=== PATIENT | female | born 1960 | race Caucasian/White ===

== ENCOUNTER 2020-09-20 09:48 | Outpatient (CLI) | payer BC, SELFPAY ==
--- NOTE | 2020-09-20 09:54 | ECHO_ITS ---
Patient Info Name: Eugenia Pinzon Age: 60 years : 1960 Gender: Female Ht: 63 in Wt: 225 lbs BSA: 2.18 m2 HR: 84 bpm BP: 158 / 89 mmHg Technical Quality: Good Exam Date: 09/20/2020 10:05 AM Exam Location: [facility] Patient Status: Outpatient Admit Date: 09/20/2020 Staff Ordering Physician: Cole Freedman DO [place] Supervisor: Rei Yost, ZOE, RT Attending Provider: Cole Freedman DO Referring Physician: Tano ROBINS; Exam Type: CA echo dop color flow w con Study Info Indications R60.0 - Localized edema Complete two-dimensional, color flow and Doppler transthoracic echocardiogram is performed. Summary 1. Complete two-dimensional, color flow and Doppler transthoracic echocardiogram is performed. 2. Left ventricular chamber dimension is normal. 3. Definity contrast administered improved wall motion interpretation. 4. Left ventricular systolic function is normal, estimated at 60-65%. 5. The left ventricular diastolic function is grade I diastolic dysfunction. 6. E/e' 8 is minimally elevated. 7. There is mild aortic valve sclerosis. Left Ventricle E/e' 8 is minimally elevated. Definity contrast administered improved wall motion interpretation. Left ventricular chamber dimension is normal. Left ventricular systolic function is normal, estimated at 60-65%. The left ventricular diastolic function is grade I diastolic dysfunction. Right Ventricle Right ventricular chamber dimension is normal. Right ventricular systolic function is normal. Left Atria Left atrial chamber dimension is normal. Right Atria Right atrial chamber dimension is normal. Aortic Valve The aortic valve is trileaflet. There is mild aortic valve sclerosis. There is no aortic valve stenosis. There is no aortic valve regurgitation. Pulmonic Valve There is no pulmonic regurgitation. Mitral Valve There is no mitral valve stenosis. There is no mitral valve regurgitation. Tricuspid Valve There is no tricuspid valve regurgitation. Pericardium/Pleural There is no pericardial effusion. Aorta The aortic root size at the sinus of Valsalva is normal. Left Ventricular Outflow Tract Name Value Normal LVOT 2D LVOT Diameter 1.96 cm LVOT Doppler LVOT Peak Gradient 7 mmHg LVOT Mean Gradient 4 mmHg LVOT VTI 23.22 cm LVOT VTI/AV VTI Ratio 0.84 LVOT Stroke Volume 69.94 ml LVOT CO 5.83 l/min LVOT CI 2.67 L/min/m2 Mitral Valve Name Value Normal MV Doppler MV Decel [place] 301.86 cm/s2 MV PHT 0 s MV Area (PHT) 3.73 cm2 4.00-5.00 MV Diastolic Function ---------
[2020-09-20] MEDS: PERFLUTREN LIPID MICROSPHERES 1.5 ML VIAL DILUTED TO 10 ML TOTAL VOLUME IV PUSH (11:23)
== END 2020-09-20 09:49 | disposition home or self-care (01) ==
LOC: ANHCARD 09:51
PROVIDERS: PCP Physician Assistant; Visit Provider Internal Medicine Cardiovascular Disease
DX: R60.0 Localized edema (principal)
CPT/HCPCS: C8929

== ENCOUNTER → 2020-10-03 11:07 | Outpatient (CLI) | payer BC, SELFPAY ==
--- NOTE | ~2020-10-03 | XR_ITS ---
EXAMINATION: XR chest 2V EXAM DATE: 10/03/2020 11:31 INDICATION: R06.02 - Shortness of breath TECHNIQUE: Frontal and lateral projections of the chest obtained and reviewed. Comparison is made to prior examination from 07/22/2019. FINDINGS: The lungs are clear. There are no pleural effusions. The cardiomediastinal silhouette is within normal limits. There is no pneumothorax suspected. The bones and soft tissues are unremarkab le. IMPRESSION: No acute cardiopulmonary findings. Reviewed, dictated and finalized at location B. DESK SPECIALIST
== END ==
PROVIDERS: PCP Physician Assistant; Visit Provider Physician Assistant
DX: R06.02 Shortness of breath (principal)
CPT/HCPCS: 71046

== ENCOUNTER → 2021-07-25 08:42 | Outpatient (CLI) | payer BC, SELFPAY ==
[2021-07-25 20:01] LABS: SARS-CoV-2 RNA PCR Negative
== END ==
PROVIDERS: PCP Physician Assistant; Visit Provider Physician Assistant
DX: R68.89 Other general symptoms and signs (principal); Z20.822 Contact with and (suspected) exposure to COVID-19
CPT/HCPCS: C9803; U0003; U0005

== ENCOUNTER 2021-08-07 14:16 | Outpatient (CLI) | payer BC, SELFPAY ==
--- NOTE | ~2021-08-07 | XR_ITS ---
XR finger 1st RT min 2V 08/07/2021 14:59 Indication: Right first finger pain Procedure: 3 views right first finger Comparison: No prior studies for comparison. Findings: There is polyarticular osteoarthritis involving the first carpal metacarpal, metacarpophala ngeal and interphalangeal joints. No acute fracture or traumatic malalignment. No significant soft ti ssue abnormality. No foreign body. 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 Reviewed, dictated and finalized at location A. 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
--- NOTE | ~2021-08-07 | XR_ITS ---
XR chest 2V 08/07/2021 14:59 Indication: Family history of malignant neoplasm. Procedure: 2 views of the chest Comparison: Comparison to multiple prior studies sequentially, with oldest reviewed study dated 05/22. Findings: There are chronic linear infiltrates of the mid and lower lung zones. Heart size normal. No acute focal pneumonia, pleural effusion, edema or pneumothorax. No acute osseous abnormality. Impression: 1: Chronic linear infiltrates of the mid and lower lung zones which may represent atelectasis or scar ring. Reviewed, dictated and finalized at location A. Impression: 1: Chronic linear infiltrates of the mid and lower lung zones which may represe nt atelectasis or scarring.
== END 2021-08-07 14:17 | disposition home or self-care (01) ==
LOC: ANHIMG 14:25
PROVIDERS: PCP Physician Assistant; Visit Provider Physician Assistant
DX: M79.644 Pain in right finger(s) (principal); M19.041 Primary osteoarthritis, right hand; R91.8 Other nonspecific abnormal finding of lung field; Z80.1 Family history of malignant neoplasm of trachea, bronchus and lung
CPT/HCPCS: 71046; 73140

== ENCOUNTER → 2021-08-08 08:11 | Outpatient (CLI) | payer BC, SELFPAY ==
[2021-08-08 20:44] LABS: SARS-CoV-2 RNA PCR Negative
== END ==
PROVIDERS: PCP Physician Assistant; Visit Provider Physician Assistant
DX: R68.89 Other general symptoms and signs (principal); Z20.822 Contact with and (suspected) exposure to COVID-19
CPT/HCPCS: C9803; U0003; U0005

== ENCOUNTER 2021-08-21 15:00 | Outpatient (CLI) | payer BC, SELFPAY ==
--- NOTE | ~2021-08-21 | XR_ITS ---
XR chest 2V 08/21/2021 15:31 Indication: Cough Procedure: 2 view chest Comparison: Comparison to multiple prior studies sequentially, with oldest reviewed study dated 06/13. Findings: Chronic bibasilar atelectasis/scarring. No acute focal pneumonia, edema or effusion. Heart size normal. Mediastinal contour is unchanged. No significant pleural effusion or pneumothorax. Impression: 1: No acute cardiopulmonary disease. Reviewed, dictated and finalized at location A. Impression: 1: No acute cardiopulmonary disease.
== END 2021-08-21 15:01 | disposition home or self-care (01) ==
LOC: ANHIMG 15:04
PROVIDERS: PCP Physician Assistant; Visit Provider Physician Assistant
DX: R05 Cough (principal); R06.02 Shortness of breath
CPT/HCPCS: 71046

== ENCOUNTER 2021-09-13 13:15 | Outpatient (CLI) | payer BC, SELFPAY ==
--- NOTE | ~2021-09-13 | XR_ITS ---
XR chest 2V DATE: 09/13/2021 13:51 INDICATION: Cough, productive. Asthma. Smoker. TECHNIQUE: PA and lateral views COMPARISON: 08/21/2021 AP and lateral chest FINDINGS: Chronic mild discoid scarring in the mid to lower lungs. No pulmonary consolidation, pleural effusion, pulmonary vascular congestion or pneumothorax is detect ed. Heart size appears within normal limits. Diffuse osteopenia. 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
== END 2021-09-13 13:16 | disposition home or self-care (01) ==
PROVIDERS: PCP Physician Assistant; Visit Provider Physician Assistant
DX: R05.9 Cough, unspecified (principal); R91.8 Other nonspecific abnormal finding of lung field
CPT/HCPCS: 71046

== ENCOUNTER 2022-01-03 09:53 | Outpatient (CLI) | payer BC, SELFPAY ==
[2022-01-03 10:20] VITALS: PULSE 82; O2SAT 96
[2022-01-03 10:25] VITALS: PULSE 98; O2SAT 95
[2022-01-03 10:35] VITALS: PULSE 86; O2SAT 97
--- NOTE | 2022-01-03 10:38 | HOMEO2EVAL ---
Evaluation was performed at [facility] Home Oxygen Evaluation RC: Home Oxygen (O2) Evaluation Start: 01/03/22 10:35 Freq: Status: Active Protocol: RPE Activity Type Activity Date Activity User E-Sign Co-Sign Detail Recorded Client Recorded Date Recorded By Document 01/03/22 10:20 DJO [email or web address] 01/03/22 10:38 DJO Document 01/03/22 10:25 DJO [email or web address] 01/03/22 10:38 DJO Document 01/03/22 10:35 DJO [email or web address] 01/03/22 10:38 DJO 01/03/22 01/03/22 01/03/22 10:20 10:25 10:35 Home O2 Evaluation Test Phase Resting Exercise Resting Oxygen Delivery Room Air Room Air Room Air Pulse Oximetry (90-100 %) 96 95 97 Pulse Rate (60-100 beats/min) 82 98 86 Activity Tolerance Poor Ambulation Distance (feet) 50 Ambulation Distance (meters) 15.23 Treatment Charges O2 Evaluation - Outpatient
--- NOTE | 2022-01-06 15:14 | WPDPFTINT ---
PFT Procedure Performed PFT Procedure Performed Spirometry with Pre/Post Bronchodilator Plethysmography (Lung Vol) Diffusing Cap (DLCO) Flow Vol Loop PFT Interpretation This is a pulmonary function test with pre and post-bronchodilator spirometry, plethysmography and diffusing capacity. The test was performed and results interpreted in accordance with the 2019 and 2005 ATS/ERS Task Force guidelines respectively using the Global Lung Function Initiative-2012 reference equations. Patient demonstrated good effort and cooperation. Reproducibility criteria were met. The quality of the pre bronchodilator spirometry maneuver was Grade A and post bronchodilator spirometry maneuver was Grade A. Findings: Spirometry: the contour the inspiratory and expiratory flow tracing are normal. The pre bronchodilator FVC is 2.97 L, 100% predicted. The pre bronchodilator FEV1 is 2.34 L, 100% predicted, the pre bronchodilator FEV1: FVC ratio 79%. The post bronchodilator FVC is 2.70 L, representing a 9% decrease. The post bronchodilator FEV1 is 2.21 L, representing a 5% decrease. The post bronchodilator FEV1: FVC ratio was 82%. Plethysmography: The total lung capacity is 4.59 L, 94% predicted. The functional residual capacity is 1.96 L, 71% predicted. The residual volume is 1.62 L, 81% predicted. Diffusing capacity: The diffusing capacity unadjusted for hemoglobin is 20.9, 100% predicted. The diffusing capacity adjusted for alveolar volume is 5.22, 117% predicted. Impression: The spirometry is normal without evidence of an obstructive abnormality. There is no significant improvement after inhaling a single dose of albuterol. The lung volumes are normal. The diffusing capacity is normal. There are no prior studies for comparison
== END 2022-01-03 09:54 | disposition home or self-care (01) ==
PROVIDERS: PCP Physician Assistant; Visit Provider Internal Medicine Pulmonary Disease
DX: J45.909 Unspecified asthma, uncomplicated (principal)
CPT/HCPCS: 94060; 94618; 94726; 94729

== ENCOUNTER 2022-01-31 13:09 | Outpatient (CLI) | payer BC, SELFPAY | END 2022-01-31 13:10 | disposition home or self-care (01) | LOC: ANHLAB 13:12 | PROVIDERS: Visit Provider Internal Medicine Pulmonary Disease | DX: J45.909 Unspecified asthma, uncomplicated (principal); R05.9 Cough, unspecified | CPT/HCPCS: 87070; 87205 ==

== ENCOUNTER 2022-06-20 12:35 | Emergency (ER) | payer BC, SELFPAY ==
--- NOTE | ~2022-06-20 | XR_ITS ---
EXAMINATION: XR chest 2V DATE: 06/20/2022 13:24 INDICATION: Chest pain. TECHNIQUE: Frontal and lateral views of the chest were obtained. COMPARISON: Chest 2 views 09/13/2021, CT abdomen and pelvis 09/28/2019 FINDINGS: There are chronic reticular opacities in the mid and lower lung zones. No pleural effusion or pneumothorax. The heart size is normal. IMPRESSION: 1. Chronic reticular opacities in the mid and lower lung zones, likely recurrent mild atelectasis gavin adriano chronic interstitial lung disease. Reviewed, dictated and finalized at location A. IMPRESSION: 1. Chronic reticular opacities in the mid and lower lung zones, likely recurren t mild atelectasis versus chronic interstitial lung disease.
--- NOTE | 2022-06-20 12:36 | ECG_ITS ---
Measurements Intervals [place] Rate: 76 P: 36 GA: 140 QRS: 64 QRSD: 93 T: 61 QT: 379 QTc: 427 Interpretive Statements SINUS RHYTHM INCOMPLETE RIGHT BUNDLE BRANCH BLOCK BORDERLINE ECG Electronically Signed On 06-20-2022 16:47:32 CDT by Cole Freedman D.O.
[2022-06-20 12:44] VITALS: BP 136/83; PULSE 73; RESP 16; TEMP 36.4; O2SAT 95
[2022-06-20 12:50] LABS: Basophils Absolute Auto 0.1 K/mm3 (0.0-0.1); Basophils Percent Auto 0.7 % (0.2-1.2); Eosinophils Absolute Auto 0.2 K/mm3 (0-0.3); Eosinophils Percent Auto 2.4 % (0-4.4); Hematocrit 40.3 % (37.0-47.0); Hemoglobin 12.7 g/dL (12.0-15.0); Immature Granulocyte Absolute 0.06 K/mm3 (0.00-0.031); Immature Granulocyte Percent A 0.8 % (0-0.5); Lymphocytes Absolute Auto 1.95 K/mm3 (0.9-3.2); Lymphocytes Percent Auto 26.3 % (18.3-44.2); Mean Corpuscular HGB Conc 31.5 g/dl (32-36); Mean Corpuscular Hemoglobin 28.9 pg (26-34); Mean Corpuscular Volume 91.8 fl (80-100); Mean Platelet Volume 10.2 fl (7.4-10.4); Monocytes Absolute Auto 0.6 K/mm3 (0.1-0.6); Monocytes Percent Auto 7.4 % (2.6-8.5); Neutrophils Absolute Auto 4.6 K/mm3 (1.3-6.7); Neutrophils Percent Auto 62.4 % (45.5-73.1); Platelet Count Result 291 k/mm3 (150-375); Red Blood Count 4.39 M/mm3 (4.2-5.4); Red Cell Distribution Width 14.8 % (11.5-14.5); White Blood Count 7.4 K/mm3 (4.5-10.0)
[2022-06-20 13:01] LABS: Alanine Aminotransferase 22 U/L (6-35); Albumin Level 3.8 g/dL (3.5-5.1); Alkaline Phosphatase 157 U/L (38-126); Anion Gap 7 mmol/L (8-16); Aspartate Amino Transferase 19 U/L (14-36); Bilirubin,Total 0.2 mg/dL (0.2-1.3); Blood Urea Nitrogen 13 mg/dL (7-17); Calcium 9.6 mg/dL (8.4-10.2); Carbon Dioxide 23 mmol/L (22-30); Chloride 106 mmol/L (98-107); Estimated CRCL calculation 67 ml/min; Estimated Glomerular Filt Rate > 60; Glucose 104 mg/dL (65-110); INR 0.9; Lipase 55 U/L (23-300); Potassium 4.5 mmol/L (3.4-5.0); Prothrombin Time 12.2 Seconds (11.1-14.7); Sodium 136 mmol/L (137-145)
[2022-06-20 13:02] LABS: Partial Thromboplastin Time 32.3 SECONDS (22.3-36.8)
[2022-06-20 13:13] LABS: Troponin I < 0.012 ng/mL (0.000-0.034)
[2022-06-20 14:32] VITALS: BP 138/75; PULSE 68; RESP 12; O2SAT 97
--- NOTE | 2022-06-20 14:43 | ED.CHESTPAIN ---
HPI - Chest Pain General Chief Complaint: Chest Pain Stated Complaint: chest pain Time Seen by Provider: 06/20/22 14:14 Source: patient Mode of arrival: ambulatory Limitations: no limitations History of Present Illness HPI narrative: This is a 61-year-old female that presents to the emergency department for an episode of chest pain today. Reports she was seated in the car. She started to have what she felt was indigestion. She tried to take a Tums with little relief. She then started to have some sharp substernal chest pain. Reports she felt like there was an elephant sitting on her chest. She took a dose of nitroglycerin. The pain has slowly resolved since. 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 Reports she chronically has a cough and is short of breath. Denies fevers. Related Data Home Medications Medication Instructions Recorded Confirmed albuterol sulfate 2.5 mg/3 mL 2.5 mg inhalation QID 12/15/19 05/21/22 (0.083 %) solution for nebulization albuterol sulfate 90 mcg/actuation 2 puff inhalation Q4-6H PRN 12/15/19 05/21/22 aerosol inhaler (ProAir HFA) aspirin 81 mg tablet,delayed 81 mg PO DAILY 12/15/19 05/21/22 release (Adult Low Dose Aspirin) biotin 5 mg capsule 5 mg PO DAILY 12/15/19 05/21/22 diphenoxylate-atropine 2.5 2 tablet PO QID PRN 12/15/19 05/21/22 mg-0.025 mg tablet (Lomotil) fluoride (sodium) 1.1 % dental gel 1 applic dental DAILY 12/15/19 05/21/22 (PreviDent) galcanezumab-gnlm 120 mg/mL 120 mg subcut MONTHLY 12/15/19 05/21/22 subcutaneous pen injector (Emgality Pen) glatiramer 20 mg/mL subcutaneous 20 mg subcut DAILY 12/15/19 05/21/22 syringe (Copaxone) mecobalamin (vitamin B12) 5,000 5,000 mcg PO .QD 12/15/19 05/21/22 mcg disintegrating tablet methylphenidate HCl 20 mg tablet 20 mg PO BID 12/15/19 05/21/22 multivitamin (Multiple Vitamins 1 tablet PO DAILY 12/15/19 05/21/22 tablet) pantoprazole 40 mg tablet,delayed 40 mg PO BID 12/15/19 05/21/22 release zinc 50 mg tablet 50 mg PO DAILY 12/15/19 05/21/22 glucosamine-chondroitin 500 mg-400 1 cap PO TID 08/27/20 05/21/22 mg capsule simethicone 125 mg chewable tablet 250 mg PO TID 08/27/20 05/21/22 (Gas-X Extra Strength) tiotropium 2.5 mcg-olodaterol 2.5 1 puff inhalation BID 08/27/20 05/21/22 mcg/actuation mist for inhalation (Stiolto Respimat) calcium carbonate 200 mg calcium 400 mg PO TID PRN 03/05/21 05/21/22 (500 mg) chewable tablet (Tums) cranberry 400 mg capsule 400 mg PO TID 03/05/21 05/21/22 acetaminophen-codeine PO PRN 08/07/21 05/21/22 [Tylenol-Codeine #3] baclofen 10 mg tablet 30 mg PO QID muscle spasm 08/07/21 05/21/22 cetirizine 10 mg tablet 10 mg PO 08/07/21 05/21/22 cromolyn 20 mg/2 mL solution for 2 ml inhalation QID PRN 08/07/21 05/21/22 nebulization desipramine 10 mg tablet 15 mg PO QPM 08/07/21 05/21/22 hyoscyamine sulfate 0.125 mg 0.125 mg PO QID PRN 08/07/21 05/21/22 sublingual tablet omega 8-lln-rgs-fish oil 1,000 mg 1 cap PO DAILY 03/05/22 05/21/22 (120 mg-180 mg) capsule (Fish Oil) fluticasone propionate 50 1 spray intranasal DAILY 05/19/22 05/21/22 mcg/actuation nasal spray,suspension (Flonase Allergy Relief) Allergies Allergy/AdvReac Type Severity Reaction Status Date / Time adhesive tape Allergy Mild Unknown Verified 06/20/22 14:01 amphetamine [From Adderall] Allergy Mild Other Verified 06/20/22 14:01 armodafinil [From Nuvigil] Allergy Mild Unknown Verified 06/20/22 14:01 aspartame Allergy Mild Unknown Verified 06/20/22 14:01 [From Nutrasweet Aspartame] cefuroxime [From Ceftin] Allergy Mild Unknown Verified 06/20/22 14:01 dextroamphetamine Allergy Mild Other Verified 06/20/22 14:01 [From Adderall] gabapentin [From Neurontin] Allergy Mild Unknown Verified 06/20/22 14:01 latex Allergy Mild Unknown Verified 06/20/22 14:01 liver extract Allergy Mild Other Verified 06/20/22 14:01 meperidine [From Demerol] Allergy Mild Unknown Verified 06/20/22 14:01 metoclopramide [From
[2022-06-20 14:48] VITALS: BP 117/96; PULSE 72; RESP 13; O2SAT 98
[2022-06-20 15:06] LABS: SARS-CoV-2 RNA PCR Negative
[2022-06-20 15:17] VITALS: BP 140/73; PULSE 71; RESP 17
[2022-06-20 15:23] LABS: D Dimer 0.35 ug/mL (<0.48)
[2022-06-20 15:48] LABS: NT Pro B Type Natriuretic Pept 42 pg/mL (5-100)
[2022-06-20 16:04] LABS: Troponin I < 0.012 ng/mL (0.000-0.034)
[2022-06-20 16:37] VITALS: BP 140/77; PULSE 78; RESP 13; O2SAT 95
[2022-06-20 17:00] VITALS: BP 142/76; PULSE 76; RESP 16; O2SAT 98
--- NOTE | 2022-06-20 18:35 | PM.IMHP ---
H&P: HPI History of Present Illness Date/Time: 06/20/22 1700 Chief Complaint: THIS PT. WAS NOT EXAMINED OR ADMITTED BY THIS PROVIDER WAS REQUESTED BY THE ER PROVIDER, THE PATIENT SIGNED OUT AGAINST MEDICAL ADVICE PRIOR TO ME BEING ABLE TO ASSESS HER. [facility] Past Medical History Medical History (Updated 06/20/22 @ 16:31 by Celia Obando PA-C) Anxiety Asthma High cholesterol Hypertension Hypokalemia Hypothyroidism Multiple sclerosis Surgical History Surgical History H/O arthroscopy of shoulder H/O bilateral mastectomy H/O breast biopsy H/O colonoscopy H/O nasal septoplasty History of appendectomy History of endoscopic sinus surgery History of hysterectomy Family History Family History Mother Family history of lung cancer Family history of malignant neoplasm of breast in first degree relative Father Family history of lung cancer Family history of migraine headaches Other Diabetes mellitus Family history of heart disease in male family member before age 55 Family history of kidney disease Social History Social History Smoking packs per day: 2 Smoking cigarettes per day: 40.0 Years smoked: 20 Smoking pack-years: 40.00 Smoking status: Never smoker Second hand tobacco smoke exposure: No Smoking end date: 11/30/90 Alcohol intake: never Substance use: never Meds Home Medications and Allergies Home Medications Medication Instructions Recorded Confirmed Type albuterol sulfate 2.5 mg/3 mL 2.5 mg inhalation QID 12/15/19 05/21/22 History (0.083 %) solution for nebulization albuterol sulfate 90 mcg/actuation 2 puff inhalation Q4-6H PRN 12/15/19 05/21/22 History aerosol inhaler (ProAir HFA) aspirin 81 mg tablet,delayed 81 mg PO DAILY 12/15/19 05/21/22 History release (Adult Low Dose Aspirin) biotin 5 mg capsule 5 mg PO DAILY 12/15/19 05/21/22 History diphenoxylate-atropine 2.5 2 tablet PO QID PRN 12/15/19 05/21/22 History mg-0.025 mg tablet (Lomotil) fluoride (sodium) 1.1 % dental gel 1 applic dental DAILY 12/15/19 05/21/22 History (PreviDent) galcanezumab-gnlm 120 mg/mL 120 mg subcut MONTHLY 12/15/19 05/21/22 History subcutaneous pen injector (Emgality Pen) glatiramer 20 mg/mL subcutaneous 20 mg subcut DAILY 12/15/19 05/21/22 History syringe (Copaxone) mecobalamin (vitamin B12) 5,000 5,000 mcg PO .QD 12/15/19 05/21/22 History mcg disintegrating tablet methylphenidate HCl 20 mg tablet 20 mg PO BID 12/15/19 05/21/22 History multivitamin (Multiple Vitamins 1 tablet PO DAILY 12/15/19 05/21/22 History tablet) pantoprazole 40 mg tablet,delayed 40 mg PO BID 12/15/19 05/21/22 History release zinc 50 mg tablet 50 mg PO DAILY 12/15/19 05/21/22 History glucosamine-chondroitin 500 mg-400 1 cap PO TID 08/27/20 05/21/22 History mg capsule simethicone 125 mg chewable tablet 250 mg PO TID 08/27/20 05/21/22 History (Gas-X Extra Strength) tiotropium 2.5 mcg-olodaterol 2.5 1 puff inhalation BID 08/27/20 05/21/22 History mcg/actuation mist for inhalation (Stiolto Respimat) furosemide 20 mg tablet 20 mg PO BID #180 tabs 12/11/20 05/21/22 Rx amantadine HCl 100 mg capsule 100 mg PO BID #180 caps 12/25/20 05/21/22 Rx calcium carbonate 200 mg calcium 400 mg PO TID PRN 03/05/21 05/21/22 History (500 mg) chewable tablet (Tums) cranberry 400 mg capsule 400 mg PO TID 03/05/21 05/21/22 History mupirocin 2 % topical ointment 1 applic topical DAILY #22 grams 03/11/21 05/21/22 Rx montelukast 10 mg tablet 10 mg PO DAILY #90 tabs 07/02/21 05/21/22 Rx (Singulair) donepezil 10 mg tablet 10 mg PO DAILY #90 tabs 07/22/21 05/21/22 Rx acetaminophen-codeine PO PRN 08/07/21 05/21/22 History [Tylenol-Codeine #3] baclofen 10 mg tablet 30 mg PO QID muscle spasm 08/07/21
== END 2022-06-20 17:00 | disposition left against medical advice (07) ==
PROVIDERS: Physician Assistant; Emergency Provider Emergency Medicine; PCP Physician Assistant
DX: J45.909 Unspecified asthma, uncomplicated (principal); R07.9 Chest pain, unspecified; Z20.822 Contact with and (suspected) exposure to COVID-19; Z79.82 Long term (current) use of aspirin; E78.00 Pure hypercholesterolemia, unspecified; I10 Essential (primary) hypertension; E03.9 Hypothyroidism, unspecified; G35 Multiple sclerosis; Z90.13 Acquired absence of bilateral breasts and nipples; Z90.710 Acquired absence of both cervix and uterus; Z87.891 Personal history of nicotine dependence; I45.10 Unspecified right bundle-branch block
CPT/HCPCS: 36415; 71046; 80053; 83690; 83880; 84484; 85025; 85380; 85610; 85730; 93005; 99284; C9803; U0003; U0005

== ENCOUNTER 2022-06-27 14:11 | Outpatient (CLI) | payer BC, SELFPAY | END 2022-06-27 14:12 | disposition home or self-care (01) | LOC: ANHLAB 14:12 | PROVIDERS: PCP Physician Assistant; Visit Provider Internal Medicine | DX: B37.0 Candidal stomatitis (principal) | CPT/HCPCS: 87102; 87106; 87206 ==

== ENCOUNTER 2022-07-14 10:31 | Emergency (ER) | payer BC, SELFPAY ==
[2022-07-14 10:41] VITALS: BP 150/94; PULSE 99; RESP 18; TEMP 36.3; O2SAT 96
--- NOTE | 2022-07-14 11:01 | ED.SKABFB ---
HPI - Skin/Abscess/Foreign Bdy General Chief complaint: Skin/Abscess/Foreign Body Stated complaint: Lump on Leg Time Seen by Provider: 07/14/22 11:02 Source: patient Mode of arrival: ambulatory Limitations: no limitations History of Present Illness HPI narrative: 61-year-old female presents with complaint of redness, warmth, throbbing to right lower extremity for 2 days. Unsure of injury. States started after playing with her grandkids. No history of cellulitis. Denies fever chills. Reports pain to right lower extremity when ambulatory and on palpation. All systems reviewed and negative except as noted above. Related Data Home Medications Medication Instructions Recorded Confirmed albuterol sulfate 2.5 mg/3 mL 2.5 mg inhalation QID 12/15/19 05/21/22 (0.083 %) solution for nebulization albuterol sulfate 90 mcg/actuation 2 puff inhalation Q4-6H PRN 12/15/19 05/21/22 aerosol inhaler (ProAir HFA) aspirin 81 mg tablet,delayed 81 mg PO DAILY 12/15/19 05/21/22 release (Adult Low Dose Aspirin) biotin 5 mg capsule 5 mg PO DAILY 12/15/19 05/21/22 diphenoxylate-atropine 2.5 2 tablet PO QID PRN 12/15/19 05/21/22 mg-0.025 mg tablet (Lomotil) fluoride (sodium) 1.1 % dental gel 1 applic dental DAILY 12/15/19 05/21/22 (PreviDent) galcanezumab-gnlm 120 mg/mL 120 mg subcut MONTHLY 12/15/19 05/21/22 subcutaneous pen injector (Emgality Pen) glatiramer 20 mg/mL subcutaneous 20 mg subcut DAILY 12/15/19 05/21/22 syringe (Copaxone) mecobalamin (vitamin B12) 5,000 5,000 mcg PO .QD 12/15/19 05/21/22 mcg disintegrating tablet methylphenidate HCl 20 mg tablet 20 mg PO BID 12/15/19 05/21/22 multivitamin (Multiple Vitamins 1 tablet PO DAILY 12/15/19 05/21/22 tablet) pantoprazole 40 mg tablet,delayed 40 mg PO BID 12/15/19 05/21/22 release zinc 50 mg tablet 50 mg PO DAILY 12/15/19 05/21/22 glucosamine-chondroitin 500 mg-400 1 cap PO TID 08/27/20 05/21/22 mg capsule simethicone 125 mg chewable tablet 250 mg PO TID 08/27/20 05/21/22 (Gas-X Extra Strength) tiotropium 2.5 mcg-olodaterol 2.5 1 puff inhalation BID 08/27/20 05/21/22 mcg/actuation mist for inhalation (Stiolto Respimat) calcium carbonate 200 mg calcium 400 mg PO TID PRN 03/05/21 05/21/22 (500 mg) chewable tablet (Tums) cranberry 400 mg capsule 400 mg PO TID 03/05/21 05/21/22 acetaminophen-codeine PO PRN 08/07/21 05/21/22 [Tylenol-Codeine #3] baclofen 10 mg tablet 30 mg PO QID muscle spasm 08/07/21 05/21/22 cetirizine 10 mg tablet 10 mg PO 08/07/21 05/21/22 cromolyn 20 mg/2 mL solution for 2 ml inhalation QID PRN 08/07/21 05/21/22 nebulization desipramine 10 mg tablet 15 mg PO QPM 08/07/21 05/21/22 hyoscyamine sulfate 0.125 mg 0.125 mg PO QID PRN 08/07/21 05/21/22 sublingual tablet omega 6-oas-tpm-fish oil 1,000 mg 1 cap PO DAILY 03/05/22 05/21/22 (120 mg-180 mg) capsule (Fish Oil) fluticasone propionate 50 1 spray intranasal DAILY 05/19/22 05/21/22 mcg/actuation nasal spray,suspension (Flonase Allergy Relief) albuterol sulfate 90 mcg/actuation 2 puff inhalation BID 07/14/22 07/14/22 aerosol inhaler (Ventolin HFA) anastrozole 1 mg tablet 1 mg DAILY 07/14/22 07/14/22 ergocalciferol (vitamin D2) 1,250 07/14/22 mcg (50,000 unit) capsule fluoride (sodium) 1.1 % dental gel 07/14/22 (PreviDent) furosemide 20 mg tablet mg 07/14/22 galcanezumab-gnlm 120 mg/mL mg subcut 07/14/22 subcutaneous pen injector (Emgality Pen) glatiramer 20 mg/mL subcutaneous 20 mg subcut DAILY 07/14/22 07/14/22 syringe (Copaxone) tiotropium 2.5 mcg-olodaterol 2.5 1 puff inhalation BID 07/14/22 07/14/22 mcg/actuation mist for inhalation (Stiolto Respimat) Allergies Allergy/AdvReac Type Severity Reaction Status Date / Time adhesive tape Allergy Mild Unknown Verified 07/14/22 11:01 amphetamine [From Adderall] Allergy Mild Other Verified 07/14/22 11:01 armodafinil [From Nuvigil] Allergy Mild Unknown Verified 07/14/22 11:01 aspartame A
== END 2022-07-14 11:34 | disposition home or self-care (01) ==
PROVIDERS: Emergency Provider Nurse Practitioner Family; PCP Physician Assistant
DX: L03.115 Cellulitis of right lower limb (principal); Z87.891 Personal history of nicotine dependence; J45.909 Unspecified asthma, uncomplicated; E78.00 Pure hypercholesterolemia, unspecified; I10 Essential (primary) hypertension; E03.9 Hypothyroidism, unspecified; G35 Multiple sclerosis; Z90.13 Acquired absence of bilateral breasts and nipples
CPT/HCPCS: 99213; G0463

== ENCOUNTER 2022-07-24 15:12 | Emergency (ER) | payer BC, SELFPAY ==
--- NOTE | 2022-07-24 15:21 | ED.URI ---
HPI - URI/Sore Throat General Chief Complaint: Upper Respiratory Infection Stated Complaint: coughing, bottom right leg rash Time Seen by Provider: 07/24/22 15:21 Source: patient Mode of arrival: ambulatory Limitations: no limitations History of Present Illness HPI Narrative: Ms. Hunt is a 61-year-old female patient presenting to the clinic today with complaints of a cough and a rash to the right leg. She reports she was treated last week for cellulitis and has 1 more day of Bactrim to take and feels as though her symptoms have not improved. She also reports congestion and cough that is been going on for 2 to 3 years. She denies any fever or chills. She reports that she has bringing up some yellowish phlegm. Related Data Home Medications Medication Instructions Recorded Confirmed albuterol sulfate 2.5 mg/3 mL 2.5 mg inhalation QID 12/15/19 05/21/22 (0.083 %) solution for nebulization albuterol sulfate 90 mcg/actuation 2 puff inhalation Q4-6H PRN 12/15/19 05/21/22 aerosol inhaler (ProAir HFA) Shortness Of Breath Or Wheezing aspirin 81 mg tablet,delayed 81 mg PO DAILY 12/15/19 07/14/22 release (Adult Low Dose Aspirin) biotin 5 mg capsule 5 mg PO DAILY 12/15/19 07/14/22 diphenoxylate-atropine 2.5 2 tablet PO QID PRN Abdominal Pain 12/15/19 05/21/22 mg-0.025 mg tablet (Lomotil) galcanezumab-gnlm 120 mg/mL 120 mg subcut MONTHLY 12/15/19 07/14/22 subcutaneous pen injector (Emgality Pen) glatiramer 20 mg/mL subcutaneous 20 mg subcut DAILY 12/15/19 07/14/22 syringe (Copaxone) mecobalamin (vitamin B12) 5,000 5,000 mcg PO .QD 12/15/19 05/21/22 mcg disintegrating tablet methylphenidate HCl 20 mg tablet 20 mg PO BID 12/15/19 05/21/22 multivitamin (Multiple Vitamins 1 tablet PO DAILY 12/15/19 05/21/22 tablet) pantoprazole 40 mg tablet,delayed 40 mg PO BID 12/15/19 05/21/22 release zinc 50 mg tablet 50 mg PO DAILY 12/15/19 07/14/22 glucosamine-chondroitin 500 mg-400 1 cap PO TID 08/27/20 05/21/22 mg capsule simethicone 125 mg chewable tablet 250 mg PO TID 08/27/20 05/21/22 (Gas-X Extra Strength) calcium carbonate 200 mg calcium 400 mg PO TID PRN Abdominal Pain 03/05/21 05/21/22 (500 mg) chewable tablet (Tums) cranberry 400 mg capsule 400 mg PO TID 03/05/21 05/21/22 baclofen 10 mg tablet 30 mg PO QID muscle spasm 08/07/21 07/14/22 cetirizine 10 mg tablet 10 mg PO 08/07/21 05/21/22 cromolyn 20 mg/2 mL solution for 2 ml inhalation QID PRN Shortness 08/07/21 05/21/22 nebulization Of Breath Or Wheezing desipramine 10 mg tablet 15 mg PO QPM 08/07/21 07/14/22 hyoscyamine sulfate 0.125 mg 0.125 mg PO QID PRN Pain 08/07/21 07/14/22 sublingual tablet omega 4-zsz-cgz-fish oil 1,000 mg 1 cap PO DAILY 03/05/22 05/21/22 (120 mg-180 mg) capsule (Fish Oil) fluticasone propionate 50 1 spray intranasal DAILY 05/19/22 05/21/22 mcg/actuation nasal spray,suspension (Flonase Allergy Relief) anastrozole 1 mg tablet 1 mg DAILY 07/14/22 07/14/22 glatiramer 20 mg/mL subcutaneous 20 mg subcut DAILY 07/14/22 07/14/22 syringe (Copaxone) tiotropium 2.5 mcg-olodaterol 2.5 1 puff inhalation BID 07/14/22 07/14/22 mcg/actuation mist for inhalation (Stiolto Respimat) budesonide 0.5 mg/2 mL suspension mg 07/24/22 for nebulization Allergies Allergy/AdvReac Type Severity Reaction Status Date / Time adhesive tape Allergy Mild Unknown Verified 07/24/22 15:31 amphetamine [From Adderall] Allergy Mild Other Verified 07/24/22 15:31 armodafinil [From Nuvigil] Allergy Mild Unknown Verified 07/24/22 15:31 aspartame Allergy Mild Unknown Verified 07/24/22 15:31 [From Nutrasweet Aspartame] cefuroxime [From Ceftin] Allergy Mild Unknown Verified 07/24/22 15:31 dextroamphetamine Allergy Mild Other Verified 07/24/22 15:31 [From Adderall] gabapentin [From Neurontin] Allergy Mild Unknown Verified 07/24/22 15:31 latex Allergy Mild Unknown Verified 07/24/22 15:31 liver extract Allergy Mild Other Verified 07/24/22 15:31 mepe
[2022-07-24 15:27] VITALS: BP 167/85; PULSE 97; RESP 18; TEMP 36.2; O2SAT 96
== END 2022-07-24 15:57 | disposition home or self-care (01) ==
PROVIDERS: Emergency Provider Nurse Practitioner Family; PCP Physician Assistant
DX: R60.0 Localized edema (principal); I87.2 Venous insufficiency (chronic) (peripheral); J30.9 Allergic rhinitis, unspecified; Z87.891 Personal history of nicotine dependence; J45.909 Unspecified asthma, uncomplicated; E78.00 Pure hypercholesterolemia, unspecified; E03.9 Hypothyroidism, unspecified; G35 Multiple sclerosis; Z79.82 Long term (current) use of aspirin
CPT/HCPCS: 99211; G0463

== ENCOUNTER 2022-07-28 10:10 | Outpatient (RCR) | payer BC, SELFPAY ==
[2022-07-28 10:54] VITALS: BMI 59.4
--- NOTE | 2022-08-05 11:15 | PCWOUND ---
CWON NOTE Patient called stating that she has cellulitis that is out of control. Patient states she called her PCP exchange and they put her on an antibiotic and was told to contact wound center for assessment. Patient was asked if she has an open wound, and she states no. Explained to patient that as a nurse driven wound center we cannot prescribe any type of medications for cellulitis and that we can only see her if she has an open wound. Patient was instructed to seek treatment from her PCP or go to the ER for additional treatment if she felt the cellulitis was getting worse. Patient states she feels like we're just pushing her off. Again it was explained to the patient that without a wound, she cannot be seen in the wound center. Call was placed to patients PCP office and explained situation to office staff. Staff in agreement and will let PCP know.
== END 2022-10-13 09:28 | disposition home or self-care (01) ==
LOC: ANHWOC 10:10
PROVIDERS: PCP Physician Assistant; Visit Provider Physician Assistant
DX: L03.115 Cellulitis of right lower limb (principal)
CPT/HCPCS: 99212; 99213; G0463

== ENCOUNTER → 2022-07-28 12:23 | Outpatient (CLI) | payer BC, SELFPAY ==
--- NOTE | ~2022-07-28 | DEXA_ITS ---
Bone Density Report Name: JOVITA ELLIS Age: 61 Sex: Female Ethnicity: White Date of : 1960 Indication: osteopenia; height loss; asthma or emphysema; hysterectomy; postmenopausal Referring Provider: Rod Buckner Study: Bone densitometry was performed. Exam Date: July 28, 2022 Accession number: [id number] Bone Density: Region BMD T-score Z-score Classification AP Spine (L1-L4) 0.802 -2.2 -0.5 Osteopenia Femoral Neck (Left) 0.604 -2.2 -0.8 Osteopenia Total Hip (Left) 0.788 -1.3 -0.1 Osteopenia Femoral Neck (Right) 0.694 -1.4 0.1 Osteopenia Total Hip (Right) 0.769 -1.4 -0.3 Osteopenia Total Hip Mean 0.779 -1.4 -0.2 Osteopenia World Health Organization criteria for BMD impression classify patients as: Normal (T-score at or above -1.0), Osteopenia (T-score between -1.0 and -2.5), or Osteoporosis (T-score at or below -2.5). 10-year Fracture Risk(1): Major Osteoporotic Fracture 9.3% Hip Fracture 1.3% Reported Risk Factors: [place] (), Neck BMD=0.604, BMI=44.6 (1) FRAX(R) Version 3.08. Fracture probability calculated for an untreated patient. Fracture probability may be lower if the patient has received treatment. Previous Exams: Region Exam Age BMD T-score BMD Change BMD Change Date g/cm2 vs Baseline vs Previous AP Spine(L1-L4) 07/28/2022 61 0.802 -2.2 -0.093 -0.093 06/20/2011 50 0.895 -1.4 Total Hip(Left) 07/28/2022 61 0.788 -1.3 -0.017 -0.017 06/20/2011 50 0.805 -1.1 Total Hip(Right) 07/28/2022 61 0.769 -1.4 -0.064 -0.064 06/20/2011 50 0.833 -0.9 *Denotes significance at 95% confidence level, LSC for AP Spine = 0.022 g/cm2, LSC for Total Hip = 0.027 g/cm2 Clinical Information Provided by Patient: Has used the following medications: Vitamin D, Calcium Has the following medical conditions: Asthma or Emphysema, Hysterectomy Patient maximum height was 63.5 Menopause Age: 31 No regular weight bearing exercise Onset of menses at age 9 Number of children 2 Impression: The patient has low bone mass, based on the Total Spine T-score. The patient has an estimated ten-year risk of hip fracture of 1.3% and an estimated ten-year risk of major fracture of 9.3%, based on the WHO FRAX algorithm. No significant bone loss was observed. Discussion: BONE DENSITY IS LOW AT ONE OR MORE SKELETAL SITES. This patient's lowest T-score is low at one or more skelet
== END ==
PROVIDERS: PCP Physician Assistant; Visit Provider Physician Assistant
DX: M85.88 Other specified disorders of bone density and structure, other site (principal); M85.852 Other specified disorders of bone density and structure, left thigh; M85.851 Other specified disorders of bone density and structure, right thigh
CPT/HCPCS: 77080

== ENCOUNTER 2022-11-29 12:36 | Emergency (ER) | payer BC, SELFPAY ==
[2022-11-29 14:01] VITALS: BP 127/68; PULSE 88; RESP 16; TEMP 36.6; O2SAT 98
--- NOTE | 2022-11-29 14:47 | ED.URI ---
HPI - URI/Sore Throat General Chief Complaint: Upper Respiratory Infection Stated Complaint: sinus inf,cough Time Seen by Provider: 11/29/22 14:47 Source: patient and RN notes reviewed Mode of arrival: ambulatory Limitations: no limitations History of Present Illness HPI Narrative: 62-year-old female with a significant medical history presented for complaint of sinus pressure and cough over the last 4 days. She endorses cough is severe, productive and causes shortness of breath during a coughing spell. She wheezing, nausea, vomiting, diarrhea, fevers or chills. She states it feels like a sinus tract which she gets routine. She is taking Zyrtec for symptoms. Scheduled with pcp in 3 days. MD elicited complaint: cough Related Data Home Medications Medication Instructions Recorded Confirmed albuterol sulfate 2.5 mg/3 mL 2.5 mg inhalation QID 12/15/19 09/17/22 (0.083 %) solution for nebulization aspirin 81 mg tablet,delayed 81 mg PO DAILY 12/15/19 09/17/22 release (Adult Low Dose Aspirin) biotin 5 mg capsule 5 mg PO DAILY 12/15/19 09/17/22 diphenoxylate-atropine 2.5 2 tablet PO QID PRN Abdominal Pain 12/15/19 09/17/22 mg-0.025 mg tablet (Lomotil) galcanezumab-gnlm 120 mg/mL 120 mg subcut MONTHLY 12/15/19 09/17/22 subcutaneous pen injector (Emgality Pen) glatiramer 20 mg/mL subcutaneous 20 mg subcut DAILY 12/15/19 09/17/22 syringe (Copaxone) mecobalamin (vitamin B12) 5,000 5,000 mcg PO .QD 12/15/19 09/17/22 mcg disintegrating tablet methylphenidate HCl 20 mg tablet 20 mg PO BID 12/15/19 09/17/22 multivitamin (Multiple Vitamins 1 tablet PO DAILY 12/15/19 09/17/22 tablet) zinc 50 mg tablet 50 mg PO DAILY 12/15/19 09/17/22 glucosamine-chondroitin 500 mg-400 1 cap PO TID 08/27/20 09/17/22 mg capsule simethicone 125 mg chewable tablet 250 mg PO TID 08/27/20 09/17/22 (Gas-X Extra Strength) calcium carbonate 200 mg calcium 400 mg PO TID PRN Abdominal Pain 03/05/21 09/17/22 (500 mg) chewable tablet (Tums) cranberry 400 mg capsule 400 mg PO TID 03/05/21 09/17/22 baclofen 10 mg tablet 30 mg PO QID muscle spasm 08/07/21 09/17/22 desipramine 10 mg tablet 15 mg PO QPM 08/07/21 09/17/22 hyoscyamine sulfate 0.125 mg 0.125 mg PO QID PRN Pain 08/07/21 09/17/22 sublingual tablet fluticasone propionate 50 1 spray intranasal DAILY 05/19/22 09/17/22 mcg/actuation nasal spray,suspension (Flonase Allergy Relief) anastrozole 1 mg tablet 1 mg DAILY 07/14/22 09/17/22 tiotropium 2.5 mcg-olodaterol 2.5 1 puff inhalation BID 07/14/22 09/17/22 mcg/actuation mist for inhalation (Meliuzolto Respimat) Lactobacills gasseri-Bifidobac 1 cap PO DAILY 07/28/22 09/17/22 bifidum,longum 1.5 billion cell capsule ([place]) Tylenol#3 1 - 2 tab-cap PO Q4-6H PRN 07/28/22 09/17/22 Migraine Headache acetaminophen 500 mg tablet 500 mg PO Q6H PRN Pain 07/28/22 09/17/22 (Tylenol Extra Strength) albuterol sulfate 90 mcg/actuation 2 puff inhalation QID PRN 07/28/22 09/17/22 aerosol inhaler (Ventolin HFA) Shortness Of Breath chlorpheniramine-pseudoephedrine 4 0.5 tablet PO Q4-6H PRN Allergy 07/28/22 09/17/22 mg-60 mg tablet Symptoms cholecalciferol (vitamin D3) 25 25 mcg PO DAILY 07/28/22 09/17/22 mcg (1,000 unit) capsule (Vitamin D3) okqreejqb-ANR-LL-acetaminophen 7.5 10 ml PO HS PRN Congestion 07/28/22 09/17/22 mg-60 [id number]/30mL oral liqd famotidine 40 mg tablet (Pepcid) 40 mg PO DAILY PRN Acid Reflux 07/28/22 09/17/22 fluoride (sodium) 1.1 % dental gel 1 applic dental HS 07/28/22 09/17/22 (PreviDent) loratadine 10 mg tablet (Claritin) 10 mg PO DAILY PRN Allergy Symptoms 07/28/22 09/17/22 meclizine 12.5 mg tablet 12.5 mg PO Q6H PRN Dizziness 07/28/22 09/17/22 menthol 5.8 mg lozenges ([place] 5.8 mg mucous membrane Q2-4H PRN 07/28/22 09/17/22 Cough Drops) Sore Throat mupirocin 2 % topical ointment 1 applic topical DAILY PRN Skin 07/28/22 09/17/22 Irritation phenylpropanolamine-GG 25 mg-200 2 tab
== END 2022-11-29 15:11 | disposition home or self-care (01) ==
PROVIDERS: Emergency Provider Nurse Practitioner Family; PCP Physician Assistant
DX: J06.9 Acute upper respiratory infection, unspecified (principal); Z87.891 Personal history of nicotine dependence; J45.909 Unspecified asthma, uncomplicated; E78.00 Pure hypercholesterolemia, unspecified; I10 Essential (primary) hypertension; E03.9 Hypothyroidism, unspecified; G35 Multiple sclerosis; Z79.82 Long term (current) use of aspirin; Z90.13 Acquired absence of bilateral breasts and nipples
CPT/HCPCS: 99213; G0463

== ENCOUNTER 2022-12-02 12:15 | Outpatient (CLI) | payer BC, SELFPAY ==
--- NOTE | ~2022-12-02 | XR_ITS ---
XR chest 2V DATE: 12/02/2022 12:40 INDICATION: Productive cough TECHNIQUE: PA and lateral views COMPARISON: 06/20/2022 2 view chest FINDINGS: Normal heart size. Multiple thin discoid opacities overlie the mid and lower lung zones, pr esent on 06/20/2022, consistent with chronic bilateral discoid scarring. No pulmonary infiltrate or consolidation, pleural effusion or pulmonary vascular congestion or pneumo thorax is detected. There is osteopenia. There is degenerative change of the thoracic spine. IMPRESSION: Chronic bilateral mid and lower lung discoid scarring No active cardiopulmonary disease Reviewed, dictated and finalized at location L. ICATION SUPPORT ANALYST
== END 2022-12-02 12:16 | disposition home or self-care (01) ==
PROVIDERS: PCP Physician Assistant; Visit Provider Physician Assistant
DX: R05.9 Cough, unspecified (principal)
CPT/HCPCS: 71046

== ENCOUNTER 2023-01-26 13:33 | Outpatient (CLI) | payer BC, SELFPAY ==
[2023-01-26 19:09] LABS: SARS-CoV-2 RNA PCR Negative
[2023-01-26 20:23] LABS: Strep Group A RT-PCR NOT DETECTED (Negative)
== END 2023-01-26 13:34 | disposition home or self-care (01) ==
LOC: ANHGOSHLAB 13:35
PROVIDERS: PCP Physician Assistant; Visit Provider Physician Assistant
DX: R68.89 Other general symptoms and signs (principal); J02.9 Acute pharyngitis, unspecified; Z20.822 Contact with and (suspected) exposure to COVID-19
CPT/HCPCS: 87651; U0003; U0005

== ENCOUNTER → 2023-01-30 14:36 | Outpatient (CLI) | payer BC, SELFPAY ==
--- NOTE | ~2023-01-30 | XR_ITS ---
EXAMINATION: XR thoracic spine 2V DATE: 01/30/2023 15:09 INDICATION: Thoracic back pain TECHNIQUE: AP, lateral and lateral swimmer's views of the thoracic spine were obtained. COMPARISON: None. FINDINGS: Bone alignment is normal. The bones are osteopenic which limits the sensitivity for fractur e however none is seen. The vertebral body heights are maintained. There is moderate to severe loss o f intervertebral disc space height at multiple levels in the thoracic spine. Small degenerative osteo phytes project from the anterior endplates of multiple vertebral bodies. IMPRESSION: 1. Severe thoracic spondylosis without acute findings. Reviewed, dictated and finalized at location F. EL STATIONARY ENGINEER
--- NOTE | ~2023-01-30 | XR_ITS ---
EXAMINATION: XR shoulder RT min 2V DATE: 01/30/2023 15:09 INDICATION: Right shoulder pain. TECHNIQUE: 4 views of right shoulder were obtained. COMPARISON: None. FINDINGS: Bone alignment is normal. No fracture. There is mild acromioclavicular joint osteoarthritis . The glenohumeral joint is normal. There is mild atelectasis in right midlung zone. IMPRESSION: 1. Mild osteoarthritis of acromioclavicular joint. Reviewed, dictated and finalized at location A. HELP DESK MANAGER
--- NOTE | ~2023-01-30 | XR_ITS ---
EXAMINATION:XR cervical spine 4-5V DATE: 01/30/2023 15:09 INDICATION: Neck pain TECHNIQUE: AP, lateral, lateral swimmers and odontoid views of the cervical spine are provided. COMPARISON: None FINDINGS: Alignment is normal. The odontoid process is intact. No fracture is identified. There is mi ld loss of intervertebral disc space height at C5-C6 and C6-7. Small degenerative osteophytes project from the anterior endplates of multiple vertebral bodies. There is multilevel mild facet and uncover tebral joint osteoarthritis. Prevertebral soft tissues are normal. IMPRESSION: 1. Mild cervical spondylosis without acute findings Reviewed, dictated and finalized at location F. ACE TAPPER
== END ==
PROVIDERS: PCP Physician Assistant; Visit Provider Physician Assistant
DX: M19.011 Primary osteoarthritis, right shoulder (principal); M47.892 Other spondylosis, cervical region; M47.894 Other spondylosis, thoracic region
CPT/HCPCS: 72050; 72070; 73030

== ENCOUNTER 2023-02-24 14:25 | Emergency (ER) | payer BC, SELFPAY ==
--- NOTE | ~2023-02-24 | XR_ITS ---
XR chest 2V 02/24/2023 15:16 Indication: Back pain, shortness of breath and hypertension Procedure: 2 view chest Comparison: Comparison to multiple prior studies sequentially, with oldest reviewed study dated 08/30. Findings: Linear subsegmental infiltrates of the mid and lower lungs bilaterally. No pleural effusion . Heart size normal. No pneumothorax. No acute osseous abnormality. Impression: 1: Subsegmental infiltrates of the mid and lower lungs bilaterally, unchanged, most likely atelectasi s/scarring. Reviewed, dictated and finalized at location A. Impression: 1: Subsegmental infiltrates of the mid and lower lungs bilaterally, unchanged, most likely atelectasis/scarring.
--- NOTE | 2023-02-24 14:27 | ECG_ITS ---
Measurements Intervals [place] Rate: 94 P: 21 KS: 139 QRS: 72 QRSD: 98 T: 47 QT: 360 QTc: 451 Interpretive Statements SINUS RHYTHM INCOMPLETE RIGHT BUNDLE BRANCH BLOCK BORDERLINE ECG COMPARED TO ECG 06/20/2022 12:40:32 NO SIGNIFICANT CHANGES Electronically Signed On 02-24-2023 15:42:30 CDT by Cole Freedman D.O.
[2023-02-24 14:45] VITALS: BP 146/77; PULSE 95; RESP 18; TEMP 37.1; O2SAT 97
[2023-02-24 14:47] LABS: Basophils Percent Auto 0.4 % (0.2-1.2); Eosinophils Absolute Auto 0.2 K/mm3 (0-0.3); Eosinophils Percent Auto 2.4 % (0-4.4); Hematocrit 42.8 % (37.0-47.0); Hemoglobin 13.5 g/dL (12.0-15.0); Immature Granulocyte Absolute 0.06 K/mm3 (0.00-0.031); Immature Granulocyte Percent A 0.6 % (0-0.5); Lymphocytes Absolute Auto 1.85 K/mm3 (0.9-3.2); Mean Corpuscular HGB Conc 31.5 g/dl (32-36); Mean Corpuscular Hemoglobin 27.6 pg (26-34); Mean Corpuscular Volume 87.5 fl (80-100); Mean Platelet Volume 10.6 fl (7.4-10.4); Monocytes Absolute Auto 0.6 K/mm3 (0.1-0.6); Monocytes Percent Auto 6.2 % (2.6-8.5); Neutrophils Absolute Auto 6.5 K/mm3 (1.3-6.7); Neutrophils Percent Auto 70.4 % (45.5-73.1); Platelet Count Result 299 k/mm3 (150-375); Red Blood Count 4.89 M/mm3 (4.2-5.4); Red Cell Distribution Width 14.6 % (11.5-14.5); White Blood Count 9.3 K/mm3 (4.5-10.0)
[2023-02-24 14:58] LABS: Prothrombin Time 12.7 Seconds (11.1-14.7)
[2023-02-24 14:59] LABS: Partial Thromboplastin Time 32.2 SECONDS (22.3-36.8)
[2023-02-24 15:02] LABS: Alanine Aminotransferase 28 U/L (6-35); Albumin Level 4.6 g/dL (3.5-5.1); Alkaline Phosphatase 157 U/L (38-126); Anion Gap 10 mmol/L (8-16); Aspartate Amino Transferase 25 U/L (14-36); Bilirubin,Total 0.6 mg/dL (0.2-1.3); Blood Urea Nitrogen 10 mg/dL (7-17); Carbon Dioxide 24 mmol/L (22-30); Chloride 104 mmol/L (98-107); Estimated CRCL calculation 67 ml/min; Estimated Glomerular Filt Rate > 60; Glucose 127 mg/dL (65-110); Lipase 44 U/L (23-300); Potassium 4.2 mmol/L (3.4-5.0); Sodium 138 mmol/L (137-145)
[2023-02-24 15:13] LABS: Troponin I < 0.012 ng/mL (0.000-0.034)
[2023-02-24 17:56] VITALS: BP 164/92; PULSE 86; RESP 14; O2SAT 97; O2SAT 99
[2023-02-24 18:13] LABS: Troponin I < 0.012 ng/mL (0.000-0.034)
[2023-02-24 18:33] VITALS: BP 135/68; PULSE 90; RESP 20; O2SAT 94
[2023-02-24 18:46] VITALS: BP 131/79; PULSE 88; RESP 13; O2SAT 94
--- NOTE | 2023-02-24 19:26 | ED.GENADULT ---
HPI - General Adult General Chief complaint: Chest Pain Stated complaint: cp, sob Time Seen by Provider: 02/24/23 17:43 History of Present Illness HPI narrative: 62-year-old female presented to the emergency department for evaluation of intermittent shortness of breath and epigastric pain. Patient states she does have history of asthma and felt that she was having increased shortness of breath last night. Patient did use her albuterol and did feel improved. Patient states that she did have some difficulty sleeping last night. Patient does have history of high cholesterol, hypokalemia, asthma, anxiety. Related Data Home Medications Medication Instructions Recorded Confirmed albuterol sulfate 2.5 mg/3 mL 2.5 mg inhalation QID 12/15/19 02/18/23 (0.083 %) solution for nebulization aspirin 81 mg tablet,delayed 81 mg PO DAILY 12/15/19 02/18/23 release (Adult Low Dose Aspirin) biotin 5 mg capsule 5 mg PO DAILY 12/15/19 02/18/23 diphenoxylate-atropine 2.5 2 tablet PO QID PRN Abdominal Pain 12/15/19 02/18/23 mg-0.025 mg tablet (Lomotil) galcanezumab-gnlm 120 mg/mL 120 mg subcut MONTHLY 12/15/19 02/18/23 subcutaneous pen injector (Emgality Pen) glatiramer 20 mg/mL subcutaneous 20 mg subcut DAILY 12/15/19 02/18/23 syringe (Copaxone) mecobalamin (vitamin B12) 5,000 5,000 mcg PO .QD 12/15/19 02/18/23 mcg disintegrating tablet multivitamin (Multiple Vitamins 1 tablet PO DAILY 12/15/19 02/18/23 tablet) zinc 50 mg tablet 50 mg PO DAILY 12/15/19 02/18/23 glucosamine-chondroitin 500 mg-400 1 cap PO TID 08/27/20 02/18/23 mg capsule simethicone 125 mg chewable tablet 250 mg PO TID 08/27/20 02/18/23 (Gas-X Extra Strength) calcium carbonate 200 mg calcium 400 mg PO TID PRN Abdominal Pain 03/05/21 02/18/23 (500 mg) chewable tablet (Tums) cranberry 400 mg capsule 400 mg PO TID 03/05/21 02/18/23 baclofen 10 mg tablet 30 mg PO QID muscle spasm 08/07/21 02/18/23 desipramine 10 mg tablet 15 mg PO QPM 08/07/21 02/18/23 fluticasone propionate 50 1 spray intranasal DAILY 05/19/22 02/18/23 mcg/actuation nasal spray,suspension (Flonase Allergy Relief) tiotropium 2.5 mcg-olodaterol 2.5 1 puff inhalation BID 07/14/22 02/18/23 mcg/actuation mist for inhalation (Stiolto Respimat) Lactobacills gasseri-Bifidobac 1 cap PO DAILY 07/28/22 02/18/23 bifidum,longum 1.5 billion cell capsule (VII NETWORK) Tylenol#3 1 - 2 tab-cap PO Q4-6H PRN 07/28/22 02/18/23 Migraine Headache acetaminophen 500 mg tablet 500 mg PO Q6H PRN Pain 07/28/22 02/18/23 (Tylenol Extra Strength) chlorpheniramine-pseudoephedrine 4 0.5 tablet PO Q4-6H PRN Allergy 07/28/22 02/18/23 mg-60 mg tablet Symptoms famotidine 40 mg tablet (Pepcid) 40 mg PO DAILY PRN Acid Reflux 07/28/22 02/18/23 fluoride (sodium) 1.1 % dental gel 1 applic dental HS 07/28/22 02/18/23 (PreviDent) meclizine 12.5 mg tablet 12.5 mg PO Q6H PRN Dizziness 07/28/22 02/18/23 menthol 5.8 mg lozenges ([place] 5.8 mg mucous membrane Q2-4H PRN 07/28/22 02/18/23 Cough Drops) Sore Throat mupirocin 2 % topical ointment 1 applic topical DAILY PRN Skin 07/28/22 02/18/23 Irritation phenylpropanolamine-GG 25 mg-200 2 tablet PO TID PRN Cold Symptoms 07/28/22 02/18/23 mg tablet sodium bicarbonate-sodium 1 ea TID 07/28/22 02/18/23 chloride-neti pot nasal rinse with packet (NeilMed NasaFlo packet with sinus rinse device) omega 6-aik-bnp-fish oil 1,000 mg 3 cap PO DAILY 08/19/22 02/18/23 (120 mg-180 mg) capsule (Fish Oil) methylphenidate HCl 20 mg 20 mg PO QAM 02/18/23 02/18/23 tablet,extended release Allergies Allergy/AdvReac Type Severity Reaction Status Date / Time adhesive tape Allergy Mild Unknown Verified 02/18/23 10:00 amphetamine [From Adderall] Allergy Mild Other Verified 02/18/23 10:00 armodafinil [From Nuvigil] Allergy Mild Unknown Verified 02/18/23 10:00 aspartame Allergy Mild Unknown Verified 02/24/23 18:02 [From Nutrasweet Aspartame] cefuro
[2023-02-24] MEDS: MAG HYDROX/AL HYDROX/SIMETH 30 ML UDC PO (20:15)
[2023-02-24] MEDS: LORazepam (*CRX) 1 MG TABLET PO (20:39)
[2023-02-24] MEDS: ACETAMINOPHEN 500 MG TABLET 1000 MG PO (21:15)
[2023-02-24 21:17] VITALS: BP 133/93; PULSE 94; RESP 19; O2SAT 95
== END 2023-02-24 21:54 | disposition home or self-care (01) ==
PROVIDERS: Emergency Provider Emergency Medicine; PCP Physician Assistant
DX: R10.13 Epigastric pain (principal); R06.02 Shortness of breath; F41.9 Anxiety disorder, unspecified; J45.909 Unspecified asthma, uncomplicated; I10 Essential (primary) hypertension; E78.00 Pure hypercholesterolemia, unspecified; E03.9 Hypothyroidism, unspecified; G35 Multiple sclerosis; Z87.891 Personal history of nicotine dependence; Z79.51 Long term (current) use of inhaled steroids
CPT/HCPCS: 36415; 71046; 80053; 83690; 84484; 85025; 85610; 85730; 93005; 99284; A9270

== ENCOUNTER 2023-03-17 07:48 | Outpatient (CLI) | payer BC, SELFPAY ==
--- NOTE | ~2023-03-17 | NM_ITS ---
EXAMINATION: NM juanita stress w perfusion DATE: 03/17/2023 12:05 INDICATION: Chest pain TECHNIQUE: Rest images were obtained following intravenous administration of 9.8 mCi Tc99m tetrofosmi n (Myoview). The patient was infused intravenously with Lexiscan (Regadenoson). Then, 30.8 mCi Tc99m tetrofosmin (Myoview) was administered intravenously, and stress images were obtained. Data was recon structed into short axis and horizontal and vertical long axis SPECT images. Gated SPECT images were also obtained. COMPARISON: None. FINDINGS: There is no definite reversible or fixed perfusion abnormality to suggest ischemia or infar ction. There is normal left ventricular chamber size, wall motion and ejection fraction. Left ventr icular ejection fraction measures >70%. IMPRESSION: 1. Normal myocardial perfusion at rest and during stress. 2. Left ventricular ejection fraction measuring >70%. Reviewed, dictated and finalized at location A.
--- NOTE | 2023-03-17 07:50 | EST_ITS ---
Patient Info Name: Eugenia Pinzon Age: 62 years : 1960 Gender: Female Ht: 63 in Wt: 235 lbs BSA: 2.23 m2 HR: 74 bpm BP: 151 / 92 mmHg Heart Rhythm: Sinus Rhythm Exam Date: 03/17/2023 10:28 AM Exam Location: [facility] Stress Patient Status: Outpatient Admit Date: 03/17/2023 Staff Ordering Physician: Cole Freedman DO Attending Provider: Cole Freedman DO Exercise Technologist: Leilani Rodriguez RDCS Exercise Physician: Cole Freedman DO Exam Type: CA stress juanita w NM Study Info Indications R07.9 - Chest pain, unspecified A regadenoson stress test was performed. Summary 1. 1. Negative lexiscan stress test for ischemic ST changes by ECG criteria. 2. 2. Baseline hypertension. 3. 3. Nuclear scan to follow and will be reported separately. Please correlate with it. 4. 4. Patient informed of the above results. Protocol: Lexiscan Stress ECG Details Stage: REST Duration (min): 1 min : 7 sec HR (bpm): 76 SBP (mmHg): 151 DBP (mmHg): 92 Stage: REST Duration (min): 2 min : 21 sec HR (bpm): 77 SBP (mmHg): 151 DBP (mmHg): 92 Stage: REST Duration (min): 10 min : 42 sec HR (bpm): 81 SBP (mmHg): 151 DBP (mmHg): 92 Stage: STAGE 1 Duration (min): 1 min : 0 sec HR (bpm): 106 SBP (mmHg): 151 DBP (mmHg): 54 Stage: RECOVERY Duration (min): 1 min : 0 sec HR (bpm): 105 SBP (mmHg): 151 DBP (mmHg): 54 Stage: RECOVERY Duration (min): 2 min : 0 sec HR (bpm): 103 SBP (mmHg): 151 DBP (mmHg): 54 Stage: RECOVERY Duration (min): 3 min : 0 sec HR (bpm): 96 SBP (mmHg): 152 DBP (mmHg): 61 Stage: RECOVERY Duration (min): 3 min : 3 sec HR (bpm): 95 SBP (mmHg): 152 DBP (mmHg): 61 Rest HR: 81 bpm Peak HR: 106 bpm Rest Sys BP: 151 mmHg Peak Sys BP: 152 mmHg Max Pred HR: 156 bpm % Max Pred HR: 68 % Target HR: 133 bpm Max RPP: 16,112 bpm*mmHg Termination Reason: Completed protocol Cardiac Symptoms: Shortness of breath Total Time: 1 min : 0 sec Rest Payton BP: 92 mmHg Peak [place] BP: 61 mmHg Total Dose: 0.4 mg Resting ECG Sinus rhythm, IRBBB. Stress ECG No ST changes. Arrhythmias None. Report Signatures
--- NOTE | 2023-03-17 07:50 | ECHO_ITS ---
Patient Info Name: Eugenia Pinzon Age: 62 years : 1960 Gender: Female Ht: 63 in Wt: 235 lbs BSA: 2.23 m2 HR: 90 bpm BP: 179 / 104 mmHg Technical Quality: Fair Exam Date: 03/17/2023 8:01 AM Exam Location: [facility] Patient Status: Outpatient Admit Date: 03/17/2023 Staff Ordering Physician: Cole Freedman DO Airplane Cover Maker: Veronica Lawson RDCS Attending Provider: Cole Freedman DO Referring Physician: Tano ROBINS; Exam Type: CA echo dop color flow w con Study Info Indications R07.9 - Chest pain, unspecified Complete two-dimensional, color flow and Doppler transthoracic echocardiogram is performed with contrast to opacify the left ventricle and to improve the deliniation of the left ventricle endocardial borders. Contrast/Agitated Saline Contrast/Ag. Saline: Definity Amount: 4.00 ml Administered By: Veronica Lawson RDCS New IV Access: Outer Forearm and Right Site Condition: Site dressing applied Summary 1. Definity contrast administered improved wall motion interpretation. 2. Left ventricular chamber dimension is normal. 3. Left ventricular systolic function is normal, estimated at 60-65%. 4. The left ventricular diastolic function is grade I diastolic dysfunction. 5. E/e' 9 is minimally elevated. 6. Left atrial chamber dimension is mildly enlarged. 7. No pulmonary hypertension, estimated pulmonary arterial systolic pressure is 22 mmHg. 8. Dilated inferior vena cava with >50% collapse upon inspiration consistent with elevated right atrial pressure, 10 mmHg. Left Ventricle E/e' 9 is minimally elevated. Definity contrast administered improved wall motion interpretation. Left ventricular chamber dimension is normal. Left ventricular systolic function is normal, estimated at 60-65%. The left ventricular diastolic function is grade I diastolic dysfunction. Right Ventricle Right ventricular chamber dimension is normal. Right ventricular systolic function is normal. Left Atria Left atrial chamber dimension is mildly enlarged. Right Atria Right atrial chamber dimension is normal. Aortic Valve The aortic valve is trileaflet. There is no aortic valve stenosis. There is no aortic valve regurgitation. Pulmonic Valve There is no pulmonic regurgitation. Mitral Valve There is no mitral valve stenosis. There is no mitral valve regurgitation. Tricuspid Valve There is no tricuspid valve regurgitation. No pulmonary hypertension, estimated pulmonary arterial systolic pressure is 22 mmHg. Pericardium/Pleural There is no pericardial effusion. Inferior Vena Cava Dilated inferior vena cava with >50% collapse upon inspiration consistent with elevated right atrial pressure, 10 mmHg. Aorta The aortic root size at the sinus of Valsalva is normal. Left Ventricular Outflow Tract Name Value Normal LVOT 2D LVOT Diameter 1.84 cm LVOT Doppler LVOT Peak Gradient 5 mmHg LVOT Mean Gradient 3 mmHg LVOT VTI 25.21 cm LVOT VTI/AV VTI Ratio
[2023-03-17] MEDS: PERFLUTREN LIPID MICROSPHERES 1.5 ML VIAL DILUTED TO 10 ML TOTAL VOLUME IV PUSH (08:50)
== END 2023-03-17 07:49 | disposition home or self-care (01) ==
LOC: ANHCARD 07:49
PROVIDERS: PCP Physician Assistant; Visit Provider Internal Medicine Cardiovascular Disease
DX: R93.1 Abnormal findings on diagnostic imaging of heart and coronary circulation (principal); I10 Essential (primary) hypertension; R07.9 Chest pain, unspecified
CPT/HCPCS: 78452; 93017; A9502; C8929; J2785; Q9957

== ENCOUNTER 2023-03-26 12:30 | Outpatient (RCR) | payer BC, SELFPAY ==
--- NOTE | 2023-02-19 11:18 | PTOPEVAL1 ---
Assessment and note entered by Isai Moss, PT Evaluation Information Assessment Status Evaluation Diagnosis R shoulder pain Onset a couple of years ago Subjective Information Patient reports that she has R shoulder pain that radiates pain into the the R biceps, down the scapula, and into the neck, along with numbness and tingling in the R hand. The patient reports she originally though it was from her playing her video game too much, but she states that she stopped for a while and she still has pain. She is L handed and really notices the pain with hanging up clothes. She did go to a chiropractor prior to seeing physical therapy. Has an extensive past medical history. Reported Pain Level Pain Score 7: Self Report Additional Pain Score Comments Reports this is a day it is not hurting much Assessment PT Clinical Summary Eugenia is a 62 year old female coming in with the R shoulder pain. She has decreased range of motion of R shoulder flexion and abduction along with decreased cervical rotation. Tenderness and weakness around the R scapula. Physical therapy will work on improving posture and cervical/ shoulder range of motion along with scapular strengthening. Modalities and manual therapy as needed for pain control. Plan of Care Interventions Electrical Stimulation,Gait Training,Hot Pack/Cold Pack,Manual Therapy,Neuro Re-education,Patient/ Caregiver Education,Therapeutic Activities, Therapeutic Exercise,Ultrasound Other Interventions taping PT Services Indicated Yes Treatment Frequency and 1-2x/wk for 4 weeks Duration These treatments will address the objective and functional deficits as defined above. The patient will be advanced safely and appropriately in order for the patient to progress towards his/her prior level of function. Additional exercises will be introduced and as well as a comprehensive home exercise program upon discharge, if needed, ?to ensure carryover of functional gains achieved in the clinic. This treatment plan has been reviewed and agreement upon by the patient.
--- NOTE | 2023-03-26 15:25 | PTOPDC ---
Assessment and note entered by Isai Moss, PT Evaluation Information Assessment Status Discharge Diagnosis muscle spasm of back Onset a couple of years ago Subjective Information Patient reports the R shoulder is feeling much better, going from a 20/10 pain to just a 7-8/10 pain. The patient still has trouble with hanging her laundry, but has not been playing her game as much on her phone so that has helped her minimize pain. Reported Pain Level Pain Score 8: Self Report Assessment PT Clinical Summary Eugenia is a 62 year old female coming into the clinic with a diagnosis of R shoulder pain. Patient self reports a decrease in pain from 20/10 to 7-8/10, otherwise, no noticeable change in the R shoulder or neck. Discharged at the time with HEP is okay with patient. Plan of Care PT Services Indicated No
== END 2023-03-27 13:38 | disposition home or self-care (01) ==
LOC: ANHPT 12:30
PROVIDERS: PCP Physician Assistant; Visit Provider Physician Assistant
DX: M62.830 Muscle spasm of back (principal)
CPT/HCPCS: 97110; 97140; 97161

== ENCOUNTER 2023-06-09 14:43 | Emergency (ER) | payer BC, SELFPAY ==
[2023-06-09 14:56] VITALS: BP 141/82; PULSE 85; RESP 18; TEMP 36.6; O2SAT 96
--- NOTE | 2023-06-09 15:00 | ED.SKABFB ---
HPI - Skin/Abscess/Foreign Bdy General Chief complaint: Extremity Injury, Upper Stated complaint: SWOLLEN FINGER Time Seen by Provider: 06/09/23 15:00 Source: patient Mode of arrival: ambulatory Limitations: no limitations History of Present Illness HPI narrative: Eugenia is a 62-year-old female patient presenting to the clinic today with complaints of right index finger swelling pain x 5 days. She denies any fever or chills. No injury Related Data Home Medications Medication Instructions Recorded Confirmed albuterol sulfate 2.5 mg/3 mL 2.5 mg inhalation QID 12/15/19 04/14/23 (0.083 %) solution for nebulization aspirin 81 mg tablet,delayed 81 mg PO DAILY 12/15/19 04/14/23 release (Adult Low Dose Aspirin) biotin 5 mg capsule 5 mg PO DAILY 12/15/19 04/14/23 diphenoxylate-atropine 2.5 2 tablet PO QID PRN Abdominal Pain 12/15/19 04/14/23 mg-0.025 mg tablet (Lomotil) galcanezumab-gnlm 120 mg/mL 120 mg subcut MONTHLY 12/15/19 04/14/23 subcutaneous pen injector (Emgality Pen) glatiramer 20 mg/mL subcutaneous 20 mg subcut DAILY 12/15/19 04/14/23 syringe (Copaxone) mecobalamin (vitamin B12) 5,000 5,000 mcg PO .QD 12/15/19 04/14/23 mcg disintegrating tablet multivitamin (Multiple Vitamins 1 tablet PO DAILY 12/15/19 04/14/23 tablet) zinc 50 mg tablet 50 mg PO DAILY 12/15/19 04/14/23 glucosamine-chondroitin 500 mg-400 1 cap PO TID 08/27/20 04/14/23 mg capsule simethicone 125 mg chewable tablet 250 mg PO TID 08/27/20 04/14/23 (Gas-X Extra Strength) calcium carbonate 200 mg calcium 400 mg PO TID PRN Abdominal Pain 03/05/21 04/14/23 (500 mg) chewable tablet (Tums) cranberry 400 mg capsule 400 mg PO TID 03/05/21 04/14/23 baclofen 10 mg tablet 30 mg PO QID muscle spasm 08/07/21 04/14/23 desipramine 10 mg tablet 15 mg PO QPM 08/07/21 04/14/23 fluticasone propionate 50 1 spray intranasal DAILY 05/19/22 04/14/23 mcg/actuation nasal spray,suspension (Flonase Allergy Relief) tiotropium 2.5 mcg-olodaterol 2.5 1 puff inhalation BID 07/14/22 04/14/23 mcg/actuation mist for inhalation (Stiolto Respimat) Lactobacills gasseri-Bifidobac 1 cap PO DAILY 07/28/22 04/14/23 bifidum,longum 1.5 billion cell capsule ([employer]) Tylenol#3 1 - 2 tab-cap PO Q4-6H PRN 07/28/22 04/14/23 Migraine Headache acetaminophen 500 mg tablet 500 mg PO Q6H PRN Pain 07/28/22 04/14/23 (Tylenol Extra Strength) chlorpheniramine-pseudoephedrine 4 0.5 tablet PO Q4-6H PRN Allergy 07/28/22 04/14/23 mg-60 mg tablet Symptoms famotidine 40 mg tablet (Pepcid) 40 mg PO DAILY PRN Acid Reflux 07/28/22 04/14/23 fluoride (sodium) 1.1 % dental gel 1 applic dental HS 07/28/22 04/14/23 (PreviDent) meclizine 12.5 mg tablet 12.5 mg PO Q6H PRN Dizziness 07/28/22 04/14/23 menthol 5.8 mg lozenges ([place] 5.8 mg mucous membrane Q2-4H PRN 07/28/22 04/14/23 Cough Drops) Sore Throat mupirocin 2 % topical ointment 1 applic topical DAILY PRN Skin 07/28/22 04/14/23 Irritation phenylpropanolamine-GG 25 mg-200 2 tablet PO TID PRN Cold Symptoms 07/28/22 04/14/23 mg tablet sodium bicarbonate-sodium 1 ea TID 07/28/22 04/14/23 chloride-neti pot nasal rinse with packet (NeilMed NasaFlo packet with sinus rinse device) omega 7-mzl-jpe-fish oil 1,000 mg 3 cap PO DAILY 08/19/22 04/14/23 (120 mg-180 mg) capsule (Fish Oil) methylphenidate HCl 20 mg 20 mg PO QAM 02/18/23 04/14/23 tablet,extended release Allergies Allergy/AdvReac Type Severity Reaction Status Date / Time adhesive tape Allergy Mild Unknown Verified 06/09/23 14:56 amphetamine [From Adderall] Allergy Mild Other Verified 06/09/23 14:56 armodafinil [From Nuvigil] Allergy Mild Unknown Verified 06/09/23 14:56 aspartame Allergy Mild Unknown Verified 06/09/23 14:56 [From Nutrasweet Aspartame] cefuroxime [From Ceftin] Allergy Mild Unknown Verified 06/09/23 14:56 dextroamphetamine Allergy Mild Other Verified 06/09/23 14:56 [From Adderall] gabapentin [From Neuronti
== END 2023-06-09 15:11 | disposition home or self-care (01) ==
PROVIDERS: Emergency Provider Nurse Practitioner Family; PCP Physician Assistant
DX: L03.011 Cellulitis of right finger (principal); Z79.82 Long term (current) use of aspirin; I10 Essential (primary) hypertension; E03.9 Hypothyroidism, unspecified; J45.909 Unspecified asthma, uncomplicated; G35 Multiple sclerosis; Z87.891 Personal history of nicotine dependence
CPT/HCPCS: 99213; G0463

== ENCOUNTER 2023-07-20 17:38 | Emergency (ER) | payer BC, SELFPAY ==
--- NOTE | 2023-07-20 17:50 | ED.GENADULT ---
HPI - General Adult General Chief complaint: Skin/Abscess/Foreign Body Stated complaint: Infection in hands;Numbness in left arm Time Seen by Provider: 07/20/23 18:05 Source: patient, RN notes reviewed and old records reviewed Mode of arrival: ambulatory Limitations: no limitations History of Present Illness HPI narrative: 62-year-old female presents to the [facility] with concerns for distal 2nd finger right and left thumb infection. Patient was seen on June 09, 6 weeks ago, diagnosed with paronychia, was prescribed doxycycline and states it never got better. States that it even spread from the right 2nd finger to the distal end of the left thumb. No nail bed involvement. Skin is dry, mild erythema without increased warmth. Flaky skin noted in surrounding tissue. No drainage noted. No fluctuance noted. Patient also reports that the infection is in the folds of the outer ear, no erythema, fluctuance, changing and skin noted to the area. Patient is insisting that she just needs an antibiotic, discussed with patient in great detail, multiple times that due to her extensive allergies as well as extensive medical history that antibiotics may not always being answer this appears more like a dermatitis, insisted patient used the cream she was prescribed twice a day for 4 weeks. Discussed with patient in great detail that she should follow-up for further testing and treatment with dermatology. Patient states that she could not get in with her primary that he will only see her once a year and that her MS doctor does not see her. Onset (ago): week(s) (6) Related Data Home Medications Medication Instructions Recorded Confirmed albuterol sulfate 2.5 mg/3 mL 2.5 mg inhalation QID 12/15/19 07/20/23 (0.083 %) solution for nebulization aspirin 81 mg tablet,delayed 81 mg PO DAILY 12/15/19 07/20/23 release (Adult Low Dose Aspirin) biotin 5 mg capsule 5 mg PO DAILY 12/15/19 07/20/23 diphenoxylate-atropine 2.5 2 tablet PO QID PRN Abdominal Pain 12/15/19 07/20/23 mg-0.025 mg tablet (Lomotil) galcanezumab-gnlm 120 mg/mL 120 mg subcut MONTHLY 12/15/19 07/20/23 subcutaneous pen injector (Emgality Pen) glatiramer 20 mg/mL subcutaneous 20 mg subcut DAILY 12/15/19 07/20/23 syringe (Copaxone) mecobalamin (vitamin B12) 5,000 5,000 mcg PO .QD 12/15/19 07/20/23 mcg disintegrating tablet multivitamin (Multiple Vitamins 1 tablet PO DAILY 12/15/19 07/20/23 tablet) zinc 50 mg tablet 50 mg PO DAILY 12/15/19 07/20/23 glucosamine-chondroitin 500 mg-400 1 cap PO TID 08/27/20 07/20/23 mg capsule simethicone 125 mg chewable tablet 250 mg PO TID 08/27/20 07/20/23 (Gas-X Extra Strength) calcium carbonate 200 mg calcium 400 mg PO TID PRN Abdominal Pain 03/05/21 07/20/23 (500 mg) chewable tablet (Tums) cranberry 400 mg capsule 400 mg PO TID 03/05/21 07/20/23 baclofen 10 mg tablet 30 mg PO QID muscle spasm 08/07/21 07/20/23 desipramine 10 mg tablet 15 mg PO QPM 08/07/21 07/20/23 fluticasone propionate 50 1 spray intranasal DAILY 05/19/22 07/20/23 mcg/actuation nasal spray,suspension (Flonase Allergy Relief) Lactobacills gasseri-Bifidobac 1 cap PO DAILY 07/28/22 07/20/23 bifidum,longum 1.5 billion cell capsule ([employer]) Tylenol#3 1 - 2 tab-cap PO Q4-6H PRN 07/28/22 07/20/23 Migraine Headache acetaminophen 500 mg tablet 500 mg PO Q6H PRN Pain 07/28/22 07/20/23 (Tylenol Extra Strength) famotidine 40 mg tablet (Pepcid) 40 mg PO DAILY PRN Acid Reflux 07/28/22 07/20/23 fluoride (sodium) 1.1 % dental gel 1 applic dental HS 07/28/22 07/20/23 (PreviDent) menthol 5.8 mg lozenges ([place] 5.8 mg mucous membrane Q2-4H PRN 07/28/22 07/20/23 Cough Drops) Sore Throat mupirocin 2 % topical ointment 1 applic topical DAILY PRN Skin 07/28/22 07/20/23 Irritation phenylpropanolamine-GG 25 mg-200 2 tablet PO TID PRN Cold Symptoms 07/28/22 07/20/23 mg tablet sodium bicarbonate-sodium 1 ea TID 07/28/22 07/20/23 chloride-neti
[2023-07-20 17:55] VITALS: BP 142/90; PULSE 95; RESP 16; TEMP 36.8; O2SAT 97
== END 2023-07-20 18:40 | disposition home or self-care (01) ==
PROVIDERS: Emergency Provider Nurse Practitioner; PCP Physician Assistant
DX: L30.9 Dermatitis, unspecified (principal); Z87.891 Personal history of nicotine dependence; E78.00 Pure hypercholesterolemia, unspecified; I10 Essential (primary) hypertension; E03.9 Hypothyroidism, unspecified; G35 Multiple sclerosis; Z90.13 Acquired absence of bilateral breasts and nipples; Z79.82 Long term (current) use of aspirin
CPT/HCPCS: 99213; G0463

== ENCOUNTER 2023-07-30 08:48 | Outpatient (CLI) | payer BC, SELFPAY ==
--- NOTE | ~2023-07-30 | XR_ITS ---
Clinical Indication: Shortness of breath PA and lateral views of the chest: Comparison: 02/24/2023 Findings: Stable linear scarring at the right midlung noted. The lungs are otherwise clear, without e vidence of focal consolidation or pleural effusion. Cardiomediastinal silhouette is within normal li mits. Bones and soft tissues are unremarkable. Impression: No acute abnormality. Stable linear scarring, as above. Reviewed, dictated and finalized at location M. Impression: No acute abnormality. Stable linear scarring, as above.
== END 2023-07-30 08:49 | disposition home or self-care (01) ==
LOC: ANHIMG 08:52
PROVIDERS: PCP Physician Assistant; Visit Provider Physician Assistant
DX: R06.02 Shortness of breath (principal)
CPT/HCPCS: 71046

== ENCOUNTER → 2023-08-18 10:06 | Outpatient (CLI) | payer BC, SELFPAY ==
--- NOTE | ~2023-08-18 | US_ITS ---
Thyroid ultrasound. Clinical History: Dysphagia COMPARISON: 03/02/2019 Findings: Real-time sonography of the thyroid gland was performed. The right lobe measures 4.5 x 1.3 x 1.8 cm. The left lobe measures 3.8 x 0.7 x 1.3 cm. The isthmus is 4 mm in AP diameter. There is a 6 mm hypoechoic, possibly cystic nodule at the left midpole. Impression: 6 mm hypoechoic, possibly cystic nodule, at the left midpole. This is essentially stable from prior e xam. Reviewed, dictated and finalized at location M. Impression: 6 mm hypoechoic, possibly cystic nodule, at the left midpole. This is essential ly stable from prior exam.
== END ==
PROVIDERS: PCP Physician Assistant; Visit Provider Physician Assistant
DX: R13.10 Dysphagia, unspecified (principal); M79.672 Pain in left foot
CPT/HCPCS: 73630; 76536

== ENCOUNTER 2023-08-20 10:45 | Outpatient (CLI) | payer BC, SELFPAY ==
--- NOTE | ~2023-08-20 | XR_ITS ---
EXAMINATION: XR chest 2V DATE: 08/20/2023 11:11 INDICATION: Shortness of breath TECHNIQUE: PA and lateral views of the chest are obtained. COMPARISON: 07/30/2023 FINDINGS: The lungs are free of acute opacities. There are chronic areas of scarring or atelectasis i n the mid and lower lung zones. No pleural effusion or pneumothorax. The cardiomediastinal silhouette is normal. There is moderate thoracic spondylosis. IMPRESSION: 1. No acute cardiopulmonary abnormality. Reviewed, dictated and finalized at location L.
== END 2023-08-20 10:46 | disposition home or self-care (01) ==
PROVIDERS: PCP Physician Assistant; Visit Provider Nurse Practitioner Family
DX: R06.09 Other forms of dyspnea (principal); R05.9 Cough, unspecified
CPT/HCPCS: 71046

== ENCOUNTER 2023-09-21 17:05 | Outpatient (CLI) | payer MEDICARE, BC, SELFPAY ==
--- NOTE | ~2023-09-21 | XR_ITS ---
EXAMINATION: XR chest 2V Exam Date/Time: 09/21/2023 17:25 CDT HISTORY: COUGH, SOB, HX ASTHMA, COPD Comparison: 08/20/2023. RESULT: Lines, tubes, and devices: None. Lungs and pleura: No focal consolidation pneumothorax or pleural effusion. Senescent change. Bilater al areas of scar/atelectasis. Cardiomediastinal silhouette: Stable. Other: No acute osseous or upper abdominal finding. IMPRESSION: No acute cardiopulmonary process. Reviewed, dictated and finalized at location K.
== END 2023-09-21 17:06 | disposition home or self-care (01) ==
LOC: ANHIMG 17:11
PROVIDERS: PCP Physician Assistant; Visit Provider Allergy & Immunology
DX: R05.9 Cough, unspecified (principal)
CPT/HCPCS: 71046

== ENCOUNTER 2023-09-23 13:25 | Emergency (ER) | payer MEDICARE, BC, SELFPAY ==
--- NOTE | 2023-09-23 13:33 | ED.DENTAL ---
HPI - Dental/Oral General Chief complaint: Dental/Oral Stated complaint: Thrush and Throat Irritation Source: patient and RN notes reviewed History of Present Illness HPI Narrative: 63 yo F presents to urgent care witih complaints of thrush. Patient states she 1st noticed the discomfort in her mouth 2 days. Patient was recently diagnosed with bronchitis after having a negative x-ray and placed on a steroid pack. Patient was also recently prescribed 1 Diflucan pill which she states is not enough and she needs 2 weeks worth. Patient states she was instructed to be seen urgent care. Related Data Home Medications Medication Instructions Recorded Confirmed albuterol sulfate 2.5 mg/3 mL 2.5 mg inhalation QID 12/15/19 09/23/23 (0.083 %) solution for nebulization aspirin 81 mg tablet,delayed 81 mg PO DAILY 12/15/19 09/23/23 release (Adult Low Dose Aspirin) biotin 5 mg capsule 5 mg PO DAILY 12/15/19 09/23/23 diphenoxylate-atropine 2.5 2 tablet PO QID PRN Abdominal Pain 12/15/19 09/23/23 mg-0.025 mg tablet (Lomotil) galcanezumab-gnlm 120 mg/mL 120 mg subcut MONTHLY 12/15/19 09/23/23 subcutaneous pen injector (Emgality Pen) glatiramer 20 mg/mL subcutaneous 20 mg subcut DAILY 12/15/19 09/23/23 syringe (Copaxone) mecobalamin (vitamin B12) 5,000 5,000 mcg PO .QD 12/15/19 09/23/23 mcg disintegrating tablet multivitamin (Multiple Vitamins 1 tablet PO DAILY 12/15/19 09/23/23 tablet) zinc 50 mg tablet 50 mg PO DAILY 12/15/19 09/23/23 glucosamine-chondroitin 500 mg-400 1 cap PO TID 08/27/20 09/23/23 mg capsule simethicone 125 mg chewable tablet 250 mg PO TID 08/27/20 09/23/23 (Gas-X Extra Strength) calcium carbonate 200 mg calcium 400 mg PO TID PRN Abdominal Pain 03/05/21 09/23/23 (500 mg) chewable tablet (Tums) cranberry 400 mg capsule 400 mg PO TID 03/05/21 09/23/23 baclofen 10 mg tablet 30 mg PO QID muscle spasm 08/07/21 09/23/23 desipramine 10 mg tablet 15 mg PO QPM 08/07/21 09/23/23 fluticasone propionate 50 1 spray intranasal DAILY 05/19/22 09/23/23 mcg/actuation nasal spray,suspension (Flonase Allergy Relief) Lactobacills gasseri-Bifidobac 1 cap PO DAILY 07/28/22 09/23/23 bifidum,longum 1.5 billion cell capsule ([employer]) Tylenol#3 1 - 2 tab-cap PO Q4-6H PRN 07/28/22 09/01/23 Migraine Headache acetaminophen 500 mg tablet 500 mg PO Q6H PRN Pain 07/28/22 09/23/23 (Tylenol Extra Strength) fluoride (sodium) 1.1 % dental gel 1 applic dental HS 07/28/22 09/23/23 (PreviDent) menthol 5.8 mg lozenges ([place] 5.8 mg mucous membrane Q2-4H PRN 07/28/22 09/23/23 Cough Drops) Sore Throat sodium bicarbonate-sodium 1 ea TID 07/28/22 09/23/23 chloride-neti pot nasal rinse with packet (NeilMed NasaFlo packet with sinus rinse device) omega 2-rho-lhm-fish oil 1,000 mg 3 cap PO DAILY 08/19/22 09/23/23 (120 mg-180 mg) capsule (Fish Oil) tiotropium 2.5 mcg-olodaterol 2.5 1 puff inhalation BID 06/09/23 09/23/23 mcg/actuation mist for inhalation (Stiolto Respimat) exemestane 25 mg tablet 25 mg PO DAILY 07/27/23 09/23/23 fluconazole 150 mg tablet 150 mg PO ONCE 09/23/23 09/23/23 Allergies Allergy/AdvReac Type Severity Reaction Status Date / Time adhesive tape Allergy Mild Unknown Verified 09/01/23 11:21 amphetamine [From Adderall] Allergy Mild Other Verified 09/01/23 11:21 armodafinil [From Nuvigil] Allergy Mild Unknown Verified 09/01/23 11:21 aspartame Allergy Mild Unknown Verified 09/01/23 11:21 [From Nutrasweet Aspartame] cefuroxime [From Ceftin] Allergy Mild Unknown Verified 09/01/23 11:21 dextroamphetamine Allergy Mild Other Verified 09/01/23 11:21 [From Adderall] gabapentin [From Neurontin] Allergy Mild Unknown Verified 09/01/23 11:21 latex Allergy Mild Unknown Verified 09/01/23 11:21 liver extract Allergy Mild Other Verified 09/01/23 11:21 meperidine [From Demerol] Allergy Mild Unknown Verified 09/01/23 11:21 metoclopramide [From Reglan] Allergy Mild Unknown Veri
[2023-09-23 13:42] VITALS: BP 169/98; PULSE 78; RESP 16; TEMP 36.7; O2SAT 98
[2023-09-23 13:45] VITALS: BP 169/98; PULSE 78; RESP 16; TEMP 36.7; O2SAT 98
== END 2023-09-23 14:30 | disposition home or self-care (01) ==
PROVIDERS: Emergency Provider Nurse Practitioner Family; PCP Physician Assistant
DX: B37.0 Candidal stomatitis (principal); Z87.891 Personal history of nicotine dependence; J45.909 Unspecified asthma, uncomplicated; E78.00 Pure hypercholesterolemia, unspecified; I10 Essential (primary) hypertension; E03.9 Hypothyroidism, unspecified; G35 Multiple sclerosis; Z90.13 Acquired absence of bilateral breasts and nipples; F41.9 Anxiety disorder, unspecified; Z79.82 Long term (current) use of aspirin
CPT/HCPCS: 99213; G0463

== ENCOUNTER 2023-09-23 16:58 | Emergency (ER) | payer MEDICARE, BC, SELFPAY ==
--- NOTE | ~2023-09-23 | XR_ITS ---
EXAMINATION: XR chest 1V portable Exam Date/Time: 09/23/2023 19:50 CDT HISTORY: Difficulty swallowing Comparison: 09/21/2023. RESULT: Lines, tubes, and devices: None. Lungs and pleura: Low volumes with crowding. Bilateral scar/atelectasis. Cardiomediastinal silhouette: Stable. Other: No acute osseous or upper abdominal finding. IMPRESSION: No acute cardiopulmonary process. Reviewed, dictated and finalized at location K.
[2023-09-23 17:01] VITALS: BP 136/73; PULSE 97; RESP 20; TEMP 36.3; O2SAT 96
[2023-09-23 19:45] VITALS: PULSE 87; RESP 20
[2023-09-23] MEDS: ALBUTEROL SULFATE NEB 2.5 MG/3 ML INH INHALATION (19:45)
--- NOTE | 2023-09-23 19:45 | ED.GENADULT ---
HPI - General Adult General Chief complaint: Unspecified Stated complaint: feeling like choking Time Seen by Provider: 09/23/23 19:09 History of Present Illness HPI narrative: 63-year-old female with history of esophageal stricture presented the ED for evaluation of difficulty swallowing. Patient currently does have thrush and got medication called in today but has not yet picked up the medication. Patient states symptoms for her difficulty swallowing have been ongoing for the last 49 days but patient has not yet had follow-up with GI. Patient is handling her secretions and appears to be in no distress. Related Data Home Medications Medication Instructions Recorded Confirmed albuterol sulfate 2.5 mg/3 mL 2.5 mg inhalation QID 12/15/19 09/23/23 (0.083 %) solution for nebulization aspirin 81 mg tablet,delayed 81 mg PO DAILY 12/15/19 09/23/23 release (Adult Low Dose Aspirin) biotin 5 mg capsule 5 mg PO DAILY 12/15/19 09/23/23 diphenoxylate-atropine 2.5 2 tablet PO QID PRN Abdominal Pain 12/15/19 09/23/23 mg-0.025 mg tablet (Lomotil) galcanezumab-gnlm 120 mg/mL 120 mg subcut MONTHLY 12/15/19 09/23/23 subcutaneous pen injector (Emgality Pen) glatiramer 20 mg/mL subcutaneous 20 mg subcut DAILY 12/15/19 09/23/23 syringe (Copaxone) mecobalamin (vitamin B12) 5,000 5,000 mcg PO .QD 12/15/19 09/23/23 mcg disintegrating tablet multivitamin (Multiple Vitamins 1 tablet PO DAILY 12/15/19 09/23/23 tablet) zinc 50 mg tablet 50 mg PO DAILY 12/15/19 09/23/23 glucosamine-chondroitin 500 mg-400 1 cap PO TID 08/27/20 09/23/23 mg capsule simethicone 125 mg chewable tablet 250 mg PO TID 08/27/20 09/23/23 (Gas-X Extra Strength) calcium carbonate 200 mg calcium 400 mg PO TID PRN Abdominal Pain 03/05/21 09/23/23 (500 mg) chewable tablet (Tums) cranberry 400 mg capsule 400 mg PO TID 03/05/21 09/23/23 baclofen 10 mg tablet 30 mg PO QID muscle spasm 08/07/21 09/23/23 desipramine 10 mg tablet 15 mg PO QPM 08/07/21 09/23/23 fluticasone propionate 50 1 spray intranasal DAILY 05/19/22 09/23/23 mcg/actuation nasal spray,suspension (Flonase Allergy Relief) Lactobacills gasseri-Bifidobac 1 cap PO DAILY 07/28/22 09/23/23 bifidum,longum 1.5 billion cell capsule ([employer]raTympanic) Tylenol#3 1 - 2 tab-cap PO Q4-6H PRN 07/28/22 09/01/23 Migraine Headache acetaminophen 500 mg tablet 500 mg PO Q6H PRN Pain 07/28/22 09/23/23 (Tylenol Extra Strength) fluoride (sodium) 1.1 % dental gel 1 applic dental HS 07/28/22 09/23/23 (PreviDent) menthol 5.8 mg lozenges ([place] 5.8 mg mucous membrane Q2-4H PRN 07/28/22 09/23/23 Cough Drops) Sore Throat sodium bicarbonate-sodium 1 ea TID 07/28/22 09/23/23 chloride-neti pot nasal rinse with packet (NeilMed NasaFlo packet with sinus rinse device) omega 0-whd-qrg-fish oil 1,000 mg 3 cap PO DAILY 08/19/22 09/23/23 (120 mg-180 mg) capsule (Fish Oil) tiotropium 2.5 mcg-olodaterol 2.5 1 puff inhalation BID 06/09/23 09/23/23 mcg/actuation mist for inhalation (Stiolto Respimat) exemestane 25 mg tablet 25 mg PO DAILY 07/27/23 09/23/23 fluconazole 150 mg tablet 150 mg PO ONCE 09/23/23 09/23/23 Allergies Allergy/AdvReac Type Severity Reaction Status Date / Time adhesive tape Allergy Mild Unknown Verified 09/01/23 11:21 amphetamine [From Adderall] Allergy Mild Other Verified 09/01/23 11:21 armodafinil [From Nuvigil] Allergy Mild Unknown Verified 09/01/23 11:21 aspartame Allergy Mild Unknown Verified 09/01/23 11:21 [From Nutrasweet Aspartame] cefuroxime [From Ceftin] Allergy Mild Unknown Verified 09/01/23 11:21 dextroamphetamine Allergy Mild Other Verified 09/01/23 11:21 [From Adderall] gabapentin [From Neurontin] Allergy Mild Unknown Verified 09/01/23 11:21 latex Allergy Mild Unknown Verified 09/01/23 11:21 liver extract Allergy Mild Other Verified 09/01/23 11:21 meperidine [From Demerol] Allergy Mild Unknown Verified 09/01/23 11:21 metoclopramide [From Reglan] All
[2023-09-23 19:57] VITALS: O2SAT 96
[2023-09-23 20:00] VITALS: PULSE 90; RESP 20
--- NOTE | 2023-09-23 20:37 | PC.NURSE ---
When this RN went to pt room to give discharge instructions pt become agitated. Pt stated to this RN you people did nothing for me and Im miserable this RN asked pt if she would like to speak with provider again, pt stated no, no one here cares about me. Im going to go home and choke and . This RN educated pt on her Thrush diagnosis and explained that there was no clinical evidence that she is currently choking. Pt told this RN multiple times to shut up get out of my way you know nothing .
[2023-09-23 20:43] VITALS: BP 140/83; PULSE 97; RESP 15; TEMP 37.1; O2SAT 99
== END 2023-09-23 20:48 | disposition home or self-care (01) ==
PROVIDERS: Emergency Provider Emergency Medicine; PCP Physician Assistant
DX: B37.81 Candidal esophagitis (principal); R13.10 Dysphagia, unspecified; J45.909 Unspecified asthma, uncomplicated; I10 Essential (primary) hypertension; E78.00 Pure hypercholesterolemia, unspecified; E03.9 Hypothyroidism, unspecified; G35 Multiple sclerosis; Z79.82 Long term (current) use of aspirin; Z90.13 Acquired absence of bilateral breasts and nipples; Z90.710 Acquired absence of both cervix and uterus; Z87.891 Personal history of nicotine dependence
CPT/HCPCS: 71045; 94640; 99283

== ENCOUNTER 2023-10-02 11:58 | Emergency (ER) | payer MEDICARE, BC, SELFPAY ==
--- NOTE | ~2023-10-02 | XR_ITS ---
EXAMINATION: XR chest 2V DATE: 10/02/2023 13:14 INDICATION: Cough. Shortness of breath. TECHNIQUE: Frontal and lateral views of the chest were obtained on 3 radiographs. COMPARISON: Chest single view 09/23/2023, CT abdomen and pelvis 09/28/2019 FINDINGS: There is mild atelectasis in the mid and lower lung zones. No pleural effusion or pneumotho rax. The heart size is normal. IMPRESSION: 1. Mild atelectasis in the mid and lower lung zones. Reviewed, dictated and finalized at location E.
[2023-10-02 12:18] VITALS: BP 151/85; PULSE 83; RESP 16; TEMP 36.5; O2SAT 97
--- NOTE | 2023-10-02 12:40 | ED.URI ---
HPI - URI/Sore Throat General Chief Complaint: Upper Respiratory Infection Stated Complaint: Sore Throat Time Seen by Provider: 10/02/23 12:43 Source: patient Mode of arrival: ambulatory Limitations: no limitations History of Present Illness HPI Narrative: 63-year-old female with hx COPD, MS, and breast cancer (post mastectomy) presented for complaint of cough throughout the night and this morning. States she feels like crap. Cough is productive of yellow sputum. Denies significant increase in SOB from baseline. Denies hemoptysis, n/v/d/f/c or lethargy. Contacted pcp who advised UC. Endorses sick last week. Not taking anything new for cough. Patient also reports 'right kidney pain' for a few days, right thigh pain, and a hole in the left nostril, for which she is taking antibiotic ointment. Related Data Home Medications Medication Instructions Recorded Confirmed albuterol sulfate 2.5 mg/3 mL 2.5 mg inhalation QID 12/15/19 10/02/23 (0.083 %) solution for nebulization aspirin 81 mg tablet,delayed 81 mg PO DAILY 12/15/19 10/02/23 release (Adult Low Dose Aspirin) biotin 5 mg capsule 5 mg PO DAILY 12/15/19 10/02/23 diphenoxylate-atropine 2.5 2 tablet PO QID PRN Abdominal Pain 12/15/19 10/02/23 mg-0.025 mg tablet (Lomotil) galcanezumab-gnlm 120 mg/mL 120 mg subcut MONTHLY 12/15/19 10/02/23 subcutaneous pen injector (Emgality Pen) glatiramer 20 mg/mL subcutaneous 20 mg subcut DAILY 12/15/19 10/02/23 syringe (Copaxone) mecobalamin (vitamin B12) 5,000 5,000 mcg PO .QD 12/15/19 10/02/23 mcg disintegrating tablet multivitamin (Multiple Vitamins 1 tablet PO DAILY 12/15/19 10/02/23 tablet) zinc 50 mg tablet 50 mg PO DAILY 12/15/19 10/02/23 glucosamine-chondroitin 500 mg-400 1 cap PO TID 08/27/20 10/02/23 mg capsule simethicone 125 mg chewable tablet 250 mg PO TID 08/27/20 10/02/23 (Gas-X Extra Strength) calcium carbonate 200 mg calcium 400 mg PO TID PRN Abdominal Pain 03/05/21 10/02/23 (500 mg) chewable tablet (Tums) cranberry 400 mg capsule 400 mg PO TID 03/05/21 10/02/23 baclofen 10 mg tablet 30 mg PO QID muscle spasm 08/07/21 10/02/23 desipramine 10 mg tablet 15 mg PO QPM 08/07/21 10/02/23 fluticasone propionate 50 1 spray intranasal DAILY 05/19/22 10/02/23 mcg/actuation nasal spray,suspension (Flonase Allergy Relief) Lactobacills gasseri-Bifidobac 1 cap PO DAILY 07/28/22 10/02/23 bifidum,longum 1.5 billion cell capsule (DataMotion) Tylenol#3 1 - 2 tab-cap PO Q4-6H PRN 07/28/22 10/02/23 Migraine Headache acetaminophen 500 mg tablet 500 mg PO Q6H PRN Pain 07/28/22 10/02/23 (Tylenol Extra Strength) fluoride (sodium) 1.1 % dental gel 1 applic dental HS 07/28/22 10/02/23 (PreviDent) menthol 5.8 mg lozenges ([place] 5.8 mg mucous membrane Q2-4H PRN 07/28/22 10/02/23 Cough Drops) Sore Throat sodium bicarbonate-sodium 1 ea TID 07/28/22 10/02/23 chloride-neti pot nasal rinse with packet (NeilMed NasaFlo packet with sinus rinse device) omega 8-dkk-mtt-fish oil 1,000 mg 3 cap PO DAILY 08/19/22 10/02/23 (120 mg-180 mg) capsule (Fish Oil) tiotropium 2.5 mcg-olodaterol 2.5 1 puff inhalation BID 06/09/23 10/02/23 mcg/actuation mist for inhalation (Stiolto Respimat) exemestane 25 mg tablet 25 mg PO DAILY 07/27/23 10/02/23 fluconazole 150 mg tablet 150 mg PO ONCE 09/23/23 10/02/23 fluconazole 200 mg tablet 200 mg PO DAILY 09/30/23 10/02/23 (Diflucan) Allergies Allergy/AdvReac Type Severity Reaction Status Date / Time adhesive tape Allergy Mild Unknown Verified 10/02/23 12:07 amphetamine [From Adderall] Allergy Mild Other Verified 10/02/23 12:07 armodafinil [From Nuvigil] Allergy Mild Unknown Verified 10/02/23 12:07 aspartame Allergy Mild Unknown Verified 10/02/23 12:07 [From Nutrasweet Aspartame] cefuroxime [From Ceftin] Allergy Mild Unknown Verified 10/02/23 12:07 dextroamphetamine Allergy Mild Other Verified 10/02/23 12:07 [From Adderall] gabapent
== END 2023-10-02 14:03 | disposition home or self-care (01) ==
PROVIDERS: Emergency Provider Nurse Practitioner Family; PCP Physician Assistant
DX: J40 Bronchitis, not specified as acute or chronic (principal); Z20.822 Contact with and (suspected) exposure to COVID-19; Z87.891 Personal history of nicotine dependence; J45.909 Unspecified asthma, uncomplicated; E78.00 Pure hypercholesterolemia, unspecified; I10 Essential (primary) hypertension; E03.9 Hypothyroidism, unspecified; G35 Multiple sclerosis; Z85.3 Personal history of malignant neoplasm of breast; Z90.13 Acquired absence of bilateral breasts and nipples; Z79.82 Long term (current) use of aspirin
CPT/HCPCS: 71046; 81003; 87426; 87804; 99213; C9803; G0463

== ENCOUNTER 2023-10-16 10:49 | Emergency (ER) | payer MEDICARE, BC, SELFPAY ==
--- NOTE | ~2023-10-16 | CT_ITS ---
EXAMINATION:CT diagnostic chest wo con DATE: 10/16/2023 13:09 INDICATION: Chronic cough. TECHNIQUE: Computed tomography (CT) of the chest was performed without intravenous contrast. Automate d exposure control and iterative reconstruction technique were employed. The dose-length product (DLP ) was 736.97 mGy-cm. COMPARISON: Chest CT 01/16/2014 FINDINGS: There is mild emphysema. There is mosaic attenuation in the lungs, likely small airways dis ease. Calcified left lung nodules are consistent with old granulomatous disease. There is mild atelec tasis bilaterally. No pleural effusion. The heart size is normal. There are coronary artery calcifica tions. No pericardial effusion. There is moderate thoracic spondylosis. IMPRESSION: 1. Mild emphysema. 2. Mosaic attenuation in the lungs, likely small airways disease. Reviewed, dictated and finalized at location A. ET CLEANER
--- NOTE | ~2023-10-16 | XR_ITS ---
XR chest 2V DATE: 10/16/2023 11:42 INDICATION: Cough, shortness of breath TECHNIQUE: AP and lateral views COMPARISON: 10/29/2023 2 view chest 06/20/2022 2 view chest FINDINGS: Chronic discoid scarring in the mid and lower lung zones. No pulmonary consolidation, pleur al effusion, pulmonary vascular congestion or pneumothorax is detected. Heart size appears within normal range. There is radiopaque material within the splenic flexure of the colon. Diffuse osteopenia. Degenerative spurring and mild dextroscoliosis of the thoracic spine. IMPRESSION: Mild discoid scarring in the mid and lower lung zones Reviewed, dictated and finalized at location B. BUCKER
[2023-10-16 10:55] VITALS: BP 168/89; PULSE 88; RESP 22; TEMP 36.3; O2SAT 96
[2023-10-16 11:03] VITALS: BP 171/95; PULSE 92; RESP 18; O2SAT 97
--- NOTE | 2023-10-16 11:16 | ECG_ITS ---
Measurements Intervals [place] Rate: 94 P: 41 ID: [id number] QRS: 60 QRSD: 101 T: 40 QT: 335 QTc: 419 Interpretive Statements SINUS RHYTHM EARLY PRECORDIAL R/S TRANSITION BORDERLINE ECG COMPARED TO ECG 02/24/2023 14:30:50 NO SIGNIFICANT CHANGES Electronically Signed On 10-16-2023 11:43:06 CHURN OPERATOR by Cole Freedman D.O.
[2023-10-16 11:31] VITALS: BP 152/83; PULSE 92; RESP 20; O2SAT 97
[2023-10-16 11:38] LABS: Basophils Absolute Auto 0.1 K/mm3 (0.0-0.1); Basophils Percent Auto 0.5 % (0.2-1.2); Eosinophils Absolute Auto 0.2 K/mm3 (0-0.3); Eosinophils Percent Auto 1.8 % (0-4.4); Hematocrit 44.5 % (37.0-47.0); Hemoglobin 13.9 g/dL (12.0-15.0); Immature Granulocyte Absolute 0.04 K/mm3 (0.00-0.031); Immature Granulocyte Percent A 0.4 % (0-0.5); Lymphocytes Absolute Auto 1.86 K/mm3 (0.9-3.2); Lymphocytes Percent Auto 19.5 % (18.3-44.2); Mean Corpuscular HGB Conc 31.2 g/dl (32-36); Mean Corpuscular Hemoglobin 28.6 pg (26-34); Mean Corpuscular Volume 91.6 fl (80-100); Mean Platelet Volume 10.7 fl (7.4-10.4); Monocytes Absolute Auto 0.7 K/mm3 (0.1-0.6); Monocytes Percent Auto 6.8 % (2.6-8.5); Neutrophils Absolute Auto 6.8 K/mm3 (1.3-6.7); Platelet Count Result 290 k/mm3 (150-375); Red Blood Count 4.86 M/mm3 (4.2-5.4); White Blood Count 9.5 K/mm3 (4.5-10.0)
[2023-10-16 11:47] LABS: Alanine Aminotransferase 38 U/L (6-35); Albumin Level 4.4 g/dL (3.5-5.1); Alkaline Phosphatase 115 U/L (38-126); Anion Gap 7 mmol/L (8-16); Aspartate Amino Transferase 26 U/L (14-36); Bilirubin,Total 0.4 mg/dL (0.2-1.3); Blood Urea Nitrogen 9 mg/dL (7-17); Calcium 9.6 mg/dL (8.4-10.2); Carbon Dioxide 26 mmol/L (22-30); Chloride 106 mmol/L (98-107); Estimated CRCL calculation 78 ml/min; Estimated Glomerular Filt Rate > 60; Glucose 97 mg/dL (65-110); Sodium 139 mmol/L (137-145)
[2023-10-16 11:51] LABS: INR 0.9; Partial Thromboplastin Time 30.8 SECONDS (22.3-36.8); Prothrombin Time 12.4 Seconds (11.1-14.7)
[2023-10-16 11:59] LABS: NT Pro B Type Natriuretic Pept 56 pg/mL (19.9-100); Troponin I < 0.012 ng/mL (0.000-0.034)
--- NOTE | 2023-10-16 12:38 | PC.NURSE ---
Patient ambulates to the restroom with assist from walker with steady gate
[2023-10-16 13:16] VITALS: PULSE 78; RESP 17; O2SAT 98
--- NOTE | 2023-10-16 13:32 | ED.URI ---
HPI - URI/Sore Throat General Chief Complaint: Upper Respiratory Infection Stated Complaint: URI symptoms Time Seen by Provider: 10/16/23 11:37 Source: patient Mode of arrival: ambulatory Limitations: no limitations History of Present Illness HPI Narrative: 63-year-old female presents today with cough since With beginning of September. Patient has been seen here for this reason. This followed up with her educational interpreter for the same reason. Note reviewed. Patient with no new symptoms. States that the cough is not just gotten better. Discussed that a cough can last for 6-8 weeks. She denies fever, body aches, chills, coughing up blood. She refuses she use her budesonide states that it gives her oral thrush. Will use her albuterol and has been using the nebulizer every 6 hours the. MD elicited complaint: cough Related Data Home Medications Medication Instructions Recorded Confirmed albuterol sulfate 2.5 mg/3 mL 2.5 mg inhalation QID 12/15/19 10/06/23 (0.083 %) solution for nebulization aspirin 81 mg tablet,delayed 81 mg PO DAILY 12/15/19 10/06/23 release (Adult Low Dose Aspirin) biotin 5 mg capsule 5 mg PO DAILY 12/15/19 10/06/23 diphenoxylate-atropine 2.5 2 tablet PO QID PRN Abdominal Pain 12/15/19 10/06/23 mg-0.025 mg tablet (Lomotil) galcanezumab-gnlm 120 mg/mL 120 mg subcut MONTHLY 12/15/19 10/06/23 subcutaneous pen injector (Emgality Pen) glatiramer 20 mg/mL subcutaneous 20 mg subcut DAILY 12/15/19 10/06/23 syringe (Copaxone) mecobalamin (vitamin B12) 5,000 5,000 mcg PO .QD 12/15/19 10/06/23 mcg disintegrating tablet multivitamin (Multiple Vitamins 1 tablet PO DAILY 12/15/19 10/06/23 tablet) zinc 50 mg tablet 50 mg PO DAILY 12/15/19 10/06/23 glucosamine-chondroitin 500 mg-400 1 cap PO TID 08/27/20 10/06/23 mg capsule simethicone 125 mg chewable tablet 250 mg PO TID 08/27/20 10/06/23 (Gas-X Extra Strength) calcium carbonate 200 mg calcium 400 mg PO TID PRN Abdominal Pain 03/05/21 10/06/23 (500 mg) chewable tablet (Tums) cranberry 400 mg capsule 400 mg PO TID 03/05/21 10/06/23 baclofen 10 mg tablet 30 mg PO QID muscle spasm 08/07/21 10/06/23 desipramine 10 mg tablet 15 mg PO QPM 08/07/21 10/06/23 fluticasone propionate 50 1 spray intranasal DAILY 05/19/22 10/06/23 mcg/actuation nasal spray,suspension (Flonase Allergy Relief) Lactobacills gasseri-Bifidobac 1 cap PO DAILY 07/28/22 10/06/23 bifidum,longum 1.5 billion cell capsule (MyStream) Tylenol#3 1 - 2 tab-cap PO Q4-6H PRN 07/28/22 10/06/23 Migraine Headache acetaminophen 500 mg tablet 500 mg PO Q6H PRN Pain 07/28/22 10/06/23 (Tylenol Extra Strength) fluoride (sodium) 1.1 % dental gel 1 applic dental HS 07/28/22 10/06/23 (PreviDent) menthol 5.8 mg lozenges ([place] 5.8 mg mucous membrane Q2-4H PRN 07/28/22 10/06/23 Cough Drops) Sore Throat sodium bicarbonate-sodium 1 ea TID 07/28/22 10/06/23 chloride-neti pot nasal rinse with packet (NeilMed NasaFlo packet with sinus rinse device) omega 3-eiq-nfl-fish oil 1,000 mg 3 cap PO DAILY 08/19/22 10/06/23 (120 mg-180 mg) capsule (Fish Oil) tiotropium 2.5 mcg-olodaterol 2.5 1 puff inhalation BID 06/09/23 10/06/23 mcg/actuation mist for inhalation (Stiolto Respimat) exemestane 25 mg tablet 25 mg PO DAILY 07/27/23 10/06/23 fluconazole 150 mg tablet 150 mg PO ONCE 09/23/23 10/06/23 fluconazole 200 mg tablet 200 mg PO DAILY 09/30/23 10/06/23 (Diflucan) Allergies Allergy/AdvReac Type Severity Reaction Status Date / Time adhesive tape Allergy Mild Unknown Verified 11/17/23 11:16 amphetamine [From Adderall] Allergy Mild Other Verified 10/16/23 11:16 armodafinil [From Nuvigil] Allergy Mild Unknown Verified 10/16/23 11:16 aspartame Allergy Mild Unknown Verified 10/16/23 11:16 [From Nutrasweet Aspartame] cefuroxime [From Ceftin] Allergy Mild Unknown Verified 10/16/23 11:16 dextroamphetamine Allergy Mild Other Verified 10/16/23 11:16 [From Adderall
[2023-10-16 13:40] VITALS: BP 172/81; PULSE 88; RESP 19; O2SAT 98
== END 2023-10-16 14:06 | disposition home or self-care (01) ==
PROVIDERS: General Practice; Emergency Provider Nurse Practitioner Family; PCP Physician Assistant
DX: J42 Unspecified chronic bronchitis (principal); R06.02 Shortness of breath; E03.9 Hypothyroidism, unspecified; I10 Essential (primary) hypertension; J45.909 Unspecified asthma, uncomplicated; Z87.891 Personal history of nicotine dependence
CPT/HCPCS: 36415; 71046; 71250; 80053; 83880; 84484; 85025; 85610; 85730; 93005; 99284

== ENCOUNTER 2023-10-20 12:28 | Emergency (ER) | payer MEDICARE, BC, SELFPAY ==
--- NOTE | ~2023-10-20 | XR_ITS ---
XR chest 2V 10/20/2023 13:51 Indication: Cough. Procedure: 2 view chest Comparison: 10/16/2023 Findings: Improving interstitial edema. There are persistent linear infiltrates bilaterally of the mi d and lower lungs which may represent mild edema, interstitial lung disease or less likely atypical p neumonia. No pleural effusion. No pneumothorax. No acute osseous abnormality. Impression: 1: Persistent linear infiltrates of the mid and lower lungs which may represent mild edema, interstit ial lung disease or atypical pneumonia. Reviewed, dictated and finalized at location L. ERY STOCKER Impression: 1: Persistent linear infiltrates of the mid and lower lungs which may represent mild edema, interstitial lung disease or atypical pneumonia.
[2023-10-20 12:57] VITALS: BP 163/76; PULSE 100; RESP 20; TEMP 36.4; O2SAT 96
--- NOTE | 2023-10-20 13:00 | ED.URI ---
HPI - URI/Sore Throat General Chief Complaint: Upper Respiratory Infection <AMY Mckinney Last Filed: 10/21/23 09:12> Stated Complaint: cough/congestion <AMY Mckinney Last Filed: 10/21/23 09:12> Time Seen by Provider: 10/20/23 14:00 <AMY Mckinney Last Filed: 10/21/23 09:12> Source: patient and old records reviewed <AMY Mckinney Last Filed: 10/21/23 09:12> Mode of arrival: ambulatory <AMY Mckinney Last Filed: 10/21/23 09:12> Limitations: no limitations <AMY Mckinney Last Filed: 10/21/23 09:12> History of Present Illness HPI Narrative: Patient is a 63 y/o female, with PMH of asthma and MS, who presents to the ED with c/o cough X1 mo. Patient has been seen in the ED several times for this cough. She has been on doxycycline X2, zpack, steroids, inhalers, tessalon perles without relief. C/o SOB, rib pain with coughing, occasional wheezing. Denies CP at rest. Denies fevers. Denies lower extremity swelling. <AMY Mckinney Last Filed: 10/21/23 09:12> Related Data Home Medications: Home Medications Medication Instructions Recorded Confirmed albuterol sulfate 2.5 mg/3 mL 2.5 mg inhalation QID 12/15/19 10/06/23 (0.083 %) solution for nebulization aspirin 81 mg tablet,delayed 81 mg PO DAILY 12/15/19 10/06/23 release (Adult Low Dose Aspirin) biotin 5 mg capsule 5 mg PO DAILY 12/15/19 10/06/23 diphenoxylate-atropine 2.5 2 tablet PO QID PRN Abdominal Pain 12/15/19 10/06/23 mg-0.025 mg tablet (Lomotil) galcanezumab-gnlm 120 mg/mL 120 mg subcut MONTHLY 12/15/19 10/06/23 subcutaneous pen injector (Emgality Pen) glatiramer 20 mg/mL subcutaneous 20 mg subcut DAILY 12/15/19 10/06/23 syringe (Copaxone) mecobalamin (vitamin B12) 5,000 5,000 mcg PO .QD 12/15/19 10/06/23 mcg disintegrating tablet multivitamin (Multiple Vitamins 1 tablet PO DAILY 12/15/19 10/06/23 tablet) zinc 50 mg tablet 50 mg PO DAILY 12/15/19 10/06/23 glucosamine-chondroitin 500 mg-400 1 cap PO TID 08/27/20 10/06/23 mg capsule simethicone 125 mg chewable tablet 250 mg PO TID 08/27/20 10/06/23 (Gas-X Extra Strength) calcium carbonate 200 mg calcium 400 mg PO TID PRN Abdominal Pain 03/05/21 10/06/23 (500 mg) chewable tablet (Tums) cranberry 400 mg capsule 400 mg PO TID 03/05/21 10/06/23 baclofen 10 mg tablet 30 mg PO QID muscle spasm 08/07/21 10/06/23 desipramine 10 mg tablet 15 mg PO QPM 08/07/21 10/06/23 fluticasone propionate 50 1 spray intranasal DAILY 05/19/22 10/06/23 mcg/actuation nasal spray,suspension (Flonase Allergy Relief) Lactobacills gasseri-Bifidobac 1 cap PO DAILY 07/28/22 10/06/23 bifidum,longum 1.5 billion cell capsule (nanoRETE) Tylenol#3 1 - 2 tab-cap PO Q4-6H PRN 07/28/22 10/06/23 Migraine Headache acetaminophen 500 mg tablet 500 mg PO Q6H PRN Pain 07/28/22 10/06/23 (Tylenol Extra Strength) fluoride (sodium) 1.1 % dental gel 1 applic dental HS 07/28/22 10/06/23 (PreviDent) menthol 5.8 mg lozenges ([place] 5.8 mg mucous membrane Q2-4H PRN 07/28/22 10/06/23 Cough Drops) Sore Throat sodium bicarbonate-sodium 1 ea TID 07/28/22 10/06/23 chloride-neti pot nasal rinse with packet (NeilMed NasaFlo packet with sinus rinse device) omega 6-ati-uss-fish oil 1,000 mg 3 cap PO DAILY 08/19/22 10/06/23 (120 mg-180 mg) capsule (Fish Oil) tiotropium 2.5 mcg-olodaterol 2.5 1 puff inhalation BID 06/09/23 10/06/23 mcg/actuation mist for inhalation (Stiolto Respimat) exemestane 25 mg tablet 25 mg PO DAILY 07/27/23 10/06/23 fluconazole 150 mg tablet 150 mg PO ONCE 09/23/23 10/06/23 fluconazole 200 mg tablet 200 mg PO DAILY 09/30/23 10/06/23 (Diflucan) <Regina Lopez PA-C - Last Filed: 10/21/23 09:12> Allergies/Adverse Reactions: Allergies Allergy/AdvReac Type Severity Reaction Status Date / Time adhesive tape Allergy Mild Un
[2023-10-20 15:45] LABS: Influenza A QL RT-PCR Negative (Negative); Influenza B QL RT-PCR Negative (Negative); RSV RNA, RT-PCR Negative (Negative); SARS-CoV-2 RNA PCR Negative (Negative)
[2023-10-20] MEDS: DOXYCYCLINE HYCLATE 100 MG TABLET PO (15:59)
== END 2023-10-20 16:05 | disposition home or self-care (01) ==
PROVIDERS: Emergency Provider Emergency Medicine; PCP Physician Assistant
DX: J18.9 Pneumonia, unspecified organism (principal); F41.9 Anxiety disorder, unspecified; J45.909 Unspecified asthma, uncomplicated; I10 Essential (primary) hypertension; E03.9 Hypothyroidism, unspecified
CPT/HCPCS: 71046; 87637; 99283; A9270

== ENCOUNTER 2023-11-13 12:15 | Outpatient (CLI) | payer MEDICARE, BC, SELFPAY ==
--- NOTE | ~2023-11-13 | XR_ITS ---
EXAMINATION: XR chest 2V DATE: 11/13/2023 12:54 INDICATION: Cough and shortness of breath. TECHNIQUE: Frontal and lateral views of the chest were obtained. COMPARISON: Chest 2 views 10/20/2023 FINDINGS: There is mild atelectasis in the mid and lower lung zones. No pleural effusion or pneumotho rax. The heart size is normal. IMPRESSION: 1. Mild atelectasis in the mid and lower lung zones. Reviewed, dictated and finalized at location A. OR JAVA SOFTWARE DEVELOPER
--- NOTE | ~2023-11-13 | XR_ITS ---
EXAMINATION: XR abdomen/kub 1V DATE: 11/13/2023 12:54 INDICATION: Unspecified abdominal pain. TECHNIQUE: A supine view of the abdomen on 2 radiographs was obtained. COMPARISON: CT abdomen and pelvis 09/28/2019 FINDINGS: There are no dilated loops of bowel. There is a small volume of stool in the colon. There a re diverticula in the colon. There are phleboliths in the pelvis. IMPRESSION: 1. Nonobstructed bowel gas pattern. Reviewed, dictated and finalized at location A. [employer]
== END 2023-11-13 12:16 | disposition home or self-care (01) ==
PROVIDERS: PCP Physician Assistant; Visit Provider Physician Assistant
DX: R05.9 Cough, unspecified (principal); R10.9 Unspecified abdominal pain; R91.8 Other nonspecific abnormal finding of lung field
CPT/HCPCS: 71046; 74018

== ENCOUNTER 2024-07-19 10:32 | Outpatient (CLI) | payer MEDICARE, SELFPAY ==
--- NOTE | ~2024-07-19 | XR_ITS ---
XR hip BI wo pelvis Ordering provider: Ayan Orozco APRN History: . M25.551 - Pain in right hip . Comparison: None. FINDINGS: BONES: No acute fracture or dislocation. HIP JOINT SPACES: Narrowing of the joints with bilateral mild osteoarthritic changes PUBIC SYMPHYSIS: Normal. SOFT TISSUES: Pubic symphysitis. IMPRESSION: No acute osseous abnormality of the bilateral hips and pelvis. Reviewed, dictated and finalized at location A.
== END 2024-07-19 10:33 | disposition home or self-care (01) ==
PROVIDERS: PCP Nurse Practitioner; Visit Provider Nurse Practitioner
DX: G89.29 Other chronic pain (principal); M25.551 Pain in right hip; M25.552 Pain in left hip
CPT/HCPCS: 73521

== ENCOUNTER 2025-01-06 10:57 | Outpatient (CLI) | payer MEDICARE, SELFPAY ==
--- NOTE | ~2025-01-06 | XR_ITS ---
CHEST RADIOGRAPH, PA AND LATERAL CLINICAL HISTORY: R05 - Cough BARK SOUNDS . COMPARISON: 11/13/2023 TECHNIQUE: PA and lateral views of the chest. FINDINGS The cardiomediastinal silhouette is unremarkable. The lungs are clear. Visualized osseous structures and soft tissues are unremarkable. IMPRESSION: No focal infiltrate or effusion. Reviewed, dictated and finalized at location A. [employer]BO[employer] TICKET TAKER
--- OUTSIDE RECORDS SUMMARY | 2025-01-06 11:41 | XMS_ITS | Encounter Summary ---
Author Organization [facility] Address [address] [place] [address] Care Team Providers Care Senior Cost Analyst Name Role Phone Rod Buckner PA-C Primary Care Provide r Encounter Details Date Type Department Care Team (Late st Contact Info) Description 02/07/2000 Outpatient Historical [facility] MRI DEPT Armida Mendez MD [address] [facility] [address] [place] [id number] Multiple sclerosis (CMS/HCC) (Primary Dx) Social History Tobacco Use Types Packs/Day Years Used Date Smoking Tobacco: Never Assessed Comments Unknown Sex and Gender Information Value Date Recorded Sex Assigned at Not on file Legal Sex Female 5:09 AM FURNITURE CRATER Gender Identity Not on file Sexual Orientation Not on file documented as of this encounter Plan of Treatment Not on file documented as of this encounter Visit Diagnoses Diagnosis Multiple sclerosis (CMS/HCC)- Primary Multiple sclerosis documented in this encounter Care Teams Senior Cost Analyst Relationship Specialty Start Date End Date Rod Buckner PA-C PCP - General Physician Promotions Officer 10/05/20 documented as of this encounter
--- OUTSIDE RECORDS SUMMARY | 2025-01-06 11:41 | XMS_ITS | Encounter Summary ---
Author Organization [facility] Address [address] [place] [address] Phone Care Team Providers Care Computer Application Developer Name Role Phone Rod Buckner Primary Care Provider Gail Wyatt MD Unavailable [phone] Encounter Details Date Type Department Care Team (Latest Contact Info) Description 06/20/2022 Orders Only [facility] Scanning, Provider Social History Tobacco Use Types Packs/Day Years Used Date Smoking Tobacco: Former Cigarettes 1.5 20 0 05/23/1971 - 05/23/1991 Smokeless Tobacco: Former Alcohol Use Standard Drinks/Week Comments No 0 (1 standard drink = 0.6 oz pur e alcohol) AUDIT-C Answer Date Recorded Q1: How often do you have a drink containing alc ohol? Never 05/23/2021 Average Number of Drinks Not on file 021 Q3: How often do you have si x or more drinks on one occasion? Never 05/23/2021 PHQ-2 Answer Date Recorded PHQ-2 Score 0 07/22/2019 Comments Unknown Sex and Gender Information Value Date Recorded Sex Assigned at Not on file Legal Sex Female 7:38 PM LEGAL SUPPORT MANAGER Gender Identity Female 06/29/2020 2:02 PM CDT Sexual Orientation Not on file documented as of this encounter Plan of Treatment Not on file documented as of this encounter Procedures Procedure Name Priority Date/Time Associated Diagnosis Comments SCAN - RADIOLOGY/IMAGING 06/20/2022 documented in this encounter Results * SCAN - RADIOLOGY/IMAGING (06/20/2022) Anatomical Region Laterality Modality Other us Provider Scanning Final Result documented in this encounter Visit Diagnoses Not on filedocumented in this encounter Additional Health Concerns Infection Onset Date Last Indicated Resolved Time 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 Savita Dumont RN [employer]+ on 05/31/22 sputum culture. Lena Gale 06/23/2022 06/23/2022 06/23/2022 03/27/2023 1:13 PM C DT documented as of this encounter Care Teams Computer Application Developer Relationship Specialty Start Date End Date Rod Buckner PA [address] [facility] [address] [place] [address] PCP - General Physician Stock Plan Administrator 02/15/19 Gail Wyatt MD [address] [place] [address] Medical Oncologist/Sales Service Rep Medical Oncology 07/23/22 documented as of this encounter
--- OUTSIDE RECORDS SUMMARY | 2025-01-06 11:41 | XMS_ITS | Clinical Summary ---
Author Organization [facility] Address [address], [facility] [address] [place] [address] Phone Care Team Providers Care Justice Court Judge Name Role Phone Rod Buckner Primary Care Provider Allergies Active Allergy Reactions Criticality Noted Date Comments Amphetamine-Dextroamphe tamine Other (see Comments) 02/11/2019 Heart palipations Allyl Isothiocyanate Vomiting,Unknown Low 7 Aspartame Other (see Comments) Medium 06/18/2018 Abdominal pain Other reaction(s): Other Abdominal pain Abdominal pain Bacitracin Unknown 02/11/2019 [place]ham Oil Unknown 02/11/2019 Cefuroxime Unknown 02/11/2019 Coconut (Cocos Nucifera) Vomiting,Unknown Low 02/04/2017 Other reaction(s): Nausea And Vomiting, Unknown Meperidine Unknown 02/11/2019 Diphenhydramine Palpitations Medium 01/28/2017 Ergotamine Tartrate Unknown 02/11/2019 Erythromycin Unknown 02/11/2019 Metronidazole Unknown 02/11/2019 Latex Unknown 02/11/2019 Liver Vomiting Low 02/04/2017 Other reaction(s): Nausea And Vomiting Other reaction(s): Nausea And Vomiting Nitrofurantoin Unknown 02/11/2019 Nitrofurantoin Macrocrystal Unknown 02/14/2019 Medical Adhesive Remover Rash Medium 11/10/2011 Neomycin Unknown 02/11/2019 Gabapentin Unknown 02/11/2019 Nitrates, Organic Unknown Low 08/10/2019 Other reaction(s): Unknown Nalbuphine Unknown 02/11/2019 Armodafinil Unknown 02/11/2019 Nystatin Unknown 02/11/2019 Other Unknown 02/11/2019 Adhesive tape, unsure about paper tape; polymyxin eye drops; ergot containing meds, Prolonged stomach stomach upset with cocoanut, liver, mustar, nutrasweet, spinach Oxcarbazepine Hives,Swelling Medium 03/01/2019 Tongue swelling and hives Tongue swelling and hives Tongue swelling and hives Tongue swelling and hives Tongue swelling and hives Tongue swelling and hives Tongue swelling and hives Tongue swelling and hives Penicillins Anaphylaxis 02/10/2019 Povidone Iodine Unknown Low 09/24/2018 Other reaction(s): Unknown Other reaction(s): Unknown Metoclopramide Hcl Unknown 02/11/2019 Rosuvastatin Other (see Comments),Unknown High 11/30/2009 Other reaction(s): Ototoxicity Other reaction(s): Ototoxicity Silver Nitrate Unknown 02/11/2019 Spinach Vomiting Low 02/04/2017 Other reaction(s): Nausea And Vomiting Pentazocine Lactate Unknown 02/11/2019 Medications amantadine (SYMMETREL) 100 MG Capsule Take 100 mg by mouth 2 times daily. Active baclofen (LIORESAL) 10 MG Tablet Take 10 mg by mouth 4 times daily. Active Glatiramer Acetate (COPAXONE SC) by Subcutaneous route daily. Active desipramine (NOPRAMIN) 10 MG TabletIndicatio ns:TAKES 1 1/2 tabs nightly Take 10 mg by mouth nightly. Indications: TAKES 1 1/2 tabs nightly Active dilTIAZem 120 MG Tablet Take 1 Tab by mouth daily. Active donepezil (ARICEPT) 10 MG Tablet Take 10 mg by mouth nightly. Active esomeprazole (NEXIUM) 40 MG Pack Take 40 mg by mouth 2 times daily. Active Fluticasone Propionate (FLONASE NA)Indications: each nostril 1 [place] by Nasal route daily. Indications: each nostril Active FUROSEMIDE PO Take 60 mg by mouth 2 times daily. Active montelukast (SINGULAIR) 10 MG Tablet Take 10 mg by mouth every evening. Active potassium chloride 40 MEQ/15ML (20%) Solution Take 10 mEq by mouth 3 times daily. Active Sodium Fluoride (PREVIDENT DT) by Dental route nightly. Active pravastatin (PRAVACHOL) 40 MG Tablet Take 40 mg by mouth daily. Active levothyroxine (SYNTHROID) 175 MCG Tablet Take 175 mcg by mouth daily. Active Tiotropium [place]-Olodate rol (STIOLTO RESPIMAT IN) take 1 Puff by inhalation 2 times daily. Active tamsulosin (FLOMAX) 0.4 MG Capsule Take 0.4 mg by mouth nightly. Active Cholecalciferol (VITAMIN D PO) Take 50,000 Units by mouth once a week. Active aspirin EC 81 MG Tablet Delayed Response Take 81 mg by mouth daily. Active MULTIPLE VITAMINS PO Take 1 Tab by mouth daily. Active CRANBERRY PO Take 4,200 mg by mouth 3 times daily. Active Zinc 50 MG Capsule Take 60 mg by mouth daily. Active biotin 300 MCG TabletIndicatio ns:5MG Take by mouth daily. Indications: 5MG Active Probiotic Product (Disqus PO) Take 1 Tab by mouth daily. Active Cyanocobalamin (VITAMIN B 12 PO) Take 5,000 mcg by mouth daily. Active otherIndication s:JODIE NASAL rinse by Other route 3 times daily. Indications: JODIE NASAL rinse Active glucosamine-cho ndroitin 500-400 MG Capsule Take 1 Cap by mouth 3 times daily. Active albuterol (PROVENTIL, VENTOLIN) (2.5 MG/3ML) 0.083% Nebulizer Soln 2.5 mg by Nebulization route every 4 hours as needed. Active cromolyn (INTAL) 20 MG/2ML Nebulizer Soln 20 mg by Nebulization route 4 times daily as needed. Active SUMAtriptan Succinate (IMITREX SC) by Subcutaneous route Daily as needed. Active Diphenoxylate-A tropine (LOMOTIL PO) Take 2.5 mg by mouth daily as needed. Active methylphenidate (METHYLIN ER) 10 MG Tablet Controlled Release Take 10 mg by mouth daily as needed. Active mupirocin (BACTROBAN) 2 % Ointment Apply 3 times daily. Application Site: nares(Descriptio n and Location) Active nitroGLYCERIN (NITROSTAT) 0.4 MG SL Tablet 0.4 mg by Sublingual route every 5 minutes as needed. Active acetaminophen-c odeine (TYLENOL #3) 300-30 MG Tablet Take 1 Tab by mouth every 4 hours as needed. Active albuterol (VENTOLIN HFA) 108 (90 Base) MCG/ACT Aerosol Solution take 2 Puffs by inhalation every 4 hours as needed. Active meclizine (ANTIVERT) 12.5 MG Tablet Take 12.5 mg by mouth every 6 hours as needed. Active Ca Carbonate-Mag Hydroxide (ROLAIDS PO) Take by mouth daily as needed. Active Loratadine (CLARITIN PO) Take by mouth Daily as needed. Active Pseudoephedrine HCl (SUDAFED PO) Take by mouth Daily as needed. Active Acetaminophen (TYLENOL EX ST ARTHRITIS PAIN PO) Take by mouth daily as needed. Active Chlorpheniramin e Maleate (CHLOR-TRIMETON ALLERGY PO) Take 0.5 Tabs by mouth Daily as needed. Active Pseudoephedrine -APAP-DM (DAYQUIL PO) Take by mouth daily as needed. Active Pseudoeph-Doxyl [id number]-ZX-[id number] (NYQUIL PO) Take by mouth Daily as needed. Active menthol (HALLS COUGH DROPS) 5.8 MG Lozenge 1 Lozenge by Mouth/Throat route as needed. Active Family History Medical History Relation Name Comments Cancer Father lung Cancer Mother lung Relation Name Status Comments Father Mother Social History Tobacco Use Types Packs/Day Years Used Date Smoking Tobacco: Former Cigarettes Q uit: 02/10/1991 Smokeless Tobacco: Never Comments:4 packs a day Alcohol Use Standard Drinks/Week Comments Never 0 (1 standard drink = 0.6 oz pur e alcohol) AUDIT-C Answer Date Recorded Frequency of Alcohol Consumption Never 10/23/2020 Average Number of Drinks Not on file 020 Frequency of Binge Drinking Not on file 10/01 Sexually Active Control Partners Comments Not Currently Comments Unknown Sex and Gender Information Value Date Recorded Sex Assigned at Not on file Legal Sex Female 11:30 PM CDT Gender Identity Not on file Sexual Orientation Not on file Last Filed Vital Signs Vital Sign Reading Time Taken Comments Blood Pressure 148/80 02/14/2019 10:35 AM CDT Pulse 94 02/14/2019 10:35 AM CDT Temperature 36 C (96.8 F) 02/14/2019 10:35 AM CDT Respiratory Rate 17 02/14/2019 10:35 AM CDT Oxygen Saturation 97% 02/14/2019 10:35 AM CDT Inhaled Oxygen Concentration - - Weight 90.7 kg (200 lb) 02/14/2019 10:35 AM CDT Height 154.3 cm (5' 0.75 ) 02/14/2019 10:35 AM C DT Body Mass Index 38.1 02/14/2019 10:35 AM CDT Plan of Treatment Health Maintenance Due Date Last Done Comments DEXA Bone Density 1960 Hepatitis C Virus (HCV) Screening 1960 Hepatitis B Immunization (3 of 3 - 19+ 3-dose series) 07/15/1998 03/12/1998, 01/15/1998 Cologuard 2008 Immunochemical Fecal Occult Blood 2008 Mammogram 2008 Zoster Immunization (2 of 3) 11/04/2013 09/09/2013 Pneumococcal Immunization (50+ years) (3 of 3 - PCV20 or PCV21) 12/09/2022 12/09/2017, 07/25/2015, 11/09/2012, Additional history exists Influenza Immunization (#1) 07/31/202408/01, 09/07/2019, 09/23/2017, Additional history exists SARS-COV-2 Immunization ( season) 2024 09/20/2021, 02/26/2021, 01/29/2021 Colonoscopy 08/22/2030 08/22/2020 Colorectal Cancer Screening 08/22/2030 Respiratory Syncytial Virus (RSV) Immunization (Adult) (1 - 1-dose 75+ series) 2033 08/22/2020 DTaP/Tdap/Td Immunization Discontinued 2011, 10/30/2012, 03/12/2006, Additional history exists TdaP Immunization Completed 11/09/2012, 10/30/2012 Pneumococcal Immunization Combined Discontinued 12/09/2017, 07/25/2015, 11/09/2012, Additional history exists Meningococcal Immunization (ACWY) Aged Out No longer eligible based on patient's age to complete this topic Rotavirus Immunization Aged Out No lo nger eligible based on patient's age to complete this topic [place] [place] [address] Relationship Specialty Start Date End Date Rod Buckner PAC [id number] [facility] [address] [facility] [address] [place] [address] PCP - General Physician Jig Operator 02/08/19
--- OUTSIDE RECORDS SUMMARY | 2025-01-06 11:41 | XMS_ITS | Encounter Summary ---
Author Organization [employer] Address [address] [place] [address] Care Team Providers Care Business Computers Teacher Name Role Phone Rod Buckner PA-C Primary Care Provide r Encounter Details Date Type Department Care Team (Late st Contact Info) Description 02/26/2000 Outpatient Historical Division of Neurology [address] [address] Armida Mendez MD [address] [facility] [address] [place] [id number] Social History Tobacco Use Types Packs/Day Years Used Date Smoking Tobacco: Never Assessed Comments Unknown Sex and Gender Information Value Date Recorded Sex Assigned at Not on file Legal Sex Female 5:09 AM [employer] Gender Identity Not on file Sexual Orientation Not on file documented as of this encounter Plan of Treatment Not on file documented as of this encounter Visit Diagnoses Not on filedocumented in this encounter Care Teams Business Computers Teacher Relationship Specialty Start Date End Date Rod Buckner PA-C PCP - General Physician Perinatal Specialist 10/05/20 documented as of this encounter
--- OUTSIDE RECORDS SUMMARY | 2025-01-06 11:41 | XMS_ITS | Referral Summary ---
Author Organization [facility] Address [address] [place] [address] Care Team Providers Care Professional Bass Fisherman Name Role Phone Rod Buckner PA-C Primary Care Provide r Zuly Miller MD Unavailable [phone] Source Comments [facility],non-owned Affiliates and Associated Physician Practices is amultiple site organization consisting of ambulatory clinics and hospital sitesin [place], [place], [place] and [place]. This disclosure is being madepursuant to the Care Everywhere program and may not contain all information available regarding this patient. Last updated 18.[facility] Encounters Date Type Department Care Team Description 01/04/2025 Travel 01/04/2025 9:55 AM BANQUET MANAGER Anesthesia Event [facility] [address] [place] [address] Neel Lopez MD Heath, Kayla D, Anes Asst 01/04/2025 10:30 AM BANQUET MANAGER - 01/04/2025 11:15 AM BANQUET MANAGER Surgery [facility] [address] [place] [address] Janeth Foreman MD EGD w/ maya--miralax prep--arrive 90min early 01/04/2025 8:44 AM BANQUET MANAGER - 01/04/2025 12:02 PM BANQUET MANAGER Hospital Encounter [facility] [address] [place] [address] Janeth Foreman MD Surgery General Discharge Disposition: Home or Self Care 12/30/2024 Patient Outreach [facility] [address] [place] [address] Yuni Orozco, KIERA 12/07/2024 Orders Only [facility] [address] [place] [address] Yuni Orozco, RN from Last 3 Months Allergies Active Allergy Reactions Criticality Noted Date Comments Amphetamine-Dextroampheta mine Palpitations Medium 01/28/2017 Adhesive Sensitivity Rash Medium 11/10/2011 Allergy Palpitations Medium 01/28/2017 Dermolin Nausea and/or Vomiting Low 02/04/2017 Allyl Isothiocyanate Nausea and/or Vomiting Low 02/04/2017 Cbqagvgn-Enjajhlnc-Wmtpjq ine Rash Medium 01/28/2017 Armodafinil Unknown High 06/12/2015 Other reaction(s): Neuropathy Bacitracin Unknown Low 02/11/2019 [place] Oil Nausea and/or Vomiting,Unknown Medium 11/10/2011 Cefuroxime Rash,Unknown Medium 11/30/2009 Coconut Oil Nausea and/or Vomiting,Unknown Low 02/04/2017 Meperidine Nausea and/or Vomiting Medium 01/28/2017 Dextroamphetamine Palpitations Medium 01/28/2017 Diphenhydramine Palpitations Medium 01/28/2017 Ergot Alkaloids Rash Medium 09/09/2018 Ergot Alkaloids Rash Medium 09/09/2018 Ergotamine Unknown Medium 02/11/2019 Erythromycin Rash Medium 01/28/2017 Eye Drops Other Low 06/18/2018 Polymycin eye drops Latex Rash,Unknown Medium 03/08/2012 SENSITIVITY TO LATEX Liver Nausea and/or Vomiting Low 02/04/2017 Metronidazole Rash,Unknown Medium 11/30/2009 Nalbuphine Rash,Unknown Medium 11/10/2011 Neomycin Unknown Medium 06/12/2015 Gabapentin Psychiatric Medium 01/28/2017 Organic Nitrates Unknown Low 08/10/2019 Nitrofurantoin Rash,Unknown Medium 11/30/2009 Aspartame Other Medium 06/18/2018 Abdominal pain Armodafinil Neuropathy High 01/28/2017 Nystatin Rash,Unknown Medium 01/28/2017 Oxcarbazepine Swelling,Urticaria Medium 03/01/2019 Tongue swelling and hives Penicillins Rash Medium 01/28/2017 Pentazocine Nausea and/or Vomiting,Unknown Medium 11/30/2009 Povidone Iodine Unknown Low 09/24/2018 Metoclopramide Nausea and/or Vomiting Low 01/28/2017 Rosuvastatin Ototoxicity High 11/30/2009 Silver Nitrate Rash Medium 01/28/2017 Skin Adhesives Rash Medium 11/10/2011 Spinach Nausea and/or Vomiting Low 02/04/2017 Medications * Be aware that medications may not be up to date on this document. Alwaysverify current medications with the patient. Medication Sig Dispensed Refills Start Date End Date Status baclofen (LIORESAL) 10 MG tablet Take 3 (three) tablets by mouth 4 times daily May cause drowsiness. Active dilTIAZem coated beads 24hr (CARDIZEM CD) 120 MG capsule Take 1 (one) capsule by mouth once daily Do not crush or chew. Active glatiramer (COPAXONE) 20 MG/ML prefilled syringe Inject 1 mL subcutaneously once daily Active fluticasone propionate (FLONASE) 50 MCG/ACT nasal spray [place]ow 1 (one) spray into each nostril 2 times daily Active Tiotropium Saxis-Olodatero l 2.5-2.5 MCG/ACT Inhale 1 puff by mouth 2 times daily Active amantadine (SYMMETREL) 100 MG capsule Take by mouth 2 times daily Active donepezil (ARICEPT) 10 MG tablet Take 1 (one) tablet by mouth at bedtime Active montelukast (SINGULAIR) 10 MG tablet Take 1 (one) tablet by mouth at bedtime Active pravastatin (PRAVACHOL) 40 MG tablet Take 1 (one) tablet by mouth at bedtime Active Sodium Fluoride (PREVIDENT DT)Indications:Dy sphagia,Dysphagia , unspecified type,Adenomatous polyp of colon, unspecified part of colon,Diarrhea, unspecified type by dental route at bedtime Active aspirin (ASPIRIN) 81 MG tabletIndications :Dysphagia,Dyspha luisa, unspecified type,Adenomatous polyp of colon, unspecified part of colon,Diarrhea, unspecified type Take 1 (one) tablet by mouth once daily Active multivitamin daily (THERAGRAN) tabletIndications :Dysphagia,Dyspha luisa, unspecified type,Adenomatous polyp of colon, unspecified part of colon,Diarrhea, unspecified type Take 1 (one) tablet by mouth daily with food Active Zinc 30 MGIndications:Dys phagia,Dysphagia, unspecified type,Adenomatous polyp of colon, unspecified part of colon,Diarrhea, unspecified type Take 60 mg by mouth once daily Active Probiotic Product ([employer] HEALTH PO)Indications:Dy sphagia,Dysphagia , unspecified type,Adenomatous polyp of colon, unspecified part of colon,Diarrhea, unspecified type Take 1 tablet by mouth once daily Active Cyanocobalamin 5000 MCG TBDPIndications:D ysphagia,Dysphagi a, unspecified type,Adenomatous polyp of colon, unspecified part of colon,Diarrhea, unspecified type Take 1 tablet by mouth once daily Active Glucosamine-Chond roitin (GLUCOSAMINE CHONDR COMPLEX PO)Indications:Dy sphagia,Dysphagia , unspecified type,Adenomatous polyp of colon, unspecified part of colon,Diarrhea, unspecified type Take 1 tablet by mouth 3 times daily Active nitroGLYCERIN (NITROSTAT) 0.4 MG tabletIndications :Dysphagia,Dyspha luisa, unspecified type,Adenomatous polyp of colon, unspecified part of colon,Diarrhea, unspecified type Dissolve 1 (one) tablet under the tongue as needed 04/01/2018 Active meclizine (ANTIVERT) 12.5 MG tabletIndications :Dysphagia,Dyspha luisa, unspecified type,Adenomatous polyp of colon, unspecified part of colon,Diarrhea, unspecified type Take 2 (two) tablets by mouth every 6 hours as needed Active albuterol HFA (PROVENTIL; VENTOLIN; PROAIR) 108 (90 Base) MCG/ACT inhalerIndication s:Dysphagia,Dysph agia, unspecified type,Adenomatous polyp of colon, unspecified part of colon,Diarrhea, unspecified type Inhale 2 (two) puffs by mouth 4 times daily as needed 2 puffs 3 times daily Active albuterol (PROVENTIL;VENTOL IN) (2.5 MG/3ML) 0.083% nebulizer solutionIndicatio ns:Dysphagia,Dysp hagia, unspecified type,Adenomatous polyp of colon, unspecified part of colon,Diarrhea, unspecified type Inhale by mouth every 4 hours as needed for Shortness of Breath or Wheezing Active mupirocin (BACTROBAN) 2 % ointmentIndicatio ns:Dysphagia,Dysp hagia, unspecified type,Adenomatous polyp of colon, unspecified part of colon,Diarrhea, unspecified type Apply to affected area as needed Active Ca Carbonate-Mag Hydroxide (ROLAIDS PO) Take by mouth as needed Active Menthol (HALLS COUGH DROPS MT) by Mouth/Throat route every 2 hours as needed Active furosemide (LASIX) 40 MG tabletIndications :Edema Take 1.5 (one and one-half) tablets by mouth 2 times daily Reasons: Edema Active EMGALITY 120 MG/ML auto-injector pen INJECT CONTENTS OF 1 PEN (120 MG) UNDER THE SKIN EVERY 30 DAYS 5 10/29/2019 Active methylphenidate CR (METADATE CD) 20 MG capsule as needed 10/19/2019 Active POTASSIUM CHLORIDE ER PO Take 45 mL by mouth duluted into 120ml of water 3 times daily Active Simethicone (GAS-X PO) Take by mouth 3 times daily Active acetaminophen (TYLENOL) 325 MG tablet Take 2 tablets by mouth every 4 hours as needed for Fever or Pain Maximum allowable Acetaminophen amount = 4 Grams (4000 mg) / 24 hours. 104 tablet 1 07/06/2020 Active acetaminophen-cod eine (TYLENOL #3) 300-30 MG tablet Take 1 tablet by mouth every 6 hours as needed for Pain 24 tablet 07/06/2020 Active Additional Information Patient not taking.Reported on 07/27/2024 Cholecalciferol 1.25 MG (36744 UT) Take 50,000 Units by mouth Active tamsulosin (FLOMAX) 0.4 MG capsule 01/02/2021 Active cetirizine (ZYRTEC) 10 MG tablet Take 1 (one) tablet by mouth once daily 04/10/2021 Active [place]-3 Fatty Acids (fish oil) 1000 MG capsule Active biotin 5 MG tablet Active benzonatate (Tessalon) 200 MG capsule 3 times daily as needed 11/29/2022 Active methylphenidate (Ritalin) 10 MG tablet Take 1 (one) tablet by mouth 2 times daily 11/27/2022 Active SUMAtriptan Succinate 6 MG/0.5ML 09/04/2022 Active EVENING PRIMROSE OIL PO Take 1,300 mg by mouth once daily Active CRANBERRY EXTRACT PO Take 8,400 mg by mouth 3 times daily Active betamethasone dipropionate augmented (Diprolene Af) 0.05 % cream 2 times daily as needed 07/23/2023 Active hyoscyamine (Levsin SL) 0.125 MG sublingual tabletIndications :Oropharyngeal dysphagia DISSOLVE UNDER THE TONGUE 1 TABLET EVERY 4 HOURS NEEDED FOR SPASMS Strength: 0.125 mg 540 tablet 01/18/2024 Active trimethobenzamide (Tigan) 300 MG capsule Take 1 (one) capsule by mouth every 8 hours as needed for Nausea/Vomiting 30 capsule 01/26/2024 Active levothyroxine (Synthroid) 175 MCG tablet Take 1 (one) tablet by mouth once daily Active diazePAM (Valium) 5 MG tablet Take 1 (one) tablet by mouth every 6 hours as needed Active ondansetron, disintegrating, (Zofran ODT) 8 MG tabletIndications :Nausea and Vomiting Take 1 (one) tablet by mouth every 8 hours as needed for Nausea/Vomiting Allow tablet to dissolve on the tongue Reasons: Nausea and Vomiting 15 tablet 2 02/17/2024 Active sucralfate (Carafate) 1 GM/10ML suspension TAKE 20 ML BY MOUTH 4 TIMES DAILY 7452 mL 3 05/18/2024 Active budesonide (Pulmicort) 0.5 MG/2ML nebulizer suspension INHALE THE CONTENTS OF 1 VIAL VIA NEBULIZER ONCE DAILY. RINSE AND SPIT AFTER USE 04/01/2024 Active esomeprazole (NexIUM) 40 MG capsule 07/18/2024 Active Trelegy Ellipta 200-62.5-25 MCG/ACT inhaler Inhale 1 (one) puff by mouth once daily 04/19/2024 Active fezolinetant (Veozah) 45 MG tablet Take 1 (one) tablet by mouth once daily 30 tablet 08/17/2024 Active Additional Information Patient not taking.Reason: Other, Reported on 01/04/2025 exemestane (Aromasin) 25 MG tablet TAKE 1 TABLET BY MOUTH ONCE DAILY 90 tablet 3 2024 Active desipramine (Norpramin) 10 MG tablet TAKE 1 AND 1/2 TABLETS BY MOUTH AT BEDTIME 135 tablet 3 08/30/2024 Active diphenoxylate-atr opine (Lomotil) 2.5-0.025 MG tabletIndications :Dysphagia, unspecified type,Adenomatous polyp of colon, unspecified part of colon,Diarrhea, unspecified type TAKE 1 TABLET BY MOUTH EVERY 3 HOURS NEEDED FOR DIARRHEA 90 tablet 4 09/06/2024 Active polyethylene glycol 3350 (Miralax) 17 GM/SCOOP powder Mix all of powder with 64oz liquid. Drink half of mixture at 5pm the night before colonoscopy. Finish at 4am the day of test 238 g 12/07/2024 01/04/20 25 Discontinu ed(Tx Complete) bisacodyl EC (Dulcolax) 5 MG tablet Take 4 tablets orally at noon the day before your colonoscopy 4 tablet 12/07/2024 01/04/20 25 Discontinu ed(Tx Complete) Active Problems Problem Noted Date Diagnosed Date Barnard's esophagus 04/19/2024 Diastolic dysfunction 04/19/2024 Osteopenia of multiple sites 10/14/2023 Acquired absence of both breasts 02/07/2021 Breast cancer, right 2019, stage 0 07/06/2020 Cancer Staging:Clinical stage from 09/28/2021:Stage 0(cTis (DCIS), cN0, cM0, G2, ER: Not Assessed, TX: Not Assessed, HER2: Not Assessed) - Signed by Meghana Zapata MD on 09/29/2021 Pathologic stage from 09/29/2021:Stage 0(pTis (DCIS), cN0, cM0, G2, ER: Not Assessed, TX: Not Assessed, HER2: Not Assessed) - Signed by Meghana Zapata MD on 09/29/2021 Overview (09/29/2021): Right, intermediate grade DCIS. Tis(DCIS)cN0M0. Stage 0. No markers done. S/p 07/06/2020 jose simple mastectomy/L SLN bx ([facility]): left with 8 mm grade 1/3 IDC (1,2,1), no LVI. Margin neg by 5 mm. 3 neg nodes on left. Right with intermediate grade DCIS-no markers done. Breast cancer, left, upper-o uter female, estrogen receptor positive 201906/12/2020 Cancer Staging:Clinical stage from 07/18/2020:Stage IA(cT1b, cN0, cM0, G1, ER+, TX+, HER2-) - Signed by Meghana Zapata MD on 09/29/2021 Pathologic stage from 07/18/2020:Stage IA(pT1b, pN0(sn), cM0, G1, ER+, TX+, HER2- ) - Signed by Meghana Zapata MD on 09/29/2021 Overview (09/29/2021): Left, upper outer, 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 ER pos 100% (strong), TX pos 100% (strong), Her-2 neg (0 on IHC), ki-67 10%. S/p 07/06/2020 jose simple mastectomy/L SLN bx ([facility]): left with 8 mm grade 1/3 IDC (1,2,1), no LVI. Margin neg by 5 mm. 3 neg nodes on left. Right with intermediate grade DCIS-no markers done. Last Assessment & Plan: Diagnosed with invasive ductal carcinoma in left breast in May 2020 based on an abnormal mammogram. Underwent bilateral mastectomy on July 06, 2020 since found to have CHEK 2 mutation. No lymph node involvement. Hormonal therapy recommended, but no radiation or chemotherapy. At risk for other malignancies due to this mutation. Follow-up with Dr. Arlin Pruitt Increased body mass index 06/05/2020 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/11/2019 Impaired mobility and ADLs 11/10/2019 Elevated blood pressure reading 11/10/2019 Juvenile osteochondrosis of second metatarsal Osteoarthrosis 11/10/2019 Acquired hypothyroidism 03/01/2019 Overview (10/08/2020): Last Assessment & Plan: I had a lengthy discussion Mrs. Pinzon about goal of treatment being normalize TSH and free T4. Low TSH with normal T4 Indicates thyroid hormone over replacement Risks of over replacement and includes cardiac arrhythmias e.g. AFib and also bone density loss e.g. Osteopenia or osteoporosis If there is a need to make changes, will recheck levels in 2-3 months. Instructions to patient on taking medication properly : in the morning, on an empty stomach , 1 h part from food and/or other meds. If any doses are missed, can take 2-3 tab together ,to make up for the missed dose; make sure at the end to the week, 7 tabs have been taken. Last Assessment & Plan: I had a lengthy discussion Mrs. Pinzon about goal of treatment being normalize TSH and free T4. Low TSH with normal T4 Indicates thyroid hormone over replacement Risks of over replacement and includes cardiac arrhythmias e.g. AFib and also bone density loss e.g. Osteopenia or osteoporosis If there is a need to make changes, will recheck levels in 2-3 months. Instructions to patient on taking medication properly : in the morning, on an empty stomach , 1 h part from food and/or other meds. If any doses are missed, can take 2-3 tab together ,to make up for the missed dose; make sure at the end to the week, 7 tabs have been taken. Osteopenia 03/01/2019 Overview (10/08/2020): Last Assessment & Plan: DEXA requested Adequate Ca and vitamin D intake was discussed. Vitamin D deficiency 03/01/2019 Overview (10/08/2020): Last Assessment & Plan: Check 25 OH vit D Adjust dose of Ergocalciferol accordingly Last Assessment & Plan: Check 25 OH vit D Adjust dose of Ergocalciferol accordingly Achalasia 02/22/2019 Abdominal cramping 02/22/2019 Neurogenic bladder 12/22/2018 Overview (10/08/2020): Last Assessment & Plan: Desipramine Tamsulosin Last Assessment & Plan: Desipramine Tamsulosin Neuromuscular dysfunction of bladder, unspecifie d 12/22/2018 Overview (08/17/2024): Last Assessment & Plan: Desipramine Tamsulosin Last Assessment & Plan: Desipramine Tamsulosin Last Assessment & Plan: Desipramine Tamsulosin Last Assessment & Plan: Desipramine 50 mg nightly Tamsulosin Hormone replacement therapy 09/29/2018 Skin abrasion 09/29/2018 Thyroid nodule 09/24/2018 Polypharmacy 08/18/2018 Emotional lability 08/18/2018 Peripheral edema 08/18/2018 Thyromegaly 08/18/2018 Asthma 08/18/2018 Urinary retention 08/18/2018 Intraductal papilloma of breast 07/23/2018 Spasm 07/23/2018 Atypical facial pain 05/19/2018 Intractable chronic migraine without aura and with status migrainosus 01/26/2018 Overview (03/27/2021): Last Assessment & Plan: Emgality continuation which has been helping Continue Botox injections Discontinue sumatriptan injections due to vasoconstriction risks. Tylenol #3 every 6 hours as needed. Last Assessment & Plan: Emgality continuation which has been helping Off Botox since November 2019 Sumatriptan 6 mg subcutaneously as needed. Risks discussed including vaso constriction. Ubrelvy discussed. Last Assessment & Plan: Emgality continuation which has been helping Off Botox since November 2019 Will try Nurtec. Risks discussed. If Nurtec effective, will discontinue sumatriptan 6 mg subcutaneously as needed. Risks discussed including vasoconstriction. Acute recurrent sinusitis 09/15/2017 Abnormal vision 04/07/2016 Overview (03/27/2021): Vision abnormality Vision abnormality Vertigo 04/07/2016 Overview (10/08/2020): Vertigo Esophageal spasm 12/17/2015 Fatigue 10/23/2015 Overview (10/08/2020): Other fatigue Chronic sinusitis 08/24/2015 Overview (03/27/2021): Overview: Chronic rhinosinusitis Chronic rhinosinusitis Posttraumatic stress disorder 08/24/2015 Overview (03/27/2021): Anxiety and depression Last Assessment & Plan: Continue following with Dr. 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 Prefers to continue her daily injection regimen rather than switching the thrice weekly. Due to breakthrough relapses, alternative treatment options were discussed with patient but she has very risk aversive. Since COVID-19 pandemic and newly diagnosed with breast cancer, continuing glatiramer acetate seems reasonable. She received her 1st Pfizer COVID-19 vaccine on January 29, 2021. Baclofen 30 mg 4 times a day. She understands she is on higher dose than recommended, but she has been on this regimen long-term. Methylphenidate 10 mg twice a day and amantadine 100 mg twice a day for fatigue. Patient understands there is increased risk of myocardial infarction and stroke on amphetamines, but had no benefit from Provigil. On vitamin D2 50,000 IU daily Patient strongly desires to continue Aricept which she reports helped her memory although Alzheimer's seems unlikely. Apparently she has had formal neuropsychological testing in the past. MRI of the brain and cervical spine status complete COVID-19 vaccination. She did not complete MRI imaging as ordered in April 2019 and well overdue as discussed with patient. Importance of MRI imaging to look for subclinical activity was discussed. FALGUNI (obstructive sleep apnea) 10/06/2000 Dysphagia Adenomatous polyp of colon History of colon polyps Gastric adenoma Resolved Problems Problem Noted Date Diagnosed Date Resolved Date Functional diarrhea 01/11/2020 04/24/20 21 Immunizations Name Administration Dates Next Due Carlie Morse primary monoval ent 12+ yr 0.3mL Purple cap 09/20/2021,02/26/2021,01/29/2021 FLU VACCINE TRI IIV3 SPLIT P F IM (FLUVIRIN) 11/07/2013 HEP B VACCINE, ADULT 3 DOSE 03/12/1998, 8 INFLUENZA A [id number] VACCINE 08/30/2013 INFLUENZA VACCINE 09/20/2021,10/13/2014 INFLUENZA VACCINE, HIGH-DOSE , QUADR. (FLUZONE HIGH-DOSE QUADRIVALENT; 65Y+), 0.7 ML (HD-IIV4) 08/26/2019,08/28/2018 INFLUENZA VACCINE, QUADR. (F LUZONE; FLULAVAL; FLUARIX; AFLURIA QUADRIVALENT; 6MO+), 0.5 ML (IIV4) 08/20/2020 SHANNAN VACCINE QUAD LAIV4 PF NASAL 09/07/2019,2016,09/04/2015 PNEUMOCOCCAL PPSV23 10/25/2019, 2,06/07/2007,2001 Pneumococcal Pcv13 Conj 09/09/2019,12/09/2017, TD VACCINE 03/12/2006 TDAP (7yrs+) 10/30/2012 ZOSTER VACCINE, LIVE 09/09/2013 Social History Tobacco Use Types Packs/Day Years Used Date Smoking Tobacco: Former Cigarettes 4 20 0 11/30/1970 - 11/30/1990 Smokeless Tobacco: Never Tobacco Cessation:Counseling Given: Not Answered Alcohol Use Standard Drinks/Week Comments No 0 (1 standard drink = 0.6 oz pur e alcohol) AUDIT-C Answer Date Recorded Q1: How often do you have a drink containing alcohol? Never 11/26/2022 Q2: How many drinks containi ng alcohol do you have on a typical day when you are drinking? Patient does not drink Q3: How often do you have si x or more drinks on one occasion? Never 11/26/2022 Overall Financial Resource Strain (CARDIA) Answe r Date Recorded How hard is it for you to pa y for the very basics like food, housing, medical care, and heating? Not hard at all 10/08/2020 Hunger Vital Sign Answer Date Recorded Within the past 12 months, y ou worried that your food would run out before you got the money to buy more. Never true 10/08/20 20 Within the past 12 months, t he food you bought just didn't last and you didn't have money to get more. Never true 10/08/2020 PRAPARE - Transportation Answer Date Re corded In the past 12 months, has l ack of transportation kept you from medical appointments or from getting medications? No 07/2020 In the past 12 months, has l ack of transportation kept you from meetings, work, or from getting things needed for daily living? No 10/08/2020 Education Answer Date Recorded What is the highest level of school you have completed or the highest degree you have received? Associate degree: occupational, technical, or vocational program 10/08/2020 Sex and Gender Information Value Date Recorded Sex Assigned at Not on file Gender Identity Not on file Sexual Orientation Not on file Last Filed Vital Signs Vital Sign Reading Time Taken Comments Blood Pressure 154/92 01/04/2025 11:30 AM BANQUET MANAGER Pulse 84 01/04/2025 11:30 AM BANQUET MANAGER Temperature 36.9 C (98.5 F) 01/04/2025 8:58 AM BANQUET MANAGER Respiratory Rate 26 01/04/2025 11:3 0 AM BANQUET MANAGER Oxygen Saturation 99% 01/04/2025 11: 30 AM BANQUET MANAGER Inhaled Oxygen Concentration 21% 07/06/2020 2 :25 PM CDT Weight 107.4 kg (236 lb 11.2 oz) 01/04/2025 8:58 AM BANQUET MANAGER Height 160 cm (5' 3 ) 01/04/2025 8:58 AM BANQUET MANAGER Body Mass Index 41.93 01/04/2025 8:58 AM BANQUET MANAGER Functional Status Functional Status Response Date of Assess ment Is person deaf or have serious hearing difficult y? No 01/04/2025 Is person blind or have serious difficulty seein g? No 01/04/2025 Does person have serious dif ficulty walking/climbing stairs? No 01/04/2025 Does person have difficulty dressing/bathing? No 01/04/2025 Does person have difficulty doing errands alone? No 01/04/2025 Cognitive Status Response Date of Assessm ent Does person have difficulty concentrating/remembering/making decisions? No 01/04/2025 Plan of Treatment Upcoming Encounters Date Type Department Care Team (Late st Contact Info) Description 02/08/2025 10:30 AM CDT Office Visit [facility] - GI [address] [place] [phone] Isai Leon MD [address] [place] [phone] 08/21/2025 11:30 AM CDT Office Visit [facility] - General Surgery [address] [place] [address] Bebe Faulkner MD [address] [place] [address] Goals Goal Patient Goal Type Associated Problems Recent Progress Patient-Stated? Author Safety General On track( 024 2:13 PM BANQUET MANAGER) No Ml Livingston, KIERA Note: Expected end date: Ongoing Interventions: Your nurse will assess your risk for falls/injury each visit Use appropriate and safe transfer methods Medication Management General On track( 024 2:13 PM BANQUET MANAGER) No Ml Livingston, KIERA Note: Expected end date: Ongoing Interventions: Take all medications as prescribed Let your doctor know right away about any changes in your medications Medical Devices Implanted Type Area Lead Injection Mold Technician Device Identifier Shelf Expiration Date Model / Serial / Lot Mrkr [employer] Brst[employer] Celero Sys Implanted:Qty: 1 on 06/12/2020 by Maddie Dixon MD at [facility] 10/05/2020 [id number] / / [id number] Description:titanium biopsy marker Procedures Procedure Name Priority Date/Time Associated Diagnosis Comments ENDOSCOPY, COLON, SCREENING Routine 01/04/2025 10:16 AM BANQUET MANAGER PATHOLOGY TISSUE Routine 01/04/2025 10:1 4 AM BANQUET MANAGER 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 EGD Routine 01/04/2025 9:12 AM BANQUET MANAGER COMPREHENSIVE METABOLIC PANEL Routine 08/17/2024 9:56 AM CDT Malignant neoplasm of upper-outer quadrant of left breast in female, estrogen receptor positive (HCC) MAMMO BILAT DIAGNOSTIC Routine 9:10 AM CDT 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 Increased risk of breast cancer from Last 3 Months or Most Recently Relevant to Health Maintenance Results * ENDOSCOPY, COLON, SCREENING (01/04/2025 10:16 AM BANQUET MANAGER) Report Endoscopy POC Endoscopy Department Report _ Patient Name: Eugenia Pinzon Procedure Date: 01/04/2025 10:16 AM Date of : 1960 Classification: Outpatient Gender: Female Ethnicity: Not or Race: White _ Providers: Janeth Foreman (Labundy)MD, Rebel Perez (Fellow) Referring MD: Procedure: Colonoscopy Indications: High risk colon cancer surveillance. History of CHEK2 mutation: Personal history of adenomatous colonic polyps. Last colonoscopy 06/2024. Medications: Monitored Anesthesia Care Description of Procedure: Pre-Anesthesia Assessment: - Prior to the procedure, a History and Physical was performed, and patient medications and allergies were reviewed. The patient's tolerance of previous anesthesia was also reviewed. The risks and benefits of the procedure and the sedation options and risks were discussed with the patient. All questions were answered, and informed consent was obtained. Prior Anticoagulants: The patient has taken no anticoagulant or antiplatelet agents. ASA Grade Assessment: III - A patient with severe systemic disease. After reviewing the risks and benefits, the patient was deemed in satisfactory condition to undergo the procedure. After I obtained informed consent, the scope was passed under direct vision. Throughout the procedure, the patient's blood pressure, pulse, and oxygen saturations were monitored continuously. The Colonoscope was introduced through the anus and advanced to the cecum, identified by appendiceal orifice and ileocecal valve. The colonoscopy was performed without difficulty. The patient tolerated the procedure well. The quality of the bowel preparation was evaluated using the BBPS ([place] Bowel Preparation Scale) with scores of: Right Colon = 3 (entire mucosa seen well with no residual staining, small fragments of stool or opaque liquid), Transverse Colon = 3 (entire mucosa seen well with no residual staining, small fragments of stool or opaque liquid) and Left Colon = 2 (minor amount of residual staining, small fragments of stool and/or opaque liquid, but mucosa seen well). The total BBPS score equals 8. The quality of the bowel preparation was good. The ileocecal valve, appendiceal orifice, and rectum were photographed. Findings: The perianal and digital rectal examinations were normal. Multiple small and large-mouthed diverticula were found in the left colon. Otherwise, the entire examined colon appeared normal on direct and retroflexion views. Biopsies for histology were taken with a cold forceps from the right colon for evaluation of microscopic colitis, given patient's complaint of diarrhea. Estimated Blood Loss: Estimated blood loss: none. Complications: No immediate complications. Impression: - Diverticulosis in the left colon. - The entire examined colon is normal on direct and retroflexion views. - Biopsies were taken with a cold forceps from the right colon for evaluation of microscopic colitis. Recommendation: - Discharge patient to home. - Resume previous diet. - Continue present medications. - Await pathology results. - Repeat colonoscopy in 1 year for surveillance. - Patient has a contact number available for emergencies. The signs and symptoms of potential delayed complications were discussed with the patient. Return to normal activities tomorrow. Written discharge instructions were provided to the patient. Attending Participation: I was present and participated during the entire procedure, including non-young portions. Procedure Code(s): --- Professional --- 61142, Colonoscopy, flexible; with biopsy, single or multiple Diagnosis Code(s): --- Professional --- Z86.010, Personal history of colonic polyps K57.30, Diverticulosis of large intestine without perforation or abscess without bleeding CPT copyright 2021 [employer]. All rights reserved. The codes documented in this report are preliminary and upon public finance specialist review may be revised to meet current compliance requirements. [facility]eth [facility]MD breanne 01/04/2025 10:58:05 AM Note Initiated On: 01/04/2025 10:16 AM Number of Addenda: [address] PROVATION 01/04/2025 10:1 6 AM BANQUET MANAGER Janeth Foreman MD [facility] PROVATION * PATHOLOGY TISSUE (01/04/2025 10:14 AM BANQUET MANAGER) Case Report Surgical Pathology Report Case: [id number] Authorizing Provider: Janeth Foreman MD Collected: 01/04/2025 10:14 AM Ordering Location: [facility] ENDOSCOPY Received: 01/04/2025 12:42 PM Pathologist: Toya Canales MD Specimens: A) - Polyp Gastric, gastric polyps B) - Colon, random colon bx 01/05/2025 12:43 PM BANQUET MANAGER [facility] Final Diagnosis Stomach, gastric polyps, biopsy (A): - Fundic gland polyps - No dysplasia Large intestine, random colon, biopsy (B): - No histopathologic abnormality - No lymphocytic or collagenous colitis 01/05/2025 12:43 PM BANQUET MANAGER [facility] Microscopic Description and Comment Microscopic examination substantiates the final diagnosis. 01/05/2025 12:43 PM [facility] Clinical History The patient is a 64-year-old woman with dysphagia who presents for follow-up of gastric polyps and high risk colon cancer surveillance; history of CHEK2 mutation and prior gastric adenomatous polyps. Operative procedure/findings: EGD - few gastric polyps, resected and retrieved. Colonoscopy - normal colon, biopsy to rule out microscopic colitis. 01/05/2025 12:43 PM [facility] Gross Description The requisition and specimen(s) are identified with the patient's name Eugenia Pinzon . Received in formalin, specimen A , consists of two 0.4 x 0.3 x 0.3 cm malik-white tissue fragments, submitted in toto in cassette A1. Received in formalin, specimen B , consists of multiple malik-white tissue fragments, 0.2-0.3 cm, 0.8 x 0.5 x 0.2 cm in aggregate, submitted in toto in cassette B1. LT 01/05/2025 12:43 PM [facility] Pathologist Location at [facility] 01/05/2025 12:43 PM [facility] Disclaimer The performance characteristics of all immunohistochemical and indirect immunofluorescence stains (if any) cited in this report were determined by the Histopathology Laboratory of [facility]. Some of these tests were developed by our own laboratory and have not been cleared or approved by the US Food and Drug Administration. The FDA does not require this test to go through premarket FDA review. These tests are used for clinical purposes. They should not be regarded as investigational or for research. This laboratory is certified under the Clinical Laboratory Improvement Amendments (CLIA) as qualified to perform high complexity clinical laboratory testing. This case has been personally reviewed and interpreted by the attending (teaching) pathologist. 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 [Z15.01, Z15.89, Z15.09, Z15.02] Janeth Foreman MD LAB - PATHOLOGY/C YTOLOGY ORDERABLES Performing Organization Address City/State/[facility] Co de Phone Number [facility] [address] [phone] * EGD (01/04/2025 9:12 AM BANQUET MANAGER) Report Endoscopy POC Endoscopy Department Report __ _ Patient Name: Eugenia Pinzon Procedure Date: 01/04/2025 9:12 AM Date of : 1960 Classification: Outpatient Gender: Female Ethnicity: Not or Race: White __ _ Providers: Janeth Foreman (Labundy)MD, Rebel Perez (Fellow) Referring MD: Procedure: Upper GI endoscopy Indications: Dysphagia, Follow-up of gastric polyps. History of CHEK2 mutation; prior gastric adenomatous polyps Medications: Monitored Anesthesia Care Description of Procedure: Pre-Anesthesia Assessment: - Prior to the procedure, a History and Physical was performed, and patient medications and allergies were reviewed. The patient's tolerance of previous anesthesia was also reviewed. The risks and benefits of the procedure and the sedation options and risks were discussed with the patient. All questions were answered, and informed consent was obtained. Prior Anticoagulants: The patient has taken no anticoagulant or antiplatelet agents. ASA Grade Assessment: III - A patient with severe systemic disease. After reviewing the risks and benefits, the patient was deemed in satisfactory condition to undergo the procedure. After obtaining informed consent, the endoscope was passed under direct vision. Throughout the procedure, the patient's blood pressure, pulse, and oxygen saturations were monitored continuously. The Endoscope was introduced through the mouth, and advanced to the third part of duodenum. The upper GI endoscopy was accomplished without difficulty. The patient tolerated the procedure well. Findings: Esophagogastric landmarks were identified: the Z-line was found at 40 cm, the gastroesophageal junction was found at 40 cm and the site of hiatal narrowing was found at 40 cm from the incisors. The esophagus was normal. The esophagus and GE junction were patent. A TTS dilator was passed through the scope. Dilation with an 18-19-20 mm x 8 cm CRE balloon dilator was performed to 20 mm at the gastroesophageal junction. Post-dilation inspection revealed no mucosal tear or heme. A few 2 to 3 mm sessile polyps were found in the gastric body. Two polyps were removed with a jumbo cold forceps. Resection and retrieval were complete. Striped mildly erythematous mucosa without bleeding was found in the gastric antrum. This has been previously biopsied. The cardia and gastric fundus were normal on retroflexion. The examined duodenum was normal. Estimated Blood Loss: Estimated blood loss: none. Complications: No immediate complications. Impression: - Esophagogastric landmarks identified. - Normal esophagus. - A few gastric polyps. Resected and retrieved. - Erythematous mucosa in the antrum. - Normal examined duodenum. - Balloon dilation performed at the gastroesophageal junction to 20 mm. Recommendation: - Await pathology results. - Perform a colonoscopy today. - Repeat upper endoscopy in 1 year for surveillance of multiple polyps. Attending Participation: I was present and participated during the entire procedure, including non-young portions. Procedure Code(s): --- Professional --- 08472, Esophagogastroduode noscopy, flexible, transoral; with transendoscopic balloon dilation of esophagus (less than 30 mm diameter) Diagnosis Code(s): --- Professional --- K31.7, Polyp of stomach and duodenum K31.89, Other diseases of stomach and duodenum R13.10, Dysphagia, unspecified CPT copyright 2021 [employer]. All rights reserved. The codes documented in this report are preliminary and upon public finance specialist review may be revised to meet current compliance requirements. Janeth Foreman MD (Labundy) 01/04/2025 10:24:09 AM Note Initiated On: 01/04/2025 9:12 AM Number of Addenda: 0 [facility] [address] [place] [address] PROVATION 01/04/2025 9:12 AM BANQUET MANAGER Janeth Foreman MD GI PROCEDURE ORDLeonel GUARDADO [facility] PROVATION * (ABNORMAL) COMPREHENSIVE METABOLIC PANEL (08/17/2024 9:[address] [facility]) BUN 8 7 - 26 mg/dL 08/17/2024 10:45 AM [facility] Creatinine 0.78 0.56 - 0.96 mg/dL 08/17/2024 10:45 AM [facility] Sodium 139 136 - 145 mmol/L 08/17/2024 10:45 AM [facility] Potassium 4.6(H) 3.5 - 4.5 mmol/L 08/17/2024 10:45 AM [facility] [facility] Chloride 110(H) 98 - 107 mmol/L 08/17/2024 10:45 AM [facility] CO2 27 22 - 29 mmol/L 08/17/2024 10:45 AM [facility] Glucose 81 70 - 115 mg/dL 08/17/2024 10:45 AM [facility] Calcium 9.4 8.4 - 10.2 mg/dL 08/17/2024 10:45 AM [facility] Protein Total 7.0 6.0 - 8.3 g/dL 08/17/2024 10:45 AM [facility] Albumin 3.5 3.4 - 5.0 g/dL 08/17/2024 10:45 AM [facility] Bilirubin Total 0.4 0.2 - 1.2 mg/dL 08/17/2024 10:45 AM [facility] Alkaline Phosphatase 126 40 - 150 U/L 08/17/2024 10:45 AM [facility] ALT 23 5 - 55 U/L 08/17/2024 10:45 AM [facility] AST 16 5 - 34 U/L 08/17/2024 10:45 AM [facility] Anion Gap 2(L) 6 - 16 08/17/2024 10:45 AM [facility] BUN/Creatinine Ratio 10 7 - 23 08/17/2024 10:45 AM [facility] Osmolality Calculated 285 275 - 295 mOsm/kg 08/17/2024 10:45 AM [facility] Albumin/Globulin Ratio 1.0(L) 1.1 - 2.3 08/17/2024 10:45 AM [facility] eGFR by CKD-EPI 84(L) >=90 mL/min/1.7 3 m2 08/17/2024 10:45 AM [facility] Blood BLOOD SPECIMEN / Unknown Venipuncture / Unknown 08/17/2024 9:56 AM CDT 08/17/2024 10:16 AM CDT Zuly Miller MD LAB - CHEMISTRY [facility] Organization Address City/State/[facility] Co de Phone Number [facility] [address] [place] [address], [facility] [phone] * (ABNORMAL) MAMMO BILAT DIAGNOSTIC (06/07/2020 9:10 AM CDT) Anatomical Region Laterality Modality Breast Bilateral Mammography 06/07/2020 9:20 AM CDT Impressions 06/07/2020 10:42 AM CDT IMPRESSION: Irregular mass with distortion in the upper outer left breast is highly suspicious for malignancy ASSESSMENT: BI-RADS Category 5: Highly suggestive of malignancy - appropriate action should be taken. RECOMMENDATION: Ultrasound-guided biopsy left breast Patient was informed of these findings and recommendations by Dr. Salvador This report was electronically signed by ISAURA SALVADOR M.D. on 06/07/2020 10:42 AM . Narrative 06/07/2020 10:42 AM CDT BILATERAL DIAGNOSTIC MAMMOGRAM and Limited left breast ultrasound DATE: 06/07/2020. COMPARISON: Multiple prior mammograms, most recently 2019 [facility] HISTORY: 59-year-old female with CHEK 2 mutation presents for annual mammography. She is status post bilateral benign biopsies TECHNIQUE: The breasts were imaged in the cranial caudal and medial lateral oblique views using reconstructed/synthetic 2D and 3D tomosynthesis, and CAD analysis. BREAST COMPOSITION: The breasts are heterogeneously dense, which may obscure small masses. FINDINGS: There is no suspicious mass, clustered microcalcification, or architectural distortion in the right breast. There is an irregular mass with architectural distortion in the upper outer left breast posterior depth. Ribbon shaped tissue marker lies approximately 2.5 cm inferior and lateral to the mass. Limited ultrasound of the left upper outer quadrant and axilla demonstrates an irregular mixed echogenicity mass in the 1:00 position 8 cm from the nipple measuring 9 x 7 x 7 mm with architectural distortion. It has increased slightly in size when compared to [facility] imaging ultrasound 08/01/2016. There is no axillary adenopathy. Jennifer Roy MD MAMMO ORDERABLES from Last 3 Months or Most Recently Relevant to Health Maintenance Advance Directives * Full Code (Latest Code Status on File) Date Activated Date Inactivated Comments 09/09/2018 6:14 PM 09/10/2018 6:28 PM Care Teams Professional Bass Fisherman Relationship Specialty Start Date End Date oRd Buckner PA-C [address] [facility] [address] [place] [address] PCP - General 02/18/19 Zuly Miller MD [address] [address] Hematology and Oncology 02/17/24
--- OUTSIDE RECORDS SUMMARY | 2025-01-06 11:41 | XMS_ITS | Clinical Summary ---
Author Organization [facility] Address [address] [place] [address] Phone Care Team Providers Care Entry Level Electrical Engineer Name Role Phone Sunil Mayen DO Primary Care Provider [phone] Allergies Active Allergy Reactions Criticality Noted Date Comments Allyl Isothiocyanate Nausea And Vomiting,Unknown Low 02/04/2017 Amphetamine Low 06/12/2015 Other reaction(s): Unknown Amphetamine-Dextroampheta mine Palpitations Medium 01/28/2017 Other reaction(s): Other (see Comments) Heart palipations Armodafinil Unknown High 06/12/2015 Other reaction(s): Neuropathy Aspartame Other (see comments) Medium 06/18/2018 Other reaction(s): Other Abdominal pain Abdominal pain Bacitracin Low 02/11/2019 Other reaction(s): Unknown [place] Oil Nausea And Vomiting Medium 11/10/2011 Other reaction(s): Nausea And Vomiting, Unknown, Unknown Cefuroxime Rash,Unknown Medium 11/30/2009 Other reaction(s): Unknown Coconut (Cocos Nucifera) Nausea And Vomiting Low Other reaction(s): Nausea And Vomiting, Unknown Dextroamphetamine Palpitations Medium 06/12/2015 Diphenhydramine Palpitations Medium 01/28/2017 Ergot Alkaloids Rash,Unknown Medium 09/09/2018 Erythromycin Rash,Unknown,Hives Medium 03/08/2012 Gabapentin Medium 03/08/2012 Other reaction(s): Mental status changes, Psychiatric, Unknown, Unknown Latex Rash,Unknown,Hives Medium 03/08/2012 SENSITIVITY TO LATEX SENSITIVITY TO LATEX Liver Nausea And Vomiting Low 02/04/2017 Other reaction(s): Nausea And Vomiting Meperidine Nausea And Vomiting,Unknown High 03/08/2012 Other reaction(s): Nausea And Vomiting, Unknown Metoclopramide Nausea And Vomiting High 03/08/2012 Other reaction(s): Nausea And Vomiting, Unknown, Unknown Metronidazole Rash High 11/30/2009 Other reaction(s): Unknown, Unknown Nalbuphine Rash,Unknown Medium 11/10/2011 Other reaction(s): Unknown Neomycin Medium 06/12/2015 Other reaction(s): Unknown Nitrates, Organic Low 08/10/2019 Other reaction(s): Unknown Nitrofurantoin Rash Medium 11/30/2009 Other reaction(s): Unknown, Unknown, Unknown Nystatin Rash High 01/28/2017 Other reaction(s): Unknown Oxcarbazepine Hives,Swelling Medium 03/01/2019 Tongue swelling and hives Tongue swelling and hives Penicillins Anaphylaxis,Rash,Hi ves High 03/08/2012 Pentazocine Nausea And Vomiting,Unknown High 11/30/2009 Other reaction(s): Nausea And Vomiting, Unknown Povidone Iodine Low 09/24/2018 Other reaction(s): Unknown Rosuvastatin High 11/30/2009 Other reaction(s): Ototoxicity Silver Nitrate Rash High 03/08/2012 Other reaction(s): Unknown, Unknown Spinach Nausea And Vomiting Low 02/04/2017 Other reaction(s): Nausea And Vomiting Medications Medication Sig Dispensed Refills Start Date End Date Status cromolyn (INTAL) 20 MG/2ML nebulizer solution 07/23/2018 Active desipramine (NOPRAMIN) 10 MG tablet TAKE ONE AND ONE-HALF TABLETS AT BEDTIME (DISREGARD PRIOR ORDER OF 10 MG NIGHTLY) 07/14/2018 Active dilTIAZem CD (CARDIZEM CD) 120 MG 24 hr capsule Take 120 mg by mouth daily Active diphenoxylate-atr opine (LOMOTIL) 2.5-0.025 MG per tablet TAKE 2 TABLETS BY MOUTH 4 TIMES DAILY NEEDED FOR DIARRHEA 5 08/19/2019 Active donepezil (ARICEPT) 10 MG tablet Take 10 mg by mouth Activ e esomeprazole (NexIUM) [address] capsule Take 40 mg by mouth Activ e EMGALITY 120 MG/ML solution auto-injector INJECT CONTENTS OF 1 PEN (120 MG) UNDER THE SKIN EVERY 30 DAYS 5 10/29/2019 Active glatiramer (COPAXONE,GLATOPA ) 20 MG/ML solution prefilled syringe Inject 20 mg under the skin daily 07/20/2018 Active levothyroxine (SYNTHROID, LEVOTHROID) 175 MCG tablet Take 175 mcg by mouth 1 (one) time each day 1 09/19/2019 Active methylphenidate CD (METADATE CD) 20 MG CR capsule 0 10/19/2019 Active mupirocin (BACTROBAN) 2 % ointment Apply topically Active pravastatin (PRAVACHOL) 40 MG tablet Take 40 mg by mouth Activ e raNITIdine (ZANTAC) 150 MG capsule Take 150 mg by mouth 2 (two) times a day 11 08/13/2019 Active tamsulosin (FLOMAX) 0.4 MG 24 hr capsule Take 0.4 mg by mouth daily Active STIOLTO RESPIMAT 2.5-2.5 MCG/ACT aerosol solution inhaler INL 2 PFS PO Q DAY. RM AFTER U 3 10/21/2019 Active ergocalciferol (VITAMIN D2) 1.25 MG (39921 UT) capsule 11/14/2019 Active VIVELLE-DOT 0.1 MG/24HR 01/07/2020 Active fluticasone (CUTIVATE) 0.005 % ointment 11/10/2019 Active montelukast (SINGULAIR) 10 MG tablet 01/05/2020 Active CARAFATE 1 GM/10ML suspension 12/23/2019 Active SUMAtriptan (IMITRIX) 6 MG/0.5ML injection 11/29/2019 Active triamcinolone (KENALOG) 0.1 % cream 12/20/2019 Active amantadine (SYMMETREL) 100 MG capsule 01/14/2021 Active fluticasone (FLONASE) 50 MCG/ACT nasal spray 01/25/2021 Active hyoscyamine (LEVSIN) 0.125 MG SL tablet TAKE 1 TABLET EVERY 6 HOURS NEEDED FOR SPASMS 12/18/2020 Active Spacer/Aero-Holdi ng Chambers ([facility]) [facility] [place] administration instructions 01/14/2021 Active albuterol (2.5 MG/3ML) 0.083% nebulizer solution Use 1 vial via nebulizer 4 times daily as needed. 10/02/2020 Active albuterol HFA (Ventolin HFA) 108 (90 Base) MCG/ACT inhaler USE 2 INHALATIONS EVERY 4 TO 6 HOURS NEEDED 01/16/2021 Active Proctosol HC 2.5 % cream 12/28/2020 Active nitroglycerin (NITROSTAT) 0.4 MG SL tablet 0.4 mg 09/22/2012 Active furosemide (LASIX) 40 MG tablet Take 1 tablet (40 mg total) by mouth 2 (two) times a day 180 tablet 3 02/07/2021 Active baclofen (LIORESAL) 10 MG tablet 11/06/2021 Active Qvar RediHaler 80 MCG/ACT aerosol INHALE 2 PUFFS BY MOUTH EVERY 12 HOURS WITH THE SPACER 11/04/2021 Active DULCOLAX 5 MG EC tablet TAKE 2 TABLETS AT NOON THE DAY BEFORE YOUR COLONOSCOPY & 2 AT 1PM THE DAY BEFORE YOUR COLONOSCOPY 12/19/2021 Active cetirizine (ZyrTEC) 10 MG tablet Take 10 mg by mouth 1 (one) time each day 01/10/2022 Active polyethylene glycol (GLYCOLAX) 17 GM/SCOOP powder PLEASE SEE ATTACHED FOR DETAILED DIRECTIONS 12/19/2021 Active predniSONE (DELTASONE) 20 MG tablet Take 20 mg by mouth 2 (two) times a day 01/17/2022 Active Active Problems Problem Noted Date Diagnosed Date History of malignant neoplasm of breast 03/14/20 21 Bilateral acquired absence of breast 02/07/2021 Malignant tumor of breast 02/07/2021 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 Osteopenia 03/01/2019 Overview (11/13/2019): Last Assessment & Plan: DEXA requested Adequate Ca and vitamin D intake was discussed. Vitamin D deficiency 03/01/2019 Overview (11/13/2019): Last Assessment & Plan: Check 25 OH vit D Adjust dose of Ergocalciferol accordingly Achalasia 02/22/2019 Finding of sensation of abdomen 02/22/2019 Neurogenic urinary bladder 12/22/2018 Overview (11/13/2019): Last Assessment & Plan: Desipramine Tamsulosin Hormone replacement therapy 09/29/2018 Thyroid nodule 09/24/2018 Emotional lability 08/18/2018 Goiter 08/18/2018 Peripheral edema 08/18/2018 Polypharmacy 08/18/2018 Retention of urine 08/18/2018 Duct papilloma of breast 07/23/2018 Spasm 07/23/2018 Atypical facial pain 05/19/2018 Refractory migraine without aura 01/26/2018 Overview (11/13/2019): Last Assessment & Plan: Emgality continuation which has been helping Continue Botox injections Discontinue sumatriptan injections due to vasoconstriction risks. Tylenol #3 every 6 hours as needed. Obesity 09/15/2017 Recurrent acute sinusitis 09/15/2017 Abnormal vision 04/07/2016 Overview (11/13/2019): Vision abnormality Vertigo 04/07/2016 Overview (11/13/2019): Vertigo Esophageal dysmotility 12/17/2015 Fatigue 10/23/2015 Overview (11/13/2019): Other fatigue Chronic sinusitis 08/24/2015 Overview (11/13/2019): Chronic rhinosinusitis Chronic rhinosinusitis Hypersomnia 08/24/2015 Overview (11/13/2019): Hypersomnia due to medical condition Posttraumatic stress disorder 08/24/2015 Overview (11/13/2019): Anxiety and depression PTSD (post-traumatic stress disorder) Multiple sclerosis 08/24/2015 Overview (11/13/2019): Multiple sclerosis Last Assessment & Plan: On glatiramer acetate 20 mg daily subcutaneous injections. Due to breakthrough relapses, discussed alternative treatment options including Tysabri, Tecfidera and Aubagio including relative efficacies and risks. Risks and benefits of Tysabri discussed including serious infusion reaction, hepatotoxicity, serious infection including PML, and even . Risks and benefits of Tecfidera discussed including flushing, n/v/d, hepatotoxicity, harm, low white blood cell count, and serious infection including PML. Risks and benefits of Aubagio discussed including low white count/potential serious infection, hypertension, hepatotoxicity, alopecia and diarrhea. Patient reluctant to start Tysabri despite being LEON virus antibody negative due to PML risks. Patient also declined to switch glatiramer acetate to 40 mg 3 times a week preferring her longstanding regimen. Baclofen Ritalin and amantadine for fatigue. Patient understands there is increased risk of myocardial infarction and stroke on amphetamines, but had no benefit from Provigil and wants to continue Ritalin. 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 09/10/2011 Edema 09/10/2011 Essential (primary) hypertension 09/10/2011 Heart failure 09/10/2011 Tobacco dependence syndrome 09/10/2011 Obstructive sleep apnea syndrome 10/06/2000 Overview (11/13/2019): Asthma Obstructive sleep apnea hypopnea, severe Immunizations Name Administration Dates Next Due H1N1 All Forms 08/30/2013 Hepatitis B 03/12/1998,01/15/1998 Influenza (IM) Preservative Free 11/07/2013 Influenza Split High Dose Pr eservative Free IM 08/26/2019,08/28/2018 Influenza, Injectable, Quadrivalent 09/07/2019 Influenza, Injectable, Quadr ivalent, Preservative Free 08/20/2020 Influenza, Quadrivalent 09/07/2019,09/23/2017, Influenza, Unspecified 10/13/2014 Pfizer Sars-cov-2 Vaccination 09/20/2021, 021,01/29/2021 Pneumococcal Conjugate 13-Valent 09/09/2019,11/30,07/25/2015 Pneumococcal Polysaccharide 10/25/2019,1 01/10/2012,06/07/2007,06/21 Td, Not Adsorbed 03/12/2006 Tdap 11/09/2012 Zoster 09/09/2013 Family History Medical History Relation Comments Lung cancer Father Breast cancer Mother Lung cancer Mother Relation Status Comments Father Mother Social History Tobacco Use Types Packs/Day Years Used Date Smoking Tobacco: Never Smokeless Tobacco: Never Alcohol Use Standard Drinks/Week Comments Not Currently 0 (1 standard drink = 0.6 oz pur e alcohol) Sex and Gender Information Value Date Recorded Sex Assigned at Not on file Gender Identity Not on file Sexual Orientation Not on file Last Filed Vital Signs Vital Sign Reading Time Taken Comments Blood Pressure 136/72 02/05/2022 10:13 AM HEMATOLOGIST ONCOLOGIST Pulse - - Temperature 36.2 C (97.2 F) 02/05/2022 10:13 AM HEMATOLOGIST ONCOLOGIST Respiratory Rate 18 02/05/2022 10:13 AM HEMATOLOGIST ONCOLOGIST Oxygen Saturation - - Inhaled Oxygen Concentration - - Weight 113 kg (249 lb) 02/05/2022 10:13 AM HEMATOLOGIST ONCOLOGIST Height 160 cm (5' 3 ) 02/05/2022 10:13 AM HEMATOLOGIST ONCOLOGIST Body Mass Index 44.11 02/05/2022 10:13 AM HEMATOLOGIST ONCOLOGIST Plan of Treatment Health Maintenance Due Date Last Done Comments COVID-19 Vaccine (4 - 2022-2 4 season) 2024 09/20/2021, 02/26/2021, 01/29/2021 Influenza Vaccine (#1) 2024 0, 10/13/2014, 11/07/2013 Pneumococcal PPSV23/PCV13 65 + Years / High and Highest Risk (4 of 4 - PPSV23 or PCV20) 10/25/2024 10/25/2019, 09/09/2019, 12/09/2017, Additional history exists Care Teams Entry Level Electrical Engineer Relationship Specialty Start Date End Date Sunil Mayen DO [address] [facility] [address] [place] [address] PCP - General Internal Medicine 09/27/19
--- OUTSIDE RECORDS SUMMARY | 2025-01-06 11:41 | XMS_ITS | Encounter Summary ---
Author Organization [facility] Address [address] [place] [address] Phone Care Team Providers Care Oracle Business Analyst Name Role Phone Rod Buckner Primary Care Provider Gail Wyatt MD Unavailable [phone] Encounter Details Date Type Department Care Team (Late st Contact Info) Description 05/08/2021 Telephone [facility] Oncology [address] [facility] Advanced Medicine 7th [place] [address] [place] [address] Eileen Garcia Social History Tobacco Use Types Packs/Day Years Used Date Smoking Tobacco: Former Smokeless Tobacco: Former Alcohol Use Standard Drinks/Week Comments No 0 (1 standard drink = 0.6 oz pur e alcohol) PHQ-2 Answer Date Recorded PHQ-2 Score 0 07/22/2019 Comments Unknown Sex and Gender Information Value Date Recorded Sex Assigned at Not on file Legal Sex 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
--- OUTSIDE RECORDS SUMMARY | 2025-01-06 11:42 | XMS_ITS | Patient Health Summary ---
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 This disclosure is being madepursuant to the Care Everywhere program and may not contain all information available regarding this patient. Last updated 18.[facility] Allergies * Amphetamine-Dextroamphetamine(Palpitations) -Medium Criticality * Adhesive Sensitivity(Rash) -Medium Criticality * Allergy(Palpitations) -Medium Criticality * Dermolin(Nausea and/or Vomiting) -Low Criticality * Allyl Isothiocyanate(Nausea and/or Vomiting) -Low Criticality * Dgpdohwg-Shjcjntyt-Klbhxxwzh(Rash) -Medium Criticality * Armodafinil(Unknown) -High Criticality * Bacitracin(Unknown) -Low Criticality * [place] Oil(Nausea and/or Vomiting,Unknown) -Medium Criticality * Cefuroxime(Rash,Unknown) -Medium Criticality * Coconut Oil(Nausea and/or Vomiting,Unknown) -Low Criticality * Meperidine(Nausea and/or Vomiting) -Medium Criticality * Dextroamphetamine(Palpitations) -Medium Criticality * Diphenhydramine(Palpitations) -Medium Criticality * Ergot Alkaloids(Rash) -Medium Criticality * Ergot Alkaloids(Rash) -Medium Criticality * Ergotamine(Unknown) -Medium Criticality * Erythromycin(Rash) -Medium Criticality * Eye Drops(Other) -Low Criticality * Latex(Rash,Unknown) -Medium Criticality * Liver(Nausea and/or Vomiting) -Low Criticality * Metronidazole(Rash,Unknown) -Medium Criticality * Nalbuphine(Rash,Unknown) -Medium Criticality * Neomycin(Unknown) -Medium Criticality * Gabapentin(Psychiatric) -Medium Criticality * Organic Nitrates(Unknown) -Low Criticality * Nitrofurantoin(Rash,Unknown) -Medium Criticality * Aspartame(Other) -Medium Criticality * Armodafinil(Neuropathy) -High Criticality * Nystatin(Rash,Unknown) -Medium Criticality * Oxcarbazepine(Swelling,Urticaria) -Medium Criticality * Penicillins(Rash) -Medium Criticality * Pentazocine(Nausea and/or Vomiting,Unknown) -Medium Criticality * Povidone Iodine(Unknown) -Low Criticality * Metoclopramide(Nausea and/or Vomiting) -Low Criticality * Rosuvastatin(Ototoxicity) -High Criticality * Silver Nitrate(Rash) -Medium Criticality * Skin Adhesives(Rash) -Medium Criticality * Spinach(Nausea and/or Vomiting) -Low Criticality Medications * Be aware that medications may not be up to date on this document. Alwaysverify current medications with the patient. * baclofen (LIORESAL) 10 MG tablet Take 3 (three) tablets by mouth 4 times daily May cause drowsiness. * dilTIAZem coated beads 24hr (CARDIZEM CD) 120 MG capsule Take 1 (one) capsule by mouth once daily Do not crush or chew. * glatiramer (COPAXONE) 20 MG/ML prefilled syringe Inject 1 mL subcutaneously once daily * fluticasone propionate (FLONASE) 50 MCG/ACT nasal spray [place] 1 (one) spray into each nostril 2 times daily * Tiotropium [place]-Olodaterol 2.5-2.5 MCG/ACT Inhale 1 puff by mouth 2 times daily * amantadine (SYMMETREL) 100 MG capsule Take by mouth 2 times daily * donepezil (ARICEPT) 10 MG tablet Take 1 (one) tablet by mouth at bedtime * montelukast (SINGULAIR) 10 MG tablet Take 1 (one) tablet by mouth at bedtime * pravastatin (PRAVACHOL) 40 MG tablet Take 1 (one) tablet by mouth at bedtime * Sodium Fluoride (PREVIDENT DT) by dental route at bedtime * aspirin (ASPIRIN) 81 MG tablet Take 1 (one) tablet by mouth once daily * multivitamin daily (THERAGRAN) tablet Take 1 (one) tablet by mouth daily with food * Zinc 30 MG Take 60 mg by mouth once daily * Probiotic Product ([employer] PO) Take 1 tablet by mouth once daily * Cyanocobalamin 5000 MCG TBDP Take 1 tablet by mouth once daily * Glucosamine-Chondroitin (GLUCOSAMINE CHONDR COMPLEX PO) Take 1 tablet by mouth 3 times daily * nitroGLYCERIN (NITROSTAT) 0.4 MG tablet(Started 04/01/2018) Dissolve 1 (one) tablet under the tongue as needed * meclizine (ANTIVERT) 12.5 MG tablet Take 2 (two) tablets by mouth every 6 hours as needed * albuterol HFA (PROVENTIL; VENTOLIN; PROAIR) 108 (90 Base) MCG/ACT inhaler Inhale 2 (two) puffs by mouth 4 times daily as needed 2 puffs 3 times daily * albuterol (PROVENTIL;VENTOLIN) (2.5 MG/3ML) 0.083% nebulizer solution Inhale by mouth every 4 hours as needed for Shortness of Breath or Wheezing * mupirocin (BACTROBAN) 2 % ointment Apply to affected area as needed * Ca Carbonate-Mag Hydroxide (ROLAIDS PO) Take by mouth as needed * Menthol (HALLS COUGH DROPS MT) by Mouth/Throat route every 2 hours as needed * furosemide (LASIX) 40 MG tablet Take 1.5 (one and one-half) tablets by mouth 2 times daily Reasons: Edema * EMGALITY 120 MG/ML auto-injector pen(Started 10/29/2019) INJECT CONTENTS OF 1 PEN (120 MG) UNDER THE SKIN EVERY 30 DAYS 5 refills left * methylphenidate CR (METADATE CD) 20 MG capsule(Started 10/19/2019) as needed * POTASSIUM CHLORIDE ER PO Take 45 mL by mouth duluted into 120ml of water 3 times daily * Simethicone (GAS-X PO) Take by mouth 3 times daily * acetaminophen (TYLENOL) 325 MG tablet(Started 07/06/2020) Take 2 tablets by mouth every 4 hours as needed for Fever or Pain Maximum allowable Acetaminophen amount = 4 Grams (4000 mg) / 24 hours. 1 refill by 07/06/2021 * acetaminophen-codeine (TYLENOL #3) 300-30 MG tablet(Started 07/06/2020) Take 1 tablet by mouth every 6 hours as needed for Pain * Cholecalciferol 1.25 MG (61867 UT) Take 50,000 Units by mouth * tamsulosin (FLOMAX) 0.4 MG capsule(Started 01/02/2021) * cetirizine (ZYRTEC) 10 MG tablet(Started 04/10/2021) Take 1 (one) tablet by mouth once daily * [place]-3 Fatty Acids (fish oil) 1000 MG capsule * biotin 5 MG tablet * benzonatate (Tessalon) 200 MG capsule(Started 11/29/2022) 3 times daily as needed * methylphenidate (Ritalin) 10 MG tablet(Started 11/27/2022) Take 1 (one) tablet by mouth 2 times daily * SUMAtriptan Succinate 6 MG/0.5ML(Started 09/04/2022) * EVENING PRIMROSE OIL PO Take 1,300 mg by mouth once daily * CRANBERRY EXTRACT PO Take 8,400 mg by mouth 3 times daily * betamethasone dipropionate augmented (Diprolene Af) 0.05 % cream(Started 07/23/2023) 2 times daily as needed * hyoscyamine (Levsin SL) 0.125 MG sublingual tablet(Started 01/18/2024) DISSOLVE UNDER THE TONGUE 1 TABLET EVERY 4 HOURS NEEDED FOR SPASMS Strength: 0.125 mg * trimethobenzamide (Tigan) 300 MG capsule(Started 01/26/2024) Take 1 (one) capsule by mouth every 8 hours as needed for Nausea/Vomiting * levothyroxine (Synthroid) 175 MCG tablet Take 1 (one) tablet by mouth once daily * diazePAM (Valium) 5 MG tablet Take 1 (one) tablet by mouth every 6 hours as needed * ondansetron, disintegrating, (Zofran ODT) 8 MG tablet(Started 02/17/2024) Take 1 (one) tablet by mouth every 8 hours as needed for Nausea/Vomiting Allow tablet to dissolve on the tongue Reasons: Nausea and Vomiting 2 refills by 02/16/2025 * sucralfate (Carafate) 1 GM/10ML suspension(Started 05/18/2024) TAKE 20 ML BY MOUTH 4 TIMES DAILY 3 refills by 05/18/2025 * budesonide (Pulmicort) 0.5 MG/2ML nebulizer suspension(Started 04/01/2024) INHALE THE CONTENTS OF 1 VIAL VIA NEBULIZER ONCE DAILY. RINSE AND SPIT AFTER USE * esomeprazole (NexIUM) 40 MG capsule(Started 07/18/2024) * Trelegy Ellipta 200-62.5-25 MCG/ACT inhaler(Started 04/19/2024) Inhale 1 (one) puff by mouth once daily * fezolinetant (Veozah) 45 MG tablet(Started 08/17/2024) Take 1 (one) tablet by mouth once daily * exemestane (Aromasin) 25 MG tablet(Started 2024) TAKE 1 TABLET BY MOUTH ONCE DAILY 3 refills by 2025 * desipramine (Norpramin) 10 MG tablet(Started 08/30/2024) TAKE 1 AND 1/2 TABLETS BY MOUTH AT BEDTIME 3 refills by 08/30/2025 * diphenoxylate-atropine (Lomotil) 2.5-0.025 MG tablet(Started 09/06/2024) TAKE 1 TABLET BY MOUTH EVERY 3 HOURS NEEDED FOR DIARRHEA 4 refills by 03/05/2025 Ended Medications* polyethylene glycol 3350 (Miralax) 17 GM/SCOOP powder(Started 12/07/2024)(Discontinued) Mix all of powder with 64oz liquid. Drink half of mixture at 5pm the night before colonoscopy. Finish at 4am the day of test * bisacodyl EC (Dulcolax) 5 MG tablet(Started 12/07/2024)(Discontinued) Take 4 tablets orally at noon the day before your colonoscopy Active Problems Problem Noted Date Diagnosed Date Barnard's esophagus 04/19/2024 Diastolic dysfunction 04/19/2024 Osteopenia of multiple sites 10/14/2023 Acquired absence of both breasts 02/07/2021 Breast cancer, right 2019, stage 0 07/06/2020 Cancer Staging:Clinical stage from 09/28/2021:Stage 0(cTis (DCIS), cN0, cM0, G2, ER: Not Assessed, GA: Not Assessed, HER2: Not Assessed) - Signed by Meghana Zapata MD on 09/29/2021 Pathologic stage from 09/29/2021:Stage 0(pTis (DCIS), cN0, cM0, G2, ER: Not Assessed, GA: Not Assessed, HER2: Not Assessed) - Signed by Meghana Zapata MD on 09/29/2021 Breast cancer, left, upper-o uter female, estrogen receptor positive 201906/12/2020 Cancer Staging:Clinical stage from 07/18/2020:Stage IA(cT1b, cN0, cM0, G1, ER+, GA+, HER2-) - Signed by Meghana Zapata MD on 09/29/2021 Pathologic stage from 07/18/2020:Stage IA(pT1b, pN0(sn), cM0, G1, ER+, GA+, HER2- ) - Signed by Meghana Zapata MD on 09/29/2021 Increased body mass index 06/05/2020 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/11/2019 Impaired mobility and ADLs 11/10/2019 Elevated blood pressure reading 11/10/2019 Juvenile osteochondrosis of second metatarsal Osteoarthrosis 11/10/2019 Acquired hypothyroidism 03/01/2019 Osteopenia 03/01/2019 Vitamin D deficiency 03/01/2019 Achalasia 02/22/2019 Abdominal cramping 02/22/2019 Neurogenic bladder 12/22/2018 Neuromuscular dysfunction of bladder, unspecifie d 12/22/2018 Hormone replacement therapy 09/29/2018 Skin abrasion 09/29/2018 Thyroid nodule 09/24/2018 Polypharmacy 08/18/2018 Emotional lability 08/18/2018 Peripheral edema 08/18/2018 Thyromegaly 08/18/2018 Asthma 08/18/2018 Urinary retention 08/18/2018 Intraductal papilloma of breast 07/23/2018 Spasm 07/23/2018 Atypical facial pain 05/19/2018 Intractable chronic migraine without aura and with status migrainosus 01/26/2018 Acute recurrent sinusitis 09/15/2017 Abnormal vision 04/07/2016 Vertigo 04/07/2016 Esophageal spasm 12/17/2015 Fatigue 10/23/2015 Chronic sinusitis 08/24/2015 Posttraumatic stress disorder 08/24/2015 Hypersomnia 08/24/2015 Persistent insomnia 08/24/2015 Gastroesophageal reflux disease without esophagi tis 04/21/2014 Unknown and unspecified causes of morbidity 03/0 01/2014 Obesity, unspecified 09/11/2011 Other and unspecified angina pectoris 09/11/2011 Atherosclerotic heart diseas e of [place] coronary artery without angina pectoris 09/11/2011 Essential (primary) hypertension 09/11/2011 Pure hypercholesterolemia 09/11/2011 Tobacco dependence syndrome 09/11/2011 Edema 09/10/2011 Heart failure, unspecified 09/10/2011 Multiple sclerosis 12/07/2008 FALGUNI (obstructive sleep apnea) 10/06/2000 Dysphagia Adenomatous polyp of colon History of colon polyps Gastric adenoma Resolved Problems Problem Noted Date Diagnosed Date Resolved Date Functional diarrhea 01/11/2020 04/24/20 21 Immunizations * Fullscreen primary monovalent 12+ yr 0.3mL Purple cap(Given 09/20/2021, 02/26/2021, 01/29/2021) * FLU VACCINE TRI IIV3 SPLIT PF IM (FLUVIRIN)(Given 11/07/2013) * HEP B VACCINE, ADULT 3 DOSE(Given 03/12/1998, 01/15/1998) * INFLUENZA A A4O2-45 VACCINE(Given 08/30/2013) * INFLUENZA VACCINE(Given 09/20/2021, 10/13/2014) * INFLUENZA VACCINE, HIGH-DOSE, QUADR. (FLUZONE HIGH-DOSE QUADRIVALENT; 65Y+), 0.7 ML (HD-IIV4)(Given 08/26/2019, 08/28/2018) * INFLUENZA VACCINE, QUADR. 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 Pulse 84 01/04/2025 11:30 AM VETERINARY SURGERY TECHNICIAN Temperature 36.9 C (98.5 F) 01/04/2025 8:58 AM VETERINARY SURGERY TECHNICIAN Respiratory Rate 26 01/04/2025 11:3 0 AM VETERINARY SURGERY TECHNICIAN Oxygen Saturation 99% 01/04/2025 11: 30 AM VETERINARY SURGERY TECHNICIAN Inhaled Oxygen Concentration 21% 07/06/2020 2 :25 PM CDT Weight 107.4 kg (236 lb 11.2 oz) 01/04/2025 8:58 AM VETERINARY SURGERY TECHNICIAN Height 160 cm (5' 3 ) 01/04/2025 8:58 AM VETERINARY SURGERY TECHNICIAN Body Mass Index 41.93 01/04/2025 8:58 AM VETERINARY SURGERY TECHNICIAN Medical Devices Implanted Type Area Remote Medical Coder Device Identifier Shelf Expiration Date Model / Serial / Lot Mrkr [employer]st[employer] Cel[employer] Sys Implanted:Qty: 1 on 06/12/2020 by Maddie Kelly MD at [facility] 10/05/2020 [employer] / / [id number] Description:titanium biopsy marker Procedures * ENDOSCOPY, COLON, SCREENING(Performed 01/04/2025) * PATHOLOGY TISSUE(Performed 01/04/2025) 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 * EGD(Performed 01/04/2025) * VITAMIN D 25-HYDROXY(Performed 08/17/2024) Performed for Malignant neoplasm of upper-outer quadrant of left breast in female, estrogen receptor positive (HCC) * COMPREHENSIVE METABOLIC PANEL(Performed 08/17/2024) Performed for Malignant neoplasm of upper-outer quadrant of left breast in female, estrogen receptor positive (HCC) * CBC W AUTO DIFFERENTIAL(Performed 08/17/2024) Performed for Malignant neoplasm of upper-outer quadrant of left breast in female, estrogen receptor positive (HCC) * PATHOLOGY TISSUE(Performed 07/27/2024) Performed for Dysphagia, unspecified type * GA ED EGD FLEX TRANSORAL DX(Performed 07/27/2024) Performed for Dysphagia, unspecified type * EGD(Performed 07/27/2024) * VITAMIN D 25-HYDROXY(Performed 02/17/2024) Performed for Malignant neoplasm of upper-outer quadrant of left breast in female, estrogen receptor positive (HCC) * COMPREHENSIVE METABOLIC PANEL(Performed 02/17/2024) Performed for Malignant neoplasm of upper-outer quadrant of left breast in female, estrogen receptor positive (HCC) * CBC W AUTO DIFFERENTIAL(Performed 02/17/2024) Performed for Malignant neoplasm of upper-outer quadrant of left breast in female, estrogen receptor positive (HCC) * ENDOSCOPY, COLON, SCREENING(Performed 01/27/2024) * PATHOLOGY TISSUE(Performed 01/27/2024) Performed for Dysphagia, unspecified type, History of colon polyps * GA COLOREC CANC SCRN,COLONOSCPY HI RISK(Performed 01/27/2024) Performed for Dysphagia, unspecified type, History of colon polyps * GA ED EGD FLEX TRANSORAL DX(Performed 01/27/2024) Performed for Dysphagia, unspecified type, History of colon polyps * EGD(Performed 01/27/2024) * FL ESOPHAGRAM(Performed 10/15/2023) Performed for Achalasia, Oropharyngeal dysphagia * FL SWALLOWING FUNCTION STUDY(Performed 09/03/2023) Performed for Oropharyngeal dysphagia * ENDOSCOPY, COLON, SCREENING(Performed 08/06/2023) * PATHOLOGY TISSUE(Performed 08/06/2023) Performed for Choking, subsequent encounter, Diarrhea, unspecified type * GA COLOREC CANC SCRN,COLONOSCPY HI RISK(Performed 08/06/2023) Performed for Choking, subsequent encounter, Diarrhea, unspecified type * GA ED EGD FLEX TRANSORAL DX(Performed 08/06/2023) Performed for Choking, subsequent encounter, Diarrhea, unspecified type * EGD(Performed 08/06/2023) * FL ESOPHAGRAM(Performed 06/05/2023) Performed for Achalasia * PATHOLOGY TISSUE(Performed 04/08/2023) Performed for Choking, subsequent encounter * GA ED EGD FLEX TRANSORAL DX(Performed 04/08/2023) Performed for Choking, subsequent encounter * EGD(Performed 04/08/2023) * VITAMIN D 25-HYDROXY(Performed 04/06/2023) Performed for Malignant neoplasm of upper-outer quadrant of left breast in female, estrogen receptor positive (HCC) * COMPREHENSIVE METABOLIC PANEL(Performed 04/06/2023) Performed for Malignant neoplasm of upper-outer quadrant of left breast in female, estrogen receptor positive (HCC) * CBC W AUTO DIFFERENTIAL(Performed 04/06/2023) Performed for Malignant neoplasm of upper-outer quadrant of left breast in female, estrogen receptor positive (HCC) * DERMATOPATHOLOGY(Performed 01/15/2023) * EGD(Performed 11/26/2022) * PATHOLOGY TISSUE(Performed 11/26/2022) Performed for Gastric adenoma, 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, Adenomatous polyp of colon, unspecified part of colon * COLONOSCOPY SCREEN(Performed 11/26/2022) Performed for Gastric adenoma, 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, Adenomatous polyp of colon, unspecified part of colon * GA ED EGD FLEX TRANSORAL DX(Performed 11/26/2022) Performed for Gastric adenoma, 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, Adenomatous polyp of colon, unspecified part of colon * EGD(Performed 11/26/2022) * PATHOLOGY/CYTOLOGY REPORT ORDER(Performed 11/12/2022) * COMPREHENSIVE METABOLIC PANEL(Performed 10/13/2022) Performed for CHEK2-related breast cancer (HCC), Malignant neoplasm of upper- outer quadrant of leftbreast in female, estrogen receptor positive (HCC) * CBC W AUTO DIFFERENTIAL(Performed 10/13/2022) Performed for CHEK2-related breast cancer (HCC), Malignant neoplasm of upper- outer quadrant of leftbreast in female, estrogen receptor positive (HCC) * ENDOSCOPY, COLON, SCREENING(Performed 05/21/2022) * PATHOLOGY TISSUE(Performed 05/21/2022) 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, Gastric adenoma, Dysphagia, unspecified type, Adenomatous polyp of colon, unspecified part of colon * COLONOSCOPY SCREEN(Performed 05/21/2022) 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, Gastric adenoma, Dysphagia, unspecified type, Adenomatous polyp of colon, unspecified part of colon * GA ED EGD FLEX TRANSORAL DX(Performed 05/21/2022) 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, Gastric adenoma, Dysphagia, unspecified type, Adenomatous polyp of colon, unspecified part of colon * EGD(Performed 05/21/2022) * COMPREHENSIVE METABOLIC PANEL(Performed 04/14/2022) Performed for Malignant neoplasm of upper-outer quadrant of left breast in female, estrogen receptor positive (HCC) * CBC W AUTO DIFFERENTIAL(Performed 04/14/2022) Performed for Malignant neoplasm of upper-outer quadrant of left breast in female, estrogen receptor positive (HCC) * PATHOLOGY TISSUE(Performed 12/25/2021) Performed for Dysphagia, unspecified type, 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 * COLONOSCOPY SCREEN(Performed 12/25/2021) Performed for Dysphagia, unspecified type, 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 * GA ED EGD FLEX TRANSORAL DX(Performed 12/25/2021) Performed for Dysphagia, unspecified type, 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 * EGD(Performed 12/25/2021) * ENDOSCOPY, COLON, SCREENING(Performed 12/25/2021) * ENDOSCOPY, COLON, SCREENING(Performed 05/15/2021) * PATHOLOGY TISSUE(Performed 05/15/2021) Performed for Gastric adenoma, Adenomatous polyp of colon, unspecified part of colon * COLONOSCOPY SCREEN(Performed 05/15/2021) Performed for Gastric adenoma, Adenomatous polyp of colon, unspecified part of colon * GA ED EGD FLEX TRANSORAL DX(Performed 05/15/2021) Performed for Gastric adenoma, Adenomatous polyp of colon, unspecified part of colon * EGD(Performed 05/15/2021) * FL ESOPHAGRAM(Performed 09/26/2020) Performed for Esophageal dysphagia, Achalasia * ENDOSCOPY, COLON, SCREENING(Performed 08/22/2020) * PATHOLOGY TISSUE(Performed 08/22/2020) Performed for High risk for colon cancer, Dysphagia, unspecified type, Gastric adenoma, Diarrhea, unspecified type * GA COLONOSCOPY, DIAGNOSTIC(Performed 08/22/2020) Performed for High risk for colon cancer, Dysphagia, unspecified type, Gastric adenoma, Diarrhea, unspecified type * GA ED EGD FLEX TRANSORAL DX(Performed 08/22/2020) Performed for High risk for colon cancer, Dysphagia, unspecified type, Gastric adenoma, Diarrhea, unspecified type * ENDOSCOPY, COLON, SCREENING(Performed 08/22/2020) * BASIC METABOLIC PANEL (CALCIUM TOTAL)(Performed 08/22/2020) Performed for Hypokalemia * FSH(Performed 08/16/2020) Performed for Malignant neoplasm of upper-outer quadrant of left breast in female, estrogen receptor positive (HCC) * ESTRADIOL(Performed 08/16/2020) Performed for Malignant neoplasm of upper-outer quadrant of left breast in female, estrogen receptor positive (HCC) * CBC W AUTO DIFFERENTIAL(Performed 08/16/2020) Performed for Malignant neoplasm of upper-outer quadrant of left breast in female, estrogen receptor positive (HCC) * PATHOLOGY/CYTOLOGY REPORT ORDER(Performed 07/09/2020) * CARDIAC EKG ORDER(Performed 07/09/2020) * BASIC METABOLIC PANEL (CALCIUM TOTAL)(Performed 07/06/2020) Performed for History of left breast cancer * PATHOLOGY TISSUE(Performed 07/06/2020) 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, Malignant neoplasm of upper-outer quadrant of left breast in female, estrogen receptor positive (HCC) * ENDOTRACHEAL TUBE NOTE(Performed 07/06/2020) * ENDOTRACHEAL TUBE NOTE(Performed 07/06/2020) * GA TISSUE CAFE HELPER PLACEMENT BREAST RECONSTRUCTION(Performed 07/06/2020) 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, Malignant neoplasm of upper-outer quadrant of left breast in female, estrogen receptor positive (HCC) * GA SENTINEL LYMPH NODE BX PROC PERFORM(Performed 07/06/2020) 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, Malignant neoplasm of upper-outer quadrant of left breast in female, estrogen receptor positive (HCC) * MASTECTOMY(Performed 07/06/2020) 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, Malignant neoplasm of upper-outer quadrant of left breast in female, estrogen receptor positive (HCC) * NM SENTINEL NODE INJECTION(Performed 07/05/2020) Performed for Malignant neoplasm of upper-outer quadrant of left breast in female, estrogen receptor positive (HCC) * SARS-COV-2 (COVID-19) IN HOUSE(Performed 07/04/2020) Performed for Malignant neoplasm of upper-outer quadrant of left breast in female, estrogen receptor positive (HCC) * EKG 12-LEAD(Performed 07/04/2020) Performed for Pre-op evaluation, FALGUNI (obstructive sleep apnea) * US BREAST LEFT BIOPSY(Performed 06/12/2020) Performed for Abnormal mammogram * MAMMO LEFT DIAGNOSTIC(Performed 06/12/2020) Performed for Status post breast biopsy * PATHOLOGY TISSUE(Performed 06/12/2020) Performed for Abnormal mammogram * US BREAST LEFT LTD(Performed 06/07/2020) Performed for 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, Increased risk of breast cancer * MAMMO BILAT DIAGNOSTIC(Performed 06/07/2020) Performed for 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, Increased risk of breast cancer * US PELVIS LIMITED(Performed 02/09/2020) Performed for 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 * PATHOLOGY TISSUE EXAM (STL)(Performed 01/25/2020) Performed for 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, Gastric adenoma, Adenomatous polyp of colon, unspecified part of colon * GA COLONOSCOPY,BIOPSY(Performed 01/25/2020) Performed for 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, Gastric adenoma, Adenomatous polyp of colon, unspecified part of colon * ESOPHAGOGASTRODUODENOSCOPY (EGD) REMOVAL TUMOR/POLYP/LESION (ANY METHOD) (Performed 01/25/2020) Performed for 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, Gastric adenoma, Adenomatous polyp of colon, unspecified part of colon * GA EGD FLEX TRANSORAL W BX SNGL OR MULT(Performed 01/25/2020) Performed for 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, Gastric adenoma, Adenomatous polyp of colon, unspecified part of colon * COLONOSCOPY SCREEN(Performed 01/25/2020) Performed for 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, Gastric adenoma, Adenomatous polyp of colon, unspecified part of colon * GA ED EGD FLEX TRANSORAL DX(Performed 01/25/2020) Performed for 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, Gastric adenoma, Adenomatous polyp of colon, unspecified part of colon * EGD(Performed 01/25/2020) * ENDOSCOPY, COLON, SCREENING(Performed 01/25/2020) * PATHOLOGY TISSUE EXAM (STL)(Performed 10/05/2019) Performed for Gastric adenoma * ESOPHAGOGASTRODUODENOSCOPY (EGD) WITH POLYPECTOMY(Performed 10/05/2019) Performed for Gastric adenoma * ESOPHAGOGASTRODUODENOSCOPY (EGD) BALLOON DILATION(Performed 10/05/2019) Performed for Gastric adenoma * GA ED EGD FLEX TRANSORAL DX(Performed 10/05/2019) Performed for Gastric adenoma * EGD(Performed 10/05/2019) * PATHOLOGY TISSUE EXAM (STL)(Performed 08/10/2019) Performed for Gastric adenoma * ESOPHAGOGASTRODUODENOSCOPY (EGD) BIOPSY(Performed 08/10/2019) Performed for Gastric adenoma * ESOPHAGOGASTRODUODENOSCOPY (EGD) REMOVAL TUMOR/POLYP/LESION (ANY METHOD) (Performed 08/10/2019) Performed for Gastric adenoma * GA ED EGD FLEX TRANSORAL DX(Performed 08/10/2019) Performed for Gastric adenoma * EGD(Performed 08/10/2019) Performed for Gastric adenoma * PATHOLOGY TISSUE EXAM (STL)(Performed 07/13/2019) Performed for Dysphagia, unspecified type, Adenomatous polyp of colon, unspecified part of colon * GA COLONOSCOPY,BIOPSY(Performed 07/13/2019) Performed for Dysphagia, unspecified type, Adenomatous polyp of colon, unspecified part of colon * ESOPHAGOGASTRODUODENOSCOPY (EGD) BIOPSY(Performed 07/13/2019) Performed for Dysphagia, unspecified type, Adenomatous polyp of colon, unspecified part of colon * GA ED EGD FLEX TRANSORAL DX(Performed 07/13/2019) Performed for Dysphagia, unspecified type, Adenomatous polyp of colon, unspecified part of colon * COLONOSCOPY SCREEN(Performed 07/13/2019) Performed for Dysphagia, unspecified type, Adenomatous polyp of colon, unspecified part of colon * EGD(Performed 07/13/2019) Performed for Dysphagia, unspecified type, Gastroesophageal reflux disease without esophagitis * ENDOSCOPY, COLON, SCREENING(Performed 07/13/2019) * ESOPHAGOGASTRODUODENOSCOPY (EGD) DIAGNOSTIC(Performed 03/23/2019) Performed for Dysphagia, unspecified type * EGD(Performed 03/23/2019) * MAMMOGRAM(Performed 03/09/2019) * FL ESOPHAGRAM(Performed 02/08/2019) Performed for Other dysphagia * ESOPHAGOGASTRODUODENOSCOPY (EGD) DIAGNOSTIC(Performed 12/01/2018) Performed for Dysphagia, unspecified type * EGD(Performed 12/01/2018) * POTASSIUM WHOLE BLD(Performed 12/01/2018) Performed for Hypokalemia * MOTILITY ESOPHAGEAL(Performed 10/05/2018) Performed for Dysphagia, unspecified type, Esophageal spasm * ESOPHAGOGASTRODUODENOSCOPY (EGD) DIAGNOSTIC(Performed 09/10/2018) * ESOPHAGOGASTRODUODENOSCOPY (EGD) WITH SCLEROTHERAPY AND BOTOX(Performed 09/10/2018) * ESOPHAGOGASTRODUODENOSCOPY (EGD) BALLOON DILATION(Performed 09/10/2018) * EGD(Performed 09/10/2018) * POTASSIUM BLOOD(Performed 09/10/2018) * MAGNESIUM BLOOD(Performed 09/09/2018) * COMPREHENSIVE METABOLIC PANEL(Performed 09/09/2018) * CBC W AUTO DIFFERENTIAL(Performed 09/09/2018) * FL ESOPHAGRAM(Performed 09/03/2018) Performed for Other dysphagia, MS (multiple sclerosis) (HCC) * PATHOLOGY TISSUE EXAM (STL)(Performed 07/28/2018) Performed for Dysphagia, unspecified type, History of colon polyps * COLONOSCOPY BIOPSY (ANY METHOD)(Performed 07/28/2018) Performed for Dysphagia, unspecified type, History of colon polyps * ESOPHAGOGASTRODUODENOSCOPY (EGD) BIOPSY(Performed 07/28/2018) Performed for Dysphagia, unspecified type, History of colon polyps * ENDOSCOPIC DILATION WITH BALLOON DILATION(Performed 07/28/2018) Performed for Dysphagia, unspecified type, History of colon polyps * COLONOSCOPY SCREEN(Performed 07/28/2018) Performed for Dysphagia, unspecified type, History of colon polyps * ESOPHAGOGASTRODUODENOSCOPY (EGD) DIAGNOSTIC(Performed 07/28/2018) Performed for Dysphagia, unspecified type, History of colon polyps * EGD(Performed 07/28/2018) * ENDOSCOPY, COLON, SCREENING(Performed 07/28/2018) * MAMMOGRAM(Performed 03/09/2018) * MAMMOGRAM(Performed 02/24/2018) * PATHOLOGY TISSUE EXAM (STL)(Performed 12/16/2017) Performed for Dysphagia, unspecified type, Polyp of colon, unspecified part of colon, unspecified type * COLONOSCOPY EXCISION LESION CAUTERY BY SNARE(Performed 12/16/2017) Performed for Dysphagia, unspecified type, Polyp of colon, unspecified part of colon, unspecified type * COLONOSCOPY BIOPSY (ANY METHOD)(Performed 12/16/2017) Performed for Dysphagia, unspecified type, Polyp of colon, unspecified part of colon, unspecified type * ESOPHAGOGASTRODUODENOSCOPY (EGD) BALLOON DILATION(Performed 12/16/2017) Performed for Dysphagia, unspecified type, Polyp of colon, unspecified part of colon, unspecified type * COLONOSCOPY SCREEN(Performed 12/16/2017) Performed for Dysphagia, unspecified type, Polyp of colon, unspecified part of colon, unspecified type * ESOPHAGOGASTRODUODENOSCOPY (EGD) DIAGNOSTIC(Performed 12/16/2017) Performed for Dysphagia, unspecified type, Polyp of colon, unspecified part of colon, unspecified type * ENDOSCOPY, COLON, SCREENING(Performed 12/16/2017) * EGD(Performed 12/16/2017) * MAMMOGRAM(Performed 04/16/2017) * MAMMOGRAM(Performed 02/11/2017) * PATHOLOGY TISSUE(Performed 02/04/2017) * TYPE + SCREEN PANEL(Performed 02/04/2017) * T4 FREE(Performed 01/29/2017) * TSH(Performed 01/29/2017) * BASIC METABOLIC PANEL (CALCIUM TOTAL)(Performed 01/29/2017) * ENDOSCOPIC DILATION WITH BALLOON DILATION(Performed 01/28/2017) Performed for Dysphagia, unspecified type * ESOPHAGOGASTRODUODENOSCOPY (EGD) DIAGNOSTIC(Performed 01/28/2017) Performed for Dysphagia, unspecified type * EGD(Performed 01/28/2017) * MAMMOGRAM(Performed 01/27/2017) * CORTISOL FREE URINE TIMED(Performed 10/20/2016) * T4 FREE(Performed 10/17/2016) * TSH(Performed 10/17/2016) * XR CHEST 2VW(Performed 10/13/2016) * URINALYSIS AUTO - POINT OF CARE (AMB) SLU(Performed 09/03/2016) * MAMMOGRAM(Performed 08/01/2016) * CBC W AUTO DIFFERENTIAL(Performed 06/26/2016) * BASIC METABOLIC PANEL (CALCIUM TOTAL)(Performed 06/26/2016) * CBC W AUTO DIFFERENTIAL(Performed 06/26/2016) * URINALYSIS W/MICROSCOPIC NO CULTURE(Performed 06/25/2016) * BASIC METABOLIC PANEL (CALCIUM TOTAL)(Performed 06/25/2016) * CBC W AUTO DIFFERENTIAL(Performed 06/25/2016) * PT-INR SLH(Performed 06/25/2016) * CBC W AUTO DIFFERENTIAL(Performed 06/25/2016) * BASIC METABOLIC PANEL (CALCIUM TOTAL)(Performed 06/24/2016) * CBC W AUTO DIFFERENTIAL(Performed 06/24/2016) * CBC W AUTO DIFFERENTIAL(Performed 06/24/2016) * CBC W AUTO DIFFERENTIAL(Performed 06/23/2016) * BASIC METABOLIC PANEL (CALCIUM TOTAL)(Performed 06/23/2016) * CBC W AUTO DIFFERENTIAL(Performed 06/23/2016) * CULTURE URINE(Performed 06/23/2016) * URINALYSIS W/MICROSCOPIC NO CULTURE(Performed 06/23/2016) * ECHO STRESS COLOR FLOW AND DOPPLER(Performed 06/23/2016) * URINALYSIS REFLEX TO MICROSCOPIC NO CULTURE(Performed 06/22/2016) * HEMOGLOBIN A1C(Performed 06/22/2016) * T4 FREE(Performed 06/22/2016) * TSH(Performed 06/22/2016) * CK + CKMB PANEL(Performed 06/22/2016) * TROPONIN I(Performed 06/22/2016) * LIPID PROFILE(Performed 06/22/2016) * BASIC METABOLIC PANEL (CALCIUM TOTAL)(Performed 06/22/2016) * PTT SLH(Performed 06/22/2016) * PT-INR SLH(Performed 06/22/2016) * CBC W AUTO DIFFERENTIAL(Performed 06/22/2016) * CBC W AUTO DIFFERENTIAL(Performed 06/22/2016) * ECHO STRESS W DOBUTAMINE(Performed 06/22/2016) * EKG 12-LEAD(Performed 06/22/2016) * HEPATIC FUNCTION PANEL(Performed 06/21/2016) * CK + CKMB PANEL(Performed 06/21/2016) * TROPONIN I(Performed 06/21/2016) * PT-INR SLH(Performed 06/21/2016) * XR CHEST 2VW(Performed 06/21/2016) * TROPONIN I(Performed 06/21/2016) * CK + CKMB PANEL(Performed 06/21/2016) * BASIC METABOLIC PANEL (CALCIUM TOTAL)(Performed 06/21/2016) * CBC W AUTO DIFFERENTIAL(Performed 06/21/2016) * CBC W AUTO DIFFERENTIAL(Performed 06/21/2016) * EKG 12-LEAD(Performed 06/21/2016) * PATHOLOGY TISSUE(Performed 04/30/2016) * MAMMOGRAM(Performed 01/25/2016) * MAMMOGRAM(Performed 12/28/2015) * COMPLETE PFT W/WO BRONCHODILATOR(Performed 11/07/2015) * COMPLETE PFT W/WO BRONCHODILATOR(Performed 11/07/2015) * MAGNESIUM BLOOD(Performed 10/24/2015) * BASIC METABOLIC PANEL (CALCIUM TOTAL)(Performed 10/24/2015) * CULTURE FUNGUS OTHER+FUNGUS SMEAR(Performed 10/11/2015) * CULTURE FUNGUS OTHER+FUNGUS SMEAR(Performed 09/27/2015) * CD4/CD8 + RATIO PANEL BLOOD(Performed 09/20/2015) * CBC W AUTO DIFFERENTIAL(Performed 09/20/2015) * FL ESOPHAGRAM(Performed 05/18/2015) * PATHOLOGY TISSUE(Performed 04/11/2015) * XR CHEST 2VW(Performed 12/28/2014) * CT FACIAL BONES WO CONTRAST(Performed 11/21/2014) * GIARDIA SCREEN DFA(Performed 11/16/2014) * CRYPTOSPORIDIUM ANTIGEN(Performed 11/16/2014) * CULTURE STOOL+ E COLI SHIGA-LIKE TOXIN(Performed 11/16/2014) * C DIFFICILE GDH AG + TOXIN A+B(Performed 11/16/2014) * COMPLETE PFT W/WO BRONCHODILATOR(Performed 11/03/2014) * BLOOD GASES ART - PFT(Performed 11/03/2014) * ECHO COMPLETE(Performed 11/03/2014) * ZINC BLOOD(Performed 10/25/2014) * IRON + TIBC PANEL(Performed 10/25/2014) * FERRITIN(Performed 10/25/2014) * METHYLMALONIC ACID BLOOD(Performed 10/25/2014) * VITAMIN B12 FOLATE PANEL(Performed 10/25/2014) * COMPREHENSIVE METABOLIC PANEL(Performed 10/25/2014) * VITAMIN E(Performed 10/25/2014) * VITAMIN K1(Performed 10/25/2014) * VITAMIN D 25-HYDROXY D2+D3(Performed 10/25/2014) * VITAMIN A(Performed 10/25/2014) * TSH(Performed 10/25/2014) * CBC W/O DIFFERENTIAL(Performed 10/25/2014) * LAB HISTORICAL RESULTS-ONBASE(Performed 01/15/2010) Results * ENDOSCOPY, COLON, SCREENING (01/04/2025 10:16 AM VETERINARY SURGERY TECHNICIAN) Report Endoscopy POC Endoscopy Department Report _ [...] bowel preparation was evaluated using the BBPS ([place] Bowel Preparation Scale) with scores of: Right [...] non-young portions. Procedure Code(s): --- Professional --- 93112, Colonoscopy, flexible; with biopsy, single or multiple Diagnosis Code(s): --- Professional --- Z86.010, Personal history of colonic polyps K57.30, Diverticulosis of large intestine without perforation or abscess without bleeding CPT copyright 2021 [employer]. All rights reserved. The codes documented in this report are preliminary and upon medical coder review may be revised to meet current compliance requirements. Janeth Foreman MD ([place]) 01/04/2025 10:58:05 AM Note Initiated On: 01/04/2025 10:16 AM Number of Addenda: 0 [place] [phone] [facility] [employer] 01/04/2025 10:1 6 AM VETERINARY SURGERY TECHNICIAN Janeth Foreman MD GI PROCEDURE ORDE DEBBY [facility] [employer] * PATHOLOGY TISSUE (01/04/2025 10:14 AM VETERINARY SURGERY TECHNICIAN) Only the most recent of15 resultswithin the time period is included. Case Report Surgical Pathology Report Case: [id number] Authorizing Provider: Janeth Foreman MD Collected: 01/04/2025 10:14 AM Ordering Location: [facility] ENDOSCOPY Received: 01/04/2025 12:42 PM Pathologist: Toya Canales MD Specimens: A) - Polyp Gastric, gastric polyps B) - Colon, random colon bx 01/05/2025 12:43 PM [facility] Final Diagnosis Stomach, gastric polyps, biopsy (A): - Fundic gland polyps - No dysplasia Large intestine, random colon, biopsy (B): - No histopathologic abnormality - No lymphocytic or collagenous colitis 01/05/2025 12:43 PM [facility] Microscopic Description and Comment Microscopic examination substantiates the final diagnosis. 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 Operative procedure/findings: EGD - few gastric polyps, resected and retrieved. Colonoscopy - normal colon, biopsy to rule out microscopic colitis. 01/05/2025 12:43 PM [facility] Gross Description The requisition [...] in cassette B1. LT 01/05/2025 12:43 PM [facility] Pathologist Location at [facility] 01/05/2025 12:43 PM [facility] Disclaimer The performance characteristics of all immunohistochemical and indirect immunofluorescence stains (if any) cited in this report were determined by the Histopathology Laboratory of [facility]. Some of these tests were [...] the attending (teaching) pathologist. 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 [Z15.01, Z15.89, Z15.09, Z15.02] Biopsy, NOS COLON PART / Unknown 01/04/2025 10:32 AM VETERINARY SURGERY TECHNICIAN 01/04/2025 12:42 PM VETERINARY SURGERY TECHNICIAN Comment:Pre-op diagnosis: 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 Procedure Code(s): --- Professional --- 58487, Esophagogastroduode noscopy, flexible, transoral; with transendoscopic balloon dilation of esophagus (less than 30 mm diameter) Diagnosis Code(s): --- Professional --- K31.7, Polyp of stomach and duodenum K31.89, Other diseases of stomach and duodenum R13.10, Dysphagia, unspecified CPT copyright 2021 [employer]. All rights reserved. The codes documented in this report are preliminary and upon medical coder review may be revised to meet current compliance requirements. Janeth Foreman MD ([place]) 01/04/2025 10:24:09 AM Note Initiated On: 01/04/2025 9:12 AM Number of Addenda: [address] [facility] 01/04/2025 9:12 AM VETERINARY SURGERY TECHNICIAN Janeth Foreman MD GI PROCEDURE TYLORE DEBBY [facility] [employer] * VITAMIN D 25-HYDROXY (08/17/2024 9:56 AM CDT) Only the most recent of3 resultswithin the time period is included. Vitamin D, 25 Hydroxy 53.2 30.0 - 80.0 ng/mL 08/17/2024 11:03 AM CDT [facility] Comment: The recommendations for 25-Hydroxy Vitamin D clinical decision points are as follows: Deficient: <20.0 ng/mL Insufficient: 20.0 - 29.9 ng/mL Sufficient: 30.0 - 100.0 ng/mL Potential Toxicity: >100 ng/mL Reference: The Endocrine Society Clinical Practice Guidelines. 2011 If the 25-Hydroxy Vitamin D results are inconsitent with clinical evidence, it is recommended that follow-up testing using a method such as LC/MS/MS be performed to confirm the result. Blood BLOOD SPECIMEN / Unknown Venipuncture / Unknown 08/17/2024 9:56 AM CDT 08/17/2024 10:16 AM CDT Zuly Miller MD LAB - CHEMISTRY REESE GUARDADO [facility] Organization Address City/State/ZIP Co de Phone Number [facility] [address] [place] [phone], [place] [phone] * (ABNORMAL) CBC WITH DIFFERENTIAL (08/17/2024 9:56 AM CDT) Only the most recent of20 resultswithin the time period is included. WBC 7.9 4.0 - 10.7 x10E9/L 08/17/2024 10:55 AM [facility] RBC Count 4.60 3.90 - 5.20 x10E12/L 08/17/2024 10:55 AM [facility] Hemoglobin 13.4 11.9 - 15.8 g/dL 08/17/2024 10:55 AM [facility] Hematocrit 41.6 34.8 - 46.1 % 08/17/2024 10:55 AM [facility] MCV 90.4 80.0 - 98.0 fL 08/17/2024 10:55 AM [facility] MCH 29.1 26.7 - 33.6 pg 08/17/2024 10:55 AM [facility] MCHC 32.2 31.7 - 36.3 g/dL 08/17/2024 10:55 AM [facility] RDW-CV 14.4 11.3 - 14.8 % 08/17/2024 10:55 AM [facility] Platelet Count 209 150 - 420 x10E9/L 08/17/2024 10:55 AM [facility] MPV 11.8(H) 7.8 - 11.4 fL 08/17/2024 10:55 AM [facility] Preliminary Absolute Neutrophil 4.28 1.60 - 7.50 x10E9/L 08/17/2024 10:55 AM [facility] Neutrophil % 54.2 41.0 - 74.0 % 08/17/2024 10:55 AM [facility] Lymphocyte % 31.4 17.0 - 47.0 % 08/17/2024 10:55 AM [facility] Monocyte % 9.3 3.0 - 11.0 % 08/17/2024 10:55 AM [facility] Eosinophil % 3.9 0.0 - 7.0 % 08/17/2024 10:55 AM [facility] Basophil % 0.6 0.0 - 1.6 % 08/17/2024 10:55 AM [facility] Immature Granulocytes % 0.6 0.0 - 1.0 % 08/17/2024 10:55 AM [facility] Neutrophil Absolute 4.28 1.60 - 7.50 x10E9/L 08/17/2024 10:55 AM [facility] Lymphocyte Absolute 2.49 1.00 - 4.40 x10E9/L 08/17/2024 10:55 AM [facility] Monocyte Absolute 0.74 0.15 - 1.00 x10E9/L 08/17/2024 10:55 AM [facility] Eosinophil Absolute 0.31 0.00 - 0.60 x10E9/L 08/17/2024 10:55 AM [facility] Basophil Absolute 0.05 0.00 - 0.13 x10E9/L 08/17/2024 10:55 AM [facility] Blood BLOOD SPECIMEN / Unknown Venipuncture / Unknown 08/17/2024 9:56 AM CDT 08/17/2024 10:46 AM CDT Zuly Miller MD LAB - HEMATOLOGY ORD ERABLES [facility] [address] [place] [address], [place] [phone] * (ABNORMAL) COMPREHENSIVE METABOLIC PANEL (08/17/2024 9:56 AM CDT) Only the most recent of7 resultswithin the time period is included. BUN 8 7 - 26 mg/dL 08/17/2024 10:45 AM [facility] Creatinine 0.78 0.56 - 0.96 mg/dL 08/17/2024 10:45 AM [facility] Sodium 139 136 - 145 mmol/L 08/17/2024 10:45 AM [facility] Potassium 4.6(H) 3.5 - 4.5 mmol/L 08/17/2024 10:45 AM [facility] Chloride 110(H) 98 - 107 mmol/L 08/17/2024 10:45 AM [facility] CO2 27 22 - 29 mmol/L 08/17/2024 10:45 AM [facility] Glucose 81 70 - 115 mg/dL 08/17/2024 10:45 AM [facility] Calcium 9.4 8.4 - 10.2 mg/dL 08/17/2024 10:45 AM [facility] Protein Total 7.0 6.0 - 8.3 g/dL 08/17/2024 10:45 AM [facility] Albumin 3.5 3.4 - 5.0 g/dL 08/17/2024 10:45 AM [facility] Bilirubin Total 0.4 0.2 - 1.2 mg/dL 08/17/2024 10:45 AM [facility] Alkaline Phosphatase 126 40 - 150 U/L 08/17/2024 10:45 AM [facility] ALT 23 5 - 55 U/L 08/17/2024 10:45 AM [facility] AST 16 5 - 34 U/L 08/17/2024 10:45 AM [facility] Anion Gap 2(L) 6 - 16 08/17/2024 10:45 AM [facility] BUN/Creatinine Ratio 10 7 - 23 08/17/2024 10:45 AM [facility] Osmolality Calculated 285 275 - 295 mOsm/kg 08/17/2024 10:45 AM [facility] Albumin/Globulin Ratio 1.0(L) 1.1 - 2.3 08/17/2024 10:45 AM CDT [facility] eGFR by CKD-EPI 84(L) >=90 mL/min/1.7 3 m2 08/17/2024 10:45 AM CDT [facility] Blood BLOOD SPECIMEN / Unknown Venipuncture / Unknown 08/17/2024 9:56 AM CDT 08/17/2024 10:16 AM CDT Zuly Miller MD LAB - CHEMISTRY REESE GUARDADO [facility] [address] [place] [phone], [place] [phone] * EGD (07/27/2024 11:05 AM CDT) Report Endoscopy POC Endoscopy Department Report __ _ Patient Name: Eugenia Pinzon Procedure Date: 07/27/2024 11:05 AM Date of : 1960 Classification: Outpatient Gender: Female Ethnicity: Not or Race: White __ _ Providers: Janeth Foreman MD ([place]) Referring MD: Procedure: Upper GI endoscopy Indications: Dysphagia, Follow-up of gastric polyps, personal history of CHEK2 mutation Medications: Monitored Anesthesia Care Description of Procedure: [...] were identified: the Z-line was found at 42 cm, the gastroesophageal junction was found at 42 cm and the upper extent of the gastric folds was found at 42 cm from the incisors. The examined esophagus was normal. A TTS dilator was passed through the scope. Dilation with an 18-19-20 mm x 8 cm CRE balloon dilator was performed to 20 mm. The balloon inflated to 20 mm was able to be advanced through the GE junction into the stomach without resistance. Post-dilation inspection revealed normal mucosa. Multiple 3 to 6 mm sessile polyps with no bleeding were found in the gastric fundus and in the gastric body. Approximately 10 polyps were removed with a cold snare and jumbo forceps. Resection and retrieval were complete. The examined duodenum was normal. No additional findings were observed on retroflexion in the stomach. Estimated Blood Loss: Estimated blood loss: none. Complications: No immediate complications. Impression: - Esophagogastric landmarks identified. - Normal esophagus. Dilated at GE junction to 20 mm with TTS balloon. - Multiple gastric polyps. Approximately 10 resected and retrieved. - Normal examined duodenum. Recommendation: - Resume previous diet. - Continue present medications. - Await pathology results. - Repeat upper endoscopy in 6-12 for surveillance of multiple polyps and for return of symptoms. Attending Participation: I personally performed the entire procedure. Procedure Code(s): --- Professional --- 23664, Esophagogastroduode noscopy, flexible, transoral; with removal of tumor(s), polyp(s), or other lesion(s) by snare technique 52058, Esophagogastroduode noscopy, flexible, transoral; with transendoscopic balloon dilation of esophagus (less than 30 mm diameter) Diagnosis Code(s): --- Professional --- K31.7, Polyp of stomach and duodenum R13.10, Dysphagia, unspecified CPT copyright 2021 [employer]. All rights reserved. The codes documented in this report are preliminary and upon medical coder review may be revised to meet current compliance requirements. Janeth Foreman MD ([place]) 07/27/2024 11:44:22 AM Note Initiated On: 07/27/2024 11:05 AM Number of Addenda: [address] [employer] 07/27/2024 11:0 5 AM CDT Janeth Foreman MD GI PROCEDURE REESE GUARDADO [facility] Organization Address City/State/ZIP Co de Phone Number [facility] [employer] * ENDOSCOPY, COLON, SCREENING (01/27/2024 12:33 PM VETERINARY SURGERY TECHNICIAN) Report Endoscopy POC Endoscopy Department Report _ Patient Name: Eugenia Pinzon Procedure Date: 01/27/2024 12:33 PM Date of : 1960 Classification: Outpatient Gender: Female Ethnicity: Not or Race: White _ Providers: Janeth Foreman ([place]), MD Referring MD: Procedure: Colonoscopy Indications: High risk colon cancer surveillance: Personal history of multiple (3 or more) adenomas; history of CHEK2 mutation. Last colonoscopy 07/2023. Medications: Monitored Anesthesia Care Description of Procedure: [...] perianal and digital rectal examinations were normal. A few small-mouthed diverticula were found in the sigmoid colon. External hemorrhoids were found during retroflexion. The hemorrhoids were mild. The exam was otherwise without abnormality on direct and retroflexion views. Estimated Blood Loss: Estimated blood loss: none. Complications: No immediate complications. Impression: - Diverticulosis in the sigmoid colon. - External hemorrhoids. - The examination was otherwise normal on direct and retroflexion views. - No specimens collected. Recommendation: - Resume previous diet. - Continue present medications. - Repeat colonoscopy in 1 year for surveillance, given history of CHEK2 mutation. Attending Participation: I personally performed the entire procedure. Procedure Code(s): --- Professional --- G0105, Colorectal cancer screening; colonoscopy on individual at high risk Diagnosis Code(s): --- Professional --- Z86.010, Personal history of colonic polyps K64.4, Residual hemorrhoidal skin tags K57.30, Diverticulosis of large intestine without perforation or abscess without bleeding CPT copyright 2021 [employer]. All rights reserved. The codes documented in this report are preliminary and upon medical coder review may be revised to meet current compliance requirements. Janeth Foreman MD (Labundy) 01/27/2024 1:04:40 PM Note Initiated On: 01/27/2024 12:33 PM Number of Addenda: [address] [id number] [facility] [employer] 01/27/2024 12:3 3 PM VETERINARY SURGERY TECHNICIAN Janeth Foreman MD GI PROCEDURE REESE GUARDADO [facility] [employer] * EGD (01/27/2024 11:54 AM VETERINARY SURGERY TECHNICIAN) Report Endoscopy POC Endoscopy Department Report __ _ Patient Name: Eugenia Pinzon Procedure Date: 01/27/2024 11:54 AM Date of : 1960 Classification: Outpatient Gender: Female Ethnicity: Not or Race: White __ _ Providers: Janeth Foreman MD (Labundy) Referring MD: Procedure: Upper GI endoscopy Indications: Dysphagia, history of gastric adenomas, CHEK2 mutation Medications: Monitored Anesthesia Care Description of Procedure: [...] 40 cm from the incisors. The esophagus and GE junction were patent. The examined esophagus was normal. A TTS dilator was passed through the scope. Dilation with an 18-19-20 mm x 8 cm CRE balloon dilator was performed to 20 mm. Multiple 2 to 5 mm sessile polyps with no bleeding were found in the gastric fundus and in the gastric body. Nine polyps were removed with a cold snare. Resection was complete, but the polyp tissue was only partially retrieved (not all polyps were retrieved). Mild striped erythema was observed in the gastric antrum without bleeding. The examined duodenum was normal. Retroflexion in the stomach revealed no additional abnormalities. Estimated Blood Loss: Estimated blood loss: none. Complications: No immediate complications. Impression: - Esophagogastric landmarks identified. - Normal esophagus. Dilated to 20 mm at GE junction. - Multiple gastric polyps. 9 polyps completely resected. Partial retrieval. - Striped erythema was observed in the gastric antrum without bleeding. - Normal examined duodenum. Recommendation: - Await pathology results. - Continue present medications. - Perform a colonoscopy today. - Repeat upper endoscopy in 1 year for surveillance or sooner if clinically indicated. Attending Participation: I personally performed the entire procedure. Procedure Code(s): --- Professional --- 15477, Esophagogastroduode noscopy, flexible, transoral; with removal of tumor(s), polyp(s), or other lesion(s) by snare technique 47042, Esophagogastroduode noscopy, flexible, transoral; with transendoscopic balloon dilation of esophagus (less than 30 mm diameter) Diagnosis Code(s): --- Professional --- K31.7, Polyp of stomach and duodenum R13.10, Dysphagia, unspecified CPT copyright 2021 [employer]. All rights reserved. The codes documented in this report are preliminary and upon medical coder review may be revised to meet current compliance requirements. Janeth Foreman MD (Labundy) 01/27/2024 1:07:20 PM Note Initiated On: 01/27/2024 11:54 AM Number of Addenda: [address] [employer] 01/27/2024 11:5 4 AM VETERINARY SURGERY TECHNICIAN Janeth Foreman MD [facility] Organization Address City/State/ZIP Co de Phone Number [facility] [employer] * [place] ESOPHAGRAM (10/15/2023 10:51 AM VETERINARY SURGERY TECHNICIAN) Only the most recent of6 resultswithin the time period is included. Anatomical Region Laterality Modality Chest Radiographic Ynes ging 10/15/2023 5:40 PM VETERINARY SURGERY TECHNICIAN Impressions 10/16/2023 3:31 PM VETERINARY SURGERY TECHNICIAN IMPRESSION: Slightly incomplete emptying of the esophagus, similar to the prior exam of 06/05/2023. Marked difficulty swallowing a barium pill. Otherwise normal transit of the pill. FLUOROSCOPY DOSE: 64.6 mGy Reference air kerma (ka,r). > Interpreting Provider: Maricruz Bethea MD on 10/16/2023 3:31 PM Narrative 10/16/2023 3:31 PM VETERINARY SURGERY TECHNICIAN PROCEDURE: FL ESOPHAGRAM (timed barium swallow and barium pill study) DATE/TIME OF EXAM: 10/15/2023 10:53 AM CLINICAL INFORMATION: None relevant/not provided if blank. Indication: K22.0: Achalasia R13.12: Oropharyngeal dysphagia Additional History: EGD on 08/06/2023 showed a normal GE junction. Balloon dilated to 20 mm. Gastric polyps. COMPARISON: None. TIME BARIUM SWALLOW: Small amount of contrast remained in the esophagus on images taken at 1, 2, and 5 minutes, giving the appearance of a discontinuous barium column, as given below: Discontinuous barium column at 1 minute: 12.1 x 1.2 cm Discontinuous barium column at 2 minutes: 13.1 x 1.3 cm Discontinuous barium column at 5 minutes: 12.7 x 1.3 cm BARIUM PILL STUDY: The patient had marked difficulty swallowing the barium pill. There is only transient delay of passage of the pill through the gastroesophageal junction, in part due to limited ingestion of water. Procedure Note Maricruz Bethea MD - 10/16/2023 PROCEDURE: FL ESOPHAGRAM (timed barium swallow and barium pill study) DATE/TIME OF EXAM: 10/15/2023 10:53 AM CLINICAL INFORMATION: None relevant/not provided if blank. Indication: K22.0: Achalasia R13.12: Oropharyngeal dysphagia Additional History: EGD on 08/06/2023 showed a normal GE junction. Balloon dilated to 20 mm. Gastric polyps. COMPARISON: None. TIME BARIUM SWALLOW: Small amount of contrast remained in the esophagus on images taken at 1,2, and 5 minutes, giving the appearance of a discontinuous barium column,as given below: Discontinuous barium column at 1 minute: 12.1 x 1.2 cm Discontinuous barium column at 2 minutes: 13.1 x 1.3 cm Discontinuous barium column at 5 minutes: 12.7 x 1.3 cm BARIUM PILL STUDY: The patient had marked difficulty swallowing the barium pill. There isonly transient delay of passage of the pill through the gastroesophageal junction, in part due to limited ingestion of water. IMPRESSION: Slightly incomplete emptying of the esophagus, similar to the prior examof 06/05/2023. Marked difficulty swallowing a barium pill. Otherwise normal transit ofthe pill. FLUOROSCOPY DOSE: 64.6 mGy Reference air kerma (ka,r). > Interpreting Provider: Maricruz Bethea MD on 10/16/2023 3:31 PM Janeth Foreman MD FLUOROSCOPY ORDER ERLIN * FL MODIFIED BARIUM SWALLOW W/SPEECH (09/03/2023 11:00 AM CDT) Anatomical Region Laterality Modality Chest Radiographic Ynes ging 09/03/2023 11:0 5 AM CDT Narrative 09/03/2023 2:22 PM CDT PROCEDURE: FL SWALLOWING FUNCTION STUDY, DATE/TIME OF EXAM: 09/03/2023 9:59 AM, LOCATION [facility] INDICATION: R13.12: Oropharyngeal dysphagia ADDITIONAL CLINICAL INFORMATION: Ordering Provider Reason For Exam: Patient with history of MS. Also remote history of achalasia s/p pneumatic dilation. Choking senstion currently. Recent timed esophagram revealed normal emptying. Recent EGD with empiric dilation unremarkable. Is there an oropharyngeal component? Thx COMPARISON: Timed barium esophagram dated 06/05/2023. FINDINGS: FLUOROSCOPY DOSE: 10.2 mGy Reference air kerma (ka,r). FLUOROSCOPY TIME: 3.7 minutes; Number of images: [id number] TECHNIQUE: Modified barium swallow fluoroscopy performed in conjunction with speech pathology staff. The speech pathologist administered varying thickness barium liquids and solids under direct Cine fluoroscopy. FINDINGS/IMPRESSION: Fluoroscopic assistance was provided for a modified barium swallow test performed by Speech Therapy. Please see the Speech Therapy report for details. Report dictated by Ching Casanova DO (residential electrician). I, Jayro Lawson MD have personally reviewed and interpreted this examination/study. > Interpreting Provider: Jayro Lawson MD on 09/03/2023 2:22 PM Procedure Note Jayro Lawson MD - 09/03/2023 PROCEDURE: FL SWALLOWING FUNCTION STUDY, DATE/TIME OF EXAM: 09/03/2023 9:59 AM, LOCATION [facility] INDICATION: R13.12: Oropharyngeal dysphagia ADDITIONAL CLINICAL INFORMATION: Ordering Provider Reason For Exam: Patient with history of MS. Alsoremote history of achalasia s/p pneumatic dilation. Choking senstion currently. Recent timed esophagram revealed normal emptying. Recent EGD withempiric dilation unremarkable. Is there an oropharyngeal component? Thx COMPARISON: Timed barium esophagram dated 06/05/2023. FINDINGS: FLUOROSCOPY DOSE: 10.2 mGy Reference air kerma (ka,r). FLUOROSCOPY TIME: 3.7 minutes; Number of images: [id number] TECHNIQUE: Modified barium swallow fluoroscopy performed in conjunction with speech pathology staff. The speech pathologist administered varying thickness barium liquids and solids under direct Cine fluoroscopy. FINDINGS/IMPRESSION: Fluoroscopic assistance was provided for a modified barium swallow test performed by Speech Therapy. Please see the Speech Therapy report for details. Report dictated by Ching Casanova DO (residential electrician). I, Jayro Lawson MD have personally reviewed and interpreted this examination/study. > Interpreting Provider: Jayro Lawson MD on 09/03/2023 2:22 PM Janeth Foremna MD FLUOROSCOPY ORDER ERLIN * ENDOSCOPY, COLON, SCREENING (08/06/2023 10:34 AM CDT) Report Endoscopy POC Endoscopy Department Report _ Patient Name: Eugenia Pinzon Procedure Date: 08/06/2023 10:34 AM Date of : 1960 Classification: Outpatient Gender: Female Ethnicity: Not or Race: White _ Providers: Janeth Foreman MD (Labundy) Referring MD: Procedure: Colonoscopy Indications: High risk colon cancer surveillance: Personal history of multiple (3 or more) adenomas; known CHEK2 mutation Medications: Monitored Anesthesia Care Description of Procedure: [...] and oxygen saturations were monitored continuously. The [id number]-[id number] was introduced through the anus and advanced to the cecum, identified by appendiceal orifice and ileocecal valve. The colonoscopy was performed without difficulty. The patient tolerated the procedure well. The quality of the bowel preparation was good. The ileocecal valve, appendiceal orifice, and rectum were photographed. Findings: Hemorrhoids were found on perianal exam. Multiple small-mouthed diverticula were found in the sigmoid colon. The exam was otherwise without abnormality on direct and retroflexion views. Estimated Blood Loss: Estimated blood loss: none. Complications: No immediate complications. Impression: - Hemorrhoids found on perianal exam. - Diverticulosis in the sigmoid colon. - The examination was otherwise normal on direct and retroflexion views. - No specimens collected. Recommendation: - Resume previous diet. - Continue present medications. - Repeat colonoscopy in 1-2 years for surveillance, given history of CHEK2 mutation. Attending Participation: I personally performed the entire procedure. Procedure Code(s): --- Professional --- G0105, Colorectal cancer screening; colonoscopy on individual at high risk Diagnosis Code(s): --- Professional --- Z86.010, Personal history of colonic polyps K64.9, Unspecified hemorrhoids K57.30, Diverticulosis of large intestine without perforation or abscess without bleeding CPT copyright 2021 [employer]. All rights reserved. The codes documented in this report are preliminary and upon medical coder review may be revised to meet current compliance requirements. Janeth Foreman MD (Labundy) 08/06/2023 11:03:51 AM Note Initiated On: 08/06/2023 10:34 AM Number of Addenda: 0 [place] [id number] [facility] [employer] 08/06/2023 10:3 4 AM CDT Janeth Foreman MD GI PROCEDURE TYLORE DEBBY [facility] [employer] * EGD (08/06/2023 10:00 AM CDT) Report Endoscopy POC Endoscopy Department Report _ Patient Name: Eugenia Pinzon Procedure Date: 08/06/2023 10:00 AM Date of : 1960 Classification: Outpatient Gender: Female Ethnicity: Not or Race: White _ Providers: Janeth Foreman (Labundy)MD, Tenzin Weiss (Fellow) Referring MD: Procedure: Upper GI endoscopy Indications: Dysphagia, gastric adenomas in setting of known CHEK2 mutation Medications: Monitored Anesthesia Care Description of Procedure: [...] patient has taken no anticoagulant or antiplatelet agents except for aspirin. ASA Grade Assessment: II - A patient with mild systemic disease. After reviewing the risks and benefits, the patient was deemed in satisfactory condition to undergo the procedure. After obtaining informed consent, the endoscope was passed under direct vision. Throughout the procedure, the patient's blood pressure, pulse, and oxygen saturations were monitored continuously. The GIF-HQ190 was introduced through the mouth, and advanced to the second part of duodenum. The upper GI endoscopy was accomplished without difficulty. The patient tolerated the procedure well. Findings: The esophagus and GE junction appeared normal and patent. Given patient's dysphagia and prior improvement with dilation, a TTS dilator was passed through the scope. Dilation with an 18-19-20 mm balloon dilator was performed to 20 mm. The dilation site was examined following endoscope reinsertion and showed no change. Estimated blood loss: none. A single area of ectopic gastric mucosa was found in the proximal esophagus. The exam of the esophagus was otherwise normal. Patchy linear moderately erythematous mucosa without bleeding was found in the gastric antrum. This was biopsied with a cold forceps for histology. Estimated blood loss was minimal. Multiple sessile subcentimeter polyps with no bleeding and no stigmata of recent bleeding were found on the greater curvature of the stomach. This was biopsied with a cold forceps for histology. Estimated blood loss was minimal. The exam of the stomach was otherwise normal. The cardia and gastric fundus were normal on retroflexion. The examined duodenum was normal. Estimated Blood Loss: Estimated blood loss was minimal. Complications: No immediate complications. Impression: - Normal appearing GE junction. Dilated w balloon to 20mm. 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 - Erythematous and edematous mucosa in the antrum. Biopsied. - Multiple gastric polyps. Biopsied. - Normal examined duodenum. Recommendation: - Discharge patient to home. - Mechanical soft diet today. - Continue present medications. - Await pathology results. - Repeat EGD in one year for gastric adenoma surveillance. - Patient has a contact number available for emergencies. The signs and symptoms of potential delayed complications were discussed with the patient. Return to normal activities tomorrow. Written discharge instructions were provided to the patient. Attending Participation: I was present and participated during the entire procedure, including non-young portions. Procedure Code(s): --- Professional --- 82934, Esophagogastroduod enoscopy, flexible, transoral; with transendoscopic balloon dilation of esophagus (less than 30 mm diameter) 11624, 59, Esophagogastroduod enoscopy, flexible, transoral; with biopsy, single or multiple Diagnosis Code(s): --- Professional --- K22.2, Esophageal obstruction Q40.2, Other specified congenital malformations of stomach K31.89, Other diseases of stomach and duodenum K31.7, Polyp of stomach and duodenum R13.10, Dysphagia, unspecified CPT copyright 2021 [employer]. All rights reserved. The codes documented in this report are preliminary and upon medical coder review may be revised to meet current compliance requirements. Janeth Foreman MD (Labundy) 08/06/2023 11:08:39 AM Note Initiated On: 08/06/2023 10:00 AM Number of Addenda: [address] [employer] 08/06/2023 10:0 0 AM CDT Janeth Foreman MD GI PROCEDURE REESE GUARDADO [facility] Organization Address City/State/ZIP Co de Phone Number [facility] [employer] * EGD (04/08/2023 10:21 AM CDT) Report Endoscopy POC Endoscopy Department Report __ _ Patient Name: Eugenia Pinzon Procedure Date: 04/08/2023 10:21 AM Date of : 1960 Classification: Outpatient Gender: Female Ethnicity: Not or Race: White __ _ Providers: Janeth Foreman (Labundy)MD, Marcelo Leavitt (Fellow) Referring MD: Procedure: Upper GI endoscopy Indications: Dysphagia, Follow-up of gastric polyps, History of CHEK2 mutation with gastric polyps with dysplasia Medications: Monitored Anesthesia Care Description of Procedure: [...] Prior Anticoagulants: The patient has taken no previous anticoagulant or antiplatelet agents. After reviewing the risks and benefits, the [...] were identified: the Z-line was found at 42 cm, the gastroesophageal junction was found at 42 cm and the site of hiatal narrowing was found at 42 cm from the incisors. The examined esophagus was normal. The GE junction was somewhat tight with passage of the scope into the stomach. However, it was able to be advanced into the stomach without difficulty. A TTS dilator was passed through the scope. Dilation with an 18-19-20 mm balloon dilator was performed to 20 mm. The dilation site was examined and showed a wide open GE junction. A few 2-8 mm sessile polyps with no bleeding were found in the gastric body. The largest polyps were removed with a cold snare (approximately 5). Resection and retrieval were complete. The cardia and gastric fundus were otherwise normal on retroflexion. The examined duodenum was normal. As the scope was withdrawn, a small gastric inlet patch was observed in the proximal esophagus. This can contribute to the patient's chronic reflux symptoms. Estimated Blood Loss: Estimated blood loss: none. Complications: No immediate complications. Impression: - Esophagogastric landmarks identified. - Gastric inlet patch in proximal esophagus. Otherwise normal esophagus. Dilated to 20mm at GE junction. - A few gastric polyps. Resected and retrieved. - Normal examined duodenum. Recommendation: - Resume previous diet. - Continue present medications. - Await pathology results. - Repeat upper endoscopy in 6 months for surveillance. Attending Participation: I personally performed the entire procedure. Procedure Code(s): --- Professional --- 06272, Esophagogastroduode noscopy, flexible, transoral; with removal of tumor(s), polyp(s), or other lesion(s) by snare technique 05747, Esophagogastroduode noscopy, flexible, transoral; with transendoscopic balloon dilation of esophagus (less than 30 mm diameter) Diagnosis Code(s): --- Professional --- K31.7, Polyp of stomach and duodenum R13.10, Dysphagia, unspecified CPT copyright 2019 [employer]. All rights reserved. The codes documented in this report are preliminary and upon medical coder review may be revised to meet current compliance requirements. Janeth Foreman MD (Labundy) 04/08/2023 11:05:07 AM Note Initiated On: 04/08/2023 10:21 AM Number of Addenda: [address] [employer] 04/08/2023 10:2 1 AM CDT Janeth Foreman MD GI PROCEDURE REESE GUARDADO [facility] [employer] * DERMATOPATHOLOGY (01/15/2023 12:00 AM VETERINARY SURGERY TECHNICIAN) Case Report Dermatopathology Report Case: [id number] Authorizing Provider: Dario Pérez MD Collected: 01/15/2023 12:00 AM Ordering Location: [facility] Received: 01/15/2023 04:51 PM Pathologist: Goldie Choudhary MD Specimen: Skin, left thumb 3 11:02 AM [facility] Final Diagnosis Specimen A. SKIN, left thumb: VERRUCA PLANA (B07.8) 3 11:02 AM [facility] Clinical History Patch/plaque eczema, contact, Reena, [facility], [place] 3 11:02 AM [facility] Gross Description Specimen A: Received is one formalin filled container labeled with the patient's name and designated left thumb. The specimen consists of a shave biopsy measuring 8x4x1 mm. Jar 0. 3 11:02 AM [facility] Microscopic Description Specimen A. SKIN, left thumb: There is gently papillated epidermal hyperplasia, hypergranulosis, and laminated hyperorthokeratosis . 3 11:02 AM [facility] Disclaimer An external and internal positive and negative controls are appropriate for the histochemical, immunohistochemical and immunofluorescence stain(s) in this case (if any), except where stated explicitly. The performance characteristics of the stain(s) cited in this report were developed and its performance characteristic determined by the Dermatopathology Laboratory at [facility], directed by Dr. Ced Salazar. These tests need not be, and therefore are not, approved by the [place] Food and Drug Administration. The tests are used for clinical purposes. Billing Codes Specimen Charges Stain Charges 53583 1 3 11:02 AM [facility] Embedded Images 3 11:02 AM [facility] Pathology/Cytolog y TISSUE SPECIMEN FROM SKIN / Unknown 01/15/2023 01/15/2023 4:51 PM VETERINARY SURGERY TECHNICIAN Dario Pérez MD LAB - PATHOLOGY/[facility] DERMATOPATHOLOGY LABORATORY [facility] - Department of Dermatology [address] [phone] * EGD (11/26/2022 9:59 AM VETERINARY SURGERY TECHNICIAN) Report Endoscopy POC Endoscopy Department Report _ Patient Name: Eugenia Pinzon Procedure Date: 11/26/2022 9:59 AM Date of : 1960 Classification: Outpatient Gender: Female Ethnicity: Not or Race: White _ Providers: Janeth Foreman (Labundy)MD, Alfred Byers (Fellow) Referring MD: Rod Buckner (Referring MD) Procedure: Colonoscopy Indications: High risk colon cancer surveillance: Personal history of colonic polyps with dysplasia. Patient with known CHEK2 mutation. Medications: Monitored Anesthesia Care Description of Procedure: [...] Prior Anticoagulants: The patient has taken no previous anticoagulant or antiplatelet agents. ASA Grade Assessment: [...] continuously. The Colonoscope was introduced through the and advanced to. The colonoscopy was performed without difficulty. The patient tolerated the procedure well. The quality of the bowel preparation was good. The ileocecal valve, appendiceal orifice, and rectum were photographed. Findings: Hemorrhoids and skin tags were found on perianal exam. A few small-mouthed diverticula were found in the sigmoid colon. Non-bleeding external and internal hemorrhoids were found during retroflexion. The hemorrhoids were mild. The exam was otherwise without abnormality on direct and retroflexion views. Estimated Blood Loss: Estimated blood loss: none. Complications: No immediate complications. Impression: - Hemorrhoids found on perianal exam. - Diverticulosis in the sigmoid colon. - Non-bleeding external and internal hemorrhoids. - Otherwise normal colon. - No specimens collected. Recommendation: - Resume previous diet. - Continue present medications. - Repeat colonoscopy in 1 year for surveillance due to CHEK2 mutation. Diagnosis Code(s): --- Professional --- Z86.010, Personal history of colonic polyps K64.8, Other hemorrhoids K57.30, Diverticulosis of large intestine without perforation or abscess without bleeding Janeth Foreman MD (Labundy) 11/26/2022 10:38:11 AM Note Initiated On: 11/26/2022 9:59 AM Number of Addenda: [phone] [place] [address] [employer] 11/26/2022 9:59 AM VETERINARY SURGERY TECHNICIAN Janeth Foreman MD GI PROCEDURE REESE GUARDADO [facility] Organization Address City/State/ZIP Co de Phone Number [facility] [employer] * EGD (11/26/2022 8:29 AM VETERINARY SURGERY TECHNICIAN) Report Endoscopy POC Endoscopy Department Report __ _ Patient Name: Eugenia Pinzon Procedure Date: 11/26/2022 8:29 AM Date of : 1960 Classification: Outpatient Gender: Female Ethnicity: Not or Race: White __ _ Providers: Janeth Foreman (Labundy)MD, Alfred Byers (Fellow) Referring MD: Rod Buckner (Referring MD) Procedure: Upper GI endoscopy Indications: Dysphagia, Follow-up of fundic gland polyps with low-grade dysplasia. History of CHEK2 mutation. Medications: Monitored Anesthesia Care Description of Procedure: [...] Prior Anticoagulants: The patient has taken no previous anticoagulant or antiplatelet agents. ASA Grade Assessment: III - A patient with severe systemic disease. After reviewing the risks and benefits, the patient was deemed in satisfactory condition to undergo the procedure. After obtaining informed consent, the endoscope was passed under direct vision. Throughout the procedure, the patient's blood pressure, pulse, and oxygen saturations were monitored continuously. The was introduced through the mouth, and advanced to the third part of duodenum. The upper GI endoscopy was accomplished without difficulty. The patient tolerated the procedure well. Findings: Esophagogastric landmarks were identified: the Z-line was found at 43 cm, the gastroesophageal junction was found at 43 cm and the site of hiatal narrowing was found at 43 cm from the incisors. The esophagus was normal with patent GE junction. Multiple 2 to 4 mm sessile polyps with no bleeding and no stigmata of recent bleeding were found in the gastric body. The polyp was removed with a cold snare or cold forceps depending on size. Resection and retrieval were complete. Not all polyps were removed, but the largest were taken. A single 2 mm sessile polyp with no bleeding was found in the second portion of the duodenum. The polyp was removed with a cold biopsy forceps. Resection and retrieval were complete. The exam of the duodenum was otherwise normal. A TTS dilator was passed through the scope. Dilation with an 18-19-20 mm balloon dilator was performed to 20 mm at the gastroesophageal junction and distal esophagus. Estimated Blood Loss: Estimated blood loss: none. Complications: Of note, the balloon ruptured after being inflated with water for 20 seconds. It was unable to be withdrawn into the scope. The entire scope and balloon dilator were then removed in one step. The balloon was inspected and appeared to be intact. The scope was reintroduced into the esophagus and stomach. No fragments of balloon were observed. No other immediate complications. Impression: - Esophagogastric landmarks identified. - Normal esophagus. - Multiple gastric polyps. Resected and retrieved. - A single duodenal polyp. Resected and retrieved. - Dilation performed at the gastroesophageal junction to 20 mm. Recommendation: - Await pathology results. - Perform a colonoscopy today. - Repeat approximately upper endoscopy in 1 year or prn for retreatment and polyp surveillance. Attending Participation: I was present and participated during the entire procedure, including non-young portions. Procedure Code(s): --- Professional --- 67887, Esophagogastroduode noscopy, flexible, transoral; with transendoscopic balloon dilation of esophagus (less than 30 mm diameter) Diagnosis Code(s): --- Professional --- K31.7, Polyp of stomach and duodenum R13.10, Dysphagia, unspecified CPT copyright 2019 [employer]. All rights reserved. The codes documented in this report are preliminary and upon medical coder review may be revised to meet current compliance requirements. Janeth Foreman MD ([place]) 11/26/2022 10:41:14 AM Note Initiated On: 11/26/2022 8:29 AM Number of Addenda: [id number] [place] [address] [employer] 11/26/2022 8:29 AM VETERINARY SURGERY TECHNICIAN Janeth Foreman MD GI PROCEDURE ORDLeonel GUARDADO [facility] [employer] * PATHOLOGY/CYTOLOGY REPORT ORDER (11/12/2022) Only the most recent of2 resultswithin the time period is included. 11/12/2022 Narrative 11/12/2022 Ordered by an unspecified provider. Scanned Document LAB - PATHOLOGY/CYTO LOGY ORDERABLES * ENDOSCOPY, COLON, SCREENING (05/21/2022 11:15 AM CDT) Report Endoscopy POC Endoscopy Department Report _ Patient Name: Eugenia Pinzon Procedure Date: 05/21/2022 11:15 AM Date of : 1960 Classification: Outpatient Gender: Female Ethnicity: Not or Race: White _ Providers: Janeth Foreman ([place])MD, Allan Myles (Fellow) Referring MD: Rod Buckner (Referring MD) Procedure: Colonoscopy Indications: High risk colon cancer surveillance: Personal history of adenoma less than 10 mm in size, hx of CHEK 2 mutation. last colonoscopy 11/2021 Medications: Monitored Anesthesia Care Description of Procedure: [...] Prior Anticoagulants: The patient has taken no previous anticoagulant or antiplatelet agents. ASA Grade Assessment: [...] appendiceal orifice, and rectum were photographed. Findings: Skin tags were found on perianal exam. A few small-mouthed diverticula were found in the left colon. Internal hemorrhoids were found during retroflexion. Estimated Blood Loss: Estimated blood loss: none. Complications: No immediate complications. Impression: - Perianal skin tags found on perianal exam. - Diverticulosis in the left colon. - Internal hemorrhoids. - No specimens collected. Recommendation: - Patient has a contact number available for emergencies. The signs and symptoms of potential delayed complications were discussed with the patient. Return to normal activities tomorrow. Written discharge instructions were provided to the patient. - Discharge patient to home (with escort). - Resume previous diet. - Continue present medications. - Repeat colonoscopy for surveillance in one year - Return to GI clinic as previously scheduled. Attending Participation: I was present and participated during the entire procedure, including non-young portions. Procedure Code(s): --- Professional --- G0105, Colorectal cancer screening; colonoscopy on individual at high risk Diagnosis Code(s): --- Professional --- Z86.010, Personal history of colonic polyps K64.8, Other hemorrhoids K64.4, Residual hemorrhoidal skin tags K57.30, Diverticulosis of large intestine without perforation or abscess without bleeding CPT copyright 2019 [employer]. All rights reserved. The codes documented in this report are preliminary and upon medical coder review may be revised to meet current compliance requirements. Janeth Foreman MD ([place]) 05/21/2022 11:50:14 AM Note Initiated On: 05/21/2022 11:15 AM Number of Addenda: [address] [id number] [facility] [employer] 05/21/2022 11:1 5 AM CDT Janeth Foreman MD GI PROCEDURE REESE GUARDADO [facility] [employer] * EGD (05/21/2022 10:45 AM CDT) Report Endoscopy POC Endoscopy Department Report __ _ Patient Name: Eugenia Pinzon Procedure Date: 05/21/2022 10:45 AM Date of : 1960 Classification: Outpatient Gender: Female Ethnicity: Not or Race: White __ _ Providers: Janeth Foreman MD ([place]), Allan Myles (Fellow) Referring MD: Rod Buckner (Referring MD) Procedure: Upper GI endoscopy Indications: Dysphagia, Follow-up of gastric polyps with adenomatous change; history of CHEK2 mutation Medications: Monitored Anesthesia Care, lidocaine spray topical Description of Procedure: Pre-Anesthesia Assessment: - Prior [...] Prior Anticoagulants: The patient has taken no previous anticoagulant or antiplatelet agents. ASA Grade Assessment: [...] through the mouth, and advanced to the second part of duodenum. The upper GI endoscopy was accomplished without difficulty. The patient tolerated the procedure well. Findings: Esophagogastric landmarks were identified: the Z-line was found at 38 cm, the gastroesophageal junction was found at 38 cm and the site of hiatal narrowing was found at 40 cm from the incisors. Consistent with 2 cm sliding hiatal hernia. The esophagus was normal. The GE junction was traversed without difficulty. Multiple small sessile polyps with no bleeding were found in the gastric fundus and in the gastric body. Polyps greater than 5 mm or those that had an atypical appearance were removed with a cold snare or jumbo forceps. Four polyps total were removed. Resection and retrieval were complete. The examined duodenum was normal. Retroflexion in the stomach revealed no additional abnormalities. A guidewire was placed and the scope was withdrawn. Dilation was performed in the entire esophagus with a Savary dilator with mild resistance at 19 mm. A small amount of heme was present on the dilator after dilation. The endoscope was reintroduced into the esophagus and stomach. A superficial mucosal tear was observed in the proximal esophagus. Estimated Blood Loss: Estimated blood loss: none. Complications: No immediate complications. Impression: - Esophagogastric landmarks identified. Two cm sliding hiatal hernia. - Normal esophagus. - Multiple small gastric polyps. Resected and retrieved as described above. - Normal examined duodenum. - Dilation performed in the entire esophagus with Savary dilator 19mm. Recommendation: - Await pathology results. - Repeat upper endoscopy in 1 year for surveillance. - Perform a colonoscopy today. - Continue present medications. Attending Participation: I was present and participated during the entire procedure, including non-young portions. Procedure Code(s): --- Professional --- 33385, Esophagogastroduode noscopy, flexible, transoral; with removal of tumor(s), polyp(s), or other lesion(s) by snare technique 32595, Esophagogastroduode noscopy, flexible, transoral; with insertion of guide wire followed by passage of dilator(s) through esophagus over guide wire Diagnosis Code(s): --- Professional --- K31.7, Polyp of stomach and duodenum R13.10, Dysphagia, unspecified CPT copyright 2019 [employer]. All rights reserved. The codes documented in this report are preliminary and upon medical coder review may be revised to meet current compliance requirements. Janeth Foreman MD ([place]) 05/21/2022 11:25:29 AM Note Initiated On: 05/21/2022 10:45 AM Number of Addenda: [address] [employer] 05/21/2022 10:4 5 AM CDT Janeth Foreman MD GI PROCEDURE REESE GUARDADO [facility] Organization Address City/State/ZIP Co de Phone Number [facility] [employer] * EGD (12/25/2021 10:38 AM VETERINARY SURGERY TECHNICIAN) Report Endoscopy POC Endoscopy Department Report __ _ Patient Name: Eugenia Pinzon Procedure Date: 12/25/2021 10:38 AM Date of : 1960 Classification: Outpatient Gender: Female Ethnicity: Not or Race: White __ _ Providers: Janeth Titus MD Referring MD: Rod Buckner (Referring MD) Procedure: Upper GI endoscopy Indications: Dysphagia, Follow-up of gastric polyps Medications: Monitored Anesthesia Care Description of [...] Prior Anticoagulants: The patient has taken no previous anticoagulant or antiplatelet agents. ASA Grade Assessment: III - A patient with severe systemic disease. After reviewing the risks and benefits, the patient was deemed in satisfactory condition to undergo the procedure. After obtaining informed consent, the endoscope was passed under direct vision. Throughout the procedure, the patient's blood pressure, pulse, and oxygen saturations were monitored continuously. The [id number]-[id number] was introduced through the mouth, and advanced to the third part of duodenum. The upper GI endoscopy was accomplished without difficulty. The patient tolerated the procedure well. Findings: Esophagogastric landmarks were identified: the Z-line was found at 41 cm, the gastroesophageal junction was found at 41 cm and the site of hiatal narrowing was found at 43 cm from the incisors. This is consistent with a 2 cm sliding hiatal hernia. The esophagus was normal. Multiple 3 to 6 mm sessile polyps with no bleeding and no stigmata of recent bleeding were found in the gastric body. The polyp were removed with a jumbo cold forceps. Approximately 12 small polyps were removed. Resection and retrieval were complete. The examined duodenum was normal. The cardia and gastric fundus were normal on retroflexion. A guidewire was placed and the scope was withdrawn. Dilation was performed in the entire esophagus and GE junction with a Savary dilator with mild resistance at 18 mm. The scope was then reintroduced and the esophagus and stomach were examined. No evidence of esophageal tear was observed. A small amount of heme was present on the dilator post dilation. Estimated Blood Loss: Estimated blood loss: none. Complications: No immediate complications. Impression: - Esophagogastric landmarks identified. - Normal esophagus. - Multiple gastric polyps. Resected and retrieved. - Normal examined duodenum. - Dilation performed in the entire esophagus and GE junction to 18 mm. Recommendation: - Await pathology results. - Repeat upper endoscopy in 1 year for surveillance. - Perform a colonoscopy today. Attending Participation: I personally performed the entire procedure. Procedure Code(s): --- Professional --- 99132, Esophagogastroduode noscopy, flexible, transoral; with insertion of guide wire followed by passage of dilator(s) through esophagus over guide wire Diagnosis Code(s): --- Professional --- K31.7, Polyp of stomach and duodenum R13.10, Dysphagia, unspecified CPT copyright 2019 [employer]. All rights reserved. The codes documented in this report are preliminary and upon medical coder review may be revised to meet current compliance requirements. ___ Janeth Titus MD 12/25/2021 11:19:13 AM Note Initiated On: 12/25/2021 10:38 AM Number of Addenda: [address] [employer] 12/25/2021 10:3 8 AM VETERINARY SURGERY TECHNICIAN Janeth Foreman MD GI PROCEDURE ORDE DEBBY [facility] Organization Address City/State/ZIP Co de Phone Number [facility] [employer] * ENDOSCOPY, COLON, SCREENING (12/25/2021 10:37 AM VETERINARY SURGERY TECHNICIAN) Report Endoscopy POC Endoscopy Department Report _ Patient Name: Eugenia Pinzon Procedure Date: 12/25/2021 10:37 AM Date of : 1960 Classification: Outpatient Gender: Female Ethnicity: Not or Race: White _ Providers: Janeth Titus MD, Khalif Mcguire (Fellow) Referring MD: Rod Buckner (Referring MD) Procedure: Colonoscopy Indications: High risk colon cancer surveillance: Personal history of adenomatous colonic polyps, , History of CHEK2 mutation, last colonoscopy 04/2021 Medications: Monitored Anesthesia Care Description of Procedure: [...] Prior Anticoagulants: The patient has taken no previous anticoagulant or antiplatelet agents. ASA Grade Assessment: III - A patient with severe systemic disease. After reviewing the risks and benefits, the patient was deemed in satisfactory condition to undergo the procedure. After I obtained informed consent, the scope was passed under direct vision. Throughout the procedure, the patient's blood pressure, pulse, and oxygen saturations were monitored continuously. The [id number] was introduced through the anus and advanced to the cecum, identified by appendiceal orifice and ileocecal valve. The colonoscopy was performed without difficulty. The patient tolerated the procedure well. The quality of the bowel preparation was good. The ileocecal valve, appendiceal orifice, and rectum were photographed. Findings: Hemorrhoids were found on perianal exam. Two sessile polyps were found in the sigmoid colon and cecum. The polyps were 3 to 4 mm in size. These polyps were removed with a jumbo cold forceps. Resection and retrieval were complete. The retroflexed view of the distal rectum and anal verge was normal and showed no anal or rectal abnormalities. Multiple small and large-mouthed diverticula were found in the sigmoid colon and descending colon. There was no evidence of diverticular bleeding. Estimated Blood Loss: Estimated blood loss was minimal. Complications: No immediate complications. Impression: - Hemorrhoids found on perianal exam. - Two 3 to 4 mm polyps in the sigmoid colon and in the cecum, removed with a jumbo cold forceps. Resected and retrieved. - The distal rectum and anal verge are normal on retroflexion view. - Diverticulosis in the sigmoid colon and in the descending colon. There was no evidence of diverticular bleeding. Recommendation: - Patient has a contact number available for emergencies. The signs and symptoms of potential delayed complications were discussed with the patient. Return to normal activities tomorrow. Written discharge instructions were provided to the patient. - Resume previous diet. - Continue present medications. - Await pathology results. - Repeat colonoscopy date to be determined after pending pathology results are reviewed for surveillance. - Return to referring physician as previously scheduled. Attending Participation: I was present and participated during the entire procedure, including non-young portions. Procedure Code(s): --- Professional --- 47296, Colonoscopy, flexible; with biopsy, single or multiple Diagnosis Code(s): --- Professional --- Z86.010, Personal history of colonic polyps K64.9, Unspecified hemorrhoids K63.5, Polyp of colon CPT copyright 2019 [employer]. All rights reserved. The codes documented in this report are preliminary and upon medical coder review may be revised to meet current compliance requirements. ____ Janeth Titus MD 12/25/2021 11:48:04 AM Note Initiated On: 12/25/2021 10:37 AM Number of Addenda: [address] [address] [facility] [employer] 12/25/2021 10:3 7 AM VETERINARY SURGERY TECHNICIAN Janeth Foreman MD GI PROCEDURE TYLORE DEBBY [facility] Organization Address City/State/ZIP Co de Phone Number [facility] [place] * ENDOSCOPY, COLON, SCREENING (05/15/2021 9:32 AM CDT) Report Endoscopy POC Endoscopy Department Report _ Patient Name: Eugenia Pinzon Procedure Date: 05/15/2021 9:32 AM Date of : 1960 Classification: Outpatient Gender: Female Ethnicity: Not or Race: White _ Providers: Janeth Titus MD Referring MD: Rod Buckner (Referring Provider) Procedure: Colonoscopy Indications: High risk colon cancer surveillance: Personal history of colonic polyps. History of CHEK2 mutation. Last colonoscopy 07/2020 with fair prep Medications: Monitored Anesthesia Care Description of Procedure: [...] Prior Anticoagulants: The patient has taken no previous anticoagulant or antiplatelet agents. ASA Grade Assessment: III - A patient with severe systemic disease. After reviewing the risks and benefits, the patient was deemed in satisfactory condition to undergo the procedure. After I obtained informed consent, the scope was passed under direct vision. Throughout the procedure, the patient's blood pressure, pulse, and oxygen saturations were monitored continuously. The [id number]-[id number] was introduced through the anus and advanced to the cecum, identified by appendiceal orifice and ileocecal valve. The colonoscopy was performed without difficulty. The patient tolerated the procedure well. The quality of the bowel preparation was good. The ileocecal valve, appendiceal orifice, and rectum were photographed. Findings: Hemorrhoids were found on perianal exam. Three 2 to 4 mm polyps were found in the sigmoid colon. The polyps were sessile. The polyps were removed with a jumbo cold forceps. Resection and retrieval were complete. A few small-mouthed diverticula were found in the sigmoid colon and descending colon. Non-bleeding external and internal hemorrhoids were found during retroflexion. The hemorrhoids were medium-sized. Estimated Blood Loss: Estimated blood loss: none. Complications: No immediate complications. Impression: - Hemorrhoids found on perianal exam. - Three 2 to 4 mm polyps in the sigmoid colon, removed with a jumbo cold forceps. Resected and retrieved. - Diverticulosis in the sigmoid colon and in the descending colon. - Non-bleeding external and internal hemorrhoids. Recommendation: - Resume previous diet. - Continue present medications. - Await pathology results. - Repeat colonoscopy in 1 year for surveillance. - Return to GI clinic as previously scheduled. Attending Participation: I personally performed the entire procedure. Procedure Code(s): --- Professional --- 41361, Colonoscopy, flexible; with biopsy, single or multiple Diagnosis Code(s): --- Professional --- Z86.010, Personal history of colonic polyps K64.8, Other hemorrhoids K63.5, Polyp of colon K57.30, Diverticulosis of large intestine without perforation or abscess without bleeding CPT copyright 2019 [employer]. All rights reserved. The codes documented in this report are preliminary and upon medical coder review may be revised to meet current compliance requirements. ____ Janeth Titus MD 05/15/2021 10:08:37 AM Note Initiated On: 05/15/2021 9:32 AM Number of Addenda: [address] [address] [facility] [employer] 05/15/2021 9:32 AM CDT Janeth Foreman MD GI PROCEDURE REESE GUARDADO [facility] Organization Address City/State/ZIP Co de Phone Number [facility] [employer] * EGD (05/15/2021 8:51 AM CDT) Report Endoscopy POC Endoscopy Department Report __ _ Patient Name: Eugenia Pinzon Procedure Date: 05/15/2021 8:51 AM Date of : 1960 Classification: Outpatient Gender: Female Ethnicity: Not or Race: White __ _ Providers: Janeth Titus MD, Marie Addison (Fellow) Referring MD: Rod Buckner (Referring Provider) Procedure: Upper GI endoscopy Indications: Dysphagia, Follow-up of adenomatous gastric polyps; CHEK 2 mutation Medications: Monitored Anesthesia Care Description of Procedure: [...] Prior Anticoagulants: The patient has taken no previous anticoagulant or antiplatelet agents. ASA Grade Assessment: [...] from the incisors. The esophagus was normal. Multiple small sessile polyps with no bleeding were found in the gastric fundus and in the gastric body. No polyps were observed to be larger than 1 cm in size. Eight were removed with a cold snare. Resection was complete. Not all polyps might have been retrieved. The cardia and gastric fundus were otherwise normal on retroflexion. The examined duodenum was normal. A guidewire was placed and the scope was withdrawn. Dilation was performed in the entire esophagus with a Savary dilator with no resistance at 17 mm. No heme was observed post dilation. Estimated Blood Loss: Estimated blood loss: none. Complications: No immediate complications. Impression: - Esophagogastric landmarks identified. - Normal esophagus. - Multiple gastric polyps. 8 resected and retrieved. - Normal examined duodenum. - Dilation performed in the entire esophagus to 17 mm. Recommendation: - Await pathology results. - Perform a colonoscopy today. - Repeat upper endoscopy in 1 year for surveillance. Attending Participation: I was present and participated during the entire procedure, including non-young portions. Procedure Code(s): --- Professional --- 85802, Esophagogastroduode noscopy, flexible, transoral; with removal of tumor(s), polyp(s), or other lesion(s) by snare technique 54098, Esophagogastroduode noscopy, flexible, transoral; with insertion of guide wire followed by passage of dilator(s) through esophagus over guide wire Diagnosis Code(s): --- Professional --- K31.7, Polyp of stomach and duodenum R13.10, Dysphagia, unspecified CPT copyright 2019 [employer]. All rights reserved. The codes documented in this report are preliminary and upon medical coder review may be revised to meet current compliance requirements. ___ Janeth Titus MD 05/15/2021 10:13:39 AM Note Initiated On: 05/15/2021 8:51 AM Number of Addenda: [address] [phone] [facility] [employer] 05/15/2021 8:51 AM CDT Janeth Foreman MD GI PROCEDURE REESE GUARDADO [facility] [employer] * ENDOSCOPY, COLON, SCREENING (08/22/2020 3:05 PM CDT) Report Endoscopy POC Endoscopy Department Report _ Patient Name: Eugenia Pinzon Procedure Date: 08/22/2020 3:05 PM Date of : 1960 Classification: Outpatient Gender: Female Ethnicity: Not or Race: White _ Providers: Janeth Titus MD Referring MD: Procedure: Colonoscopy Indications: High risk colon cancer surveillance: Personal history of colonic polyps. History of CHEK2 mutation and polyps on previous colonoscopy 12/2019. Medications: Monitored Anesthesia Care Description of Procedure: [...] Prior Anticoagulants: The patient has taken no previous anticoagulant or antiplatelet agents. ASA Grade Assessment: II - A patient with mild systemic disease. After reviewing the risks and benefits, the patient was deemed in satisfactory condition to undergo the procedure. After I obtained informed consent, the scope was passed under direct vision. Throughout the procedure, the patient's blood pressure, pulse, and oxygen saturations were monitored continuously. The [id number] was introduced through the anus and advanced to the cecum, identified by appendiceal orifice and ileocecal valve. The colonoscopy was performed without difficulty. The patient tolerated the procedure well. The quality of the bowel preparation was fair. Remaining stool was able to be cleared, allowing for adequate visualization. The ileocecal valve, appendiceal orifice, and rectum were photographed. Findings: Hemorrhoids were found on perianal exam. A few small-mouthed diverticula were found in the sigmoid colon and descending colon. Non-bleeding external and internal hemorrhoids were found during retroflexion. The hemorrhoids were moderate. The exam was otherwise without abnormality on direct and retroflexion views. Estimated Blood Loss: Estimated blood loss: none. Complications: No immediate complications. Impression: - Preparation of the colon was fair. - Hemorrhoids found on perianal exam. - Diverticulosis in the sigmoid colon and in the descending colon. - Non-bleeding external and internal hemorrhoids. - The examination was otherwise normal on direct and retroflexion views. - No specimens collected. Recommendation: - Resume previous diet. - Continue present medications. - Repeat colonoscopy in 1-2 years for surveillance. - Return to GI clinic in 3-6 months. Attending Participation: I personally performed the entire procedure. Procedure Code(s): --- Professional --- G0105, Colorectal cancer screening; colonoscopy on individual at high risk Diagnosis Code(s): --- Professional --- Z86.010, Personal history of colonic polyps K64.8, Other hemorrhoids K57.30, Diverticulosis of large intestine without perforation or abscess without bleeding CPT copyright 2019 [employer]. All rights reserved. The codes documented in this report are preliminary and upon medical coder review may be revised to meet current compliance requirements. ____ Janeth Titus MD 08/22/2020 3:32:21 PM Note Initiated On: 08/22/2020 3:05 PM Number of Addenda: 0 [facility] [address] [facility] [place] [address] [facility] 08/22/2020 3:05 PM CDT Janeth Foreman MD [facility]ED[facility] Organization Address City/State/ZIP Co de Phone Number [facility] * ENDOSCOPY, COLON, SCREENING (08/22/2020 2:19 PM CDT) Report Endoscopy POC Endoscopy Department Report __ _ Patient Name: Eugenia Pinzon Procedure Date: 08/22/2020 2:19 PM Date of : 1960 Classification: Outpatient Gender: Female Ethnicity: Not or Race: White __ _ Providers: Janeth Titus MD, Isai Rios (Fellow) Referring MD: Procedure: Upper GI endoscopy Indications: Follow-up of gastric polyps, history of CHEK2 Mutation, dysphagia Medications: Monitored Anesthesia Care Description of Procedure: [...] Prior Anticoagulants: The patient has taken no previous anticoagulant or antiplatelet agents. ASA Grade Assessment: II - A patient with mild systemic disease. After reviewing the risks and benefits, the patient was deemed in satisfactory condition to undergo the procedure. After obtaining informed consent, the endoscope was passed under direct vision. Throughout the procedure, the patient's blood pressure, pulse, and oxygen saturations were monitored continuously. The GIF-H190 was introduced through the mouth, and advanced to the second part of duodenum. The upper GI endoscopy was accomplished without difficulty. The patient tolerated the procedure well. Findings: Esophagogastric landmarks were identified: the Z-line was found at 41 cm, the gastroesophageal junction was found at 41 cm and the site of hiatal narrowing was found at 41 cm from the incisors. The examined esophagus was normal. A TTS dilator was passed through the scope. Dilation with an 18-19-20 mm balloon dilator was performed to 20 mm at the gastroesophageal junction. No heme was noted post dilation. Multiple 2 to 7 mm sessile polyps were found in the gastric fundus and in the gastric body. These polyps were removed with a jumbo cold forceps. Resection and retrieval were complete. Verification of patient identification for the specimen was done by the nurse and metallographic technician using the patient's name, date and medical record number. Estimated blood loss was minimal. The exam of the stomach was otherwise normal. The cardia and gastric fundus were normal on retroflexion. A few small sessile polyps were found in the duodenal bulb. Previously biopsied. Estimated Blood Loss: Estimated blood loss was minimal. Complications: No immediate complications. Estimated blood loss: Minimal. Impression: - Normal esophagus. - Dilation performed at the gastroesophageal junction. - Multiple gastric polyps. Resected and retrieved. - A few diminutive duodenal polyps as described above. Recommendation: - Patient has a contact number available for emergencies. The signs and symptoms of potential delayed complications were discussed with the patient. Return to normal activities tomorrow. Written discharge instructions were provided to the patient. - Resume previous diet. - Continue present medications. - Await pathology results. - Repeat upper endoscopy at appointment to be scheduled for surveillance. - Return to referring physician as previously scheduled. Attending Participation: I was present and participated during the entire procedure, including non-young portions. Procedure Code(s): --- Professional --- 43405, Esophagogastroduode noscopy, flexible, transoral; with transendoscopic balloon dilation of esophagus (less than 30 mm diameter) Diagnosis Code(s): --- Professional --- K31.7, Polyp of stomach and duodenum CPT copyright 2019 [employer]. All rights reserved. The codes documented in this report are preliminary and upon medical coder review may be revised to meet current compliance requirements. ___ Janeth Titus MD 08/22/2020 3:33:45 PM Note Initiated On: 08/22/2020 2:19 PM Number of Addenda: 0 [facility] [address] [place] [address] [facility] [place] 08/22/2020 2:19 PM CDT Janeth Foreman MD GI PROCEDURE REESE GUARDADO [facility] [place] * BASIC METABOLIC PANEL (CALCIUM TOTAL) (08/22/2020 1:49 PM CDT) Only the most recent of10 resultswithin the time period is included. BUN 12 7 - 26 mg/dL 08/22/2020 2:44 PM [facility] Creatinine 0.8 0.6 - 1.2 mg/dL 08/22/2020 2:44 PM [facility] Sodium 140 136 - 145 mmol/L 08/22/2020 2:44 PM [facility] Potassium 3.8 3.5 - 4.5 mmol/L 08/22/2020 2:44 PM [facility] Chloride 103 98 - 107 mmol/L 08/22/2020 2:44 PM [facility] CO2 25 22 - 29 mmol/L 08/22/2020 2:44 PM [facility] Glucose 104 70 - 115 mg/dL 08/22/2020 2:44 PM [facility] Calcium 9.9 8.4 - 10.2 mg/dL 08/22/2020 2:44 PM [facility] Anion Gap 16 8 - 18 08/22/2020 2:44 PM [facility] BUN/Creatinine Ratio 15 7 - 23 08/22/2020 2:44 PM [facility] Osmolality Calculated 290 270 - 300 mOsm/kg 08/22/2020 2:44 PM [facility] eGFR >60 >60 mL/min/1.7 3 m2 08/22/2020 2:44 PM [facility] Blood BLOOD SPECIMEN / Unknown Venipuncture / Unknown 08/22/2020 1:49 PM CDT 08/22/2020 2:08 PM CDT Janeth Foreman MD LAB - CHEMISTRY O RDERASUE [facility] [place] [id number], [place] [phone] * FSH (08/16/2020 11:08 AM CDT) FSH 15.5 IU/L 08/18/2020 5:22 AM CDT [facility] [employer] ([facility]) Comment: INTERPRETIVE INFORMATION: Follicle Stimulating Hormone Females: Follicular: 3.5-12.5 IU/L Mid-Cycle: 4.7-21.5 IU/L Luteal: 1.7-7.7 IU/L Postmenopausal: 25.8-134.8 IU/L REFERENCE INTERVAL: Follicle Stimulating Hormone Access complete set of age- and/or gender-specific reference intervals for this test in the [employer] [facility] Test Directory ([employer]). Performed By: [facility] [address] [place] [address] Access Director: Marissa Bernstein MD Blood BLOOD SPECIMEN / Unknown Lab Venipuncture / Unknown 08/16/2020 11:08 AM CDT 08/16/2020 11:26 AM CDT Arlin Pruitt MD LAB - CHEMISTRY REESE GUARDADO Performing Organization Address City/[facility]/ZIP Co de Phone Number [facility]) [address] [place] [address] * ESTRADIOL (08/16/2020 11:08 AM CDT) Estradiol 18.4 pg/mL 08/17/2020 11:09 AM CDT [facility] ([facility]) Comment: Adult Female: Follicular phase 12.5 - 166.0 Ovulation phase 85.8 - 498.0 Luteal phase 43.8 - 211.0 Postmenopausal <6.0 - 54.7 1st trimester 215.0 - >4300.0 Alexis ECLIA methodology Blood BLOOD SPECIMEN / Unknown Lab Venipuncture / Unknown 08/16/2020 11:08 AM CDT 08/16/2020 11:26 AM CDT Narrative [facility] ([facility]) - 08/17/2020 11:09 AM CDT Performed at: [facility] [address] [place], [place] [id number] Sheriff'S Sergeant: Luis Ramírez PhD, Phone: [phone] Arlin Pruitt MD LAB - CHEMISTRY REESE GUARDADO [facility] ([facility]) [address] [place] [address], [place] * CARDIAC EKG ORDER (07/09/2020 4:10 PM CDT) Narrative 07/09/2020 4:10 PM CDT Ordered by an unspecified provider. Scanned Document CARDIAC SERVICES ORD ERABLES * ETT LINE PERFORMABLE (07/06/2020 8:23 AM CDT) Brian Hull DO - 07/06/2020 8:23 AM CDT Brian Pena DO 07/06/2020 8:23 AM Endotracheal Tube Placement: Patient Location: OR. Intubation Event Date/Time: 07/06/2020 7:52 AM Procedure: intubation ([id number]). Procedure Section: Sedation: IV sedation. Indications for Airway Management: airway protection Induction: standard IV Patient Position: sniffing and supine Mask Ventilation: easy. Blade Type: Antione Blade Size: 3 Laryngoscopy View: grade 1 (full cords) Intubation Adjuncts: stylet Tube: endotracheal tube Placement: oral Tube type: cuff - inflated Tube Size (MM): 7 Depth of Insertion (CM): 21 Measured From: teeth Cuff volume (mL): 10 Cuff Inflated With: air Number of Attempts: 1. Ventilation between attempts: No. Placement Verified By: direct visualization, bilateral breath sounds, chest auscultation and CO2 monitor Tube secured with: adhesive tape. Difficult Airway? No. Procedure Start Time: 07/06/2020 7:52 AM. Staff Section Anesthesia Provider: Brian Pena DO Performed the procedure Fidelina Liu MD GENERAL ANESTHESIA O RDERABLES * ETT LINE PERFORMABLE (07/06/2020 8:18 AM CDT) Brian Hull DO - 07/06/2020 8:18 AM CDT Brian Pena DO 07/06/2020 8:19 AM Endotracheal Tube Placement: Patient Location: OR. Procedure: intubation ([id number]). Procedure Section: Sedation: IV sedation. Indications for Airway Management: airway protection Induction: standard IV Patient Position: sniffing and supine Mask Ventilation: easy. Blade Type: Antione Blade Size: 3 Laryngoscopy View: grade 1 (full cords) Intubation Adjuncts: stylet Tube: endotracheal tube Placement: oral Tube type: cuff - inflated Tube Size (MM): 7 Measured From: teeth Cuff volume (mL): 10 Cuff Inflated With: air Number of Attempts: 1. Ventilation between attempts: No. Placement Verified By: direct visualization, bilateral breath sounds, chest auscultation and CO2 monitor Tube secured with: adhesive tape. Difficult Airway? No. Staff Section Anesthesia Provider: Brian Pena DO, Performed the procedure Fidelina Liu MD GENERAL ANESTHESIA O RDERABLES * NM SENTINEL NODE INJECTION (07/05/2020 3:47 PM CDT) Anatomical Region Laterality Modality Breast, Upper Extremity, Other [facility] Medicine 07/05/2020 3:32 PM CDT Impressions 07/05/2020 4:00 PM CDT IMPRESSION: Successful placement of 4 periareolar injections in the left breast. Dictated by Nohelia Zhang MD (residential electrician). This report was approved by Nohelia Zhang on 07/05/2020 3:47 PM . I, Dr. SELINA NORIEGA M.D. have personally reviewed and interpreted this examination/study. This report was electronically signed by SELINA NORIEGA M.D. on 07/05/2020 4:00 PM . Narrative 07/05/2020 4:00 PM CDT PROCEDURE: Lymphoscintigraphy - [place] lymph node detection. 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 Height 160 cm; weight 225 lb. TECHNIQUE: 2.17 mCi of Tc-99m Tilmanocept (Lymphoseek) injected intradermally in the left breast. FINDINGS: The left breast was cleaned and a total dose of 2.17 mCi Tc 99-m Tilmanocept (Lymphoseek) was given by 4 separate intradermal injections in the periareolar region of the left breast by Dr. Zhang. The patient tolerated the procedure well without complication. Dr. Noriega was there for the young portion of the procedure. Procedure Note Selina Noriega MD - 07/05/2020 PROCEDURE: Lymphoscintigraphy - [place] lymph node detection. 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 Height 160 cm; weight 225 lb. TECHNIQUE: 2.17 mCi of Tc-99m Tilmanocept (Lymphoseek) injected intradermally inthe left breast. FINDINGS: The left breast was cleaned and a total dose of 2.17 mCi Tc 99-m Tilmanocept (Lymphoseek) was given by 4 separate intradermal injectionsin the periareolar region of the left breast by Dr. Zhang. The patienttolerated the procedure well without complication. Dr. Noriega was there for thekey portion of the procedure. IMPRESSION: Successful placement of 4 periareolar injections in the left breast. Dictated by Nohelia Zhang MD (residential electrician). This report was approved by Nohelia Zhang on 07/05/2020 3:47 PM . I, Dr. SELINA NORIEGA M.D. have personally reviewed and interpreted this examination/study. This report was electronically signed by SELINA NORIEGA M.D. on 07/05/2020 4:00 PM . Jennifer Roy MD NM ORDERABLES * SARS-COV-2 (COVID-19) IN HOUSE (07/04/2020 11:46 AM CDT) COVID-19 PCR Not detected Not detected, Invalid 07/05/2020 9:25 AM CDT [facility] Microbiology SPECIMEN FROM NASOPHARYNGEAL STRUCTURE / Unknown Collection / Unknown 07/04/2020 11:46 AM CDT 07/04/2020 11:46 AM CDT Narrative [facility] - 07/05/2020 9:25 AM CDT This Real Time RT-PCR assay was developed and its performance characteristics determined by [facility]. This test has been authorized by the Food and Drug administration (FDA)under an Emergency Use Authorization (EUA). This test has been validated in accordance with the FDA's guidance document Policy for Diagnostic Testing in Laboratories Certified to perform High Complexity Testing under CLIA prior to Emergency Use Authorization for Coronavirus Disease-2019 during the Public Health Emergency issued on January 28, 2020. FDA independent review of this validation is pending. This test is only authorized for the duration of time the declaration that circumstances exist justifying the authorization of emergency use of in vitro diagnostic tests for detection of SARS-CoV-2 virus and/or diagnosis of COVID-19 infection under section 564(b)(1) of the Act, 21 U.S.C 360bbb-3 (b)(1), unless the authorization is terminated or revoked sooner. Jennifer Roy MD LAB - MICROBIOLOGY ORDERABLES [facility] [address] [place], [place] [address], [place] [phone] * EKG 12-LEAD (07/04/2020 10:51 AM CDT) Only the most recent of3 resultswithin the time period is included. Ventricular Rate 92 BPM [facility] Atrial Rate 92 BPM [facility] P-R Interval 128 ms [facility] QRS Duration ms 76 ms [facility] Q-T Interval ms 356 ms [facility] QTC Calculation (Bezet) 440 ms [facility] Calculated P [place] 35 degrees [facility] Calculated R [place] 66 degrees [facility] Calculated T [place] 51 degrees [facility] Interpretation EKG NORMAL SINUS RHYTHM NORMAL ECG WHEN COMPARED WITH ECG OF 21-JUN-2016 20:16, NO SIGNIFICANT CHANGE WAS FOUND Confirmed by fellow Mal Macario ([id number]) on 07/08/2020 5:40:42 PM Confirmed by Ed Bagley ([id number]) on 07/16/2020 9:03:37 PM [facility] 07/04/2020 10:5 1 AM CDT 07/16/2020 9:03 PM CDT Marci Chaves LITIGATION PARTNER-CUSTOMER OPERATIONS REPRESENTATIVE ECG ORDER ERLIN [facility] * US BREAST LEFT BIOPSY (06/12/2020 9:38 AM CDT) Anatomical Region Laterality Modality Breast Left Mammography Biopsy specimen, unspecified 06/12/2020 9:25 AM CDT Addenda Addendum by Maddie Kelly MD on 06/18/2020 8:53 AM CDT ORIGINAL REPORT Ultrasound guided vacuum assisted core biopsy of the left breast. Placement of marker clip Unilateral diagnostic mammography COMPARISON: Diagnostic mammography and ultrasound performed 06/07/2020. HISTORY / INDICATION: The patient is a 59-year-old female who has history of CHEK 2 mutation. She was found to have an irregular mass on annual screening mammography. She has history of benign breast biopsies. TECHNIQUE AND FINDINGS: Preprocedure images were reviewed. Hospital time out procedure was performed. Informed consent was obtained and documented. The procedure and its risks benefits were discussed with the patient, including, but not limited to, bleeding, infection, nondiagnostic specimen, chest wall injury including pneumothorax. Biopsy procedure: The irregular lesion in the upper outer left breast was reidentified. The overlying skin was prepped and draped in usual sterile fashion. 5 cc of 1% lidocaine with epinephrine buffered with bicarbonate was given for local anesthesia at the skin surface. Using sonographic guidance, 10 cc of 1% lidocaine with epinephrine buffered with bicarbonate as well as 10 cc bupivacaine 0.25% was given for deeper anesthesia. A 5 mm incision was made in the skin with an 11 blade scalpel. Using sonographic guidance, a 12-gauge Eviva vacuum assisted biopsy device was inserted beneath the lesion. Several samples were obtained, and the lesion decreased in size throughout the biopsy. A top hat shaped biopsy clip was then placed through the biopsy device and the device was removed from the breast. Firm pressure was held until bleeding stopped. The patient was then transferred to the mammographic suite and a craniocaudal and mediolateral projection of the left breast were obtained. The top hat shaped clip is in an appropriate position. Of note, a ribbon biopsy marker is from a previous benign biopsy. Firm pressure was then held for 10 minutes, and the biopsy site redressed. The patient was discharged from the breast imaging center in stable condition. Blood loss was minimal. The attending physician, Dr. Shanice Kelly, performed the entire procedure. IMPRESSION: Technically successful ultrasound guided vacuum assisted core biopsy of the left breast. Please see pathology report for pathologic analysis. ASSESSMENT: Postprocedure mammograms for marker placement. This report was electronically signed by SHANICE KELLY M.D. on 06/12/2020 9:27 AM . 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 This is concordant with preprocedure imaging. These results were discussed with the patient by her breast surgeon. Results were also provided to her referring physician via [employer]. This report was electronically signed by SHANICE KELLY M.D. on 06/18/2020 8:50 AM . Impressions 06/12/2020 9:27 AM CDT IMPRESSION: Technically successful ultrasound guided vacuum assisted core biopsy of the left breast. Please see pathology report for pathologic analysis. ASSESSMENT: Postprocedure mammograms for marker placement. This report was electronically signed by SHANICE KELLY M.D. on 06/12/2020 9:27 AM . Narrative 06/12/2020 9:27 AM CDT Ultrasound guided vacuum assisted core biopsy of the left breast. Placement of marker clip Unilateral diagnostic mammography COMPARISON: Diagnostic mammography and ultrasound performed 06/07/2020. HISTORY / INDICATION: The patient is a 59-year-old female who has history of CHEK 2 mutation. She was found to have an irregular mass on annual screening mammography. She has history of benign breast biopsies. TECHNIQUE AND FINDINGS: Preprocedure images were reviewed. Hospital time out procedure was performed. Informed consent was obtained and documented. The procedure and its risks benefits were discussed with the patient, including, but not limited to, bleeding, infection, nondiagnostic specimen, chest wall injury including pneumothorax. Biopsy procedure: The irregular lesion in the upper outer left breast was reidentified. The overlying skin was prepped and draped in usual sterile fashion. 5 cc of 1% lidocaine with epinephrine buffered with bicarbonate was given for local anesthesia at the skin surface. Using sonographic guidance, 10 cc of 1% lidocaine with epinephrine buffered with bicarbonate as well as 10 cc bupivacaine 0.25% was given for deeper anesthesia. A 5 mm incision was made in the skin with an 11 blade scalpel. Using sonographic guidance, a 12-gauge Eviva vacuum assisted biopsy device was inserted beneath the lesion. Several samples were obtained, and the lesion decreased in size throughout the biopsy. A top hat shaped biopsy clip was then placed through the biopsy device and the device was removed from the breast. Firm pressure was held until bleeding stopped. The patient was then transferred to the mammographic suite and a craniocaudal and mediolateral projection of the left breast were obtained. The top hat shaped clip is in an appropriate position. Of note, a ribbon biopsy marker is from a previous benign biopsy. Firm pressure was then held for 10 minutes, and the biopsy site redressed. The patient was discharged from the breast imaging center in stable condition. Blood loss was minimal. The attending physician, Dr. Shanice Kelly, performed the entire procedure. Maddie Kelly MD US ORDERABLES * MAMMO LEFT DIAGNOSTIC (06/12/2020 9:34 AM CDT) Anatomical Region Laterality Modality Breast Left Mammography 06/12/2020 9:25 AM CDT Addenda Addendum by Maddie Kelly MD on 06/18/2020 8:53 AM CDT ORIGINAL REPORT Ultrasound guided vacuum assisted core biopsy of the left breast. Placement of marker clip Unilateral diagnostic mammography COMPARISON: Diagnostic mammography and ultrasound performed 06/07/2020. HISTORY / INDICATION: The patient is a 59-year-old female who has history of CHEK 2 mutation. She was found to have an irregular mass on annual screening mammography. She has history of benign breast biopsies. TECHNIQUE AND FINDINGS: Preprocedure images were reviewed. Hospital time out procedure was performed. Informed consent was obtained and documented. The procedure and its risks benefits were discussed with the patient, including, but not limited to, bleeding, infection, nondiagnostic specimen, chest wall injury including pneumothorax. Biopsy procedure: The irregular lesion in the upper outer left breast was reidentified. The overlying skin was prepped and draped in usual sterile fashion. 5 cc of 1% lidocaine with epinephrine buffered with bicarbonate was given for local anesthesia at the skin surface. Using sonographic guidance, 10 cc of 1% lidocaine with epinephrine buffered with bicarbonate as well as 10 cc bupivacaine 0.25% was given for deeper anesthesia. A 5 mm incision was made in the skin with an 11 blade scalpel. Using sonographic guidance, a 12-gauge Eviva vacuum assisted biopsy device was inserted beneath the lesion. Several samples were obtained, and the lesion decreased in size throughout the biopsy. A top hat shaped biopsy clip was then placed through the biopsy device and the device was removed from the breast. Firm pressure was held until bleeding stopped. The patient was then transferred to the mammographic suite and a craniocaudal and mediolateral projection of the left breast were obtained. The top hat shaped clip is in an appropriate position. Of note, a ribbon biopsy marker is from a previous benign biopsy. Firm pressure was then held for 10 minutes, and the biopsy site redressed. The patient was discharged from the breast imaging center in stable condition. Blood loss was minimal. The attending physician, Dr. Shanice Kelly, performed the entire procedure. IMPRESSION: Technically successful ultrasound guided vacuum assisted core biopsy of the left breast. Please see pathology report for pathologic analysis. ASSESSMENT: Postprocedure mammograms for marker placement. This report was electronically signed by SHANICE KELLY M.D. on 06/12/2020 9:27 AM . 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 This is concordant with preprocedure imaging. These results were discussed with the patient by her breast surgeon. Results were also provided to her referring physician via [employer]. This report was electronically signed by SHANICE KELLY M.D. on 06/18/2020 8:50 AM . Impressions 06/12/2020 9:27 AM CDT IMPRESSION: Technically successful ultrasound guided vacuum assisted core biopsy of the left breast. Please see pathology report for pathologic analysis. ASSESSMENT: Postprocedure mammograms for marker placement. This report was electronically signed by SHANICE KELLY M.D. on 06/12/2020 9:27 AM . Narrative 06/12/2020 9:27 AM CDT Ultrasound guided vacuum assisted core biopsy of the left breast. Placement of marker clip Unilateral diagnostic mammography COMPARISON: Diagnostic mammography and ultrasound performed 06/07/2020. HISTORY / INDICATION: The patient is a 59-year-old female who has history of CHEK 2 mutation. She was found to have an irregular mass on annual screening mammography. She has history of benign breast biopsies. TECHNIQUE AND FINDINGS: Preprocedure images were reviewed. Hospital time out procedure was performed. Informed consent was obtained and documented. The procedure and its risks benefits were discussed with the patient, including, but not limited to, bleeding, infection, nondiagnostic specimen, chest wall injury including pneumothorax. Biopsy procedure: The irregular lesion in the upper outer left breast was reidentified. The overlying skin was prepped and draped in usual sterile fashion. 5 cc of 1% lidocaine with epinephrine buffered with bicarbonate was given for local anesthesia at the skin surface. Using sonographic guidance, 10 cc of 1% lidocaine with epinephrine buffered with bicarbonate as well as 10 cc bupivacaine 0.25% was given for deeper anesthesia. A 5 mm incision was made in the skin with an 11 blade scalpel. Using sonographic guidance, a 12-gauge Eviva vacuum assisted biopsy device was inserted beneath the lesion. Several samples were obtained, and the lesion decreased in size throughout the biopsy. A top hat shaped biopsy clip was then placed through the biopsy device and the device was removed from the breast. Firm pressure was held until bleeding stopped. The patient was then transferred to the mammographic suite and a craniocaudal and mediolateral projection of the left breast were obtained. The top hat shaped clip is in an appropriate position. Of note, a ribbon biopsy marker is from a previous benign biopsy. Firm pressure was then held for 10 minutes, and the biopsy site redressed. The patient was discharged from the breast imaging center in stable condition. Blood loss was minimal. The attending physician, Dr. Shanice Kelly, performed the entire procedure. Procedure Note Maddie Kelly MD - 06/12/2020 Ultrasound guided vacuum assisted core biopsy of the left breast. Placement of marker clip Unilateral diagnostic mammography COMPARISON: Diagnostic mammography and ultrasound performed 06/07/2020. HISTORY / INDICATION: The patient is a 59-year-old female who hashistory of CHEK 2 mutation. She was found to have an irregular mass on annual screening mammography. She has history of benign breast biopsies. TECHNIQUE AND FINDINGS: Preprocedure images were reviewed. Hospitaltime out procedure was performed. Informed consent was obtained anddocumented. The procedure and its risks benefits were discussed with the patient, including, but not limited to, bleeding, infection, nondiagnostic specimen, chest wall injury including pneumothorax. Biopsy procedure: The irregular lesion in the upper outer left breastwas reidentified. The overlying skin was prepped and draped in usualsterile fashion. 5 cc of 1% lidocaine with epinephrine buffered with bicarbonate was given for local anesthesia at the skin surface. Using sonographic guidance, 10 cc of 1% lidocaine with epinephrine buffered withbicarbonate as well as 10 cc bupivacaine 0.25% was given for deeper anesthesia. A 5mm incision was made in the skin with an 11 blade scalpel. Usingsonographic guidance, a 12-gauge Eviva vacuum assisted biopsy device was inserted beneath the lesion. Several samples were obtained, and the lesion decreased in size throughout the biopsy. A top hat shaped biopsy clipwas then placed through the biopsy device and the device was removed fromthe breast. Firm pressure was held until bleeding stopped. The patient was then transferred to the mammographic suite and a craniocaudal and mediolateral projection of the left breast wereobtained. The top hat shaped clip is in an appropriate position. Of note, a ribbon biopsy marker is from a previous benign biopsy. Firm pressure was then held for 10 minutes, and the biopsy site redressed. The patient was discharged from the breast imaging center in stable condition. Bloodloss was minimal. The attending physician, Dr. Shanice Kelly, performed the entire procedure. IMPRESSION: Technically successful ultrasound guided vacuum assisted core biopsy of the left breast. Please see pathology report for pathologic analysis. ASSESSMENT: Postprocedure mammograms for marker placement. This report was electronically signed by SHANICE KELLY M.D. on 06/12/2020 9:27 AM . Maddie Kelly MD MAMMO ORDERABLES * (ABNORMAL) US BREAST LEFT LTD (06/07/2020 10:34 AM CDT) Anatomical Region Laterality Modality Breast Left Mammography 06/07/2020 9:20 AM CDT Impressions 06/07/2020 10:42 AM CDT IMPRESSION: Irregular mass with distortion in the upper outer left breast is highly suspicious for malignancy ASSESSMENT: BI-RADS Category 5: Highly suggestive of malignancy - appropriate action should be taken. RECOMMENDATION: Ultrasound-guided biopsy left breast Patient was informed of these findings and recommendations by Dr. Muniz This report was electronically signed by DAYAMI MUNIZ M.D. on 06/07/2020 10:42 AM . Narrative 06/07/2020 10:42 AM CDT BILATERAL DIAGNOSTIC MAMMOGRAM and Limited left breast ultrasound DATE: 06/07/2020. COMPARISON: Multiple prior mammograms, most recently 2019 [place] imaging HISTORY: 59-year-old female with CHEK 2 [...] increased slightly in size when compared to [facility] ultrasound 08/01/2016. There is no axillary adenopathy. Jennifer Roy MD US ORDERABLES * (ABNORMAL) MAMMO BILAT DIAGNOSTIC (06/07/2020 9:10 [...] of these findings and recommendations by Dr. Muniz This report was electronically signed by DAYAMI MUNIZ M.D. on 06/07/2020 10:42 AM . Narrative 06/07/2020 10:42 AM CDT BILATERAL DIAGNOSTIC MAMMOGRAM and Limited left breast ultrasound DATE: 06/07/2020. COMPARISON: Multiple prior mammograms, most recently 2019 [place] imaging HISTORY: 59-year-old female with CHEK 2 [...] increased slightly in size when compared to [facility] ultrasound 08/01/2016. There is no axillary adenopathy. Jennifer Roy MD MAMMO ORDERABLES * US PELVIS LIMITED (02/09/2020 10:24 AM CDT) Anatomical Region Laterality Modality Pelvis Ultrasound 02/09/2020 10:4 5 AM CDT Impressions 02/09/2020 11:36 AM CDT IMPRESSION: Unremarkable partially distended bladder. No sonographic bladder mass identified however ultrasound has limited screening value for bladder carcinoma. Dictated by Ted Pinzon MD (residential electrician). This report was approved by Ted Pinzon M.D. on 02/09/2020 11:04 AM . I, Dr. JENIFFER MCDONALD M.D. have personally reviewed and interpreted this examination/study. This report was electronically signed by JENIFFER MCDONALD M.D. on 02/09/2020 11:36 AM . Narrative 02/09/2020 11:36 AM CDT EXAMINATION: Limited sonogram of the bladder. 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 COMPARISON: No prior study is available for comparison. FINDINGS: The bladder measures 4.3 x 3.6 x 4.8 cm. The bladder is partially distended. No sonographic bladder mass is identified. Procedure Note Jeniffer Mcdonald MD - 02/09/2020 EXAMINATION: Limited sonogram of the bladder. 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 COMPARISON: No prior study is available for comparison. FINDINGS: The bladder measures 4.3 x 3.6 x 4.8 cm. The bladder is partially distended. No sonographic bladder mass is identified. IMPRESSION: Unremarkable partially distended bladder. No sonographic bladder mass identified however ultrasound has limited screening value for bladder carcinoma. Dictated by Ted Pinzon MD (residential electrician). This report was approved by Ted Pinzon M.D. on 02/09/2020 11:04 AM. I, Dr. JENIFFER MCDONALD M.D. have personally reviewed and interpretedthis examination/study. This report was electronically signed by JENIFFER MCDONALD M.D. on 02/09/2020 11:36 AM . Janeth Foreman MD US ORDERABLES * GROSS + MICRO EXAM (STL) (01/25/2020 11:07 AM VETERINARY SURGERY TECHNICIAN) Only the most recent of6 resultswithin the time period is included. Case Report Surgical Pathology Report Case: [id number] Authorizing Provider: Janeth Titus MD Collected: 01/25/2020 11:07 AM Ordering Location: [facility] Received: 01/26/2020 08:28 AM Pathologist: Yrn Mcdermott MD Specimens: A) - Polyp Small Bowel, Duodenal polyp bx B) - Polyp Gastric, 7 gastric polyps C) - Ileocecal Valve Biopsy D) - Polyp Transverse, 1 polyp E) - Polyp Descending, 1 polyp F) - Polyp Rectal, 1 polyp 01/27/2020 2:45 PM VETERINARY SURGERY TECHNICIAN [facility] Final Diagnosis Small intestine, duodenum, p olyp , endoscopic biopsy: --Duodenal mucosa with mild chronic inflammation Stomach, 7 polyps , endoscopic biopsy: --Fundic gland polyps (15/20 fragments) --Chronic gastritis, mild Large intestine, ileocecal valve, endoscopic biopsy: --Negative for significant histopathologic abnormalities Large intestine, transverse, 1 polyp , colonoscopic biopsy: --Benign polypoid mucosa Large intestine, descending, 1 polyp , colonoscopic biopsy: --Hyperplastic polyp Rectum, 1 polyp , colonoscopic biopsy: --Hyperplastic polyp (multiple fragments) 01/27/2020 2:45 PM VETERINARY SURGERY TECHNICIAN [facility] Gross Description The tissue is received in six containers of formalin all labeled Eugenia Pinzon A. The first container is additionally labeled duodenal polyp biopsy and contains one piece of malik-red tissue measuring 0.3 x 0.3 x 0.2 cm. The specimen is submitted entirely in A1. B. The second container is additionally labeled gastric polyp seven polyps and contains many pieces of malik-brown tissue measuring 1.4 x 0.3 x 0.2 cm in aggregate. The specimen is submitted entirely in B1. C. The third container is additionally labeled ileocecal valve biopsy and appears to contain four pieces of malik-brown tissue measuring 0.8 x 0.2 x 0.2 cm in aggregate. The specimen is submitted entirely in C1. D. The fourth container is additionally labeled transverse polyp and appears to contain three pieces of malik-white tissue measuring 0.6 x 0.2 x 0.2 cm in aggregate. The specimen is submitted entirely in D1. E. The fifth container is additionally labeled descending polyp one polyp and contains one piece of malik-brown tissue measuring 0.3 x 0.3 x 0.2 cm. The specimen is submitted entirely in E1. F. The sixth container is additionally labeled rectal polyp one polyp and contains approximately five pieces of malik-brown tissue measuring 1 x 0.2 x 0.2 cm in aggregate. The specimen is submitted entirely in F1. NIKKO/flaca 01/27/2020 2:45 PM VETERINARY SURGERY TECHNICIAN [facility] Microscopic Description The duodenal mucosa in part A has mild polymorphous chronic inflammation. There is at least partial retention of the normal villous architectural pattern and villous to crypt ratio. The biopsy is free of significant acute inflammation and negative for parasites, dysplasia, granulomas and definite evidence of a polyp. The polypoid tissue from the stomach in part B is free of significant acute inflammation and negative for intestinal metaplasia, dysplasia and malignancy. The colonic mucosa and parts C and D is negative for malignancy and definite evidence of an epidermal or mesodermal polyp. 01/27/2020 2:45 PM [facility] Disclaimer All histochemical and/or immunohistochemical results are interpreted with controls that demonstrate appropriate staining reactions before reporting results. Note on use of immunocytochemistry reagents: This test was developed and its performance characteristic determined by [facility], Department of Laboratory Medicine. It has not been cleared or approved by the U.S. Food and Drug Administration (FDA). The FDA has determined that such clearance or approval is not necessary. The test is used for clinical purpose. It should not be regarded as investigational or for research. This laboratory is certified to perform high complexity testing. The performance characteristics of the IHC/EDWARD assays have been validated on formalin-fixed paraffin embedded tissues only. The assays have not been validated on decalcified tissues. Results should be interpreted with caution. 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, Z15.01] Gastric adenoma [D13.1] Adenomatous polyp of colon, unspecified part of colon [D12.6] Miscellaneous samples (specimen) GASTRIC POLYP / Unknown 01/25/2020 11:11 AM VETERINARY SURGERY TECHNICIAN 01/26/2020 8:28 AM VETERINARY SURGERY TECHNICIAN Comment:Pre-op diagnosis: 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, Z15.01] Gastric adenoma [D13.1] Adenomatous polyp of colon, unspecified part of colon [D12.6] Miscellaneous samples (specimen) ILEOCECAL VALVE STRUCTURE / Unknown 01/25/2020 11:46 AM VETERINARY SURGERY TECHNICIAN 01/26/2020 8:28 AM VETERINARY SURGERY TECHNICIAN Comment:Pre-op diagnosis: 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, Z15.01] Gastric adenoma [D13.1] Adenomatous polyp of colon, unspecified part of colon [D12.6] Miscellaneous samples (specimen) POLYP / Unknown 01/25/2020 11:57 AM VETERINARY SURGERY TECHNICIAN 01/26/2020 8:28 AM VETERINARY SURGERY TECHNICIAN Comment:Pre-op diagnosis: 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, Z15.01] Gastric adenoma [D13.1] Adenomatous polyp of colon, unspecified part of colon [D12.6] Miscellaneous samples (specimen) POLYP / Unknown 01/25/2020 12:02 PM VETERINARY SURGERY TECHNICIAN 01/26/2020 8:28 AM VETERINARY SURGERY TECHNICIAN Comment:Pre-op diagnosis: 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, Z15.01] Gastric adenoma [D13.1] Adenomatous polyp of colon, unspecified part of colon [D12.6] Miscellaneous samples (specimen) RECTAL POLYP / Unknown 01/25/2020 12:07 PM VETERINARY SURGERY TECHNICIAN 01/26/2020 8:28 AM VETERINARY SURGERY TECHNICIAN Comment:Pre-op diagnosis: 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, Z15.01] Gastric adenoma [D13.1] Adenomatous polyp of colon, unspecified part of colon [D12.6] Janeth Foreman MD LAB - PATHOLOGY/C YTOLOGY ORDERABLES [facility] [address] [id number] * EGD (01/25/2020 10:29 AM VETERINARY SURGERY TECHNICIAN) Report Endoscopy POC __ _ Patient Name: Eugenia Pinzon Procedure Date: 01/25/2020 10:29 AM Date of : 1960 Admit Type: Outpatient Age: 59 Gender: Female Ethnicity: Not or Race: White Attending MD: Janeth Titus MD __ _ Procedure: Upper GI endoscopy Indications: Follow-up of gastric polyps (prior h/o adenomas) Providers: Janeth Titus MD (Doctor), Cathy Alicea RN, Aster Garcia RN, Meseret Stapleton MD (Fellow) Patient Profile: 59 year old female with 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 Referring MD: Rod Buckner (Referring MD) Medicines: Monitored Anesthesia Care Complications: No immediate complications. __ _ Procedure: Pre-Anesthesia Assessment: - Prior to the procedure, a History and Physical was performed, and patient medications and allergies were reviewed. The patient's tolerance of previous anesthesia was also reviewed. The risks and benefits of the procedure and the sedation options and risks were discussed with the patient. All questions were answered, and informed consent was obtained. Prior Anticoagulants: The patient has taken aspirin, last dose was 2 days prior to procedure. ASA Grade Assessment: III - A patient [...] difficulty. The patient tolerated the procedure well. Impression: - Esophagogastric landmarks identified. - Multiple gastric polyps. Resected and retrieved. - Two duodenal polyps. Biopsied. Findings: Esophagogastric landmarks were identified: the Z-line was found at 36 cm, the gastroesophageal junction was found at 36 cm and the site of hiatal narrowing was found at 38 cm from the incisors. Multiple 2 to 10 mm sessile polyps with no bleeding and no stigmata of recent bleeding were found in the gastric body. Seven of these polyps were removed with a cold snare. Resection and retrieval were complete. The cardia and gastric fundus were normal on retroflexion. Two 5 mm sessile polyps with no bleeding were found in the duodenal bulb. Biopsies were taken with a cold forceps for histology. __ _ Recommendation: - Patient has a contact number available for emergencies. The signs and symptoms of potential delayed complications were discussed with the patient. Return to normal activities tomorrow. Written discharge instructions were provided to the patient. - Continue present medications. - Await pathology results. - Repeat upper endoscopy in 3 years for surveillance. - Return to GI clinic as previously scheduled. Procedure Code(s): --- Professional --- 90711, Esophagogastroduode noscopy, flexible, transoral; with removal of tumor(s), polyp(s), or other lesion(s) by snare technique --- Technical --- 04226, Esophagogastroduode noscopy, flexible, transoral; with removal of tumor(s), polyp(s), or other lesion(s) by snare technique Diagnosis Code(s): --- Professional --- K31.7, Polyp of stomach and duodenum --- Technical --- K31.7, Polyp of stomach and duodenum CPT copyright 2017 [employer]. All rights reserved. The codes documented in this report are preliminary and upon medical coder review may be revised to meet current compliance requirements. _ Janeth Titus MD 01/25/2020 12:28:25 PM This report has been signed electronically. Number of Addenda: 0 Note Initiated On: 01/25/2020 10:29 AM [facility] 01/25/2020 10:2 9 AM VETERINARY SURGERY TECHNICIAN Janeth Foreman MD GI PROCEDURE [facility] * ENDOSCOPY, COLON, SCREENING (01/25/2020 10:27 AM VETERINARY SURGERY TECHNICIAN) Report Endoscopy POC _ Patient Name: Eugenia Pinzon Procedure Date: 01/25/2020 10:27 AM Date of : 1960 Admit Type: Outpatient Age: 59 Gender: Female Ethnicity: Not or Race: White Attending MD: Janeth Titus MD _ Procedure: Colonoscopy Indications: Surveillance: Personal history of adenomatous polyps on last colonoscopy, history of CHEK2 mutation Providers: Janeth Titus MD (Doctor), Cathy Alicea RN, Aster Garcia RN Referring MD: Rod Buckner (Referring MD) Medicines: Monitored Anesthesia Care Complications: No immediate complications. _ Procedure: Pre-Anesthesia Assessment: - Prior to the procedure, a History and Physical was performed, and patient medications and allergies were reviewed. The patient's tolerance of previous anesthesia was also reviewed. The risks and benefits of the procedure and the sedation options and risks were discussed with the patient. All questions were answered, and informed consent was obtained. Prior Anticoagulants: The patient has taken aspirin, last dose was 2 days prior to procedure. ASA Grade Assessment: III - A patient [...] bowel preparation was evaluated using the BBPS ([place] Bowel Preparation Scale) with scores of: Right Colon = 2 (minor amount of residual staining, small fragments of stool and/or opaque liquid, but mucosa seen well), Transverse Colon = 3 (entire mucosa seen well with no residual staining, small fragments of stool or opaque liquid) and Left Colon = 3 (entire mucosa seen well with no residual staining, small fragments of stool or opaque liquid). The total BBPS score equals 8. The quality of the bowel preparation was good. The ileocecal valve, appendiceal orifice, and rectum were photographed. Impression: - Hemorrhoids found on perianal exam. - One 4 mm polyp at the ileocecal valve, removed with a jumbo cold forceps. Resected and retrieved. - One 5 mm polyp in the descending colon, removed with a jumbo cold forceps. Resected and retrieved. - One 5 mm polyp in the rectum, removed with a jumbo cold forceps. Resected and retrieved. - External and internal hemorrhoids. Findings: Hemorrhoids were found on perianal exam. A 4 mm polyp was found in the ileocecal valve. The polyp was sessile. The polyp was removed with a jumbo cold forceps. Resection and retrieval were complete. A 5 mm polyp was found in the descending colon. The polyp was sessile. The polyp was removed with a jumbo cold forceps. Resection and retrieval were complete. A 5 mm polyp was found in the rectum. The polyp was Caty classification mixed IIa + IIc (superficial elevation with central depression). The polyp was removed with a jumbo cold forceps. Resection and retrieval were complete. External and internal hemorrhoids were found during retroflexion. _ Recommendation: - Patient has a contact number available for emergencies. The signs and symptoms of potential delayed complications were discussed with the patient. Return to normal activities tomorrow. Written discharge instructions were provided to the patient. - Resume previous diet. - Continue present medications. - Await pathology results. - Repeat colonoscopy in 1-2 years for surveillance. - Return to GI clinic as previously scheduled. Procedure Code(s): --- Professional --- 83649, Colonoscopy, flexible; with biopsy, single or multiple --- Technical --- 29071, Colonoscopy, flexible; with biopsy, single or multiple Diagnosis Code(s): --- Professional --- Z86.010, Personal history of colonic polyps K64.8, Other hemorrhoids D12.0, Benign neoplasm of cecum D12.4, Benign neoplasm of descending colon K62.1, Rectal polyp --- Technical --- Z86.010, Personal history of colonic polyps K64.8, Other hemorrhoids D12.0, Benign neoplasm of cecum D12.4, Benign neoplasm of descending colon K62.1, Rectal polyp CPT copyright 2017 [employer]. All rights reserved. The codes documented in this report are preliminary and upon medical coder review may be revised to meet current compliance requirements. __ Janeth Titus MD 01/25/2020 12:31:27 PM This report has been signed electronically. Number of Addenda: 0 Note Initiated On: 01/25/2020 10:27 AM [facility] 01/25/2020 10:2 7 AM VETERINARY SURGERY TECHNICIAN Janeth Foreman MD GI PROCEDURE ORDE DEBBY [facility] Organization Address City/State/ZIP Co de Phone Number [facility] * EGD (10/05/2019 11:46 AM VETERINARY SURGERY TECHNICIAN) Report Endoscopy POC __ _ Patient Name: Eugenia Pinzon Procedure Date: 10/05/2019 11:46 AM Date of : 1960 Admit Type: Outpatient Age: 59 Gender: Female Ethnicity: Not or Race: White Attending MD: Janeth Titus MD __ _ Procedure: Upper GI endoscopy Indications: Follow up adenomatous polyps in the stomach and dysphagia (s/p pneumatic dilation to 30 mm for achalasia) Providers: Janeth Titus MD (Doctor), Giuliana Fierro, RN, Shawnee Haines, Harness Brusher Referring MD: Rod Buckner (Referring MD) Medicines: Monitored Anesthesia Care Complications: No immediate complications. __ _ Procedure: Pre-Anesthesia Assessment: - Prior to the procedure, a History and Physical was performed, and patient medications, allergies and sensitivities were reviewed. The patient's tolerance of previous anesthesia was reviewed. - The risks and benefits of the procedure and the sedation options and risks were discussed with the patient. All questions were answered and informed consent was obtained. After obtaining informed consent, the endoscope was passed under direct vision. Throughout the procedure, the patient's blood pressure, pulse, and oxygen saturations were monitored continuously. The Endoscope was introduced through the mouth, and advanced to the third part of duodenum. The upper GI endoscopy was accomplished without difficulty. The patient tolerated the procedure well. Impression: - Esophagogastric landmarks identified. - Normal esophagus. Dilated to 20 mm. - Multiple gastric polyps. Resected and retrieved. - Normal examined duodenum. Findings: Esophagogastric landmarks were identified: the Z-line was found at 38 cm, the gastroesophageal junction was found at 38 cm and the site of hiatal narrowing was found at 38 cm from the incisors. The examined esophagus was normal. A TTS dilator was passed through the scope. Dilation with an 18-19-20 mm x 5.5 cm CRE balloon dilator was performed to 20 mm at the GE junction. There was no resistance with dilation to 20 mm. The inflated 20 mm balloon was passed into the stomach without resistance. Multiple 5 to 8 mm semi-sessile polyps with no bleeding and no stigmata of recent bleeding were found throughout the gastric body. The largest polyps were selected and removed with a cold snare. A total of 26 polyps were resected. Resection and retrieval were complete, although not all removed polyps may have been retrieved. Smaller polyps were not removed. The examined duodenum was normal. There were no additional abnormalities observed in the fundus on retroflexion. __ _ Recommendation: - Discharge patient to home. - Resume previous diet today. - Continue present medications. - Await pathology results. - Repeat upper endoscopy in 6 to 12 months for surveillance based on pathology results. - Return to GI office as previously scheduled. Procedure Code(s): --- Professional --- 24556, Esophagogastroduode noscopy, flexible, transoral; with removal of tumor(s), polyp(s), or other lesion(s) by snare technique [id number], Esophagogastroduode noscopy, flexible, transoral; with transendoscopic balloon dilation of esophagus (less than 30 mm diameter) --- Technical --- 66515, Esophagogastroduode noscopy, flexible, transoral; with removal of tumor(s), polyp(s), or other lesion(s) by snare technique [id number], Esophagogastroduode noscopy, flexible, transoral; with transendoscopic balloon dilation of esophagus (less than 30 mm diameter) Diagnosis Code(s): --- Professional --- K31.7, Polyp of stomach and duodenum --- Technical --- K31.7, Polyp of stomach and duodenum CPT copyright 2017 [employer]. All rights reserved. The codes documented in this report are preliminary and upon medical coder review may be revised to meet current compliance requirements. _ Janeth Titus MD 10/05/2019 12:43:54 PM This report has been signed electronically. Number of Addenda: 0 Note Initiated On: 10/05/2019 11:46 AM [facility] 10/05/2019 11:4 6 AM VETERINARY SURGERY TECHNICIAN Janeth Foreman MD GI PROCEDURE [facility] Organization Address City/State/ZIP Co de Phone Number [facility]COPY * EGD (08/10/2019 11:34 AM CDT) Report Endoscopy POC __ _ Patient Name: Eugenia Pinzon Procedure Date: 08/10/2019 11:34 AM Date of : 1960 Admit Type: Outpatient Age: 58 Gender: Female Ethnicity: Not or Race: White Attending MD: Janeth Titus MD __ _ Procedure: Upper GI endoscopy Indications: For therapy of adenomatous gastric polyp noted on prior EGD. Providers: Janeth Titus MD (Doctor), Garry Benitez MD (Fellow), Stephanie Blanchard, Harness Brusher Referring MD: Rod Buckner (Referring MD) Medicines: Monitored Anesthesia Care Complications: No immediate complications. __ _ Procedure: Pre-Anesthesia Assessment: - Prior to the [...] Prior Anticoagulants: The patient has taken no previous anticoagulant or antiplatelet agents. ASA Grade Assessment: [...] through the mouth, and advanced to the second part of duodenum. The upper GI endoscopy was accomplished without difficulty. The patient tolerated the procedure well. Impression: - Normal esophagus. - Multiple gastric polyps (majority appeared like fundic gland plyps), three of which were resected with hot snare and retrieved. The rest of the polyps were biopsied. - Otherwise normal stomach. - Normal examined duodenum. Findings: The examined esophagus was normal. Esophagogastric landmarks were identified: the Z-line was found at 38 cm and the gastroesophageal junction was found at 38 cm from the incisors. Multiple less than 5 mm sessile polyps were found in the cardia, in the gastric fundus and in the gastric body along the greater curvature. The vast majority appeared like fundic gland polyps. The three largest polyps (including one polyp in the cardia suspected to be the adenomatous polyp noted on biopsies from last EGD) were removed with a hot snare (and placed in a jar labeled gastric polyps ). Resection and retrieval were complete for two polyps including the one in the cardia. Biopsies were taken with a cold forceps for histology from the rest of polyps (and placed in a jar labeled fundic gland polyps ). No bleeding was noted at the end of the procedure. The in the duodenum was normal. __ _ Recommendation: - Patient has a contact number available for emergencies. The signs and symptoms of potential delayed complications were discussed with the patient. Return to normal activities tomorrow. Written discharge instructions were provided to the patient. - Resume previous diet. - Continue present medications. - Await pathology results. - Repeat upper endoscopy in 1 year for surveillance. - Return to GI clinic as previously scheduled. Procedure Code(s): --- Professional --- 59173, Esophagogastroduode noscopy, flexible, transoral; with removal of tumor(s), polyp(s), or other lesion(s) by snare technique [id number], 59, Esophagogastroduode noscopy, flexible, transoral; with biopsy, single or multiple --- Technical --- 58162, Esophagogastroduode noscopy, flexible, transoral; with removal of tumor(s), polyp(s), or other lesion(s) by snare technique 05168, 59, Esophagogastroduode noscopy, flexible, transoral; with biopsy, single or multiple Diagnosis Code(s): --- Professional --- K31.7, Polyp of stomach and duodenum --- Technical --- K31.7, Polyp of stomach and duodenum CPT copyright 2017 [employer]. All rights reserved. The codes documented in this report are preliminary and upon medical coder review may be revised to meet current compliance requirements. Attending Participation: I was present and participated during the entire procedure, including non-young portions. _ Janeth Titus MD 08/10/2019 1:06:08 PM This report has been signed electronically. Number of Addenda: 0 Note Initiated On: 08/10/2019 11:34 AM [facility] 08/10/2019 11:3 4 AM CDT Janeth Foreman MD GI PROCEDURE [facility] * EGD (07/13/2019 10:04 AM CDT) Report Endoscopy POC __ _ Patient Name: Eugenia Pinzon Procedure Date: 07/13/2019 10:04 AM Date of : 1960 Admit Type: Outpatient Age: 58 Gender: Female Ethnicity: Not or Race: White Attending MD: Janeth Titus MD __ _ Procedure: Upper GI endoscopy Indications: Dysphagia, Gastro-esophageal reflux disease. History of achalasia s/p pneumatic dilation November, Providers: Janeth Titus MD (Doctor), Garry Dennison MD (Fellow), Cathy Alicea RN, Deonte Galicia, Harness Brusher Referring MD: Rod Buckner (Referring MD) Medicines: Monitored Anesthesia Care Complications: No immediate complications. __ _ Procedure: Pre-Anesthesia Assessment: - Prior to the procedure, a History and Physical was performed, and patient medications and allergies were reviewed. The patient's tolerance of previous anesthesia was also reviewed. The risks and benefits of the procedure and the sedation options and risks were discussed with the patient. All questions were answered, and informed consent was obtained. Prior Anticoagulants: The patient has taken aspirin, last dose was 1 day prior to procedure. ASA Grade Assessment: III - A patient [...] through the mouth, and advanced to the second part of duodenum. The upper GI endoscopy was accomplished without difficulty. The patient tolerated the procedure well. Impression: - Tortuous esophagus. - Esophagogastric landmarks identified. Patent GE junction. - Multiple gastric polyps. Biopsied. - A single gastric polyp. Biopsied. - Normal examined duodenum. Findings: The examined esophagus was mildly tortuous. Esophagogastric landmarks were identified: the Z-line was found at 37 cm, the gastroesophageal junction was found at 37 cm and the site of hiatal narrowing was found at 38 cm from the incisors. A small amount of bilious fluid was observed to reflux into the esophagus, and was suctioned with the scope. The GE junction junction was patent and the scope passed through it with no resistance. Multiple 4 mm sessile polyps with no bleeding and no stigmata of recent bleeding were found in the gastric fundus. Biopsies were taken with a cold forceps for histology. Verification of patient identification for the specimen was done by the nurse using the patient's name and date. A single 10 mm sessile polyp with no bleeding and no stigmata of recent bleeding was found on the lesser curvature of the stomach. Biopsies were taken with a cold forceps for histology. Verification of patient identification for the specimen was done by the nurse using the patient's name and date. The examined duodenum was normal. No additional abnormalities were observed on retroflexion in the stomach. __ _ Recommendation: - Await pathology results. - Perform a colonoscopy today. - Gastric emptying scan as scheduled. Procedure Code(s): --- Professional --- 51406, Esophagogastroduode noscopy, flexible, transoral; with biopsy, single or multiple --- Technical --- 56800, Esophagogastroduode noscopy, flexible, transoral; with biopsy, single or multiple Diagnosis Code(s): --- Professional --- Q39.9, Congenital malformation of esophagus, unspecified K31.7, Polyp of stomach and duodenum R13.10, Dysphagia, unspecified K21.9, Gastro-esophageal reflux disease without esophagitis --- Technical --- Q39.9, Congenital malformation of esophagus, unspecified K31.7, Polyp of stomach and duodenum R13.10, Dysphagia, unspecified K21.9, Gastro-esophageal reflux disease without esophagitis CPT copyright 2017 [employer]. All rights reserved. The codes documented in this report are preliminary and upon medical coder review may be revised to meet current compliance requirements. Attending Participation: I was present and participated during the entire procedure from insertion to removal of the endoscope. _ Janeth Titus MD 07/13/2019 10:37:27 AM This report has been signed electronically. Number of Addenda: 0 Note Initiated On: 07/13/2019 10:04 AM [facility] 07/13/2019 10:0 4 AM CDT Janeth Foreman MD GI PROCEDURE [facility] END[facility]COPY * ENDOSCOPY, COLON, SCREENING (07/13/2019 10:03 AM CDT) Report Endoscopy POC _ Patient Name: Eugenia Pinzon Procedure Date: 07/13/2019 10:03 AM Date of : 1960 Admit Type: Outpatient Age: 58 Gender: Female Ethnicity: Not or Race: White Attending MD: Janeth Titus MD _ Procedure: Colonoscopy Indications: High risk colon cancer surveillance: Personal history of multiple (3 or more) adenomas Providers: Janeth Titus MD (Doctor), Garry Dennison MD (Fellow), Cathy Alicea RN, Deonte Galicia, Harness Brusher Referring MD: Rod Buckner (Referring MD) Medicines: Monitored Anesthesia Care Complications: No immediate complications. _ Procedure: Pre-Anesthesia Assessment: - Prior to the procedure, a History and Physical was performed, and patient medications and allergies were reviewed. The patient's tolerance of previous anesthesia was also reviewed. The risks and benefits of the procedure and the sedation options and risks were discussed with the patient. All questions were answered, and informed consent was obtained. Prior Anticoagulants: The patient has taken aspirin, last dose was day of procedure. ASA Grade Assessment: III - A patient [...] bowel preparation was evaluated using the BBPS ([place] Bowel Preparation Scale) with scores of: Right Colon = 0 (unprepared, mucosa not seen due to solid stool that cannot be cleared or unseen proximal colon segment in a colonoscopy aborted due to inadequate bowel prep), Transverse Colon = 0 (unprepared, mucosa not seen due to solid stool that cannot be cleared or unseen proximal colon segment in a colonoscopy aborted due to inadequate bowel prep) and Left Colon = 1 (portion of mucosa seen, but other areas not well seen due to staining, residual stool and/or opaque liquid). The total BBPS score equals 1. The quality of the bowel preparation was inadequate for thorough screening. Some, but not all of retained stool was able to be washed and suctioned. Impression: - Preparation of the colon was inadequate for thorough screening purposes. Small polyps may have been missed. - One 4 mm polyp at the ileocecal valve, removed with a jumbo cold forceps. Resected and retrieved. - One 4 mm polyp in the transverse colon, removed with a jumbo cold forceps. Resected and retrieved. - Non-bleeding internal hemorrhoids. Findings: The perianal and digital rectal examinations were normal. A 4 mm polyp was found in the ileocecal valve. The polyp was sessile. The polyp was removed with a jumbo cold forceps. Resection and retrieval were complete. Verification of patient identification for the specimen was done by the nurse using the patient's name and date. A 4 mm polyp was found in the transverse colon. The polyp was sessile. The polyp was removed with a jumbo cold forceps. Resection and retrieval were complete. Verification of patient identification for the specimen was done by the nurse using the patient's name and date. Non-bleeding internal hemorrhoids were found during retroflexion. _ Recommendation: - Patient has a contact number available for emergencies. The signs and symptoms of potential delayed complications were discussed with the patient. Return to normal activities tomorrow. Written discharge instructions were provided to the patient. - Resume previous diet. - Continue present medications. - Await pathology results. - Repeat colonoscopy in 1 year for surveillance due to poor preparation. - Return to GI clinic as previously scheduled. - Patient will need to be on 1 week of miralax, low residue diet, and use Golytely for prep before next colonoscopy. Procedure Code(s): --- Professional --- 26733, Colonoscopy, flexible; with biopsy, single or multiple --- Technical --- 71841, Colonoscopy, flexible; with biopsy, single or multiple Diagnosis Code(s): --- Professional --- Z86.010, Personal history of colonic polyps K64.8, Other hemorrhoids D12.0, Benign neoplasm of cecum D12.3, Benign neoplasm of transverse colon (hepatic flexure or splenic flexure) Z09, Encounter for follow-up examination after completed treatment for conditions other than malignant neoplasm --- Technical --- Z86.010, Personal history of colonic polyps K64.8, Other hemorrhoids D12.0, Benign neoplasm of cecum D12.3, Benign neoplasm of transverse colon (hepatic flexure or splenic flexure) Z09, Encounter for follow-up examination after completed treatment for conditions other than malignant neoplasm CPT copyright 2017 [employer]. All rights reserved. The codes documented in this report are preliminary and upon medical coder review may be revised to meet current compliance requirements. Attending Participation: I was present and participated during the entire procedure from insertion to removal of the endoscope. __ Janeth Titus MD 07/13/2019 11:10:05 AM This report has been signed electronically. Number of Addenda: 0 Note Initiated On: 07/13/2019 10:03 AM [facility] 07/13/2019 10:0 3 AM CDT Janeth Foreman MD GI PROCEDURE [facility] * EGD (03/23/2019 2:21 PM CDT) Report Endoscopy POC __ _ Patient Name: Eugenia Pinzon Procedure Date: 03/23/2019 2:21 PM Date of : 1960 Admit Type: Outpatient Age: 58 Gender: Female Ethnicity: Not or Race: White Attending MD: Janeth Titus MD __ _ Procedure: Upper GI endoscopy Indications: Dysphagia, For botulinum toxin injection of achalasia Providers: Janeth Titus MD (Doctor), Shawnee Blanchard, Harness Brusher Medicines: Monitored Anesthesia Care Complications: No immediate complications. __ _ Procedure: Pre-Anesthesia Assessment: - Prior to the procedure, a History and Physical was performed, and patient medications, allergies and sensitivities were reviewed. The patient's tolerance of previous anesthesia was reviewed. - The risks and benefits of the procedure and the sedation options and risks were discussed with the patient. All questions were answered and informed consent was obtained. After obtaining informed consent, the endoscope was passed under direct vision. Throughout the procedure, the patient's blood pressure, pulse, and oxygen saturations were monitored continuously. The Endoscope was introduced through the mouth, and advanced to the second part of duodenum. The upper GI endoscopy was accomplished without difficulty. The patient tolerated the procedure well. Impression: - Esophagogastric landmarks identified. - A few gastric polyps. - Normal examined duodenum. - An area in the lower esophageal sphincter successfully injected with botulinum toxin in four quadrants. - No specimens collected. Findings: Esophagogastric landmarks were identified: the Z-line was found at 39 cm, the gastroesophageal junction was found at 39 cm and the site of hiatal narrowing was found at 41 cm from the incisors. Two centimeter hiatal hernia noted. A few sessile polyps with no bleeding were found in the gastric fundus. The stomach appeared otherwise normal. There were no additional abnormalities of the stomach on retroflexion. The examined duodenum was normal. An area at the lower esophageal sphincter was successfully injected with 100 units botulinum toxin. __ _ Recommendation: - Discharge patient to home. - Resume previous diet today. - Continue present medications. - If no improvement consider modified barium swallow with swallow evaluation by speech therapy. Procedure Code(s): --- Professional --- 15918, Esophagogastroduode noscopy, flexible, transoral; with directed submucosal injection(s), any substance --- Technical --- 43121, Esophagogastroduode noscopy, flexible, transoral; with directed submucosal injection(s), any substance Diagnosis Code(s): --- Professional --- K31.7, Polyp of stomach and duodenum R13.10, Dysphagia, unspecified K22.0, Achalasia of cardia --- Technical --- K31.7, Polyp of stomach and duodenum R13.10, Dysphagia, unspecified K22.0, Achalasia of cardia CPT copyright 2017 [employer]. All rights reserved. The codes documented in this report are preliminary and upon medical coder review may be revised to meet current compliance requirements. _ Janeth Titus MD 03/23/2019 2:50:02 PM This report has been signed electronically. Number of Addenda: 0 Note Initiated On: 03/23/2019 2:21 PM [facility] 03/23/2019 2:21 PM CDT Janeth Foreman MD GI PROCEDURE [facility] Organization Address City/State/ZIP Co de Phone Number [facility]COPY * MAMMOGRAM (03/09/2019) Only the most recent of9 resultswithin the time period is included. Anatomical Region Laterality Modality Other Historical Provider SCANNING ONLY * EGD (12/01/2018 9:26 AM VETERINARY SURGERY TECHNICIAN) Report Endoscopy POC Endoscopy Department Report __ _ Patient Name: Eugenia Pinzon Procedure Date: 12/01/2018 9:26 AM Date of : 1960 Classification: Outpatient Gender: Female __ _ Providers: Ruth Ann Cool MD Referring MD: Procedure: Upper GI endoscopy Indications: Dysphagia Medications: Monitored Anesthesia Care Description of Procedure: [...] obtained. Prior Anticoagulants: The patient has taken aspirin, last dose was 7 days prior to procedure. ASA Grade Assessment: III - A patient with severe systemic disease. After reviewing the risks and benefits, the patient was deemed in satisfactory condition to undergo the procedure. After obtaining informed consent, the endoscope was passed under direct vision. Throughout the procedure, the patient's blood pressure, pulse, and oxygen saturations were monitored continuously. The [id number] was introduced through the mouth, and advanced to the second part of duodenum. The upper GI endoscopy was accomplished without difficulty. The patient tolerated the procedure well. Findings: Esophagogastric landmarks were identified: the Z-line was found at 38 cm, the gastroesophageal junction was found at 38 cm and the site of hiatal narrowing was found at 40 cm from the incisors. The esophagus was normal. 2 cm hiatal hernia. Traversed LES easily. A guide wire was placed, then the scope was withdrawn. Using the wire as a guide, dilation with a 30 mm pneumatic balloon was performed under fluoroscopic guidance. Pressure was held for 60 seconds before balloon deflation and withdrawal. Initially a one sided waist was appreciated, this was obliterated by end of procedure. There was a small amount of blood on the balloon. Reinsertion of the scope showed small posterior superficial tear, not-through and through. Retroflexion was normal. Cleaned with water, no bleeding at end of proedure. Multiple pedunculated and sessile polyps with no bleeding and no stigmata of recent bleeding were found in the entire examined stomach. These are known fundic gland polyps. The examined duodenum was normal. Estimated Blood Loss: Estimated blood loss was minimal. Complications: No immediate complications. Impression: - Normal esophagus. - Pneumatic dilation to 30mm with obliteration of the notched area (see photos). - Multiple gastric polyps. - Normal examined duodenum. - No specimens collected. Recommendation: - Patient has a contact number available for emergencies. The signs and symptoms of potential delayed complications were discussed with the patient. Return to normal activities tomorrow. Written discharge instructions were provided to the patient. - NPO for 4 hours, then sip of water. If does ok can be discharged after. - Continue present medications. Attending Participation: I personally performed the entire procedure. Procedure Code(s): --- Professional --- 49781, Esophagogastroduode noscopy, flexible, transoral; with dilation of esophagus with balloon (30 mm diameter or larger) (includes fluoroscopic guidance, when performed) Diagnosis Code(s): --- Professional --- K31.7, Polyp of stomach and duodenum R13.10, Dysphagia, unspecified CPT copyright 2016 [employer]. All rights reserved. The codes documented in this report are preliminary and upon medical coder review may be revised to meet current compliance requirements. ____ Ruth Ann Cool MD 12/01/2018 11:14:03 AM Note Initiated On: 12/01/2018 9:26 AM Number of Addenda: 0 [facility] [address] [place] [address] [facility] [place] 12/01/2018 9:26 AM VETERINARY SURGERY TECHNICIAN Janeth Foreman MD GI PROCEDURE REESE GUARDADO [facility], [place] * POTASSIUM WHOLE BLD (12/01/2018 9:09 AM VETERINARY SURGERY TECHNICIAN) Potassium Whole Blood 3.9 3.5 - 5.5 mmol/L 12/01/2018 9:16 AM VETERINARY SURGERY TECHNICIAN [facility] Blood WHOLE BLOOD SPECIMEN / Unknown Venipuncture / Unknown 12/01/2018 9:09 AM VETERINARY SURGERY TECHNICIAN 12/01/2018 9:11 AM VETERINARY SURGERY TECHNICIAN Carmen Wyman MD LAB - CHEMISTRY O [facility] [place] [id number] [address] [phone] * EGD (09/10/2018 10:11 AM CDT) Report Endoscopy POC __ _ Patient Name: Eugenia Pinzon Procedure Date: 09/10/2018 10:11 AM Date of : 1960 Admit Type: Inpatient Age: 58 Gender: Female Attending MD: Ruth Ann Cool MD __ _ Procedure: Upper GI endoscopy Indications: Dysphagia Providers: Ruth Ann Cool MD (Doctor), Giselle Pritchard RN, Shawnee Haines, Harness Brusher, Merary Alcazar MD (Fellow) Referring MD: Martha Clark MD (Referring MD) Medicines: Monitored Anesthesia Care Complications: No immediate complications. __ _ Procedure: After obtaining informed consent, the endoscope was passed under direct vision. Throughout the procedure, the patient's blood pressure, pulse, and oxygen saturations were monitored continuously. The Endoscope was introduced through the mouth, and advanced to the second part of duodenum. The upper GI endoscopy was accomplished without difficulty. The patient tolerated the procedure well. Impression: - Normal esophagus. Fequent peristalsis. - Multiple gastric polyps, fundic appearing. - Two non-bleeding angioectasias in the stomach. - Erythematous mucosa in the prepyloric region of the stomach. - Normal examined duodenum. - Dilation attempted at the gastroesophageal junction. No resistance to dilation. - Areas at 25 to 35 cm from incisors successfully injected with botulinum toxin, total of 100u botox injected in 1/2cc up the esophagus. - No specimens collected. Findings: The examined esophagus was normal. Esophagogastric landmarks were identified: the Z-line was found at 37 cm, the gastroesophageal junction was found at 37 cm and the site of hiatal narrowing was found at 37 cm from the incisors. There is no endoscopic evidence of stenosis in the entire esophagus. A TTS dilator was passed through the scope. Dilation with a 15-16.5-18 mm balloon (to a maximum balloon size of 18 mm) dilator was performed at the gastroesophageal junction, with no resistance or resultant heme. Estimated blood loss: none. Areas from 25 to 35 cm from the incisors were successfully injected with 100 units botulinum toxin, in 10 areas (0.5 cc per injection). Estimated blood loss was minimal. Multiple small sessile polyps were found in the gastric fundus. Two small no bleeding angioectasias were found on the lesser curvature of the stomach. Localized mildly erythematous mucosa without bleeding was found in the prepyloric region of the stomach. The cardia and gastric fundus were normal on retroflexion. The examined duodenum was normal. __ _ Recommendation: - [facility]. - Clear liquid diet - advance as tolerated to resume regular diet. - Use a proton pump inhibitor PO BID. - Continue present medications. - No ibuprofen, naproxen, or other non-steroidal anti-inflammatory drugs. - Return to GI clinic as previously scheduled. Procedure Code(s): --- Professional --- 71527, Esophagogastroduode noscopy, flexible, transoral; with transendoscopic balloon dilation of esophagus (less than 30 mm diameter) --- Technical --- 93511, Esophagogastroduode noscopy, flexible, transoral; with transendoscopic balloon dilation of esophagus (less than 30 mm diameter) Diagnosis Code(s): --- Professional --- K31.7, Polyp of stomach and duodenum K31.819, Angiodysplasia of stomach and duodenum without bleeding K31.89, Other diseases of stomach and duodenum R13.10, Dysphagia, unspecified E03.9, Hypothyroidism, unspecified G35, Multiple sclerosis --- Technical --- K31.7, Polyp of stomach and duodenum K31.819, Angiodysplasia of stomach and duodenum without bleeding K31.89, Other diseases of stomach and duodenum R13.10, Dysphagia, unspecified E03.9, Hypothyroidism, unspecified G35, Multiple sclerosis CPT copyright 2015 [employer]. All rights reserved. The codes documented in this report are preliminary and upon medical coder review may be revised to meet current compliance requirements. Attending Participation: I was present and participated during the entire procedure, including non-young portions. Ruth Ann Cool MD ____ Ruth Ann Cool MD 09/10/2018 11:21:25 AM Number of Addenda: 0 Note Initiated On: 09/10/2018 10:11 AM [facility] 09/10/2018 10:1 1 AM CDT Janeth Foreman MD GI PROCEDURE REESE [facility]ARDADO [facility] * (ABNORMAL) POTASSIUM BLOOD (09/10/2018 4:21 AM CDT) Potassium 3.3(L) 3.5 - 5.1 mmol/L 09/10/2018 4:56 AM CDT [facility] Blood BLOOD SPECIMEN / Unknown Lab Venipuncture / Unknown 09/10/2018 4:21 AM CDT 09/10/2018 4:33 AM CDT Jaiden Rayo MD LAB - CHEMISTRY REESE GUARDADO Performing Organization Address [facility] de Phone Number [facility] [address] [place] [address] * MAGNESIUM BLOOD (09/09/2018 1:54 PM CDT) Only the most recent of2 resultswithin the time period is included. Magnesium 2.2 1.6 - 2.6 mg/dL 09/09/2018 2:41 PM CDT [facility] Blood BLOOD SPECIMEN / Unknown Lab Venipuncture / Unknown 09/09/2018 1:54 PM CDT 09/09/2018 2:32 PM CDT Godfrey Macias MD LAB - CHEMISTRY ORDERABLES Performing Organization Address [facility] de Phone Number [facility] [address] [place] [address] * EGD (07/28/2018 9:44 AM CDT) Report Endoscopy POC _ Patient Name: Eugenia Pinzon Procedure Date: 07/28/2018 9:44 AM Date of : 1960 Admit Type: Outpatient Age: 57 Gender: Female Attending MD: Janeth Titus MD _ Procedure: Upper GI endoscopy Indications: Dyspepsia, Dysphagia Providers: Janeth Titus MD (Doctor), Jerri Kelly (Fellow), Giuliana Fierro RN, Valerie Butterfield, Harness Brusher Referring MD: Martha Clark MD (Referring MD) Medicines: Monitored Anesthesia Care Complications: No immediate complications. _ Procedure: Pre-Anesthesia Assessment: - Prior to the procedure, a History and Physical was performed, and patient medications and allergies were reviewed. The patient's tolerance of previous anesthesia was also reviewed. The risks and benefits of the procedure and the sedation options and risks were discussed with the patient. All questions were answered, and informed consent was obtained. Prior Anticoagulants: The patient has taken aspirin, last dose was 3 days prior to procedure. ASA Grade Assessment: III - A patient [...] difficulty. The patient tolerated the procedure well. Impression: - Normal esophagus. Dilated to 20 mm. - Erythematous mucosa in the antrum. Biopsied. - Multiple gastric polyps. - Normal examined duodenum. Biopsied. Findings: The examined esophagus was normal. A TTS dilator was passed through the scope. Dilation with an 18-19-20 mm balloon (to a maximum balloon size of 20 mm) dilator was performed. The balloon inflated to 20 mm passed into the stomach with mild resistance. A small amount of heme was noted at the GE junction post dilation. Striped mildly erythematous mucosa without bleeding was found in the gastric antrum. Biopsies were taken with a cold forceps for histology. The cardia and gastric fundus were normal on retroflexion. Multiple small semi-sessile polyps were found in the gastric fundus and in the gastric body. These have been previously biopsied. The examined duodenum was normal. Biopsies were taken with a cold forceps for histology, given the patient's history of diarrhea. No fluid was observed for collection for duodenal aspirate, therefore this was not performed. _ Recommendation: - Await pathology results. - Perform a colonoscopy today. Procedure Code(s): --- Professional --- 07161, Esophagogastroduod enoscopy, flexible, transoral; with transendoscopic balloon dilation of esophagus (less than 30 mm diameter) 20002, Esophagogastroduod enoscopy, flexible, transoral; with biopsy, single or multiple --- Technical --- 93743, Esophagogastroduod enoscopy, flexible, transoral; with transendoscopic balloon dilation of esophagus (less than 30 mm diameter) 13630, Esophagogastroduod enoscopy, flexible, transoral; with biopsy, single or multiple Diagnosis Code(s): --- Professional --- K31.89, Other diseases of stomach and duodenum K31.7, Polyp of stomach and duodenum R10.13, Epigastric pain R13.10, Dysphagia, unspecified --- Technical --- K31.89, Other diseases of stomach and duodenum K31.7, Polyp of stomach and duodenum R10.13, Epigastric pain R13.10, Dysphagia, unspecified CPT copyright 2015 [employer]. All rights reserved. The codes documented in this report are preliminary and upon medical coder review may be revised to meet current compliance requirements. Attending Participation: I personally performed the entire procedure. __ Janeth Titus MD 07/28/2018 10:30:32 AM This report has been signed electronically. Number of Addenda: 0 Note Initiated On: 07/28/2018 9:44 AM [facility] 07/28/2018 9:44 AM CDT Janeth Foreman MD GI PROCEDURE REESE [facility]AD[facility] * ENDOSCOPY, COLON, SCREENING (07/28/2018 9:43 AM CDT) Report Endoscopy POC _ Patient Name: Eugenia Pinzon Procedure Date: 07/28/2018 9:43 AM Date of : 1960 Admit Type: Outpatient Age: 57 Gender: Female Attending MD: Janeth Titus MD _ Procedure: Colonoscopy Indications: High risk colon cancer surveillance: Personal history of multiple colonic polyps. Patient also complains of diarrhea. Last colonoscopy was performed November 2017. >3 adenomatous polyps were removed. Providers: Janeth Titus MD (Doctor), Giuliana Fierro, KIERA, Valerie Butterfield, Harness Brusher Referring MD: Martha Clark MD (Referring MD) Medicines: Monitored Anesthesia Care Complications: No immediate complications. _ Procedure: Pre-Anesthesia Assessment: - Prior to the procedure, a History and Physical was performed, and patient medications and allergies were reviewed. The patient's tolerance of previous anesthesia was also reviewed. The risks and benefits of the procedure and the sedation options and risks were discussed with the patient. All questions were answered, and informed consent was obtained. Prior Anticoagulants: The patient has taken aspirin, last dose was 3 days prior to procedure. ASA Grade Assessment: III - A patient [...] quality of the bowel preparation was good. Impression: - Non-thrombosed external hemorrhoids found on perianal exam. - One diminutive polyp in the cecum, removed with a cold biopsy forceps. Resected and retrieved. - Diverticulosis in the sigmoid colon. - Non-bleeding external and internal hemorrhoids. - The examination was otherwise normal on direct and retroflexion views. Random biopsies obtained. Findings: The perianal exam findings include non-thrombosed external hemorrhoids. A diminutive polyp was found in the cecum. The polyp was sessile. The polyp was removed with a cold biopsy forceps. Resection and retrieval were complete. A few medium-mouthed diverticula were found in the sigmoid colon. Non-bleeding external and internal hemorrhoids were found during retroflexion. The hemorrhoids were small. Random biopsies were obtained throughout the colon to evaluate for microscopic colitis. The exam was otherwise without abnormality on direct and retroflexion views. _ Recommendation: - Patient has a contact number available for emergencies. The signs and symptoms of potential delayed complications were discussed with the patient. Return to normal activities tomorrow. Written discharge instructions were provided to the patient. - Resume previous diet. - Continue present medications. - Await pathology results. - Repeat colonoscopy in 2-3 years for surveillance, given number of polyps found on prior exams. - Return to GI clinic as previously scheduled. Procedure Code(s): --- Professional --- 17109, Colonoscopy, flexible; with biopsy, single or multiple --- Technical --- 67180, Colonoscopy, flexible; with biopsy, single or multiple Diagnosis Code(s): --- Professional --- Z86.010, Personal history of colonic polyps K64.4, Residual hemorrhoidal skin tags K64.8, Other hemorrhoids D12.0, Benign neoplasm of cecum K57.30, Diverticulosis of large intestine without perforation or abscess without bleeding --- Technical --- Z86.010, Personal history of colonic polyps K64.4, Residual hemorrhoidal skin tags K64.8, Other hemorrhoids D12.0, Benign neoplasm of cecum K57.30, Diverticulosis of large intestine without perforation or abscess without bleeding CPT copyright 2015 [employer]. All rights reserved. The codes documented in this report are preliminary and upon medical coder review may be revised to meet current compliance requirements. __ Janeth Titus MD 07/28/2018 10:58:15 AM This report has been signed electronically. Number of Addenda: 0 Note Initiated On: 07/28/2018 9:43 AM [facility] 07/28/2018 9:43 AM CDT Janeth Foreman MD GI PROCEDURE REESE GUARDADO [facility] Organization Address City/State/ZIP Co de Phone Number [facility] * ENDOSCOPY, COLON, SCREENING (12/16/2017 7:12 AM VETERINARY SURGERY TECHNICIAN) Report Endoscopy POC _ Patient Name: Eugenia Pinzon Procedure Date: 12/16/2017 7:12 AM Date of : 1960 Admit Type: Outpatient Age: 57 Gender: Female Attending MD: Janeth Titus MD _ Procedure: Colonoscopy Indications: High risk colon cancer surveillance: Personal history of adenoma less than 10 mm in size. Last colonoscopy occurred in 2015; patient has history of multiple colon tubular adenomas. Providers: Janeth Titus MD (Doctor), Salma Shine RN, Stephanie Verdugo, Harness Brusher Referring MD: Robin Strong MD (Referring MD) Medicines: Monitored Anesthesia Care Complications: No immediate complications. _ Procedure: Pre-Anesthesia Assessment: - Prior to the [...] Prior Anticoagulants: The patient has taken no previous anticoagulant or antiplatelet agents. ASA Grade Assessment: [...] quality of the bowel preparation was good. Impression: - Non-thrombosed external hemorrhoids found on perianal exam. - Diverticulosis in the sigmoid colon. - One 4 mm polyp in the rectum, removed with a cold biopsy forceps. Resected and retrieved. - Two 2 to 4 mm polyps in the transverse colon, removed with a cold biopsy forceps. Resected and retrieved. - Two 6 to 10 mm polyps in the transverse colon, removed with a hot snare. Resected and retrieved. - The examination was otherwise normal on direct and retroflexion views. Findings: The perianal exam findings include non-thrombosed external hemorrhoids. Many medium-mouthed diverticula were found in the sigmoid colon. A 4 mm polyp was found in the rectum. The polyp was sessile. The polyp was removed with a cold biopsy forceps. Resection and retrieval were complete. Two sessile polyps were found in the transverse colon. The polyps were 2 to 4 mm in size. These polyps were removed with a cold biopsy forceps. Resection and retrieval were complete. Two sessile polyps were found in the transverse colon. The polyps were 6 to 10 mm in size. These polyps were removed with a hot snare. Resection and retrieval were complete. The exam was otherwise without abnormality on direct and retroflexion views. _ Recommendation: - Discharge patient to home. - Resume previous diet today. - Continue present medications. - Await pathology results. - Repeat colonoscopy in 2-3 years for surveillance, given number of polyps. - Return to GI office at appointment to be scheduled. Procedure Code(s): --- Professional --- 80440, Colonoscopy, flexible; with removal of tumor(s), polyp(s), or other lesion(s) by snare technique 68155, 59, Colonoscopy, flexible; with biopsy, single or multiple --- Technical --- 55519, Colonoscopy, flexible; with removal of tumor(s), polyp(s), or other lesion(s) by snare technique 62882, 59, Colonoscopy, flexible; with biopsy, single or multiple Diagnosis Code(s): --- Professional --- Z86.010, Personal history of colonic polyps K64.4, Residual hemorrhoidal skin tags K62.1, Rectal polyp D12.3, Benign neoplasm of transverse colon (hepatic flexure or splenic flexure) K57.30, Diverticulosis of large intestine without perforation or abscess without bleeding --- Technical --- Z86.010, Personal history of colonic polyps K64.4, Residual hemorrhoidal skin tags K62.1, Rectal polyp D12.3, Benign neoplasm of transverse colon (hepatic flexure or splenic flexure) K57.30, Diverticulosis of large intestine without perforation or abscess without bleeding CPT copyright 2015 [employer]. All rights reserved. The codes documented in this report are preliminary and upon medical coder review may be revised to meet current compliance requirements. __ Janeth Titus MD 12/16/2017 9:23:45 AM This report has been signed electronically. Number of Addenda: 0 Note Initiated On: 12/16/2017 7:12 AM [facility] 12/16/2017 7:12 AM VETERINARY SURGERY TECHNICIAN Janeth Foreman MD GI PROCEDURE REESE [facility]ARDADO [facility] Organization Address City/State/ZIP Co de Phone Number [facility] * EGD (12/16/2017 7:08 AM VETERINARY SURGERY TECHNICIAN) Report Endoscopy POC __ _ Patient Name: Eugenia Pinzon Procedure Date: 12/16/2017 7:08 AM Date of : 1960 Admit Type: Outpatient Age: 57 Gender: Female Attending MD: Janeth Titus MD __ _ Procedure: Upper GI endoscopy Indications: Dysphagia Providers: Janeth Titus MD (Doctor), Salma Shine RN, Stephanie Verdugo, Harness Brusher Medicines: Monitored Anesthesia Care Complications: No immediate complications. __ _ Procedure: Pre-Anesthesia Assessment: - Prior to the procedure, a History and Physical was performed, and patient medications, allergies and sensitivities were reviewed. The patient's tolerance of previous anesthesia was reviewed. - The risks and benefits of the procedure and the sedation options and risks were discussed with the patient. All questions were answered and informed consent was obtained. After obtaining informed consent, the endoscope was passed under direct vision. Throughout the procedure, the patient's blood pressure, pulse, and oxygen saturations were monitored continuously. The Endoscope was introduced through the mouth, and advanced to the third part of duodenum. The upper GI endoscopy was accomplished without difficulty. The patient tolerated the procedure well. Impression: - Esophagogastric landmarks identified. - Normal esophagus. Dilated to 20 mm at GE junction. - A few gastric polyps, previously biopsied. - Normal examined duodenum. - No specimens collected. Findings: Esophagogastric landmarks were identified: the Z-line was found at 40 cm, the gastroesophageal junction was found at 40 cm and the site of hiatal narrowing was found at 40 cm from the incisors. The examined esophagus was normal. A TTS dilator was passed through the scope. Dilation with an 18-19-20 mm balloon (to a maximum balloon size of 20 mm) dilator was performed. The balloon inflated to 20 mm was able to pass through the GE junction into the stomach with minimal resistance. A few diminutive semi-sessile polyps were found in the gastric fundus on retroflexion. These have been previously biopsied. The examined duodenum was normal. __ _ Recommendation: - Perform a colonoscopy today. - Repeat the upper endoscopy PRN for retreatment. Procedure Code(s): --- Professional --- 07772, Esophagogastroduode noscopy, flexible, transoral; with transendoscopic balloon dilation of esophagus (less than 30 mm diameter) --- Technical --- 79979, Esophagogastroduode noscopy, flexible, transoral; with transendoscopic balloon dilation of esophagus (less than 30 mm diameter) Diagnosis Code(s): --- Professional --- K31.7, Polyp of stomach and duodenum R13.10, Dysphagia, unspecified --- Technical --- K31.7, Polyp of stomach and duodenum R13.10, Dysphagia, unspecified CPT copyright 2015 [employer]. All rights reserved. The codes documented in this report are preliminary and upon medical coder review may be revised to meet current compliance requirements. _ Janeth Titus MD 12/16/2017 9:27:07 AM This report has been signed electronically. Number of Addenda: 0 Note Initiated On: 12/16/2017 7:08 AM [facility] 12/16/2017 7:08 AM VETERINARY SURGERY TECHNICIAN Janeth Foreman MD GI PROCEDURE [facility] Organization Address City/State/ZIP Co de Phone Number [facility] ENDOS[facility] * TYPE + SCREEN PANEL (02/04/2017 8:16 AM VETERINARY SURGERY TECHNICIAN) Typem O POS [facility] Antibody Screen NEG [facility] Blood specimen (specimen) 02/04/2017 8:16 AM VETERINARY SURGERY TECHNICIAN 02/04/2017 8:46 AM VETERINARY SURGERY TECHNICIAN Ck Reinoso MD LAB - BLOOD BANK ORD SHARA Performing Organization Address [facility]/ZIP Co de Phone Number [facility] [address] [place] [address] * (ABNORMAL) TSH (01/29/2017 11:37 AM VETERINARY SURGERY TECHNICIAN) Only the most recent of4 resultswithin the time period is included. Pathologist [facility] TSH <0.004(L) 0.350 - 4.940 uIU/mL [facility] Blood specimen (specimen) BLOOD SPECIMEN / Unknown 01/29/2017 11:37 AM VETERINARY SURGERY TECHNICIAN 01/29/2017 12:14 PM VETERINARY SURGERY TECHNICIAN Ck Reinoso MD LAB - CHEMISTRY REESE GUARDADO Performing Organization Address [facility] Co de Phone Number [address] [phone] * (ABNORMAL) T4 FREE (01/29/2017 11:37 AM VETERINARY SURGERY TECHNICIAN) Only the most recent of3 resultswithin the time period is included. T4 Free 1.6(H) 0.7 - 1.5 ng/dL [facility] Blood specimen (specimen) BLOOD SPECIMEN / Unknown 01/29/2017 11:37 AM VETERINARY SURGERY TECHNICIAN 01/29/2017 12:14 PM VETERINARY SURGERY TECHNICIAN Ck Reinoso MD LAB - CHEMISTRY REESE GUARDADO Performing Organization Address [facility] Co de Phone Number [address] [phone] * EGD (01/28/2017 11:17 AM VETERINARY SURGERY TECHNICIAN) Report Endoscopy POC __ _ Patient Name: Eugenia Pinzon Procedure Date: 01/28/2017 11:17 AM Date of : 1960 Admit Type: Outpatient Age: 56 Gender: Female Attending MD: Janeth Titus MD __ _ Procedure: Upper GI endoscopy Indications: Dysphagia Providers: Janeth Titus MD (Doctor), Cathy Alicea RN, Stephanie Blanchard, Harness Brusher Referring MD: Martha Clark MD (Referring MD) Medicines: Monitored Anesthesia Care Complications: No immediate complications. __ _ Procedure: Pre-Anesthesia Assessment: - Prior to the [...] Prior Anticoagulants: The patient has taken no previous anticoagulant or antiplatelet agents. ASA Grade Assessment: [...] difficulty. The patient tolerated the procedure well. Impression: - Esophagogastric landmarks identified. - Normal esophagus. - A few gastric polyps. - Normal examined duodenum. - Dilation attempted at the gastroesophageal junction to 20 mm. Successful. - No specimens collected. Findings: Esophagogastric landmarks were identified: the Z-line was found at 40 cm, the gastroesophageal junction was found at 40 cm and the site of hiatal narrowing was found at 40 cm from the incisors. The esophagus was normal. A few small sessile polyps were found in the gastric fundus. These have been previously biopsied. The examined duodenum was normal. The cardia and gastric fundus were otherwise normal on retroflexion. A TTS dilator was passed through the scope. Dilation with an 18-19-20 mm balloon (to a maximum balloon size of 20 mm) dilator was performed at the gastroesophageal junction. A small amount of heme was observed post dilation. __ _ Recommendation: - Discharge patient to home. - Resume previous diet. - Continue present medications. - Repeat the upper endoscopy PRN for retreatment. - Return to GI clinic as previously scheduled. Procedure Code(s): --- Professional --- 40533, Esophagogastroduode noscopy, flexible, transoral; with transendoscopic balloon dilation of esophagus (less than 30 mm diameter) --- Technical --- 14823, Esophagogastroduode noscopy, flexible, transoral; with transendoscopic balloon dilation of esophagus (less than 30 mm diameter) Diagnosis Code(s): --- Professional --- K31.7, Polyp of stomach and duodenum R13.10, Dysphagia, unspecified --- Technical --- K31.7, Polyp of stomach and duodenum R13.10, Dysphagia, unspecified CPT copyright 2015 [employer]. All rights reserved. The codes documented in this report are preliminary and upon medical coder review may be revised to meet current compliance requirements. _ Janeth Titus MD 01/28/2017 11:46:57 AM This report has been signed electronically. Number of Addenda: 0 Note Initiated On: 01/28/2017 11:17 AM [facility] 01/28/2017 11:1 7 AM VETERINARY SURGERY TECHNICIAN Janeth Foreman MD GI PROCEDURE ORDE DEBBY Performing Organization Address City/[facility]/ZIP Co de Phone Number [facility] * CORTISOL FREE URINE TIMED (10/20/2016 10:03 AM VETERINARY SURGERY TECHNICIAN) Volume (UVOL) 3300 mL [facility]) Cortisol Free Urine 11.2 4.0 - 50.0 mcg/24 h [facility] Comment: Analysis performed by [employer] This test was developed and its analytical performance characteristics have been determined by [facility]. It has not been cleared or approved by FDA. This assay has been validated pursuant to the CLIA regulations and is used for clinical purposes. Creatinine Urine 1.12 0.63 - 2.50 g/24 h [facility]) Comment: REPORT COMMENT: SPLIT 10/17/2016 FROM [id number] Test Performed at: [facility] [address] [place] [address] KATHLEEN DALEY MD PHD 10/20/2016 10:0 3 AM VETERINARY SURGERY TECHNICIAN 10/20/2016 10:04 AM VETERINARY SURGERY TECHNICIAN Martha Clark MD LAB - URINE CHEMISTR Y ORDERABLES [facility]) * XR CHEST 2VW (10/13/2016 12:17 PM VETERINARY SURGERY TECHNICIAN) Only the most recent of3 resultswithin the time period is included. Anatomical Region Laterality Modality Chest Other Impressions 10/13/2016 3:36 PM VETERINARY SURGERY TECHNICIAN IMPRESSION: No acute pulmonary process. Report dictated by Suellen Basurto M.D. This report was approved by Suellen Basurto M.D. on 10/13/2016 2:[address] ABDIAZIZ Carranza M.D. have personally reviewed and interpreted this examination/study. This report was electronically signed by ABDIAZIZ PARKS M.D. on 10/13/2016 3:36 PM . Narrative 10/13/2016 3:36 PM VETERINARY SURGERY TECHNICIAN EXAM: Chest, PA and lateral views HISTORY: Cough and shortness of breath COMPARISON: PA and lateral chest from 06/21/2016 FINDINGS: Minimal linear atelectasis is seen at the lung bases. There is no evidence of focal consolidation, pleural effusion, or pneumothorax. The cardiomediastinal silhouette is normal. The visible osseous structures are intact. Degenerative changes are present in the thoracic spine. Procedure Note Abdiaziz Parks MD - 02/27/2018 EXAM: Chest, PA and lateral views HISTORY: Cough and shortness of breath COMPARISON: PA and lateral chest from 06/21/2016 FINDINGS: Minimal linear atelectasis is seen at the lung bases. There is no evidenceof focal consolidation, pleural effusion, or pneumothorax. Thecardiomediastinal silhouette is normal. The visible osseous structures areintact. Degenerative changes are present in the thoracic spine. IMPRESSION IMPRESSION: No acute pulmonary process. Report dictated by Suellen Basurto M.D. This report was approved by Suellen Basurto M.D. on 10/13/2016 2:29PM . Dr. ABDIAZIZ Carranza M.D. have personally reviewed and interpreted thisexamination/study. This report was electronically signed by ABDIAZIZ PARKS M.D. on10/13/2016 3:36 PM . Dayami Wallace L[employer]ATION [employer]NER[employer] SURVEY WORKER DIAGNOSTIC IMAGIN G ORDERABLES * URINALYSIS AUTO - POINT OF CARE (AMB) [facility] (09/03/2016 10:33 AM CDT) Glucose UA neg [facility] Bilirubin UA POCT neg [facility] Ketones UA POCT neg [facility] Specific [place] UA 1.030 [facility] Blood Urine POCT neg [facility] pH UA 6.0 [facility] Protein UA +- 0.15 g/L [facility] Urobilinogen UA 3.5 [facility] Nitrite UA neg [facility] WBC UA neg [facility] Urine specimen (specimen) 09/03/2016 10:33 AM CDT Ni Thapa DO LAB - POINT OF CAR E ORDERABLES [facility] * (ABNORMAL) URINALYSIS W/MICROSCOPIC NO CULTURE (06/25/2016 8:15 AM CDT) Only the most recent of2 resultswithin the time period is included. Color UA Yellow Straw, Yellow, Colorless, Light Yellow [facility] Clarity UA Clear Clear [facility] Specific [place] UA 1.008 1.001 - 1.030 [facility] pH UA 6.5 5.0 - 8.0 [facility] Protein UA Negative <=20 mg/dL [facility] Glucose UA Negative Negative mg/dL [facility] Ketone UA Negative Negative mg/dL [facility] Bilirubin UA Negative Negative mg/dL [facility] Blood UA Negative Negative [facility] Nitrite UA Negative Negative [facility] Leukocyte Esterase Negative Negative [facility] Urobilinogen UA <2.0 <2.0 mg/dL [facility] RBC UA 1 0 - 8 /HPF [facility] WBC UA <1 0 - 2 /HPF [facility] Bacteria UA Rare Rare, Occasional, None /HPF [facility] Squamous Epithelial Cells UA 1 0 - 1 /HPF [facility] Mucus UA Moderate(A) None /LPF [facility] Urine specimen (specimen) URINE SPECIMEN OBTAINED BY CLEAN CATCH PROCEDURE / Unknown 06/25/2016 8:15 AM CDT 06/25/2016 8:21 AM CDT Eladio Nevarez MD LAB - URINALYSIS ORD ERABLES [address] [phone] * PT-INR [facility] (06/25/2016 4:54 AM CDT) Only the most recent of3 resultswithin the time period is included. PT 12.6 12.1 - 14.8 Seconds [facility] INR 1.0 See Comment [facility] Comment: Suggested therapeutic range for low-intensity coumadin therapy for venous thromboembolism prophylaxis is an INR of 2.0-3.0. For high risk patients (Mitral Valve Prosthesis, Atrial Fibrillation, history of TIA/stroke), suggested prophylactic therapeutic range is an INR of 2.5-3.5. Blood specimen (specimen) BLOOD SPECIMEN / Unknown 06/25/2016 4:54 AM CDT 06/25/2016 5:13 AM CDT Narrative [facility] - 06/25/2016 5:29 AM CDT Is patient on Heparin, Argatroban or Dabigatran?->N Eladio Nevarez MD LAB - COAGULATION OR DERABLES Performing Organization Address [facility] Co de Phone Number [address] [phone] * CULTURE URINE (06/23/2016 2:38 AM CDT) Culture Urine Less than 10,000 CFU/ML of Normal Urogenital/ Skin Silva [facility] Comment: Urine specimen (specimen) URINE / Unknown 06/23/2016 2:38 AM CDT 06/23/2016 2:38 AM CDT Narrative [facility] - 06/25/2016 2:29 PM CDT Specimen Type->Urine Eladio Nevarez MD LAB - MICROBIOLOGY O RDERABLES Performing Organization Address [facility]/ZIP Co de Phone Number [address] [phone] * ECHO STRESS COLOR FLOW AND DOPPLER (06/23/2016 12:00 AM CDT) Anatomical Region Laterality Modality Other 06/23/2016 Eladio Nevarez MD ECHOCARDIOGRAPHY RAD IANT * (ABNORMAL) URINALYSIS REFLEX TO MICROSCOPIC NO CULTURE (06/22/2016 5:20 PM CDT) Color UA Yellow Straw, Yellow, Colorless, Light Yellow [facility] Clarity UA Clear Clear [facility] Specific [place] UA 1.022 1.001 - 1.030 [facility] pH UA 6.5 5.0 - 8.0 [facility] Protein UA 20 <=20 mg/dL [facility] Glucose UA Negative Negative mg/dL [facility] Ketone UA 15(A) Negative mg/dL [facility] Bilirubin UA Negative Negative mg/dL [facility] Blood UA Negative Negative [facility] Nitrite UA Negative Negative [facility] Leukocyte Esterase Negative Negative [facility] Urobilinogen UA <2.0 <2.0 mg/dL [facility] RBC UA 1 0 - 8 /HPF [facility] WBC UA <1 0 - 2 /HPF [facility] Squamous Epithelial Cells UA <1 0 - 1 /HPF [facility] Mucus UA Moderate(A) None /LPF [facility] Urine specimen (specimen) URINE SPECIMEN OBTAINED BY CLEAN CATCH PROCEDURE / Unknown 06/22/2016 5:20 PM CDT 06/22/2016 5:43 PM CDT Eladio Nevarez MD LAB - URINALYSIS ORD ERABLES Performing Organization Address City/State/[facility] Co de Phone Number [address] [phone] * PTT [facility] (06/22/2016 1:56 AM CDT) APTT 32.0 23.0 - 38.4 Seconds [facility] Comment:Suggested therapeuti c range for full dose I.V. heparin therapy for venous thromboembolism is 66.0-91.0 seconds. Blood specimen (specimen) BLOOD SPECIMEN / Unknown 06/22/2016 1:56 AM CDT 06/22/2016 1:56 AM CDT Narrative [facility] - 06/22/2016 2:34 AM CDT Is patient on Heparin, Argatroban or Dabigatran?->N Eladio Nevarez MD LAB - COAGULATION OR DERABLES [address] [phone] * TROPONIN I (06/22/2016 1:56 AM CDT) Only the most recent of3 resultswithin the time period is included. Troponin I <0.010 <0.032 ng/mL [facility] Blood specimen (specimen) BLOOD SPECIMEN / Unknown 06/22/2016 1:56 AM CDT 06/22/2016 1:56 AM CDT Eladio Nevarez MD LAB - CHEMISTRY ORDE RABLES Performing Organization Address City/[facility]/ZIP Co de Phone Number [address] [phone] * HEMOGLOBIN A1C (06/22/2016 1:56 AM CDT) Hemoglobin A1c 5.4 4.4 - 6.3 % [facility] Estimated Average Glucose 108 mg/dL [facility] Comment: HbA1c Interpretation: Treatment target values recommended by ADA and other clinical organizations should be used to evaluate metabolic control in patients. Treatment Target Values: Normal : < 5.7% Pre-diabetes: 5.7-6.4% Diabetes: Equal to or greater than 6.5% Reference: [place] [employer] Standards of Care in Diabetes -2014 In patients 70 years and older consider HbA1c target range of 7.0-7.5% Reference: Diabetes Mellitus in Older People: Position Statement on behalf of the International Association of Gerontology and Geriatrics (IAGG), the Diabetes Working Libertarian for Older People (EDWPOP), and the International Task Force of Experts in Diabetes. Osiel New, et al. J [employer]. 2012 Test results diagnostic of diabetes should be repeated for confirmation. The Tosoh G8 assay for the measurement of HbA1c is a National Glycohemoglobin Standardization Program (NGSP)certified method. Results for patients with HbE disease should be interpreted with caution as this hemoglobinopathy has been shown to interfere with the Tosoh G8 assay. Blood specimen (specimen) BLOOD SPECIMEN / Unknown 06/22/2016 1:56 AM CDT 06/22/2016 1:56 AM CDT Eladio Nevarez MD LAB - CHEMISTRY REESE GUARDADO Performing Organization Address City/[facility]/ZIP Co de Phone Number [address] [phone] * CK + CKMB PANEL (06/22/2016 1:56 AM CDT) Only the most recent of3 resultswithin the time period is included. Pathologist [facility] CK Total 52 30 - 200 Units/L [facility] CK-MB 1.4 0.0 - 6.6 ng/mL [facility] Blood specimen (specimen) BLOOD SPECIMEN / Unknown 06/22/2016 1:56 AM CDT 06/22/2016 1:56 AM CDT Eladio Nevarez MD LAB - CHEMISTRY REESE GUARDADO Performing Organization Address [facility] Co de Phone Number [address] [phone] * (ABNORMAL) LIPID PROFILE (06/22/2016 1:56 AM CDT) Cholesterol Total 194 <200 mg/dL [facility] HDL 68 >40 mg/dL [facility] Comment: ATP III Classification of HDL Cholesterol: <40 mg/dL: Considered a major risk factor. >60 mg/dL: Considered a negative risk factor. LDL Calculated 106(H) <100 mg/dL [facility] Comment: ATP III Classification of LDL Cholesterol: <100 mg/dL: Optimal 100 - 129 mg/dL: Near Optimal/Above Optimal 130 - 159 mg/dL: Borderline High 160 - 189 mg/dL: High >190 mg/dL: Very High Triglycerides 99 <150 mg/dL [facility] Comment: ATP III Classification of Triglycerides: <150 mg/dL: Normal 150 - 199 mg/dL: Borderline High 200 - 400 mg/dL: High >500 mg/dL: Very High Blood specimen (specimen) BLOOD SPECIMEN / Unknown 06/22/2016 1:56 AM CDT 06/22/2016 1:56 AM CDT Eladio Nevarez MD LAB - CHEMISTRY REESE GUARDADO Performing Organization Address [facility]/ZIP Co de Phone Number [address] [phone] * ECHO STRESS TEST W DOBUTAMINE (06/22/2016 12:00 AM CDT) Anatomical Region Laterality Modality Other 06/22/2016 Eladio Nevarez MD ECHOCARDIOGRAPHY RAD IANT * (ABNORMAL) HEPATIC FUNCTION PANEL (06/21/2016 8:10 PM CDT) Protein Total 7.7 6.0 - 8.3 g/dL [facility] Albumin 3.7 3.4 - 5.0 g/dL [facility] Bilirubin Total 0.6 0.2 - 1.2 mg/dL [facility] Bilirubin Conjugated 0.2 0.0 - 0.5 mg/dL [facility] Bilirubin Unconjugated 0.4 Unconjugated Bilirubin is a calculated value: Reference ranges have not been established. mg/dL [facility] Alkaline Phosphatase 162(H) 40 - 150 Units/L [facility] ALT 54 0 - 55 Units/L [facility] AST 26 5 - 34 Units/L [facility] Albumin/Globulin Ratio 0.9(L) 1.1 - 2.3 [facility] Blood specimen (specimen) BLOOD SPECIMEN / Unknown 06/21/2016 8:10 PM CDT 06/21/2016 8:18 PM CDT Zaki Ibrahim MD LAB - CHEMISTRY REESE GUARDADO Performing Organization Address [facility]/ZIP Co de Phone Number [address] [phone] * COMPLETE PFT W/WO BRONCHODILATOR (11/07/2015 12:33 PM VETERINARY SURGERY TECHNICIAN) 11/07/2015 12:3 3 PM VETERINARY SURGERY TECHNICIAN Narrative [facility] - 11/07/2015 12:33 PM VETERINARY SURGERY TECHNICIAN Print Requisition Now?->No Does this order require further action?->No Mickey Felix MD RESPIRATORY THERAPY ORDERABLES [facility] [address] * COMPLETE PFT W/WO BRONCHODILATOR (11/07/2015 12:33 PM VETERINARY SURGERY TECHNICIAN) Impressions [facility] - 11/07/2015 12:33 PM VETERINARY SURGERY TECHNICIAN [facility] DEPARTMENT OF PULMONARY, CRITICAL CARE, AND SLEEP MEDICINE PULMONARY FUNCTION TESTS Eugenia Pinzon 11/11/2015 INTERPRETATION Please see technologist's comments mentioned above. SPIROMETRY: Forced vital capacity is normal. FEV1 is normal. FEV1/FVC ratio is normal. There is no significant response to bronchodilator administration. MVV effort was less than 32 x FEV1. The inspection of the patient's flow-volume loops shows normal configuration of the inspiratory and expiratory limbs. LUNG VOLUMES: Lung volumes by body plethysmography are within normal limits. DLCO: Diffusing capacity unadjusted for Hb and COHb is increased. AIRWAY RESISTANCE: The airway resistance and the specific conductance are normal. IMPRESSION: 1. Normal spirometry with the exception of decreased Maximum minute ventilation (MVV). Please consider ordering maximal inspiratory pressure (MIP) and maximal expiratory pressure (MEP) if there is concern for neuromuscular weakness. 2. There is no significant response to bronchodilator administration. This does not preclude the use of bronchodilator therapy if clinically indicated. 3. Increase in diffusion capacity unadjusted for hemoglobin and carboxyhemoglobin. Recommend repeating the study to include arterial blood gas analysis if clinically indicated. 4. Compared to the study dated 11/03/2014, there is no significant change in FVC, FEV1, TLC, or DLCO. Samir Cummins MD I have personally reviewed the test and agreed with the interpretation. Pedro Ann M.D., [facility] Narrative Procedure Note Provider, MD Kavitha - 05/07/2018 IMPRESSION [facility] DEPARTMENT OF PULMONARY, CRITICAL CARE, AND SLEEP MEDICINE PULMONARY FUNCTION TESTS Eugenia Pinzon 11/11/2015 INTERPRETATION Please see technologist's comments mentioned above. SPIROMETRY: Forced vital capacity is normal. FEV1 is normal. FEV1/FVC ratio is normal. There is no significant response to bronchodilator administration. MVV effort was less than 32 x FEV1. The inspection of the patient's flow-volume loops shows normal configuration of the inspiratory and expiratory limbs. LUNG VOLUMES: Lung volumes by body plethysmography are within normal limits. DLCO: Diffusing capacity unadjusted for Hb and COHb is increased. AIRWAY RESISTANCE: The airway resistance and the specific conductance are normal. IMPRESSION: 1. Normal spirometry with the exception of decreased Maximum minute ventilation (MVV). Please consider ordering maximal inspiratory pressure (MIP) and maximal expiratory pressure (MEP) if there is concern for neuromuscular weakness. 2. There is no significant response to bronchodilator administration. This does not preclude the use of bronchodilator therapy if clinically indicated. 3. Increase in diffusion capacity unadjusted for hemoglobin and carboxyhemoglobin. Recommend repeating the study to include arterial blood gas analysis if clinically indicated. 4. Compared to the study dated 11/03/2014, there is no significant change in FVC, FEV1, TLC, or DLCO. Samir Cummins MD I have personally reviewed the test and agreed with the interpretation. Pedro Ann M.D., [facility] Mickey Felix MD RESPIRATORY THERAPY ORDERABLES [facility] * (ABNORMAL) CULTURE FUNGUS OTHER+FUNGUS SMEAR (10/11/2015 11:09 AM VETERINARY SURGERY TECHNICIAN) Only the most recent of2 resultswithin the time period is included. Culture Fungus-Other NERY ALBICANS(A) [facility] Comment:Heavy Growth Nery Albicans Fungus Smear [facility] Comment:no smear Throat swab (specimen) ENTIRE THROAT (SURFACE REGION OF NECK) / Unknown 10/11/2015 11:09 AM VETERINARY SURGERY TECHNICIAN 10/12/2015 11:09 AM VETERINARY SURGERY TECHNICIAN Narrative [facility] - 11/13/2015 9:17 AM VETERINARY SURGERY TECHNICIAN Specimen Type->Throat Organism Antibiotic Method Susceptibility Nery albicans Fluconazole SUSCEPTIBILITY <=1: Sensitive Nery albicans Caspofungin SUSCEPTIBILITY <=0.25: Sensitive Nery albicans Voriconazole SUSCEPTIBILITY <=0.12: Sensitive Constance Flores MD LAB - MICROBI OLOGY ORDERABLES [facility] [address] [phone] * CD4/CD8 + RATIO PANEL BLOOD (09/20/2015) CD4 % 52 30 - 61 % [facility]) CD4 Absolute 1334 490 - 1740 cells/uL [facility]) CD8 % 18 12 - 42 % [facility] CD8 ABS 457 180 - 1170 cells/uL [facility]) CD4/CD8 Ratio 2.92 0.86 - 5.00 [facility]) Lymphocyte Absolute Manual 2,556 850 - 3,900 cells/uL [facility]) Comment: Test Performed at: [id number] [address] NANCY ISABEL MD 09/20/2015 09/20/2015 9:1 8 PM CDT Constance Flores MD LAB - HEMATOL OGY ORDERABLES [facility]) * CT FACIAL BONES WO CONTRAST (11/21/2014 4:19 PM VETERINARY SURGERY TECHNICIAN) Anatomical Region Laterality Modality Head Other Impressions 11/21/2014 5:26 PM VETERINARY SURGERY TECHNICIAN IMPRESSION: 1. No significant paranasal sinus disease or complications identified. This report was electronically signed by VOLODYMYR GUPTA M.D. on 11/21/2014 5:26 PM . Narrative 11/21/2014 5:26 PM VETERINARY SURGERY TECHNICIAN EXAMINATION: Computed tomography (CT) of the maxillofacial bones, orbits, and paranasal sinuses without contrast HISTORY: Sinusitis TECHNIQUE: CT of the maxillofacial bones, orbits, and paranasal sinuses was performed without contrast according to standard protocol. FINDINGS: No prior study is available for comparison. The orbits appear normal. The paranasal sinuses are clear. The ostiomeatal units are open and the nasal septum is midline. The hard palate, visible portions of the mandible, and temporomandibular joints appear normal. No bony destruction or dehiscence is identified. The mastoid air cells are clear. No soft tissue abnormality is identified. Procedure Note Volodymyr Gupta MD - 02/27/2018 EXAMINATION: Computed tomography (CT) of the maxillofacial bones, orbits,and paranasal sinuses without contrast HISTORY: Sinusitis TECHNIQUE: CT of the maxillofacial bones, orbits, and paranasal sinuseswas performed without contrast according to standard protocol. FINDINGS: No prior study is available for comparison. The orbits appear normal. The paranasal sinuses are clear. The ostiomeatalunits are open and the nasal septum is midline. The hard palate, visibleportions of the mandible, and temporomandibular joints appear normal. Nobony destruction or dehiscence is identified. The mastoid air cells are clear. No soft tissue abnormalityis identified. IMPRESSION IMPRESSION: 1. No significant paranasal sinus disease or complications identified. This report was electronically signed by VOLODYMYR GUPTA M.D. on11/21/2014 5:26 PM . Neftaly Araujo MD CT ORDERABLES * GIARDIA SCREEN DFA (11/16/2014 10:38 AM VETERINARY SURGERY TECHNICIAN) Giardia Antigen Screen No Giardia Lamblia Cysts seen. Negative [facility] Stool specimen (specimen) STOOL SPECIMEN / Unknown 11/16/2014 10:38 AM VETERINARY SURGERY TECHNICIAN 11/16/2014 2:42 PM VETERINARY SURGERY TECHNICIAN Narrative [facility] - 11/20/2014 3:56 PM VETERINARY SURGERY TECHNICIAN AndersonSpecimen#[id number] Ihsan Loc/Rm/Bed: SURG CENTR// Historical Provider LAB - MICROBIOLOG Y ORDERABLES [address] [phone] * CULTURE STOOL+ E COLI SHIGA-LIKE TOXIN (11/16/2014 10:38 AM VETERINARY SURGERY TECHNICIAN) Culture Feces No Salmonella, Shigella, Yersinia, Campylobacter or Escherichia Coli 0157:H7 isolated. Negative for Shiga Toxin by Immunoassay. [facility] Stool specimen (specimen) STOOL SPECIMEN / Unknown 11/16/2014 10:38 AM VETERINARY SURGERY TECHNICIAN 11/16/2014 2:42 PM VETERINARY SURGERY TECHNICIAN [facility] - 11/20/2014 1:24 PM VETERINARY SURGERY TECHNICIAN AndersonSpecimen#[id number] Ihasn Loc/Rm/Bed: SURG CENTR// Historical Provider LAB - MICROBIOLOG Y ORDERABLES Performing Organization Address [facility] [facility] Co de Phone Number [address] [phone] * CLOSTRIDIUM DIFFICILE [facility] + TOXIN A+B (11/16/2014 10:38 AM VETERINARY SURGERY TECHNICIAN) C difficile Antigen Negative Negative [facility] C difficile Toxin Negative Negative [facility] Stool specimen (specimen) STOOL SPECIMEN / Unknown 11/16/2014 10:38 AM VETERINARY SURGERY TECHNICIAN 11/16/2014 2:42 PM VETERINARY SURGERY TECHNICIAN [facility] - 11/16/2014 4:32 PM VETERINARY SURGERY TECHNICIAN AndersonSpecimen#[id number] Ihsan Loc/Rm/Bed: SURG CENTR// Historical Provider LAB - MICROBIOLOG Y ORDERABLES Performing Organization Address [facility] Co de Phone Number [address] [phone] * CRYPTOSPORIDIUM ANTIGEN (11/16/2014 10:38 AM VETERINARY SURGERY TECHNICIAN) Cryptosporidium Antigen Screen No Cryptosporidium Oocysts seen. Negative [facility] Stool specimen (specimen) STOOL SPECIMEN / Unknown 11/16/2014 10:38 AM VETERINARY SURGERY TECHNICIAN 11/16/2014 2:42 PM VETERINARY SURGERY TECHNICIAN [facility] - 11/20/2014 3:55 PM VETERINARY SURGERY TECHNICIAN AndersonSpecimen#[id number] Ihsan Loc/Rm/Bed: SURG CENTR// Historical Provider LAB - MICROBIOLOG Y ORDERABLES [address] [phone] * COMPLETE PFT W/WO BRONCHODILATOR (11/03/2014 9:47 AM VETERINARY SURGERY TECHNICIAN) Impressions [facility] - 11/03/2014 9:47 AM VETERINARY SURGERY TECHNICIAN [facility] DEPARTMENT OF PULMONARY, CRITICAL CARE, AND SLEEP MEDICINE PULMONARY FUNCTION TESTS Eugenia Barrosgers 11/03/2014 INTERPRETATION Please see technologist's comments mentioned above. SPIROMETRY: Forced vital capacity is normal. FEV1 is normal. FEV1/FVC ratio is normal. The inspection of the patient's flow-volume loops shows normal configuration of the inspiratory and expiratory limbs. MIP and MEP are both decreased below the lower limit of normal. LUNG VOLUMES: Lung volumes by body plethysmography are within normal limits. DLCO: Diffusing capacity adjusted for Hb and COHb is above the upper limits of normal. AIRWAY RESISTANCE: The airway resistance and the specific conductance are normal. ARTERIAL BLOOD GAS ANALYSIS: ABG drawn on RA revealed normal oxygenation and acid-base balance. IMPRESSION: 1. Normal Pulmonary Function Test 2. Maximal inspiratory pressure and maximal expiratory pressure are decreased below the lower limit of normal. Recommend clinical correlation. 3. DLCO adjusted for hemoglobin and carboxyhemoglobin is increased. 4. There is no previous study available for comparison. Jacob Kenny MD ATTENDING PHYSICIAN ATTESTATION/MELANIE GARNER M.D.: I have personally reviewed and interpreted the above test and I have made the necessary changes if needed to the above interpretation. Narrative Procedure Note Provider, MD Kavitha - 05/07/2018 IMPRESSION [facility] DEPARTMENT OF PULMONARY, CRITICAL CARE, AND SLEEP MEDICINE PULMONARY FUNCTION TESTS Eugenia Joyner [place] 11/03/2014 INTERPRETATION Please see technologist's comments mentioned above. SPIROMETRY: Forced vital capacity is normal. FEV1 is normal. FEV1/FVC ratio is normal. The inspection of the patient's flow-volume loops shows normal configuration of the inspiratory and expiratory limbs. MIP and MEP are both decreased below the lower limit of normal. LUNG VOLUMES: Lung volumes by body plethysmography are within normal limits. DLCO: Diffusing capacity adjusted for Hb and COHb is above the upper limits of normal. AIRWAY RESISTANCE: The airway resistance and the specific conductance are normal. ARTERIAL BLOOD GAS ANALYSIS: ABG drawn on RA revealed normal oxygenation and acid-base balance. IMPRESSION: 1. Normal Pulmonary Function Test 2. Maximal inspiratory pressure and maximal expiratory pressure are decreased below the lower limit of normal. Recommend clinical correlation. 3. DLCO adjusted for hemoglobin and carboxyhemoglobin is increased. 4. There is no previous study available for comparison. Jacob Kenny MD ATTENDING PHYSICIAN ATTESTATION/MELANIE GARNER M.D.: I have personally reviewed and interpreted the above test and I have made the necessary changes if needed to the above interpretation. Ml Davison APNP-OPINION POLLS SURVEY WORKER RESPIRAT ORY THERAPY ORDERABLES Performing Organization Address City/[facility]/ZIP Co de Phone Number [facility] * (ABNORMAL) BLOOD GASES ART - PFT (11/03/2014 8:34 AM VETERINARY SURGERY TECHNICIAN) pH Arterial 7.44 7.35 - 7.45 [facility] pCO2 Arterial 40 35 - 45 mmHg [facility] pO2 Arterial 92 77 - 101 mmHg [facility] HCO3 Arterial 26.7(H) 22.0 - 26.0 mmol/L [facility] TCO2 Arterial 27.9 25.0 - 29.0 mmol/L [facility] Base Excess Arterial 2.9(H) -2.0 - 2.0 mmol/L [facility] Hemoglobin Arterial 14.8 12.0 - 15.5 g/dL [facility] Oxyhemoglobin Arterial 98.1 95.0 - 100.0 % [facility] Carboxyhemoglobin 1.0 0.0 - 3.0 % [facility] Methemoglobin 0.3 0.0 - 2.0 % [facility] FI O2 Arterial 20.9 % [facility] Blood specimen (specimen) ARTERY SPECIMEN / Unknown 11/03/2014 8:34 AM VETERINARY SURGERY TECHNICIAN 11/03/2014 9:12 AM VETERINARY SURGERY TECHNICIAN Narrative [facility] - 11/03/2014 9:14 AM VETERINARY SURGERY TECHNICIAN Room air (21%)->Yes FiO2->20.9 Liters/minute->0 Mickey Felix MD LAB - BLOOD GASES O RDERABLES Performing Organization Address City/[facility]/ZIP Co de Phone Number [facility] [address] [phone] * ECHO W DOPPLER AND COLOR FLOW (11/03/2014 12:00 AM VETERINARY SURGERY TECHNICIAN) Anatomical Region Laterality Modality Other 11/03/2014 Ml A Dettenmeier APNP-OPINION POLLS SURVEY WORKER ECHOCARD IOGRAPHY RADIANT * METHYLMALONIC ACID BLOOD (10/25/2014 10:20 AM VETERINARY SURGERY TECHNICIAN) Methylmalonic Acid 149 87 - 318 nmol/L [facility]) Comment: Test Performed at: [facility] [address] [place] [address] KATHLEEN DALEY MD PHD Blood specimen (specimen) BLOOD SPECIMEN / Unknown 10/25/2014 10:20 AM VETERINARY SURGERY TECHNICIAN 10/25/2014 10:20 AM VETERINARY SURGERY TECHNICIAN Ml A Dettenmeier APNP-OPINION POLLS SURVEY WORKER LAB - CH EMISTRY ORDERABLES Performing Organization Address City/[facility]/ZIP Co de Phone Number [facility]) * (ABNORMAL) ZINC BLOOD (10/25/2014 10:20 AM VETERINARY SURGERY TECHNICIAN) Zinc 195(H) 60 - 130 mcg/dL [facility]) Comment: Test Performed at: [facility] [id number] [place] [id number] DEZ FONSECA MD,FCAP Blood specimen (specimen) BLOOD SPECIMEN / Unknown 10/25/2014 10:20 AM VETERINARY SURGERY TECHNICIAN 10/25/2014 10:20 AM VETERINARY SURGERY TECHNICIAN Ml A Dettenmeier APNP-[facility] LAB - CH EMISTRY ORDERABLES [facility]) * IRON + TIBC PANEL (10/25/2014 10:20 AM VETERINARY SURGERY TECHNICIAN) Iron 64 45 - 160 mcg/dL [facility] TIBC 355 250 - 450 mcg/dL [facility]) Iron Saturation 18 11 - 50 % (calc) [facility]) Comment: Test Performed at: [facility] [address] [facility]247 [place] [address] GRADY CONTRERAS DO,MPH Serum 10/25/2014 10:2 0 AM VETERINARY SURGERY TECHNICIAN 10/25/2014 10:20 AM VETERINARY SURGERY TECHNICIAN Ml A Dettenmeier [facility] LAB - CH EMISTRY ORDERABLES [facility]) * (ABNORMAL) VITAMIN B12 FOLATE PANEL (10/25/2014 10:20 AM VETERINARY SURGERY TECHNICIAN) Vitamin B12 >2,000(H) 200 - 1,100 pg/mL [facility]) Folate 21.0 ng/mL [facility]) Comment: Reference Range Low: <3.4 Borderline: 3.4-5.4 Normal: >5.4 Test Performed at: [employer] JEANNIE [employer] [facility] [place] [place] [address] GRADY CONTRERAS DO,MPH 10/25/2014 10:2 0 AM VETERINARY SURGERY TECHNICIAN 10/25/2014 10:20 AM VETERINARY SURGERY TECHNICIAN Ml A Detportneuf medical centerier [facility] LAB - EMISTRY ORDERABLES Performing Organization Address City/[facility]/ZIP Co de Phone Number [facility]) * FERRITIN (10/25/2014 10:20 AM VETERINARY SURGERY TECHNICIAN) Ferritin 147 10 - 232 ng/mL [facility]) Comment: Test Performed at: [employer] [facility] [place] [address] GRADY CONTRERAS DO,MPH Blood specimen (specimen) BLOOD SPECIMEN / Unknown 10/25/2014 10:20 AM VETERINARY SURGERY TECHNICIAN 10/25/2014 10:20 AM VETERINARY SURGERY TECHNICIAN Ml A Dettendeier [facility] LAB - CH EMISTRY ORDERABLES [facility]) * VITAMIN D 25-HYDROXY D2+D3 BY TANDEM MASS (10/25/2014 10:14 AM VETERINARY SURGERY TECHNICIAN) Pathologist [facility] Vitamin D, 25 Hydroxy Total 61 30 - 100 ng/mL [facility]) Comment: 25-OHD3 indicates both endogenous production and supplementation. 25-OHD2 is an indicator of exogenous sources, such as diet or supplementation. Therapy is based on measurement of Total 25-OHD, with levels <20 ng/mL indicative of Vitamin D deficiency, while levels between 20 ng/mL and 30 ng/mL suggest insufficiency. Optimal levels are > or = 30 ng/mL. Vitamin D, 25 Hydroxy D3 23 See Below ng/mL [facility]) Comment:Reference Range: Not established Vitamin D, 25 Hydroxy D2 38 See Below ng/mL [facility]) Comment: Reference Range: Not established Test Performed at: [email or web address] [address] [address] DEZ FONSECA MD,[facility] Blood specimen (specimen) BLOOD SPECIMEN / Unknown 10/25/2014 10:14 AM VETERINARY SURGERY TECHNICIAN 10/25/2014 10:15 AM VETERINARY SURGERY TECHNICIAN Ml A [facility] LAB - EMISTRY ORDERABLES Performing Organization Address City/[facility] de Phone Number [facility]) * VITAMIN K1 (10/25/2014 10:14 AM VETERINARY SURGERY TECHNICIAN) [facility] Vitamin K 117 80 - 1160 pg/mL [facility]) Comment: Test Performed at: [facility] [address] [address] NATHANIEL GRANADOS MD Blood specimen (specimen) BLOOD SPECIMEN / Unknown 10/25/2014 10:14 AM VETERINARY SURGERY TECHNICIAN 10/25/2014 10:15 AM VETERINARY SURGERY TECHNICIAN Ml A [facility] LAB - EMISTRY ORDERABLES [facility] * VITAMIN A (10/25/2014 10:14 AM VETERINARY SURGERY TECHNICIAN) [facility] Vitamin A 73 38 - 98 mcg/dL [facility]) Comment: Test Performed at: [facility] [facility] NATHANIEL GRANADOS MD Blood specimen (specimen) BLOOD SPECIMEN / Unknown 10/25/2014 10:14 AM VETERINARY SURGERY TECHNICIAN 10/25/2014 10:15 AM VETERINARY SURGERY TECHNICIAN Ml A Saman [facility] LAB - CH EMISTRY ORDERABLES Performing Organization Address [facility]/ZIP Nh de Phone Number [facility]) * VITAMIN E (10/25/2014 10:14 AM VETERINARY SURGERY TECHNICIAN) Alpha-Tocopherol 16.1 5.7 - 19.9 mg/L [facility]) Comment: Levels of alpha-tocopherol <5 mg/L are consistent with Vitamin E deficiency in adults. Beta-Gamma Tocopherol <0.2 <=4.3 mg/L [facility]) Comment: Test Performed at: [employer]/[address] NATHANIEL GRANADOS MD Blood specimen (specimen) BLOOD SPECIMEN / Unknown 10/25/2014 10:14 AM VETERINARY SURGERY TECHNICIAN 10/25/2014 10:15 AM VETERINARY SURGERY TECHNICIAN Ml A Oliviafredrick [facility] LAB - CH EMISTRY ORDERABLES Performing Organization Address [facility] de Phone Number [facility]) * CBC W/O DIFFERENTIAL (10/25/2014 10:10 AM VETERINARY SURGERY TECHNICIAN) WBC 7.1 3.8 - 10.8 Thousand/u L [facility]) RBC 4.96 3.80 - 5.10 Million/uL [facility]) Hemoglobin 14.8 11.7 - 15.5 g/dL [facility]) Hematocrit 44.0 35.0 - 45.0 % [facility]) MCV 88.8 80.0 - 100.0 fL [facility]) MCH 29.8 27.0 - 33.0 pg [facility]) MCHC 33.6 32.0 - 36.0 g/dL [facility]) RDW-CV 13.8 11.0 - 15.0 % [facility]) Platelet 280 140 - 400 Thousand/u L [facility]) Comment: Test Performed at: [employer] [employer] [address] [place] [address] GRADY CONTRERAS DO,MPH Blood specimen (specimen) BLOOD SPECIMEN / Unknown 10/25/2014 10:10 AM VETERINARY SURGERY TECHNICIAN 10/25/2014 10:11 AM VETERINARY SURGERY TECHNICIAN Ml Davison APNP-[employer] POLL[employer] SURVEY WORKER LAB - HE MATOLOGY ORDERABLES [facility]) * LAB HISTORICAL RESULTS-ONBASE (01/15/2010) 01/15/2010 Historical Provider LAB - CHEMISTRY O RDERABLES [facility] Care Teams 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
--- OUTSIDE RECORDS SUMMARY | 2025-01-06 11:43 | XMS_ITS | Referral Summary ---
Author Organization [address] Address [address] [place] [address] Care Team Providers Care Manager Contract Name Role Phone Rod Buckner Primary Care Provider Gail Wyatt MD Unavailable [phone] Encounters Date Type Department Care Team Description 12/13/2024 Documentation [facility] On[facility] [address] [place] [id number] Vero Stokes RN 12/08/2024 Telephone [facility] [address] [facility] [address] [place] [id number] Antony Brennan MD 12/08/2024 11:50 AM SUPERVISOR BINDERY - 12/08/2024 11:59 PM SUPERVISOR BINDERY Hospital Encounter [facility] - Breast Imaging [address] [place] [address] Floor 8 [place] [address] History of bilateral mastectomy Discharge Disposition: Discharge to home or self care 12/08/2024 10:45 AM SUPERVISOR BINDERY Office Visit [facility] Surgery [address] [place] [address] [address] [place] [address] Gail Ramos MD PhD Mass of right chest wall (Primary Dx); Encounter for follow-up surveillance of breast cancer; History of bilateral mastectomy; CHEK2-related breast cancer (HCC); Hx of lymph node excision; History of left breast cancer 12/05/2024 Telephone [facility] Surgery [address] [place] [address] [address] [place] [phone] Elisa Villarreal MD 11/11/[address] [facility] [address] [facility] [address] [place] [address] Shannon Lynn SERAgene 11/08/2024 10:26 AM SUPERVISOR BINDERY - 11/08/2024 11:59 PM SUPERVISOR BINDERY Hospital Encounter [facility] PFT Lab [address] [facility] Floor 1, [address] [place] [phone] Asthma in adult, mild persistent, uncomplicated Discharge Disposition: Discharge to home or self care 11/08/2024 11:30 AM SUPERVISOR BINDERY Office Visit [facility] Pulmonary [address] [facility] Floor 5 [place] [address] Milan Valencia MD Asthma in adult, mild persistent, uncomplicated (Primary Dx); Seasonal allergies; SOB (shortness of breath) from Last 3 Months Allergies Active Allergy Reactions Criticality Noted Date Comments Adhesive Tape-Silicones Rash High 01/28/2017 Allyl Caproate Nausea And Vomiting Low 02/04/2017 Amphetamine Aspartate Unknown Low 06/12/2015 Amphetamine Sulfate Unknown Low 06/12/2015 Aspartame Other (See comments) Medium 06/18/2018 Abdominal pain Abdominal pain Other reaction(s): Other Abdominal pain Abdominal pain Bacitracin Unknown Low 02/11/2019 Other reaction(s): Unknown Other reaction(s): Unknown Other reaction(s): Unknown Povidone-Iodine Unknown Low 09/24/2018 Camphor-Methyl Salicylate-Soap Nausea And Vomiting Low 02/04/2017 [place] Oil Nausea And Vomiting Medium 01/28/2017 Cefuroxime Rash,Other (See comments) Medium 01/28/2017 Cefuroxime Axetil Rash Medium 11/10/2011 [place] Unknown Low Dextroamphetamine Saccharate Palpitations Low 06/12/2015 Dextroamphetamine Sulfate Palpitations Low 06/12/20 15 Dextroamphetamine-Ampheta mine Palpitations,Other (See comments) Medium 01/28/2017 Heart palipations Diphenhydramine Hcl Palpitations Medium 01/28/2017 Ergot Alkaloids Rash Medium 09/09/2018 Gabapentin Mental status changes Medium 01/28/2017 Latex Rash Medium 01/28/2017 Liver Nausea And Vomiting Low 02/04/2017 Macrolide Antibiotics Unknown High 12/14/2008 Meperidine Nausea And Vomiting High 01/28/2017 Metoclopramide Nausea And Vomiting High 01/28/2017 Metronidazole Rash,Other (See comments) High 01/28/2017 Mustard Unknown Low Nalbuphine Rash Medium 06/18/2018 Neomycin Unknown Medium 06/12/2015 Other reaction(s): Unknown Xuypvphx-Dygvckody-Fvwbqm ine Rash Medium 01/28/2017 Nitrate Analogues Unknown Low Nitrofurantoin Rash,Other (See comments) High 01/28/2017 Nystatin Rash High 01/28/2017 Other Unknown,Rash Medium 11/10/2011 Nitrates,organic Oxcarbazepine Hives,Swelling Medium 03/01/2019 Tongue swelling and hives Penicillins Rash,Other (See comments) High 01/28/2017 Pentazocine Nausea And Vomiting High 01/28/2017 Polymycin Other (See comments) Low 06/18/2018 Polymycin eye drops Rosuvastatin Unknown High 11/30/2009 Other reaction(s): Ototoxicity Silver Nitrate Rash High 01/28/2017 Spinach Nausea And Vomiting Low 02/04/2017 [place] Compound Unknown Low Medications nitroglycerin (NITROSTAT) 0.4 mg SL tablet 0.4 mg. 0 0 05/01/20 16 Active furosemide (LASIX) 20 mg tablet Take 3 tablets (60 mg total) by mouth 2 (two) times a day 03/31/20 18 Active glucosamine-chond roitin 250-200 mg tablet 3 (three) times a day Active diphenoxylate-atr opine (LOMOTIL) 2.5-0.025 mg per tabletIndications :diarrhea,PRN Take by mouth every 6 hours. 11/10/20 11 Active multivitamin tabletIndications :Vitamin Deficiency Prevention daily Active L. gasseri-B. bifidum-B longum 1.5 billion cell capsule Take by mouth Active STIOLTO RESPIMAT 2.5-2.5 mcg/actuation mist Inhale 1 puff 2 (two) times a day 5 04/21/20 18 Active acetaminophen (TYLENOL) 325 mg tablet Take 1 tablet (325 mg total) by mouth as needed Active cholecalciferol (VITAMIN D-3) 50,000 unit capsule Take 1,000 Units by mouth once a week Taking 25mcg Active zinc 50 mg tablet Take by mouth. 08/04/20 17 Active tamsulosin (FLOMAX) 0.4 mg extended release capsule Take 1 capsule (0.4 mg total) by mouth nightly Active levothyroxine (SYNTHROID, LEVOTHROID) 175 mcg tablet Take 1 tablet (175 mcg total) by mouth daily Active montelukast (SINGULAIR) 10 mg tablet Take 1 tablet (10 mg total) by mouth Active pravastatin (PRAVACHOL) 40 mg tablet Take 1 tablet (40 mg total) by mouth daily Active fluoride, sodium, 1.1 % gel Apply to teeth. Acti ve cyanocobalamin (Vitamin B-12) 500 mcg tabletIndications :Prevention of Vitamin B12 Deficiency daily Active mupirocin (BACTROBAN) 2 % nasal ointmentIndicatio ns:Methicillin-Re sistant S. Aureus Nasal Colonization Apply 0.5 Applications to each nostril as needed Active desipramine (NOPRAMIN) 10 mg tablet Take 1.5 tablets (15 mg total) by mouth nightly 07/14/20 18 Active dilTIAZem CD/XR/XT (CARDIZEM CD,DILACOR XR) 120 mg 24 hr capsule Take 1 capsule (120 mg total) by mouth daily Active sucralfate (CARAFATE) suspension 1 gram/10 mL TAKE 10 ML BY MOUTH 3 TIMES DAILY 10/18/20 19 Active donepeziL (ARICEPT) 10 mg tablet 07/27/[address] (NexIUM) 40 mg capsule 2 (two) times a day 08/29/20 20 Active albuterol 2.5 mg /3 mL (0.083 %) nebulizer solutionIndicatio ns:Bronchospasm Prevention Use 1 vial via nebulizer 4 times daily as needed. 1080 mL 3 10/02/20 20 Active hyoscyamine (LEVSIN) 0.125 mg SL tablet DISSOLVE 1 TABLET UNDER THE TONGUE EVERY 6 HOURS NEEDED FOR SPASMS 03/01/20 21 Active potassium chloride (KAYCIEL) solution 20 mEq/15 mL 45 mEq 04/15/20 21 Active SUMAtriptan (IMITREX) 6 mg/0.5 mL injection 04/10/20 21 Active furosemide (LASIX) 40 mg tablet 11/05/20 21 Active ergocalciferol (VITAMIN D) 50,000 unit capsule 03/04/20 22 Active Proctosol HC 2.5 % rectal cream 04/14/20 22 Active ipratropium-albut Chan (DUO-NEB) 0.5-2.5 mg/3 mL nebulizer solution USE 1 VIAL VIA NEBULIZER TWICE DAILY NEEDED 02/06/20 22 Active amantadine (SYMMETREL) 100 mg capsule TAKE 1 CAPSULE TWICE A DAY 180 capsule 3 05/09/20 22 Active Lactobacillus acidophilus (PROBIOTIC ORAL) Take by mouth Active albuterol HFA (Ventolin HFA) 90 mcg/actuation inhaler Inhale 2 puffs every 6 (six) hours as needed for wheezing 54 g 3 09/26/20 22 Active exemestane (AROMASIN) 25 mg tablet TAKE 1 TABLET BY MOUTH EVERY DAY 30 tablet 11 11/27/20 22 Active simethicone (GAS-X ORAL) Take by mouth 2 daily Active docosahexaenoic acid/epa (FISH OIL ORAL) Take 1,400 mg by mouth daily Active CALCIUM ACETATE ORAL Take 1,200 mg by mouth Active aspirin 81 mg enteric coated tablet Take 1 tablet (81 mg total) by mouth daily Active calcium carbonate (TUMS ORAL) Take by mouth Takes 2 3 times daily Active diazePAM (VALIUM) 5 mg tablet Take 1 tablet (5 mg total) by mouth every 6 (six) hours as needed for anxiety PRN Active famotidine (PEPCID ORAL) Take by mouth Ac tive acetaminophen-cod eine (TYLENOL with CODEINE #3) 300-30 mg per tablet Take 1 tablet by mouth every 4 (four) hours as needed for pain PRN Active biotin 5 mg tablet Take by mouth Active menthol (HALLS COUGH DROPS MM) Apply to mouth Takes every 2 hours Active meclizine (ANTIVERT) 12.5 mg tablet Take 1 tablet (12.5 mg total) by mouth 3 (three) times a day as needed for dizziness PRN Active cranberry fruit extract (cranberry extract, bulk,) 12:1 powder Take 8,400 mg by mouth 3 (three) times a day Active evening primrose oil 1,300 mg capsule Take 1,300 mg by mouth daily Active losartan (COZAAR) 100 mg tablet Take 1 tablet (100 mg total) by mouth daily 05/26/20 23 Active fluticasone propionate (FLONASE) 50 mcg/actuation nasal spray Administer 2 sprays into each nostril daily 16 g 11 12/16/19 24 Active galcanezumab-gnlm (Emgality Syringe) 120 mg/mL syringe INJECT 120 MG INTO THE SKIN ONCE EVERY 30 DAYS. 1 mL 5 01/07/20 24 Active Nurtec ODT tablet,disintegra tingIndications:I ntractable chronic migraine without aura and with status migrainosus TAKE 1 TABLET (75 MG) BY MOUTH ONSET OF MIGRAINE. DO NOT TAKE MORE THEN 1 TABLET WITHIN 24 HOURS 4 tablet 03/03/20 24 Active fluconazole (DIFLUCAN) 200 mg tablet Take 1 tablet (150 mg total) by mouth as directed Take one tab now. Repeat in 3 days if symptoms persist. 1 tablet 04/01/20 24 Active Emgality Pen 120 mg/mL pen injector INJECT 120MG INTO THE SKIN ONCE EVERY 30 DAYS 1 mL 5 06/03/20 24 Active glatiramer (COPAXONE) 20 mg/mL syringe INJECT 20MG SUBCUTANEOUSLY DAILY 30 mL 5 09/14/20 24 Active methylphenidate ER (METADATE ER) 20 mg CR tabletIndications :Attention-Defici t Hyperactivity Disorder,Hypersom kristi Take 1 tablet (20 mg total) by mouth every morning 30 tablet 09/21/20 24 Active mupirocin (BACTROBAN) 2 % ointment Apply topically daily 09/26/20 24 Active sulfamethoxazole- trimethoprim (BACTRIM DS) 800-160 mg per tablet Take 1 tablet (160 mg of trimethoprim total) by mouth 2 (two) times a day Active pimecrolimus (ELIDEL) 1 % cream Apply topically 2 (two) times a day 10/18/20 24 Active baclofen (LIORESAL) 10 mg tabletIndications :Multiple sclerosis (HCC) Take 3 tablets (30 mg total) by mouth 4 (four) times a day 1080 tablet 3 12/01/19 25 Active budesonide (PULMICORT) 0.5 mg/2 mL nebulizer solution INHALE THE CONTENTS OF 1 VIAL VIA NEBULIZER ONCE DAILY. 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 Tis(DCIS)cN0M0. Stage 0. No markers done. S/p 07/06/2020 jose simple mastectomy/L SLN bx ([facility]HE Roy): left with 8 mm grade 1/3 IDC (1,2,1), no LVI. Margin neg by 5 mm. 3 neg nodes on left. Right with intermediate grade DCIS-no markers done. Malignant neoplasm of upper- outer quadrant of left breast in female, estrogen receptor positive 06/14/2020 Assessment & Plan (09/08/2024 7:26 AM CDT): Diagnosed with invasive ductal carcinoma in left breast in May 2020 based on an abnormal mammogram. Underwent bilateral mastectomy on July 06, 2020 since found to have CHEK 2 mutation. No lymph node involvement. Hormonal therapy recommended, but no radiation or chemotherapy. At risk for other malignancies due to this mutation. Oncology follow-up Assessment & Plan (03/03/2024 4:47 PM CDT): Diagnosed with invasive ductal carcinoma in left breast in May 2020 based on an abnormal mammogram. Underwent bilateral mastectomy on July 06, 2020 since found to have CHEK 2 mutation. No lymph node involvement. Hormonal therapy recommended, but no radiation or chemotherapy. At risk for other malignancies due to this mutation. Follow-up with Dr. Arlin Pruitt Assessment & Plan (03/31/2023 5:52 PM CDT): Diagnosed with invasive ductal carcinoma in left breast in May 2020 based on an abnormal mammogram. Underwent bilateral mastectomy on July 06, 2020 since found to have CHEK 2 mutation. No lymph node involvement. Hormonal therapy recommended, but no radiation or chemotherapy. At risk for other malignancies due to this mutation. Follow-up with Dr. Arlin Pruitt Assessment & Plan (02/13/2021 8:15 AM CDT): Diagnosed with invasive ductal carcinoma in left breast in May 2020 based on an abnormal mammogram. Underwent bilateral mastectomy on July 06, 2020 since found to have CHEK 2 mutation. No lymph node involvement. Hormonal therapy recommended, but no radiation or chemotherapy. At risk for other malignancies due to this mutation. Follow-up with Dr. Arlin Pruitt Assessment & Plan (07/24/2020 5:05 PM CDT): Diagnosed with invasive ductal carcinoma in left breast in May 2020 based on an abnormal mammogram. Underwent bilateral mastectomy on July 06, 2020 since found to have CHEK 2 mutation. No lymph node involvement. Hormonal therapy recommended, but no radiation or chemotherapy. At risk for other malignancies due to this mutation. Follow-up with Dr. 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 Assessment & Plan (03/01/2019 12:11 PM CDT): I had a lengthy discussion Mrs. Pinzon [...] the week, 7 tabs have been taken. Neurogenic bladder 12/22/2018 Overview (07/30/2022): Last Assessment & Plan: Desipramine Tamsulosin Last Assessment & Plan: Desipramine Tamsulosin Assessment & Plan (09/08/2024 7:24 AM CDT): Desipramine 50 mg nightly Tamsulosin 0.4 mg nightly Assessment & Plan (03/03/2024 4:46 PM CDT): Desipramine 50 mg nightly Tamsulosin Assessment & Plan (03/31/2023 5:51 PM CDT): Desipramine Tamsulosin Assessment & Plan (02/13/2021 8:14 AM CDT): Desipramine Tamsulosin Assessment & Plan (07/24/2020 5:01 PM CDT): Desipramine Tamsulosin Assessment & Plan (12/08/2019 10:21 AM SUPERVISOR BINDERY): Desipramine Tamsulosin Assessment & Plan (05/24/2019 7:33 AM CDT): Desipramine Tamsulosin Thyroid nodule 09/24/2018 Spasm of esophagus 09/24/2018 Noncompliance with CPAP treatment 08/20/2018 Thyromegaly 08/18/2018 Polypharmacy 08/18/2018 Papilloma of left breast 07/23/2018 Intractable chronic migraine without aura and with status migrainosus 01/26/2018 Overview (07/30/2022): Last Assessment & Plan: Emgality continuation which [...] subcutaneously as needed. Risks discussed including vasoconstriction. Assessment & Plan (09/08/2024 7:24 AM CDT): Emgality 120 mg monthly highly effective. Off Botox since November 2019 Try Nurtec 75 mg as needed. If Nurtec effective, will discontinue sumatriptan 6 mg subcutaneously as needed. Risks of sumatriptan discussed including vasoconstriction. Assessment & Plan (03/03/2024 4:46 PM CDT): Emgality 120 mg monthly highly effective. Off Botox since November 2019 Nurtec 75 mg as needed. Risks discussed. If Nurtec effective, will discontinue sumatriptan 6 mg subcutaneously as needed. Risks discussed including vasoconstriction. Assessment & Plan (03/31/2023 5:51 PM CDT): Emgality 120 mg monthly highly effective. Off Botox since November 2019 Will try Nurtec 75 mg as needed. Risks discussed. If Nurtec effective, will discontinue sumatriptan 6 mg subcutaneously as needed. Risks discussed including vasoconstriction. Assessment & Plan (02/13/2021 8:14 AM CDT): Emgality continuation which has been helping Off Botox since November 2019 Will try Nurtec. Risks discussed. If Nurtec effective, will discontinue sumatriptan 6 mg subcutaneously as needed. Risks discussed including vasoconstriction. Assessment & Plan (07/24/2020 5:01 PM CDT): Emgality continuation which has been helping Off Botox since November 2019 Sumatriptan 6 mg subcutaneously as needed. Risks discussed including vaso constriction. Ubrelvy discussed. Assessment & Plan (12/08/2019 10:20 AM SUPERVISOR BINDERY): Continue Emgality monthly Continue Botox Should not take Imitrex injections due to risks Tylenol #3 only as needed Assessment & Plan (05/24/2019 7:32 AM CDT): Emgality continuation which has been helping Continue Botox injections Discontinue sumatriptan injections due to vasoconstriction risks. Tylenol #3 every 6 hours as needed. Assessment & Plan (02/22/2019 1:29 PM CDT): She has tried many prophylatic migraine medications in the past. She has an extensive medication list. She is on Botox without complete relief and still having burdensome, life altering headaches. Discussed Emgality 120mg monthly including injection site reactions. She was given her loading dose today of 240mg and the order for 120mg once monthly was sent to her pharmacy. Can continue Imitrex prn as prescribed for abortive therapy. Limit caffeine use Sleep hygiene discussed Nutrition and exercise discussed and encouraged Vertigo 04/07/2016 Overview (07/30/2022): Vertigo Vertigo Obstructive sleep apnea 08/24/2015 Overview (03/06/2017): Obstructive sleep apnea hypopnea, severe Assessment & Plan (09/21/2024 10:20 AM CDT): Cont the positional treatment for now. Her HST in january was mild at 5.6 or so but limited test, can't tolerate the cpap so will cont with her current setup that she is happy with currently. Anxiety and depression 08/24/2015 Overview (03/06/2017): Anxiety and depression Assessment & Plan (12/08/2019 10:36 AM SUPERVISOR BINDERY): Continue following with Dr. Oviedo Asthma 08/24/2015 Overview (03/06/2017): Asthma Chronic sinusitis 08/24/2015 Overview (07/30/2022): Chronic rhinosinusitis Overview: Chronic rhinosinusitis Chronic rhinosinusitis Hypersomnia 08/24/2015 Overview (07/30/2022): Hypersomnia due to medical condition Hypersomnia due to medical condition Assessment & Plan (09/21/2024 10:21 AM CDT): Refill the Metatdate ER 20mg once daily Refill 10mg ritalin 1/2 tab 1-2 times a day as needed. No issues or concerns for overuse, is judicious with her usage etc. Gastroesophageal reflux disease without esophagi tis 04/21/2014 Pure hypercholesterolemia 09/11/2011 Atherosclerotic heart diseas e of [place] coronary artery without angina pectoris 09/10/2011 Edema 09/10/2011 Essential (primary) hypertension 09/10/2011 Heart failure, unspecified ([facility]) 09/10/2011 Multiple sclerosis ([facility]) 12/07/2008 Assessment & Plan (09/21/2024 10:28 AM CDT): Cont the injections as she is doing. No changes. Overall she is happy with her current plan of care, travel to our office etc. Assessment & Plan (09/08/2024 7:23 AM CDT): On glatiramer acetate 20 mg daily subcutaneous injections. Prefers to continue her daily injection regimen rather than switching the thrice weekly. Last COVID-19 vaccine August 10 2024 Baclofen 30 mg 4 times a day. Amantadine 100 mg twice a day. Methylphenidate ER 20 mg as needed. No benefit from Provigil. On vitamin D2 50,000 IU daily Patient strongly desires to continue donepezil which she reports helped her memory; recommended a trial off of donepezil to see if her diarrhea improved. Apparently she has had formal neuropsychological testing in the past. MRI of the brain and cervical spine ordered again. Importance of MRI imaging to look for subclinical activity was discussed. Patient has been non adherent MRI imaging. She did go to [facility] in the past, but left when she could not be put under general anesthesia. Last MRI brain and cervical spine September 11, 2017. Assessment & Plan (03/03/2024 4:45 PM CDT): On glatiramer acetate 20 mg daily subcutaneous injections. Prefers to continue her daily injection regimen rather than switching the thrice weekly. Her last COVID-19 vaccine was fall 2022. Baclofen 30 mg 4 times a day. Methylphenidate 10 mg twice a day as needed and amantadine 100 mg twice a day for fatigue. No benefit from Provigil. On vitamin D2 50,000 IU daily Patient strongly desires to continue donepezil which she reports helped her memory; recommended a trial off of donepezil to see if her diarrhea improved. Apparently she has had formal neuropsychological testing in the past. MRI of the brain and cervical spine ordered. Importance of MRI imaging to look for subclinical activity was discussed. Assessment & Plan (03/31/2023 5:47 PM CDT): On glatiramer acetate 20 mg daily subcutaneous injections. Prefers to continue her daily injection regimen rather than switching the thrice weekly. Due to breakthrough relapses, alternative treatment options were discussed with patient but she has very risk aversive. Since COVID-19 pandemic and history of breast cancer, continuing glatiramer acetate seems reasonable. She states her last COVID-19 vaccine was in 2021 Baclofen 30 mg 4 times a day. She understands she is on a high dose, but she has been on this regimen long-term. Methylphenidate 10 mg twice a day and amantadine 100 mg twice a day for fatigue. No benefit from Provigil. On vitamin D2 50,000 IU daily Patient strongly desires to continue Aricept which she reports helped her memory although Alzheimer's seems unlikely. Apparently she has had formal neuropsychological testing in the past. Patient states that she completed MRI imaging at an [facility] in September 2022 but I have not received her report. Will follow-up. Importance of MRI imaging to look for subclinical activity was discussed. Assessment & Plan (02/13/2021 8:13 AM CDT): On glatiramer acetate 20 mg daily subcutaneous injections. Prefers to continue her daily injection regimen rather than switching the thrice weekly. Due to breakthrough relapses, alternative treatment options were discussed with patient but she has very risk aversive. Since COVID-19 pandemic and newly diagnosed with breast cancer, continuing glatiramer acetate seems reasonable. She received her 1st [employer] COVID-19 vaccine on January 29, 2021. Baclofen [...] to look for subclinical activity was discussed. Assessment & Plan (07/24/2020 4:59 PM CDT): On glatiramer acetate 20 mg daily subcutaneous injections. Prefers to continue her daily injection regimen rather than switching the thrice weekly. Due to breakthrough relapses, alternative treatment options were discussed with patient but she has very risk aversive. Since COVID-19 pandemic and newly diagnosed with breast cancer, continuing glatiramer acetate seems reasonable. Baclofen 30 mg 4 times a day. She understands she is on higher dose than recommended, but she has been on this regimen long-term. Ritalin and amantadine for fatigue. Patient understands there is increased risk of myocardial infarction and stroke on amphetamines, but had no benefit from Provigil. On vitamin D2 50,000 IU daily Discontinue Aricept Patient overdue for MRI scan of her brain and cervical spine. She would like to recover further from double mastectomy and reconstruction surgery before proceeding with imaging. She did not complete MRI imaging as ordered in April 2019. Importance of MRI imaging to look for subclinical activity was discussed. Assessment & Plan (12/08/2019 10:31 AM SUPERVISOR BINDERY): Discussed the option of oral medication due to lipoatrophy. I told her she should not inject in those areas and that the medication maybe less effective is she is injecting in non-approved sites. Patient declines talk of oral medication options. Continue Copaxone 20mg daily per patient preference Continue exercise Discussed weight loss and nutrition. Will also provide her with Toya Valladares SNIPPER phone number Follow up with Dr. Brennan in 6 months Assessment & Plan (05/24/2019 7:37 AM CDT): On glatiramer acetate 20 mg daily subcutaneous [...] vitamin D2 50,000 IU daily Discontinue Aricept Assessment & Plan (02/22/2019 1:20 PM CDT): We had a very long discussion regarding MS, relapses and medication options. The role of DMT's as prevention to stop relapses, new lesions and disability progression. We talked about other therapies that are more effective than Copaxone including Tysabri and Ocrevus. She is risk adversive to switching therapy at this time even after education. Continue daily Copaxone 20mg for now. Baclofen 30mg TID for spasms Start oxcarbazepine 150mg BID for one week and then can increase to 300mg BID after that for esophageal spasms and facial pain. BMP in 2 weeks after starting medication. Discussed risks including fatigue, dizziness, constipation, dry mouth. We had a long discussion regarding exercise, nutrition and her part in keeping her health, MS and symptoms under control. I recommended 30 mins of exercise daily. Follow up in 6 months or sooner if needed Resolved Problems Problem Noted Date Diagnosed Date Resolved Date Osteopenia of multiple sites 10/14/2023 02/05/2024 History of left breast cancer 03/14/2021 02/05/2024 Malignant neoplasm of upper- outer quadrant of left breast in female, estrogen receptor positive 06/12/2020 03/31/2023 Overview (07/30/2022): Left, upper outer, grade 1/3 IDC. T1bN0(i-)M0, [...] this mutation. Follow-up with Dr. Arlin Pruitt Functional diarrhea 01/11/2020 02/05/20 24 Increased risk of breast cancer 11/11/2019 02/05/2024 History of colon polyps 11/10/2019 03/0 06/2024 Dysphagia 11/10/2019 02/05/2024 Cardiac angina (CMS/HCC) 11/10/201906/2024 Intolerance of continuous po sitive airway pressure (CPAP) ventilation 11/10/2019 02/05/2024 Adult BMI 38.0-38.9 kg/sq m 11/10/2019 02/05/2024 Elevated blood pressure reading 11/10/2019 02/05/2024 Osteopenia 03/01/2019 02/05/2024 Overview (07/30/2022): Last Assessment & Plan: DEXA requested Adequate Ca and vitamin D intake was discussed. Assessment & Plan (03/01/2019 12:12 PM CDT): DEXA requested Adequate Ca and vitamin D intake was discussed. Vitamin D deficiency 03/01/2019 024 Overview (07/30/2022): Last Assessment & Plan: Check 25 OH vit D Adjust dose of Ergocalciferol accordingly Last Assessment & Plan: Check 25 OH vit D Adjust dose of Ergocalciferol accordingly Assessment & Plan (03/01/2019 12:12 PM CDT): Check 25 OH vit D Adjust dose of Ergocalciferol accordingly Abdominal cramping 02/22/2019 4 Other acute recurrent sinusitis 02/04/2019 02/05/2024 Skin abrasion 09/29/2018 02/05/2024 Hormone replacement therapy 09/29/2018 02/05/2024 Urinary retention 08/18/2018 02/05/2024 Peripheral edema 08/18/2018 02/05/2024 Emotional lability 08/18/2018 0 Muscle spasm 07/23/2018 07/24/2020 Facial pain, atypical 05/19/20182023 Encounter for long-term (cur rent) use of antibiotics 11/17/2017 02/05/2024 Class 2 obesity due to exces s calories with serious comorbidity and body mass index (BMI) of 39.0 to 39.9 in adult 09/15/2017 02/05/2024 Acute recurrent maxillary sinusitis 09/15/2017 02/05/2024 Migraine without aura, not i ntractable, without status migrainosus 07/24/2017 12/22/2018 Abnormal vision 04/07/2016 02/05/2024 Overview (05/23/2021): Vision abnormality Vision abnormality Vision abnormality Fatigue 10/23/2015 02/05/2024 Overview (07/30/2022): Other fatigue Other fatigue Persistent insomnia 08/24/2015 02/05/20 Overview (07/30/2022): Persistent disorder of initiating or maintaining sleep Persistent disorder of initiating or maintaining sleep Treatment given 08/24/2015 02/05/2024 Overview (03/06/2017): Insufficient treatment with nasal CPAP Hypersomnia 08/24/2015 02/05/2024 Overview (03/06/2017): Hypersomnia due to medical condition Repetitive intrusions of sleep 08/24/2015 02/05/2024 Overview (03/06/2017): Repetitive intrusions of sleep H/O: heart disorder 08/24/2015 02/05/20 24 Overview (03/06/2017): Hx of congestive heart failure Posttraumatic stress disorder 08/24/2015 02/05/2024 Overview (07/30/2022): PTSD (post-traumatic stress disorder) Anxiety and depression Last Assessment & Plan: Continue following with Dr. Oviedo PTSD (post-traumatic stress disorder) Impaired cognition 12/15/2014 9 Overview (03/06/2017): Cognitive dysfunction Abnormal gait 05/22/2014 12/22/2018 Overview (03/06/2017): Gait disturbance Migraine 01/30/2014 12/22/2018 Overview (03/05/2017): Migraines Unknown and unspecified causes of morbidity 01/30/2014 02/05/2024 Overview (07/30/2022): Overview: Migraines Tobacco dependence syndrome 09/11/2011 02/05/2024 Edema 09/11/2011 02/05/2024 Microvascular angina 09/11/2011 024 SOB (shortness of breath) Immunizations Name Administration Dates Next Due H1N1 All Forms 08/30/2013 Hep B Vaccine 03/12/1998,01/15/1998 Influenza LAIV (Nasal) 09/07/2019,09/23/2017,04/2015 Influenza, Quadrivalent, Hig h Dose, Preservative Free, Intrr 08/26/2019,08/28/2018 Influenza, Quadrivalent, Spl it, Intramuscular 09/07/2019,09/23/2017,09/04/2015 Influenza, Quadrivalent, Spl it, Preservative Free, Intramuscular 08/20/2020 Influenza, Trivalent, High D ose, Split, Preservative Free, Intramuscular 08/26/2019,08/28/2018 Influenza, Trivalent, Preser vative Free, Intramuscular 11/07/2013 Influenza, Unspecified 09/20/2021,10/13/2014 Pfizer SARS-CoV-2 Monovalent Vaccination (12+ Yrs) PURPLE 09/20/2021,02/26/2021,01/29/2021 Pneumococcal Conjugate PCV 13 09/09/2019, 018,07/25/2015 Pneumococcal Conjugate Pcv20 08/22/2022 Pneumococcal Polysaccharide PPV23 2018,11/09/2012,06/07/2007,06/21 RSV Vaccine, Pref, Recombina nt, Subunit, Adjuvanted, PF, IM (Arexvy) 09/15/2023 RSV, Bivalent, Protein Subun it Rsvpref, Diluent (Abrysvo) 09/15/2023 Td, Not Adsorbed 03/12/2006 Td, Unspecified 03/12/2006 Tdap 11/09/2012,10/30/2012 ZOSTER LIVE 09/09/2013 Social History Tobacco Use Types Packs/Day Years Used Date Smoking Tobacco: Former Cigarettes 1.5 20 0 05/23/1971 - 05/23/1991 Smokeless Tobacco: Former Tobacco Cessation:Counseling Given: Not Answered Alcohol Use Standard Drinks/Week Comments No 0 (1 standard drink = 0.6 oz pur e alcohol) AUDIT-C Answer Date Recorded Frequency of Alcohol Consumption Not on file 04/01/2024 Q2: How many drinks containi ng alcohol do you have on a typical day when you are drinking? Patient does not drink Frequency of Binge Drinking Not on file 01/2024 PHQ-2 Answer Date Recorded PHQ-2 Score 0 07/22/2019 Comments Unknown Sex and Gender Information Value Date Recorded Sex Assigned at Not on file Legal Sex Female 7:38 PM SUPERVISOR BINDERY Gender Identity Female 06/29/2020 2:02 PM CDT Sexual Orientation Not on file Last Filed Vital Signs Vital Sign Reading Time Taken Comments Blood Pressure 144/78 12/08/2024 11:14 AM SUPERVISOR BINDERY Pulse 90 12/08/2024 11:14 AM SUPERVISOR BINDERY Temperature 36.6 C (97.9 F) 12/08/2024 11:14 AM SUPERVISOR BINDERY Respiratory Rate 20 12/08/2024 11:1 4 AM SUPERVISOR BINDERY Oxygen Saturation 96% 12/08/2024 11: 14 AM SUPERVISOR BINDERY Inhaled Oxygen Concentration - - Weight 108.2 kg (238 lb 9.6 oz) 025 11:14 AM SUPERVISOR BINDERY Height 160 cm (5' 3 ) 12/08/2024 11:14 AM SUPERVISOR BINDERY Body Mass Index 42.27 12/08/2024 11:14 AM SUPERVISOR BINDERY Plan of Treatment Not on file Procedures Procedure Name Priority Date/Time Associated Diagnosis Comments US CHEST BREAST RELATED Schedule Routine, Read Routine (OP Routine) 12/08/2024 12:36 PM SUPERVISOR BINDERY History of bilateral mastectomy PULMONARY FUNCTION TEST (PFT) Routine 11/08/2024 11:14 AM SUPERVISOR BINDERY Asthma in adult, mild persistent, uncomplicated DEXA AXIAL SKELETON BONE DENSITY 1 OR MORE SITES Schedule Routine, Read Routine (OP Routine) 05/25/2023 10:54 AM CDT Malignant neoplasm of upper-outer quadrant of left breast in female, estrogen receptor positive (HCC) 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 OVERALL FINAL ASSESSMENT: BI-RADS Category 1: Negative. RECOMMENDATION: Continued clinical follow-up is recommended. Appropriate clinical management is recommended. Negative imaging does not negate the need of a biopsy if high clinical suspicion exists, and a biopsy under palpation may be performed. Electronically signed by: Rivka Rizo M.D. Narrative 12/08/2024 12:37 PM SUPERVISOR BINDERY EXAMINATION: US CHEST BREAST RELATED HISTORY: 64-year-old female status post mastectomy with the right chest wall lump. COMPARISON: None TECHNIQUE: Directed ultrasound evaluation of the RIGHT breast was performed by a credit reporting clerk. ULTRASOUND FINDINGS: Area of palpable concern, in the right chest wall, there is no suspicious cystic or solid mass. Procedure Note Rivka Rizo MD - 12/08/2024 EXAMINATION: US CHEST BREAST RELATED HISTORY: 64-year-old female status post mastectomy with the right chest wall lump. COMPARISON: None TECHNIQUE: Directed ultrasound evaluation of the RIGHT breast was performed by a credit reporting clerk. ULTRASOUND FINDINGS: Area of palpable concern, in the right chest wall, there is no suspicious cystic or solid mass. IMPRESSION: No suspicious abnormality in the area of palpable concern. OVERALL FINAL ASSESSMENT: BI-RADS Category 1: Negative. RECOMMENDATION: Continued clinical follow-up is recommended. Appropriate clinical management is recommended. Negative imaging does not negate the need of a biopsy if high clinical suspicion exists, and a biopsy under palpation may be performed. Electronically signed by: Rivka Rizo M.D. Gail Ramos MD PhD IMG MAMMO PROCEDURES Final Result * Pulmonary Function Test - (11/08/2024 11:14 AM SUPERVISOR BINDERY) FVC PRE 2.50 L [facility] FVC %PRE PRED 90 % [facility] FEV1 PRE 1.98 L [facility] FEV1 %PRE PRED 91 % [facility] FEV1/FVC PRE 79.0 % [facility] Anatomical Region Laterality Modality PFT 11/08/2024 10:2 9 AM SUPERVISOR BINDERY Narrative 11/08/2024 1:44 PM SUPERVISOR BINDERY Table formatting from the original result was not included. [facility] Division of Pulmonary & Critical Care Medicine [address] [place] [address]; [address]; [place] [address]; [phone] Pulmonary Function Laboratory Pulmonary Stress Test Simple/Oxygen Assessment Patient: Eugenia Pinzon Date: 11/08/2024 : 1960 Ht: 62 IN Wt: 249 LBS Time (min) Distance (ft)/ Patricio O2 L/M SpO2 HR Damion* BP FEV1 % Pred Rest: RA 97 81 2 149/79 1.98 91 % Walk/Bike: 1 RA 95 87 3 2 RA 96 93 4 3 RA 96 100 4 4 RA 96 97 5 5 RA 97 97 6 6 min 0 sec RA 96 97 7 Recovery: 1 RA 98 89 6 126/78 1.97 90% 3 RA 97 88 4 *Damion rate of perceived exertion (1-10 dyspnea scale) Talib, CHEST 2003; 123:1408 Walk Test Summary: Six Minute Walk Distance: 512 ft Six-minute Walk Work [distance (m) x body wt (kg)]: 94317 kg.m (normal >60,000kg.m) Oxygen required to maintain SpO2 greater than 90% during six minutes of walkin L/M Comments: O2A- 0 STOPS- USED WALKER. Interpretation: Breathing room air, SpO2 is normal at rest and during exercise sufficient to increase pulse, SpO2 is stable. On this basis, SpO2 is adequate at rest breathing room air and while walking breathing room air. This level of exercise is associated with no significant change of FEV1. By signing this report, the attending pulmonary physician certifies that he/she has personally reviewed and interpreted the graphic and numerical data associated with this pulmonary function study and has reviewed and /or edited a preliminary draft report and agrees with the written final report. PFT performed at:->[facility] Adult PFT Lab- [email or web address] Procedure:->Spirometry Procedure:->Oxygen Assessment Titration Pulmonary Function Test Interpretation SPIROMETRY: Spirometry is normal. The flow volume loop is normal. Impression: There is no ventilatory defect. Compared with most recent study, there has been no significant interval change. The attending pulmonary physician certifies a physician presence in the [facility] during the administration of aerosolized bronchodilator. The attending pulmonary physician certifies that he/she has reviewed and interpreted the graphic and numerical data of this pulmonary function study and agrees with the written final report. The lower limit of normal for PaO2 and %HbO2 is age dependent. However, the [facility] Pulmonary Function Laboratory defines hypoxemia as a PaO2 <56 mm Hg or a %HbO2 <89%. us Cheyanne Davis SNIPPER PFT ORDERABLES Final Result * Dexa Axial Skeleton Bone Density 1 or 2 Site (05/25/2023 10:54 AM CDT) Anatomical Region Laterality Modality Body N/A Radiographic Ynes ging Narrative 05/27/2023 3:40 PM CDT Patient Name: Eugenia Pinzon Date of : 1960 Date of scan: 05/25/2023 Bone mineral density was performed on a Holocastaclip Discovery Densitometer. Based on machine cross-calibration and precision studies the least significant changes of this densitometer is 0.024 g/cm2 at the spine, 0.020 g/cm2 at the total proximal femur, and 0.014g/cm2 at the forearm. HISTORY: This is a 62 y.o. postmenopausal female with a history of asthma, breast cancer, low bone mass, thyroid disease, and vitamin D deficiency. She reports that she quit smoking about 32 years ago. Her smoking use included cigarettes. She has a 30.00 pack-year smoking history. She has quit using smokeless tobacco. Currently on treatment with calcium, vitamin D, and thyroid hormone, previously treated with anti-seizure medications and hormone replacement therapy, and current complaint of arm pain, back pain, neck pain, and leg pain. INDICATIONS: Menopause status, vitamin D deficiency, and history of low bone mass. FINDINGS: BONE MINERAL DENSITY OF THE LUMBAR SPINE Bone Mineral Density (BMD) of the lumbar spine was measured from L1-L4 and the average density was calculated to be 0.778 gm/cm2. This corresponds to a T-score (standard deviations from the mean of young adults) of -2.4. When compared to the previous study of 05/22/2021 there has been a -0.053 gm/cm (-6.3%) decrease in bone density that is considered significant. BONE MINERAL DENSITY OF THE PROXIMAL FEMUR Bone Mineral Density (BMD) of the left hip total was found to be 0.786 gm/cm2. This corresponds to a T-score standard deviations from the mean of young adults of -1.3. Femoral neck is 0.551 gm/cm2 with a T-score (standard deviations from the mean of young adults) of -2.7. When compared to the previous study of 05/22/2021 there has been a -0.058 gm/cm (-6.9%) decrease in bone density that is considered significant. SUMMARY: Bone mineral density shows evidence of osteoporosis and marked increase risk of fracture. There has been a significant decrease in bone density since previous measurement. ADDITIONAL COMMENTS: Postmenopausal Women and Men Over 50: Diagnostic criteria: Osteoporosis: BMD at or below -2.5 T-score; Osteopenia (low bone mass): BMD between -1.0 and -2.5 T-score. If the patient has a history of a fragility fracture, a fracture that occurred with trauma equivalent to a fall from a standing position or less, then the diagnosis is osteoporosis regardless of bone density. The history and data sections of the bone mineral density scan were prepared by Dayanna Ahn(Dipti)(M)(BD) CBDT who is accredited by the International Society of Clinical Densitometry. The overall patient assessment and scan interpretation were performed by Anibal Blank MD who is certified by the International Society of Clinical Densitometry. [id number] Gail Wyatt MD IM DXA PROCEDURES F inal Result * Hepatitis panel, acute (12/22/2018 1:58 PM SUPERVISOR BINDERY) Hep A IgM NON-REACTIVE NON-REAC TIVE [facility] [place] Comment [facility] [place] Comment: WE RECEIVED YOUR HANDWRITTEN TEST ORDER AND PERFORMED AN ACUTE HEPATITIS PANEL. IF THIS IS NOT WHAT YOU INTENDED TO ORDER, PLEASE CONTACT YOUR LOCAL STRAIGHT KNIFE MACHINE CUTTER IMMEDIATELY SO THAT WE CAN ADJUST OUR BILLING APPROPRIATELY. YOU MAY ALSO INQUIRE ABOUT ALTERNATIVE OR ADDITIONAL TESTING. HepBsAg NON-REACTIVE NON-REAC TIVE [facility] [place] HBV Surface ag, confirm CANCELED [facility] [place] Comment:Result canceled by t he ancillary Comment [facility] [place] Comment: WE RECEIVED YOUR HANDWRITTEN TEST ORDER AND PERFORMED AN ACUTE HEPATITIS PANEL. IF THIS IS NOT WHAT YOU INTENDED TO ORDER, PLEASE CONTACT YOUR LOCAL STRAIGHT KNIFE MACHINE CUTTER IMMEDIATELY SO THAT WE CAN ADJUST OUR BILLING APPROPRIATELY. YOU MAY ALSO INQUIRE ABOUT ALTERNATIVE OR ADDITIONAL TESTING. Hep B core IgM NON-REACTIVE NON-REAC TIVE [facility] [place] [facility] [place]: WE RECEIVED YOUR HANDWRITTEN TEST ORDER AND PERFORMED AN ACUTE HEPATITIS PANEL. IF THIS IS NOT WHAT YOU INTENDED TO ORDER, PLEASE CONTACT YOUR LOCAL STRAIGHT KNIFE MACHINE CUTTER IMMEDIATELY SO THAT WE CAN ADJUST OUR BILLING APPROPRIATELY. YOU MAY ALSO INQUIRE ABOUT ALTERNATIVE OR ADDITIONAL TESTING. Hep C Ab NON-REACTIVE NON-REAC TIVE [facility] [place] SIGNAL TO CUT-OFF 0.01 <1.00 [facility] [place] [facility] [place] Comment: WE RECEIVED YOUR HANDWRITTEN TEST ORDER AND PERFORMED AN ACUTE HEPATITIS PANEL. IF THIS IS NOT WHAT YOU INTENDED TO ORDER, PLEASE CONTACT YOUR LOCAL STRAIGHT KNIFE MACHINE CUTTER IMMEDIATELY SO THAT WE CAN ADJUST OUR BILLING APPROPRIATELY. YOU MAY ALSO INQUIRE ABOUT ALTERNATIVE OR ADDITIONAL TESTING. 12/22/2018 1:58 PM SUPERVISOR BINDERY 12/22/2018 2:01 PM SUPERVISOR BINDERY Narrative Resulting Agency Comment Performing Organization Information: Site ID: [id number] Name: [facility] Address: [address] [address] Director: Amandeep Suárez D.O., MPH Antony Brennan MD LAB MICROBIOLOGY - GENERAL OR DERABLES Final Result Performing Organization Address City/State/[facility] Co de Phone Number [facility] [facility] [place] from Last 3 Months or Most Recently Relevant to Health Maintenance Insurance MEDICARE SOLUTIONS MEDICARE SOLUTIONS Care Teams Manager Contract Relationship Specialty Start Date End Date Rod Buckner PA [address] [place] [address] PCP - General Physician Benefits Assistant 02/15/19 Gail Wyatt MD [address] [place] [address] Medical Oncologist/Apprentice Jockey Medical Oncology 07/23/22
--- OUTSIDE RECORDS SUMMARY | 2025-01-06 11:43 | XMS_ITS | Encounter Summary ---
Author Organization [facility] Address [address] [place] [address] Care Team Providers Care Director Targeted Marketing Name Role Phone Rod Buckner PA-C Primary Care Provide r Encounter Details Date Type Department Care Team (Latest Contact Info) Description 07/12/2008 Outpatient Historical [facility] Stella Rutherford, PhD Dept. 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
--- OUTSIDE RECORDS SUMMARY | 2025-01-06 11:43 | XMS_ITS | Encounter Summary ---
Author Organization [facility] Address [address] [place] [address] Care Team Providers Care Hospice Administrator Name Role Phone Rod Buckner PA-C Primary Care Provide r Zuly Miller MD Unavailable [phone] Encounter Details Date Type Department Care Team (Late st Contact Info) Description 05/22/2022 Patient Outreach [facility] [address] [place] [id number] Shanice Hernandez, RN Social History Tobacco Use Types Packs/Day Years Used Date Smoking Tobacco: Former Cigarettes 4 20 0 11/30/1970 - 11/30/1990 Smokeless Tobacco: Never Alcohol Use Standard Drinks/Week Comments No 0 (1 standard drink = 0.6 oz pur e alcohol) AUDIT-C Answer Date Recorded Q1: How often do you have a drink containing alc ohol? Never 10/08/2020 Average Number of Drinks Not on file 020 Q3: How often do you have si x or more drinks on one occasion? Never 10/08/2020 Overall Financial Resource Strain (CARDIA) Answe r [...] on file documented as of this encounter Functional Status Functional Status Response Date of Assess ment Is person deaf or have serious hearing difficult y? No 05/21/2022 Is person blind or have serious difficulty seein g? No 05/21/2022 Does person have serious dif ficulty walking/climbing stairs? No 05/21/2022 Does person have difficulty dressing/bathing? No 05/21/2022 Does person have difficulty doing errands alone? No 05/21/2022 Cognitive Status Response Date of Assessm ent Does person have difficulty concentrating/remembering/making decisions? No 05/21/2022 documented as of this encounter Plan of Treatment Upcoming Encounters Date Type Department Care Team (Late st Contact Info) Description 02/08/2025 10:30 AM CDT Office Visit [facility] - GI [address] [facility] [place] [phone] Isai Leon MD [address] [place] [phone] 08/21/2025 11:30 AM CDT Office Visit [facility] - General Surgery [address] [place] [address] Bebe Faulkner MD [address] [facility] [address] [place] [address] documented as of this encounter Goals Goal Patient Goal Type Associated Problems Recent Progress Patient-Stated? Author Safety General On track( 024 2:13 PM MUSIC ASSISTANT) No Ml Livingston, RN Note: Expected end date: Ongoing Interventions: Your nurse will assess your risk for falls/injury each visit Use appropriate and safe transfer methods Medication Management General On track( 024 2:13 PM MUSIC ASSISTANT) Ml Serra, RN Note: Expected end date: Ongoing Interventions: Take all medications as prescribed Let your doctor know right away about any changes in your medications documented as of this encounter Visit Diagnoses Not on filedocumented in this encounter Care Teams Hospice Administrator Relationship Specialty Start Date End Date Rod Buckner PA-C [address] [facility] [address] [place] [address] PCP - General 02/18/19 Zuly Miller MD [address] [facility] [address] [place] [address] Hematology and Oncology 02/17/24 documented as of this encounter
--- OUTSIDE RECORDS SUMMARY | 2025-01-06 11:43 | XMS_ITS | Encounter Summary ---
Author Organization [employer] Address [address] [place] [address] Care Team Providers Care Kids Club Attendant Name Role Phone Rod Buckner PA-C Primary Care Provide r Encounter Details Date Type Department Care Team (Late st Contact Info) Description 08/06/2004 Outpatient Historical Division of Neurology [address] [address] Armida Mendez MD [address] [facility] [address] [place] [address] Social History Tobacco Use Types Packs/Day Years Used Date Smoking Tobacco: Never Assessed Comments Unknown Sex and Gender Information Value Date Recorded Sex Assigned at Not on file Legal Sex Female 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
--- OUTSIDE RECORDS SUMMARY | 2025-01-06 11:43 | XMS_ITS | Encounter Summary ---
Author Organization [employer] Address [address] [place] [address] Care Team Providers Care Controlled Atmospheric Furnace Brazer Name Role Phone Rod Buckner PA-C Primary Care Provide r Encounter Details Date Type Department Care Team (Late st Contact Info) Description 09/27/2007 Outpatient Historical [facility] [address] [facility] [address] [address] Armida Mendez MD [address] [place] [address] Social History Tobacco Use Types Packs/Day Years Used Date Smoking Tobacco: Never Assessed Comments Unknown Sex and Gender Information Value Date Recorded Sex Assigned at Not on file Legal Sex Female 5:09 AM SPORTS MEDICINE TRAINER Gender Identity Not on file Sexual Orientation Not on file documented as of this encounter Plan of Treatment Not on file documented as of this encounter Visit Diagnoses Not on filedocumented in this encounter Care Teams Controlled Atmospheric Furnace Brazer Relationship Specialty Start Date End Date Rod Buckner PA-C PCP - General Physician Organ Pipe Voicer 10/05/20 documented as of this encounter
--- OUTSIDE RECORDS SUMMARY | 2025-01-06 11:43 | XMS_ITS | Encounter Summary ---
Author Organization [employer] Address [address] [place] [address] Care Team Providers Care Particle Board Supervisor Name Role Phone Rod Buckner PA-C Primary Care Provide r Encounter Details Date Type Department Care Team (Late st Contact Info) Description 08/22/2005 Outpatient Historical Division of Neurology [address] [address] Armida Mendez MD [address] [facility] [address] [place] [address] Social History Tobacco Use Types Packs/Day Years Used Date Smoking Tobacco: Never Assessed Comments Unknown Sex and Gender Information Value Date Recorded Sex Assigned at Not on file Legal Sex Female 5:09 AM COMMERCIAL COORDINATOR Gender Identity Not on file Sexual Orientation Not on file documented as of this encounter Plan of Treatment Not on file documented as of this encounter Visit Diagnoses Not on filedocumented in this encounter Care Teams Particle Board Supervisor Relationship Specialty Start Date End Date Rod Buckner PA-C PCP - General Physician Continuous Dryout Operator Helper 10/05/20 documented as of this encounter
--- OUTSIDE RECORDS SUMMARY | 2025-01-06 11:43 | XMS_ITS | Encounter Summary ---
Author Organization [employer] Address [address] [place] [address] Care Team Providers Care Basket Hand Weaver Name Role Phone Rod Buckner PA-C Primary Care Provide r Encounter Details Date Type Department Care Team (Late st Contact Info) Description 07/31/2004 Outpatient Historical [facility] DEPT Charlette De La Vega MD MUSCSKEL SYMPT LIMB NEC (Primary Dx) Social History Tobacco Use Types Packs/Day Years Used Date Smoking Tobacco: Never Assessed Comments Unknown Sex and Gender Information Value Date Recorded Sex Assigned at Not on file Legal Sex Female 5:09 AM FORMING DEPARTMENT SUPERVISOR Gender Identity Not on file Sexual Orientation Not on file documented as of this encounter Plan of Treatment Not on file documented as of this encounter Visit Diagnoses Diagnosis Other musculoskeletal symptoms referable to limbs(729.89)- Primary Other musculoskeletal symptoms referable to limbs documented in this encounter Care Teams Basket Hand Weaver Relationship Specialty Start Date End Date Rod Buckner PA-C PCP - General Physician Police [employer] Program Coordinator 10/05/20 documented as of this encounter
--- OUTSIDE RECORDS SUMMARY | 2025-01-06 11:43 | XMS_ITS | Encounter Summary ---
Author Organization [facility] Address [address] [place] [address] Care Team Providers Care Printed Circuit Board Panels Trimmer Name Role Phone Rod Buckner PA-C Primary Care Provide r Encounter Details Date Type Department Care Team (Late st Contact Info) Description 10/16/2008 Outpatient Historical [facility] Hand [facility] [address] [place] [address] Armida Mendez MD [address] [facility] [address] [place] [address] Social History Tobacco Use Types Packs/Day Years Used Date Smoking Tobacco: Never Assessed Comments Unknown Sex and Gender Information Value Date Recorded Sex Assigned at Not on file Legal Sex Female 5:09 AM ELEVATED MOTORMAN Gender Identity Not on file Sexual Orientation Not on file documented as of this encounter Plan of Treatment Not on file documented as of this encounter Visit Diagnoses Not on filedocumented in this encounter Care Teams Printed Circuit Board Panels Trimmer Relationship Specialty Start Date End Date Rod Buckner PA-C PCP - General Physician Psychometrist 10/05/20 documented as of this encounter
--- OUTSIDE RECORDS SUMMARY | 2025-01-06 11:43 | XMS_ITS | Encounter Summary ---
Author Organization [employer] Address [address] [place] [address] Care Team Providers Care Delivery Driver/Supervisor Name Role Phone Rod Buckner PA-C Primary Care Provide r Encounter Details Date Type Department Care Team (Late st Contact Info) Description 02/19/2005 Outpatient Historical Division of Neurology [address] [address] Armida Mendez MD [address] [facility] [address] [place] [address] Social History Tobacco Use Types Packs/Day Years Used Date Smoking Tobacco: Never Assessed Comments Unknown Sex and Gender Information Value Date Recorded Sex Assigned at Not on file Legal Sex Female 5:09 AM OIL ANALYST Gender Identity Not on file Sexual Orientation Not on file documented as of this encounter Plan of Treatment Not on file documented as of this encounter Visit Diagnoses Not on filedocumented in this encounter Care Teams Delivery Driver/Supervisor Relationship Specialty Start Date End Date Rod Buckner PA-C PCP - General Physician Form Setter/Driver 10/05/20 documented as of this encounter
--- OUTSIDE RECORDS SUMMARY | 2025-01-06 11:43 | XMS_ITS | Encounter Summary ---
Author Organization [facility] Address [address] [place] [address] Care Team Providers Care Topology Professor Name Role Phone Rod Buckner PA-C Primary Care Provide r Encounter Details Date Type Department Care Team (Late st Contact Info) Description 08/19/2004 Outpatient Historical [facility] MRI DEPT Armida Mendez MD [address] [facility] [address] [place] [phone] MULTIPLE SCLEROSIS (CMS/HCC) (Primary Dx) Social History Tobacco Use Types Packs/Day Years Used Date Smoking Tobacco: Never Assessed Comments Unknown Sex and Gender Information Value Date Recorded Sex Assigned at Not on file Legal Sex Female 5:09 AM FASTENER SEWING MACHINE OPERATOR Gender Identity Not on file Sexual Orientation Not on file documented as of this encounter Plan of Treatment Not on file documented as of this encounter Visit Diagnoses Diagnosis Multiple sclerosis (CMS/HCC)- Primary Multiple sclerosis documented in this encounter Care Teams Topology Professor Relationship Specialty Start Date End Date Rod Buckner PA-C PCP - General Physician Grocery Bagger 10/05/20 documented as of this encounter
--- OUTSIDE RECORDS SUMMARY | 2025-01-06 11:43 | XMS_ITS | Encounter Summary ---
Author Organization [facility] Address [address] [place] [address] Care Team Providers Care Mechanical Design Engineer Name Role Phone Rod Buckner PA-C Primary Care Provide r Encounter Details Date Type Department Care Team (Late st Contact Info) Description 01/11/2009 Outpatient Historical [facility] MRI DEPT Armida Hubbard MD [address] [facility] [address] [place] [address] Social History Tobacco Use Types Packs/Day Years Used Date Smoking Tobacco: Never Assessed Comments Unknown Sex and Gender Information Value Date Recorded Sex Assigned at Not on file Legal Sex Female 5:09 AM SCHOOL PHOTOGRAPHS DETAILER Gender Identity Not on file Sexual Orientation Not on file documented as of this encounter Plan of Treatment Not on file documented as of this encounter Procedures Procedure Name Priority Date/Time Associated Diagnosis Comments MRI BRAIN W WO CONTRAST Timed Study 01/11/2009 8:44 AM SCHOOL PHOTOGRAPHS DETAILER POC CREATININE Routine 01/11/2009 8:01 AM SCHOOL PHOTOGRAPHS DETAILER XR SKULL LESS THAN 4 VW Timed Study 01/11/2009 7:42 AM SCHOOL PHOTOGRAPHS DETAILER documented in this encounter Results * MRI BRAIN W WO CONTRAST (01/11/2009 8:44 AM SCHOOL PHOTOGRAPHS DETAILER) Anatomical Region Laterality Modality Head Other 01/11/2009 8:44 AM SCHOOL PHOTOGRAPHS DETAILER Narrative 01/11/2009 4:40 PM SCHOOL PHOTOGRAPHS DETAILER [address] [address] [place], [place] [address] Admit Date: 01/11/2009 EUGENIA PINZON Sex: F Admit Prov: ARMIDA HUBBARD Date: 1960 Primary Care Prov: NICKO GARCIA CMRN: [id number] [facility] [id number] IM[facility]ING SERVICES Ordering Prov: N/A Accession Number: [id number] Interpretation MRI BRAIN WITHOUT AND WITH IV CONTRAST, 01/11/2009 History: Multiple sclerosis, increasing fatigue and decreasing cognition. Comparison: 10/29/2007. Brain sequences according to the demyelinating protocol, were performed, demonstrating no enhancing lesions. There is a decrease in parenchymal volume, overall thinning of the corpus callosum, and multiple focal areas of encephalomalacia. This is unchanged in amount compared with the prior exam. Impression: Stable changes compared with September of 2007, indicative of chronic multiple sclerosis. . Dictated by: CLAUDE GONZALEZ 01/11/2009 11:02 Electronically signed by: CLAUDE GONZALEZ 01/11/2009 16:38 Transcribed: 01/11/2009 14:19 SMM Procedure Note Claude Gonzalez - 01/11/2009 [address] [address] [place], [place] [address] Admit Date: 01/11/2009 EUGENIA PINZON Sex: F Admit Prov: ARMIDA HUBBARD Date: 1960 Primary Care Prov: NICKO GARCIA CMRN: [id number] [facility] [id number] IMAGING SERVICES Ordering Prov: N/A Interpretation MRI BRAIN WITHOUT AND WITH IV CONTRAST, 01/11/2009 History: Multiple sclerosis, increasing fatigue and decreasingcognition. Comparison: 10/29/2007. Brain sequences according to the demyelinating protocol, wereperformed, demonstrating no enhancing lesions. There is a decrease inparenchymal volume, overall thinning of the corpus callosum, and multiple focalareas of encephalomalacia. This is unchanged in amount compared with theprior exam. Impression: Stable changes compared with September of 2007, indicativeof chronic multiple sclerosis. . Dictated by: CLAUDE GONZALEZ 01/11/2009 11:02 Electronically signed by: CLAUDE GONZALEZ 01/11/2009 16:38 Transcribed: 01/11/2009 14:19 [facility] Armida Hubbard MD MR ORDERABLES Final Result * (ABNORMAL) POC CREATININE (01/11/2009 8:01 AM SCHOOL PHOTOGRAPHS DETAILER) CREATININE POC 1.0 0.6 - 1.3 mg/dL [facility] Comment: The calculation for the estimated GFR on the i-STAT POC instrument has been changed to correspond to the IDMS-traceable MDRD Study, upon the recommendation of the business continuity strategy director of the i-STAT instrument. The change was effective in our laboratory 11/06/2008. The impact of this change to the estimated GFR is minimal. This calculation is used by the main laboratory methodology also. GFR, >60 >=60 mL/min/1.7 sq meter [facility] GFR 59(L) >=60 mL/min/1.7 sq meter [facility] Capillary blood specimen (specimen) 01/11/2009 8:01 AM SCHOOL PHOTOGRAPHS DETAILER 01/11/2009 8:01 AM SCHOOL PHOTOGRAPHS DETAILER us Armida Hubbard MD POINT OF CARE TESTING Edited INTERFACE SYSTEM Refer to clinic/hospital department [facility] CLIA# [id number] [address] [address] * XR SKULL < 4 VW (01/11/2009 7:42 AM SCHOOL PHOTOGRAPHS DETAILER) Anatomical Region Laterality Modality Head Other 01/11/2009 7:42 AM SCHOOL PHOTOGRAPHS DETAILER Narrative 01/11/2009 3:14 PM SCHOOL PHOTOGRAPHS DETAILER [facility] [address] [place], [place] [address] Admit Date: 01/11/2009 EUGENIA PINZON Sex: F Admit Prov: ARMIDA HUBBARD Date: 1960 Primary Care Prov: NICKO GARCIA CMRN: [id number] [facility] [id number] IMAGING SERVICES Ordering Prov: N/A Accession Number: [id number] Interpretation SKULL 2 VIEWS FOR INTRAOCULAR METAL FOREIGN BODY 01/11/2009 History: Rule out intraocular metal foreign body prior to MR scan Findings: Examination shows no intraocular metal foreign bodies are identified. Paranasal sinuses appear clear. Sella turcica is not eroded or enlarged. IMPRESSION: Negative exam. . Dictated by: ANDREEA HOOK 01/11/2009 07:56 Electronically signed by: ANDREEA HOOK 01/11/2009 15:12 Transcribed: 01/11/2009 08:25 Procedure Note Andreea Hook MD - 01/11/2009 [address] [place], [place] [address] Admit Date: 01/11/2009 EUGENIA PINZON Sex: F Admit Prov: ARMIDA HUBBARD Date: 1960 Primary Care Prov: NICKO GARCIA CMRN: [id number] [facility] [id number] IMAGING SERVICES Ordering Prov: N/A Interpretation SKULL 2 VIEWS FOR INTRAOCULAR METAL FOREIGN BODY 01/11/2009 History: Rule out intraocular metal foreign body prior to MR scan Findings: Examination shows no intraocular metal foreign bodies areidentified. Paranasal sinuses appear clear. Sella turcica is not eroded orenlarged. IMPRESSION: Negative exam. . Dictated by: ANDREEA HOOK 01/11/2009 07:56 Electronically signed by: ANDREEA HOOK 01/11/2009 15:12 Transcribed: 01/11/2009 08:25 Armida Hubbard MD DIAGNOSTIC IMAGING ORDERABLES Final Result documented in this encounter Visit Diagnoses Not on filedocumented in this encounter Care Teams Mechanical Design Engineer Relationship Specialty Start Date End Date Rod Buckner PA-C PCP - General Physician Licensed Therapist 10/05/20 documented as of this encounter
--- OUTSIDE RECORDS SUMMARY | 2025-01-06 11:43 | XMS_ITS | Encounter Summary ---
Author Organization [facility] [place] Address [address] [place] [address] Care Team Providers Care Finish Inspector Name Role Phone Rod Buckner PA-C Primary Care Provide r Zuly Miller MD Unavailable Reason for Visit * Reason Onset Date Comments Appointment 03/29/2021 Encounter Details Date Type Department Care Team (Late st Contact Info) Description 03/29/2021 Telephone [facility] [address] [place] [address] Bebe Faulkner MD [address] [address] Appointment Social History Tobacco Use Types Packs/Day Years [...] or have serious hearing difficult y? No 09/10/2018 Is person blind or have serious difficulty seein g? No 09/10/2018 Does person have serious dif ficulty walking/climbing stairs? No 09/10/2018 Does person have difficulty dressing/bathing? No 09/10/2018 Does person have difficulty doing errands alone? No 09/10/2018 Cognitive Status Response Date of Assessm ent Does person have difficulty concentrating/remembering/making decisions? No 09/10/2018 documented as of this encounter Miscellaneous Notes * Telephone Encounter - Leo Baker - 03/29/2021 3:05 PM CDT DIAGNOSIS FOR VISIT ABSCESS OF NIPPLES AND BREAST PATIENT CALL BACK NUMBER [phone] IS THE PATIENT ESTABLISHED NO IS THE PATIENT NEW YES DOES THE PATIENT NEED IMAGING WES IS THE APPOINTMENT MORE THAN 2-3 WEEKS OUT? 5.19 IS NEXT AVAIL. WHEN SHOULD I SCHEDULE? documented in this encounter Plan of Treatment Upcoming Encounters Date Type Department Care Team (Late st Contact Info) Description 02/08/2025 10:30 AM CDT Office Visit [facility] - GI [address] [facility] [place] [address] Isai Leon MD [address] [place] [address] 08/21/2025 11:30 AM CDT Office Visit [facility] - General Surgery [address] [place] [address] Bebe Faulkner MD [address] [facility] [address] [place] [address] documented as of this encounter Goals Goal Patient Goal Type Associated Problems Recent Progress Patient-Stated? Author Safety General On track( 024 2:13 PM HEALTHCARE BUSINESS ANALYST) No Ml Livingston, RN Note: Expected end date: Ongoing Interventions: Your nurse will assess your risk for falls/injury each visit Use appropriate and safe transfer methods Medication Management General On track( 024 2:13 PM HEALTHCARE BUSINESS ANALYST) No Ml Livingston, RN Note: Expected end date: Ongoing Interventions: Take all medications as prescribed Let your doctor know right away about any changes in your medications documented as of this encounter Visit Diagnoses Not on filedocumented in this encounter Care Teams Finish Inspector Relationship Specialty Start Date End Date Rod Buckner PA-C [address] [facility] [address] [place] [address] PCP - General 02/18/19 Zuly Miller MD [address] [facility] [address] [place] [address] Hematology and Oncology 02/17/24 documented as of this encounter
--- OUTSIDE RECORDS SUMMARY | 2025-01-06 11:43 | XMS_ITS | Encounter Summary ---
Author Organization [employer] Address [address] [place] [address] Care Team Providers Care Unleavened Dough Mixer Name Role Phone Rod Buckner PA-C Primary Care Provide r Encounter Details Date Type Department Care Team (Latest Contact Info) Description 11/07/2008 Outpatient Historical [facility] González Roy MD [address] [place] [address] Unspecified Asthma Social History Tobacco Use Types Packs/Day Years Used Date Smoking Tobacco: Never Assessed Comments Unknown Sex and Gender Information Value Date Recorded Sex Assigned at Not on file Legal Sex Female 5:09 AM HELP DESK SUPPORT SPECIALIST Gender Identity Not on file Sexual Orientation Not on file documented as of this encounter Plan of Treatment Not on file documented as of this encounter Procedures Procedure Name Priority Date/Time Associated Diagnosis Comments BLOOD GAS ARTERIAL WITH HGB & HCT Routine 11/07/2008 9:10 AM HELP DESK SUPPORT SPECIALIST documented in this encounter Results * BLOOD GAS ARTERIAL WITH HGB & HCT (11/07/2008 9:10 AM HELP DESK SUPPORT SPECIALIST) O2 CONC ARTERIAL 21 [facility] FO2HB ABG 96 94 - 98 % [facility] BASE EXCESS ABG -0.8 -2.0 - 3.0 mmol/L [facility] HEMATOCRIT ABG 43.0 35.5 - 44.0 % [facility] PO2 ARTERIAL 87 83 - 108 mm Hg [facility] PH ARTERIAL 7.41 7.35 - 7.45 [facility] SO2 ABG 97 95 - 99 % [facility] HCO3 ARTERIAL 23 22 - 26 mmol/L [facility] HEMOGLOBIN ABG 14.0 11.8 - 14.8 g/dL [facility] PCO2 ARTERIAL 37 35 - 48 mm Hg [facility] Arterial blood specimen (specimen) 11/07/2008 9:10 AM HELP DESK SUPPORT SPECIALIST 11/07/2008 9:29 AM HELP DESK SUPPORT SPECIALIST us González Roy MD ABG ORDERABLES Final Result Performing Organization Address City/State/[facility] Co de Phone Number INTERFACE SYSTEM Refer to clinic/hospital department [facility] CLIA# [id number] [address] [place] [address] documented in this encounter Visit Diagnoses Diagnosis Unspecified asthma(493.90) Unspecified asthma documented in this encounter Care Teams Unleavened Dough Mixer Relationship Specialty Start Date End Date Rod Buckner PA-C PCP - General Physician License Issuer 10/05/20 documented as of this encounter
--- OUTSIDE RECORDS SUMMARY | 2025-01-06 11:43 | XMS_ITS | Encounter Summary ---
Author Organization [facility] Address [address] [place] [address] Care Team Providers Care Honing Machine Operator Semiautomatic Name Role Phone Rod Buckner PA-C Primary Care Provide r Zuly Miller MD Unavailable [phone] Encounter Details Date Type Department Care Team (Late st Contact Info) Description 05/22/[address] [facility] [address] [place] [phone] Shanice Hernandez, RN Social History Tobacco Use [...] Visit [facility] - [facility] [address] [facility], [place] [address] Isai Leon MD [address] [place] [address] 08/21/2025 11:30 AM CDT Office Visit [facility] - General Surgery [address] [place] [address] Bebe Faulkner MD [address] [facility] [address] [place] [address] documented as of this encounter Goals Goal Patient Goal Type Associated Problems Recent Progress Patient-Stated? Author Safety General On track( 024 2:13 PM NURSING CONSULTANT) No Ml Livingston, RN Note: Expected end date: Ongoing Interventions: Your nurse will assess your risk for falls/injury each visit Use appropriate and safe transfer methods Medication Management General On track( 024 2:13 PM NURSING CONSULTANT) Ml Serra, RN Note: Expected end date: Ongoing Interventions: Take all medications as prescribed Let your doctor know right away about any changes in your medications documented as of this encounter Visit Diagnoses Not on filedocumented in this encounter Care Teams Honing Machine Operator Semiautomatic Relationship Specialty Start Date End Date Rod Buckner PA-C [address] [facility] [address] [place] [address] PCP - General 02/18/19 Zuly Miller MD [address] [facility] [address] [place] [address] Hematology and Oncology 02/17/24 documented as of this encounter
--- OUTSIDE RECORDS SUMMARY | 2025-01-06 11:43 | XMS_ITS | Encounter Summary ---
Author Organization [employer] Address [address] [place] [address] Care Team Providers Care Vat House Laborer Name Role Phone Rod Buckner PA-C Primary Care Provide r Encounter Details Date Type Department Care Team (Late st Contact Info) Description 10/20/2006 Outpatient Historical Division of Neurology [address] [address] Armida Mendez MD [address] [facility] [address] [place] [address] Social History Tobacco Use Types Packs/Day Years Used Date Smoking Tobacco: Never Assessed Comments Unknown Sex and Gender Information Value Date Recorded Sex Assigned at Not on file Legal Sex Female 5:09 AM CAKE WRAPPER Gender Identity Not on file Sexual Orientation Not on file documented as of this encounter Plan of Treatment Not on file documented as of this encounter Visit Diagnoses Not on filedocumented in this encounter Care Teams Vat House Laborer Relationship Specialty Start Date End Date Rod Buckner PA-C PCP - General Physician Combustion Analyst 10/05/20 documented as of this encounter
--- OUTSIDE RECORDS SUMMARY | 2025-01-06 11:43 | XMS_ITS | Encounter Summary ---
Author Organization [facility] Address [address] [place] [address] Care Team Providers Care Insurance Risk Manager Name Role Phone Rod Buckner PA-C Primary Care Provide r Encounter Details Date Type Department Care Team (Latest Contact Info) Description 11/07/2008 Outpatient Historical [facility] González Roy MD [address] [place] [phone] Unspecified Asthma Social History Tobacco Use Types Packs/Day Years Used Date Smoking Tobacco: Never Assessed Comments Unknown Sex and Gender Information Value Date Recorded Sex Assigned at Not on file Legal Sex Female 5:09 AM CABIN CREW Gender Identity Not on file Sexual Orientation Not on file documented as of this encounter Plan of Treatment Not on file documented as of this encounter Visit Diagnoses Diagnosis Unspecified asthma(493.90) Unspecified asthma documented in this encounter Care Teams Insurance Risk Manager Relationship Specialty Start Date End Date Rod Buckner PA-C PCP - General Physician Medicare Biller 10/05/20 documented as of this encounter
--- OUTSIDE RECORDS SUMMARY | 2025-01-06 11:43 | XMS_ITS | Encounter Summary ---
Author Organization [employer] Address [address] [place] [address] Care Team Providers Care Transit Authority Police Officer Name Role Phone Rod Buckner PA-C Primary Care Provide r Encounter Details Date Type Department Care Team (Late st Contact Info) Description 04/08/2006 Outpatient Historical Division of Neurology [address] [address] Armida Mendez MD [address] [facility] [address] [place] [address] Social History Tobacco Use Types Packs/Day Years Used Date Smoking Tobacco: Never Assessed Comments Unknown Sex and Gender Information Value Date Recorded Sex Assigned at Not on file Legal Sex Female 5:[address] Gender Identity Not on file Sexual Orientation Not on file documented as of this encounter Plan of Treatment Not on file documented as of this encounter Visit Diagnoses Not on filedocumented in this encounter Care Teams Transit Authority Police Officer Relationship Specialty Start Date End Date Rod Buckner PA-C PCP - General Physician Breaker Layer 10/05/20 documented as of this encounter
--- OUTSIDE RECORDS SUMMARY | 2025-01-06 11:43 | XMS_ITS | Encounter Summary ---
Author Organization [employer] [facility] Address [address] [place] [address] Care Team Providers Care Machine Buffer Name Role Phone Rod Buckner PA-C Primary Care Provide r Encounter Details Date Type Department Care Team (Late st Contact Info) Description 11/02/2008 Outpatient Historical [facility] MRI DEPT González Roy MD [address] [place] [phone] Embolism and Thrombosis of Unspecified Site (CMS/HCC) Social History Tobacco Use Types Packs/Day Years Used Date Smoking Tobacco: Never Assessed Comments Unknown Sex and Gender Information Value Date Recorded Sex Assigned at Not on file Legal Sex Female 5:09 AM OBIEE OBIA SOLUTION ARCHITECT Gender Identity Not on file Sexual Orientation Not on file documented as of this encounter Plan of Treatment Not on file documented as of this encounter Procedures Procedure Name Priority Date/Time Associated Diagnosis Comments US LOW EXT MERLE DUPLEX COMP BILAT Routine 11/02/2008 4:52 PM OBIEE OBIA SOLUTION ARCHITECT CTA CHEST W WO CONTRAST Timed Study 11/02/2008 9:53 AM OBIEE OBIA SOLUTION ARCHITECT POC CREATININE Routine 11/02/2008 9:37 AM OBIEE OBIA SOLUTION ARCHITECT documented in this encounter Results * US LOW EXT MERLE DUPLEX COMP BILAT (11/02/2008 4:52 PM OBIEE OBIA SOLUTION ARCHITECT) Anatomical Region Laterality Modality Lower Extremity Other Narrative 11/02/2008 4:52 PM OBIEE OBIA SOLUTION ARCHITECT [place] [id number] [place] [address] [email or web address] Peripheral Venous Study Patient: Eugenia Pinzon Study ID: BLOOD FLOW STUDY Gender: F : 1960 Age: 48 years Race: 1 Room: Bed: Height: Study Date: November 02, 2008 Patient status: Outpatient Weight: Access. #: [id number] POC: Lumber Yard Worker: Carldexana Ordering: Brandon Attending MD: Brandon Johnitting MD: Brandon SUMMARY: There was no evidence of deep vein thrombosis of the bilateral lower extremity veins. COMPARISONS No previous study is available for comparison. HISTORY AND INDICATIONS: INDICATIONS: Shortness of breath. HISTORY: Risk factors and comorbidity: No previous deep vein thrombosis. Morbid obesity. The patient is not on an anticoagulant.. PROCEDURE INFORMATION: PROCEDURE PERFORMED: Complete color duplex study with imaging and spectral analysis was performed. RIGHT DUPLEX DATA Common femoral Patency/occlusion: Patent Flow pattern: Phasic Competence test: Competent B-mode compressibility: Normal Augmentation: Present Comments: no evidence of echogenic material Superficial femoral Patency/occlusion: Patent Flow pattern: Phasic Competence test: Competent B-mode compressibility: Normal Augmentation: Present Comments: no evidence of echogenic material Popliteal Patency/occlusion: Patent Flow pattern: Phasic Competence test: Competent B-mode compressibility: Normal Augmentation: Present Comments: no evidence of echogenic material Peroneal Patency/occlusion: Patent Flow pattern: -- Competence test: -- B-mode compressibility: Normal Augmentation: -- Comments: no evidence of echogenic material Posterior tibial Patency/occlusion: Patent Flow pattern: -- Competence test: -- B-mode compressibility: Normal Augmentation: -- Comments: no evidence of echogenic material LEFT DUPLEX DATA Common femoral Patency/occlusion: Patent Flow pattern: Phasic Competence test: Competent B-mode compressibility: Normal Augmentation: Present Comments: No evidence of echogenic material Superficial femoral Patency/occlusion: Patent Flow pattern: Phasic Competence test: Competent B-mode compressibility: Normal Augmentation: Present Comments: no evidence of echogenic material Popliteal Patency/occlusion: Patent Flow pattern: Phasic Competence test: Competent B-mode compressibility: Normal Augmentation: Present Comments: no evidence of echogenic material Peroneal Patency/occlusion: Patent Flow pattern: -- Competence test: -- B-mode compressibility: Normal Augmentation: -- Comments: no evidence of echogenic material Posterior tibial Patency/occlusion: Patent Flow pattern: -- Competence test: -- B-mode compressibility: Normal Augmentation: -- Comments: no evidence of echogenic material There was no evidence of deep vein thrombosis of the bilateral lower extremity veins. Prepared and Electronically Authenticated Gulshan Tejeda MD Confirmed November 02, 2008 16:49:47 Procedure Note Provider, Historical - 11/02/2008 [facility] [address] [place] [address] [email or web address] Peripheral Venous Study Patient: Eugenia Pinzon Study ID: BLOOD FLOW STUDY Gender: F : 1960 Age: 48 years Race: 1 Room: Bed: Height: Study Date: November 02, 2008 Patient status: Outpatient Weight: Access. #: [id number] POC: Lumber Yard Worker: Claudy Ordering: Brandon Attending MD: Brandon Admitting MD: Brandon SUMMARY: There was no evidence of deep vein thrombosis of the bilateral lowerextremity veins. COMPARISONS No previous study is available for comparison. HISTORY AND INDICATIONS: INDICATIONS: Shortness of breath. HISTORY: Risk factors and comorbidity: No previous deep vein thrombosis. Morbidobesity. The patient is not on an anticoagulant.. PROCEDURE INFORMATION: PROCEDURE PERFORMED: Complete color duplex study with imaging and spectral analysis wasperformed. RIGHT DUPLEX DATA Common femoral Patency/occlusion: Patent Flow pattern: Phasic Competence test: Competent B-mode compressibility: Normal Augmentation: Present Comments: no evidence of echogenic material Superficial femoral Patency/occlusion: Patent Flow pattern: Phasic Competence test: Competent B-mode compressibility: Normal Augmentation: Present Comments: no evidence of echogenic material Popliteal Patency/occlusion: Patent Flow pattern: Phasic Competence test: Competent B-mode compressibility: Normal Augmentation: Present Comments: no evidence of echogenic material Peroneal Patency/occlusion: Patent Flow pattern: -- Competence test: -- B-mode compressibility: Normal Augmentation: -- Comments: no evidence of echogenic material Posterior tibial Patency/occlusion: Patent Flow pattern: -- Competence test: -- B-mode compressibility: Normal Augmentation: -- Comments: no evidence of echogenic material LEFT DUPLEX DATA Common femoral Patency/occlusion: Patent Flow pattern: Phasic Competence test: Competent B-mode compressibility: Normal Augmentation: Present Comments: No evidence of echogenic material Superficial femoral Patency/occlusion: Patent Flow pattern: Phasic Competence test: Competent B-mode compressibility: Normal Augmentation: Present Comments: no evidence of echogenic material Popliteal Patency/occlusion: Patent Flow pattern: Phasic Competence test: Competent B-mode compressibility: Normal Augmentation: Present Comments: no evidence of echogenic material Peroneal Patency/occlusion: Patent Flow pattern: -- Competence test: -- B-mode compressibility: Normal Augmentation: -- Comments: no evidence of echogenic material Posterior tibial Patency/occlusion: Patent Flow pattern: -- Competence test: -- B-mode compressibility: Normal Augmentation: -- Comments: no evidence of echogenic material There was no evidence of deep vein thrombosis of the bilateral lowerextremity veins. Prepared and Electronically Authenticated Gulshan Tejeda MD Confirmed November 02, 2008 16:49:47 us González Roy MD US ORDERABLES Final Result * CTA CHEST W WO CONTRAST (11/02/2008 9:53 AM OBIEE OBIA SOLUTION ARCHITECT) Anatomical Region Laterality Modality Chest Other 11/02/2008 9:53 AM OBIEE OBIA SOLUTION ARCHITECT Narrative 11/02/2008 2:41 PM OBIEE OBIA SOLUTION ARCHITECT [facility] [address] [place], [place] [address] Admit Date: 11/02/2008 DRAKE PINZONEVER Joyner Sex: F Admit Prov: GONZÁLEZ ROY Date: 1960 Primary Care Prov: NICKO GARCIA CMRN: [id number] Room: [facility] SSN: [address] [place] [address] IMAGING SERVICES Ordering Prov: N/A Accession Number: [id number] Interpretation CT PULMONARY ANGIOGRAM WITHOUT AND WITH INTRAVENOUS CONTRAST INCLUDING POST PROCESSING RECONSTRUCTIONS, 11/02/2008 Clinical History: Shortness of breath. Technique: Spiral volumetric acquisition of the chest was performed following intravenous contrast. Initially noncontrast images were obtained for localization and bolus tracking. Post processing reconstructions were performed. Findings: No intraluminal filling defects are noted within the pulmonary arteries to suggest pulmonary emboli. No mediastinal, hilar, or axillary adenopathy is seen. No pericardial or pleural effusions are evident. Lung parenchymal windows demonstrate mild dependent atelectasis. No focal consolidation or suspicious pulmonary nodules are seen. A calcified nodule is noted in the peripheral left lower lobe. The airway is patent. The visualized upper abdomen demonstrates a small hiatal hernia. The visualized upper abdomen is otherwise unremarkable. Impression: No CT evidence of pulmonary emboli. Mild dependent atelectasis. Small hiatal hernia. . Dictated by: GEORGIA ROWLEY 11/02/2008 10:19 Electronically signed by: GEORGIA ROWLEY11/02/2008 14:40 Transcribed: 11/02/2008 14:36 SMM Procedure Note Georgia Rowley MD - 11/02/2008 [facility] [address] [place], [place] [address] Admit Date: 11/02/2008 PINZON EUGENIA L Sex: F Admit Prov: GONZÁLEZ ROY Date: 1960 Primary Care Prov: NICKO GARCIA CMRN: [id number] Room: [facility] SSN: [id number] IMAGING SERVICES Ordering Prov: N/A Interpretation CT PULMONARY ANGIOGRAM WITHOUT AND WITH INTRAVENOUS CONTRASTINCLUDING POST PROCESSING RECONSTRUCTIONS, 11/02/2008 Clinical History: Shortness of breath. Technique: Spiral volumetric acquisition of the chest was performed following intravenous contrast. Initially noncontrast images wereobtained for localization and bolus tracking. Post processing reconstructionswere performed. Findings: No intraluminal filling defects are noted within the pulmonaryarteries to suggest pulmonary emboli. No mediastinal, hilar, or axillaryadenopathy is seen. No pericardial or pleural effusions are evident. Lung parenchymal windows demonstrate mild dependent atelectasis. Nofocal consolidation or suspicious pulmonary nodules are seen. A calcifiednodule is noted in the peripheral left lower lobe. The airway is patent. The visualized upper abdomen demonstrates a small hiatal hernia.The visualized upper abdomen is otherwise unremarkable. Impression: No CT evidence of pulmonary emboli. Mild dependent atelectasis. Small hiatal hernia. . Dictated by: GEORGIA ROWLEY 11/02/2008 10:19 Electronically signed by: GEORGIA ROWLEY11/02/2008 14:40 Transcribed: 11/02/2008 14:36 SMM González Roy MD CT ORDERABLES Final Result * POC CREATININE (11/02/2008 9:37 AM OBIEE OBIA SOLUTION ARCHITECT) CREATININE POC 0.8 0.6 - 1.3 mg/dL [facility] GFR, >60 >=60 mL/min/1.7 sq meter [facility] GFR >60 >=60 mL/min/1.7 sq meter [facility] Capillary blood specimen (specimen) 11/02/2008 9:37 AM OBIEE OBIA SOLUTION ARCHITECT 11/02/2008 9:37 AM OBIEE OBIA SOLUTION ARCHITECT us González Roy MD POINT OF CARE TESTING Edited INTERFACE SYSTEM Refer to clinic/hospital department [facility] CLIA# [id number] [address] [facility] [place] [address] documented in this encounter Visit Diagnoses Diagnosis Embolism and thrombosis of unspecified site (CMS/HCC) Embolism and thrombosis of unspecified site documented in this encounter Care Teams Machine Buffer Relationship Specialty Start Date End Date Rod Buckner PA-C PCP - General Physician Cook Syrup Maker 10/05/20 documented as of this encounter
--- OUTSIDE RECORDS SUMMARY | 2025-01-06 11:43 | XMS_ITS | Encounter Summary ---
Author Organization [employer] Address [address] [place] [address] Care Team Providers Care Second Class Welder Name Role Phone Rod Buckner PA-C Primary Care Provide r Encounter Details Date Type Department Care Team (Latest Contact Info) Description 02/26/2000 Outpatient Historical [facility] NEURO PSYCHOLOGY Beni Beard V., PhD [address] [place] [address] Multiple sclerosis (CMS/HCC) (Primary Dx) Social History Tobacco Use Types Packs/Day Years Used Date Smoking Tobacco: Never Assessed Comments Unknown Sex and Gender Information Value Date Recorded Sex Assigned at Not on file Legal Sex Female 5:09 AM WARRANT CLERK Gender Identity Not on file Sexual Orientation Not on file documented as of this encounter Plan of Treatment Not on file documented as of this encounter Visit Diagnoses Diagnosis Multiple sclerosis (CMS/HCC)- Primary Multiple sclerosis documented in this encounter Care Teams Second Class Welder Relationship Specialty Start Date End Date Rod Buckner PA-C PCP - General Physician Principal Web Developer 10/05/20 documented as of this encounter
--- OUTSIDE RECORDS SUMMARY | 2025-01-06 11:43 | XMS_ITS | Encounter Summary ---
Author Organization [facility] Address [address] [place] [address] Care Team Providers Care Tool Crib Attendant Name Role Phone Rod Buckner PA-C Primary Care Provide r Encounter Details Date Type Department Care Team (Latest Contact Info) Description 08/13/2008 Outpatient Historical [facility] NEUR[facility] PSYCHOLOG[facility] Stella Rutherford, PhD Dept. of Neuropsychology [address] [place] [address] Multiple Sclerosis (CMS/HCC) Social History Tobacco Use Types Packs/Day Years Used Date Smoking Tobacco: Never Assessed Comments Unknown Sex and Gender Information Value Date Recorded Sex Assigned at Not on file Legal Sex Female 5:09 AM SORTER LAUNDRY ARTICLES Gender Identity Not on file Sexual Orientation Not on file documented as of this encounter Plan of Treatment Not on file documented as of this encounter Visit Diagnoses Diagnosis Multiple sclerosis (CMS/HCC) Multiple sclerosis documented in this encounter Care Teams Tool Crib Attendant Relationship Specialty Start Date End Date Rod Buckner PA-C PCP - General Physician Test Development Engineer 10/05/20 documented as of this encounter
--- OUTSIDE RECORDS SUMMARY | 2025-01-06 11:43 | XMS_ITS | Encounter Summary ---
Author Organization [facility] Address [address] [place] [address] Care Team Providers Care Cnc Router Operator Name Role Phone Rod Buckner PA-C Primary Care Provide r Zuly Miller MD Unavailable [phone] Encounter Details Date Type Department Care Team (Late st Contact Info) Description 01/15/2023 Lab Requisition [facility] [address] [facility] [place] [phone] Dario Pérez MD [facility] [place] [address] Social History Tobacco Use Types Packs/Day Years [...] or have serious hearing difficult y? No 11/26/2022 Is person blind or have serious difficulty seein g? No 11/26/2022 Does person have serious dif ficulty walking/climbing stairs? No 11/26/2022 Does person have difficulty dressing/bathing? No 11/26/2022 Does person have difficulty doing errands alone? No 11/26/2022 Cognitive Status Response Date of Assessm ent Does person have difficulty concentrating/remembering/making decisions? No 11/26/2022 documented as of this encounter Plan of Treatment Upcoming Encounters Date Type Department Care Team (Late st Contact Info) Description 02/08/2025 10:30 AM CDT Office Visit [facility] - GI [address] [facility] [place] [phone] Isai Leon MD [address] [place] [phone] 08/21/2025 11:30 AM CDT Office Visit [facility] - General Surgery [address] [place] [phone] Bebe Faulkner MD [address] [facility] [address] [place] [address] documented as of this encounter Goals Goal Patient Goal Type Associated Problems Recent Progress Patient-Stated? Author Safety General On track( 2:13 PM COPY CHASER) Ml Serra, RN Note: Expected end date: Ongoing Interventions: Your nurse will assess your risk for falls/injury each visit Use appropriate and safe transfer methods Medication Management General On track( 2:13 PM COPY CHASER) No Ml Livingston, RN Note: Expected end date: Ongoing Interventions: Take all medications as prescribed Let your doctor know right away about any changes in your medications documented as of this encounter Procedures Procedure Name Priority Date/Time Associated Diagnosis Comments DERMATOPATHOLOGY Routine 01/15/2023 12:0 0 AM COPY CHASER documented in this encounter Results * DERMATOPATHOLOGY (01/15/2023 12:00 AM COPY CHASER) Case Report Dermatopathology Report Case: [id number] Authorizing Provider: Dario Pérez MD Collected: 01/15/2023 12:00 AM Ordering Location: [facility] Derm[facility] Lab Received: 01/15/2023 04:51 PM Pathologist: Goldie Choudhary MD Specimen: Skin, left thumb 3 11:02 AM [facility] DERMAT[facility]ORAT[facility] Final Diagnosis Specimen A. SKIN, left thumb: [place] (B07.8) 3 11:02 AM [facility] DERMATOPATHOLOGY [facility]ORAT[facility] Clinical History Patch/plaque eczema, contact, Reena, [facility], [place] 3 11:02 AM [facility]ERMAT[facility]ATH[facility]Y [facility]OR[facility] Gross Description Specimen A: Received is one formalin filled container labeled with the patient's name and designated left thumb. The specimen consists of a shave biopsy measuring 8x4x1 mm. Jar 0. 3 11:02 AM [facility] DERMATOPATHOLOGY [facility]OR[facility] Microscopic Description Specimen A. SKIN, left thumb: There is gently papillated epidermal hyperplasia, hypergranulosis, and laminated hyperorthokeratosis . 3 11:02 AM [facility]ERMAT[facility]ATH[facility]OR[facility] Disclaimer An external and internal positive and negative controls are appropriate for the histochemical, immunohistochemical and immunofluorescence stain(s) in this case (if any), except where stated explicitly. The performance characteristics of the stain(s) cited in this report were developed and its performance characteristic determined by the Dermatopathology Laboratory at [facility], directed by Dr. Ced Salazar. These tests need not be, and therefore are not, approved by the [place] Food and Drug Administration. The tests are used for clinical purposes. Billing Codes Specimen Charges Stain Charges 74602 1 3 11:02 AM [facility] DERMATOPATHOLOGY [facility]ORATORY Embedded Images 3 11:02 AM [facility] DERMAT[facility]Y [facility]ORY Pathology/Cytolog y TISSUE SPECIMEN FROM SKIN / Unknown 01/15/2023 01/15/2023 4:51 PM COPY CHASER Dario Pérez MD LAB - PATHOLOGY/CYTO LOGY ORDERABLES DERMATOPATHOLOGY LABORATORY [facility] - Department of Dermatology [facility] Medicine [address] [place] [address], [address] [phone] documented in this encounter Visit Diagnoses Not on filedocumented in this encounter Care Teams Cnc Router Operator Relationship Specialty Start Date End Date Rod Buckner PA-C [address] [place] [address] PCP - General 02/18/19 Zuly Miller MD [address] [facility] [address] [place] [address] Hematology and Oncology 02/17/24 documented as of this encounter
--- OUTSIDE RECORDS SUMMARY | 2025-01-06 11:43 | XMS_ITS ---
Author Organization [address] Address [address] [place] [address] Care Team Providers Care Marine Structural Welder Name Role Phone Rod Buckner Primary Care Provider Gail Wyatt MD Unavailable [phone] Active Problems Problem Noted Date Diagnosed Date Asthma in adult, mild persistent, uncomplicated 11/08/2024 Chronic bronchitis, unspecified chronic bronchit is type 04/01/2024 alf (current) use of aromatase inhibitors 08/15/2022 Acquired absence of both breasts 02/07/2021 Malignant neoplasm of breast 02/07/2021 Cancer Staging:Clinical:Stage IA(cT1b, cN0(sn), cM0, G1, ER+, MN+, HER2-) - Signed by aGil Wyatt MD on 05/02/2021 Ductal carcinoma in [...] Tamsulosin Assessment & Plan (12/08/2019 10:21 AM HEALTH SPECIALIST): Desipramine Tamsulosin Assessment & Plan (05/24/2019 7:33 [...] discussed. Assessment & Plan (12/08/2019 10:20 AM HEALTH SPECIALIST): Continue Emgality monthly Continue Botox Should not [...] depression Assessment & Plan (12/08/2019 10:36 AM HEALTH SPECIALIST): Continue following with Dr. 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 She did go to [facility] [place] in the past, but left when she [...] that she [facility] 2022 but I [...] discussed. Assessment & Plan (12/08/2019 10:31 AM HEALTH SPECIALIST): Discussed the option of oral medication due to lipoatrophy. I told her she should not inject in those areas and that the medication maybe less effective is she is injecting in non-approved sites. Patient declines talk of oral medication options. Continue Copaxone 20mg daily per patient preference Continue exercise Discussed weight loss and nutrition. Will also provide her with Toya Valladares NP phone number Follow up with Dr. Brennan [...] in 6 months or sooner if needed Current Oncology Plans Zoledronic Acid (ZOMETA) Infusion* Plan Start Date:02/20/2023 Plan Provider:Gail Wyatt MD Linked Problems tank terminal gauger (current) use of a romatase inhibitorsMalignant neoplasm of upper-outer quadrant of left breast in female, estrogen receptor positive (HCC) Treatment Medications No medications scheduled. Past Plans No past plan information found. Radiation Treatments * No radiation treatments are documented for this patient in [facility]. Treatments may have been administered in another system. Lifetime Dose Tracking * Chemical Lifetime Dose Automatic Entry Manual Entr y DLP 1,914 mGycm 1,914 mGycm 0 mGycm Resolved Problems Problem Noted Date Diagnosed Date Resolved Date Osteopenia of multiple sites 10/14/2023 02/05/2024 History of left breast cancer 03/14/2021 02/05/2024 Malignant neoplasm of upper- outer quadrant of left breast in female, estrogen receptor positive 06/12/2020 03/31/2023 Overview (07/30/2022): Left, upper outer, 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 ER pos 100% (strong), MN pos 100% (strong), Her-2 neg (0 on [...] Dr. Arlin Pruitt Functional diarrhea 01/11/2020 02/05/20 Increased risk of breast cancer 11/11/2019 02/05/2024 [...] dose of Ergocalciferol accordingly Abdominal cramping 02/22/2019 Other acute recurrent sinusitis 02/04/2019 02/05/2024 Skin [...] of sleep H/O: heart disorder 08/24/2015 02/05/20 Overview (03/06/2017): Hx of congestive heart failure [...]
--- OUTSIDE RECORDS SUMMARY | 2025-01-06 11:43 | XMS_ITS | Encounter Summary ---
Author Organization [facility] Address [address] [place] [address] Care Team Providers Care Telesales Team Leader Name Role Phone Rod Buckner PA-C Primary Care Provide r Encounter Details Date Type Department Care Team (Late st Contact Info) Description 10/29/2007 Outpatient Historical [facility] DEPT Armida Mendez MD [address] [facility] [address] [place] [id number] Multiple Sclerosis (CMS/HCC) (Primary Dx) Social History Tobacco Use Types Packs/Day Years Used Date Smoking Tobacco: Never Assessed Comments Unknown Sex and Gender Information Value Date Recorded Sex Assigned at Not on file Legal Sex Female 5:09 AM BEEHIVE KILN CHARCOAL BURNER Gender Identity Not on file Sexual Orientation Not on file documented as of this encounter Plan of Treatment Not on file documented as of this encounter Visit Diagnoses Diagnosis Multiple sclerosis (CMS/HCC)- Primary Multiple sclerosis documented in this encounter Care Teams Telesales Team Leader Relationship Specialty Start Date End Date Rod Buckner PA-C PCP - General Physician Digital Forensics Investigator 10/05/20 documented as of this encounter
--- OUTSIDE RECORDS SUMMARY | 2025-01-06 11:43 | XMS_ITS | Encounter Summary ---
Author Organization [facility] Address [address] [place] [address] Care Team Providers Care Pilot Name Role Phone Rod Buckner PA-C Primary Care Provide r Encounter Details Date Type Department Care Team (Late st Contact Info) Description 02/08/2004 Outpatient Historical Division of Neurology [address] [address] Armida Mendez MD [address] [facility] [address] [place] [address] Social History Tobacco Use Types Packs/Day Years Used Date Smoking Tobacco: Never Assessed Comments Unknown Sex and Gender Information Value Date Recorded Sex Assigned at Not on file Legal Sex Female 5:09 AM MORTGAGE PROCESSING CLERK Gender Identity Not on file Sexual Orientation Not on file documented as of this encounter Plan of Treatment Not on file documented as of this encounter Visit Diagnoses Not on filedocumented in this encounter Care Teams Pilot Relationship Specialty Start Date End Date Rod Buckner PA-C PCP - General Physician Refrigerating Oiler 10/05/20 documented as of this encounter
--- OUTSIDE RECORDS SUMMARY | 2025-01-06 11:43 | XMS_ITS | Encounter Summary ---
Author Organization [facility] Address [address] [place] [address] Care Team Providers Care Flattening Press Operator Name Role Phone Rod Buckner PA-C Primary Care Provide r Encounter Details Date Type Department Care Team (Latest Contact Info) Description 04/03/2008 Outpatient Historical [facility] [address] [place] [address] Armida Mendez MD [address] [facility] [address] [place] [address] Multiple Sclerosis (CMS/HCC) (Primary Dx) Social History Tobacco Use Types Packs/Day Years Used Date Smoking Tobacco: Never Assessed Comments Unknown Sex and Gender Information Value Date Recorded Sex Assigned at Not on file Legal Sex Female 5:09 AM INTERNAL SPECIALIST Gender Identity Not on file Sexual Orientation Not on file documented as of this encounter Plan of Treatment Not on file documented as of this encounter Visit Diagnoses Diagnosis Multiple sclerosis (CMS/HCC)- Primary Multiple sclerosis documented in this encounter Care Teams Flattening Press Operator Relationship Specialty Start Date End Date Rod Buckner PA-C PCP - General Physician National Accounts Sales 10/05/20 documented as of this encounter
--- OUTSIDE RECORDS SUMMARY | 2025-01-06 11:43 | XMS_ITS | Encounter Summary ---
Author Organization [facility] Address [address] [place] [address] Care Team Providers Care Linen Room Supervisor Name Role Phone Rod Buckner PA-C Primary Care Provide r Encounter Details Date Type Department Care Team (Latest Contact Info) Description 09/14/2008 Outpatient Historical [facility] [address] [place] [address] Armida Mendez MD [address] [facility] [address] [place] [address] Multiple Sclerosis (CMS/HCC) (Primary Dx) Social History Tobacco Use Types Packs/Day Years Used Date Smoking Tobacco: Never Assessed Comments Unknown Sex and Gender Information Value Date Recorded Sex Assigned at Not on file Legal Sex Female 5:09 AM SOFTWARE REQUIREMENTS ENGINEER Gender Identity Not on file Sexual Orientation Not on file documented as of this encounter Plan of Treatment Not on file documented as of this encounter Visit Diagnoses Diagnosis Multiple sclerosis (CMS/HCC)- Primary Multiple sclerosis documented in this encounter Care Teams Linen Room Supervisor Relationship Specialty Start Date End Date Rod Buckner PA-C PCP - General Physician Supervisor Cereal 10/05/20 documented as of this encounter
--- OUTSIDE RECORDS SUMMARY | 2025-01-06 11:43 | XMS_ITS | Encounter Summary ---
Author Organization [facility] Address [address] [place] [address] Care Team Providers Care Metal Storage Worker Name Role Phone Rod Buckner PA-C Primary Care Provide r Encounter Details Date Type Department Care Team (Late st Contact Info) Description 05/22/2007 Outpatient Historical [facility] MRI DEPT Armida Mendez MD [address] [facility] [address] [place] [id number] Multiple Sclerosis (CMS/HCC) (Primary Dx) Social History Tobacco Use Types Packs/Day Years Used Date Smoking Tobacco: Never Assessed Comments Unknown Sex and Gender Information Value Date Recorded Sex Assigned at Not on file Legal Sex Female 5:09 AM SILK SCREEN PRINTER MACHINE Gender Identity Not on file Sexual Orientation Not on file documented as of this encounter Plan of Treatment Not on file documented as of this encounter Visit Diagnoses Diagnosis Multiple sclerosis (CMS/HCC)- Primary Multiple sclerosis documented in this encounter Care Teams Metal Storage Worker Relationship Specialty Start Date End Date Rod Buckner PA-C PCP - General Physician Head Sawyer Automatic 10/05/20 documented as of this encounter
--- OUTSIDE RECORDS SUMMARY | 2025-01-06 11:43 | XMS_ITS | Clinical Summary ---
Author Organization [address] Address [address] [place] [address] Care Team Providers Care Hadoop Software Engineer Name Role Phone Rod Buckner Primary Care Provider Gail Wyatt MD Unavailable [phone] Allergies Active Allergy Reactions Criticality Noted Date [...] Camphor-Methyl Salicylate-Soap Nausea And Vomiting Low 02/04/2017 Dellrose Oil Nausea And Vomiting Medium 01/28/2017 Cefuroxime [...] Neomycin Unknown Medium 06/12/2015 Other reaction(s): Unknown Peufhbbl-Ejettmgiz-Wzqnhv ine Rash Medium 01/28/2017 Nitrate Analogues Unknown [...] 200-62.5-25 mcg inhaler 1 puff daily 12/02/19 25 Active Active Problems Problem Noted Date Diagnosed Date Asthma in adult, mild persistent, uncomplicated 11/08/2024 Chronic bronchitis, unspecified chronic bronchit is type 04/01/2024 rn long term care (current) use of aromatase inhibitors 08/15/2022 Acquired absence of both breasts 02/07/2021 Malignant neoplasm of breast 02/07/2021 Cancer Staging:Clinical:Stage IA(cT1b, cN0(sn), cM0, G1, ER+, DE+, HER2-) - Signed by Gail Wyatt MD [...] Tamsulosin Assessment & Plan (12/08/2019 10:21 AM SPRING COILING MACHINE SETTER): Desipramine Tamsulosin Assessment & Plan (05/24/2019 7:33 [...] discussed. Assessment & Plan (12/08/2019 10:20 AM SPRING COILING MACHINE SETTER): Continue Emgality monthly Continue Botox Should not [...] depression Assessment & Plan (12/08/2019 10:36 AM SPRING COILING MACHINE SETTER): Continue following with Dr. 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 She received her 1st [employer] COVID-19 vaccine on January 29, 2021. Baclofen [...] discussed. Assessment & Plan (12/08/2019 10:31 AM SPRING COILING MACHINE SETTER): Discussed the option of oral medication due to lipoatrophy. I told her she should not inject in those areas and that the medication maybe less effective is she is injecting in non-approved sites. Patient declines talk of oral medication options. Continue Copaxone 20mg daily per patient preference Continue exercise Discussed weight loss and nutrition. Will also provide her with Toya Valladares GUN NUMBERER phone number Follow up with Dr. Brennan [...] T1bN0(i-)M0, stage IA. ER pos 100% (strong), DE pos 100% (strong), Her-2 neg (0 on [...] angina 09/11/2011 024 SOB (shortness of breath) Encounters Date Type Department Care Team Description 12/13/2024 Documentation [facility] Oncology [address] [place] [address] Vero Stokes RN 12/08/2024 11:50 AM SPRING COILING MACHINE SETTER - 12/08/2024 11:59 PM SPRING COILING MACHINE SETTER Hospital Encounter [facility] - Breast Imaging [address] [facility] [facility] [address] [place] [address] History of bilateral mastectomy Discharge Disposition: Discharge to home or self care 12/08/2024 10:45 AM SPRING COILING MACHINE SETTER Office Visit [facility] Surgery [address] Floor [address] [place] [address] Gail Ramos MD PhD Mass of right chest wall (Primary Dx); Encounter for follow-up surveillance of breast cancer; History of bilateral mastectomy; CHEK2-related breast cancer (HCC); Hx of lymph node excision; History of left breast cancer 12/08/2024 Telephone [facility] [address] [place] [phone] Antony Brennan MD 12/05/2024 Telephone [facility] Surgery [facility] [facility] Floor [address] [place] [phone] Elisa Villarreal MD 11/11/2024 Telephone [facility] [address] [place] [phone] Shannon Lynn RPh 11/08/2024 11:30 AM SPRING COILING MACHINE SETTER Office Visit [facility] Pulmonary [address] [facility] Floor [address] [place] [phone] Milan Valencia MD Asthma in adult, mild persistent, uncomplicated (Primary Dx); Seasonal allergies; SOB (shortness of breath) 11/08/2024 10:26 AM SPRING COILING MACHINE SETTER - 11/08/2024 11:59 PM SPRING COILING MACHINE SETTER Hospital Encounter [facility] PFT Lab [facility] [facility] Floor [address], [address] [place] [phone] Asthma in adult, mild persistent, uncomplicated Discharge Disposition: Discharge to home or self care from Last 3 Months Immunizations Name Administration Dates Next Due H1N1 [...] Unspecified 03/12/2006 Tdap 11/09/2012,10/30/2012 ZOSTER LIVE 09/09/2013 Surgical History Surgery Date Site/Laterality Comments OTHER SURGICAL HISTORY see scanned list APPENDECTOMY Appendectomy TONSILLECTOMY Tonsillectomy OTHER SURGICAL HISTORY Removal of fatty tumor in arm BLADDER SURGERY Bladder surgery OTHER SURGICAL HISTORY D&C x2 FOOT SURGERY Foot surgery HYSTERECTOMY Hysterectomy HEMORRHOID SURGERY Hemorroidectomy ORAL SURGERY Oral surgery NASAL SEPTUM SURGERY Septoplasty OTHER SURGICAL HISTORY EGD w botox injections BREAST BIOPSY Left Breast biopsy SINUS SURGERY Sinus surgery ESOPHAGOGASTRODUODENOSCOPY 12/01/2018 with throat dilation w/balloon ESOPHAGOGASTRODUODENOSCOPY 07/27/2024 Medical History Medical History Date Comments Hx Other Medical Barretts esoph. Hx Other Medical esophageal spas m Gastroesophageal reflux disease GERD Adiposity Obesity Congestive heart failure (CM S/HCC) (HCC) Congestive heart failure Anxiety disorder Anxiety Multiple sclerosis (HCC) 05/31/2013 MS; Com ments: [facility] 08/13/2015 - Rhinitis Rhinitis; Commen ts: [facility] 08/13/2015 - Hypothyroidism Hypothyroidism; Comments: [facility] 08/13/2015 - Depression Depression Hx Other Medical 04/11/2015 EGD; Comments: [facility] 10/23/2015 - Asthma Asthma Vertigo Vertigo; Comment s: [facility] 10/15/2016 - Hx Other Medical Migraines; Comm ents: [facility] 10/15/2016 - Hypertension Heart disease Headache Sleep apnea Diarrhea Acid reflux Wears glasses Kidney stone Fatigue 10/23/2015 Other fatigue Other fatigue Abnormal vision 04/07/2016 Vision abnormali ty Vision abnormality Vision abnormality Persistent insomnia 08/24/2015 Persistent d isorder of initiating or maintaining sleep Persistent disorder of initiating or maintaining sleep Treatment given 08/24/2015 Insufficient carmella atment with nasal CPAP Hypersomnia 08/24/2015 Hypersomnia due to medical condition Repetitive intrusions of sleep 08/24/2015 R epetitive intrusions of sleep H/O: heart disorder 08/24/2015 Hx of conges tive heart failure Class 2 obesity due to exces s calories with serious comorbidity and body mass index (BMI) of 39.0 to 39.9 in adult 09/15/2017 Encounter for long-term (cur rent) use of antibiotics 11/17/2017 Facial pain, atypical 05/19/2018 Other acute recurrent sinusitis 02/04/2019 Vitamin D deficiency 03/01/2019 Last Assessment & Plan: Check 25 [place] vit D Adjust dose of Ergocalciferol accordingly Last Assessment & Plan: Check 25 OH vit D Adjust dose of Ergocalciferol accordingly Skin abrasion 09/29/2018 Peripheral edema 08/18/2018 Hormone replacement therapy 09/29/2018 History of colon polyps 11/10/2019 Dysphagia 11/10/2019 Abdominal cramping 02/22/2019 Intolerance of continuous po sitive airway pressure (CPAP) ventilation 11/10/2019 Adult BMI 38.0-38.9 kg/sq m 11/10/2019 Elevated blood pressure reading 11/10/2019 Increased risk of breast cancer 11/11/2019 Functional diarrhea 01/11/2020 History of left breast cancer 03/14/2021 Unknown and unspecified caus es of morbidity 01/30/2014 Formatting of this note migh t be different from the original. Overview: Migraines SOB (shortness of breath) Osteopenia of multiple sites 10/14/2023 Microvascular angina (HCC) 09/11/2011 Edema 09/11/2011 Acute recurrent maxillary sinusitis Urinary retention Posttraumatic stress disorder PT SD (post-traumatic stress disorder) Anxiety and depression Last Assessment & Plan: Continue following with Dr. Oviedo PTSD (pos Tobacco dependence syndrome Family History Medical History Relation Name Comments Breast cancer Cousin Lung cancer Father Breast cancer Mother Lung cancer Mother Other Other No family histo ry of Multiple sclerosis; Relation Name Status Comments Cousin Father Mother Other Social History Tobacco Use Types Packs/Day Years [...] Frequency of Binge Drinking Not on file 0501/2024 PHQ-2 Answer Date Recorded PHQ-2 Score 0 07/22/2019 Comments Unknown Sex and Gender Information Value Date Recorded Sex Assigned at Not on file Legal Sex Female 7:38 PM SPRING COILING MACHINE SETTER Gender Identity Female 06/29/2020 2:02 PM CDT Sexual Orientation Not on file Obstetrics History Last Filed Vital Signs Vital Sign Reading Time Taken Comments Blood Pressure 144/78 12/08/2024 11:14 AM SPRING COILING MACHINE SETTER Pulse 90 12/08/2024 11:14 AM SPRING COILING MACHINE SETTER Temperature 36.6 C (97.9 F) 12/08/2024 11:14 AM SPRING COILING MACHINE SETTER Respiratory Rate 20 12/08/2024 11:1 4 AM SPRING COILING MACHINE SETTER Oxygen Saturation 96% 12/08/2024 11: 14 AM SPRING COILING MACHINE SETTER Inhaled Oxygen Concentration - - Weight 108.2 kg (238 lb 9.6 oz) 025 11:14 AM SPRING COILING MACHINE SETTER Height 160 cm (5' 3 ) 12/08/2024 11:14 AM SPRING COILING MACHINE SETTER Body Mass Index 42.27 12/08/2024 11:14 AM SPRING COILING MACHINE SETTER Plan of Treatment Health Maintenance Due Date Last Done Comments Breast Cancer Screening-Mammogram 1960 Colon Cancer Screening-Colonoscopy 1960 Fall Risk Assessment 1960 Zoster Vaccine (1 of 2) 11/04/2013 09/09/2013 Depression Screening 03/01/2020 03/01/2019 DTaP/Tdap/Td Vaccine (3 - Td or Tdap) 11/09/2022 11/09/2012, 10/30/2012, 03/12/2006, Additional history exists Well Visit 65+ 2023 Covid-19 Vaccine (4 - 2023-2 5 season) 2024 09/20/2021, 02/26/2021, 01/29/2021 Influenza Vaccine (#1) 2024 , 08/20/2020, 09/07/2019, Additional history exists Osteoporosis Screening-Bone Density Scan 05/25/2025 05/25/2023, 05/22/2021 Hepatitis B Screening Completed 03/12/1998, 998 Hepatitis C Screening Completed 12/22/2018 Pneumococcal vaccine 65+ Completed 022, 10/25/2019, 09/09/2019, Additional history exists Procedures Procedure Name Priority Date/Time Associated Diagnosis Comments US CHEST BREAST RELATED Schedule Routine, Read Routine (OP Routine) 12/08/2024 12:36 PM SPRING COILING MACHINE SETTER History of bilateral mastectomy PULMONARY FUNCTION TEST (PFT) Routine 11/08/2024 11:14 AM SPRING COILING MACHINE SETTER Asthma in adult, mild persistent, uncomplicated DEXA AXIAL SKELETON BONE DENSITY 1 OR MORE SITES Schedule Routine, Read Routine (OP Routine) 05/25/2023 10:54 AM CDT Malignant neoplasm of upper-outer quadrant of left breast in female, estrogen receptor positive (HCC) USP (current) use of aromatase inhibitors HEPATITIS PANEL, ACUTE Routine 12/22/2018 1:58 PM SPRING COILING MACHINE SETTER from Last 3 Months or Most Recently Relevant to Health Maintenance Results * US Chest Breast Related (12/08/2024 12:36 PM SPRING COILING MACHINE SETTER) Anatomical Region Laterality Modality Chest N/A Ultrasound 12/08/2024 12:3 7 PM SPRING COILING MACHINE SETTER Impressions 12/08/2024 12:37 PM SPRING COILING MACHINE SETTER No suspicious abnormality in the area of palpable concern. OVERALL FINAL ASSESSMENT: BI-RADS Category 1: Negative. RECOMMENDATION: Continued clinical follow-up is recommended. Appropriate clinical management is recommended. Negative imaging does not negate the need of a biopsy if high clinical suspicion exists, and a biopsy under palpation may be performed. Electronically signed by: Rivka Rizo M.D. Narrative 12/08/2024 12:37 PM SPRING COILING MACHINE SETTER EXAMINATION: US CHEST BREAST RELATED HISTORY: 64-year-old female status post mastectomy with the right chest wall lump. COMPARISON: None TECHNIQUE: Directed ultrasound evaluation of the RIGHT breast was performed by a relocation specialist. ULTRASOUND FINDINGS: Area of palpable concern, in the right chest wall, there is no suspicious cystic or solid mass. Procedure Note Rivka Rizo MD - 12/08/2024 EXAMINATION: US CHEST BREAST RELATED HISTORY: 64-year-old female status post mastectomy with the right chest wall lump. COMPARISON: None TECHNIQUE: Directed ultrasound evaluation of the RIGHT breast was performed by a relocation specialist. ULTRASOUND FINDINGS: Area of palpable concern, in [...] performed. Electronically signed by: Rivka Rizo M.D. us Gail Ramos MD PhD IMG MAMMO PROCEDURES Final Result * Pulmonary Function Test - (11/08/2024 11:14 AM SPRING COILING MACHINE SETTER) FVC PRE 2.50 L [facility] FVC %PRE PRED 90 % [facility] FEV1 PRE 1.98 L [facility] FEV1 %PRE PRED 91 % [facility] FEV1/FVC PRE 79.0 % [facility] Anatomical Region Laterality Modality PFT 11/08/2024 10:2 9 AM SPRING COILING MACHINE SETTER Narrative 11/08/2024 1:44 PM SPRING COILING MACHINE SETTER Table formatting from the original result was not included. [facility] Division of Pulmonary & Critical Care Medicine [address] [place] [address]; [facility]; [place] [address]; [phone] Pulmonary Function Laboratory Pulmonary Stress Test Simple/Oxygen [...] Work [distance (m) x body wt (kg)]: 77626 kg.m (normal >60,000kg.m) Oxygen required to maintain [...] with the written final report. PFT performed at:->[facility] Adult PFT Lab- [id number] Procedure:->Spirometry Procedure:->Oxygen Assessment [...] and %HbO2 is age dependent. However, the [facility] Pulmonary Function Laboratory defines hypoxemia as a PaO2 <56 mm Hg or a %HbO2 <89%. Cheyanne Davis GUN NUMBERER PFT ORDERABLES Final Result * Dexa Axial Skeleton Bone Density 1 or 2 Site (05/25/2023 10:54 AM CDT) Anatomical Region Laterality Modality Body N/A Radiographic Ynes ging Narrative 05/27/2023 3:40 PM CDT Patient Name: Eugenia Pinzon Date of : 1960 Date of scan: 05/25/2023 Bone mineral density was performed on a [employer] Discovery Densitometer. Based on machine cross-calibration and [...] mineral density scan were prepared by Dayanna Pavon)(Mikhail)() CBDT who is accredited by the International Society of Clinical Densitometry. The overall patient assessment and scan interpretation were performed by Anibal Blank MD who is certified by the International Society of Clinical Densitometry. [id number] Gail Wyatt MD [facility] DXA PROCEDURES F inal Result * Hepatitis panel, acute (12/22/2018 1:58 PM SPRING COILING MACHINE SETTER) Hep A IgM NON-REACTIVE NON-REAC TIVE [facility] [place] Comment [facility] [place] Comment: WE RECEIVED YOUR HANDWRITTEN TEST ORDER AND PERFORMED AN ACUTE HEPATITIS PANEL. IF THIS IS NOT WHAT YOU INTENDED TO ORDER, PLEASE CONTACT YOUR LOCAL CHIEF CONTROLLER STATION IMMEDIATELY SO THAT WE CAN ADJUST OUR [...] INTENDED TO ORDER, PLEASE CONTACT YOUR LOCAL CHIEF CONTROLLER STATION IMMEDIATELY SO THAT WE CAN ADJUST OUR BILLING APPROPRIATELY. YOU MAY ALSO INQUIRE ABOUT ALTERNATIVE OR ADDITIONAL TESTING. Hep B core IgM NON-REACTIVE NON-REAC TIVE [facility] [place] [facility] [place] Comment: WE RECEIVED YOUR HANDWRITTEN TEST ORDER AND PERFORMED AN ACUTE HEPATITIS PANEL. IF THIS IS NOT WHAT YOU INTENDED TO ORDER, PLEASE CONTACT YOUR LOCAL CHIEF CONTROLLER STATION IMMEDIATELY SO THAT WE CAN ADJUST OUR [...] INTENDED TO ORDER, PLEASE CONTACT YOUR LOCAL CHIEF CONTROLLER STATION IMMEDIATELY SO THAT WE CAN ADJUST OUR BILLING APPROPRIATELY. YOU MAY ALSO INQUIRE ABOUT ALTERNATIVE OR ADDITIONAL TESTING. 12/22/2018 1:58 PM SPRING COILING MACHINE SETTER 12/22/2018 2:01 PM SPRING COILING MACHINE SETTER Narrative Resulting Agency Comment Performing Organization Information: Site ID: [id number] Name: [facility] Address: [address] [address] Director: Amandeep Suárez D.O., MPH us Antony Brennan MD LAB MICROBIOLOGY - GENERAL OR DERABLES Final Result [facility]ORD[facility] DUNN Javan KELIN KELIN [employer] from Last 3 Months or Most Recently Relevant to Health Maintenance Insurance MEDICARE SOLUTIONS [facility] Address: [address] [address] [place] [address] MEDICARE CYP Design [facility] Address: [address] [address] [place] [address] Care Teams Hadoop Software Engineer Relationship Specialty Start Date End Date Rod Buckner PA [address] [facility] [address] [place] [address] PCP - General Physician Wheel Cleaner 02/15/19 Gail Wyatt MD [address] [place] [address] Medical Oncologist/Oyster Harvester Medical Oncology 07/23/22
--- OUTSIDE RECORDS SUMMARY | 2025-01-06 11:43 | XMS_ITS | Clinical Summary ---
Author Organization [facility] Address [address] [place] [address] Care Team Providers Care Ambulance Attendant Name Role Phone Rod Buckner PA-C Primary Care Provide r Zuly Miller MD Unavailable [phone] Source Comments [facility],non-owned Affiliates and Associated Physician Practices is amultiple site organization consisting of ambulatory clinics and hospital sitesin [place], [place], [place] and [place]. This disclosure is being madepursuant to the Care Everywhere program and may not contain all information available regarding this patient. Last updated 18.[facility] Allergies Active Allergy Reactions Criticality Noted Date Comments Amphetamine-Dextroampheta mine Palpitations Medium 01/28/2017 Adhesive Sensitivity Rash Medium 11/10/2011 Allergy Palpitations Medium 01/28/2017 Dermolin Nausea and/or Vomiting Low 02/04/2017 Allyl Isothiocyanate Nausea and/or Vomiting Low 02/04/2017 Pgowttzf-Ktsdiztgh-Hatxmm ine Rash Medium 01/28/2017 Armodafinil Unknown High 06/12/2015 Other reaction(s): Neuropathy Bacitracin Unknown Low 02/11/2019 [place] Oil Nausea and/or Vomiting,Unknown Medium 11/10/2011 Cefuroxime [...] fluticasone propionate (FLONASE) 50 MCG/ACT nasal spray Honaker 1 (one) spray into each nostril 2 times daily Active Tiotropium Boston-Olodatero l 2.5-2.5 MCG/ACT Inhale 1 puff by [...] by mouth once daily Active Probiotic Product (Truzip PO)Indications:Dy sphagia,Dysphagia , unspecified type,Adenomatous polyp of [...] not taking.Reported on 07/27/2024 Cholecalciferol 1.25 MG (59619 UT) Take 50,000 Units by mouth Active tamsulosin (FLOMAX) 0.4 MG capsule 01/02/2021 Active cetirizine (ZYRTEC) 10 MG tablet Take 1 (one) tablet by mouth once daily 04/10/2021 Active [place]-3 Fatty Acids (fish oil) 1000 MG capsule [...] (DCIS), cN0, cM0, G2, ER: Not Assessed, IL: Not Assessed, HER2: Not Assessed) - Signed by Meghana Zapata MD on 09/29/2021 Pathologic stage from 09/29/2021:Stage 0(pTis (DCIS), cN0, cM0, G2, ER: Not Assessed, IL: Not Assessed, HER2: Not Assessed) - Signed [...] from 07/18/2020:Stage IA(cT1b, cN0, cM0, G1, ER+, IL+, HER2-) - Signed by Meghana Zapata MD on 09/29/2021 Pathologic stage from 07/18/2020:Stage IA(pT1b, pN0(sn), cM0, G1, ER+, IL+, HER2- ) - Signed by Meghana Zapata MD on 09/29/2021 Overview (09/29/2021): Left, upper outer, 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 09/11/2011 Essential [...] Resolved Date Functional diarrhea 01/11/2020 04/24/20 21 Encounters Date Type Department Care Team Description 01/04/2025 10:30 AM ASSOCIATE PARTNER - 01/04/2025 11:15 AM ASSOCIATE PARTNER Surgery [facility] [address] [place] [address] Janeth Foreman MD EGD w/ palagiri--miralax prep--arrive 90min early 01/04/2025 9:55 AM ASSOCIATE PARTNER Anesthesia Event [facility] [address] [place] [address] Neel Lopez MD Heath, Kayla D, Anes Asst 01/04/2025 8:44 AM ASSOCIATE PARTNER - 01/04/2025 12:02 PM ASSOCIATE PARTNER Hospital Encounter [facility] [address] [place] [address] Janeth Foreman MD Surgery General Discharge Disposition: Home or Self Care 01/04/2025 Travel 12/30/2024 Patient Outreach [facility] [address] [place] [address] Yuni Orozco RN 12/07/2024 Orders Only [facility] [address] [place] [address] Yuni Orozco, RN from Last 3 Months Immunizations Name Administration Dates Next Due Covid Pfizer primary monoval ent 12+ yr 0.3mL Purple cap 09/20/2021,02/26/2021,01/29/2021 FLU VACCINE TRI IIV3 SPLIT P F IM (FLUVIRIN) 11/07/2013 HEP B VACCINE, ADULT 3 DOSE 03/12/1998, 8 INFLUENZA A K1I9-66 VACCINE 08/30/2013 INFLUENZA VACCINE 09/20/2021,10/13/2014 INFLUENZA VACCINE, HIGH-DOSE , QUADR. (FLUZONE HIGH-DOSE QUADRIVALENT; 65Y+), 0.7 ML (HD-IIV4) 08/26/2019,08/28/2018 INFLUENZA VACCINE, QUADR. (F LUZONE; FLULAVAL; FLUARIX; AFLURIA QUADRIVALENT; 6MO+), 0.5 ML (IIV4) 08/20/2020 SHANNAN VACCINE QUAD LAIV4 PF NASAL 09/07/2019,2016,09/04/2015 PNEUMOCOCCAL PPSV23 10/25/2019, 2,06/07/2007,2001 Pneumococcal Pcv13 Conj 09/09/2019,12/09/2017, TD VACCINE 03/12/2006 TDAP (7yrs+) 10/30/2012 ZOSTER VACCINE, LIVE 09/09/2013 Family History Medical History Relation Name Comments Cancer - Colon Father Cancer - Lung Father Cancer - Breast Mother Relation Name Status Comments Father Mother Social [...] Comments Blood Pressure 154/92 01/04/2025 11:30 AM ASSOCIATE PARTNER Pulse 84 01/04/2025 11:30 AM ASSOCIATE PARTNER Temperature 36.9 C (98.5 F) 01/04/2025 8:58 AM ASSOCIATE PARTNER Respiratory Rate 26 01/04/2025 11:3 0 AM ASSOCIATE PARTNER Oxygen Saturation 99% 01/04/2025 11: 30 AM ASSOCIATE PARTNER Inhaled Oxygen Concentration 21% 07/06/2020 2 :25 PM CDT Weight 107.4 kg (236 lb 11.2 oz) 01/04/2025 8:58 AM ASSOCIATE PARTNER Height 160 cm (5' 3 ) 01/04/2025 8:58 AM ASSOCIATE PARTNER Body Mass Index 41.93 01/04/2025 8:58 AM ASSOCIATE PARTNER Plan of Treatment Upcoming Encounters Date Type Department Care Team (Late st Contact Info) Description 02/08/2025 10:30 AM CDT Office Visit [facility] - [address] [facility] [place] [address] Isai Leon MD [address] [place] [address] 08/21/2025 11:30 AM CDT Office Visit [facility] - General Surgery [address] [place] [phone] Bebe Faulkner MD [address] [facility] [address] [place] [address] Health Maintenance Due Date Last Done Comments COLOGUARD (AGES 45-75) - COLON CA SCREENING 1960 CT COLONOGRAPHY - COLON CA SCREENING 1960 FIT - COLON CA SCREENING 1960 FLEX SIG - COLON CA SCREENING 1960 HEPATITIS C SCREENING 08/28/1976 HEPATITIS B VACCINE (3 of 3 - 19+ 3-dose series) 07/15/1998 03/12/1998, 01/15/1998 ZOSTER VACCINE (2 of 3) 11/04/2013 09/09/2013 Respiratory Syncytial Virus (RSV) Vaccine Pt: or over 60 yrs (1 - Risk 60-74 years 1-dose series) 2018 MAMMOGRAM 06/12/2022 06/12/2020, 0707/2020, 03/09/2019, Additional history exists DTAP/TDAP/TD VACCINES (3 - Td or Tdap) 10/30/2022 10/30/2012, 03/12/2006 COVID-19 VACCINE ( season) 2024 08/08/2022, 03/06/2022, 09/20/2021, Additional history exists INFLUENZA VACCINE (#1) 2024 , 10/15/2021, 09/20/2021, Additional history exists PNEUMOCOCCAL VACCINE 50+ (3 of 3 - PCV20 or PCV21) 10/25/2024 10/25/2019, 09/09/2019, 12/09/2017, Additional history exists DEPRESSION SCREENING 11/30/2024 MEDICARE AWV CALENDAR YEAR 2024 COLON MONITORING 01/04/2027 01/04/2025, , 01/27/2024, Additional history exists Colorectal Cancer Screening 01/04/2027 SCREENING FOR DIABETES 08/17/2027 , 02/17/2024, 04/06/2023, Additional history exists COLONOSCOPY - COLON CA SCREENING 01/04/2035 01/04/2025, 01/27/2024, 01/27/2024, Additional history exists BONE DENSITY TESTING Completed 05/25/2023, 05/22/20 21 HIB VACCINE Aged Out No longer eligi ble based on patient's age to complete this topic HPV VACCINE Aged Out No longer eligi ble based on patient's age to complete this topic MENINGOCOCCAL (Group B) VACCINE Aged Out No longer eligible based on patient's age to complete this topic MENINGOCOCCAL VACCINE Aged Out No clarisse yaniv eligible based on patient's age to complete this topic Goals Goal Patient Goal Type Associated Problems Recent Progress Patient-Stated? Author Safety General On track( 2:13 PM ASSOCIATE PARTNER) No Ml Livingston RN Note: Expected end date: Ongoing Interventions: Your nurse will assess your risk for falls/injury each visit Use appropriate and safe transfer methods Medication Management General On track( 2:13 PM ASSOCIATE PARTNER) No Ml Livingston RN Note: Expected end date: Ongoing Interventions: Take all medications as prescribed Let your doctor know right away about any changes in your medications Medical Devices Implanted Type Area Food Science Technician Device Identifier Shelf Expiration Date Model / Serial / Lot Mrkr Securmark Brstbio Esthelaero Sys Implanted:Qty: 1 on 06/12/2020 by Maddie Dixon MD at [facility] 10/05/2020 SMARK-ASHWINI / / [id number] Description:titanium biopsy marker Procedures Procedure Name Priority Date/Time Associated Diagnosis Comments ENDOSCOPY, COLON, SCREENING Routine 01/04/2025 10:16 AM ASSOCIATE PARTNER PATHOLOGY TISSUE Routine 01/04/2025 10:1 4 AM ASSOCIATE PARTNER 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 EGD Routine 01/04/2025 9:12 AM ASSOCIATE PARTNER COMPREHENSIVE METABOLIC PANEL Routine 08/17/2024 9:56 AM CDT Malignant neoplasm of upper-outer quadrant of left breast in female, estrogen receptor positive (HCC) MAMMO BILAT DIAGNOSTIC Routine 9:10 AM CDT 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 Increased risk of breast cancer from Last 3 Months or Most Recently Relevant to Health Maintenance Results * ENDOSCOPY, COLON, SCREENING (01/04/2025 10:16 AM ASSOCIATE PARTNER) Report Endoscopy POC Endoscopy Department Report _ [...] bowel preparation was evaluated using the BBPS (Marvin Bowel Preparation Scale) with scores of: Right [...] non-young portions. Procedure Code(s): --- Professional --- 77036, Colonoscopy, flexible; with biopsy, single or multiple Diagnosis Code(s): --- Professional --- Z86.010, Personal history of colonic polyps K57.30, Diverticulosis of large intestine without perforation or abscess without bleeding CPT copyright 2021 [employer] [place] [employer]. All rights reserved. The codes documented in this report are preliminary and upon activity leader review may be revised to meet current compliance requirements. Janeth [facility] breanne 01/04/2025 10:58:05 AM Note Initiated On: 01/04/2025 10:16 AM Number of Addenda: [address] [place] [address] PROVATION 01/04/2025 10:1 6 AM ASSOCIATE PARTNER Janeth Foreman MD GI PROCEDURE ORDE [facility] PROVATION * PATHOLOGY TISSUE (01/04/2025 10:14 AM ASSOCIATE PARTNER) Case Report Surgical Pathology Report Case: [id number] Authorizing Provider: Janeth Foreman MD Collected: 01/04/2025 10:14 AM Ordering Location: [facility] Received: 01/04/2025 12:42 PM Pathologist: Toya Canales MD Specimens: A) - Polyp Gastric, gastric polyps B) - Colon, random colon bx 01/05/2025 12:43 PM [facility] Final Diagnosis Stomach, gastric polyps, biopsy (A): - Fundic gland polyps - No dysplasia Large intestine, random colon, biopsy (B): - No histopathologic abnormality - No lymphocytic or collagenous colitis 01/05/2025 12:43 PM [facility] Microscopic Description and Comment Microscopic examination substantiates the final diagnosis. 01/05/2025 12:43 PM [facility] Clinical History The patient is a 64-year-old woman with dysphagia who presents for follow-up of gastric polyps and high risk colon cancer surveillance; history of CHEK2 mutation and prior gastric adenomatous polyps. Operative procedure/findings: EGD - few gastric polyps, resected and retrieved. Colonoscopy - normal colon, biopsy to rule out microscopic colitis. 01/05/2025 12:43 PM [facility] Gross Description The requisition and [...] in cassette B1. LT 01/05/2025 12:43 PM [facility] Pathologist Location at [facility] 01/05/2025 12:43 PM [facility] Disclaimer The performance characteristics of all immunohistochemical and indirect immunofluorescence stains (if any) cited in this report were determined by the Histopathology Laboratory of [facility]. Some of these tests were developed by [...] the attending (teaching) pathologist. 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 Procedure Code(s): --- Professional --- 09146, Esophagogastroduode noscopy, flexible, transoral; with transendoscopic balloon dilation of esophagus (less than 30 mm diameter) Diagnosis Code(s): --- Professional --- K31.7, Polyp of stomach and duodenum K31.89, Other diseases of stomach and duodenum R13.10, Dysphagia, unspecified CPT copyright 2021 [employer] [place] [employer]. All rights reserved. The codes documented in this report are preliminary and upon activity leader review may be revised to meet current compliance requirements. Janeth Foreman MD ([place]) 01/04/2025 10:24:09 AM Note Initiated On: 01/04/2025 9:12 AM Number of Addenda: [id number] [place] [address] PROVATION 01/04/2025 9:12 AM ASSOCIATE PARTNER Janeth Foreman MD GI PROCEDURE ORDE DEBB[facility] PROVATION * (ABNORMAL) COMPREHENSIVE METABOLIC PANEL (08/17/2024 9:56 AM CDT) BUN 8 7 - 26 mg/dL 08/17/2024 10:45 AM [facility] Creatinine 0.78 0.56 - 0.96 mg/dL 08/17/2024 10:45 AM [facility] Sodium 139 136 - 145 mmol/L 08/17/2024 10:45 AM [facility] Potassium 4.6(H) 3.5 - 4.5 mmol/L 08/17/2024 10:45 AM [facility] Chloride 110(H) 98 - 107 mmol/L 08/17/2024 10:45 AM [facility] CO2 27 22 - 29 mmol/L 08/17/2024 10:45 AM [facility] Glucose 81 70 - 115 mg/dL 08/17/2024 10:45 AM [facility] Calcium 9.4 8.4 - 10.2 mg/dL 08/17/2024 10:45 AM [facility] Protein Total 7.0 6.0 - 8.3 g/dL 08/17/2024 10:45 AM [facility] Albumin 3.5 3.4 - 5.0 g/dL 08/17/2024 10:45 AM [facility] Bilirubin Total 0.4 0.2 - 1.2 mg/dL 08/17/2024 10:45 AM [facility] Alkaline Phosphatase 126 40 - 150 U/L 08/17/2024 10:45 AM [facility] ALT 23 5 - 55 U/L 08/17/2024 10:45 AM [facility] AST 16 5 - 34 U/L 08/17/2024 10:45 AM [facility] Anion Gap 2(L) 6 - 16 08/17/2024 10:45 AM [facility] BUN/Creatinine Ratio 10 7 - 23 08/17/2024 10:45 AM [facility] Osmolality Calculated 285 275 - 295 mOsm/kg 08/17/2024 10:45 AM [facility] Albumin/Globulin Ratio 1.0(L) 1.1 - 2.3 08/17/2024 10:45 AM [facility] eGFR by CKD-EPI 84(L) >=90 mL/min/1.7 3 m2 08/17/2024 10:45 AM [facility] Blood BLOOD SPECIMEN / Unknown Venipuncture / Unknown 08/17/2024 9:56 AM CDT 08/17/2024 10:16 AM CDT Zuly Miller MD [facility] Organization Address City/State/ZIP Co de Phone Number [facility] [address] [place] [address], [place] [phone] * (ABNORMAL) MAMMO BILAT DIAGNOSTIC (06/07/2020 9:10 [...] COMPARISON: Multiple prior mammograms, most recently 2019 [place] imaging HISTORY: 59-year-old female with CHEK 2 [...] increased slightly in size when compared to [facility] imaging ultrasound 08/01/2016. There is no axillary adenopathy. Jennifer Roy MD MAMMO ORDERABLES from Last 3 Months or Most Recently Relevant to Health Maintenance Advance Directives * Full Code (Latest Code Status on File) Date Activated Date Inactivated Comments 09/09/2018 6:14 PM 09/10/2018 6:28 PM Care Teams Ambulance Attendant Relationship Specialty Start Date End Date Rod Buckner PA-C [address] [place] [address] PCP - General 02/18/19 Zuly Miller MD [address] [facility] [address] [place] [address] Hematology and Oncology 02/17/24
--- OUTSIDE RECORDS SUMMARY | 2025-01-06 11:43 | XMS_ITS | Encounter Summary ---
Author Organization [facility] Address [address] [place] [address] Care Team Providers Care Security Attendant Name Role Phone Rod Buckner PA-C Primary Care Provide r Encounter Details Date Type Department Care Team (Late st Contact Info) Description 06/06/2008 Outpatient Historical [facility] ST Sports Rehabilitation [address] [place] [address] Armida Mendez MD [address] [facility] [address] [address] Social History Tobacco Use Types Packs/Day Years Used Date Smoking Tobacco: Never Assessed Comments Unknown Sex and Gender Information Value Date Recorded Sex Assigned at Not on file 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
--- OUTSIDE RECORDS SUMMARY | 2025-01-06 11:43 | XMS_ITS | Encounter Summary ---
Author Organization [facility] Address [address] [place] [address] Care Team Providers Care Small Animal Veterinarian Name Role Phone Rod Buckner PA-C Primary Care Provide r Encounter Details Date Type Department Care Team (Late st Contact Info) Description 05/11/2007 Outpatient Historical Division of Neurology [address] [address] Armida Mendez MD [address] [facility] [address] [place] [address] Social History Tobacco Use Types Packs/Day Years Used Date Smoking Tobacco: Never Assessed Comments Unknown Sex and Gender Information Value Date Recorded Sex Assigned at Not on file 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
--- OUTSIDE RECORDS SUMMARY | 2025-01-06 11:43 | XMS_ITS | Encounter Summary ---
Author Organization [facility] Address [address] [place] [address] Care Team Providers Care Gear Straightener Name Role Phone Rod Buckner PA-C Primary Care Provide r Encounter Details Date Type Department Care Team (Late st Contact Info) Description 05/04/2003 Outpatient Historical Division of Neurology [address] [address] Armida Mendez MD [address] [facility] [address] [place] [address] Social History Tobacco Use Types Packs/Day Years Used Date Smoking Tobacco: Never Assessed Comments Unknown Sex and Gender Information Value Date Recorded Sex Assigned at Not on file Legal Sex Female 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
--- OUTSIDE RECORDS SUMMARY | 2025-01-06 11:43 | XMS_ITS | Encounter Summary ---
Author Organization [facility] Address [address] [place] [address] Care Team Providers Care Die Operator Name Role Phone Rod Buckner PA-C Primary Care Provide r Encounter Details Date Type Department Care Team (Late st Contact Info) Description 10/30/2003 Outpatient Historical Division of Neurology [address] [address] Armida Mendez MD [address] [facility] [address] [place] [address] Social History Tobacco Use Types Packs/Day Years Used Date Smoking Tobacco: Never Assessed Comments Unknown Sex and Gender Information Value Date Recorded Sex Assigned at Not on file Legal Sex Female 5:09 AM ENROLLER Gender Identity Not on file Sexual Orientation Not on file documented as of this encounter Plan of Treatment Not on file documented as of this encounter Visit Diagnoses Not on filedocumented in this encounter Care Teams Die Operator Relationship Specialty Start Date End Date Rod Buckner PA-C PCP - General Physician Master Machinist 10/05/20 documented as of this encounter
--- OUTSIDE RECORDS SUMMARY | 2025-01-06 11:43 | XMS_ITS | Encounter Summary ---
Author Organization [facility] Address [address] [place] [address] Care Team Providers Care Layout Mechanic Name Role Phone Rod Buckner PA-C Primary Care Provide r Encounter Details Date Type Department Care Team (Latest Contact Info) Description 05/05/2008 Outpatient Historical [facility] Sports Rehabilitation [address] [place] [address] Armida Mendez MD [address] [facility] [address] [place] [address] Multiple Sclerosis (CMS/HCC) (Primary Dx) Social History Tobacco Use Types Packs/Day Years Used Date Smoking Tobacco: Never Assessed Comments Unknown Sex and Gender Information Value Date Recorded Sex Assigned at Not on file 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
--- OUTSIDE RECORDS SUMMARY | 2025-01-06 11:44 | XMS_ITS | CONTINUITY OF CARE DOCUMENT ---
Author Name shabnam, shabnam Address Unknown Organization [facility] Address [id number] [place] [address] [address] [place] [address] Phone [phone] Care Team Providers Care Back End Web Developer Name Role Phone Favian Engle MD Unavailable [phone] NICKO GARCIA MD Unavailable NICKO GARCIA MD Unavailable [phone] PROBLEMS Condition Status Date Provider Notes ASTHMA active Nona Poole MULTIPLE SCLEROSIS active Nona Londono dt EDEMA;CONTROLLED WITH LASIX; DOES NOT WANT RUIZ active Favian Engle MD TOBACCO ABUSE active Favian Engle MD HYPERCHOLESTEROLEMIA;DEFERS STATIN active H haris Engle MD CHF;NML BNP 09 active Favian Engle MD OBESITY;DID NOT WANT MEDIFAST active Favian Engle MD CAD;NEG CATH 06, NEG ECHO 08 active Favian Engle MD ECP active Favian Engle MD HTN;LABS PER PRIMARY active Favian Colby SLEEP APNEA:NON COMPLIANT active Favian dwyer MD HYPOTHYROIDISM;ON RX PER PRIMARY active Lasha Engle MD MICROVASCULAR ANGINA;HELPED BY NORVASC active Favian Engle MD ENCOUNTERS Date Type Provider Location Encounter Diag nosis - In-person encounter Office Visit Favian Engle MD [facility] OBESITY;DID NOT WANT MEDIFAST - In-person encounter Office Visit Favian Engle MD [facility] MICROVASCULAR ANGINA;HELPED BY NORVASCHYPOTHYROIDISM ;ON RX PER PRIMARYHTN;LABS PER PRIMARYCAD;NEG CATH 06, NEG ECHO 08OBESITY;DID NOT WANT MEDIFASTCHF;NML BNP 09HYPERCHOLESTEROLEMI A;DEFERS STATINTOBACCO ABUSEEDEMA;CONTROLLED WITH LASIX;DOES NOT WANT RUIZ - In-person encounter Office Visit Favian Engle MD [facility] MICROVASCULAR ANGINA;HELPED BY NIALL APNEA:NON COMPLIANTECP VITAL SIGNS Date Observation Value Provider blood pressure, diastolic, left arm 87 mm [Hg] Zach Foley RN blood pressure, systolic, left arm 127 mm [Hg] Zach Foley RN blood pressure, diastolic, right arm 83 m m[Hg] Zach Foley RN blood pressure, systolic, right arm 133 m m[Hg] Zach Foley RN blood pressure, diastolic 87 mm[Hg] Agustin Foley RN blood pressure, systolic 127 mm[Hg] Zach Foley RN pulse rate 84 /min Zach Foley RN oxygen saturation, oximetry 95 % Zach Foley RN respiratory rate E&M 17 /min Zach clark RN Body Mass Index (Ratio) 37.04 kg/m2 Zach Foley RN weight E&M 215 [lb_av] Zach Foley RN height E&M 64 [in_i] Zach Foley RN weight E&M 220 [lb_av] Zach Foley RN blood pressure, diastolic, left arm 78 mm [Hg] Zach Foley RN blood pressure, systolic, left arm 120 mm [Hg] Zach Foley RN blood pressure, diastolic, right arm 76 m m[Hg] Zach Foley RN blood pressure, systolic, right arm 113 m m[Hg] Zach Foley RN blood pressure, diastolic 78 mm[Hg] Agustin Foley RN blood pressure, systolic 120 mm[Hg] Zach Foley RN pulse rate 85 /min Zach Foley RN oxygen saturation, oximetry 97 % Zach Foley KIERA respiratory rate E&M 18 /min Zach Enrico brittneyterry QURESHI blood pressure, diastolic 79 mm[Hg] Agustin Foley KIERA blood pressure, systolic 127 mm[Hg] Zach Foley KIERA pulse rate 79 /min Zach Foley KIERA respiratory rate E&M 18 /min Zach Enrico brittneyterry RN oxygen saturation, oximetry 97 % Zach Foley KIERA weight E&M 201 [lb_av] Zach Foley RN ALLERGIES Allergy Name Onset Date Reaction Criticality Status MACROLIDE High Criticality active LATEX High Criticality active REGLAN High Criticality active SILVER NITRATE High Criticality acti ve RESULTS Date Observation Value Provider Reference Range Interpretation Location B-type natriuretic peptide 26 pg/mL [facility] <100 Normal alanine aminotransferase (SGPT), serum 26 1/L [facility] 6-40 Normal aspartate aminotransferase (SGOT), serum 21 1/L [facility] 10-35 Normal alkaline phosphatase, serum 80 1/L [facility] 33-130 Normal bilirubin, serum, total 0.3 mg/dL [facility] 0.2-1.2 Normal albumin/globulin ratio, serum 1.6 (calc) [facility] 1.0-2.1 Normal globulins, serum, total 2.4 G/DL (CALC) [facility] 2.2-3.9 Normal albumin, serum 3.9 g/dL [facility] 3.6-5.1 Normal protein, total, serum 6.3 g/dL [facility] 6.2-8.3 Normal calcium, serum 9.1 mg/dL [facility] 8.6-10.2 Normal carbon dioxide, venous blood 27 mmol/L [facility] 21-33 Normal chloride, serum 105 mmol/L [facility] 98-110 Normal potassium, serum 3.8 mmol/L [facility] 3.5-5.3 Normal sodium, serum 141 mmol/L [facility] 135-146 Normal urea nitrogen/creatinine ratio, serum NOT APPLICABLE (calc) [facility] 6-22 Estimated Glomerular Filtration Rate (calc) >60 mL/min/1.73m2 [facility] > OR = 60 Normal creatinine, serum 0.94 mg/dL [facility] 0.50-1.20 Normal urea nitrogen, blood 14 mg/dL [facility] 7-25 Normal blood glucose, random 86 mg/dL [facility] 65-99 Normal cholesterol/HDL ratio, serum, percent 4.1 (calc) [facility] < OR = 5.0 Normal LDL cholesterol, serum 150 MG/DL (CALC) [facility] <130 High HDL cholesterol, serum 56 mg/dL [facility] > OR = 46 Normal cholesterol, serum 232 mg/dL [facility] 125-200 High triglyceride, serum, fasting 128 mg/dL [facility] <150 Normal HISTORY OF MEDICATION USE Medication Status Instructions Dates Provider Indications Com ments NITROSTAT 0.4 MG SUBLINGUAL TABLET SUBLINGUAL active One tab. under tongue as needed. May repeat twice in 10 minutes. Favian Engle MD VENTOLIN HFA AEROSOL SOLUTION active Zach Foley RN FLUCONAZOLE TABLET active 150mg daily Zach Foley RN CITRACAL PLUS ORAL TABLET active 500 international units vit d 630mg calcium 2 tabs twice daily Zach Foley RN B-12 TABLET active 2500 mcg daily Zach Foley RN TH VITAMIN E CAPSULE completed 3 international units 2 tabs three times daily - Favian Engle MD VITAMIN E CAPSULE completed 100mg daily - Favian Engle MD CRANBERRY CAPSULE active 2000mg daily Zach Foley RN METHYLPHENIDATE HCL 20 MG ORAL TABLET active one tab twice daily Zach Foley RN ARICEPT 10 MG ORAL TABLET active one tab. daily Zach Foley RN PRAVACHOL 40 MG ORAL TABLET completed 1 tablet by mouth daily - Favian Engle MD RANEXA 500 MG ORAL TABLET EXTENDED RELEASE 12 HOUR completed ONE TAB. TWICE DAILY - Zach Foley RN PREDNISONE TABLET active taper Mickey Huston TYLENOL EXTRA STRENGTH TABLET active as needed Mickey Carvajalacochirag SUDAFED TABLET active as needed Mickey Huston MAALOX TABLET CHEWABLE active as needed Mickey Huston MECLIZINE HCL 12.5 MG ORAL TABLET active 2 tablets by mouth every 6 hours as needed Mickey Huston TYLENOL WITH CODEINE #3 TABLET active 1-2 every 4-6 hours as needed Mickey Huston TERBUTALINE SULFATE 5 MG ORAL TABLET active 1 puff every 6 hours as needed Mickey Huston PROCTOZONE-HC 2.5 % RECTAL CREAM active apply to affected area as needed Mickey Huston NITROQUICK 0.4 MG SUBL completed as needed - Zach Foley RN ALBUTEROL SULFATE NEBU active 0.83 as needed Mickey Huston METHYLPHENIDATE 10MG active 1 tablet by mouth twice daily as needd Mickey Huston LOMOTIL TABLET active 2.5mg 2 tablets by mouth 4 times daily as needed Mickey Huston IMITREX STAT DOSE completed repeat in 2 hours - Favian Engle MD IMITREX 50 MG ORAL TABLET active 1 tablet by mouth as needed Mickey Huston FLORINAL completed every 4-6 hours - Zach Foley RN COMPAZINE SUP 25MG active 1 tablet by mouth every hours as needed Mickey Huston ALPRAZOLAM 0.25 MG ORAL TABLET active 1 tablet by mouth three times daily Mickey Huston ALBUTEROL AERS active 17gm 2 puffs four times daily Mickey Huston FIBERCON TABLET active 2 tablets by mouth three times daily Mickey Huston GLUCOSAMINE-CHONDR OITIN TABS active 1 tablet by mouth three times daily Mickey Huston VIVELLE 0.1 MG/24HR PTTW active 1 every other day Mickey Huston VITAMIN D 63186 UNIT CAPS active 1 capsule weekly for 8 weeks then 1 every month Mickey Huston SUCRALFATE 1 GM ORAL TABLET active 1 tablet by mouth four times daily Mickey Huston PREVIDENT 56GM active [place] teeth with gel at bedtime Mickey Huston METHYPENIDATE ER 20MG active 1 TABLET BY MOUTH TWICE DAILY Mickey Huston INTAL AERS active 4 puffs twice daily Mickey Huston COPAXONE active 1 injection daily Mickey Manacochirag CELEBREX 200 MG ORAL CAPSULE active 1 tablet by mouth twice daily Mickey Manacochirag BACLOFEN 10 MG ORAL TABLET active 3 tablets by mouth four times daily Mickey Carvajalacochirag TRAZODONE HCL 50 MG ORAL TABLET active 1 tablet byt mouth at bedtime Mickey Carvajalacochirag MULTIVITAMINS ORAL CAPSULE active ONE TAB. DAILY Nona Bradfordt SYNTHROID 200 MCG ORAL TABLET active ONE TAB. DAILY Favian Engle MD SINGULAIR 10 MG ORAL TABLET active 1 tablet by mouth once daily Mickey Manacochirag PROZAC 10 MG ORAL CAPSULE completed ONE TAB. DAILY - Zach Foley RN NEXIUM 40 MG ORAL CAPSULE DELAYED RELEASE active 1 taqblet by mouth twice daily Mickey Manacochirag NORVASC 2.5 MG ORAL TABLET active ONE TAB. DAILY Nona Poole NITROGLYCERIN 0.2 MG/HR TRANSDERMAL PATCH 24 HOUR completed PATCH 1 patch daily - Zach Foley RN KLOR-CON 10 10 MEQ ORAL TABLET EXTENDED RELEASE active 7 tablets by mouth twice daily Favian Engle MD FUROSEMIDE 40 MG ORAL TABLET active 2 tablets by mouth twice daily Mickey Weiacochirag ADVAIR DISKUS 500-50 MCG/DOSE INHALATION AEROSOL POWDER BREATH ACTIVATED active 1 puff twice daily Nona Shalamidt SOCIAL HISTORY Date Observation Value Provider drug use no Zach Foley RN passive cigarette sm kat exposure no Zach Foley RN smoking history, tot al pack/year 60 Favian Engle MD smoking, year quit 1990 Zach stewart RN smoking status former smoker Zach Sanchez social history reviewed E&M reviewed Zach Foley RN quit smoking, stage quit Favian joaquin MD social history reviewed E&M reviewed Zach Foley RN social history E&M Marital Statu s: L kevin with family/friends E thnicity: Zach Foley RN social history reviewed E&M reviewed Zach Foley RN physical exercise, f requency, days per week yes [facility] caffeine use, averag e drinks per day no [facility] alcohol use, average drinks per day none [facility] smoking status Quit [facility] MENTAL STATUS Date Observation Value Provider assessment of judgme nt and insight E&M Alert and oriented to time, place and person. Mood and affect are normal. Zach Foley RN assessment of judgme nt and insight E&M Alert and oriented to time, place and person. Mood and affect are normal. Zach Foley RN assessment of judgme nt and insight E&M Alert and oriented to time, place and person. Mood and affect are normal. Zach Foley RN INSURANCE PROVIDERS Payer name Policy type / Coverage type Ilan red republican [employer] [facility] [employer] [id number] TREATMENT PLAN Date Name Performer routine Favian Engle MD routine : H er updated medication list for this problem includes: Synthroid 200 Mcg Tabs (Levothyroxine sodium) ..... One tab. daily Labs Reviewed: C hol: 232 (12/26/2008) HDL: 56 (12/26/2008) LDL: 150 MG/DL (CALC) (12/26/2008) T (12/26/2008) Favian Engle MD routine : H er updated medication list for this problem includes: Advair Diskus 500-50 Mcg/dose Misc (Fluticasone-salmeterol) ..... 1 puff twice daily Singulair 10 Mg Tabs (Montelukast sodium) ..... 1 tablet by mouth once daily Intal Aers (Cromolyn sodium aers) ..... 4 puffs twice daily Albuterol Aers (Albuterol aers) ..... 17gm 2 puffs four times daily Albuterol Sulfate Nebu (Albuterol sulfate nebu) ..... 0.83 as needed Terbutaline Sulfate 5 Mg Tabs (Terbutaline sulfate) ..... 1 puff every 6 hours as needed Prednisone Tabs (Prednisone tabs) ..... Taper Ventolin Hfa Aers (Albuterol sulfate aers) Pulmonary Functions Reviewed: O 2 sat: 97 (09/11/2011) Favian Engle MD routine : H er updated medication list for this problem includes: Furosemide 40 Mg Tabs (Furosemide) ..... 2 tablets by mouth twice daily Norvasc 2.5 Mg Tabs (Amlodipine besylate) ..... One tab. daily Prior BP: 120/78 (09/11/2011) Labs Reviewed: C reat: 0.94 (12/26/2008) C hol: 232 (12/26/2008) HDL: 56 (12/26/2008) LDL: 150 MG/DL (CALC) (12/26/2008) T (12/26/2008) Favian Engle MD routine : H er updated medication list for this problem includes: Norvasc 2.5 Mg Tabs (Amlodipine besylate) ..... One tab. daily Nitrostat 0.4 Mg Subl (Nitroglycerin) ..... One tab. under tongue as needed. may repeat twice in 10 minutes. BP today: / Prior BP: 120/78 (09/11/2011) C ardiac Cath: EF - 50%. N ormal coronary arteries. N ormal LV systolic function. T he patient may suffer from microvacular CAD. E CP should be considered. [facility] (01/14/2006) C HOL: 232 (12/26/2008) LDL: 150 MG/DL (CALC) (12/26/2008) HDL: 56 (12/26/2008) T (12/26/2008) B UN: 14 (12/26/2008) Creat: 0.94 (12/26/2008) Glucose: 86 (12/26/2008) N a+: 141 (12/26/2008) K+: 3.8 (12/26/2008) Cl: 105 (12/26/2008) Favian Engle MD routine : B P today: / Prior BP: 120/78 (09/11/2011) C HOL: 232 (12/26/2008) LDL: 150 MG/DL (CALC) (12/26/2008) HDL: 56 (12/26/2008) T (12/26/2008) Favian Engle MD routine : H er updated medication list for this problem includes: Furosemide 40 Mg Tabs (Furosemide) ..... 2 tablets by mouth twice daily Norvasc 2.5 Mg Tabs (Amlodipine besylate) ..... One tab. daily Nitrostat 0.4 Mg Subl (Nitroglycerin) ..... One tab. under tongue as needed. may repeat twice in 10 minutes. BP today: / Prior BP: 120/78 (09/11/2011) C ardiac Cath: EF - 50%. N ormal coronary arteries. N ormal LV systolic function. T he patient may suffer from microvacular CAD. E CP should be considered. [facility] (01/14/2006) C HOL: 232 (12/26/2008) LDL: 150 MG/DL (CALC) (12/26/2008) HDL: 56 (12/26/2008) T (12/26/2008) B UN: 14 (12/26/2008) Creat: 0.94 (12/26/2008) Glucose: 86 (12/26/2008) N a+: 141 (12/26/2008) K+: 3.8 (12/26/2008) Cl: 105 (12/26/2008) Favian Engle MD routine Favian Engle MD routine : H er updated medication list for this problem includes: Norvasc 2.5 Mg Tabs (Amlodipine besylate) ..... One tab. daily Nitrostat 0.4 Mg Subl (Nitroglycerin) ..... One tab. under tongue as needed. may repeat twice in 10 minutes. BP today: / Prior BP: 120/78 (09/11/2011) C ardiac Cath: EF - 50%. N ormal coronary arteries. N ormal LV systolic function. T he patient may suffer from microvacular CAD. E CP should be considered. [facility] (01/14/2006) C HOL: 232 (12/26/2008) LDL: 150 MG/DL (CALC) (12/26/2008) HDL: 56 (12/26/2008) T (12/26/2008) B UN: 14 (12/26/2008) Creat: 0.94 (12/26/2008) Glucose: 86 (12/26/2008) N a+: 141 (12/26/2008) K+: 3.8 (12/26/2008) Cl: 105 (12/26/2008) Favian Engle MD routine: O rders: e Prescribe - Check this box if eRx is used (CPT-G8553) Favian Engle MD routine: H er updated medication list for this problem includes: Advair Diskus 500-50 Mcg/dose Misc (Fluticasone-salmeterol) ..... 1 puff twice daily Singulair 10 Mg Tabs (Montelukast sodium) ..... 1 tablet by mouth once daily Intal Aers (Cromolyn sodium aers) ..... 4 puffs twice daily Albuterol Aers (Albuterol aers) ..... 17gm 2 puffs four times daily Albuterol Sulfate Nebu (Albuterol sulfate nebu) ..... 0.83 as needed Terbutaline Sulfate 5 Mg Tabs (Terbutaline sulfate) ..... 1 puff every 6 hours as needed Prednisone Tabs (Prednisone tabs) ..... Taper Ventolin Hfa Aers (Albuterol sulfate aers) Pulmonary Functions Reviewed: O 2 sat: 97 (09/11/2011) Orders: e Prescribe - Check this box if eRx is used ([id number]) Favian Engle MD routine: O rders: e Prescribe - Check this box if eRx is used ([id number]) Favian Engle MD routine: H er updated medication list for this problem includes: Furosemide 40 Mg Tabs (Furosemide) ..... 2 tablets by mouth twice daily Norvasc 2.5 Mg Tabs (Amlodipine besylate) ..... One tab. daily BP today: 120/78 P rior BP: 127/79 (12/14/2008) Labs Reviewed: C reat: 0.94 (12/26/2008) C hol: 232 (12/26/2008) HDL: 56 (12/26/2008) LDL: 150 MG/DL (CALC) (12/26/2008) T (12/26/2008) Orders: e Prescribe - Check this box if eRx is used ([id number]) Favian Engle MD routine: O rders: e Prescribe - Check this box if eRx is used (CPT-G8553) Favian Engle MD routine: B P today: 120/78 Prior BP: 127/79 (12/14/2008) C ardiac Cath: EF - 50%. N ormal coronary arteries. N ormal LV systolic function. T he patient may suffer from microvacular CAD. E CP should be considered. [facility] (01/14/2006) C HOL: 232 (12/26/2008) LDL: 150 MG/DL (CALC) (12/26/2008) HDL: 56 (12/26/2008) T (12/26/2008) B UN: 14 (12/26/2008) Creat: 0.94 (12/26/2008) Glucose: 86 (12/26/2008) N a+: 141 (12/26/2008) K+: 3.8 (12/26/2008) Cl: 105 (12/26/2008) Echocardiogram: EF - 65%. L V chamber size is normal. T race tricuspid regurgitation. [facility] (12/15/2007) Favian Engle MD office visit: H er updated medication list for this problem includes: Synthroid 75 Mcg Tabs (Levothyroxine sodium) ..... One tab. daily Favian Engle MD office visit: H er updated medication list for this problem includes: Nitroglycerin 0.2 Mg/hr Pt24 (Nitroglycerin) ..... Patch 1 patch daily Norvasc 2.5 Mg Tabs (Amlodipine besylate) ..... One tab. daily Nitroquick 0.4 Mg Subl (Nitroglycerin) ..... As needed Ranexa 500 Mg Tb12 (Ranolazine) ..... One tab. twice daily BP today: 127/79 Prior BP: / () C ardiac Cath: EF - 50%. N ormal coronary arteries. N ormal LV systolic function. T he patient may suffer from microvacular CAD. E CP should be considered. [facility] (01/14/2006) Echocardiogram: EF - 65%. L V chamber size is normal. T race tricuspid regurgitation. [facility] (12/15/2007) Favian Engle MD office visit Favian Engle MD office visit: H er updated medication list for this problem includes: Advair Diskus 500-50 Mcg/dose Misc (Fluticasone-salmeterol) ..... 1 puff twice daily Singulair 10 Mg Tabs (Montelukast sodium) ..... 1 tablet by mouth once daily Intal Aers (Cromolyn sodium aers) ..... 4 puffs twice daily Albuterol Aers (Albuterol aers) ..... 17gm 2 puffs four times daily Albuterol Sulfate Nebu (Albuterol sulfate nebu) ..... 0.83 as needed Terbutaline Sulfate 5 Mg Tabs (Terbutaline sulfate) ..... 1 puff every 6 hours as needed Prednisone Tabs (Prednisone tabs) ..... Taper Pulmonary Functions Reviewed: O 2 sat: 97 (12/14/2008) Favian Engle MD office visit: H er updated medication list for this problem includes: Furosemide 40 Mg Tabs (Furosemide) ..... 2 tablets by mouth twice daily Norvasc 2.5 Mg Tabs (Amlodipine besylate) ..... One tab. daily BP today: 127/79 Orders: E KG (CPT-[id number]) Favian Engle MD office visit Favian Engle MD Date Name COMPREHENSIVE METABO LIC PANEL W/EGFR LIPID PANEL B TYPE NATRIURETIC P EPTIDE (BNP) HISTORY OF PROCEDURES Procedure Date Procedure Name Provider Procedure Notes S tatus ePrescribe - Check t his box if eRx is used Favian Engle MD completed EKG Favian Engle MD complete d EKG Favian Engle MD complete d
--- OUTSIDE RECORDS SUMMARY | 2025-01-06 11:44 | XMS_ITS | Encounter Summary ---
Author Organization [facility] Address 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
--- OUTSIDE RECORDS SUMMARY | 2025-01-06 11:44 | XMS_ITS | Encounter Summary ---
Author Organization [facility] Address 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
--- OUTSIDE RECORDS SUMMARY | 2025-01-06 11:44 | XMS_ITS | Encounter Summary ---
Author Organization [facility] Address [address] [place] [address] Care Team Providers Care Firer Electric Locomotive Name Role Phone Rod Buckner PA-C Primary Care Provide r Encounter Details Date Type Department Care Team (Late st Contact Info) Description 05/03/2002 Outpatient Historical Division of Neurology [address] [address] Armida Mendez MD [address] [facility] [address] [place] [address] Social History Tobacco Use Types Packs/Day Years Used Date Smoking Tobacco: Never Assessed Comments Unknown Sex and Gender Information Value Date Recorded Sex Assigned at Not on file 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
--- OUTSIDE RECORDS SUMMARY | 2025-01-06 11:44 | XMS_ITS | Encounter Summary ---
Author Organization [facility] Address 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
--- OUTSIDE RECORDS SUMMARY | 2025-01-06 11:44 | XMS_ITS | Encounter Summary ---
Author Organization [facility] Address [address] [place] [address] Care Team Providers Care Credit Professional Name Role Phone Rod Buckner PA-C Primary Care Provide r Encounter Details Date Type Department Care Team (Latest Contact Info) Description 02/16/2001 Outpatient Historical [facility] Armida Mendez MD [address] [facility] [address] [place] [address] Multiple sclerosis (CMS/HCC) (Primary Dx) Social History Tobacco Use Types Packs/Day Years Used Date Smoking Tobacco: Never Assessed Comments Unknown Sex and Gender Information Value Date Recorded Sex Assigned at Not on file Legal Sex Female 5:09 AM RADIOISOTOPE PRODUCTION OPERATOR Gender Identity Not on file Sexual Orientation Not on file documented as of this encounter Plan of Treatment Not on file documented as of this encounter Visit Diagnoses Diagnosis Multiple sclerosis (CMS/HCC)- Primary Multiple sclerosis documented in this encounter Care Teams Credit Professional Relationship Specialty Start Date End Date Rod Buckner PA-C PCP - General Physician Obedience Trainer 10/05/20 documented as of this encounter
--- OUTSIDE RECORDS SUMMARY | 2025-01-06 11:44 | XMS_ITS | Clinical Summary ---
Author Organization [facility] Address [address] [place] [phone] Phone Care Team Providers Care Canceling Machine Operator Name Role Phone Rod Buckner PA-C Primary Care Provide r Allergies Active Allergy Reactions Criticality Noted Date Comments Adhesive Tape-Silicones Unknown 03/08/2012 Amphetamine Aspartate Unknown Low 06/12/2015 Bacitracin Unknown Low 02/11/2019 Other reaction(s): Unknown Other reaction(s): Unknown [place] Oil Unknown 03/08/2012 Cefuroxime Axetil Unknown 03/08/2012 Coconut Unknown Low 10/05/2020 Dermolin Nausea and Vomiting Low 02/04/2017 Dextroamphetamine-Amphet amine Other (See Comments),Palpitatio ns Medium 01/28/2017 Heart palipations Diphenhydramine Palpitations Medium 01/28/2017 Ergotamine Unknown Medium 02/11/2019 Erythromycin Unknown 03/08/2012 Gabapentin Unknown 03/08/2012 Latex Unknown 03/08/2012 SENSITIVITY TO LATEX Liver Nausea and Vomiting Low 02/04/2017 Other reaction(s): Nausea And Vomiting Meperidine Unknown 03/08/2012 Metoclopramide Unknown 03/08/2012 Metronidazole Unknown 03/08/2012 Mustard Nausea and Vomiting,Unknown Low 02/04/2017 Nalbuphine Unknown 03/08/2012 Neomycin Unknown Medium 06/12/2015 Other reaction(s): Unknown Other reaction(s): Unknown Xwykwtps-Wjnktfgtk-Vgrka stepan Rash Medium 01/28/2017 Nitrate Analogues Unknown Low 10/05/2020 Nitrofurantoin Macrocrystalline Unknown 03/08/2012 Nitrofurantoin Monohyd/M-Cryst Unknown 03/08/2012 Nystatin Rash,Unknown High 01/28/2017 Other reaction(s): Unknown Oxcarbazepine Hives,Swelling High 03/01/2019 Penicillins Unknown 03/08/2012 Pentazocine Nausea and Vomiting,Unknown High 11/30/2009 Other reaction(s): Nausea And Vomiting, Unknown Pentazocine Lactate Unknown 03/08/2012 Polymycin Other (See Comments) Low 06/18/2018 Polymycin eye drops Povidone-Iodine Unknown Low 09/24/2018 Other reaction(s): Unknown Silver Nitrate Unknown 03/08/2012 Medications fluticasone-salme terol (ADVAIR DISKUS) 500-50 mcg/dose Inhalation DsDvIndications:B reast lump Take 1 Puff by inhalation 2 times daily. Active amantadine (SYMMETREL) 100 mg Oral CapIndications:Br east lump Take 100 mg by mouth 2 times daily. Active amLODIPine (NORVASC) 2.5 mg Oral tabletIndications :Breast lump Take 2.5 mg by mouth daily. Active donepezil (ARICEPT) 10 mg Oral tabletIndications :Breast lump Take 10 mg by mouth daily at bedtime. Active baclofen (LIORESAL) 10 mg Oral tabletIndications :Breast lump Take 10 mg by mouth 3 times daily as needed. Active celecoxib (CELEBREX) 200 mg Oral capsuleIndication s:Breast lump Take 200 mg by mouth 2 times daily. Active GLATIRAMER ACETATE (COPAXONE SUBCUT)Indication s:Breast lump Inject by subcutaneous injection. Active cromolyn (INTAL) 20 mg/2 mL Inhalation NebuIndications:B reast lump Take 20 mg by inhalation 4 times daily. Active furosemide (LASIX) 40 mg Oral tabletIndications :Breast lump Take 40 mg by mouth daily. Active potassium chloride (KLOR-CON 10) 10 mEq Oral TbSRIndications:B reast lump Take 10 mEq by mouth every 12 hours. Active methylphenidate ER (METADATE ER) 20 mg Oral tabletIndications :Breast lump Take 20 mg by mouth 2 times daily. Active methylphenidate (RITALIN) 10 mg Oral tabletIndications :Breast lump Take 10 mg by mouth 3 times daily. Active esomeprazole (NEXIUM) 40 mg Oral CpDRIndications:B reast lump Take 40 mg by mouth daily before breakfast. Active SODIUM FLUORIDE (PREVIDENT DT)Indications:Br east lump by dental route. Act chelsea pravastatin (PRAVACHOL) 40 mg Oral tabletIndications :Breast lump Take 40 mg by mouth Daily LATE. Active trospium (SANCTURA) 20 mg Oral TabIndications:Br east lump Take 20 mg by mouth daily. Active montelukast (SINGULAIR) 10 mg Oral tabletIndications :Breast lump Take 10 mg by mouth daily at bedtime. Active sucralfate (CARAFATE) 1 gram Oral tabletIndications :Breast lump Take 1 Gram by mouth 4 times daily. Active levothyroxine (SYNTHROID) 200 mcg Oral tabletIndications :Breast lump Take 200 mcg by mouth daily painter tumbling barrel. Active terbutaline (BRETHINE) 5 mg Oral tabletIndications :Breast lump Take 5 mg by mouth every 6 hours. Active ergocalciferol (VITAMIN D2) 50,000 unit Oral capsuleIndication s:Breast lump Take 50,000 Units by mouth every 7 days. Active estradiol (VIVELLE) 0.1 mg/24 hr Transdermal patchIndications: Breast lump Apply 1 Patch to skin as directed twice weekly. Active multivitamin (DAILY-MOHAMUD) Oral tabletIndications :Breast lump Take 1 Tab by mouth daily. Active Cranberry 1,000 mg Oral CapIndications:Br east lump Take by mouth. 2000 MG DAILY Active GLUCOSAMINE HCL/CHONDRO QUICK A (GLUCOSAMINE-BARRY DROITIN ORAL)Indications: Breast lump Take by mouth 3 times daily. Active CALCIUM POLYCARBOPHIL (FIBERCON ORAL)Indications: Breast lump Take 2 Caps by mouth 3 times daily. Active calcium carb & citrate-vit D3 (CITRACAL + D SLOW RELEASE) 600 mg calcium- 500 unit Oral TbSRIndications:B reast lump Take by mouth 2 times daily. Active Zinc 50 mg Oral CapIndications:Br east lump Take by mouth. Activ e albuterol (PROVENTIL,VENTOL IN) 0.63 mg/3 mL Inhalation NebuIndications:B reast lump Take 0.63 mg by inhalation one time only. Active ALPRAZolam (XANAX) 0.25 mg Oral tabletIndications :Breast lump Take 0.25 mg by mouth nightly as needed. Active prochlorperazine (COMPAZINE) 25 mg Rectal SuppIndications:B reast lump Insert 25 mg by rectum every 12 hours as needed. Active fluconazole (DIFLUCAN) 150 mg Oral tabletIndications :Breast lump Take 150 mg by mouth daily. Active SUMAtriptan (IMITREX) 50 mg Oral tabletIndications :Breast lump Take 50 mg by mouth every 2 hours as needed. may repeat in 2 hours; max dose 200mg in 24 hours Active SUMATRIPTAN SUCCINATE (IMITREX SUBCUT)Indication s:Breast lump Inject by subcutaneous injection. Active diphenoxylate-atr opine (LOMOTIL) 2.5-0.025 mg Oral tabletIndications :Breast lump Take 1 Tab by mouth 4 times daily as needed. Active mupirocin (BACTROBAN) 2 % Topical OintIndications:B reast lump Apply to affected area daily. Active hydrocortisone (PROCTOZONE-HC) 2.5 % Rectal CreaIndications:B reast lump Insert by rectum 2 times daily. Active traZODone (DESYREL) 100 mg Oral tabletIndications :Breast lump Take 100 mg by mouth 1 time daily as needed. PRN Active acetaminophen-cod eine (TYLENOL-CODEINE) 120-12 mg/5 mL Oral ElixIndications:B reast lump Take 10 mL by mouth every 4 hours as needed. Active ALBUTEROL SULFATE (VENTOLIN HFA INHALATION)Indica tions:Breast lump Take by inhalation. Active meclizine (ANTIVERT) 12.5 mg Oral tabletIndications :Breast lump Take 12.5 mg by mouth 3 times daily as needed. Active PSEUDOEPHEDRINE HCL (SUDAFED ORAL)Indications: Breast lump Take by mouth 1 time daily as needed. Active PREDNISONE ORALIndications:B reast lump Take by mouth. 7 WEEK TAPER Active aspirin (ECOTRIN EC) 81 mg Tablet, Delayed Release (E.C.) Active cyanocobalamin (VITAMIN B-12) 500 mcg tablet Activ e dicyclomine (BENTYL) 20 mg tablet Take 1 Tablet by mouth. 08/27/20 18 Active diltiaZEM (DILACOR XR) 120 mg Extended Release capsule Take 120 mg by mouth. Active diltiaZEM (CARDIZEM) 30 mg tablet TAKE 1 TABLET BY MOUTH THREE TIMES A DAY FOR 5 DAYS FOR ESOPHAGEAL SPASMS 09/06/20 18 Active biotin 5,000 mcg Tablet, Rapid Dissolve Take 1 Tablet by mouth. Active cholecalciferol 1,250 mcg (50,000 unit) Capsule Take 50,000 Units by mouth. Active desipramine (NORPRAMIN) 10 mg Tablet Take 15 mg by mouth daily at bedtime. 07/14/20 18 Active Active Problems Patient Care Coordination No te Formatting of this note migh t be different from the original. Primary Care: Charlette De La Vega MD Referring Provider: Carissa Plummer MD [address] [place], [place] [address] [address] Other: Problem Noted Date Diagnosed Date Hormone replacement therapy 09/29/2018 Skin abrasion 09/29/2018 Muscle spasm 07/23/2018 Papilloma of left breast 07/23/2018 MS (multiple sclerosis) Sleep apnea Freiberg's infraction Osteoarthritis Cardiac angina Osteopenia Family History Medical History Relation Name Comments Lung Cancer Father Heart Disease Maternal Grandfather Heart Disease Maternal Grandmother Breast Cancer Mother Lung Cancer Mother Breast Cancer Paternal Cousin mets Relation Name Status Comments Father Maternal Grandfather Maternal Grandmother Mother Paternal Cousin Alive Social History Tobacco Use Types Packs/Day Years Used Date Smoking Tobacco: Former Cigarettes 1990 Smokeless Tobacco: Never Alcohol Use Standard Drinks/Week Comments No 0 (1 standard drink = 0.6 oz pur e alcohol) Comments No Sex and Gender Information Value Date Recorded Sex Assigned at Not on file 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 Gender Identity Not on file Sexual Orientation Not on file Last Filed Vital Signs Vital Sign Reading Time Taken Comments Blood Pressure 115/42 09/29/2018 9:43 AM CDT Pulse 85 09/29/2018 9:43 AM CDT Temperature 36.4 C (97.6 F) 09/29/2018 9:43 AM CDT Respiratory Rate - - Oxygen Saturation 96% 09/29/2018 9:43 AM CDT Inhaled Oxygen Concentration - - Weight 91.4 kg (201 lb 6.4 oz) 09/29/2018 9:43 A M CDT Height 161.3 cm (5' 3.5 ) 09/29/2018 9:43 AM CDT Body Mass Index 35.12 09/29/2018 9:43 AM CDT Plan of Treatment Health Maintenance Due Date Last Done Comments Pre-Diabetes and Diabetes Screening 1960 FIT-DNA Q 3 years 2003 FIT/FOBT Q 1 year 2003 Flex Sig/CT Colonography Q 5 years 2003 ZOSTER VACCINE (2 of 3) 11/04/2013 09/09/2013 RSV VACCINE (60+ or ) (1 - Risk 60-74 years 1-dose series) 2018 BREAST CANCER SCREENING 06/12/2021 06/12/20 20, 06/07/2020, 03/09/2018, Additional history exists DTAP/TDAP/TD VACCINES (2 - T d or Tdap) 10/30/2022 10/30/2012, 03/12/2006 OSTEOPOROSIS SCREENING 2023 INFLUENZA VACCINE (#1) 2024 , 08/20/2020, 09/07/2019, Additional history exists COVID-19 Vaccine (4 - 2023-2 5 season) 2024 09/20/2021, 02/26/2021, 01/29/2021 PNEUMOCOCCAL VACCINE 65+ YEA RS (3 of 3 - PCV20 or PCV21) 10/25/2024 10/25/2019, 09/09/2019, 12/09/2017, Additional history exists Preventative Visit- Commercial 11/30/2024 COLORECTAL SCREENING 01/27/2034 01/27/2024, 01/27/2024, 08/06/2023, Additional history exists Colorectal Cancer Screening 01/27/2034 Procedures Procedure Name Priority Date/Time Associated Diagnosis Comments MAMMO SCRN TO DIAG UNI RIGHT Routine 03/09/2018 from Last 3 Months or Most Recently Relevant to Health Maintenance Results * MAMMO SCRN TO DIAG UNI RIGHT (03/09/2018) Anatomical Region Laterality Modality Breast Other us Abstract Provider MAMMO ORDERABLES Final Result from Last 3 Months or Most Recently Relevant to Health Maintenance Insurance BCBS BLUE ACCESS/TRUE BLUE PPO [employer] Care Teams Canceling Machine Operator Relationship Specialty Start Date End Date Rod Buckner PA-C PCP - General Physician Lead Cargo Mover 10/05/20
--- OUTSIDE RECORDS SUMMARY | 2025-01-06 11:44 | XMS_ITS | Continuity of Care Document ---
Author Organization [facility] Address [address] [place] [address] [address] [place] [address] Phone Care Team Providers Care Emergency Management Director Name Role Phone Moreno BULLARD, Dolly Unavailable Unavailable Allergies, Adverse Reactions, Alerts Substance Reaction Status Criticality PENTAZOCINE LACTATE Active No Infor mation gabapentin Active No Information nitrofurantoin Active No Informatio n NITROFURANTOIN MACROCRYSTALLINE Active No Information silver nitrate Active No Informatio n ROSUVASTATIN CALCIUM Active No Info rmation metronidazole Active No Information METRONIDAZOLE HCL Active No Informa tion METOCLOPRAMIDE HCL Active No Inform ation erythromycin base Active No Informa tion CEFUROXIME AXETIL Active No Informa tion penicillin G Active No Information MEPERIDINE HCL Active No Informatio n WARNIN allergy(ies) could not be collected because the type is not supported. Please contact the source practice for further details. Medications Medication Instructions Dosage Effective Dates (start - stop) Status Comments cromolyn 20 mg/2 mL Neb Solution inhale 2 milliliter (20MG) by nebulization route 4 times every day 20 MG - Active BACLOFEN (unknown strength) take 1 tablet (10MG) by oral route 4 times every day Not Available - Active CELEBREX (unknown strength) take 2 capsule (200MG) by oral route 2 times every day Not Available - Active COPAXONE (unknown strength) inject (20MG) by subcutaneous route every day Not Available - Active FUROSEMIDE (unknown strength) take 1 tablet (20MG) by oral route every day Not Available - Active INTAL (unknown strength) inhale 2 puff (1600MCG) by inhalation route 4 times every day Not Available - Active KLOR-CON (unknown strength) take 1 packet (20MEQ) by oral route 4 times every day dissolved in 4-6 ounces of cold water or juice Not Available Active LAMISIL (unknown strength) take 1 tablet (250MG) by oral route every day Not Available Active METADATE CD (unknown strength) take 1 capsule (10MG) by oral route every day in the morningbefore breakfast Not Available Active NITROGLYCERIN PATCH (unknown strength) apply 1 patch by transdermal route every day remove at night for 10-12 hours Not Available Active NEXIUM (unknown strength) take 1 capsule (20MG) by oral route every day Not Available Active NORVASC (unknown strength) take 1 tablet (10MG) by oral route every day Not Available Active PREVIDENT (unknown strength) Not Available Active PRAVASTATIN SODIUM (unknown strength) take 1 tablet (10MG) by oral route every day Not Available Active PROZAC (unknown strength) take 2 capsule (20MG) by oral route every day Not Available Active RANEXA (unknown strength) take 1 tablet (1000MG) by oral route 2 times every day Not Available Active SINGULAIR (unknown strength) take 1 tablet (10MG) by oral route every day in the evening Not Available Active SUCRALFATE (unknown strength) take 1 tablet (1G) by oral route 4 times every day on an empty stomach 1 hour before meals and at bedtime Not Available Active SYNTHROID (unknown strength) take 1 tablet (100MCG) by oral route every day Not Available - Active VITAMIN D3 (unknown strength) Not Available - Active VIVELLE (unknown strength) apply 1 patch by transdermal route 2 times every week Not Available Active MULTIPLE VITAMINS (unknown strength) take 1 tablet by oral route every day with food Not Available Active GLUCOSAMINE HCL (unknown strength) Not Available - Active FIBERCON (unknown strength) Not Available - Active ALPRAZOLAM (unknown strength) take 1 tablet (0.5MG) by oral route 3 times every day Not Available - Active COMPAZINE (unknown strength) take 1 tablet (10MG) by oral route 3 times every day Not Available - Active FIORINAL (unknown strength) take 1 capsule by oral route every 4 hours as needed not to exceed 6 capsules per 24hrs Not Available - Active IMITREX (unknown strength) take 1 tablet (100MG) by oral route once with fluids as early as possible after the onset of a migraine attack;may repeat after 2 hours if headache returns, not to exceed 200mgin 24hrs Not Available - Active LOMOTIL (unknown strength) take 10 milliliter (5MG) by oral route 4 times every day as needed Not Available - Active METHYLPHENIDATE HCL (unknown strength) take 1 tablet (10MG) by oral route 2 times every day Not Available - Active PROCTOZONE-HC (unknown strength) apply by topical route 2 times every day to the affected area(s) Not Available - Active TERBUTALINE SULFATE (unknown strength) take 1 tablet (2.5MG) by oral route 3 times every day Not Available - Active TRAZODONE HCL (unknown strength) take 1 tablet (100MG) by oral route 2 times every day after meals Not Available - Active TYLENOL-CODEINE NO.3 (unknown strength) take 1 tablet by oral route every 6 hours as needed Not Available - Active MECLIZINE HCL (unknown strength) take 2 tablet (25MG) by oral route 3 times every day as needed Not Available - Active MAALOX ADVANCED (unknown strength) Not Available - Active SUDAFED (unknown strength) take 2 tablet (60MG) by oral route every 6 hours as needed Not Available - Active TYLENOL EXTRA STRENGTH (unknown strength) take 2 tablet (1000MG) by oral route every 6 hours as needed Not Available - Active ADVAIR DISKUS (unknown strength) inhale 1 puff by inhalation route 2 times every day in the morning and eveningapproximately 12 hours apart Not Available - Active XOPENEX (unknown strength) Not Available - Active Procedures Procedure Date OFFICE/OUTPATIENT VISIT, EST VISUAL FIELD EXAMINATION(S) REFRACTION Advance Directives Directive Yes / No Effective Date File Name Resuscitation Not Answered N/A N/A Life Support Not Answered N/A N/A Intubation Not Answered N/A N/A Antibiotics Not Answered N/A N/A IV Fluid Support Not Answered N/A N/A Tube Feed Not Answered N/A N/A Other Directive N/A N/A WARNING:The information contained in this section is historical and is provided for information only and does not constitute a legal document or any assurance that the information is still accurate. Please verify the information with the arellano of the legal document before using it for clinical purposes. Encounters Encounter Description Practice Location Reason(s) For Visit Diagnoses Date Provider Providers Copied on Encounter [facility], [address] [place] [address], [id number], tel:[phone] [facility] Office No Information 1 Mayer Dolly. [address], [address], [place], [address], [place]. tel:[phone] OFFICE/OUTPA TIENT VISIT, EST [facility], [address] [place] [address], [id number], [place] tel:[phone] [facility] Office eyes doing well, without complaint. (chief complaint) Multiple sclerosisPresb yopiaRetinal hemorrhage 1 Mayer Dolly. [address], [address], [place], [address], [place]. tel:[phone] [facility], [address] [place] [address], [place], [place], [id number], [place] tel:[phone] [facility] [place] No Information 1 Inderjit Davis. [address] [place] [address], [address], [place], [address], [place]. tel:[phone] [facility], [address] [place] [address], [id number], [place] tel:[phone] [facility] Office No Information 0 Bing Rodriguez. [address], [place], [place], [id number], [place]. tel:[phone] Family History Family Member Type Diagnosis Age At Onset No Information Payers Payer name Insurance type Covered constitution party ID Authoriza tion(s) No Information Social History Type Description Quantity Date Captured Comments Alcohol Use Details Unknown Caffeine Use Details Unknown Tobacco Use Status No Information Smoking Status No Information Sex Female Chief Complaint And Reason For Visit No Information Plan Of Treatment Date Type Action Status No Information History Of Present Illness Encounter Date Complaint History Of Prese nt Illness No Information Instructions Date Instruction Additional Infor mation - Return in 6 months for Dilated Exam, no VF Related to Multiple sclerosis Presbyopia, OU - Pt. ordering 1 box OS and 2 boxes OD,DDS.Happy with current glasses. Related to Presbyopia h/o optic neuritis O U-resolved - Vision OkayVisual Field done today-OD full, OS poor study Isolated Retinal Hem orrhage, OD - Recommended to see PCP for further evaluation and to check BP/bloodwork. Discussed in length with pt. Pt. been noncompliant with f/[id number] blood work normal. no DM no HTN. so f/u 6 months dilated exam- then can go back to annual. a1C 5.7 Related to Retinal Hemorrhage Multiple sclerosis, - Recommended to see for MS. Pt. will make appt.[place] 20/20 OU Related to Multiple sclerosis Assessments Type Assessment Date No Information
--- OUTSIDE RECORDS SUMMARY | 2025-01-06 11:44 | XMS_ITS | Encounter Summary ---
Author Organization [facility] Address 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
--- OUTSIDE RECORDS SUMMARY | 2025-01-06 11:44 | XMS_ITS | Continuity of Care Document ---
Author Organization [facility] Address [address] [place] [address] [address] [place] [address] Phone Care Team Providers Care Catastrophe Claims Supervisor Name Role Phone [facility] Unavailable Unavail able Porfirio Piedra Unavailable Unavailable Advance Directives Directive Yes / No Effective Date File Name No Information Encounters Encounter Description Practice Location Reason(s) For Visit Diagnoses Date Provider Providers Copied on Encounter [facility], [address] [place] [address] [address], [place], [place], [id number], [place] tel:[phone] [facility] No Information [facility]. [address] [facility], [address], [place], [place], [id number] , [place]. [phone] Referring Provider: Lee New, [address] [place] [address] [address], [place], [address]. tel:[phone] sulting Provider: Porfirio Piedra, [address] [place] [address], [place], [address]. tel:[phone] Family History Family Member Type Diagnosis Age At Onset No Information Payers Payer name Insurance type Covered constitution party ID Authoriza tion(s) No Information Social History Type Description Quantity Date Captured Comments Sex Female Smoking Status No Information Chief Complaint And Reason For Visit No Information Reason For Referral Reason For Referral No Information History Of Present Illness Encounter Date Complaint History Of Prese nt Illness No Information Functional Status Date Functional Assessmen t No Information Instructions Date Instruction Additional Infor mation No Information Assessments Type Assessment Date No Information Patient Care Teams Name Effective Dates (start - stop) Status Members No Information
--- OUTSIDE RECORDS SUMMARY | 2025-01-06 11:44 | XMS_ITS | Encounter Summary ---
Author Organization [employer] Address [address] [place] [address] Care Team Providers Care Retail Asset Protection Specialist Name Role Phone Rod Buckner PA-C Primary Care Provide r Encounter Details Date Type Department Care Team (Late st Contact Info) Description 04/21/2000 Outpatient Historical Division of Neurology [address] [address] Armida Mendez MD [address] [facility] [address] [place] [phone] Social History Tobacco Use Types Packs/Day Years Used Date Smoking Tobacco: Never Assessed Comments Unknown Sex and Gender Information Value Date Recorded Sex Assigned at Not on file 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
--- OUTSIDE RECORDS SUMMARY | 2025-01-06 11:44 | XMS_ITS | Encounter Summary ---
Author Organization [employer] Address [address] [place] [address] Care Team Providers Care Quality Control Coordinator Name Role Phone Rod Buckner PA-C Primary Care Provide r Encounter Details Date Type Department Care Team (Late st Contact Info) Description 03/12/2000 Outpatient Historical Division of Neurology [address] [address] Armida Mendez MD [address] [facility] [address] [place] [address] Social History Tobacco Use Types Packs/Day Years Used Date Smoking Tobacco: Never Assessed Comments Unknown Sex and Gender Information Value Date Recorded Sex Assigned at Not on file Legal Sex Female 5:09 AM ASBESTOS CLOTH INSPECTOR Gender Identity Not on file Sexual Orientation Not on file documented as of this encounter Plan of Treatment Not on file documented as of this encounter Visit Diagnoses Not on filedocumented in this encounter Care Teams Quality Control Coordinator Relationship Specialty Start Date End Date Rod Buckner PA-C PCP - General Physician Net Developer 10/05/20 documented as of this encounter
--- OUTSIDE RECORDS SUMMARY | 2025-01-06 11:44 | XMS_ITS | Encounter Summary ---
Author Organization [employer] Address [address] [place] [address] Care Team Providers Care 3Rd Grade Reading Teacher Name Role Phone Rod Buckner PA-C Primary Care Provide r Encounter Details Date Type Department Care Team (Late st Contact Info) Description 07/29/2002 Outpatient Historical Division of Neurology [address] [address] Armida Mendez MD [address] [facility] [address] [place] [address] Social History Tobacco Use Types Packs/Day Years Used Date Smoking Tobacco: Never Assessed Comments Unknown Sex and Gender Information Value Date Recorded Sex Assigned at Not on file Legal Sex Female 5:09 AM HEAD OPERATOR Gender Identity Not on file Sexual Orientation Not on file documented as of this encounter Plan of Treatment Not on file documented as of this encounter Visit Diagnoses Not on filedocumented in this encounter Care Teams 3Rd Grade Reading Teacher Relationship Specialty Start Date End Date Rod Buckner PA-C PCP - General Physician Rerolling Machine Operator 10/05/20 documented as of this encounter
--- OUTSIDE RECORDS SUMMARY | 2025-01-06 11:44 | XMS_ITS | Encounter Summary ---
Author Organization [employer] Address [address] [place] [address] Care Team Providers Care Process Planner Name Role Phone Rod Buckner PA-C Primary Care Provide r Encounter Details Date Type Department Care Team (Late st Contact Info) Description 12/01/2001 Outpatient [facility] [place] [facility] Division of Neurology [address] [address] Armida Mendez MD [address] [facility] [address] [place] [address] Social History Tobacco Use Types Packs/Day Years Used Date Smoking Tobacco: Never Assessed Comments Unknown Sex and Gender Information Value Date Recorded Sex Assigned at Not on file Legal Sex Female 5:09 AM EXPRESSIVE MUSIC THERAPIST Gender Identity Not on file Sexual Orientation Not on file documented as of this encounter Plan of Treatment Not on file documented as of this encounter Visit Diagnoses Not on filedocumented in this encounter Care Teams Process Planner Relationship Specialty Start Date End Date Rod Buckner PA-C PCP - General Physician Greenhouse Or Nursery Transplanter 10/05/20 documented as of this encounter
--- OUTSIDE RECORDS SUMMARY | 2025-01-06 11:44 | XMS_ITS | Encounter Summary ---
Author Organization [employer] Address [address] [place] [address] Care Team Providers Care Gastroenterology Teacher Name Role Phone Rod Buckner PA-C Primary Care Provide r Encounter Details Date Type Department Care Team (Latest Contact Info) Description 03/20/2001 Outpatient Historical [facility] OP NEUROLOGY Armida Mendez MD [address] [facility] [address] [place] [address] Multiple sclerosis (CMS/HCC) (Primary Dx) Social History Tobacco Use Types Packs/Day Years Used Date Smoking Tobacco: Never Assessed Comments Unknown Sex and Gender Information Value Date Recorded Sex Assigned at Not on file Legal Sex Female 5:09 AM PRACTICE SUPPORT SPECIALIST Gender Identity Not on file Sexual Orientation Not on file documented as of this encounter Plan of Treatment Not on file documented as of this encounter Visit Diagnoses Diagnosis Multiple sclerosis (CMS/HCC)- Primary Multiple sclerosis documented in this encounter Care Teams Gastroenterology Teacher Relationship Specialty Start Date End Date Rod Buckner PA-C PCP - General Physician Marketing Summer Intern 10/05/20 documented as of this encounter
--- OUTSIDE RECORDS SUMMARY | 2025-01-06 11:44 | XMS_ITS | Encounter Summary ---
Author Organization [facility] Address [address] [place] [address] Care Team Providers Care Window/Distribution Clerk Name Role Phone Rod Buckner PA-C Primary Care Provide r Encounter Details Date Type Department Care Team (Late st Contact Info) Description 07/29/2002 Outpatient Historical [facility] MRI DEPT Dipak Perry MD [address] [address] SWELLING IN HEAD & NECK (Primary Dx) Social History Tobacco Use Types Packs/Day Years Used Date Smoking Tobacco: Never Assessed Comments Unknown Sex and Gender Information Value Date Recorded Sex Assigned at Not on file Legal Sex Female 5:09 AM THEATER USHER Gender Identity Not on file Sexual Orientation Not on file documented as of this encounter Plan of Treatment Not on file documented as of this encounter Visit Diagnoses Diagnosis Swelling, mass, or lump in head and neck- Primary documented in this encounter Care Teams Window/Distribution Clerk Relationship Specialty Start Date End Date Rod Buckner PA-C PCP - General Physician Software Test Technician 10/05/20 documented as of this encounter
--- OUTSIDE RECORDS SUMMARY | 2025-01-06 11:44 | XMS_ITS | Encounter Summary ---
Author Organization [employer] Address [address] [place] [address] Care Team Providers Care Auto Motor Mechanic Name Role Phone Rod Buckner PA-C Primary Care Provide r Encounter Details Date Type Department Care Team (Late st Contact Info) Description 02/02/2001 Outpatient Historical Division of Neurology [address] [address] Armida Mendez MD [address] [facility] [address] [place] [address] Social History Tobacco Use Types Packs/Day Years Used Date Smoking Tobacco: Never Assessed Comments Unknown Sex and Gender Information Value Date Recorded Sex Assigned at Not on file Legal Sex Female 5:09 AM NUCLEAR PHYSICS TEACHER Gender Identity Not on file Sexual Orientation Not on file documented as of this encounter Plan of Treatment Not on file documented as of this encounter Visit Diagnoses Not on filedocumented in this encounter Care Teams Auto Motor Mechanic Relationship Specialty Start Date End Date Rod Buckner PA-C PCP - General Physician Signal Helper 10/05/20 documented as of this encounter
--- OUTSIDE RECORDS SUMMARY | 2025-01-06 11:44 | XMS_ITS | Encounter Summary ---
Author Organization [facility] Address [address] [place] [address] Care Team Providers Care Department Store Manager Name Role Phone Lottie Chin Unavailable Unavailable Rod Buckner PA-C Primary Care Provide r Zuly Miller MD Unavailable [phone] Reason for Visit * Reason Onset Date Comments Med Question 12/13/2018 Encounter Details Date Type Department Care Team (Late st Contact Info) Description 12/13/2018 Telephone [facility] Internal Medicine [address] [address] Martha Clark MD [address] OF [facility] [place] [id number] Med Question Social History Tobacco Use Types Packs/Day Years [...] encounter Miscellaneous Notes * Telephone Encounter - Dayami Shi - 12/13/2018 2:42 PM CST The pt called back to get message from us Please call patient again and reiterate that this medication is used for symptoms for multiple sclerosis, parkinson's disease, or other neurologic disorders. It is inappropriate for the internal medicine department to prescribe it. She needs to talk to her neurologist about this medication who will decide whether or not it is appropriate for her to take this medication. Thanks. (Routing comment) ?? The pt states that she does not have a neurologist at this time, will be seeing a new neurologist in a couple of weeks. The neurologist re-scheduled twice on the pt and the pt was supposed to be seenin September The pt needs her Amantadine The pt would need at least a month d/t using [employer] ET BUILDER documented in this encounter Plan of Treatment Upcoming Encounters Date Type Department Care Team (Late st Contact Info) Description 02/08/2025 10:30 AM CDT Office Visit [facility] - GI [address] [facility], [place] [address] Isai Leon MD [address] [place] [address] 08/21/2025 11:30 AM CDT Office Visit [facility] - General Surgery [address] [place] [address] Bebe Faulkner MD [address] [facility] [address] [place] [address] documented as of this encounter Goals Goal Patient Goal Type Associated Problems Recent Progress Patient-Stated? Author Safety General On track( 024 2:13 PM POCKET BUILDER) No Ml Livingston, RN Note: Expected end date: Ongoing Interventions: Your nurse will assess your risk for falls/injury each visit Use appropriate and safe transfer methods Medication Management General On track( 024 2:13 PM POCKET BUILDER) Ml Serra, RN Note: Expected end date: Ongoing Interventions: Take all medications as prescribed Let your doctor know right away about any changes in your medications documented as of this encounter Visit Diagnoses Not on filedocumented in this encounter Care Teams Department Store Manager Relationship Specialty Start Date End Date Rod Buckner PA-C [address] [facility] [address] [place] [address] PCP - General 02/18/19 Lottie Chin After School Counselor Psychiatry 09/08/18 03/22/19 Zuly Miller MD [address] [address] Hematology and Oncology 02/17/24 documented as of this encounter
--- OUTSIDE RECORDS SUMMARY | 2025-01-06 11:44 | XMS_ITS | Encounter Summary ---
Author Organization [facility] Address [address] [place] [address] Care Team Providers Care Phys Asst Name Role Phone Rod Buckner PA-C Primary Care Provide r Encounter Details Date Type Department Care Team (Latest Contact Info) Description 03/14/2002 Outpatient Historical HIS CARDIOPULMONARY Conversion, History RESPIRATORY ABNORM NEC (Primary Dx) Social History Tobacco Use Types Packs/Day Years Used Date Smoking Tobacco: Never Assessed Comments Unknown Sex and Gender Information Value Date Recorded Sex Assigned at Not on file Legal Sex Female 5:09 AM FALL INTERNSHIP Gender Identity Not on file Sexual Orientation Not on file documented as of this encounter Plan of Treatment Not on file documented as of this encounter Visit Diagnoses Diagnosis Other dyspnea and respiratory abnormality- Primary documented in this encounter Care Teams Phys Asst Relationship Specialty Start Date End Date Rod Buckner PA-C PCP - General Physician Practice Clinician 10/05/20 documented as of this encounter
--- OUTSIDE RECORDS SUMMARY | 2025-01-06 11:44 | XMS_ITS | Encounter Summary ---
Author Organization [facility] Address [address] [facility] [place] [address] Care Team Providers Care Manufacturing Quality Engineer Name Role Phone Rod Buckner PA-C Primary Care Provide r Zuly Miller MD Unavailable [phone] Encounter Details Date Type Department Care Team (Late st Contact Info) Description 06/25/2020 Telephone [facility] Plastic [facility] [address] [place] [address] Nick Rojas MD [address] [place] [address] Social History Tobacco Use Types Packs/Day Years Used Date Smoking Tobacco: Former Cigarettes 4 20 0 11/30/1970 - 11/30/1990 Smokeless Tobacco: Never Alcohol Use Standard Drinks/Week Comments No 0 (1 standard drink = 0.6 oz pur e alcohol) Sex and Gender Information Value Date Recorded Sex Assigned at Not on file Gender Identity Not on file Sexual Orientation Not on file COVID-19 Exposure Response Date Recorded In the last month, have you been in contact with someone who was confirmed or suspected to have Coronavirus / COVID-19? Unable to assess 06/22/2020 4:05 PM CDT documented as of this encounter Functional Status [...] encounter Miscellaneous Notes * Telephone Encounter - Rohan Bucknerantha - 06/25/2020 11:37 AM CDT Per Eveline at [facility], cpt codes: 45297-11, 90302-98, 24922, 22023, and 70052 do not require prior authorization. Patient is scheduled for this as a combo surgery with Dr. Rojas and Dr. Roy on 07/06/2020. Dr. Roy's office is going to reach out to the patient regarding her surgery instructions and COVID testing information. Viki Quiñones [phone] documented in this encounter Plan of Treatment Upcoming Encounters Date Type Department Care Team (Late st Contact Info) Description 02/08/2025 10:30 AM CDT [facility] [address] [facility] [place] [address] Isai Leon MD [address] [place] [phone] 08/21/2025 11:30 AM CDT [facility] [address] [place] [address] Bebe Faulkner MD [address] [facility] [address] [place] [address] documented as of this encounter Goals Goal Patient Goal Type Associated Problems Recent Progress Patient-Stated? Author Safety General On track( 024 2:13 PM PHYSICIAN LOCUMS URGENT CARE) Ml Serra, RN Note: Expected end date: Ongoing Interventions: Your nurse will assess your risk for falls/injury each visit Use appropriate and safe transfer methods Medication Management General On track( 024 2:13 PM PHYSICIAN LOCUMS URGENT CARE) Ml Serra, RN Note: Expected end date: Ongoing Interventions: Take all medications as prescribed Let your doctor know right away about any changes in your medications documented as of this encounter Visit Diagnoses Not on filedocumented in this encounter Care Teams Manufacturing Quality Engineer Relationship Specialty Start Date End Date Rod Buckner PA-C [address] [address] [address] [place] [address] PCP - General 02/18/19 Zuly Miller MD [address] [facility] [address] [place] [address] Hematology and Oncology 02/17/24 documented as of this encounter
--- OUTSIDE RECORDS SUMMARY | 2025-01-06 11:44 | XMS_ITS | Encounter Summary ---
Author Organization [employer] Address [address] [place] [address] Care Team Providers Care Gypsum Roofer Name Role Phone Rod Buckner PA-C Primary Care Provide r Encounter Details Date Type Department Care Team (Late st Contact Info) Description 01/10/2003 Outpatient Historical Division of Neurology [address] [address] Armida Mendez MD [address] [facility] [address] [place] [address] Social History Tobacco Use Types Packs/Day Years Used Date Smoking Tobacco: Never Assessed Comments Unknown Sex and Gender Information Value Date Recorded Sex Assigned at Not on file Legal Sex Female 5:09 AM BIOINFORMATICS ENGINEER Gender Identity Not on file Sexual Orientation Not on file documented as of this encounter Plan of Treatment Not on file documented as of this encounter Visit Diagnoses Not on filedocumented in this encounter Care Teams Gypsum Roofer Relationship Specialty Start Date End Date Rod Buckner PA-C PCP - General Physician Banquet Prep Cook 10/05/20 documented as of this encounter
--- OUTSIDE RECORDS SUMMARY | 2025-01-06 11:44 | XMS_ITS ---
Author Organization [facility] Address [address] [address] Care Team Providers Care Hourly Caregiver Name Role Phone Rod Buckner PA-C Primary Care Provide r Zuly Miller MD Unavailable [phone] Active Problems Problem Noted Date Diagnosed Date [...] pectoris 09/11/2011 Atherosclerotic heart diseas e of [place] coronary artery without angina pectoris 09/11/2011 Essential [...] colon History of colon polyps Gastric adenoma Current Oncology Plans No current plan information found. Other Current Plans BREAST ADJ (ZOLEDRONIC ACID) Q180 DAYS (ZOMETA)* Plan Start Date:02/09/2024 Plan Provider:Wilmer Zhang MD Linked Problems Osteopenia of multiple sites Treatment Medications No medications scheduled. Past Plans No past plan information found. Radiation Treatments * No radiation treatments are documented for this patient in [facility]. Treatments may have been administered in another system. 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 - Preliminary Celi score 1 (tub 1/nuc 1/zaynab 1). - ER positive, TX positive, HER-2 negative. Date of diagnosis: 06/22/20 Age of diagnosis: 60 Tumor Information Cancer Staging Ductal carcinoma in situ (DCIS) of right breast Staging form: Breast, AJCC 8th Edition - Clinical: No stage assigned - Unsigned - Pathologic stage from 07/18/2020: Stage 0 (pTis (DCIS), cN0, cM0, ER: Not Assessed, TX: Not Assessed, HER2: Not Assessed) - Signed by Jennifer Roy MD on 07/18/2020 Malignant neoplasm of upper-outer quadrant of left breast in female, estrogen receptor positive Staging form: Breast, AJCC 8th Edition - Clinical stage from 07/18/2020: Stage IA (cT1b, cN0, cM0, G1, ER+, TX+, HER2-) - Signed by Jennifer Roy MD on 07/18/2020 - Pathologic stage from 07/18/2020: Stage IA (pT1b, pN0(sn), cM0, G1, ER+, TX+, HER2-) - Signed by Jennifer Roy MD on 07/18/2020 Surgery Information Description: Bilateral TMs, left SLNB and bilateral immediate breast reconstruction with local tissue rearrangement an inferior dermal flaps Date: 07/06/20 Surgeon/Facility Name: Jennifer Roy MD and Nick Rojas MD / [facility] Adjuvant Treatment Recommendations: Medical Oncology referral Initial Imaging Mammogram: 06/22/20; [facility]; Irregular mass with distortion in the upper outer left breast is highly suspicious for malignancy Radiation Information NA Chemotherapy Information NA Genetic Testing NA Other Information Clinical Trials: NA Pre-treatment Weight: 226 lb Post-Treatment Weight: 232 lb Psychosocial needs: Anxiety and concerns for body image and referred to counseling Fertility: history of hysterectomy Possible Late Effects of Your Cancer Treatment Surgery -Scarring at the surgical site. -Problems fighting infection -Lymphedema or swelling of arms or legs -Nutritional problems -Trouble focusing or memory loss -Changes in sexual function or fertility -Pain that may be chronic or long term care administrator -Difficulty with speech or swallowing -Emotional effects of physical changes Cancer Surveillance Schedule You will be seen more frequently the earlier you are in your surveillance plan. Every patient will have an individualized follow up schedule based on recommendations from national cancer organizations and your specific post- treatment course. Follow up with Location How often Radiation Oncology [facility] Clinical visit every 4-6 months for 5 yrs, then every [address] Pruitt's recommendations Medical Oncology [facility] Surgery [facility] Mammography [facility] You have had bilateral mastectomies Reasons to call: New lesions or mass Chest pain New feelings of sadness or being overwhelmed Unintended weight loss Cough that does not go away Any side effects or questions of care Your follow up schedule is listed below Future Appointments Date Time Provider Department Center 10/08/2020 12:30 PM Nona Alfonso PA-C [id number] [facility]FF [facility] S 02/21/2021 10:00 AM Arlin Pruitt MD [id number] [facility] S 03/01/2021 9:30 AM Janeth Titus MD [id number] [facility] Contact Information Medical Oncologist Arlin Pruitt MD Surgeon Jennifer Roy MD / Bebe Faulkner MD Social Work Dietitian Pastoral Care [facility] Hospital Scheduling Primary Care Provider Rod Buckner PA-C [phone] Recommended cancer screenings Colonoscopy: every 10 years beginning at age 50 unless directed otherwise. Last colonoscopy: 08/21/20; please follow Dr Titus's recommendations for future colonoscopies. PAP smear: You have had a hysterectomy in the past. Please discuss need for pelvic exams in the future with your PCP General Wellness Screening Blood Pressure: annually Weight: annually Lipids: Women age >= 45 should be screened for lipid(cholesterol) disorder Diabetes: Discuss with your primary care provider especially if you are overweight or have high blood pressure Bone Density: Women age >= 65 should be screened for osteoporosis Vision: No routine screening recommended. If you think your vision has changed, get a vision examination. Hearing: No routine screening recommended. If you think your hearing has changed, get a hearing examination. Dental: Dental examinations every 6 months are recommended. If you have had radiation, you should discuss fluoride treatments with your dentist. Staying Healthy Immunizations: Annual flu shot Tetanus booster every 10 years Diptheria and Pertussis booster if you haven???t had one Shingles vaccine at age 60 if you have had chicken pox Pneumonia vaccine at ages between 19-64 if chronically ill; at age 65 for all people Sun Exposure: Wear sunscreen daily. Apply liberally when outside and wear protective clothing. Nutrition: A healthy weight and a balanced diet will Tobacco: Avoid all tobacco and vapor products. If you have not been able to quit, ask for help. Alcohol: Moderate alcohol intake is acceptable. If you think you drink too much, we can help you find resources to help you quit. Drugs: Illegal drugs should be avoided. If you use any of these substances, ask for help with stopping. Activity: Staying active helps your heart, your lungs, and your immune system. Take every opportunity to walk a few extra steps. Important Resources [facility]center[facility] [place] [employer] cancer.org Association of Cancer Online Resources acor.org Caring Bridge caringbridge.org CancerCare cancercare.org [facility] livestrong.org National Cancer Divide cancer.gov Cancer Survivors Network csn.cancer.org National Coalition for Cancer Survivorship canceradvocacy.org [place] [employer] of Clinical Oncologists cancer.net Cancer Support Community [facility] www.cancersupportstl.org Radiation Therapy Questions/Answers www.rtanswers.org Resolved Problems Problem Noted Date Diagnosed Date Resolved Date Functional diarrhea 01/11/2020 04/24/20 21
--- OUTSIDE RECORDS SUMMARY | 2025-01-06 11:44 | XMS_ITS | Encounter Summary ---
Author Organization [facility] Address [address] [place] [address] Care Team Providers Care Zoning Administrator Name Role Phone Rod Buckner PA-C Primary Care Provide r Encounter Details Date Type Department Care Team (Late st Contact Info) Description 07/21/2000 Outpatient Historical Division of Neurology [address] [address] Armida Mendez MD [address] [facility] [address] [place] [id number] Social History Tobacco Use Types Packs/Day Years Used Date Smoking Tobacco: Never Assessed Comments Unknown Sex and Gender Information Value Date Recorded Sex Assigned at Not on file Legal Sex Female 5:09 AM CONTESTANT COORDINATOR Gender Identity Not on file Sexual Orientation Not on file documented as of this encounter Plan of Treatment Not on file documented as of this encounter Visit Diagnoses Not on filedocumented in this encounter Care Teams Zoning Administrator Relationship Specialty Start Date End Date Rod Buckner PA-C PCP - General Physician Dinkey Press Operator 10/05/20 documented as of this encounter
--- OUTSIDE RECORDS SUMMARY | 2025-01-06 11:44 | XMS_ITS | Encounter Summary ---
Author Organization [employer] Address [address] [place] [address] Care Team Providers Care Inletter Name Role Phone Rod Buckner PA-C Primary Care Provide r Encounter Details Date Type Department Care Team (Latest Contact Info) Description 03/29/2000 Outpatient Historical [facility] [place]., [place] 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
--- OUTSIDE RECORDS SUMMARY | 2025-01-06 11:44 | XMS_ITS | Encounter Summary ---
Author Organization [facility] Address [address] [place] [address] Care Team Providers Care Pharmacy Cashier Name Role Phone Rod Buckner PA-C Primary Care Provide r Encounter Details Date Type Department Care Team (Late st Contact Info) Description 12/07/2001 Outpatient Historical [facility] MRI DEPT Conversion, History CERVICAL DISC DISPLACMNT (Primary Dx) Social History Tobacco Use Types Packs/Day Years Used Date Smoking Tobacco: Never Assessed Comments Unknown Sex and Gender Information Value Date Recorded Sex Assigned at Not on file Legal Sex Female 5:09 AM DOG CONTROL OFFICER Gender Identity Not on file Sexual Orientation Not on file documented as of this encounter Plan of Treatment Not on file documented as of this encounter Visit Diagnoses Diagnosis Displacement of cervical intervertebral disc without myelopathy- Primary documented in this encounter Care Teams Pharmacy Cashier Relationship Specialty Start Date End Date Rod Buckner PA-C PCP - General Physician Aba Tutor 10/05/20 documented as of this encounter
== END 2025-01-06 10:58 | disposition home or self-care (01) ==
PROVIDERS: PCP Nurse Practitioner; Visit Provider Nurse Practitioner
DX: R05.9 Cough, unspecified (principal); R06.02 Shortness of breath
CPT/HCPCS: 71046

== ENCOUNTER 2025-02-01 16:38 | Outpatient (CLI) | payer MEDICARE, SELFPAY ==
--- NOTE | ~2025-02-01 | XR_ITS ---
CHEST RADIOGRAPH, PA AND LATERAL CLINICAL HISTORY: R05 - PRODUCTIVE Cough . COMPARISON: 01/06/2025 TECHNIQUE: PA and lateral views of the chest. FINDINGS The cardiomediastinal silhouette is markedly enlarged, specifically the left atrium. The remainder of the cardiomediastinal silhouette is otherwise unremarkable. Increased interstitial markings are identified bilaterally, findings suggesting mild pulmonary vascul ar congestion, an interval change from prior. Redemonstration of scar within the bilateral mid to lower lung recio. The remainder of the lungs are clear. IMPRESSION: Mild pulmonary vascular congestion (an interval change) without focal infiltrate or effusion. If clinical suspicion persists, cross-sectional imaging (noncontrast enhanced CT examination of the c hest) is suggested for further evaluation. Reviewed, dictated and finalized at location A. RT COORDINATOR IMPRESSION: Mild pulmonary vascular congestion (an interval change) without focal infiltrat e or effusion. If clinical suspicion persists, cross-sectional imaging (noncontrast enhanced C T examination of the chest) is suggested for further evaluation.
--- OUTSIDE RECORDS SUMMARY | 2025-02-01 17:49 | XMS_ITS | Referral Summary ---
Author Organization [facility] Address [address] [facility] [place] [address] Care Team Providers Care Card Hand Name Role Phone Rod Buckner PA-C Primary Care Provide r Zuly Miller MD Unavailable [phone] Source Comments [facility],non-owned Affiliates and Associated Physician Practices is amultiple site organization consisting of ambulatory clinics and hospital sitesin [place], [place], [place] and [place]. This disclosure is being madepursuant to the Care Everywhere program and may not contain all information available regarding this patient. Last updated 18.[facility] Encounters Date Type Department Care Team Description 01/12/2025 Telephone [facility] GI [address] [place] [phone] Rebel Perez MD Results 01/11/2025 Telephone [facility] - [facility] [address] [place] [phone] Janeth Foreman MD MEDICATION REFILL 01/10/2025 Telephone [facility] - Nephrology [address] [place] [phone] Shawnee Schwarz RN Question 01/04/2025 Travel 01/04/2025 9:55 AM PHYSICIAN INDUSTRIAL Anesthesia Event [facility] [address] [place] [phone] Neel Lopez MD Heath, Kayla D, Anes Assmelida 01/04/2025 10:30 AM PHYSICIAN INDUSTRIAL - 01/04/2025 11:15 AM PHYSICIAN INDUSTRIAL Surgery [facility] [address] [place] [address] Janeth Foreman MD EGD w/ palagiri--miralax prep--arrive 90min early 01/04/2025 8:44 AM PHYSICIAN INDUSTRIAL - 01/04/2025 12:02 PM PHYSICIAN INDUSTRIAL Hospital Encounter [facility] [address] [place] [address] Janeth Foreman MD Surgery General Discharge Disposition: Home or Self Care 12/30/2024 Patient Outreach [facility] [address] [place] [phone] Yuni Orozco, KIERA 12/07/2024 Orders Only [facility] [address] [place] [address] Yuni Orozco, RN from Last 3 Months Allergies Active Allergy Reactions Criticality Noted Date Comments Amphetamine-Dextroampheta mine Palpitations Medium 01/28/2017 Adhesive Sensitivity Rash Medium 11/10/2011 Allergy Palpitations Medium 01/28/2017 Dermolin Nausea and/or Vomiting Low 02/04/2017 Allyl Isothiocyanate Nausea and/or Vomiting Low 02/04/2017 Swpmjusb-Acufhvlvk-Aoterv ine Rash Medium 01/28/2017 Armodafinil Unknown High 06/12/2015 Other reaction(s): Neuropathy Bacitracin Unknown Low 02/11/2019 [place] Oil Nausea and/or Vomiting,Unknown Medium 11/10/2011 Cefuroxime [...] fluticasone propionate (FLONASE) 50 MCG/ACT nasal spray [place] 1 (one) spray into each nostril 2 times daily Active Tiotropium Alma-Olodatero l 2.5-2.5 MCG/ACT Inhale 1 puff by [...] by mouth once daily Active Probiotic Product (Planandoo PO)Indications:Dy sphagia,Dysphagia , unspecified type,Adenomatous polyp of [...] not taking.Reported on 07/27/2024 Cholecalciferol 1.25 MG (13866 UT) Take 50,000 Units by mouth Active tamsulosin (FLOMAX) 0.4 MG capsule 01/02/2021 Active cetirizine (ZYRTEC) 10 MG tablet Take 1 (one) tablet by mouth once daily 04/10/2021 Active [place]-3 Fatty Acids (fish oil) 1000 MG capsule [...] (DCIS), cN0, cM0, G2, ER: Not Assessed, MD: Not Assessed, HER2: Not Assessed) - Signed by Meghana Zapata MD on 09/29/2021 Pathologic stage from 09/29/2021:Stage 0(pTis (DCIS), cN0, cM0, G2, ER: Not Assessed, MD: Not Assessed, HER2: Not Assessed) - Signed [...] from 07/18/2020:Stage IA(cT1b, cN0, cM0, G1, ER+, MD+, HER2-) - Signed by Meghana Zapata MD on 09/29/2021 Pathologic stage from 07/18/2020:Stage IA(pT1b, pN0(sn), cM0, G1, ER+, MD+, HER2- ) - Signed by Meghana Zapata MD on 09/29/2021 Overview (09/29/2021): Left, upper outer, 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 ER pos 100% (strong), MD pos 100% (strong), Her-2 neg (0 on [...] pectoris 09/11/2011 Atherosclerotic heart diseas e of [place] coronary artery without angina pectoris 09/11/2011 Essential [...] Problem Noted Date Diagnosed Date Resolved Date History of esophagogastroduodenoscopy (EGD) 01/12/2025 01/12/2025 Functional diarrhea 01/11/2020 04/24/20 21 Immunizations Name Administration Dates Next Due Oony primary monoval ent 12+ yr 0.3mL Purple cap 09/20/2021,02/26/2021,01/29/2021 FLU VACCINE TRI IIV3 SPLIT P F IM (FLUVIRIN) 11/07/2013 HEP B VACCINE, ADULT 3 DOSE 03/12/1998, 8 INFLUENZA A F6N0-29 VACCINE 08/30/2013 INFLUENZA VACCINE 09/20/2021,10/13/2014 INFLUENZA VACCINE, [...] Comments Blood Pressure 154/92 01/04/2025 11:30 AM PHYSICIAN INDUSTRIAL Pulse 84 01/04/2025 11:30 AM PHYSICIAN INDUSTRIAL Temperature 36.9 C (98.5 F) 01/04/2025 8:58 AM PHYSICIAN INDUSTRIAL Respiratory Rate 26 01/04/2025 11:3 0 AM PHYSICIAN INDUSTRIAL Oxygen Saturation 99% 01/04/2025 11: 30 AM PHYSICIAN INDUSTRIAL Inhaled Oxygen Concentration 21% 07/06/2020 2 :25 PM CDT Weight 107.4 kg (236 lb 11.2 oz) 01/04/2025 8:58 AM PHYSICIAN INDUSTRIAL Height 160 cm (5' 3 ) 01/04/2025 8:58 AM PHYSICIAN INDUSTRIAL Body Mass Index 41.93 01/04/2025 8:58 AM PHYSICIAN INDUSTRIAL Functional Status Functional Status Response Date of [...] Visit [facility] [address] [facility] [place] [phone] Isai Leon MD [address] [place] [address] 08/21/2025 11:30 AM CDT Office Visit [facility] - General Surgery [address] [place] [phone] Bebe Faulkner MD [address] [facility] [address] [place] [address] Goals Goal Patient Goal Type Associated Problems Recent Progress Patient-Stated? Author Safety General On track( 024 2:13 PM PHYSICIAN INDUSTRIAL) Ml Serra, RN Note: Expected end date: Ongoing Interventions: Your nurse will assess your risk for falls/injury each visit Use appropriate and safe transfer methods Medication Management General On track( 024 2:13 PM PHYSICIAN INDUSTRIAL) Ml Serra, RN Note: Expected end date: Ongoing Interventions: Take all medications as prescribed Let your doctor know right away about any changes in your medications Medical Devices Implanted Type Area System Developer Associate Manager Device Identifier Shelf Expiration Date Model / Serial / Lot Pk Guerra Brst[employer]ung Sys Implanted:Qty: 1 on 06/12/2020 by Maddie Dixon MD at [facility] 10/05/2020 [employer] / / [id number] Description:titanium biopsy marker Procedures Procedure Name Priority Date/Time Associated Diagnosis Comments ENDOSCOPY, COLON, SCREENING Routine 01/04/2025 10:16 AM PHYSICIAN INDUSTRIAL PATHOLOGY TISSUE Routine 01/04/2025 10:14 AM PHYSICIAN INDUSTRIAL 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 Thanks Received Date Received Time Jul 07, 2024 9:06 AM EGD Routine 01/04/2025 9:12 AM PHYSICIAN INDUSTRIAL COMPREHENSIVE METABOLIC PANEL Routine 08/17/2024 9:56 AM CDT Malignant neoplasm of upper-outer quadrant of left breast in female, estrogen receptor positive (HCC) MAMMO BILAT DIAGNOSTIC Routine 06/07/2020 9:10 AM CDT 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 Increased risk of breast cancer from Last 3 Months or Most Recently Relevant to Health Maintenance Results * ENDOSCOPY, COLON, SCREENING (01/04/2025 10:16 AM PHYSICIAN INDUSTRIAL) Report Endoscopy POC Endoscopy Department Report _ [...] bowel preparation was evaluated using the BBPS ([place]y Bowel Preparation Scale) with scores of: Right [...] non-young portions. Procedure Code(s): --- Professional --- 67414, Colonoscopy, flexible; with biopsy, single or multiple Diagnosis Code(s): --- Professional --- Z86.010, Personal history of colonic polyps K57.30, Diverticulosis of large intestine without perforation or abscess without bleeding CPT copyright 2021 [employer]. All rights reserved. The codes documented in this report are preliminary and upon sneller hand review may be revised to meet current compliance requirements. Janeth Foreman MD ([place]) 01/04/2025 10:58:05 AM Note Initiated On: 01/04/2025 10:16 AM Number of Addenda: [address] [id number] [facility] 01/04/2025 10:1 6 AM PHYSICIAN INDUSTRIAL Janeth Foreman MD GI PROCEDURE ORDE DEBBY [facility] * PATHOLOGY TISSUE (01/04/2025 10:14 AM PHYSICIAN INDUSTRIAL) Case Report Surgical Pathology Report Case: [id number] Authorizing Provider: Janeth Foreman MD Collected: 01/04/2025 10:14 AM Ordering Location: [facility] Received: 01/04/2025 12:42 PM Pathologist: Toya Canales MD Specimens: A) - Polyp Gastric, gastric polyps B) - Colon, random colon bx 01/05/2025 12:43 PM [facility] Final Diagnosis Stomach, gastric polyps, biopsy (A): - Fundic gland polyps - No dysplasia Large intestine, random colon, biopsy (B): - No histopathologic abnormality - No lymphocytic or collagenous colitis 01/05/2025 12:43 PM [facility] Microscopic Description and Comment Microscopic examination substantiates the final diagnosis. 01/05/2025 12:43 PM [facility] Clinical History The patient is a 64-year-old woman with dysphagia who presents for follow-up of gastric polyps and high risk colon cancer surveillance; history of CHEK2 mutation and prior gastric adenomatous polyps. Operative procedure/findings: EGD - few gastric polyps, resected and retrieved. Colonoscopy - normal colon, biopsy to rule out microscopic colitis. 01/05/2025 12:43 PM [facility] Gross Description The requisition and [...] in cassette B1. LT 01/05/2025 12:43 PM [facility] Pathologist Location at [facility] 01/05/2025 12:43 PM [facility] Disclaimer The performance characteristics of all immunohistochemical and indirect immunofluorescence stains (if any) cited in this report were determined by the [facility]. Some of these tests were developed by [...] the attending (teaching) pathologist. 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 Procedure Code(s): --- Professional --- 87289, Esophagogastroduode noscopy, flexible, transoral; with transendoscopic balloon dilation of esophagus (less than 30 mm diameter) Diagnosis Code(s): --- Professional --- K31.7, Polyp of stomach and duodenum K31.89, Other diseases of stomach and duodenum R13.10, Dysphagia, unspecified CPT copyright 2021 [employer]. All rights reserved. The codes documented in this report are preliminary and upon sneller hand review may be revised to meet current compliance requirements. Janeth Foreman MD ([place]) 01/04/2025 10:24:09 AM Note Initiated On: 01/04/2025 9:12 AM Number of Addenda: [address] [facility]OVATION 01/04/2025 9:12 AM PHYSICIAN INDUSTRIAL Janeth Foreman MD GI PROCEDURE ORDLeonel [facility]O [facility] * (ABNORMAL) COMPREHENSIVE METABOLIC PANEL (08/17/2024 9:56 AM CDT) BUN 8 7 - 26 mg/dL 08/17/2024 10:[address] [facility] Creatinine 0.78 0.56 - 0.96 mg/dL 08/17/2024 10:[address] [facility] Sodium 139 136 - 145 mmol/L 08/17/2024 10:[address] [facility] Potassium 4.6(H) 3.5 - 4.5 mmol/L 08/17/2024 10:[address] [facility] Chloride 110(H) 98 - 107 mmol/L 08/17/2024 10:[address] [facility] CO2 27 22 - 29 mmol/L 08/17/2024 10:[address] [facility] Glucose 81 70 - 115 mg/dL 08/17/2024 10:[address] [facility] Calcium 9.4 8.4 - 10.2 mg/dL 08/17/2024 10:[address] [facility] Protein Total 7.0 6.0 - 8.3 g/dL 08/17/2024 10:[address] [facility] Albumin 3.5 3.4 - 5.0 g/dL 08/17/2024 10:[address] [facility] Bilirubin Total 0.4 0.2 - 1.2 mg/dL 08/17/2024 10:[address] [facility] Alkaline Phosphatase 126 40 - 150 U/L 08/17/2024 10:[address] [facility] ALT 23 5 - 55 U/L 08/17/2024 10:[address] [facility] AST 16 5 - 34 U/L 08/17/2024 10:[address] [facility] Anion Gap 2(L) 6 - 16 08/17/2024 10:45 AM CDT [facility] BUN/Creatinine Ratio 10 7 - 23 08/17/2024 10:45 AM CDT [facility] Osmolality Calculated 285 275 - 295 mOsm/kg 08/17/2024 10:45 AM CDT [facility] Albumin/Globulin Ratio 1.0(L) 1.1 - 2.3 08/17/2024 10:45 AM CDT [facility] eGFR by CKD-EPI 84(L) >=90 mL/min/1.7 3 m2 08/17/2024 10:45 AM CDT [facility] Blood BLOOD SPECIMEN / Unknown Venipuncture / Unknown 08/17/2024 9:56 AM CDT 08/17/2024 10:16 AM CDT Zuly Miller MD LAB - CHEMISTRY REESE GUARDADO [facility] Organization Address City/State/ZIP Co de Phone Number [address] [address], [facility] [phone] * (ABNORMAL) MAMMO BILAT DIAGNOSTIC (06/07/2020 9:10 [...] 06/07/2020. COMPARISON: Multiple prior mammograms, most recently 2018 [facility] HISTORY: 59-year-old female with CHEK 2 [...] increased slightly in size when compared to [facility] imaging ultrasound 08/01/2016. There is no axillary adenopathy. Jennifer Roy MD MAMMO ORDERABLES from Last 3 Months or Most Recently Relevant to Health Maintenance Advance Directives * Full Code (Latest Code Status on File) Date Activated Date Inactivated Comments 09/09/2018 6:14 PM 09/10/2018 6:28 PM Care Teams Card Hand Relationship Specialty Start Date End Date Rod Buckner PA-C [address] [place] [address] PCP - General 02/18/19 Zuly Miller MD [address] [facility] [address] [place] [address] Hematology and Oncology 02/17/24
--- OUTSIDE RECORDS SUMMARY | 2025-02-01 17:49 | XMS_ITS | Encounter Summary ---
Author Organization [facility] Address [address] [place] [address] Phone Care Team Providers Care Retail Loss Prevention Specialist Name Role Phone Rod Buckner Primary Care Provider Gail Wyatt MD Unavailable [phone] Encounter Details Date Type Department Care Team [...] on file Legal Sex Female 7:38 PM SPORTS ADMINISTRATOR Gender Identity Female 06/29/2020 2:02 PM CDT [...] documented as of this encounter Care Teams Retail Loss Prevention Specialist Relationship Specialty Start Date End Date Rod Buckner PA [address] [facility] [address] [place] [address] PCP - General Physician Paper Making Machine Operator 02/15/19 Gail Wyatt MD [address] [place] [address] Medical Oncologist/Fancy Sewer Medical Oncology 07/23/22 documented as of this encounter
--- OUTSIDE RECORDS SUMMARY | 2025-02-01 17:49 | XMS_ITS | Clinical Summary ---
Author Organization [facility] Address [address] [place] [address] Phone Care Team Providers Care Manager Pipeline Name Role Phone Sunil Mayen DO Primary Care Provider Allergies Active Allergy Reactions Criticality Noted Date Comments Allyl Isothiocyanate Nausea And Vomiting,Unknown Low 02/04/2017 Amphetamine Low 06/12/2015 Other reaction(s): Unknown Amphetamine-Dextroampheta mine Palpitations Medium 01/28/2017 Other reaction(s): Other (see Comments) Heart palipations Armodafinil Unknown High 06/12/2015 Other reaction(s): Neuropathy Aspartame Other (see comments) Medium 06/18/2018 Other reaction(s): Other Abdominal pain Abdominal pain Bacitracin Low 02/11/2019 Other reaction(s): Unknown [place] Oil Nausea And Vomiting Medium 11/10/2011 Other [...] 10/21/2019 Active ergocalciferol (VITAMIN D2) 1.25 MG (50380 UT) capsule 11/14/2019 Active VIVELLE-DOT 0.1 MG/24HR [...] 12/18/2020 Active Spacer/Aero-Holdi ng Chambers (Cj Hoskins) [facility] See administration instructions 01/14/2021 Active albuterol (2.5 [...] hypercholesterolemia 09/11/2011 Atherosclerotic heart diseas e of [place] coronary artery without angina pectoris 09/10/2011 Edema [...] Comments Blood Pressure 136/72 02/05/2022 10:13 AM SALVAGE DETERMINER Pulse - - Temperature 36.2 C (97.2 F) 02/05/2022 10:13 AM SALVAGE DETERMINER Respiratory Rate 18 02/05/2022 10:13 AM SALVAGE DETERMINER Oxygen Saturation - - Inhaled Oxygen Concentration - - Weight 113 kg (249 lb) 02/05/2022 10:13 AM SALVAGE DETERMINER Height 160 cm (5' 3 ) 02/05/2022 10:13 AM SALVAGE DETERMINER Body Mass Index 44.11 02/05/2022 10:13 AM SALVAGE DETERMINER Plan of Treatment Health Maintenance Due Date Last Done Comments COVID-19 Vaccine (4 - 2023-2 5 season) 2024 09/20/2021, 02/26/2021, 01/29/2021 Influenza Vaccine (#1) 2024 0, 10/13/2014, 11/07/2013 Pneumococcal PPSV23/PCV13 65 + Years / High and Highest Risk (4 of 4 - PPSV23 or PCV20) 10/25/2024 10/25/2019, 09/09/2019, 12/09/2017, Additional history exists Care Teams Manager Pipeline Relationship Specialty Start Date End Date Sunil Mayen DO [address] [facility] [address] [place] [address] PCP - General Internal Medicine 09/27/19
--- OUTSIDE RECORDS SUMMARY | 2025-02-01 17:49 | XMS_ITS | Encounter Summary ---
Author Organization [facility] Address 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
--- OUTSIDE RECORDS SUMMARY | 2025-02-01 17:49 | XMS_ITS | Clinical Summary ---
Author Organization [facility] Address [address], [facility] [address] [place] [address] Phone Care Team Providers Care Rpg Developer Name Role Phone SitaRod munson Primary Care Provider Allergies Active Allergy Reactions Criticality Noted Date Comments Amphetamine-Dextroamphe tamine Other (see Comments) 02/11/2019 Heart palipations Allyl Isothiocyanate Vomiting,Unknown Low 7 Aspartame Other (see Comments) Medium 06/18/2018 Abdominal pain Other reaction(s): Other Abdominal pain Abdominal pain Bacitracin Unknown 02/11/2019 [place] Oil Unknown 02/11/2019 Cefuroxime Unknown 02/11/2019 Coconut [...] Fluticasone Propionate (FLONASE NA)Indications: each nostril 1 [place] by Nasal route daily. Indications: each nostril [...] 175 mcg by mouth daily. Active Tiotropium Bejou-Olodate rol (STIOLTO RESPIMAT IN) take 1 Puff [...] mouth daily. Indications: 5MG Active Probiotic Product (Spiralcat PO) Take 1 Tab by mouth daily. [...] by mouth daily as needed. Active Pseudoeph-Doxyl [id number]-TZ-[id number] (NYQUIL PO) Take by mouth Daily as [...] patient's age to complete this topic [place] [address] [address] Care Teams Rpg Developer Relationship Specialty Start Date End Date Rod Buckner PAC [address] [facility] [address] [facility] [address] [place] [address] PCP - General Physician [place] 02/08/19
--- OUTSIDE RECORDS SUMMARY | 2025-02-01 17:49 | XMS_ITS | Encounter Summary ---
Author Organization [facility] Address [address] [place] [address] Care Team Providers Care Hospital Director Name Role Phone Rod Buckner PA-C Primary Care Provide r Encounter Details Date Type Department Care Team (Late st Contact Info) Description 01/31/2000 Outpatient Historical Division of Neurology [address] [address] Armida Mendez MD [address] [facility] [address] [place] [address] Social History Tobacco Use Types Packs/Day Years Used Date Smoking Tobacco: Never Assessed Comments Unknown Sex and Gender Information Value Date Recorded Sex Assigned at Not on file Legal Sex Female 5:09 AM PSYCHIATRY PHYSICIAN Gender Identity Not on file Sexual Orientation Not on file documented as of this encounter Plan of Treatment Not on file documented as of this encounter Visit Diagnoses Not on filedocumented in this encounter Care Teams Hospital Director Relationship Specialty Start Date End Date Rod Buckner PA-C PCP - General Physician Waste Baler 10/05/20 documented as of this encounter
--- OUTSIDE RECORDS SUMMARY | 2025-02-01 17:49 | XMS_ITS | Encounter Summary ---
Author Organization [facility] Address [address] [place] [address] Phone Care Team Providers Care Yoga Teacher Name Role Phone Rod Buckner Primary Care Provider Gail Wyatt MD Unavailable [phone] Encounter Details Date Type Department Care Team (Late st Contact Info) Description 05/08/2021 Telephone [facility] Oncology [address] [facility] Advanced Medicine 7th [place] [address] Eileen Garcia Social History Tobacco Use Types Packs/Day Years Used Date Smoking Tobacco: Former Smokeless Tobacco: Former Alcohol Use Standard Drinks/Week Comments No 0 (1 standard drink = 0.6 oz pur e alcohol) PHQ-2 Answer Date Recorded PHQ-2 Score 0 07/22/2019 Comments Unknown Sex and Gender Information Value Date Recorded Sex Assigned at Not on file Legal Sex Female 7:38 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
--- OUTSIDE RECORDS SUMMARY | 2025-02-01 17:49 | XMS_ITS | Encounter Summary ---
Author Organization [employer] Address [address] [place] [address] Care Team Providers Care Blood Bank Technologist Name Role Phone Rod Buckner PA-C Primary Care Provide r Encounter Details Date Type Department Care Team (Late st Contact Info) Description 02/26/2000 Outpatient Historical Division of Neurology [address] [address] Armida Mendez MD [address] [facility] [address] [place] [phone] Social History Tobacco Use Types Packs/Day Years Used Date Smoking Tobacco: Never Assessed Comments Unknown Sex and Gender Information Value Date Recorded Sex Assigned at Not on file Legal Sex Female 5:09 AM NUMERICAL ANALYSIS GROUP MANAGER Gender Identity Not on file Sexual Orientation Not on file documented as of this encounter Plan of Treatment Not on file documented as of this encounter Visit Diagnoses Not on filedocumented in this encounter Care Teams Blood Bank Technologist Relationship Specialty Start Date End Date Rod Buckner PA-C PCP - General Physician Envelope Fold Operator 10/05/20 documented as of this encounter
--- OUTSIDE RECORDS SUMMARY | 2025-02-01 17:49 | XMS_ITS | Continuity of Care Document ---
Author Organization [facility] Address [address] [place] [address] [address] [place] [address] Phone Care Team Providers Care Film Writer Name Role Phone [facility] Unavailable Unavail able Porfirio Piedra Unavailable Unavailable Advance Directives Directive Yes / No Effective Date File Name No Information Encounters Encounter Description Practice Location Reason(s) For Visit Diagnoses Date Provider Providers Copied on Encounter [facility], [id number] [place] [address] [address], [place], [place], [id number], [place] tel:[phone] [facility] No Information [facility] [address] [facility], [address], [place], [place], [id number] , [place]. tel:[phone] Referring Provider: Lee New, [address] [place] [address] [address], [place], [address]. tel:[phone] sulting Provider: Porfirio Piedra, [address] [place] [address], [place], [address]. tel:[phone] Family History Family Member Type Diagnosis Age At Onset No Information Payers Payer name Insurance type Covered republican ID Authoriza tion(s) No Information Social History [...]
--- OUTSIDE RECORDS SUMMARY | 2025-02-01 17:50 | XMS_ITS | Encounter Summary ---
Author Organization [employer] Address 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
--- OUTSIDE RECORDS SUMMARY | 2025-02-01 17:50 | XMS_ITS | Encounter Summary ---
Author Organization [employer] Address [address] [place] [address] Care Team Providers Care Warehouse Logistics Coordinator Name Role Phone Rod Buckner PA-C Primary Care Provide r Encounter Details Date Type Department Care Team (Late st Contact Info) Description 01/10/2003 Outpatient Historical Division of Neurology [address] [address] Armida Mendez MD [address] [facility] [address] [place] [address] Social History Tobacco Use Types Packs/Day Years Used Date Smoking Tobacco: Never Assessed Comments Unknown Sex and Gender Information Value Date Recorded Sex Assigned at Not on file Legal Sex Female 5:09 AM WOOD INSPECTOR Gender Identity Not on file Sexual Orientation Not on file documented as of this encounter Plan of Treatment Not on file documented as of this encounter Visit Diagnoses Not on filedocumented in this encounter Care Teams Warehouse Logistics Coordinator Relationship Specialty Start Date End Date Rod Buckner PA-C PCP - General Physician Primer Inserting Machine Adjuster 10/05/20 documented as of this encounter
--- OUTSIDE RECORDS SUMMARY | 2025-02-01 17:50 | XMS_ITS | Encounter Summary ---
Author Organization [employer] Address [address] [place] [address] Care Team Providers Care Mold Cooler Name Role Phone Rod Buckner PA-C Primary Care Provide r Encounter Details Date Type Department Care Team (Late st Contact Info) Description 10/30/2003 Outpatient Historical Division of Neurology [address] [address] Armida Mendez MD [address] [facility] [address] [place] [address] Social History Tobacco Use Types Packs/Day Years Used Date Smoking Tobacco: Never Assessed Comments Unknown Sex and Gender Information Value Date Recorded Sex Assigned at Not on file Legal Sex Female 5:09 AM SELF STORAGE MANAGER Gender Identity Not on file Sexual Orientation Not on file documented as of this encounter Plan of Treatment Not on file documented as of this encounter Visit Diagnoses Not on filedocumented in this encounter Care Teams Mold Cooler Relationship Specialty Start Date End Date Rod Buckner PA-C PCP - General Physician Wheel Mill Operator 10/05/20 documented as of this encounter
--- OUTSIDE RECORDS SUMMARY | 2025-02-01 17:50 | XMS_ITS ---
Author Organization [facility] Address [address] [facility] [address] [place] [address] Care Team Providers Care Party Director Name Role Phone zzzzMigration, zzzzProvider Unavailable Unav ailable REASON FOR VISIT EMR-Nicolas Encounters Encounter Location Date Provider Diagnosis [facility] [address] [facility] [address] [place] [address] 09/19/2023 zzzzProvider zzzzMigration Plan Of Treatment No Information Progress Notes * Eugenia ELLISDOB:1960 (64 yo F)Acc No.[id number]:09/19/2023 Patient: Domo WELCHki :1960 A ge:63 Y S ex:Female Address:[address] [place] [id number] Subjective: * Chief Complaints: * E MR-Nicolas * Medical History: * Surgical History: * Hospitalization/Major Diagno stic Procedure: * Medications: Objective: * Vitals: * Physical Examination: Assessment: Plan: * Treatment: * Procedure Codes: * * Date:
--- OUTSIDE RECORDS SUMMARY | 2025-02-01 17:50 | XMS_ITS | Encounter Summary ---
Author Organization [employer] Address [address] [place] [address] Care Team Providers Care Lighting Fixture Installer Name Role Phone Rod Buckner PA-C Primary Care Provide r Encounter Details Date Type Department Care Team (Late st Contact Info) Description 04/21/2000 Outpatient Historical Division of Neurology [address] [address] Armida Mendez MD [address] [facility] [address] [place] [id number] Social History Tobacco Use Types Packs/Day Years Used Date Smoking Tobacco: Never Assessed Comments Unknown Sex and Gender Information Value Date Recorded Sex Assigned at Not on file Legal Sex Female 5:09 AM BLANKET WINDER OPERATOR Gender Identity Not on file Sexual Orientation Not on file documented as of this encounter Plan of Treatment Not on file documented as of this encounter Visit Diagnoses Not on filedocumented in this encounter Care Teams Lighting Fixture Installer Relationship Specialty Start Date End Date Rod Buckner PA-C PCP - General Physician Materials Management Supervisor 10/05/20 documented as of this encounter
--- OUTSIDE RECORDS SUMMARY | 2025-02-01 17:50 | XMS_ITS | Encounter Summary ---
Author Organization [employer] Address [address] [place] [address] Care Team Providers Care Outreach Liaison Name Role Phone Rod Buckner PA-C Primary Care Provide r Encounter Details Date Type Department Care Team (Late st Contact Info) Description 03/12/2000 Outpatient Historical Division of Neurology [address] [address] Armida Mendez MD [address] [facility] [address] [place] [address] Social History Tobacco Use Types Packs/Day Years Used Date Smoking Tobacco: Never Assessed Comments Unknown Sex and Gender Information Value Date Recorded Sex Assigned at Not on file Legal Sex Female 5:09 AM TOP KNITTER Gender Identity Not on file Sexual Orientation Not on file documented as of this encounter Plan of Treatment Not on file documented as of this encounter Visit Diagnoses Not on filedocumented in this encounter Care Teams Outreach Liaison Relationship Specialty Start Date End Date Rod Buckner PA-C PCP - General Physician Top Loader 10/05/20 documented as of this encounter
--- OUTSIDE RECORDS SUMMARY | 2025-02-01 17:50 | XMS_ITS | Encounter Summary ---
Author Organization [facility] Address [address] [place] [address] Care Team Providers Care Business Strategy Manager Name Role Phone Rod Buckner PA-C Primary Care Provide r Encounter Details Date Type Department Care Team (Latest Contact Info) Description 08/13/2008 Outpatient Historical [facility] NEURO PSYCHOLOGY Stella Rutherford, PhD Dept. of Neuropsychology [address] [place] [address] Multiple Sclerosis (CMS/HCC) Social History Tobacco Use Types Packs/Day Years Used Date Smoking Tobacco: Never Assessed Comments Unknown Sex and Gender Information Value Date Recorded Sex Assigned at Not on file Legal Sex Female 5:09 AM WOOD PROCESSING WORKER Gender Identity Not on file Sexual Orientation Not on file documented as of this encounter Plan of Treatment Not on file documented as of this encounter Visit Diagnoses Diagnosis Multiple sclerosis (CMS/HCC) Multiple sclerosis documented in this encounter Care Teams Business Strategy Manager Relationship Specialty Start Date End Date Rod Buckner PA-C PCP - General Physician Electric Tripper Machine Operator 10/05/20 documented as of this encounter
--- OUTSIDE RECORDS SUMMARY | 2025-02-01 17:50 | XMS_ITS | Encounter Summary ---
Author Organization [employer] Address [address] [place] [address] Care Team Providers Care Store Product Demonstrator Name Role Phone Rod Buckner PA-C Primary Care Provide r Encounter Details Date Type Department Care Team (Late st Contact Info) Description 07/21/2000 Outpatient Historical Division of Neurology [address] [address] Armida Mendez MD [address] [facility] [address] [place] [phone] Social History Tobacco Use Types Packs/Day Years Used Date Smoking Tobacco: Never Assessed Comments Unknown Sex and Gender Information Value Date Recorded Sex Assigned at Not on file Legal Sex Female 5:09 AM FOREST FIRE LOOKOUT Gender Identity Not on file Sexual Orientation Not on file documented as of this encounter Plan of Treatment Not on file documented as of this encounter Visit Diagnoses Not on filedocumented in this encounter Care Teams Store Product Demonstrator Relationship Specialty Start Date End Date Rod Buckner PA-C PCP - General Physician Hand Screen Printer 10/05/20 documented as of this encounter
--- OUTSIDE RECORDS SUMMARY | 2025-02-01 17:50 | XMS_ITS | Encounter Summary ---
Author Organization [facility] Address [address] [place] [address] Care Team Providers Care Electrical Prospecting Supervisor Name Role Phone Rod Buckner PA-C Primary Care Provide r Encounter Details Date Type Department Care Team (Late st Contact Info) Description 08/19/2004 Outpatient Historical HIS MRI DEPT Armida Mendez MD [address] [facility] [address] [place] [phone] MULTIPLE SCLEROSIS (CMS/HCC) (Primary Dx) Social History Tobacco Use Types Packs/Day Years Used Date Smoking Tobacco: Never Assessed Comments Unknown Sex and Gender Information Value Date Recorded Sex Assigned at Not on file Legal Sex Female 5:09 AM MASON TENDER Gender Identity Not on file Sexual Orientation Not on file documented as of this encounter Plan of Treatment Not on file documented as of this encounter Visit Diagnoses Diagnosis Multiple sclerosis (CMS/HCC)- Primary Multiple sclerosis documented in this encounter Care Teams Electrical Prospecting Supervisor Relationship Specialty Start Date End Date Rod Buckner PA-C PCP - General Physician Family Service Caseworker 10/05/20 documented as of this encounter
--- OUTSIDE RECORDS SUMMARY | 2025-02-01 17:50 | XMS_ITS | Encounter Summary ---
Author Organization [employer] Address [address] [place] [address] Care Team Providers Care Vocational Adviser Name Role Phone Rod Buckner PA-C Primary Care Provide r Encounter Details Date Type Department Care Team (Late st Contact Info) Description 12/01/2001 Outpatient Historical Division of Neurology [address] [address] Armida Mendez MD [address] [facility] [address] [place] [address] Social History Tobacco Use Types Packs/Day Years Used Date Smoking Tobacco: Never Assessed Comments Unknown Sex and Gender Information Value Date Recorded Sex Assigned at Not on file Legal Sex Female 5:09 AM COMPUTER GRAPHIC DESIGNER Gender Identity Not on file Sexual Orientation Not on file documented as of this encounter Plan of Treatment Not on file documented as of this encounter Visit Diagnoses Not on filedocumented in this encounter Care Teams Vocational Adviser Relationship Specialty Start Date End Date Rod Buckner PA-C PCP - General Physician Vineyard Worker 10/05/20 documented as of this encounter
--- OUTSIDE RECORDS SUMMARY | 2025-02-01 17:50 | XMS_ITS | Clinical Summary ---
Author Organization [facility] Address [address] [place] [address] Care Team Providers Care Flotation Operator Name Role Phone Rod Buckner PA-C Primary Care Provide r Zuly Miller MD Unavailable [phone] Source Comments [facility],non-owned Affiliates and Associated Physician Practices is amultiple site organization consisting of ambulatory clinics and hospital sitesin [place], [place], [place] and [place]. This disclosure is being madepursuant to the Care Everywhere program and may not contain all information available regarding this patient. Last updated 18.[facility] Allergies Active Allergy Reactions Criticality Noted Date Comments Amphetamine-Dextroampheta mine Palpitations Medium 01/28/2017 Adhesive Sensitivity Rash Medium 11/10/2011 Allergy Palpitations Medium 01/28/2017 Dermolin Nausea and/or Vomiting Low 02/04/2017 Allyl Isothiocyanate Nausea and/or Vomiting Low 02/04/2017 Nwgmaojq-Jiqgevfnz-Autsnc ine Rash Medium 01/28/2017 Armodafinil Unknown High 06/12/2015 Other reaction(s): Neuropathy Bacitracin Unknown Low 02/11/2019 [place] Oil Nausea and/or Vomiting,Unknown Medium 11/10/2011 Cefuroxime [...] fluticasone propionate (FLONASE) 50 MCG/ACT nasal spray [place] 1 (one) spray into each nostril 2 times daily Active Tiotropium [place] 2.5-2.5 MCG/ACT Inhale 1 puff by [...] by mouth once daily Active Probiotic Product (Kidaptive HEALTH PO)Indications:Dy sphagia,Dysphagia , unspecified type,Adenomatous polyp [...] not taking.Reported on 07/27/2024 Cholecalciferol 1.25 MG (21905 UT) Take 50,000 Units by mouth Active tamsulosin (FLOMAX) 0.4 MG capsule 01/02/2021 Active cetirizine (ZYRTEC) 10 MG tablet Take 1 (one) tablet by mouth once daily 04/10/2021 Active [place]-3 Fatty Acids (fish oil) 1000 MG capsule [...] (DCIS), cN0, cM0, G2, ER: Not Assessed, CO: Not Assessed, HER2: Not Assessed) - Signed by Meghana Zapata MD on 09/29/2021 Pathologic stage from 09/29/2021:Stage 0(pTis (DCIS), cN0, cM0, G2, ER: Not Assessed, CO: Not Assessed, HER2: Not Assessed) - Signed [...] from 07/18/2020:Stage IA(cT1b, cN0, cM0, G1, ER+, CO+, HER2-) - Signed by Meghana Zapata MD on 09/29/2021 Pathologic stage from 07/18/2020:Stage IA(pT1b, pN0(sn), cM0, G1, ER+, CO+, HER2- ) - Signed by Meghana Zapata MD on 09/29/2021 Overview (09/29/2021): Left, upper outer, 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 ER pos 100% (strong), CO pos 100% (strong), Her-2 neg (0 on [...] pectoris 09/11/2011 Atherosclerotic heart diseas e of [place] coronary artery without angina pectoris 09/11/2011 Essential [...] 01/12/2025 01/12/2025 Functional diarrhea 01/11/2020 04/24/20 21 Encounters Date Type Department Care Team Description 01/12/2025 Telephone [facility] - GI [address] [place] [address] Rebel Perez MD Results 01/11/2025 Telephone [facility] - GI [address] [place] [address] Janeth Foreman MD MEDICATION REFILL 01/10/2025 Telephone [facility] - Nephrology [address] [place] [address] Shawnee Schwarz, RN Question 01/04/2025 10:30 AM QUALITY ENGINEERING MANAGER - 01/04/2025 11:15 AM QUALITY ENGINEERING MANAGER Surgery [facility] [address] [place] [address] Janeth Foreman MD EGD w/ maya--miralax prep--arrive 90min early 01/04/2025 9:55 AM QUALITY ENGINEERING MANAGER Anesthesia Event [facility] [address] [place] [address] Neel Lopez MD HeathAmy Anes Asst 01/04/2025 8:44 AM QUALITY ENGINEERING MANAGER - 01/04/2025 12:02 PM QUALITY ENGINEERING MANAGER Hospital Encounter [facility] [address] [place] [address] Janeth Foreman MD Surgery General Discharge Disposition: Home or Self Care 01/04/2025 Travel 12/30/2024 Patient Outreach [facility] [address] [place] [address] Yuni Orozco, RN 12/07/2024 Orders Only [facility] [address] [place] [address] Yuni Orozco, RN from Last 3 Months Immunizations Name Administration Dates Next Due Comparameglio.it primary monoval ent 12+ yr 0.3mL Purple cap 09/20/2021,02/26/2021,01/29/2021 FLU VACCINE TRI IIV3 SPLIT P F IM (FLUVIRIN) 11/07/2013 HEP B VACCINE, ADULT 3 DOSE 03/12/1998, 8 INFLUENZA A Q9L6-48 VACCINE 08/30/2013 INFLUENZA VACCINE 09/20/2021,10/13/2014 INFLUENZA VACCINE, [...] Comments Blood Pressure 154/92 01/04/2025 11:30 AM QUALITY ENGINEERING MANAGER Pulse 84 01/04/2025 11:30 AM QUALITY ENGINEERING MANAGER Temperature 36.9 C (98.5 F) 01/04/2025 8:58 AM QUALITY ENGINEERING MANAGER Respiratory Rate 26 01/04/2025 11:3 0 AM QUALITY ENGINEERING MANAGER Oxygen Saturation 99% 01/04/2025 11: 30 AM QUALITY ENGINEERING MANAGER Inhaled Oxygen Concentration 21% 07/06/2020 2 :25 PM CDT Weight 107.4 kg (236 lb 11.2 oz) 01/04/2025 8:58 AM QUALITY ENGINEERING MANAGER Height 160 cm (5' 3 ) 01/04/2025 8:58 AM QUALITY ENGINEERING MANAGER Body Mass Index 41.93 01/04/2025 8:58 AM QUALITY ENGINEERING MANAGER Plan of Treatment Upcoming Encounters Date Type Department Care Team (Late st Contact Info) Description 02/08/2025 10:30 AM CDT [facility] [address] [facility], [facility] [place] [address] Isai Leon MD [address] [place] [address] [phone] 08/21/2025 11:30 AM CDT Office Visit [facility] - General Surgery [address] [place] [phone] Bebe Faulkner MD [address] [facility] [address] [place] [address] Health Maintenance Due Date Last [...] years 1-dose series) 2018 MAMMOGRAM 06/12/2022 06/12/2020, 07/0 07/2020, 03/09/2019, Additional history exists DTAP/TDAP/TD VACCINES (3 - Td or Tdap) 10/30/2022 10/30/2012, 03/12/2006 COVID-19 VACCINE ( season) 2024 08/08/2022, 03/06/2022, 09/20/2021, Additional history exists INFLUENZA VACCINE (#1) 2024 2, 10/15/2021, 09/20/2021, Additional history exists PNEUMOCOCCAL VACCINE 50+ (3 of 3 - PCV20 or PCV21) 10/25/2024 10/25/2019, 09/09/2019, 12/09/2017, Additional history exists DEPRESSION SCREENING 11/30/2024 MEDICARE AWV CALENDAR YEAR 2024 COLON MONITORING 01/04/2027 01/04/2025, 03/2025, 01/27/2024, Additional history exists Colorectal Cancer Screening 01/04/2027 SCREENING FOR DIABETES 08/17/2027 , 02/17/2024, 04/06/2023, Additional history exists COLONOSCOPY - COLON CA SCREENING 01/04/2035 01/04/2025, 01/04/2025, 01/27/2024, Additional history exists BONE DENSITY TESTING [...] Safety General On track( 024 2:13 PM QUALITY ENGINEERING MANAGER) Ml Serra RN Note: Expected end date: Ongoing Interventions: Your nurse will assess your risk for falls/injury each visit Use appropriate and safe transfer methods Medication Management General On track( 024 2:13 PM QUALITY ENGINEERING MANAGER) Ml Serra RN Note: Expected end date: Ongoing Interventions: Take all medications as prescribed Let your doctor know right away about any changes in your medications Medical Devices Implanted Type Area Netbackup Admin Device Identifier Shelf Expiration Date Model / Serial / Lot Pk Guerra Brstbvictor m Tracey Syterry Implanted:Qty: 1 on 06/12/2020 by Maddie Dixon MD at [facility] [place] [facility] 10/05/2020 [id number] / / [id number] Description:titanium biopsy marker Procedures Procedure Name Priority Date/Time Associated Diagnosis Comments ENDOSCOPY, COLON, SCREENING Routine 01/04/2025 10:16 AM QUALITY ENGINEERING MANAGER PATHOLOGY TISSUE Routine 01/04/2025 10:14 AM QUALITY ENGINEERING MANAGER 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 Thanks Received Date Received Time Jul 07, 2024 9:06 AM EGD Routine 01/04/2025 9:12 AM QUALITY ENGINEERING MANAGER COMPREHENSIVE METABOLIC PANEL Routine 08/17/2024 9:56 AM CDT Malignant neoplasm of upper-outer quadrant of left breast in female, estrogen receptor positive (HCC) MAMMO BILAT DIAGNOSTIC Routine 06/07/2020 9:10 AM CDT 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 Increased risk of breast cancer from Last 3 Months or Most Recently Relevant to Health Maintenance Results * ENDOSCOPY, COLON, SCREENING (01/04/2025 10:16 AM QUALITY ENGINEERING MANAGER) Report Endoscopy POC Endoscopy Department Report [...] bowel preparation was evaluated using the BBPS ([place] Bowel Preparation Scale) with scores of: Right [...] non-young portions. Procedure Code(s): --- Professional --- 05611, Colonoscopy, flexible; with biopsy, single or multiple Diagnosis Code(s): --- Professional --- Z86.010, Personal history of colonic polyps K57.30, Diverticulosis of large intestine without perforation or abscess without bleeding CPT copyright 2021 [employer] [employer]. All rights reserved. The codes documented in this report are preliminary and upon director digital catalogue review may be revised to meet current compliance requirements. Janeth Foreman MD ([place]) 01/04/2025 10:58:05 AM Note Initiated On: 01/04/2025 10:16 AM Number of Addenda: 0 [facility] [address] [place], [place] [address] [place] [address] PROVATION 01/04/2025 10:1 6 AM QUALITY ENGINEERING MANAGER Janeth Foreman MD GI PROCEDURE ORDE DEBBY [facility] PROVATION * PATHOLOGY TISSUE (01/04/2025 10:14 AM QUALITY ENGINEERING MANAGER) Case Report Surgical Pathology Report Case: [id number] Authorizing Provider: Janeth Foreman MD Collected: 01/04/2025 10:14 AM Ordering Location: [facility] Received: 01/04/2025 12:42 PM Pathologist: Toya Canales MD Specimens: A) - Polyp Gastric, gastric polyps B) - Colon, random colon bx 01/05/2025 12:43 PM [facility] Final Diagnosis Stomach, gastric polyps, biopsy (A): - Fundic gland polyps - No dysplasia Large intestine, random colon, biopsy (B): - No histopathologic abnormality - No lymphocytic or collagenous colitis 01/05/2025 12:43 PM [facility] Microscopic Description and Comment Microscopic examination substantiates the final diagnosis. 01/05/2025 12:43 PM [facility] Clinical History The patient is a 64-year-old woman with dysphagia who presents for follow-up of gastric polyps and high risk colon cancer surveillance; history of CHEK2 mutation and prior gastric adenomatous polyps. Operative procedure/findings: EGD - few gastric polyps, resected and retrieved. Colonoscopy - normal colon, biopsy to rule out microscopic colitis. 01/05/2025 12:43 PM [facility] Gross Description The requisition [...] in cassette B1. LT 01/05/2025 12:43 PM [facility] Pathologist Location at [facility] 01/05/2025 12:43 PM [facility] Disclaimer The performance characteristics of all immunohistochemical and indirect immunofluorescence stains (if any) cited in this report were determined by the Histopathology Laboratory of [facility]. Some of these tests were developed [...] the attending (teaching) pathologist. 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Y LAB [address] [place] [address], [facility] [phone] * EGD (01/04/2025 9:12 AM QUALITY ENGINEERING MANAGER) Report Endoscopy POC Endoscopy Department Report [...] non-young portions. Procedure Code(s): --- Professional --- 05655, Esophagogastroduode noscopy, flexible, transoral; with transendoscopic balloon dilation of esophagus (less than 30 mm diameter) Diagnosis Code(s): --- Professional --- K31.7, Polyp of stomach and duodenum K31.89, Other diseases of stomach and duodenum R13.10, Dysphagia, unspecified CPT copyright 2021 [employer]. All rights reserved. The codes documented in this report are preliminary and upon director digital catalogue review may be revised to meet current compliance requirements. Janeth Foreman MD ([place]) 01/04/2025 10:24:09 AM Note Initiated On: 01/04/2025 9:12 AM Number of Addenda: [address] [address] [facility] PROVATION 01/04/2025 9:12 AM QUALITY ENGINEERING MANAGER Janeth Foreman MD GI PROCEDURE REESE GUARDADO [facility] PROVATION * (ABNORMAL) COMPREHENSIVE METABOLIC PANEL (08/17/2024 9:56 AM [facility]) BUN 8 7 - 26 mg/dL 08/17/2024 10:45 AM [facility] Creatinine 0.78 0.56 - 0.96 mg/dL 08/17/2024 10:45 AM [facility] Sodium 139 136 - 145 mmol/L 08/17/2024 10:45 AM [facility] Potassium 4.6(H) 3.5 - 4.5 mmol/L 08/17/2024 10:45 AM [facility] Chloride 110(H) 98 - 107 mmol/L 08/17/2024 10:45 AM [facility] CO2 27 22 - 29 mmol/L 08/17/2024 10:45 AM [facility] Glucose 81 70 - 115 mg/dL 08/17/2024 10:45 AM [facility] Calcium 9.4 8.4 - 10.2 mg/dL 08/17/2024 10:45 AM [facility] Protein Total 7.0 6.0 - 8.3 g/dL 08/17/2024 10:45 AM [facility] Albumin 3.5 3.4 - 5.0 g/dL 08/17/2024 10:45 AM [facility] Bilirubin Total 0.4 0.2 - 1.2 mg/dL 08/17/2024 10:45 AM [facility] Alkaline Phosphatase 126 40 - 150 U/L 08/17/2024 10:45 AM [facility] ALT 23 5 - 55 U/L 08/17/2024 10:45 AM [facility] AST 16 5 - 34 U/L 08/17/2024 10:45 AM [facility] Anion Gap 2(L) 6 - 16 08/17/2024 10:45 AM [facility] BUN/Creatinine Ratio 10 7 - 23 08/17/2024 10:45 AM [facility] Osmolality Calculated 285 275 - 295 mOsm/kg 08/17/2024 10:45 AM CDT [facility] Albumin/Globulin Ratio 1.0(L) 1.1 - 2.3 08/17/2024 10:45 AM CDT [facility] eGFR by CKD-EPI 84(L) >=90 mL/min/1.7 3 m2 08/17/2024 10:45 AM CDT [facility] Blood BLOOD SPECIMEN / Unknown Venipuncture / Unknown 08/17/2024 9:56 AM CDT 08/17/2024 10:16 AM CDT Zuly Miller MD LAB - CHEMISTRY REESE GUARDADO [facility] Organization Address City/State/ZIP Co de Phone Number [address] [address], [facility] [phone] * (ABNORMAL) MAMMO BILAT DIAGNOSTIC (06/07/2020 9:10 [...] COMPARISON: Multiple prior mammograms, most recently 2018 [place] imaging HISTORY: 59-year-old female with CHEK 2 [...] [facility] in [facility]. There is no axillary adenopathy. Jennifer Roy MD MAMMO ORDERABLES from Last 3 Months or Most Recently Relevant to Health Maintenance Advance Directives * Full Code (Latest Code Status on File) Date Activated Date Inactivated Comments 09/09/2018 6:14 PM 09/10/2018 6:28 PM Care Teams Flotation Operator Relationship Specialty Start Date End Date Rod Buckner PA-C [address] [place] [address] PCP - General 02/18/19 Zuly Miller MD [address] [facility] [address] [place] [address] Hematology and Oncology 02/17/24
--- OUTSIDE RECORDS SUMMARY | 2025-02-01 17:50 | XMS_ITS | Encounter Summary ---
Author Organization [facility] Address [address] [place] [address] Care Team Providers Care Narrow Gauge Operator Name Role Phone Rod Buckner PA-C Primary Care Provide r Encounter Details Date Type Department Care Team (Late st Contact Info) Description 05/03/2002 Outpatient Historical Division of Neurology [address] [address] Armida Mendez MD [address] [facility] [address] [place] [address] Social History Tobacco Use Types Packs/Day Years Used Date Smoking Tobacco: Never Assessed Comments Unknown Sex and Gender Information Value Date Recorded Sex Assigned at Not on file Legal Sex Female 5:09 AM FIRE HYDRANT MECHANIC Gender Identity Not on file Sexual Orientation Not on file documented as of this encounter Plan of Treatment Not on file documented as of this encounter Visit Diagnoses Not on filedocumented in this encounter Care Teams Narrow Gauge Operator Relationship Specialty Start Date End Date Rod Buckner PA-C PCP - General Physician Berry Grower 10/05/20 documented as of this encounter
--- OUTSIDE RECORDS SUMMARY | 2025-02-01 17:50 | XMS_ITS | Encounter Summary ---
Author Organization [facility] Address 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
--- OUTSIDE RECORDS SUMMARY | 2025-02-01 17:50 | XMS_ITS | Encounter Summary ---
Author Organization [employer] [facility] Address [address] [place] [address] Care Team Providers Care Senior Care Assistant Name Role Phone Rod Buckner PA-C Primary Care Provide r Encounter Details Date Type Department Care Team (Late st Contact Info) Description 11/02/2008 Outpatient Historical [facility] MRI DEPT González Roy MD [address] [place] [phone] Embolism and Thrombosis of Unspecified Site (CMS/HCC) Social History Tobacco Use Types Packs/Day Years Used Date Smoking Tobacco: Never Assessed Comments Unknown Sex and Gender Information Value Date Recorded Sex Assigned at Not on file Legal Sex Female 5:09 AM TRAIN OPERATIONS MANAGER Gender Identity Not on file Sexual Orientation Not on file documented as of this encounter Plan of Treatment Not on file documented as of this encounter Procedures Procedure Name Priority Date/Time Associated Diagnosis Comments US LOW EXT MERLE DUPLEX COMP BILAT Routine 11/02/2008 4:52 PM TRAIN OPERATIONS MANAGER CTA CHEST W WO CONTRAST Timed Study 11/02/2008 9:53 AM TRAIN OPERATIONS MANAGER POC CREATININE Routine 11/02/2008 9:37 AM TRAIN OPERATIONS MANAGER documented in this encounter Results * US LOW EXT MERLE DUPLEX COMP BILAT (11/02/2008 4:52 PM TRAIN OPERATIONS MANAGER) Anatomical Region Laterality Modality Lower Extremity Other Narrative 11/02/2008 4:52 PM TRAIN OPERATIONS MANAGER [place] [address] [place] [address] [email or web address] Peripheral Venous Study Patient: Eugenia Pinzon Study ID: BLOOD FLOW STUDY Gender: F : 1960 Age: 48 years Race: 1 Room: Bed: Height: Study Date: November 02, 2008 Patient status: Outpatient Weight: Access. #: [id number] POC: Teacher Music: Carldexana Ordering: Brandon Attending MD: Brandon Johnitting [...] 16:49:47 Procedure Note Provider, Historical - 11/02/2008 [facility] [address] [place] [address] [email or web address] Noninvasive Vascular Lab Peripheral Venous Study Patient: Eugenia Pinzon Study ID: BLOOD FLOW STUDY Gender: F : 1960 Age: 48 years Race: 1 Room: Bed: Height: Study Date: November 02, 2008 Patient status: Outpatient Weight: Access. #: [id number] POC: Teacher Music: Claudy Ordering: Brandon Attending MD: Brandon Admitting [...] CHEST W WO CONTRAST (11/02/2008 9:53 AM TRAIN OPERATIONS MANAGER) Anatomical Region Laterality Modality Chest Other 11/02/2008 9:53 AM TRAIN OPERATIONS MANAGER Narrative 11/02/2008 2:41 PM TRAIN OPERATIONS MANAGER [facility] [address] [place], [place] [address] Admit Date: 11/02/2008 DRAKE PINZONEVER Joyner Sex: F Admit Prov: GONZÁLEZ ROY Date: 1960 Primary Care Prov: NICKO GARCIA CMRN: [id number] Room: [facility] SSN: [address] [place] [address] IMAGING SERVICES Ordering Prov: N/A Accession Number: [id number] Interpretation CT PULMONARY ANGIOGRAM WITHOUT AND WITH [...] Procedure Note Georgia Rowley MD - 11/02/2008 [facility] [address] [place], [place] [address] Admit Date: 11/02/2008 PINZON EUGENIA L Sex: F Admit Prov: GONZÁLEZ ROY Date: 1960 Primary Care Prov: NICKO GARCIA CMRN: [id number] Room: [facility] SSN: [id number] IMAGING SERVICES Ordering Prov: N/A Interpretation CT [...] Small hiatal hernia. . Dictated by: GEORGIA ROWLYE 11/02/2008 10:19 Electronically signed by: GEORGIA ROWLEY11/02/2008 14:40 Transcribed: 11/02/2008 14:36 SMM González Roy MD CT ORDERABLES Final Result * POC CREATININE (11/02/2008 9:37 AM TRAIN OPERATIONS MANAGER) CREATININE POC 0.8 0.6 - 1.3 mg/dL [facility] GFR, >60 >=60 mL/min/1.7 sq meter [facility] GFR >60 >=60 mL/min/1.7 sq meter [facility] Capillary blood specimen (specimen) 11/02/2008 9:37 AM TRAIN OPERATIONS MANAGER 11/02/2008 9:37 AM TRAIN OPERATIONS MANAGER us González Roy MD POINT OF CARE TESTING Edited INTERFACE SYSTEM Refer to clinic/hospital department [facility] CLIA# [id number] [address] [facility] [place] [address] documented in this encounter Visit Diagnoses Diagnosis Embolism and thrombosis of unspecified site (CMS/HCC) Embolism and thrombosis of unspecified site documented in this encounter Care Teams Senior Care Assistant Relationship Specialty Start Date End Date Rod Buckner PA-C PCP - General Physician Addiction Medicine Physician 10/05/20 documented as of this encounter
--- OUTSIDE RECORDS SUMMARY | 2025-02-01 17:50 | XMS_ITS | Encounter Summary ---
Author Organization [employer] Address [address] [place] [address] Care Team Providers Care Call Center Trainer Name Role Phone Rod Buckner PA-C Primary Care Provide r Encounter Details Date Type Department Care Team (Late st Contact Info) Description 05/04/2003 Outpatient Historical Division of Neurology [address] [address] Armida Mendez MD [address] [facility] [address] [place] [address] Social History Tobacco Use Types Packs/Day Years Used Date Smoking Tobacco: Never Assessed Comments Unknown Sex and Gender Information Value Date Recorded Sex Assigned at Not on file Legal Sex Female 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
--- OUTSIDE RECORDS SUMMARY | 2025-02-01 17:50 | XMS_ITS | Encounter Summary ---
Author Organization [employer] Address [address] [place] [address] Care Team Providers Care Carpenter Maintenance Name Role Phone Rod Buckner PA-C Primary Care Provide r Encounter Details Date Type Department Care Team (Latest Contact Info) Description 11/07/2008 Outpatient Historical [facility] González Roy MD [address] [place] [phone] Unspecified Asthma Social History Tobacco Use Types Packs/Day Years Used Date Smoking Tobacco: Never Assessed Comments Unknown Sex and Gender Information Value Date Recorded Sex Assigned at Not on file Legal Sex Female 5:09 AM FACULTY RESEARCH PHYSICIAN Gender Identity Not on file Sexual Orientation Not on file documented as of this encounter Plan of Treatment Not on file documented as of this encounter Procedures Procedure Name Priority Date/Time Associated Diagnosis Comments BLOOD GAS ARTERIAL WITH HGB & HCT Routine 11/07/2008 9:10 AM FACULTY RESEARCH PHYSICIAN documented in this encounter Results * BLOOD GAS ARTERIAL WITH HGB & HCT (11/07/2008 9:10 AM FACULTY RESEARCH PHYSICIAN) O2 CONC ARTERIAL 21 [facility] FO2HB ABG 96 94 - 98 % [facility] BASE EXCESS ABG -0.8 -2.0 - 3.0 mmol/L [facility] HEMATOCRIT ABG 43.0 35.5 - 44.0 % [facility] PO2 ARTERIAL 87 83 - 108 mm Hg [facility] PH ARTERIAL 7.41 7.35 - 7.45 [facility] SO2 ABG 97 95 - 99 % [facility] HCO3 ARTERIAL 23 22 - 26 mmol/L [facility] HEMOGLOBIN ABG 14.0 11.8 - 14.8 g/dL [facility] PCO2 ARTERIAL 37 35 - 48 mm Hg [facility] Arterial blood specimen (specimen) 11/07/2008 9:10 AM FACULTY RESEARCH PHYSICIAN 11/07/2008 9:29 AM FACULTY RESEARCH PHYSICIAN us González Roy MD ABG ORDERABLES Final Result Performing Organization Address City/State/[facility] Co de Phone Number INTERFACE SYSTEM Refer to clinic/hospital department [facility] CLIA# [id number] [address] [place] [address] documented in this encounter Visit Diagnoses Diagnosis Unspecified asthma(493.90) Unspecified asthma documented in this encounter Care Teams Carpenter Maintenance Relationship Specialty Start Date End Date Rod Buckner PA-C PCP - General Physician Surgery Scheduler 10/05/20 documented as of this encounter
--- OUTSIDE RECORDS SUMMARY | 2025-02-01 17:50 | XMS_ITS | Encounter Summary ---
Author Organization [facility] Address [address] [place] [address] Care Team Providers Care Associate Partner Name Role Phone Rod Buckner PA-C Primary Care Provide r Encounter Details Date Type Department Care Team (Late st Contact Info) Description 10/29/2007 Outpatient Historical [facility] MRI DEPT Armida Mendez MD [address] [facility] [address] [place] [id number] Multiple Sclerosis (CMS/HCC) (Primary Dx) Social History Tobacco Use Types Packs/Day Years Used Date Smoking Tobacco: Never Assessed Comments Unknown Sex and Gender Information Value Date Recorded Sex Assigned at Not on file Legal Sex Female 5:09 AM BUSINESS RELATIONSHIP MANAGER Gender Identity Not on file Sexual Orientation Not on file documented as of this encounter Plan of Treatment Not on file documented as of this encounter Visit Diagnoses Diagnosis Multiple sclerosis (CMS/HCC)- Primary Multiple sclerosis documented in this encounter Care Teams Associate Partner Relationship Specialty Start Date End Date Rod Buckner PA-C PCP - General Physician Dispensary Clerk 10/05/20 documented as of this encounter
--- OUTSIDE RECORDS SUMMARY | 2025-02-01 17:50 | XMS_ITS | Encounter Summary ---
Author Organization [employer] Address 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
--- OUTSIDE RECORDS SUMMARY | 2025-02-01 17:50 | XMS_ITS | Encounter Summary ---
Author Organization [facility] Address [address] [facility] [place] [address] Care Team Providers Care Septic Tank Cleaner Name Role Phone Rod Buckner PA-C Primary Care Provide r Zuly Miller MD Unavailable [phone] Reason for Visit * Reason Onset Date Comments Appointment 03/29/2021 Encounter Details Date Type Department Care Team (Late st Contact Info) Description 03/29/2021 Telephone [facility] [address] [place] [address] Bebe Faulkner MD [address] [facility] [address] [place] [address] Appointment Social History Tobacco Use Types [...] NIPPLES AND BREAST PATIENT CALL BACK NUMBER [phone] IS THE PATIENT ESTABLISHED NO IS THE PATIENT NEW YES DOES THE PATIENT NEED IMAGING WES IS THE APPOINTMENT MORE THAN 2-3 WEEKS OUT? 5.19 IS NEXT AVAIL. WHEN SHOULD I SCHEDULE? documented in this encounter Plan of Treatment Upcoming Encounters Date Type Department Care Team (Late st Contact Info) Description 02/08/2025 10:30 AM CDT Office Visit [facility] - GI [address] [facility] [place] [address] Isai Leon MD [address] [place] [phone] 08/21/2025 11:30 AM CDT Office Visit [facility] - General Surgery [address] [place] [phone] Bebe Faulkner MD [address] [facility] [address] [place] [address] documented as of this encounter Goals Goal Patient Goal Type Associated Problems Recent Progress Patient-Stated? Author Safety General On track( 2:13 PM PBX INSPECTOR) Ml Serra, RN Note: Expected end date: Ongoing Interventions: Your nurse will assess your risk for falls/injury each visit Use appropriate and safe transfer methods Medication Management General On track( 2:13 PM PBX INSPECTOR) No Ml Livingston, RN Note: Expected end date: Ongoing Interventions: Take all medications as prescribed Let your doctor know right away about any changes in your medications documented as of this encounter Visit Diagnoses Not on filedocumented in this encounter Care Teams Septic Tank Cleaner Relationship Specialty Start Date End Date Rod Buckner PA-C [address] [facility] [address] [place], [place] [phone] PCP - General 02/18/19 Zuly Miller MD [address] [facility] [address] [place] [address] Hematology and Oncology 02/17/24 documented as of this encounter
--- OUTSIDE RECORDS SUMMARY | 2025-02-01 17:50 | XMS_ITS | Encounter Summary ---
Author Organization [employer] Address [address] [place] [address] Care Team Providers Care Rug Touch Up Painter Name Role Phone Rod Buckner PA-C Primary Care Provide r Encounter Details Date Type Department Care Team (Latest Contact Info) Description 03/29/2000 Outpatient Historical [facility] NEURO PSYCHOLOGY Beni Beard V., PhD [address] [place] [address] Multiple sclerosis (CMS/HCC) (Primary Dx) Social History Tobacco Use Types Packs/Day Years Used Date Smoking Tobacco: Never Assessed Comments Unknown Sex and Gender Information Value Date Recorded Sex Assigned at Not on file Legal Sex Female 5:09 AM TEAM LEAD Gender Identity Not on file Sexual Orientation Not on file documented as of this encounter Plan of Treatment Not on file documented as of this encounter Visit Diagnoses Diagnosis Multiple sclerosis (CMS/HCC)- Primary Multiple sclerosis documented in this encounter Care Teams Rug Touch Up Painter Relationship Specialty Start Date End Date Rod Buckner PA-C PCP - General Physician Restaurant Cook 10/05/20 documented as of this encounter
--- OUTSIDE RECORDS SUMMARY | 2025-02-01 17:50 | XMS_ITS | Encounter Summary ---
Author Organization [employer] Address [address] [place] [address] Care Team Providers Care Radio Electronics Technician Name Role Phone Rod Buckner PA-C Primary Care Provide r Encounter Details Date Type Department Care Team (Late st Contact Info) Description 09/27/2007 Outpatient Historical [facility] [address] [facility] 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
--- OUTSIDE RECORDS SUMMARY | 2025-02-01 17:50 | XMS_ITS | Referral Summary ---
Author Organization [address] Address [address] [place] [address] Care Team Providers Care Bicycle Courier Name Role Phone Rod Buckner Primary Care Provider Gail Wyatt MD Unavailable [phone] Encounters Date Type Department Care Team Description 12/13/2024 Documentation [facility] Oncology [address] [place] [address] Vero Stokes RN 12/08/2024 Telephone [facility] [address] [facility] [address] [place] [address] Antony Brennan MD 12/08/2024 11:50 AM TELECOM BILLING ANALYST - 12/08/2024 11:59 PM TELECOM BILLING ANALYST Hospital Encounter [facility] - Breast Imaging [address] [place] [address] Floor 8 [place] [address] History of bilateral mastectomy Discharge Disposition: Discharge to home or self care 12/08/2024 10:45 AM TELECOM BILLING ANALYST Office Visit [facility] Surgery [address] [place] [address] [address] [place] [address] Gail Ramos MD PhD Mass of right chest wall (Primary Dx); Encounter for follow-up surveillance of breast cancer; History of bilateral mastectomy; CHEK2-related breast cancer (HCC); Hx of lymph node excision; History of left breast cancer 12/05/2024 Telephone [facility] Surgery [address] [place] [phone] Elisa Villarreal MD 11/11/2024 Telephone [facility] [address] [facility] [address] [place] [address] Shannon Lynn SERAgene 11/08/2024 10:26 AM TELECOM BILLING ANALYST - 11/08/2024 11:59 PM TELECOM BILLING ANALYST Hospital Encounter [facility] PFT Lab [address] [facility] [address], [address] [place] [phone] Asthma in adult, mild persistent, uncomplicated Discharge Disposition: Discharge to home or self care 11/08/2024 11:30 AM TELECOM BILLING ANALYST Office Visit [facility] Pulmonary [address] [facility] Floor 5 [place] [address] Milan Valencia MD Asthma in [...] Camphor-Methyl Salicylate-Soap Nausea And Vomiting Low 02/04/2017 [place] Oil Nausea And Vomiting Medium 01/28/2017 Cefuroxime [...] Neomycin Unknown Medium 06/12/2015 Other reaction(s): Unknown Skobtbnc-Ndgdtoeqm-Wedxsi ine Rash Medium 01/28/2017 Nitrate Analogues Unknown [...] bronchitis, unspecified chronic bronchit is type 04/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 Assessment & Plan (12/08/2019 10:20 AM TELECOM BILLING ANALYST): Continue Emgality monthly Continue Botox Should not [...] depression Assessment & Plan (12/08/2019 10:36 AM TELECOM BILLING ANALYST): Continue following with Dr. Oviedo Asthma 08/24/2015 [...] hypercholesterolemia 09/11/2011 Atherosclerotic heart diseas e of [place] coronary artery without angina pectoris 09/10/2011 Edema 09/10/2011 Essential (primary) hypertension 09/10/2011 Heart failure, unspecified ([facility]) 09/10/2011 Multiple sclerosis ([facility]) 12/07/2008 Assessment & Plan (09/21/2024 10:28 [...] did go to [facility] in the past, but left when she [...] that she completed MRI imaging at an [facility] in September 2022 but I [...] acetate seems reasonable. She received her 1st [employer] COVID-19 vaccine on January 29, 2021. Baclofen [...] discussed. Assessment & Plan (12/08/2019 10:31 AM TELECOM BILLING ANALYST): Discussed the option of oral medication due to lipoatrophy. I told her she should not inject in those areas and that the medication maybe less effective is she is injecting in non-approved sites. Patient declines talk of oral medication options. Continue Copaxone 20mg daily per patient preference Continue exercise Discussed weight loss and nutrition. Will also provide her with Toya Valladares COMPRESSOR STATIONS SUPERINTENDENT phone number Follow up with Dr. Brennan [...] T1bN0(i-)M0, stage IA. ER pos 100% (strong), KS pos 100% (strong), Her-2 neg (0 on [...] 03/0 06/2024 Dysphagia 11/10/2019 02/05/2024 Cardiac angina 11/10/2019 02/05/2024 Intolerance of continuous po sitive airway pressure [...] 09/11/2011 024 SOB (shortness of breath) Immunizations Immunization Administration Dates Next Due H1N1 All Forms [...] on file Legal Sex Female 7:38 PM TELECOM BILLING ANALYST Gender Identity Female 06/29/2020 2:02 PM CDT Sexual Orientation Not on file Last Filed Vital Signs Vital Sign Reading Time Taken Comments Blood Pressure 144/78 12/08/2024 11:14 AM TELECOM BILLING ANALYST Pulse 90 12/08/2024 11:14 AM TELECOM BILLING ANALYST Temperature 36.6 C (97.9 F) 12/08/2024 11:14 AM TELECOM BILLING ANALYST Respiratory Rate 20 12/08/2024 11:1 4 AM TELECOM BILLING ANALYST Oxygen Saturation 96% 12/08/2024 11: 14 AM TELECOM BILLING ANALYST Inhaled Oxygen Concentration - - Weight 108.2 kg (238 lb 9.6 oz) 025 11:14 AM TELECOM BILLING ANALYST Height 160 cm (5' 3 ) 12/08/2024 11:14 AM TELECOM BILLING ANALYST Body Mass Index 42.27 12/08/2024 11:14 AM TELECOM BILLING ANALYST Plan of Treatment Not on file Procedures Procedure Name Priority Date/Time Associated Diagnosis Comments US CHEST BREAST RELATED Schedule Routine, Read Routine (OP Routine) 12/08/2024 12:36 PM TELECOM BILLING ANALYST History of bilateral mastectomy PULMONARY FUNCTION TEST (PFT) Routine 11/08/2024 11:14 AM TELECOM BILLING ANALYST Asthma in adult, mild persistent, uncomplicated DEXA AXIAL SKELETON BONE DENSITY 1 OR MORE SITES Schedule Routine, Read Routine (OP Routine) 05/25/2023 10:54 AM CDT Malignant neoplasm of upper-outer quadrant of left breast in female, estrogen receptor positive (HCC) 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 OVERALL FINAL ASSESSMENT: BI-RADS Category 1: Negative. RECOMMENDATION: Continued clinical follow-up is recommended. Appropriate clinical management is recommended. Negative imaging does not negate the need of a biopsy if high clinical suspicion exists, and a biopsy under palpation may be performed. Electronically signed by: Rivka Rizo M.D. Narrative 12/08/2024 12:37 PM TELECOM BILLING ANALYST EXAMINATION: US CHEST BREAST RELATED HISTORY: 64-year-old female status post mastectomy with the right chest wall lump. COMPARISON: None TECHNIQUE: Directed ultrasound evaluation of the RIGHT breast was performed by a analyst microbiology lab. ULTRASOUND FINDINGS: Area of palpable concern, in the right chest wall, there is no suspicious cystic or solid mass. Procedure Note Rivka Rizo MD - 12/08/2024 EXAMINATION: US CHEST BREAST RELATED HISTORY: 64-year-old female status post mastectomy with the right chest wall lump. COMPARISON: None TECHNIQUE: Directed ultrasound evaluation of the RIGHT breast was performed by a analyst microbiology lab. ULTRASOUND FINDINGS: Area of palpable concern, in [...] Pulmonary Function Test - (11/08/2024 11:14 AM TELECOM BILLING ANALYST) FVC PRE 2.50 L [facility] FVC %PRE PRED 90 % [facility] FEV1 PRE 1.98 L [facility] FEV1 %PRE PRED 91 % [facility] FEV1/FVC PRE 79.0 % [facility] Anatomical Region Laterality Modality PFT 11/08/2024 10:2 9 AM TELECOM BILLING ANALYST Narrative 11/08/2024 1:44 PM TELECOM BILLING ANALYST Table formatting from the original result was not included. [facility] Division of Pulmonary & Critical Care Medicine [address] [place] [address]; [place] [address]; [place] [address]; [phone] Pulmonary Function Laboratory Pulmonary Stress Test Simple/Oxygen [...] Work [distance (m) x body wt (kg)]: 29078 kg.m (normal >60,000kg.m) Oxygen required to maintain [...] with the written final report. PFT performed at:->[facility] Adult PFT Lab- [id number] Procedure:->Spirometry Procedure:->Oxygen [...] %HbO2 is age dependent. However, the [facility] Pulmonary Function Laboratory defines hypoxemia as a PaO2 <56 mm Hg or a %HbO2 <89%. Cheyanne Davis COMPRESSOR STATIONS SUPERINTENDENT PFT ORDERABLES Final Result * Dexa Axial Skeleton Bone Density 1 or 2 Site (05/25/2023 10:54 AM CDT) Anatomical Region Laterality Modality Body N/A Radiographic Ynes ging Narrative 05/27/2023 3:40 PM CDT Patient Name: Eugenia Pinzon Date of : 1960 Date of scan: 05/25/2023 Bone mineral density was performed on a [employer] Discovery Densitometer. Based on machine cross-calibration and [...] by the International Society of Clinical Densitometry. [id number] Gail Wyatt MD IM DXA PROCEDURES F inal Result * Hepatitis panel, acute (12/22/2018 1:58 PM TELECOM BILLING ANALYST) Hep A IgM NON-REACTIVE NON-REAC TIVE [facility] [place] Comment [facility] [place] Comment: WE RECEIVED YOUR HANDWRITTEN TEST ORDER AND PERFORMED AN ACUTE HEPATITIS PANEL. IF THIS IS NOT WHAT YOU INTENDED TO ORDER, PLEASE CONTACT YOUR LOCAL HEAVY EQUIPMENT SERVICE MANAGER IMMEDIATELY SO THAT WE CAN ADJUST OUR [...] INTENDED TO ORDER, PLEASE CONTACT YOUR LOCAL HEAVY EQUIPMENT SERVICE MANAGER IMMEDIATELY SO THAT WE CAN ADJUST OUR BILLING APPROPRIATELY. YOU MAY ALSO INQUIRE ABOUT ALTERNATIVE OR ADDITIONAL TESTING. Hep B core IgM NON-REACTIVE NON-REAC TIVE [facility] [place] [facility] [place] Comment: WE RECEIVED YOUR HANDWRITTEN TEST ORDER AND PERFORMED AN ACUTE HEPATITIS PANEL. IF THIS IS NOT WHAT YOU INTENDED TO ORDER, PLEASE CONTACT YOUR LOCAL HEAVY EQUIPMENT SERVICE MANAGER IMMEDIATELY SO THAT WE CAN ADJUST OUR [...] INTENDED TO ORDER, PLEASE CONTACT YOUR LOCAL HEAVY EQUIPMENT SERVICE MANAGER IMMEDIATELY SO THAT WE CAN ADJUST OUR BILLING APPROPRIATELY. YOU MAY ALSO INQUIRE ABOUT ALTERNATIVE OR ADDITIONAL TESTING. 12/22/2018 1:58 PM TELECOM BILLING ANALYST 12/22/2018 2:01 PM TELECOM BILLING ANALYST Narrative Resulting Agency Comment Performing Organization Information: Site ID: [id number] Name: [facility] Address: [address] [place] [address] Director: Amandeep Suárez D.O., MPH Antony Brennan MD LAB MICROBIOLOGY - GENERAL OR DERABLES Final Result [facility] [place] from Last 3 Months or Most Recently Relevant to Health Maintenance Insurance MEDICARE SOLUTIONS MEDICARE SOLUTIONS Care Teams Bicycle Courier Relationship Specialty Start Date End Date Rod Buckner PA [address] [facility] [address] [place] [address] PCP - General Physician Cat Sitter 02/15/19 Gail Wyatt MD [address] [place] [address] Medical Oncologist/Senior Loan Processor Medical Oncology 07/23/22
--- OUTSIDE RECORDS SUMMARY | 2025-02-01 17:50 | XMS_ITS | Clinical Summary ---
Author Organization [facility] Address [address] [place] [phone] Phone Care Team Providers Care Client Success Manager Name Role Phone Rod Buckner PA-C Primary Care Provide r Allergies Active Allergy Reactions Criticality Noted Date Comments Adhesive Tape-Silicones Unknown 03/08/2012 Amphetamine Aspartate Unknown Low 06/12/2015 Bacitracin Unknown Low 02/11/2019 Other reaction(s): Unknown Other reaction(s): Unknown [place] Oil Unknown 03/08/2012 Cefuroxime Axetil Unknown 03/08/2012 [...] 06/12/2015 Other reaction(s): Unknown Other reaction(s): Unknown Jghwiwlb-Vopxkykyp-Diyrm stepan Rash Medium 01/28/2017 Nitrate Analogues Unknown [...] lump Take 200 mcg by mouth daily home appliance technician. 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 Gender Identity Not on file Sexual [...] season) 2024 09/20/2021, 02/26/2021, 01/29/2021 PNEUMOCOCCAL VACCINE 50+ YEA RS (3 of 3 - PCV20 or PCV21) 10/25/2024 10/25/2019, 09/09/2019, 12/09/2017, Additional history exists Preventative Visit- Commercial 11/30/2024 COLORECTAL SCREENING 01/04/2035 01/04/2025, 01/04/2025, 01/27/2024, Additional history exists Colorectal Cancer Screening 01/04/2035 Procedures Procedure Name Priority Date/Time Associated Diagnosis [...] ACCESS/TRUE BLUE PPO [employer] SELECT Care Teams Client Success Manager Relationship Specialty Start Date End Date Rod Buckner PA-C PCP - General Physician Sap Senior Developer 10/05/20
--- OUTSIDE RECORDS SUMMARY | 2025-02-01 17:50 | XMS_ITS | Encounter Summary ---
Author Organization [facility] Address [address] [place] [address] Care Team Providers Care Jig Filler Name Role Phone Rod Buckner PA-C Primary Care Provide r Encounter Details Date Type Department Care Team (Late st Contact Info) Description 05/11/2007 Outpatient Historical Division of Neurology [address] [address] Armida Mendez MD [address] [facility] [address] [place] [address] Social History Tobacco Use Types Packs/Day Years Used Date Smoking Tobacco: Never Assessed Comments Unknown Sex and Gender Information Value Date Recorded Sex Assigned at Not on file Legal Sex Female 5:09 AM DRAG DOWN Gender Identity Not on file Sexual Orientation Not on file documented as of this encounter Plan of Treatment Not on file documented as of this encounter Visit Diagnoses Not on filedocumented in this encounter Care Teams Jig Filler Relationship Specialty Start Date End Date Rod Buckner PA-C PCP - General Physician Salvage Winder And Inspector 10/05/20 documented as of this encounter
--- OUTSIDE RECORDS SUMMARY | 2025-02-01 17:50 | XMS_ITS | Encounter Summary ---
Author Organization [facility] Address [address] [facility] [place] [address] Care Team Providers Care Usability Architect Name Role Phone Lottie Chin Unavailable Unavailable Rod Buckner PA-C Primary Care Provide r Zuly Miller MD Unavailable [phone] Reason for Visit * Reason Onset Date Comments Med Question 12/13/2018 Encounter Details Date Type Department Care Team (Late st Contact Info) Description 12/13/2018 Telephone [facility] General Internal Medicine [address] [address] Martha Clark MD [address] [facility] [place] [phone] Med Question Social History Tobacco Use Types [...] least a month d/t using [employer] documented in this encounter Plan of Treatment Upcoming Encounters Date Type Department Care Team (Late st Contact Info) Description 02/08/2025 10:30 AM CDT Office Visit [facility] - GI [address] [facility], [place] [phone] Isai Leon MD [address] [place] [phone] 08/21/2025 11:30 AM CDT Office Visit [facility] - General Surgery [address] [place] [phone] Bebe Faulkner MD [address] [facility] [address] [place] [address] documented as of this encounter Goals Goal Patient Goal Type Associated Problems Recent Progress Patient-Stated? Author Safety General On track( 024 2:13 PM DIRECTOR [employer]) No Ml Livingston, RN Note: Expected end date: Ongoing Interventions: Your nurse will assess your risk for falls/injury each visit Use appropriate and safe transfer methods Medication Management General On track( 024 2:13 PM DIRECTOR [employer]) Ml Serra, RN Note: Expected end date: Ongoing Interventions: Take all medications as prescribed Let your doctor know right away about any changes in your medications documented as of this encounter Visit Diagnoses Not on filedocumented in this encounter Care Teams Usability Architect Relationship Specialty Start Date End Date Rod Buckner PA-C [address] [facility] [address] [place] [address] PCP - General 02/18/19 Lottie Chin Inspector Quality Assurance Psychiatry 09/08/18 03/22/19 Zuly Miller MD [address] [facility] [address] [place] [address] Hematology and Oncology 02/17/24 documented as of this encounter
--- OUTSIDE RECORDS SUMMARY | 2025-02-01 17:50 | XMS_ITS | Encounter Summary ---
Author Organization [facility] Address [address] [place] [address] Care Team Providers Care Winding Lathe Operator Name Role Phone Rod Buckner PA-C Primary Care Provide r Encounter Details Date Type Department Care Team (Late st Contact Info) Description 10/16/2008 Outpatient Historical [facility] Hand Therapy [address] [place] [address] Armida Mendez MD [address] [facility] [address] [place] [address] Social History Tobacco Use Types Packs/Day Years Used Date Smoking Tobacco: Never Assessed Comments Unknown Sex and Gender Information Value Date Recorded Sex Assigned at Not on file 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
--- OUTSIDE RECORDS SUMMARY | 2025-02-01 17:50 | XMS_ITS | Encounter Summary ---
Author Organization [facility] Address [address] [place] [address] Care Team Providers Care Environmental Programs Manager Name Role Phone Rod Buckner PA-C Primary Care Provide r Encounter Details Date Type Department Care Team (Late st Contact Info) Description 12/04/2000 Outpatient Historical Division of Neurology [address] [address] Armida Mendez MD [address] [facility] [address] [place] [address] Social History Tobacco Use Types Packs/Day Years Used Date Smoking Tobacco: Never Assessed Comments Unknown Sex and Gender Information Value Date Recorded Sex Assigned at Not on file 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
--- OUTSIDE RECORDS SUMMARY | 2025-02-01 17:50 | XMS_ITS | Encounter Summary ---
Author Organization [email or web address] Address 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
--- OUTSIDE RECORDS SUMMARY | 2025-02-01 17:50 | XMS_ITS | Encounter Summary ---
Author Organization [employer] Address [address] [place] [address] Care Team Providers Care Recruiting Intern Name Role Phone Rod Buckner PA-C Primary Care Provide r Encounter Details Date Type Department Care Team (Late st Contact Info) Description 02/08/2004 Outpatient Historical Division of Neurology [address] [address] Armida Mendez MD [address] [facility] [address] [place] [address] Social History Tobacco Use Types Packs/Day Years Used Date Smoking Tobacco: Never Assessed Comments Unknown Sex and Gender Information Value Date Recorded Sex Assigned at Not on file 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
--- OUTSIDE RECORDS SUMMARY | 2025-02-01 17:50 | XMS_ITS | Encounter Summary ---
Author Organization [facility] Address 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
--- OUTSIDE RECORDS SUMMARY | 2025-02-01 17:50 | XMS_ITS | Patient Health Summary ---
Author Organization [facility] Address [address] [place] [address] Care Team Providers Care Exercise Science Instructor Name Role Phone Rod Buckner PA-C Primary Care Provide r Zuly Miller MD Unavailable [phone] Note from [facility],non-owned Affiliates and Associated Physician Practices is amultiple site organization consisting of ambulatory clinics and hospital sitesin [place], [place], [place] and [place]. This disclosure is being madepursuant to the Care Everywhere program and may not contain all information available regarding this patient. Last updated 18.[facility] Allergies * Amphetamine-Dextroamphetamine(Palpitations) -Medium Criticality * Adhesive Sensitivity(Rash) -Medium Criticality * Allergy(Palpitations) -Medium Criticality * Dermolin(Nausea and/or Vomiting) -Low Criticality * Allyl Isothiocyanate(Nausea and/or Vomiting) -Low Criticality * Xgxnessm-Emgqupdvj-Xgaxstpnx(Rash) -Medium Criticality * Armodafinil(Unknown) -High Criticality * Bacitracin(Unknown) -Low Criticality * Harmony Oil(Nausea and/or Vomiting,Unknown) -Medium Criticality * Cefuroxime(Rash,Unknown) [...] fluticasone propionate (FLONASE) 50 MCG/ACT nasal spray [place] 1 (one) spray into each nostril 2 times daily * Tiotropium [place]-Olodaterol 2.5-2.5 MCG/ACT Inhale 1 puff by mouth [...] by mouth once daily * Probiotic Product ([employer] PO) Take 1 tablet by mouth once [...] needed for Pain * Cholecalciferol 1.25 MG (79013 UT) Take 50,000 Units by mouth * tamsulosin (FLOMAX) 0.4 MG capsule(Started 01/02/2021) * cetirizine (ZYRTEC) 10 MG tablet(Started 04/10/2021) Take 1 (one) tablet by mouth once daily * [place]-3 Fatty Acids (fish oil) 1000 MG capsule [...] (DCIS), cN0, cM0, G2, ER: Not Assessed, TN: Not Assessed, HER2: Not Assessed) - Signed by Meghana Zapata MD on 09/29/2021 Pathologic stage from 09/29/2021:Stage 0(pTis (DCIS), cN0, cM0, G2, ER: Not Assessed, TN: Not Assessed, HER2: Not Assessed) - Signed by Meghana Zapata MD on 09/29/2021 Breast cancer, left, upper-o uter female, estrogen receptor positive 201906/12/2020 Cancer Staging:Clinical stage from 07/18/2020:Stage IA(cT1b, cN0, cM0, G1, ER+, TN+, HER2-) - Signed by Meghana Zapata MD on 09/29/2021 Pathologic stage from 07/18/2020:Stage IA(pT1b, pN0(sn), cM0, G1, ER+, TN+, HER2- ) - Signed by Meghana Zapata [...] Unknown and unspecified causes of morbidity 01/2014 Obesity, unspecified 09/11/2011 Other and unspecified angina pectoris 09/11/2011 Atherosclerotic heart diseas [place] coronary artery without angina pectoris 09/11/2011 Essential (primary) hypertension 09/11/2011 Pure hypercholesterolemia 09/11/2011 Tobacco dependence syndrome 09/11/2011 Edema 09/10/2011 Heart failure, unspecified 09/10/2011 Multiple sclerosis 12/07/2008 FALGUNI (obstructive sleep apnea) 10/06/2000 Dysphagia Adenomatous polyp of colon History of colon polyps Gastric adenoma Resolved Problems Problem Noted Date Diagnosed Date Resolved Date History of esophagogastroduodenoscopy (EGD) 01/12/2025 01/12/2025 Functional diarrhea 01/11/2020 04/24/20 21 Immunizations * [employer] primary monovalent 12+ yr 0.3mL Purple cap(Given 09/20/2021, 02/26/2021, 01/29/2021) * FLU VACCINE TRI IIV3 SPLIT PF IM (FLUVIRIN)(Given 11/07/2013) * HEP B VACCINE, ADULT 3 DOSE(Given 03/12/1998, 01/15/1998) * INFLUENZA A Z0N6-47 VACCINE(Given 08/30/2013) * INFLUENZA VACCINE(Given 09/20/2021, 10/13/2014) [...] Comments Blood Pressure 154/92 01/04/2025 11:30 AM [facility] Pulse 84 01/04/2025 11:30 AM [facility] Temperature 36.9 C (98.5 F) 01/04/2025 8:58 AM [facility] Respiratory Rate 26 01/04/2025 11:3 0 AM [facility] Oxygen Saturation 99% 01/04/2025 11: 30 AM [facility] Inhaled Oxygen Concentration 21% 07/06/2020 2 :25 PM CDT Weight 107.4 kg (236 lb 11.2 oz) 01/04/2025 8:58 AM [facility] Height 160 cm (5' 3 ) 01/04/2025 8:58 AM [facility] Body Mass Index 41.93 01/04/2025 8:58 AM [facility] Medical Devices Implanted Type Area Sub Prior Device Identifier Shelf Expiration Date Model / Serial / Lot Mrkr Securmark Brstbio Celero Sys Implanted:Qty: 1 on 06/12/2020 by Mdadie Kelly MD at [facility] 10/05/2020 SMARK-[id number] / / [id number] Description:titanium biopsy marker Procedures * ENDOSCOPY, COLON, SCREENING(Performed 01/04/2025) * PATHOLOGY TISSUE(Performed 01/04/2025) 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 * TN COLOREC CANC SCRN,COLONOSCPY HI RISK(Performed 01/04/2025) 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 * TN ED EGD FLEX TRANSORAL DX(Performed 01/04/2025) Performed for Monoallelic mutation of CHEK2 [...] 07/27/2024) Performed for Dysphagia, unspecified type * TN ED EGD FLEX TRANSORAL DX(Performed 07/27/2024) Performed [...] unspecified type, History of colon polyps * TN COLOREC CANC SCRN,COLONOSCPY HI RISK(Performed 01/27/2024) Performed for Dysphagia, unspecified type, History of colon polyps * TN ED EGD FLEX TRANSORAL DX(Performed 01/27/2024) Performed for Dysphagia, unspecified type, History of colon polyps * EGD(Performed 01/27/2024) * FL ESOPHAGRAM(Performed 10/15/2023) Performed for Achalasia, Oropharyngeal dysphagia * FL SWALLOWING FUNCTION STUDY(Performed 09/03/2023) Performed for Oropharyngeal dysphagia * ENDOSCOPY, COLON, SCREENING(Performed 08/06/2023) * PATHOLOGY TISSUE(Performed 08/06/2023) Performed for Choking, subsequent encounter, Diarrhea, unspecified type * TN COLOREC CANC SCRN,COLONOSCPY HI RISK(Performed 08/06/2023) Performed for Choking, subsequent encounter, Diarrhea, unspecified type * TN ED EGD FLEX TRANSORAL DX(Performed 08/06/2023) Performed for Choking, subsequent encounter, Diarrhea, unspecified type * EGD(Performed 08/06/2023) * FL ESOPHAGRAM(Performed 06/05/2023) Performed for Achalasia * PATHOLOGY TISSUE(Performed 04/08/2023) Performed for Choking, subsequent encounter * TN ED EGD FLEX TRANSORAL DX(Performed 04/08/2023) Performed [...] of colon, unspecified part of colon * TN ED EGD FLEX TRANSORAL DX(Performed 11/26/2022) Performed [...] of colon, unspecified part of colon * TN ED EGD FLEX TRANSORAL DX(Performed 05/21/2022) Performed [...] of CHEK2 gene in female patient * TN ED EGD FLEX TRANSORAL DX(Performed 12/25/2021) Performed [...] of colon, unspecified part of colon * TN ED EGD FLEX TRANSORAL DX(Performed 05/15/2021) Performed for Gastric adenoma, Adenomatous polyp of colon, unspecified part of colon * EGD(Performed 05/15/2021) * FL ESOPHAGRAM(Performed 09/26/2020) Performed for Esophageal dysphagia, Achalasia * ENDOSCOPY, COLON, SCREENING(Performed 08/22/2020) * PATHOLOGY TISSUE(Performed 08/22/2020) Performed for High risk for colon cancer, Dysphagia, unspecified type, Gastric adenoma, Diarrhea, unspecified type * TN COLONOSCOPY, DIAGNOSTIC(Performed 08/22/2020) Performed for High risk for colon cancer, Dysphagia, unspecified type, Gastric adenoma, Diarrhea, unspecified type * TN ED EGD FLEX TRANSORAL DX(Performed 08/22/2020) Performed [...] 07/06/2020) * ENDOTRACHEAL TUBE NOTE(Performed 07/06/2020) * TN TISSUE SET UP TECHNICIAN PLACEMENT BREAST RECONSTRUCTION(Performed 07/06/2020) 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, Malignant neoplasm of upper-outer quadrant of left breast in female, estrogen receptor positive (HCC) * TN SENTINEL LYMPH NODE BX PROC PERFORM(Performed 07/06/2020) [...] of colon, unspecified part of colon * TN COLONOSCOPY,BIOPSY(Performed 01/25/2020) Performed for 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, Gastric adenoma, Adenomatous polyp of colon, unspecified part of colon * ESOPHAGOGASTRODUODENOSCOPY (EGD) REMOVAL TUMOR/POLYP/LESION (ANY METHOD) (Performed 01/25/2020) Performed for 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, Gastric adenoma, Adenomatous polyp of colon, unspecified part of colon * TN EGD FLEX TRANSORAL W BX SNGL OR MULT(Performed 01/25/2020) Performed for 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, Gastric adenoma, Adenomatous polyp of colon, unspecified part of colon * COLONOSCOPY SCREEN(Performed 01/25/2020) Performed for 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, Gastric adenoma, Adenomatous polyp of colon, unspecified part of colon * TN ED EGD FLEX TRANSORAL DX(Performed 01/25/2020) Performed [...] DILATION(Performed 10/05/2019) Performed for Gastric adenoma * TN ED EGD FLEX TRANSORAL DX(Performed 10/05/2019) Performed for Gastric adenoma * EGD(Performed 10/05/2019) * PATHOLOGY TISSUE EXAM (STL)(Performed 08/10/2019) Performed for Gastric adenoma * ESOPHAGOGASTRODUODENOSCOPY (EGD) BIOPSY(Performed 08/10/2019) Performed for Gastric adenoma * ESOPHAGOGASTRODUODENOSCOPY (EGD) REMOVAL TUMOR/POLYP/LESION (ANY METHOD) (Performed 08/10/2019) Performed for Gastric adenoma * TN ED EGD FLEX TRANSORAL DX(Performed 08/10/2019) Performed for Gastric adenoma * EGD(Performed 08/10/2019) Performed for Gastric adenoma * PATHOLOGY TISSUE EXAM (STL)(Performed 07/13/2019) Performed for Dysphagia, unspecified type, Adenomatous polyp of colon, unspecified part of colon * TN COLONOSCOPY,BIOPSY(Performed 07/13/2019) Performed for Dysphagia, unspecified type, Adenomatous polyp of colon, unspecified part of colon * ESOPHAGOGASTRODUODENOSCOPY (EGD) BIOPSY(Performed 07/13/2019) Performed for Dysphagia, unspecified type, Adenomatous polyp of colon, unspecified part of colon * TN ED EGD FLEX TRANSORAL DX(Performed 07/13/2019) Performed [...] * ENDOSCOPY, COLON, SCREENING (01/04/2025 10:16 AM [facility]) Report Endoscopy POC Endoscopy Department Report _ [...] bowel preparation was evaluated using the BBPS ([place] Bowel Preparation Scale) with scores of: Right [...] non-young portions. Procedure Code(s): --- Professional --- 21840, Colonoscopy, flexible; with biopsy, single or multiple Diagnosis Code(s): --- Professional --- Z86.010, Personal history of colonic polyps K57.30, Diverticulosis of large intestine without perforation or abscess without bleeding CPT copyright 2021 [employer]. All rights reserved. The codes documented in this report are preliminary and upon manager access review may be revised to meet current compliance requirements. Janeth Foreman MD ([facility]) 01/04/2025 10:58:05 AM Note Initiated On: 01/04/2025 10:16 AM Number of Addenda: [phone] [place] [address] PROVATION 01/04/2025 10:1 6 AM [facility] Janeth Foreman MD GI PROCEDURE ORDE DEBBY [facility] Organization Address City/State/ZIP Co de Phone Number [facility] PROVATION * PATHOLOGY TISSUE (01/04/2025 10:14 AM [facility]) Only the most recent of15 resultswithin the time period is included. Case Report Surgical Pathology Report Case: [id number] Authorizing Provider: Janeth Foreman MD Collected: 01/04/2025 10:14 AM Ordering Location: [facility] ENDOSCOPY Received: 01/04/2025 12:42 PM Pathologist: Toya Canales MD Specimens: A) - Polyp Gastric, gastric polyps B) - Colon, random colon bx 01/05/2025 12:43 PM [facility] Final Diagnosis Stomach, gastric polyps, biopsy (A): - Fundic gland polyps - No dysplasia Large intestine, random colon, biopsy (B): - No histopathologic abnormality - No lymphocytic or collagenous colitis 01/05/2025 12:43 PM [facility] Microscopic Description and Comment Microscopic examination substantiates the final diagnosis. 01/05/2025 12:43 PM [facility] Clinical History The patient is a 64-year-old woman with dysphagia who presents for follow-up of gastric polyps and high risk colon cancer surveillance; history of CHEK2 mutation and prior gastric adenomatous polyps. Operative procedure/findings: EGD - few gastric polyps, resected and retrieved. Colonoscopy - normal colon, biopsy to rule out microscopic colitis. 01/05/2025 12:43 PM [facility] Gross Description The requisition [...] in cassette B1. LT 01/05/2025 12:43 PM [facility] Pathologist Location at [facility] 01/05/2025 12:43 PM [facility] Disclaimer The performance characteristics of all immunohistochemical and indirect immunofluorescence stains (if any) cited in this report were determined by the Histopathology Laboratory of [facility]. Some of these tests were developed [...] the attending (teaching) pathologist. 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 Procedure Code(s): --- Professional --- 26593, Esophagogastroduode noscopy, flexible, transoral; with transendoscopic balloon dilation of esophagus (less than 30 mm diameter) Diagnosis Code(s): --- Professional --- K31.7, Polyp of stomach and duodenum K31.89, Other diseases of stomach and duodenum R13.10, Dysphagia, unspecified CPT copyright 2021 [employer]. All rights reserved. The codes documented in this report are preliminary and upon manager access review may be revised to meet current compliance requirements. Janeth Foreman MD ([facility]) 01/04/2025 10:24:09 AM Note Initiated On: 01/04/2025 9:12 AM Number of Addenda: [phone] [place] [address] PROVATION 01/04/2025 9:12 AM [facility] Janeth Foreman MD GI PROCEDURE ORDLeonel GUARDADO [facility] Organization Address City/State/ZIP Co de Phone Number [facility] * VITAMIN D 25-HYDROXY (08/17/2024 9:56 AM CDT) Only the most recent of3 resultswithin the time period is included. Vitamin D, 25 Hydroxy 53.2 30.0 - 80.0 ng/mL 08/17/2024 11:03 AM [facility] Comment: The recommendations for 25-Hydroxy Vitamin [...] Miller MD LAB - CHEMISTRY REESE GUARDADO [facility] Organization Address City/State/ZIP Co de Phone Number [facility] [address] [place] [address], [facility] [phone] * (ABNORMAL) CBC WITH DIFFERENTIAL (08/17/2024 9:56 AM CDT) Only the most recent of20 resultswithin the time period is included. WBC 7.9 4.0 - 10.7 x10E9/L 08/17/2024 10:55 AM [facility] RBC Count 4.60 3.90 - 5.20 x10E12/L 08/17/2024 10:55 AM [facility] Hemoglobin 13.4 11.9 - 15.8 g/dL 08/17/2024 10:55 AM [facility] Hematocrit 41.6 34.8 - 46.1 % 08/17/2024 10:55 AM [facility] MCV 90.4 80.0 - 98.0 fL 08/17/2024 10:55 AM [facility] MCH 29.1 26.7 - 33.6 pg 08/17/2024 10:55 AM [facility] MCHC 32.2 31.7 - 36.3 g/dL 08/17/2024 10:55 AM [facility] RDW-CV 14.4 11.3 - 14.8 % 08/17/2024 10:55 AM [facility] Platelet Count 209 150 - 420 x10E9/L 08/17/2024 10:55 AM [facility] MPV 11.8(H) 7.8 - 11.4 fL 08/17/2024 10:55 AM [facility] Preliminary Absolute Neutrophil 4.28 1.60 - 7.50 x10E9/L 08/17/2024 10:55 AM [facility] Neutrophil % 54.2 41.0 - 74.0 % 08/17/2024 10:55 AM [facility] Lymphocyte % 31.4 17.0 - 47.0 % 08/17/2024 10:55 AM [facility] Monocyte % 9.3 3.0 - 11.0 % 08/17/2024 10:55 AM [facility] Eosinophil % 3.9 0.0 - 7.0 % 08/17/2024 10:55 AM [facility] Basophil % 0.6 0.0 - 1.6 % 08/17/2024 10:55 AM [facility] Immature Granulocytes % 0.6 0.0 - 1.0 % 08/17/2024 10:55 AM [facility] Neutrophil Absolute 4.28 1.60 - 7.50 x10E9/L 08/17/2024 10:55 AM [facility] Lymphocyte Absolute 2.49 1.00 - 4.40 x10E9/L 08/17/2024 10:55 AM [facility] Monocyte Absolute 0.74 0.15 - 1.00 x10E9/L 08/17/2024 10:55 AM [facility] Eosinophil Absolute 0.31 0.00 - 0.60 x10E9/L 08/17/2024 10:55 AM [facility] Basophil Absolute 0.05 0.00 - 0.13 x10E9/L 08/17/2024 10:55 AM [facility] Blood BLOOD SPECIMEN / Unknown Venipuncture / Unknown 08/17/2024 9:56 AM T 08/17/2024 10:46 AM CDT Zuly Miller MD LAB - HEMATOLOGY ORD ERABLES [facility] [address] [place] [address], [facility] [phone] * (ABNORMAL) COMPREHENSIVE METABOLIC PANEL (08/17/2024 9:56 AM CDT) Only the most recent of7 resultswithin the time period is included. BUN 8 7 - 26 mg/dL 08/17/2024 10:45 AM [facility] Creatinine 0.78 0.56 - 0.96 mg/dL 08/17/2024 10:45 AM [facility] Sodium 139 136 - 145 mmol/L 08/17/2024 10:45 AM [facility] Potassium 4.6(H) 3.5 - 4.5 mmol/L 08/17/2024 10:45 AM [facility] Chloride 110(H) 98 - 107 mmol/L 08/17/2024 10:45 AM [facility] CO2 27 22 - 29 mmol/L 08/17/2024 10:45 AM [facility] Glucose 81 70 - 115 mg/dL 08/17/2024 10:45 AM [facility] Calcium 9.4 8.4 - 10.2 mg/dL 08/17/2024 10:45 AM [facility] Protein Total 7.0 6.0 - 8.3 g/dL 08/17/2024 10:45 AM [facility] Albumin 3.5 3.4 - 5.0 g/dL 08/17/2024 10:45 AM [facility] Bilirubin Total 0.4 0.2 - 1.2 mg/dL 08/17/2024 10:45 AM [facility] Alkaline Phosphatase 126 40 - 150 U/L 08/17/2024 10:45 AM [facility] ALT 23 5 - 55 U/L 08/17/2024 10:45 AM [facility] AST 16 5 - 34 U/L 08/17/2024 10:45 AM [facility] Anion Gap 2(L) 6 - 16 08/17/2024 10:45 AM CDT [facility] BUN/Creatinine Ratio 10 7 - 23 08/17/2024 10:45 AM T [facility] Osmolality Calculated 285 275 - 295 mOsm/kg 08/17/2024 10:45 AM [facility] Albumin/Globulin Ratio 1.0(L) 1.1 - 2.3 08/17/2024 10:45 AM [facility] eGFR by CKD-EPI 84(L) >=90 mL/min/1.7 3 m2 08/17/2024 10:45 AM [facility] Blood BLOOD SPECIMEN / Unknown Venipuncture / Unknown 08/17/2024 9:56 AM CDT 08/17/2024 10:16 AM CDT Zuly Miller MD LAB - CHEMISTRY REESE GUARDADO [facility] Organization Address City/State/ZIP Co de Phone Number [facility] [address] [place] [address], [facility] [phone] * EGD (07/27/2024 11:05 AM CDT) Report Endoscopy POC Endoscopy Department Report __ _ Patient Name: Eugenia Pinzon Procedure Date: 07/27/2024 11:05 AM Date of : 1960 Classification: Outpatient Gender: Female Ethnicity: Not or Race: White __ _ Providers: Janeth Fragoso), MD Referring MD: Procedure: Upper GI endoscopy [...] pathology results. - Repeat upper endoscopy in 05-11 for surveillance of multiple polyps and for return of symptoms. Attending Participation: I personally performed the entire procedure. Procedure Code(s): --- Professional --- 89700, Esophagogastroduode noscopy, flexible, transoral; with removal of tumor(s), polyp(s), or other lesion(s) by snare technique 24953, Esophagogastroduode noscopy, flexible, transoral; with transendoscopic balloon dilation of esophagus (less than 30 mm diameter) Diagnosis Code(s): --- Professional --- K31.7, Polyp of stomach and duodenum R13.10, Dysphagia, unspecified CPT copyright 2021 [employer]. All rights reserved. The codes documented in this report are preliminary and upon manager access review may be revised to meet current compliance requirements. Janeth Foreman MD ([facility]) 07/27/2024 11:44:22 AM Note Initiated On: 07/27/2024 11:05 AM Number of Addenda: [address] [employer]OVATION 07/27/2024 11:0 5 AM CDT Janeth Foreman MD GI PROCEDURE ORDE [facility] [place] * ENDOSCOPY, COLON, SCREENING (01/27/2024 12:33 PM [facility]) Report Endoscopy POC Endoscopy Department Report _ Patient Name: Eugenia Pinzon Procedure Date: 01/27/2024 12:33 PM Date of : 1960 Classification: Outpatient Gender: Female Ethnicity: Not or Race: White _ Providers: [facility] breanne Referring MD: Procedure: Colonoscopy Indications: High risk [...] or abscess without bleeding CPT copyright 2021 [employer]. All rights reserved. The codes documented in this report are preliminary and upon manager access review may be revised to meet current compliance requirements. Janeth Foreman MD ([facility]) 01/27/2024 1:04:40 PM Note Initiated On: 01/27/2024 12:33 PM Number of Addenda: [address] [employer]ATION 01/27/2024 12:3 3 PM [facility] Janeth Foreman MD GI PROCEDURE [facility] [employer]OVATION * EGD (01/27/2024 11:54 AM [facility]) Report Endoscopy POC Endoscopy Department Report __ _ Patient Name: Eugenia Pinzon Procedure Date: 01/27/2024 11:54 AM Date of : 1960 Classification: Outpatient Gender: Female Ethnicity: Not or Race: White __ _ Providers: [facility] Hospital[facility] Louie Referring MD: Procedure: Upper GI endoscopy Indications: [...] entire procedure. Procedure Code(s): --- Professional --- 64108, Esophagogastroduode noscopy, flexible, transoral; with removal of tumor(s), polyp(s), or other lesion(s) by snare technique [id number], Esophagogastroduode noscopy, flexible, transoral; with transendoscopic balloon dilation of esophagus (less than 30 mm diameter) Diagnosis Code(s): --- Professional --- K31.7, Polyp of stomach and duodenum R13.10, Dysphagia, unspecified CPT copyright 2021 [employer]. All rights reserved. The codes documented in this report are preliminary and upon manager access review may be revised to meet current compliance requirements. Janeth Foreman MD ([facility]) 01/27/2024 1:07:20 PM Note Initiated On: 01/27/2024 11:54 AM Number of Addenda: [phone] [place] [address] [employer]OVATION 01/27/2024 11:5 4 AM [facility] Janeth Foreman MD GI PROCEDURE ORDE [facility] Organization Address City/State/ZIP Co de Phone Number [facility] [employer]ATION * FL ESOPHAGRAM (10/15/2023 10:51 AM [facility]) Only the most recent of6 resultswithin the time period is included. Anatomical Region Laterality Modality Chest Radiographic Ynes ging 10/15/2023 5:40 PM [facility] Impressions 10/16/2023 3:31 PM [facility] IMPRESSION: Slightly incomplete emptying of the esophagus, similar to the prior exam of 06/05/2023. Marked difficulty swallowing a barium pill. Otherwise normal transit of the pill. FLUOROSCOPY DOSE: 64.6 mGy Reference air kerma (joser). > Interpreting Provider: Maricruz Bethea MD on 10/16/2023 3:31 PM Narrative 10/16/2023 3:31 PM [facility] PROCEDURE: FL ESOPHAGRAM (timed barium swallow and [...] DATE/TIME OF EXAM: 09/03/2023 9:59 AM, LOCATION [facility] INDICATION: R13.12: Oropharyngeal dysphagia ADDITIONAL CLINICAL INFORMATION: [...] Report dictated by Ching Casanova DO (residential field manager). I, Jayro Lawson MD have personally reviewed and interpreted this examination/study. > Interpreting Provider: Jayro Lawson MD on 09/03/2023 2:22 PM Procedure Note Jayro Lawson MD - 09/03/2023 PROCEDURE: FL SWALLOWING FUNCTION STUDY, DATE/TIME OF EXAM: 09/03/2023 9:59 AM, LOCATION [facility] INDICATION: R13.12: Oropharyngeal dysphagia ADDITIONAL CLINICAL INFORMATION: [...] Report dictated by Ching Casanova DO (residential field manager). I, Jayro Lawson MD have personally reviewed and interpreted this examination/study. > Interpreting Provider: Jayro Lawson MD on 09/03/2023 2:22 PM Janeth Foreman MD FLUOROSCOPY ORDER ERLIN * ENDOSCOPY, COLON, [...] or abscess without bleeding CPT copyright 2021 [employer]. All rights reserved. The codes documented in this report are preliminary and upon manager access review may be revised to meet current compliance requirements. Janeth Foreman MD (Labundy) 08/06/2023 11:03:51 AM Note Initiated On: 08/06/2023 10:34 AM Number of Addenda: [id number] [place] [address] PROVATION 08/06/2023 10:3 4 AM CDT Janeth Foreman MD GI PROCEDURE ORDE DEBBY [facility] PROVATION * EGD (08/06/2023 10:00 AM CDT) Report Endoscopy POC Endoscopy Department Report _ Patient Name: Eugenia Pinzon Procedure Date: 08/06/2023 10:00 AM Date of : 1960 Classification: Outpatient Gender: Female Ethnicity: Not or Race: White _ Providers: Janeth Foreman MD (Labundy), Tenzin Weiss (Fellow) Referring MD: Procedure: Upper [...] non-young portions. 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 All rights reserved. The codes documented in this report are preliminary and upon manager access review may be revised to meet current compliance requirements. Janeth Foreman MD (Labundy) 08/06/2023 11:08:39 AM Note Initiated On: 08/06/2023 10:00 AM Number of Addenda: [id number] [place] [address] PROVATION 08/06/2023 10:0 0 AM CDT Janeth Foreman MD GI PROCEDURE REESE GUARDADO [facility] Organization Address City/State/ZIP Co de Phone Number [facility] PROVATION * EGD (04/08/2023 10:21 AM [...] entire procedure. Procedure Code(s): --- Professional --- 02899, Esophagogastroduode noscopy, flexible, transoral; with removal of tumor(s), polyp(s), or other lesion(s) by snare technique 59194, Esophagogastroduode noscopy, flexible, transoral; with transendoscopic balloon dilation of esophagus (less than 30 mm diameter) Diagnosis Code(s): --- Professional --- K31.7, Polyp of stomach and duodenum R13.10, Dysphagia, unspecified CPT copyright 2019 [employer]. All rights reserved. The codes documented in this report are preliminary and upon manager access review may be revised to meet current compliance requirements. Janeth Foreman MD (Labundy) 04/08/2023 11:05:07 AM Note Initiated On: 04/08/2023 10:21 AM Number of Addenda: [address] PROVATION 04/08/2023 10:2 1 AM CDT [facility] Foreman [facility] Address City/State/ZIP Co de Phone Number [facility] PROVATION * DERMATOPATHOLOGY (01/15/2023 12:00 AM [facility]) Case Report Dermatopathology Report Case: [id number] Authorizing Provider: Dario Pérez MD Collected: 01/15/2023 12:00 AM Ordering Location: [facility] Derm[facility] Lab Received: 01/15/2023 04:51 PM Pathologist: Goldie Choudhary MD Specimen: Skin, left thumb 11:02 AM [facility] DERMATOPATHOLOGY [facility]ORATORY Final Diagnosis Specimen A. SKIN, left thumb: [place] (B07.8) 11:02 AM [facility] DERMATOPATH[facility]Y [facility] Clinical History Patch/plaque eczema, contact, Reena, [facility], [place] 11:02 AM [facility]ERMAT[facility] Gross Description Specimen A: Received is one formalin filled container labeled with the patient's name and designated left thumb. The specimen consists of a shave biopsy measuring 8x4x1 mm. Jar 0. 11:02 AM [facility] DERMATOPATHOLOGY [facility]OR[facility]ORY Microscopic Description Specimen A. SKIN, left thumb: There is gently papillated epidermal hyperplasia, hypergranulosis, and laminated hyperorthokeratosis . 11:02 AM [facility] DERMATOPATHOLOGY [facility]ORATORY Disclaimer An external and internal positive and negative controls are appropriate for the histochemical, immunohistochemical and immunofluorescence stain(s) in this case (if any), except where stated explicitly. The performance characteristics of the stain(s) cited in this report were developed and its performance characteristic determined by the Dermatopathology Laboratory at [facility], directed by Dr. Ced Salazar. These tests need not be, and therefore are not, approved by the [place] Food and Drug Administration. The tests are used for clinical purposes. Billing Codes Specimen Charges Stain Charges 36506 1 11:02 AM [facility] DERMATOPATHOLOGY [facility]ORATORY Embedded Images 11:02 AM [facility] DERMATOPATH[facility]Y [facility]ORY Pathology/Cytolog y TISSUE SPECIMEN FROM SKIN / Unknown 01/15/2023 01/15/2023 4:51 PM [facility] Dario Pérez MD LAB - PATHOLOGY/CYTO LOGY ORDERABLES DERMATOPATHOLOGY LABORATORY [facility] - Department of Dermatology [address], [address] [phone] * EGD (11/26/2022 9:59 AM [facility]) Report Endoscopy POC Endoscopy Department Report _ [...] 11/26/2022 9:59 AM Number of Addenda: [address] [address] [facility] PROVATION 11/26/2022 9:59 AM [facility] Janeth Foreman MD GI PROCEDURE REESE GUARDADO [facility] Organization Address City/State/ZIP Co de Phone Number [facility] PROVATION * EGD (11/26/2022 8:29 AM [facility]) Report Endoscopy POC Endoscopy Department Report __ [...] non-young portions. Procedure Code(s): --- Professional --- 87370, Esophagogastroduode noscopy, flexible, transoral; with transendoscopic balloon dilation of esophagus (less than 30 mm diameter) Diagnosis Code(s): --- Professional --- K31.7, Polyp of stomach and duodenum R13.10, Dysphagia, unspecified CPT copyright 2019 [employer]. All rights reserved. The codes documented in this report are preliminary and upon manager access review may be revised to meet current compliance requirements. Janeth Foreman MD (Labundy) 11/26/2022 10:41:14 AM Note Initiated On: 11/26/2022 8:29 AM Number of Addenda: 0 [facility] [address] [facility], [place] [address] [facility] PROVATION 11/26/2022 8:29 AM [facility] Janeth Foreman MD GI PROCEDURE REESE GUARDADO [facility] Organization Address City/State/ZIP Co de Phone Number [facility] * PATHOLOGY/CYTOLOGY REPORT ORDER (11/12/2022) Only the [...] Not or Race: White _ Providers: Janeth GreenundMD breanne, Allan Myles (Fellow) Referring MD: Rod Buckner [...] or abscess without bleeding CPT copyright 2019 [employer]. All rights reserved. The codes documented in this report are preliminary and upon manager access review may be revised to meet current compliance requirements. Janeth Foreman MD (Labundy) 05/21/2022 11:50:14 AM Note Initiated On: 05/21/2022 11:15 AM Number of Addenda: [phone] [place] [address] PROVATION 05/21/2022 11:1 5 AM CDT Janeth Foreman MD GI PROCEDURE REESE GUARDADO [facility] Organization Address City/State/ZIP Co de Phone Number [facility] PROVATION * EGD (05/21/2022 10:45 AM [...] non-young portions. Procedure Code(s): --- Professional --- 38726, Esophagogastroduode noscopy, flexible, transoral; with removal of tumor(s), polyp(s), or other lesion(s) by snare technique 00091, Esophagogastroduode noscopy, flexible, transoral; with insertion of guide wire followed by passage of dilator(s) through esophagus over guide wire Diagnosis Code(s): --- Professional --- K31.7, Polyp of stomach and duodenum R13.10, Dysphagia, unspecified CPT copyright 2019 [employer]. All rights reserved. The codes documented in this report are preliminary and upon manager access review may be revised to meet current compliance requirements. Janeth Foreman MD (Labundy) 05/21/2022 11:25:29 AM Note Initiated On: 05/21/2022 10:45 AM Number of Addenda: [address] PROVATION 05/21/2022 10:4 5 AM CDT Janeth Foreman MD [facility]OVATION * EGD (12/25/2021 10:38 AM [facility]) Report Endoscopy POC Endoscopy Department Report __ [...] entire procedure. Procedure Code(s): --- Professional --- 95282, Esophagogastroduode noscopy, flexible, transoral; with insertion of guide wire followed by passage of dilator(s) through esophagus over guide wire Diagnosis Code(s): --- Professional --- K31.7, Polyp of stomach and duodenum R13.10, Dysphagia, unspecified CPT copyright 2019 [employer]. All rights reserved. The codes documented in this report are preliminary and upon manager access review may be revised to meet current compliance requirements. ___ Janeth Titus MD 12/25/2021 11:19:13 AM Note Initiated On: 12/25/2021 10:38 AM Number of Addenda: [id number] [place] [address] PROVATION 12/25/2021 10:3 8 AM [facility] Janeth Foreman MD GI PROCEDURE ORDLeonel GUARDADO [facility] Organization Address City/State/ZIP Co de Phone Number [facility] PROVATION * ENDOSCOPY, COLON, SCREENING (12/25/2021 10:37 AM [facility]) Report Endoscopy POC Endoscopy Department Report _ [...] and oxygen saturations were monitored continuously. The CF-[id number] was introduced through the anus and advanced [...] non-young portions. Procedure Code(s): --- Professional --- 24474, Colonoscopy, flexible; with biopsy, single or multiple Diagnosis Code(s): --- Professional --- Z86.010, Personal history of colonic polyps K64.9, Unspecified hemorrhoids K63.5, Polyp of colon CPT copyright 2019 [employer]. All rights reserved. The codes documented in this report are preliminary and upon manager access review may be revised to meet current compliance requirements. ____ Janeth Titus MD 12/25/2021 11:48:04 AM Note Initiated On: 12/25/2021 10:37 AM Number of Addenda: [address] [address] [facility] PROVATION 12/25/2021 10:3 7 AM [facility] Janeth Foreman MD GI PROCEDURE REESE GUARDADO [facility] PROVATION * ENDOSCOPY, COLON, SCREENING (05/15/2021 9:32 AM [...] entire procedure. Procedure Code(s): --- Professional --- 52003, Colonoscopy, flexible; with biopsy, single or multiple Diagnosis Code(s): --- Professional --- Z86.010, Personal history of colonic polyps K64.8, Other hemorrhoids K63.5, Polyp of colon K57.30, Diverticulosis of large intestine without perforation or abscess without bleeding CPT copyright 2019 [employer]. All rights reserved. The codes documented in this report are preliminary and upon manager access review may be revised to meet current compliance requirements. ____ Janeth Titus MD 05/15/2021 10:08:37 AM Note Initiated On: 05/15/2021 9:32 AM Number of Addenda: [id number] [place] [address] PROVATION 05/15/2021 9:32 AM CDT Janeth Foreman MD GI PROCEDURE TYLORLeonel CONRADVISH [facility] PROVATION * EGD (05/15/2021 8:51 AM CDT) [...] non-young portions. Procedure Code(s): --- Professional --- 24520, Esophagogastroduode noscopy, flexible, transoral; with removal of tumor(s), polyp(s), or other lesion(s) by snare technique 44823, Esophagogastroduode noscopy, flexible, transoral; with insertion of guide wire followed by passage of dilator(s) through esophagus over guide wire Diagnosis Code(s): --- Professional --- K31.7, Polyp of stomach and duodenum R13.10, Dysphagia, unspecified CPT copyright 2019 [employer]. All rights reserved. The codes documented in this report are preliminary and upon manager access review may be revised to meet current compliance requirements. ___ Janeth Titus MD 05/15/2021 10:13:39 AM Note Initiated On: 05/15/2021 8:51 AM Number of Addenda: 0 [facility] [address] [place], [place] [id number] [place] [address] PROVATION 05/15/2021 8:51 AM CDT Janeth Foreman MD GI PROCEDURE ORDE DEBBY [facility] PROVATION * ENDOSCOPY, COLON, SCREENING (08/22/2020 3:05 [...] and oxygen saturations were monitored continuously. The CF-[id number] was introduced through the anus and advanced [...] or abscess without bleeding CPT copyright 2019 [employer]. All rights reserved. The codes documented in this report are preliminary and upon manager access review may be revised to meet current compliance requirements. ____ Janeth Titus MD 08/22/2020 3:32:21 PM Note Initiated On: 08/22/2020 3:05 PM Number of Addenda: 0 [facility] [address] [facility], [place] [address] [facility]OVATION 08/22/2020 3:05 PM CDT Janeth Foreman MD GI PROCEDURE REESE GUARDADO [facility] * ENDOSCOPY, COLON, SCREENING (08/22/2020 2:19 PM [...] specimen was done by the nurse and library cataloging technician using the patient's name, date and [...] non-young portions. Procedure Code(s): --- Professional --- 93604, Esophagogastroduode noscopy, flexible, transoral; with transendoscopic balloon dilation of esophagus (less than 30 mm diameter) Diagnosis Code(s): --- Professional --- K31.7, Polyp of stomach and duodenum CPT copyright 2019 [employer]. All rights reserved. The codes documented in this report are preliminary and upon manager access review may be revised to meet current compliance requirements. ___ Janeth Titus MD 08/22/2020 3:33:45 PM Note Initiated On: 08/22/2020 2:19 PM Number of Addenda: 0 [facility] [address] [place] [address] [facility]OVATION 08/22/2020 2:19 PM CDT Janeth Foreman MD GI PROCEDURE ORDE DEBBY [facility] PROVATION * BASIC METABOLIC PANEL (CALCIUM TOTAL) (08/22/2020 1:49 PM CDT) Only the most recent of10 resultswithin the time period is included. BUN 12 7 - 26 mg/dL 08/22/2020 2:44 PM [facility] Creatinine 0.8 0.6 - 1.2 mg/dL 08/22/2020 2:44 PM [facility] Sodium 140 136 - 145 mmol/L 08/22/2020 2:44 PM [facility] Potassium 3.8 3.5 - 4.5 mmol/L 08/22/2020 2:44 PM [facility] Chloride 103 98 - 107 mmol/L 08/22/2020 2:44 PM [facility] CO2 25 22 - 29 mmol/L 08/22/2020 2:44 PM [facility] Glucose 104 70 - 115 mg/dL 08/22/2020 2:44 PM [facility] Calcium 9.9 8.4 - 10.2 mg/dL 08/22/2020 2:44 PM [facility] Anion Gap 16 8 - 18 08/22/2020 2:44 PM [facility] BUN/Creatinine Ratio 15 7 - 23 08/22/2020 2:44 PM [facility] Osmolality Calculated 290 270 - 300 mOsm/kg 08/22/2020 2:44 PM CDT [facility] eGFR >60 >60 mL/min/1.7 3 m2 08/22/2020 2:44 PM CDT [facility] Blood BLOOD SPECIMEN / Unknown Venipuncture / Unknown 08/22/2020 1:49 PM CDT 08/22/2020 2:08 PM CDT Janeth Foreman MD [facility] [address] [place] [address], [facility] [phone] * FSH (08/16/2020 11:08 AM CDT) FSH 15.5 IU/L 08/18/2020 5:22 AM CDT [facility] ([facility]) Comment: INTERPRETIVE INFORMATION: Follicle Stimulating Hormone Females: Follicular: 3.5-12.5 IU/L Mid-Cycle: 4.7-21.5 IU/L Luteal: 1.7-7.7 IU/L Postmenopausal: 25.8-134.8 IU/L REFERENCE INTERVAL: Follicle Stimulating Hormone Access complete set of age- and/or gender-specific reference intervals for this test in the [facility] Test Directory ([employer]). Performed By: [email or web address] [address] [place] [address] Print Production Coordinator: Marissa Bernstein MD Blood BLOOD SPECIMEN / Unknown Lab Venipuncture / Unknown 08/16/2020 11:08 AM CDT 08/16/2020 11:26 AM CDT Arlin Pruitt MD LAB - CHEMISTRY REESE GUARDADO [facility] [employer] [facility]) [address] * ESTRADIOL (08/16/2020 11:08 AM CDT) Estradiol 18.4 pg/mL 08/17/2020 11:09 AM CDT [facility] ([facility]) Comment: Adult Female: Follicular phase 12.5 - 166.0 Ovulation phase 85.8 - 498.0 Luteal phase 43.8 - 211.0 Postmenopausal <6.0 - 54.7 1st trimester 215.0 - >4300.0 Alexis ECLIA methodology Blood BLOOD SPECIMEN / Unknown Lab Venipuncture / Unknown 08/16/2020 11:08 AM CDT 08/16/2020 11:26 AM CDT Narrative [facility] ([facility]) - 08/17/2020 11:09 AM CDT Performed at: - [facility] [address] [place], [place] [id number] Assistant Toddler Teacher: Luis Ramírez PhD, Phone: [phone] Arlin Pruitt MD LAB - CHEMISTRY REESE GUARDADO [facility] ([facility]) [address] [place] [address], [facility] * CARDIAC EKG ORDER (07/09/2020 4:10 PM CDT) Narrative 07/09/2020 4:10 PM CDT Ordered by an unspecified provider. Scanned Document CARDIAC SERVICES ORD ERABLES * ETT LINE PERFORMABLE (07/06/2020 8:23 AM CDT) Narrative Brian Pena DO - 07/06/2020 8:23 AM CDT Brian Pena DO 07/06/2020 8:23 AM Endotracheal Tube Placement: Patient Location: OR. Intubation Event Date/Time: 07/06/2020 7:52 AM Procedure: intubation (34766). Procedure Section: Sedation: IV sedation. Indications for [...] procedure Fidelina Liu MD GENERAL ANESTHESIA O BRANDON * ETT LINE PERFORMABLE (07/06/2020 8:18 AM CDT) Narrative Brian Pena DO - 07/06/2020 8:18 AM CDT Brian Pena DO 07/06/2020 8:19 AM Endotracheal Tube Placement: Patient Location: OR. Procedure: intubation (12985). Procedure Section: Sedation: IV sedation. Indications for [...] No. Staff Section Anesthesia Provider: Brian Pena DO Performed the procedure Fidelina Liu MD GENERAL ANESTHESIA O BRANDON * NM SENTINEL NODE INJECTION (07/05/2020 3:47 PM CDT) Anatomical Region Laterality Modality Breast, Upper Extremity, Other N [facility] Medicine 07/05/2020 3:32 PM CDT Impressions 07/05/2020 4:00 PM CDT IMPRESSION: Successful placement of 4 periareolar injections in the left breast. Dictated by Nohelia Zhang MD (residential field manager). This report was approved by Nohelia Zhang on 07/05/2020 3:47 PM . I, Dr. SELINA NORIEGA M.D. have personally reviewed and interpreted this examination/study. This report was electronically signed by SELINA NORIEGA M.D. on 07/05/2020 4:00 PM . Narrative 07/05/2020 4:00 PM CDT PROCEDURE: Lymphoscintigraphy - Oolitic lymph node detection. HISTORY: 59-year-old female with [...] Noriega MD - 07/05/2020 PROCEDURE: Lymphoscintigraphy - Oolitic lymph node detection. HISTORY: 59-year-old female with [...] breast. Dictated by Nohelia Zhang MD (residential field manager). This report was approved by Nohelia Zhang on 07/05/2020 3:47 PM . I, Dr. SELINA NORIEGA M.D. have personally reviewed and interpreted this examination/study. This report was electronically signed by SELINA NORIEGA M.D. on 07/05/2020 4:00 PM . Jennifer Roy MD NM ORDERABLES * SARS-COV-2 (COVID-19) IN HOUSE (07/04/2020 11:46 AM CDT) Pathologist [facility] [place] COVID-19 PCR Not detected Not detected, Invalid 07/05/2020 9:25 AM CDT [facility]CRO[facility] Microbiology SPECIMEN FROM NASOPHARYNGEAL STRUCTURE / Unknown Collection / Unknown 07/04/2020 11:46 AM CDT 07/04/2020 11:46 AM CDT Narrative [facility] - 07/05/2020 9:25 AM CDT This Real Time RT-PCR assay was developed and its performance characteristics determined by [facility]. This test has been authorized [...] Jennifer Roy MD LAB - MICROBIOLOGY ORDERABLES [facility] MICROBIOLOGY [address] [place], [place] [address], [facility] [phone] * EKG 12-LEAD (07/04/2020 10:51 AM CDT) Only the most recent of3 resultswithin the time period is included. Pathologist [facility] [place] Ventricular Rate 92 BPM [facility] Atrial Rate 92 BPM [facility] P-R Interval 128 ms [facility] QRS Duration ms 76 ms [facility] Q-T Interval ms 356 ms [facility] QTC Calculation (Bezet) 440 ms [facility] Calculated P [place] 35 degrees [facility] Calculated R [place] 66 degrees [facility] Calculated T [place] 51 degrees [facility] Interpretation EKG NORMAL SINUS RHYTHM NORMAL ECG WHEN COMPARED WITH ECG OF 21-JUN-2016 20:16, NO SIGNIFICANT CHANGE WAS FOUND Confirmed by fellow Mla Macario ([id number]) on 07/08/2020 5:40:42 PM Confirmed by Ed Bagley ([id number]) on 07/16/2020 9:03:37 PM [facility] MUSE 07/04/2020 10:5 1 AM CDT 07/16/2020 9:03 PM CDT Marci Mayaterry Chaves JACQUARD LOOM FIXER-PRINT PRODUCTION COORDINATOR ECG ORDER ERLIN [facility] MUSE * US BREAST LEFT BIOPSY (06/12/2020 [...] also provided to her referring physician via [employer]. This report was electronically signed by SHANICE [...] also provided to her referring physician via [employer]. This report was electronically signed by SHANICE [...] COMPARISON: Multiple prior mammograms, most recently 2018 [facility] HISTORY: 59-year-old female with CHEK 2 [...] increased slightly in size when compared to [facility] ultrasound 08/01/2016. There is no axillary adenopathy. [...] COMPARISON: Multiple prior mammograms, most recently 2019 [facility] HISTORY: 59-year-old female with CHEK 2 [...] increased slightly in size when compared to [facility] imaging ultrasound 08/01/2016. There is no axillary adenopathy. Jennifer Roy MD MAMMO ORDERABLES * US PELVIS LIMITED (02/09/2020 10:24 AM CDT) Anatomical Region Laterality Modality Pelvis Ultrasound 02/09/2020 10:4 5 AM CDT Impressions 02/09/2020 11:36 AM CDT IMPRESSION: Unremarkable partially distended bladder. No sonographic bladder mass identified however ultrasound has limited screening value for bladder carcinoma. Dictated by Ted Pinzon MD (residential field manager). This report was approved by Ted Pinzon [...] carcinoma. Dictated by Ted Pinzon MD (residential field manager). This report was approved by Ted Pinzon M.D. on 02/09/2020 11:04 AM. I, Dr. JENIFFER MCDONALD M.D. have personally reviewed and interpretedthis examination/study. This report was electronically signed by JENIFFER MCDONALD M.D. on 02/09/2020 11:36 AM . Janeth Foreman MD US ORDERABLES * GROSS + MICRO EXAM (STL) (01/25/2020 11:07 AM [facility]) Only the most recent of6 resultswithin the time period is included. Case Report Surgical Pathology Report Case: [id number] Authorizing Provider: Janeth Titus MD Collected: 01/25/2020 11:07 AM Ordering Location: [facility] Received: 01/26/2020 08:28 AM Pathologist: Yrn Mcdermott MD Specimens: A) - Polyp Small Bowel, Duodenal polyp bx B) - Polyp Gastric, 7 gastric polyps C) - Ileocecal Valve Biopsy D) - Polyp Transverse, 1 polyp E) - Polyp Descending, 1 polyp F) - Polyp Rectal, 1 polyp 01/27/2020 2:45 PM [facility] Final Diagnosis Small intestine, duodenum, p [...] --Hyperplastic polyp (multiple fragments) 01/27/2020 2:[address] [facility] Gross Description The tissue is received in six containers of formalin all labeled Eugenia Pinzon. The first container is additionally labeled duodenal [...] entirely in F1. NIKKO/flaca 01/27/2020 2:45 PM [facility] LABORATORY Microscopic Description The duodenal mucosa in [...] epidermal or mesodermal polyp. 01/27/2020 2:[address] [facility] Disclaimer All histochemical and/or immunohistochemical results are interpreted with controls that demonstrate appropriate staining reactions before reporting results. Note on use of immunocytochemistry reagents: This test was developed and its performance characteristic determined by [facility], Department of Laboratory Medicine. It has not [...] be interpreted with caution. 01/27/2020 2:[address] [facility] Embedded Images 01/27/2020 2:[address] 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] Gastric adenoma [D13.1] Adenomatous polyp of colon, unspecified part of colon [D12.6] Miscellaneous samples (specimen) ILEOCECAL VALVE STRUCTURE / Unknown 01/25/2020 11:46 AM [facility] 01/26/2020 8:28 AM [facility] Comment:Pre-op diagnosis: 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, 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] Gastric adenoma [D13.1] Adenomatous polyp of colon, unspecified part of colon [D12.6] Miscellaneous samples (specimen) POLYP / Unknown 01/25/2020 11:57 AM [facility] 01/26/2020 8:28 AM [facility] Comment:Pre-op diagnosis: 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, 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] Gastric adenoma [D13.1] Adenomatous polyp of colon, unspecified part of colon [D12.6] Miscellaneous samples (specimen) POLYP / Unknown 01/25/2020 12:02 PM [facility] 01/26/2020 8:28 AM [facility] Comment:Pre-op diagnosis: 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, 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] Gastric adenoma [D13.1] Adenomatous polyp of colon, unspecified part of colon [D12.6] Miscellaneous samples (specimen) RECTAL POLYP / Unknown 01/25/2020 12:07 PM [facility] 01/26/2020 8:28 AM [facility] Comment:Pre-op diagnosis: 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 Procedure Code(s): --- Professional --- 85951, Esophagogastroduode noscopy, flexible, transoral; with removal of tumor(s), polyp(s), or other lesion(s) by snare technique --- Technical --- 31356, Esophagogastroduode noscopy, flexible, transoral; with removal of tumor(s), polyp(s), or other lesion(s) by snare technique Diagnosis Code(s): --- Professional --- K31.7, Polyp of stomach and duodenum --- Technical --- K31.7, Polyp of stomach and duodenum CPT copyright 2017 [employer]. All rights reserved. The codes documented in this report are preliminary and upon manager access review may be revised to meet current compliance requirements. _ Janeth Titus MD 01/25/2020 12:28:25 PM This report has been signed electronically. Number of Addenda: 0 Note Initiated On: 01/25/2020 10:29 AM [facility] 01/25/2020 10:2 9 AM [facility] Janeth Foreman MD GI PROCEDURE REESE GUARDADO [facility] * ENDOSCOPY, COLON, SCREENING (01/25/2020 10:27 AM [facility]) Report Endoscopy POC _ Patient Name: Eugenia Pinzon Procedure Date: 01/25/2020 10:27 AM Date of : 1960 Admit Type: Outpatient Age: 59 Gender: Female Ethnicity: Not or Race: White Attending MD: Janeth Titus MD _ Procedure: Colonoscopy Indications: Surveillance: Personal history of adenomatous polyps on last colonoscopy, history of CHEK2 mutation Providers: Janeth Titus MD (Doctor), Cathy Alicea, KIERA, Aster Garcia, KIERA Referring MD: Rod Buckner (Referring MD) Medicines: [...] bowel preparation was evaluated using the BBPS ([place] Bowel Preparation Scale) with scores of: Right [...] previously scheduled. Procedure Code(s): --- Professional --- 96750, Colonoscopy, flexible; with biopsy, single or multiple --- Technical --- 57189, Colonoscopy, flexible; with biopsy, single or multiple [...] colon K62.1, Rectal polyp CPT copyright 2017 [employer]. All rights reserved. The codes documented in this report are preliminary and upon manager access review may be revised to meet current compliance requirements. __ Janeth Titus MD 01/25/2020 12:31:27 PM This report has been signed electronically. Number of Addenda: 0 Note Initiated On: 01/25/2020 10:27 AM [facility] 01/25/2020 10:2 7 AM [facility] Janeth Foreman MD GI PROCEDURE REESE GUARDADO [facility] * EGD (10/05/2019 11:46 AM [facility]) Report Endoscopy POC __ _ Patient Name: [...] MD (Doctor), Giuliana Fierro, RN, Shawnee Haines, [employer]essemer Regulator Referring MD: Rod Buckner (Referring MD) Medicines: [...] previously scheduled. Procedure Code(s): --- Professional --- 00036, Esophagogastroduode noscopy, flexible, transoral; with removal of tumor(s), polyp(s), or other lesion(s) by snare technique 83687, Esophagogastroduode noscopy, flexible, transoral; with transendoscopic balloon dilation of esophagus (less than 30 mm diameter) --- Technical --- 48069, Esophagogastroduode noscopy, flexible, transoral; with removal of tumor(s), polyp(s), or other lesion(s) by snare technique 98645, Esophagogastroduode noscopy, flexible, transoral; with transendoscopic balloon dilation of esophagus (less than 30 mm diameter) Diagnosis Code(s): --- Professional --- K31.7, Polyp of stomach and duodenum --- Technical --- K31.7, Polyp of stomach and duodenum CPT copyright 2017 [employer]. All rights reserved. The codes documented in this report are preliminary and upon manager access review may be revised to meet current compliance requirements. _ Janeth Titus MD 10/05/2019 12:43:54 PM This report has been signed electronically. Number of Addenda: 0 Note Initiated On: 10/05/2019 11:46 AM [facility] 10/05/2019 11:4 6 AM [facility] Janeth Foreman MD GI PROCEDURE [facility] * EGD (08/10/2019 11:34 AM CDT) [...] (Doctor), Garry Benitez MD (Fellow), Stephanie Blanchard, [employer]mer Regulator Referring MD: Rod Buckner (Referring MD) Medicines: [...] previously scheduled. Procedure Code(s): --- Professional --- 26960, Esophagogastroduode noscopy, flexible, transoral; with removal of tumor(s), polyp(s), or other lesion(s) by snare technique 55673, 59, Esophagogastroduode noscopy, flexible, transoral; with biopsy, single or multiple --- Technical --- 34549, Esophagogastroduode noscopy, flexible, transoral; with removal of tumor(s), polyp(s), or other lesion(s) by snare technique 74545, 59, Esophagogastroduode noscopy, flexible, transoral; with biopsy, single or multiple Diagnosis Code(s): --- Professional --- K31.7, Polyp of stomach and duodenum --- Technical --- K31.7, Polyp of stomach and duodenum CPT copyright 2017 [employer]. All rights reserved. The codes documented in this report are preliminary and upon manager access review may be revised to meet current compliance requirements. Attending Participation: I was present and participated during the entire procedure, including non-young portions. _ Janeth Titus MD 08/10/2019 1:06:08 PM This report has been signed electronically. Number of Addenda: 0 Note Initiated On: 08/10/2019 11:34 AM [facility] 08/10/2019 11:3 4 AM CDT Janeth Foreman MD GI PROCEDURE REESE GUARDADO [facility] * EGD (07/13/2019 10:04 AM CDT) Report Endoscopy POC __ _ Patient Name: Eugenia Pinzon Procedure Date: 07/13/2019 10:04 AM Date of : 1960 Admit Type: Outpatient Age: 58 Gender: Female Ethnicity: Not or Race: White Attending MD: Janteh Titus MD __ _ Procedure: Upper GI endoscopy Indications: Dysphagia, Gastro-esophageal reflux disease. History of achalasia s/p pneumatic dilation November, Providers: Janeth Titus MD (Doctor), Garry Dennison MD (Fellow), Cathy Alicea RN, Deonte Galicia, [employer]essemer Regulator Referring MD: Rod Buckner (Referring MD) Medicines: [...] as scheduled. Procedure Code(s): --- Professional --- 62861, Esophagogastroduode noscopy, flexible, transoral; with biopsy, single or multiple --- Technical --- 48117, Esophagogastroduode noscopy, flexible, transoral; with biopsy, single or multiple Diagnosis Code(s): --- Professional --- Q39.9, Congenital malformation of esophagus, unspecified K31.7, Polyp of stomach and duodenum R13.10, Dysphagia, unspecified K21.9, Gastro-esophageal reflux disease without esophagitis --- Technical --- Q39.9, Congenital malformation of esophagus, unspecified K31.7, Polyp of stomach and duodenum R13.10, Dysphagia, unspecified K21.9, Gastro-esophageal reflux disease without esophagitis CPT copyright 2017 [employer]. All rights reserved. The codes documented in this report are preliminary and upon manager access review may be revised to meet current compliance requirements. Attending Participation: I was present and participated during the entire procedure from insertion to removal of the endoscope. _ Janeth Titus MD 07/13/2019 10:37:27 AM This report has been signed electronically. Number of Addenda: 0 Note Initiated On: 07/13/2019 10:04 AM [facility] 07/13/2019 10:0 4 AM CDT Janeth Foreman MD GI PROCEDURE ORDLeonel GUARDADO [facility] * ENDOSCOPY, COLON, SCREENING (07/13/2019 10:03 [...] MD (Fellow), Cathy Alicea RN, Deonte Galicia, Bessemer Regulator Referring MD: Rod Buckner (Referring MD) Medicines: [...] bowel preparation was evaluated using the BBPS ([place] Bowel Preparation Scale) with scores of: Right [...] next colonoscopy. Procedure Code(s): --- Professional --- 14979, Colonoscopy, flexible; with biopsy, single or multiple --- Technical --- 42135, Colonoscopy, flexible; with biopsy, single or multiple [...] other than malignant neoplasm CPT copyright 2017 [employer]. All rights reserved. The codes documented in this report are preliminary and upon manager access review may be revised to meet current compliance requirements. Attending Participation: I was present and participated during the entire procedure from insertion to removal of the endoscope. __ Janeth Titus MD 07/13/2019 11:10:05 AM This report has been signed electronically. Number of Addenda: 0 Note Initiated On: 07/13/2019 10:03 AM [facility] 07/13/2019 10:0 3 AM CDT Janeth Foreman MD GI PROCEDURE REESE GUARDADO [facility] Organization Address City/State/ZIP Co de Phone Number [facility] * EGD (03/23/2019 2:21 PM CDT) Report Endoscopy POC __ _ Patient Name: Eugenia Pinzon Procedure Date: 03/23/2019 2:21 PM Date of : 1960 Admit Type: Outpatient Age: 58 Gender: Female Ethnicity: Not or Race: White Attending MD: Janeth Titus MD __ _ Procedure: Upper GI endoscopy Indications: Dysphagia, For botulinum toxin injection of achalasia Providers: Janeth Titus MD (Doctor), Violeta Mckenna, Shawnee Haines, Bessemer Regulator Medicines: Monitored Anesthesia Care Complications: No immediate [...] speech therapy. Procedure Code(s): --- Professional --- 40069, Esophagogastroduode noscopy, flexible, transoral; with directed submucosal injection(s), any substance --- Technical --- 47343, Esophagogastroduode noscopy, flexible, transoral; with directed submucosal injection(s), any substance Diagnosis Code(s): --- Professional --- K31.7, Polyp of stomach and duodenum R13.10, Dysphagia, unspecified K22.0, Achalasia of cardia --- Technical --- K31.7, Polyp of stomach and duodenum R13.10, Dysphagia, unspecified K22.0, Achalasia of cardia CPT copyright 2017 [employer]. All rights reserved. The codes documented in this report are preliminary and upon manager access review may be revised to meet current compliance requirements. _ Janeth Titus MD 03/23/2019 2:50:02 PM This report has been signed electronically. Number of Addenda: 0 Note Initiated On: 03/23/2019 2:21 PM [facility] 03/23/2019 2:21 PM CDT Janeth Foreman MD GI PROCEDURE PLYMOUTHE [facility] Organization Address City/State/ZIP Co de Phone Number [facility] * MAMMOGRAM (03/09/2019) Only the most recent of9 resultswithin the time period is included. Anatomical Region Laterality Modality Other Historical Provider SCANNING ONLY * EGD (12/01/2018 9:26 AM [facility]) Report Endoscopy POC Endoscopy Department Report __ [...] and oxygen saturations were monitored continuously. The [id number] was introduced through the mouth, and advanced [...] entire procedure. Procedure Code(s): --- Professional --- 37500, Esophagogastroduode noscopy, flexible, transoral; with dilation of esophagus with balloon (30 mm diameter or larger) (includes fluoroscopic guidance, when performed) Diagnosis Code(s): --- Professional --- K31.7, Polyp of stomach and duodenum R13.10, Dysphagia, unspecified CPT copyright 2016 [employer]. All rights reserved. The codes documented in this report are preliminary and upon manager access review may be revised to meet current compliance requirements. ____ Ruth Ann Cool MD 12/01/2018 11:14:03 AM Note Initiated On: 12/01/2018 9:26 AM Number of Addenda: 0 [facility] [address] [place] [address] [facility] 12/01/2018 9:26 AM [facility] Janeth Foreman MD GI PROCEDURE REESE GUARDADO [facility] Organization Address City/State/ZIP Co de Phone Number [facility] * POTASSIUM WHOLE BLD (12/01/2018 9:09 AM [facility]) Potassium Whole Blood 3.9 3.5 - 5.5 mmol/L 12/01/2018 9:16 AM [facility] Blood WHOLE BLOOD SPECIMEN / Unknown Venipuncture / Unknown 12/01/2018 9:09 AM [facility] 12/01/2018 9:11 AM [facility] Carmen Wyman MD LAB - CHEMISTRY O RDERABLES [address] [phone] * EGD (09/10/2018 10:11 AM CDT) Report Endoscopy POC __ _ Patient Name: Eugenia Pinzon Procedure Date: 09/10/2018 10:11 AM Date of : 1960 Admit Type: Inpatient Age: 58 Gender: Female Attending MD: Ruth Ann Cool MD __ _ Procedure: Upper GI endoscopy Indications: Dysphagia Providers: Ruth Ann Cool MD (Doctor), Giselle Pritchard RN, Shawnee Haines, Bessemer Regulator, Merary Alcazar MD (Fellow) Referring MD: Martha [...] previously scheduled. Procedure Code(s): --- Professional --- 63190, Esophagogastroduode noscopy, flexible, transoral; with transendoscopic balloon dilation of esophagus (less than 30 mm diameter) --- Technical --- 57113, Esophagogastroduode noscopy, flexible, transoral; with transendoscopic balloon [...] unspecified G35, Multiple sclerosis CPT copyright 2015 [employer]. All rights reserved. The codes documented in this report are preliminary and upon manager access review may be revised to meet current compliance requirements. Attending Participation: I was present and participated during the entire procedure, including non-young portions. Ruth Ann Cool MD ____ Ruth Ann oCol MD 09/10/2018 11:21:25 AM Number of Addenda: 0 Note Initiated On: 09/10/2018 10:11 AM [facility] 09/10/2018 10:1 1 AM CDT Janeth Foreman MD GI PROCEDURE REESE GUARDADO Performing Organization Address [facility] de Phone Number [facility] * (ABNORMAL) POTASSIUM BLOOD (09/10/2018 4:21 AM CDT) Potassium 3.3(L) 3.5 - 5.1 mmol/L 09/10/2018 4:56 AM CDT [facility] Blood BLOOD SPECIMEN / Unknown Lab Venipuncture / Unknown 09/10/2018 4:21 AM CDT 09/10/2018 4:33 AM CDT Jaiden Rayo MD LAB - CHEMISTRY REESE GUARDADO Performing Organization Address [facility] de Phone Number [facility] [address] [place], [place] [phone] * MAGNESIUM BLOOD (09/09/2018 1:54 PM CDT) Only the most recent of2 resultswithin the time period is included. Pathologist [facility] Magnesium 2.2 1.6 - 2.6 mg/dL 09/09/2018 2:41 PM CDT [facility] Blood BLOOD SPECIMEN / Unknown Lab Venipuncture / Unknown 09/09/2018 1:54 PM CDT 09/09/2018 2:32 PM CDT Godfrey Macias MD LAB - CHEMISTRY ORDERABLES Performing Organization Address [facility] de Phone Number [facility] [address] [place] [address] * EGD (07/28/2018 9:44 AM CDT) Pathologist [facility] [place] Report Endoscopy POC _ Patient Name: Eugeniakeenan Pinzon Procedure Date: 07/28/2018 9:44 AM Date of : 1960 Admit Type: Outpatient Age: 57 Gender: Female Attending MD: Janeth Titus MD _ Procedure: Upper GI endoscopy Indications: Dyspepsia, Dysphagia Providers: Janeth Titus MD (Doctor), Jerri Kelly (Fellow), Giuliana Fierro RN, Valerie Butterfield, [employer]essemer Regulator Referring MD: Martha Clark MD (Referring MD) [...] colonoscopy today. Procedure Code(s): --- Professional --- 33266, Esophagogastroduod enoscopy, flexible, transoral; with transendoscopic balloon dilation of esophagus (less than 30 mm diameter) 46405, Esophagogastroduod enoscopy, flexible, transoral; with biopsy, single or multiple --- Technical --- 87809, Esophagogastroduod enoscopy, flexible, transoral; with transendoscopic balloon dilation of esophagus (less than 30 mm diameter) 11500, Esophagogastroduod enoscopy, flexible, transoral; with biopsy, single or multiple Diagnosis Code(s): --- Professional --- K31.89, Other diseases of stomach and duodenum K31.7, Polyp of stomach and duodenum R10.13, Epigastric pain R13.10, Dysphagia, unspecified --- Technical --- K31.89, Other diseases of stomach and duodenum K31.7, Polyp of stomach and duodenum R10.13, Epigastric pain R13.10, Dysphagia, unspecified CPT copyright 2015 [employer]. All rights reserved. The codes documented in this report are preliminary and upon manager access review may be revised to meet current compliance requirements. Attending Participation: I personally performed the entire procedure. __ Janeth Titus MD 07/28/2018 10:30:32 AM This report has been signed electronically. Number of Addenda: 0 Note Initiated On: 07/28/2018 9:44 AM [facility] 07/28/2018 9:44 AM CDT Janeth Foreman MD GI PROCEDURE TYLORE DEBBY [facility] * ENDOSCOPY, COLON, SCREENING (07/28/2018 9:43 [...] removed. Providers: Janeth Titus MD (Doctor), Giuliana Fierro RN, Valerie Butterfield, [employer]essemer Regulator Referring MD: Martha Clark MD (Referring MD) [...] previously scheduled. Procedure Code(s): --- Professional --- 23549, Colonoscopy, flexible; with biopsy, single or multiple --- Technical --- 29782, Colonoscopy, flexible; with biopsy, single or multiple [...] or abscess without bleeding CPT copyright 2015 [employer]. All rights reserved. The codes documented in this report are preliminary and upon manager access review may be revised to meet current compliance requirements. __ Janeth Titus MD 07/28/2018 10:58:15 AM This report has been signed electronically. Number of Addenda: 0 Note Initiated On: 07/28/2018 9:43 AM [facility] 07/28/2018 9:43 AM CDT Janeth Foreman MD GI PROCEDURE REESE CONRADVISH [facility] * ENDOSCOPY, COLON, SCREENING (12/16/2017 7:12 AM [facility]) Report Endoscopy POC _ Patient Name: Eugenia [...] MD (Doctor), Salma Shine RN, Stephanie Verdugo, Bessemer Regulator Referring MD: Robin Strong MD (Referring MD) [...] be scheduled. Procedure Code(s): --- Professional --- 91044, Colonoscopy, flexible; with removal of tumor(s), polyp(s), or other lesion(s) by snare technique 49863, 59, Colonoscopy, flexible; with biopsy, single or multiple --- Technical --- 10996, Colonoscopy, flexible; with removal of tumor(s), polyp(s), or other lesion(s) by snare technique 38647, 59, Colonoscopy, flexible; with biopsy, single or [...] or abscess without bleeding CPT copyright 2015 [employer]. All rights reserved. The codes documented in this report are preliminary and upon manager access review may be revised to meet current compliance requirements. __ Janeth Titus MD 12/16/2017 9:23:45 AM This report has been signed electronically. Number of Addenda: 0 Note Initiated On: 12/16/2017 7:12 AM [facility] 12/16/2017 7:12 AM [facility] Janeth Foreman MD GI PROCEDURE ORDLeonel GUARDADO [facility] Organization Address City/State/ZIP Co de Phone Number [facility] * EGD (12/16/2017 7:08 AM [facility]) Report Endoscopy POC __ _ Patient Name: Eugenia Pinzon Procedure Date: 12/16/2017 7:08 AM Date of : 1960 Admit Type: Outpatient Age: 57 Gender: Female Attending MD: Janeth Titus MD __ _ Procedure: Upper GI endoscopy Indications: Dysphagia Providers: Janeth Titus MD (Doctor), Salma Shine RN, Stephanie Verdugo, Bessemer Regulator Medicines: Monitored Anesthesia Care Complications: No immediate [...] for retreatment. Procedure Code(s): --- Professional --- 62180, Esophagogastroduode noscopy, flexible, transoral; with transendoscopic balloon dilation of esophagus (less than 30 mm diameter) --- Technical --- 61053, Esophagogastroduode noscopy, flexible, transoral; with transendoscopic balloon dilation of esophagus (less than 30 mm diameter) Diagnosis Code(s): --- Professional --- K31.7, Polyp of stomach and duodenum R13.10, Dysphagia, unspecified --- Technical --- K31.7, Polyp of stomach and duodenum R13.10, Dysphagia, unspecified CPT copyright 2015 [employer]. All rights reserved. The codes documented in this report are preliminary and upon manager access review may be revised to meet current compliance requirements. _ Janeth Titus MD 12/16/2017 9:27:07 AM This report has been signed electronically. Number of Addenda: 0 Note Initiated On: 12/16/2017 7:08 AM [facility] 12/16/2017 7:08 AM [facility] Janeth Foerman MD GI PROCEDURE REESE GUARDADO Performing Organization Address [facility]/ZIP Co de Phone Number [facility] * TYPE + SCREEN PANEL (02/04/2017 8:16 AM [facility]) Typem O POS [facility] Antibody Screen NEG [facility] Blood specimen (specimen) 02/04/2017 8:16 AM [facility] 02/04/2017 8:46 AM [facility] Ck Reinoso MD LAB - BLOOD BANK ORD SHARA Performing Organization Address [facility] Co de Phone Number [facility] [address] [place] [address] * (ABNORMAL) TSH (01/29/2017 11:37 AM [facility]) Only the most recent of4 resultswithin the time period is included. TSH <0.004(L) 0.350 - 4.940 uIU/mL [facility] Blood specimen (specimen) BLOOD SPECIMEN / Unknown 01/29/2017 11:37 AM [facility] 01/29/2017 12:14 PM [facility] Ck Reinoso MD LAB - CHEMISTRY REESE GUARDADO Performing Organization Address [facility] Co de Phone Number [facility] [address] [place] [address] * (ABNORMAL) T4 FREE (01/29/2017 11:37 AM [facility]) Only the most recent of3 resultswithin the time period is included. T4 Free 1.6(H) 0.7 - 1.5 ng/dL [facility] Blood specimen (specimen) BLOOD SPECIMEN / Unknown 01/29/2017 11:37 AM [facility] 01/29/2017 12:14 PM [facility] Ck Reinoso MD LAB - CHEMISTRY REESE GUARDADO [address] [phone] * EGD (01/28/2017 11:17 AM [facility]) Report Endoscopy POC __ _ Patient Name: Eugenia Pinzon Procedure Date: 01/28/2017 11:17 AM Date of : 1960 Admit Type: Outpatient Age: 56 Gender: Female Attending MD: Janeth Titus MD __ _ Procedure: Upper GI endoscopy Indications: Dysphagia Providers: Janeth Titus MD (Doctor), Cathy Alicea RN, Stephanie Blanchard, [place] Regulator Referring MD: Martha Clark MD (Referring MD) [...] previously scheduled. Procedure Code(s): --- Professional --- 90017, Esophagogastroduode noscopy, flexible, transoral; with transendoscopic balloon dilation of esophagus (less than 30 mm diameter) --- Technical --- 64727, Esophagogastroduode noscopy, flexible, transoral; with transendoscopic balloon dilation of esophagus (less than 30 mm diameter) Diagnosis Code(s): --- Professional --- K31.7, Polyp of stomach and duodenum R13.10, Dysphagia, unspecified --- Technical --- K31.7, Polyp of stomach and duodenum R13.10, Dysphagia, unspecified CPT copyright 2015 [place]. All rights reserved. The codes documented in this report are preliminary and upon manager access review may be revised to meet current compliance requirements. _ Janeth Titus MD 01/28/2017 11:46:57 AM This report has been signed electronically. Number of Addenda: 0 Note Initiated On: 01/28/2017 11:17 AM [facility] 01/28/2017 11:1 7 AM [facility] Janeth Foreman MD GI PROCEDURE ORDLeonel GUARDADO [facility] * CORTISOL FREE URINE TIMED (10/20/2016 10:03 AM [facility]) Volume (UVOL) 3300 mL [facility] Cortisol Free Urine 11.2 4.0 - 50.0 mcg/24 h [facility] Comment: Analysis performed by [employer] This test was developed and its analytical performance characteristics have been determined by [facility]. It has not been cleared or approved by FDA. This assay has been validated pursuant to the CLIA regulations and is used for clinical purposes. Creatinine Urine 1.12 0.63 - 2.50 g/24 h [facility] Comment: REPORT COMMENT: SPLIT 10/17/2016 FROM [id number] Test Performed at: [facility] [address] [place] [address] KATHLEEN DALEY MD PHD 10/20/2016 10:0 3 AM [facility] 10/20/2016 10:04 AM [facility] Martha Clark MD LAB - URINE CHEMISTR Y ORDERABLES [facility] * XR CHEST 2VW (10/13/2016 12:17 PM [facility]) Only the most recent of3 resultswithin the time period is included. Anatomical Region Laterality Modality Chest Other Impressions 10/13/2016 3:36 PM [facility] IMPRESSION: No acute pulmonary process. Report dictated by Suellen Basurto M.D. This report was approved by Suellen Basurto M.D. on 10/13/2016 2:[address] ABDIAZIZ Carranza M.D. have personally reviewed and interpreted this examination/study. This report was electronically signed by ABDIAZIZ PARKS M.D. on 10/13/2016 3:36 PM . Narrative 10/13/2016 3:36 PM [facility] EXAM: Chest, PA and lateral views HISTORY: [...] M.D. on10/13/2016 3:36 PM . Dayami Wallace JACQUARD LOOM FIXER-SUPERVISOR GRAPHITE DIAGNOSTIC IMAGIN G ORDERABLES * URINALYSIS AUTO - POINT OF CARE (AMB) [facility] (09/03/2016 10:33 AM CDT) Glucose UA neg [facility] Bilirubin UA POCT neg [facility] Ketones UA POCT neg [facility] Specific [place] UA 1.030 [facility] Blood Urine POCT neg [facility] pH UA 6.0 [facility] Protein UA +- 0.15 g/L [facility] Urobilinogen UA 3.5 [facility] Nitrite UA neg [facility] WBC UA neg [facility] Urine specimen (specimen) 09/03/2016 10:33 AM CDT Ni Thapa DO LAB - POINT OF CAR E ORDERABLES [facility] * (ABNORMAL) URINALYSIS W/MICROSCOPIC NO CULTURE (06/25/2016 8:15 AM CDT) Only the most recent of2 resultswithin the time period is included. Color UA Yellow Straw, Yellow, Colorless, Light Yellow [facility] Clarity UA Clear Clear [facility] Specific [place] UA 1.008 1.001 - 1.030 [facility] pH UA 6.5 5.0 - 8.0 [facility] Protein UA Negative <=20 mg/dL [facility] Glucose UA Negative Negative mg/dL [facility] Ketone UA Negative Negative mg/dL [facility] Bilirubin UA Negative Negative mg/dL [facility] Blood UA Negative Negative [facility] Nitrite UA Negative Negative [facility] Leukocyte Esterase Negative Negative [facility] Urobilinogen UA <2.0 <2.0 mg/dL [facility] RBC UA 1 0 - 8 /HPF [facility] WBC UA <1 0 - 2 /HPF [facility] Bacteria UA Rare Rare, Occasional, None /HPF [facility] Squamous Epithelial Cells UA 1 0 - 1 /HPF [facility] Mucus UA Moderate(A) None /LPF [facility] Urine specimen (specimen) URINE SPECIMEN OBTAINED BY CLEAN CATCH PROCEDURE / Unknown 06/25/2016 8:15 AM CDT 06/25/2016 8:21 AM CDT Eladio Nevarez MD LAB - URINALYSIS ORD ERABLES Performing Organization Address [facility]/ZIP Co de Phone Number [address] [phone] * PT-INR [facility] (06/25/2016 4:54 AM CDT) Only the most recent of3 resultswithin the time period is included. PT 12.6 12.1 - 14.8 Seconds [facility] INR 1.0 See Comment [facility] Comment: Suggested therapeutic range for low-intensity coumadin therapy for venous thromboembolism prophylaxis is an INR of 2.0-3.0. For high risk patients (Mitral Valve Prosthesis, Atrial Fibrillation, history of TIA/stroke), suggested prophylactic therapeutic range is an INR of 2.5-3.5. Blood specimen (specimen) BLOOD SPECIMEN / Unknown 06/25/2016 4:54 AM CDT 06/25/2016 5:13 AM CDT [facility] - 06/25/2016 5:29 AM CDT Is patient on Heparin, Argatroban or Dabigatran?->N Eladio Nevarez MD LAB - COAGULATION OR DERABLES Performing Organization Address City/[facility]/ZIP Co de Phone Number [address] [phone] * CULTURE URINE (06/23/2016 2:38 AM CDT) Culture Urine Less than 10,000 CFU/ML of Normal Urogenital/ Skin Silva [facility] Comment: Urine specimen (specimen) URINE / Unknown 06/23/2016 2:38 AM CDT 06/23/2016 2:38 AM CDT Narrative [facility] - 06/25/2016 2:29 PM CDT Specimen Type->Urine Eladio Nevarez MD LAB - MICROBIOLOGY O RDERABLES [address] [phone] * ECHO STRESS COLOR FLOW AND DOPPLER (06/23/2016 12:00 AM CDT) Anatomical Region Laterality Modality Other 06/23/2016 Eladio Nevarez MD ECHOCARDIOGRAPHY RAD IANT * (ABNORMAL) URINALYSIS REFLEX TO MICROSCOPIC NO CULTURE (06/22/2016 5:20 PM CDT) Color UA Yellow Straw, Yellow, Colorless, Light Yellow [facility] Clarity UA Clear Clear [facility] Specific [place] UA 1.022 1.001 - 1.030 [facility] pH UA 6.5 5.0 - 8.0 [facility] Protein UA 20 <=20 mg/dL [facility] Glucose UA Negative Negative mg/dL [facility] Ketone UA 15(A) Negative mg/dL [facility] Bilirubin UA Negative Negative mg/dL [facility] Blood UA Negative Negative [facility] Nitrite UA Negative Negative [facility] Leukocyte Esterase Negative Negative [facility] Urobilinogen UA <2.0 <2.0 mg/dL [facility] RBC UA 1 0 - 8 /HPF [facility] WBC UA <1 0 - 2 /HPF [facility] Squamous Epithelial Cells UA <1 0 - 1 /HPF [facility] Mucus UA Moderate(A) None /LPF [facility] Urine specimen (specimen) URINE SPECIMEN OBTAINED BY CLEAN CATCH PROCEDURE / Unknown 06/22/2016 5:20 PM CDT 06/22/2016 5:43 PM CDT Eladio Nevarez MD LAB - URINALYSIS ORD ERABLES [address] [phone] * PTT [facility] (06/22/2016 1:56 AM CDT) APTT 32.0 23.0 - 38.4 Seconds [facility] Comment:Suggested therapeuti c range for full dose I.V. heparin therapy for venous thromboembolism is 66.0-91.0 seconds. Blood specimen (specimen) BLOOD SPECIMEN / Unknown 06/22/2016 1:56 AM CDT 06/22/2016 1:56 AM CDT Narrative [facility] - 06/22/2016 2:34 AM CDT Is patient on Heparin, Argatroban or Dabigatran?->N Eladio Nevarez MD LAB - COAGULATION OR DERABLES [address] [phone] * TROPONIN I (06/22/2016 1:56 AM CDT) Only the most recent of3 resultswithin the time period is included. Pathologist [facility] Troponin I <0.010 <0.032 ng/mL [facility] Blood specimen (specimen) BLOOD SPECIMEN / Unknown 06/22/2016 1:56 AM CDT 06/22/2016 1:56 AM CDT Eladio Nevarez MD LAB - CHEMISTRY ORDE RABLES [address] [phone] * HEMOGLOBIN A1C (06/22/2016 1:56 AM CDT) Hemoglobin A1c 5.4 4.4 - 6.3 % [facility] Estimated Average Glucose 108 mg/dL [facility] Comment: HbA1c Interpretation: Treatment target values recommended by ADA and other clinical organizations should be used to evaluate metabolic control in patients. Treatment Target Values: Normal : < 5.7% Pre-diabetes: 5.7-6.4% Diabetes: Equal to or greater than 6.5% Reference: [place] [employer] Standards of Care in Diabetes -2014 In patients 70 years and older consider HbA1c target range of 7.0-7.5% Reference: Diabetes Mellitus in Older People: Position Statement on behalf of the International Association of Gerontology and Geriatrics (IAGG), the Diabetes Working Republican for Older People (EDWPOP), and the International Task Force of Experts in Diabetes. Osiel New et al. J [place] [employer]. 2012 Test results diagnostic [...] - CHEMISTRY REESE GUARDADO Performing Organization Address [facility] Co de Phone Number [address] [phone] * CK + CKMB PANEL (06/22/2016 1:56 AM CDT) Only the most recent of3 resultswithin the time period is included. CK Total 52 30 - 200 Units/L [facility] CK-MB 1.4 0.0 - 6.6 ng/mL [facility] Blood specimen (specimen) BLOOD SPECIMEN / Unknown 06/22/2016 1:56 AM CDT 06/22/2016 1:56 AM CDT Eladio Nevarez MD LAB - CHEMISTRY REESE GUARDADO Performing Organization Address [facility]/[place] [address], [facility] [phone] * (ABNORMAL) LIPID PROFILE (06/22/2016 1:56 AM CDT) Cholesterol Total 194 <200 mg/dL [facility] HDL 68 >40 mg/dL [facility] Comment: ATP III Classification of HDL Cholesterol: <40 mg/dL: Considered a major risk factor. >60 mg/dL: Considered a negative risk factor. LDL Calculated 106(H) <100 mg/dL [facility] Comment: ATP III Classification of LDL Cholesterol: <100 mg/dL: Optimal 100 - 129 mg/dL: Near Optimal/Above Optimal 130 - 159 mg/dL: Borderline High 160 - 189 mg/dL: High >190 mg/dL: Very High Triglycerides 99 <150 mg/dL [facility] Comment: ATP III Classification of Triglycerides: <150 mg/dL: Normal 150 - 199 mg/dL: Borderline High 200 - 400 mg/dL: High >500 mg/dL: Very High Blood specimen (specimen) BLOOD SPECIMEN / Unknown 06/22/2016 1:56 AM CDT 06/22/2016 1:56 AM CDT Eladio Nevarez MD LAB - CHEMISTRY [facility] Organization Address City/State/ZIP Co de Phone Number [address] [phone] * ECHO STRESS TEST W DOBUTAMINE (06/22/2016 12:00 AM CDT) Anatomical Region Laterality Modality Other 06/22/2016 Eladio Nevarez MD ECHOCARDIOGRAPHY RAD IANT * (ABNORMAL) HEPATIC FUNCTION PANEL (06/21/2016 8:10 PM CDT) Protein Total 7.7 6.0 - 8.3 g/dL [facility] Albumin 3.7 3.4 - 5.0 g/dL [facility] Bilirubin Total 0.6 0.2 - 1.2 mg/dL [facility] Bilirubin Conjugated 0.2 0.0 - 0.5 mg/dL [facility] Bilirubin Unconjugated 0.4 Unconjugated Bilirubin is a calculated value: Reference ranges have not been established. mg/dL [facility] Alkaline Phosphatase 162(H) 40 - 150 Units/L [facility] ALT 54 0 - 55 Units/L [facility] AST 26 5 - 34 Units/L [facility] Albumin/Globulin Ratio 0.9(L) 1.1 - 2.3 [facility] Blood specimen (specimen) BLOOD SPECIMEN / Unknown 06/21/2016 8:10 PM CDT 06/21/2016 8:18 PM CDT Zaki Ibrahim MD LAB - CHEMISTRY TYLORLeonel GUARDADO Performing Organization Address City/[facility]/ZIP Co de Phone Number [facility] [address] [phone] * COMPLETE PFT W/WO BRONCHODILATOR (11/07/2015 12:33 PM [facility]) 11/07/2015 12:3 3 PM [facility] Narrative [facility] - 11/07/2015 12:33 PM [facility] Print Requisition Now?->No Does this order require further action?->No Mickey Felix MD RESPIRATORY THERAPY ORDERABLES Performing Organization Address [facility] Co de Phone Number [facility] [address] * COMPLETE PFT W/WO BRONCHODILATOR (11/07/2015 12:33 PM [facility]) Impressions [facility] - 11/07/2015 12:[address] [facility] DEPARTMENT OF PULMONARY, CRITICAL CARE, AND SLEEP [...] agreed with the interpretation. Pedro Ann M.D., [facility] Narrative Procedure Note Provider, MD Kavitha - 05/07/[address] [facility] DEPARTMENT OF PULMONARY, CRITICAL CARE, AND SLEEP MEDICINE PULMONARY FUNCTION TESTS Eugenia Joyner [place] 11/11/2015 INTERPRETATION Please see technologist's comments mentioned [...] agreed with the interpretation. Pedro Ann M.D., [facility] Mickey Felix MD RESPIRATORY THERAPY ORDERABLES [facility] * (ABNORMAL) CULTURE FUNGUS OTHER+FUNGUS SMEAR (10/11/2015 11:09 AM [facility]) Only the most recent of2 resultswithin the time period is included. Culture Fungus-Other NERY ALBICANS(A) [facility] Comment:Heavy Growth Nery Albicans Fungus Smear [facility] Comment:no smear Throat swab (specimen) ENTIRE THROAT (SURFACE REGION OF NECK) / Unknown 10/11/2015 11:09 AM [facility] 10/12/2015 11:09 AM [facility] Narrative [facility] - 11/13/2015 9:17 AM [facility] Specimen Type->Throat Organism Antibiotic Method Susceptibility Nery albicans Fluconazole SUSCEPTIBILITY <=1: Sensitive Nery albicans Caspofungin SUSCEPTIBILITY <=0.25: Sensitive Nery albicans Voriconazole SUSCEPTIBILITY <=0.12: Sensitive Constance Flores MD LAB - MICROBI OLOGY ORDERABLES [address] [phone] * CD4/CD8 + RATIO PANEL BLOOD (09/20/2015) CD4 % 52 30 - 61 % [facility] CD4 Absolute 1334 490 - 1740 cells/uL [facility] CD8 % 18 12 - 42 % [facility] CD8 ABS 457 180 - 1170 cells/uL [facility] CD4/CD8 Ratio 2.92 0.86 - 5.00 [facility]) Lymphocyte Absolute Manual 2,556 850 - 3,900 cells/uL [facility] Comment: Test Performed at: [facility] [address] NANCY ISABEL MD 09/20/2015 09/20/2015 9:1 8 PM CDT Constance Flores MD LAB - HEMATOL OGY ORDERABLES [facility] * CT FACIAL BONES WO CONTRAST (11/21/2014 4:19 PM [facility]) Anatomical Region Laterality Modality Head Other Impressions 11/21/2014 5:26 PM [facility] IMPRESSION: 1. No significant paranasal sinus disease or complications identified. This report was electronically signed by VOLODYMYR GUPTA M.D. on 11/21/2014 5:26 PM . Narrative 11/21/2014 5:26 PM [facility] EXAMINATION: Computed tomography (CT) of the maxillofacial [...] soft tissue abnormality is identified. Procedure Note Vooldymyr Gupta MD - 02/27/2018 EXAMINATION: Computed tomography [...] * GIARDIA SCREEN DFA (11/16/2014 10:38 AM [facility]) Giardia Antigen Screen No Giardia Lamblia Cysts seen. Negative [facility] Stool specimen (specimen) STOOL SPECIMEN / Unknown 11/16/2014 10:38 AM [facility] 11/16/2014 2:42 PM [facility] Narrative [facility] - 11/20/2014 3:56 PM SP[facility] HYDRAULIC NorwoodSpecimen#[id number] Ihsan Loc//Bed: SURG CENTR// Historical Provider LAB - MICROBIOLOG Y ORDERABLES [address] [phone] * CULTURE STOOL+ E COLI SHIGA-LIKE TOXIN (11/16/2014 10:38 AM [facility]) Culture Feces No Salmonella, Shigella, Yersinia, Campylobacter or Escherichia Coli 0157:H7 isolated. Negative for Shiga Toxin by Immunoassay. [facility] Stool specimen (specimen) STOOL SPECIMEN / Unknown 11/16/2014 10:38 AM [facility] 11/16/2014 2:42 PM [facility] HYDRA[facility]IC Narrative [facility] - 11/20/2014 1:24 PM SPINNER HYDRAULIC AndersonSpecimen#[id number] Ihsan Loc/Rm/Bed: SURG CENTR// Historical Provider LAB - MICROBIOLOG Y ORDERABLES Performing Organization Address [facility] Co de Phone Number [address] [phone] * CLOSTRIDIUM DIFFICILE [facility] AG + TOXIN A+B (11/16/2014 10:38 AM [facility]) C difficile Antigen Negative Negative [facility] C difficile Toxin Negative Negative [facility] Stool specimen (specimen) STOOL SPECIMEN / Unknown 11/16/2014 10:38 AM [facility] 11/16/2014 2:42 PM [facility] Narrative [facility] - 11/16/2014 4:32 PM SP[facility] HYDRAULIC AndersonSpecimen#[id number] Ihsan Loc/Rm/Bed: SURG CENTR// Historical Provider LAB - MICROBIOLOG Y ORDERABLES [address] [phone] * CRYPTOSPORIDIUM ANTIGEN (11/16/2014 10:38 AM [facility]) Cryptosporidium Antigen Screen No Cryptosporidium Oocysts seen. Negative [facility] Stool specimen (specimen) STOOL SPECIMEN / Unknown 11/16/2014 10:38 AM [facility] 11/16/2014 2:42 PM [facility]IC Narrative [facility] - 11/20/2014 3:55 PM SP[facility]NER HYDRAULIC Bharathimen#[id number] Ihsan Loc/Rm/Bed: SURG CENTR// Historical Provider LAB - MICROBIOLOG Y ORDERABLES [facility] [address] [place] [address], [facility] [phone] * COMPLETE PFT W/WO BRONCHODILATOR (11/03/2014 9:47 AM [facility]) Impressions [facility] - 11/03/2014 9:[address] [facility] DEPARTMENT OF PULMONARY, CRITICAL CARE, AND SLEEP MEDICINE PULMONARY FUNCTION TESTS Eugenia Pinzon 11/03/2014 INTERPRETATION Please see technologist's comments mentioned [...] ARTERIAL BLOOD GAS ANALYSIS: ABG drawn on revealed normal oxygenation and acid-base balance. IMPRESSION: [...] the above interpretation. Narrative Procedure Note Provider, Kavitha, - 05/07/[address] [facility] DEPARTMENT OF PULMONARY, CRITICAL CARE, AND SLEEP MEDICINE PULMONARY FUNCTION TESTS Eugenia Pinzon 11/03/2014 INTERPRETATION Please see technologist's comments mentioned [...] needed to the above interpretation. Ml Davison APNP-SUPERVISOR GRAPHITE RESPIRAT ORY THERAPY ORDERABLES [facility] * (ABNORMAL) BLOOD GASES ART - PFT (11/03/2014 8:34 AM [facility]) pH Arterial 7.44 7.35 - 7.45 [facility] pCO2 Arterial 40 35 - 45 mmHg [facility] pO2 Arterial 92 77 - 101 mmHg [facility] HCO3 Arterial 26.7(H) 22.0 - 26.0 mmol/L [facility] TCO2 Arterial 27.9 25.0 - 29.0 mmol/L [facility] Base Excess Arterial 2.9(H) -2.0 - 2.0 mmol/L [facility] Hemoglobin Arterial 14.8 12.0 - 15.5 g/dL [facility] Oxyhemoglobin Arterial 98.1 95.0 - 100.0 % [facility] Carboxyhemoglobin 1.0 0.0 - 3.0 % [facility] Methemoglobin 0.3 0.0 - 2.0 % [facility] FI O2 Arterial 20.9 % [facility] Blood specimen (specimen) ARTERY SPECIMEN / Unknown 11/03/2014 8:34 AM [facility] 11/03/2014 9:12 AM [facility]IC Narrative [facility] - 11/03/2014 9:14 AM SP[facility]NER HYDRAULIC Room air (21%)->Yes FiO2->20.9 Liters/minute->0 Mickey Felix MD LAB - BLOOD GASES O RDERABLES [facility] [address] [place] [address] * ECHO W DOPPLER AND COLOR FLOW (11/03/2014 12:00 AM [facility]DRA[facility]IC) Anatomical Region Laterality Modality Other 11/03/2014 Ml A Dettenmeier APNP-SUPERVISOR GRAPHITE ECHOCARD IOGRAPHY RADIANT * METHYLMALONIC ACID BLOOD (10/25/2014 10:20 AM [facility]) Methylmalonic Acid 149 87 - 318 nmol/L [facility] Comment: Test Performed at: [facility] [facility] [address] [place] [address] KATHLEEN DALEY MD PHD Blood specimen (specimen) BLOOD SPECIMEN / Unknown 10/25/2014 10:20 AM [facility] 10/25/2014 10:20 AM [facility]DRA[facility] Ml A Dettenmeier APNP-SUPERVISOR GRAPHITE LAB - CH EMISTRY ORDERABLES Performing Organization Address [facility] Co de Phone Number [facility] * (ABNORMAL) ZINC BLOOD (10/25/2014 10:20 AM SP[facility]NER HYDRAULIC) Zinc 195(H) 60 - 130 mcg/dL [facility] Comment: Test Performed at: [facility] [address] [place] [address] DEZ FONSECA MD,AP Blood specimen (specimen) BLOOD SPECIMEN / Unknown 10/25/2014 10:20 AM [facility] 10/25/2014 10:20 AM [facility] HY[facility]IC Ml A Dettenmeier APNP-SUPERVISOR GRAPHITE LAB - CH EMISTRY ORDERABLES [facility] * IRON + TIBC PANEL (10/25/2014 10:20 AM [facility]) Iron 64 45 - 160 mcg/dL [facility]) TIBC 355 250 - 450 mcg/dL [facility]) Iron Saturation 18 11 - 50 % (calc) [facility] Comment: Test Performed at: [employer] [facility] [place] [address] GRADY CONTRERAS DO,MPH Serum 10/25/2014 10:2 0 AM [facility] 10/25/2014 10:20 AM [facility]NER HYDRAULIC Ml A OliviaLake[facility] Beach[facility] Medical CenterInternational Barrier TechnologyLAWRENCE F. [facility] LAB - CH EMISTRY ORDERABLES Performing Organization Address [facility] Co de Phone Number [facility] * (ABNORMAL) VITAMIN B12 FOLATE PANEL (10/25/2014 10:20 AM [facility]) Vitamin B12 >2,000(H) 200 - 1,100 pg/mL [facility]) Folate 21.0 ng/mL [facility] Comment: Reference Range Low: <3.4 Borderline: 3.4-5.4 Normal: >5.4 Test Performed at: [employer] [facility] [place] [address] GRADY CONTRERAS DO,MPH 10/25/2014 10:2 0 AM [facility] 10/25/2014 10:20 AM [facility]IC Ml A [facility] HospitalInternational Barrier TechnologyLAWRENCE [facility] LAB - CH EMISTRY ORDERABLES Performing Organization Address City/[facility]/ZIP Co de Phone Number [facility] * FERRITIN (10/25/2014 10:20 AM SP[facility] HYDRAUL[facility]) Ferritin 147 10 - 232 ng/mL [facility] Comment: Test Performed at: [employer] [facility] [place] [address] GRADY CONTRERAS DO,MPH Blood specimen (specimen) BLOOD SPECIMEN / Unknown 10/25/2014 10:20 AM [facility] 10/25/2014 10:20 AM SPINNER HYDRAULIC Ml Shaq Josédcxena [facility] - [facility] EMISTRY ORDERABLES Performing Organization Address City/[facility]/ZIP Co de Phone Number [facility] * VITAMIN D 25-HYDROXY D2+D3 BY TANDEM MASS (10/25/2014 10:14 AM [facility] HYDRA[facility]) Vitamin D, 25 Hydroxy Total 61 30 - 100 ng/mL [facility] Comment: 25-OHD3 indicates both endogenous production [...] Hydroxy D3 23 See Below ng/mL [facility] Comment:Reference Range: Not established Vitamin D, 25 Hydroxy D2 38 See Below ng/mL [facility] Comment: Reference Range: Not established Test Performed at: [facility] [address] [place] [address] DEZ FONSECA MD,AP Blood specimen (specimen) BLOOD SPECIMEN / Unknown 10/25/2014 10:14 AM SPINNER HYDRAULIC 10/25/2014 10:15 AM SPINNER HYDRAULIC Ml [facility] - [facility] EMISTRY ORDERABLES Performing Organization Address City/[facility] Co de Phone Number [facility] * VITAMIN K1 (10/25/2014 10:14 AM SPINNER HYDRAULIC) Vitamin K 117 80 - 1160 pg/mL [facility] Comment: Test Performed at: [facility] [address] [place] [address] NATHANIEL GRANADOS MD Blood specimen (specimen) BLOOD SPECIMEN / Unknown 10/25/2014 10:14 AM SPINNER HYDRAULIC 10/25/2014 10:15 AM SPINNER HYDRAULIC Ml A [facility]PER[facility] LAB - CH EMISTRY ORDERABLES Performing Organization Address [facility] de Phone Number [facility] * VITAMIN A (10/25/2014 10:14 AM SPINNER HYDRAULIC) Pathologist [facility] [place] Vitamin A 73 38 - 98 mcg/dL [facility] Comment: Test Performed at: [employer] [facility]/[employer] [address] NATHANIEL GRANADOS MD Blood specimen (specimen) BLOOD SPECIMEN / Unknown 10/25/2014 10:14 AM SPINNER HYDRAULIC 10/25/2014 10:15 AM SPINNER HYDRAULIC Ml A Josédcxena [facility] LAB - CH EMISTRY ORDERABLES Performing Organization Address [facility] de Phone Number [facility] * VITAMIN E (10/25/2014 10:14 AM SPINNER HYDRAULIC) [facility] Alpha-Tocopherol 16.1 5.7 - 19.9 mg/L [facility] Comment: Levels of alpha-tocopherol <5 mg/L are consistent with Vitamin E deficiency in adults. Beta-Gamma Tocopherol <0.2 <=4.3 mg/L [facility] Comment: Test Performed at: [employer] [facility]/[employer] [address] NATHANIEL GRANADOS MD Blood specimen (specimen) BLOOD SPECIMEN / Unknown 10/25/2014 10:14 AM SPINNER HYDRAULIC 10/25/2014 10:15 AM SPINNER HYDRAULIC Ml [facility] - CH EMISTRY ORDERABLES Performing Organization Address City/[facility]/ZIP Co de Phone Number [facility] * CBC W/O DIFFERENTIAL (10/25/2014 10:10 AM SPINNER HYDRAULIC) Pathologist [facility] [place] WBC 7.1 3.8 - 10.8 Thousand/u L [facility] RBC 4.96 3.80 - 5.10 Million/uL [facility] Hemoglobin 14.8 11.7 - 15.5 g/dL [facility] Hematocrit 44.0 35.0 - 45.0 % [facility] MCV 88.8 80.0 - 100.0 fL [facility] MCH 29.8 27.0 - 33.0 pg [facility] MCHC 33.6 32.0 - 36.0 g/dL [facility] RDW-CV 13.8 11.0 - 15.0 % [facility] Platelet 280 140 - 400 Thousand/u L [facility] Comment: Test Performed at: [facility] [address] [place] [address] GRADY CONTRERAS DO,MPH Blood specimen (specimen) BLOOD SPECIMEN / Unknown 10/25/2014 10:10 AM SPINNER HYDRAULIC 10/25/2014 10:11 AM SPINNER HYDRAULIC Ml A Josémeier APNP-SUPERVISOR [facility] LAB - HE MATOLOGY ORDERABLES [facility] * LAB HISTORICAL RESULTS-ONBASE (01/15/2010) 01/15/2010 Historical Provider LAB - CHEMISTRY O RDERABLES [facility] Care Teams Exercise Science Instructor Relationship Specialty Start Date End Date Rod Buckner PA-C [address] [place] [address] PCP - General 02/18/19 Zuly Miller MD [address] [place] [address] Hematology and Oncology 02/17/24
--- OUTSIDE RECORDS SUMMARY | 2025-02-01 17:50 | XMS_ITS | Encounter Summary ---
Author Organization [facility] Address [address] [place] [address] Care Team Providers Care Pen Ruler Operator Name Role Phone Rod Buckner PA-C Primary Care Provide r Encounter Details Date Type Department Care Team (Late st Contact Info) Description 05/22/2007 Outpatient Historical [facility] DEPT Armida Mendez MD [address] [facility] [address] [place] [id number] Multiple Sclerosis (CMS/HCC) (Primary Dx) Social History Tobacco Use Types Packs/Day Years Used Date Smoking Tobacco: Never Assessed Comments Unknown Sex and Gender Information Value Date Recorded Sex Assigned at Not on file Legal Sex Female 5:09 AM 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
--- OUTSIDE RECORDS SUMMARY | 2025-02-01 17:50 | XMS_ITS | Encounter Summary ---
Author Organization [facility] Address [address] [place] [address] Care Team Providers Care Heart Nurse Name Role Phone Rod Buckner PA-C Primary [...] on file Legal Sex Female 5:09 AM CUFF FOLDER Gender Identity Not on file Sexual Orientation Not on file documented as of this encounter Plan of Treatment Not on file documented as of this encounter Visit Diagnoses Diagnosis Other dyspnea and respiratory abnormality- Primary documented in this encounter Care Teams Heart Nurse Relationship Specialty Start Date End Date Rod Buckner PA-C PCP - General Physician English Professor 10/05/20 documented as of this encounter
--- OUTSIDE RECORDS SUMMARY | 2025-02-01 17:50 | XMS_ITS | Encounter Summary ---
Author Organization [facility] Address [address] [facility] [place] [address] Care Team Providers Care R D Engineer Name Role Phone Rod Buckner PA-C Primary Care Provide r Zuly Miller MD Unavailable [phone] Encounter Details Date Type Department Care Team (Late st Contact Info) Description 05/22/2022 Patient Outreach [facility] ENDOSCOPY [address] [place] [id number] Shanice Hernandez, RN Social History Tobacco Use [...] Description 02/08/2025 10:30 AM CDT Office Visit [facility] - GI [address] [facility] [place] [address] Isai Leon MD [address] [place] [address] 08/21/2025 11:30 AM CDT Office Visit [facility] - General Surgery [address] [place] [address] Bebe Faulkner MD [address] [facility] [address] [place] [address] documented as of this encounter Goals Goal Patient Goal Type Associated Problems Recent Progress Patient-Stated? Author Safety General On track( 024 2:13 PM WASTEWATER ENGINEER) Ml Serra, RN Note: Expected end date: Ongoing Interventions: Your nurse will assess your risk for falls/injury each visit Use appropriate and safe transfer methods Medication Management General On track( 024 2:13 PM WASTEWATER ENGINEER) Ml Serra, RN Note: Expected end date: Ongoing Interventions: Take all medications as prescribed Let your doctor know right away about any changes in your medications documented as of this encounter Visit Diagnoses Not on filedocumented in this encounter Care Teams R D Engineer Relationship Specialty Start Date End Date Rod Buckner PA-C [address] [facility] [address] [place] [address] PCP - General 02/18/19 Zuly Miller MD [address] [address] Hematology and Oncology 02/17/24 documented as of this encounter
--- OUTSIDE RECORDS SUMMARY | 2025-02-01 17:50 | XMS_ITS | Clinical Summary ---
Author Organization [address] Address [address] [place] [address] Care Team Providers Care Energy Sales Broker Name Role Phone Rod Buckner Primary Care Provider Gail Wyatt MD Unavailable [phone] Allergies Active Allergy Reactions Criticality Noted Date [...] Camphor-Methyl Salicylate-Soap Nausea And Vomiting Low 02/04/2017 [place] Oil Nausea And Vomiting Medium 01/28/2017 Cefuroxime [...] Neomycin Unknown Medium 06/12/2015 Other reaction(s): Unknown Gabogkzo-Ibvpmrrnp-Btpymd ine Rash Medium 01/28/2017 Nitrate Analogues Unknown [...] bronchitis, unspecified chronic bronchit is type 04/01/2024 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 Pnizon about goal of treatment being normalize TSH [...] Tamsulosin Assessment & Plan (12/08/2019 10:21 AM BEEF PLUCK TRIMMER): Desipramine Tamsulosin Assessment & Plan (05/24/2019 7:33 [...] discussed. Assessment & Plan (12/08/2019 10:20 AM BEEF PLUCK TRIMMER): Continue Emgality monthly Continue Botox Should not [...] depression Assessment & Plan (12/08/2019 10:36 AM BEEF PLUCK TRIMMER): Continue following with Dr. Oviedo Asthma 08/24/2015 [...] hypercholesterolemia 09/11/2011 Atherosclerotic heart diseas e of [place] coronary artery without angina pectoris 09/10/2011 Edema 09/10/2011 Essential (primary) hypertension 09/10/2011 Heart failure, unspecified ([facility]) 09/10/2011 Multiple sclerosis ([facility]) 12/07/2008 Assessment & Plan (09/21/2024 10:28 AM [...] did go to [facility] in the past, but left when she [...] that she completed MRI imaging at an [facility] in September 2022 but [...] acetate seems reasonable. She received her 1st Lockbox COVID-19 vaccine on January 29, 2021. Baclofen [...] discussed. Assessment & Plan (12/08/2019 10:31 AM BEEF PLUCK TRIMMER): Discussed the option of oral medication due to lipoatrophy. I told her she should not inject in those areas and that the medication maybe less effective is she is injecting in non-approved sites. Patient declines talk of oral medication options. Continue Copaxone 20mg daily per patient preference Continue exercise Discussed weight loss and nutrition. Will also provide her with [facility] phone number Follow up with Dr. Brennan [...] T1bN0(i-)M0, stage IA. ER pos 100% (strong), MA pos 100% (strong), Her-2 neg (0 on [...] was discussed. Vitamin D deficiency 03/01/2019 Overview (07/30/2022): Last Assessment & Plan: Check [...] angina 09/11/2011 024 SOB (shortness of breath) 03 /06/2024 Encounters Date Type Department Care Team Description 12/13/2024 Documentation [facility] Oncology [address] [facility] [address] [place] [address] Vero Stokes RN 12/08/2024 11:50 AM BEEF PLUCK TRIMMER - 12/08/2024 11:59 PM BEEF PLUCK TRIMMER Hospital Encounter [facility] - Breast Imaging [address] [facility] [address] [place] [address] History of bilateral mastectomy Discharge Disposition: Discharge to home or self care 12/08/2024 10:45 AM BEEF PLUCK TRIMMER Office Visit [facility] Surgery [address] [facility] [address] [place] [address] Gail Ramos MD PhD Mass of right chest wall (Primary Dx); Encounter for follow-up surveillance of breast cancer; History of bilateral mastectomy; CHEK2-related breast cancer (HCC); Hx of lymph node excision; History of left breast cancer 12/08/2024 Telephone [facility] [address] [facility] [address] [place] [address] Antony Brennan MD 12/05/2024 Telephone [facility] Surgery [facility] [facility] [address] [place] [address] Elisa Villarreal MD 11/11/2024 Telephone [facility] [address] [facility] [address] [place] [address] Shannon Lynn RPh 11/08/2024 11:30 AM BEEF PLUCK TRIMMER Office Visit [facility] Pulmonary [address] [facility] [address] [place] [address] Milan Valencia MD Asthma in adult, mild persistent, uncomplicated (Primary Dx); Seasonal allergies; SOB (shortness of breath) 11/08/2024 10:26 AM BEEF PLUCK TRIMMER - 11/08/2024 11:59 PM BEEF PLUCK TRIMMER Hospital Encounter [facility] PFT Lab [facility] Floor [address], [address] [place] [address] Asthma in adult, mild persistent, uncomplicated Discharge Disposition: Discharge to home or self care from Last 3 Months Immunizations Immunization Administration Dates Next Due H1N1 [...] disease GERD Adiposity Obesity Congestive heart failure (HCC) C ongestive heart failure Anxiety disorder Anxiety Multiple sclerosis (HCC) 05/31/2013 MS; Com ments: [facility] 08/13/2015 - Rhinitis Rhinitis; Commen ts: [facility] 08/13/2015 - Hypothyroidism Hypothyroidism; Comments: [facility] 08/13/2015 - Depression Depression Hx Other Medical 04/11/2015 EGD; Comments: [facility] 10/23/2015 - Asthma Asthma Vertigo Vertigo; Comment s: [facility] 10/15/2016 - Hx Other Medical Migraines; Comm ents: [facility] 10/15/2016 - Hypertension Heart disease Headache Sleep [...] Osteopenia of multiple sites 10/14/2023 Microvascular angina 09/11/2011 Edema 09/11/2011 Acute recurrent maxillary sinusitis 09/15/2017 Urinary retention 08/18/2018 Posttraumatic stress disorder 08/24/2015 PT [place] (post-traumatic stress disorder) Anxiety and depression Last Assessment & Plan: Continue following with Dr. Oviedo PTSD (pos Tobacco dependence syndrome 09/11/2011 Family History Medical History Relation Name Comments [...] on file Legal Sex Female 7:38 PM BEEF PLUCK TRIMMER Gender Identity Female 06/29/2020 2:02 PM CDT Sexual Orientation Not on file Obstetrics History Last Filed Vital Signs Vital Sign Reading Time Taken Comments Blood Pressure 144/78 12/08/2024 11:14 AM BEEF PLUCK TRIMMER Pulse 90 12/08/2024 11:14 AM BEEF PLUCK TRIMMER Temperature 36.6 C (97.9 F) 12/08/2024 11:14 AM BEEF PLUCK TRIMMER Respiratory Rate 20 12/08/2024 11:1 4 AM BEEF PLUCK TRIMMER Oxygen Saturation 96% 12/08/2024 11: 14 AM BEEF PLUCK TRIMMER Inhaled Oxygen Concentration - - Weight 108.2 kg (238 lb 9.6 oz) 025 11:14 AM BEEF PLUCK TRIMMER Height 160 cm (5' 3 ) 12/08/2024 11:14 AM BEEF PLUCK TRIMMER Body Mass Index 42.27 12/08/2024 11:14 AM BEEF PLUCK TRIMMER Plan of Treatment Health Maintenance Due Date [...] Read Routine (OP Routine) 12/08/2024 12:36 PM BEEF PLUCK TRIMMER History of bilateral mastectomy PULMONARY FUNCTION TEST (PFT) Routine 11/08/2024 11:14 AM BEEF PLUCK TRIMMER Asthma in adult, mild persistent, uncomplicated DEXA AXIAL SKELETON BONE DENSITY 1 OR MORE SITES Schedule Routine, Read Routine (OP Routine) 05/25/2023 10:54 AM CDT Malignant neoplasm of upper-outer quadrant of left breast in female, estrogen receptor positive (HCC) 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 OVERALL FINAL ASSESSMENT: BI-RADS Category 1: Negative. RECOMMENDATION: Continued clinical follow-up is recommended. Appropriate clinical management is recommended. Negative imaging does not negate the need of a biopsy if high clinical suspicion exists, and a biopsy under palpation may be performed. Electronically signed by: Rivka Rizo M.D. Narrative 12/08/2024 12:37 PM BEEF PLUCK TRIMMER EXAMINATION: US CHEST BREAST RELATED HISTORY: 64-year-old female status post mastectomy with the right chest wall lump. COMPARISON: None TECHNIQUE: Directed ultrasound evaluation of the RIGHT breast was performed by a automotive collision estimator. ULTRASOUND FINDINGS: Area of palpable concern, in the right chest wall, there is no suspicious cystic or solid mass. Procedure Note Rivka Rizo MD - 12/08/2024 EXAMINATION: US CHEST BREAST RELATED HISTORY: 64-year-old female status post mastectomy with the right chest wall lump. COMPARISON: None TECHNIQUE: Directed ultrasound evaluation of the RIGHT breast was performed by a automotive collision estimator. ULTRASOUND FINDINGS: Area of palpable concern, in [...] Pulmonary Function Test - (11/08/2024 11:14 AM BEEF PLUCK TRIMMER) FVC PRE 2.50 L [facility] FVC %PRE PRED 90 % [facility] FEV1 PRE 1.98 L [facility] FEV1 %PRE PRED 91 % [facility] FEV1/FVC PRE 79.0 % [facility] Anatomical Region Laterality Modality PFT 11/08/2024 10:2 9 AM BEEF PLUCK TRIMMER Narrative 11/08/2024 1:44 PM BEEF PLUCK TRIMMER Table formatting from the original result was not included. [facility] Division of Pulmonary & Critical Care Medicine [address] [place] [address]; [facility]; [place] [address]; [phone] Pulmonary Function Laboratory Pulmonary Stress Test Simple/Oxygen [...] Work [distance (m) x body wt (kg)]: 16916 kg.m (normal >60,000kg.m) Oxygen required to maintain [...] with the written final report. PFT performed at:->[facility] Adult PFT Lab- CAM-8D Procedure:->Spirometry Procedure:->Oxygen [...] and %HbO2 is age dependent. However, the [facility] Pulmonary Function Laboratory defines hypoxemia as a PaO2 <56 mm Hg or a %HbO2 <89%. [facility] PFT ORDERABLES Final Result * Dexa Axial Skeleton Bone Density 1 or 2 Site (05/25/2023 10:54 AM CDT) Anatomical Region Laterality Modality Body N/A Radiographic Ynes ging Narrative 05/27/2023 3:40 PM CDT Patient Name: Eugenia Pinzon Date of : 1960 Date of scan: 05/25/2023 Bone mineral density was performed on a [employer] Discovery Densitometer. Based on machine cross-calibration and [...] by the International Society of Clinical Densitometry. [id number] Gail Wyatt MD IM DXA PROCEDURES F inal Result * Hepatitis panel, acute (12/22/2018 1:58 PM BEEF PLUCK TRIMMER) Hep A IgM NON-REACTIVE NON-REAC TIVE [facility] [place] [facility] [place] Comment: WE RECEIVED YOUR HANDWRITTEN TEST ORDER AND PERFORMED AN ACUTE HEPATITIS PANEL. IF THIS IS NOT WHAT YOU INTENDED TO ORDER, PLEASE CONTACT YOUR LOCAL BUSINESS DEVELOPMENT MANAGER IMMEDIATELY SO THAT WE CAN ADJUST [...] INTENDED TO ORDER, PLEASE CONTACT YOUR LOCAL BUSINESS DEVELOPMENT MANAGER IMMEDIATELY SO THAT WE CAN ADJUST OUR BILLING APPROPRIATELY. YOU MAY ALSO INQUIRE ABOUT ALTERNATIVE OR ADDITIONAL TESTING. Hep B core IgM NON-REACTIVE NON-REAC TIVE [facility] [place] [facility] [place]: WE RECEIVED YOUR HANDWRITTEN TEST ORDER AND PERFORMED AN ACUTE HEPATITIS PANEL. IF THIS IS NOT WHAT YOU INTENDED TO ORDER, PLEASE CONTACT YOUR LOCAL BUSINESS DEVELOPMENT MANAGER IMMEDIATELY SO THAT WE CAN ADJUST [...] INTENDED TO ORDER, PLEASE CONTACT YOUR LOCAL BUSINESS DEVELOPMENT MANAGER IMMEDIATELY SO THAT WE CAN ADJUST OUR BILLING APPROPRIATELY. YOU MAY ALSO INQUIRE ABOUT ALTERNATIVE OR ADDITIONAL TESTING. 12/22/2018 1:58 PM BEEF PLUCK TRIMMER 12/22/2018 2:01 PM BEEF PLUCK TRIMMER Narrative Resulting Agency Comment Performing Organization Information: Site ID: [id number] Name: [email or web address] Address: [address] [address] Director: Amandeep Suárez D.O., MPH us Antony Brennan MD LAB MICROBIOLOGY - GENERAL OR DERABLES Final Result [facility] [place] [employer] from Last 3 Months or Most Recently Relevant to Health Maintenance Insurance [facility]IC[facility] Address: [place] [id number] [place] [id number] [employer] [facility] MED[facility] Address: [place] [id number] [place] [id number] Care Teams Energy Sales Broker Relationship Specialty Start Date End Date Rod Buckner PA [address] [facility] [address] [place] [address] PCP - General Physician Manager Forms 02/15/19 Gail Wyatt MD [address] [place] [address] Medical Oncologist/Shuttle Filler Medical Oncology 07/23/22
--- OUTSIDE RECORDS SUMMARY | 2025-02-01 17:50 | XMS_ITS | Encounter Summary ---
Author Organization [facility] Address [address] [place] [address] Care Team Providers Care Refrigeration Plant Operator Name Role Phone Rod Buckner PA-C [...] on file Legal Sex Female 5:09 AM MOLYBDENUM STEAMER OPERATOR Gender Identity Not on file Sexual Orientation Not on file documented as of this encounter Plan of Treatment Not on file documented as of this encounter Visit Diagnoses Diagnosis Multiple sclerosis (CMS/HCC)- Primary Multiple sclerosis documented in this encounter Care Teams Refrigeration Plant Operator Relationship Specialty Start Date End Date Rod Buckner PA-C PCP - General Physician Sole Ruffer 10/05/20 documented as of this encounter
--- OUTSIDE RECORDS SUMMARY | 2025-02-01 17:50 | XMS_ITS | Encounter Summary ---
Author Organization [facility] Address [address] [place] [address] Care Team Providers Care Wildland Fire Operations Specialist Name Role Phone Rod Buckner PA-C Primary Care Provide r Encounter Details Date Type Department Care Team (Latest Contact Info) Description 05/05/2008 Outpatient Historical [facility] [address] [place] [address] Armida Mendez MD [address] [facility] [address] [place] [address] Multiple Sclerosis (CMS/HCC) (Primary Dx) Social History Tobacco Use Types Packs/Day Years Used Date Smoking Tobacco: Never Assessed Comments Unknown Sex and Gender Information Value Date Recorded Sex Assigned at Not on file Legal Sex Female 5:09 AM SCIENCE WRITER Gender Identity Not on file Sexual Orientation Not on file documented as of this encounter Plan of Treatment Not on file documented as of this encounter Visit Diagnoses Diagnosis Multiple sclerosis (CMS/HCC)- Primary Multiple sclerosis documented in this encounter Care Teams Wildland Fire Operations Specialist Relationship Specialty Start Date End Date Rod Buckner PA-C PCP - General Physician Affiliate Marketing Specialist 10/05/20 documented as of this encounter
--- OUTSIDE RECORDS SUMMARY | 2025-02-01 17:50 | XMS_ITS | Encounter Summary ---
Author Organization [facility] Address [address] [place] [address] Care Team Providers Care Seat Cover Cutter Name Role Phone Rod Buckner PA-C Primary Care Provide r Encounter Details Date Type Department Care Team (Latest Contact Info) Description 07/12/2008 Outpatient Historical [facility] Stella Rutherford, PhD Dept. of Neuropsychology [address] [place] [address] Multiple Sclerosis (CMS/HCC) Social History Tobacco Use Types Packs/Day Years Used Date Smoking Tobacco: Never Assessed Comments Unknown Sex and Gender Information Value Date Recorded Sex Assigned at Not on file Legal Sex Female 5:09 AM ACCOUNT CONSULTANT Gender Identity Not on file Sexual Orientation Not on file documented as of this encounter Plan of Treatment Not on file documented as of this encounter Visit Diagnoses Diagnosis Multiple sclerosis (CMS/HCC) Multiple sclerosis documented in this encounter Care Teams Seat Cover Cutter Relationship Specialty Start Date End Date Rod Buckner PA-C PCP - General Physician Jewel Setter 10/05/20 documented as of this encounter
--- OUTSIDE RECORDS SUMMARY | 2025-02-01 17:50 | XMS_ITS | Encounter Summary ---
Author Organization [employer] Address [address] [place] [address] Care Team Providers Care Straight Tooth Gear Generator Operator Name Role Phone Rod Buckner PA-C Primary Care Provide r Encounter Details Date Type Department Care Team (Late st Contact Info) Description 08/06/2004 Outpatient Historical Division of Neurology [address] [address] Armida Mendez MD [address] [facility] [address] [place] [address] Social History Tobacco Use Types Packs/Day Years Used Date Smoking Tobacco: Never Assessed Comments Unknown Sex and Gender Information Value Date Recorded Sex Assigned at Not on file Legal Sex Female 5:09 AM CERTIFIED MEDICATION TECHNICIAN Gender Identity Not on file Sexual Orientation Not on file documented as of this encounter Plan of Treatment Not on file documented as of this encounter Visit Diagnoses Not on filedocumented in this encounter Care Teams Straight Tooth Gear Generator Operator Relationship Specialty Start Date End Date Rod Buckner PA-C PCP - General Physician Patient Financial Counselor 10/05/20 documented as of this encounter
--- OUTSIDE RECORDS SUMMARY | 2025-02-01 17:50 | XMS_ITS | Encounter Summary ---
Author Organization [facility] Address [address] [place] [address] Care Team Providers Care Acreage Reporter Name Role Phone Rod Buckner PA-C Primary Care Provide r Encounter Details Date Type Department Care Team (Latest Contact Info) Description 09/14/2008 Outpatient Historical [facility] ST Hand Therapy [address] [place] [address] Armida Mendez MD [address] [facility] [address] [place] [address] Multiple Sclerosis (CMS/HCC) (Primary Dx) Social History Tobacco Use Types Packs/Day Years Used Date Smoking Tobacco: Never Assessed Comments Unknown Sex and Gender Information Value Date Recorded Sex Assigned at Not on file Legal Sex Female 5:09 AM COMPUTATIONAL PHYSICIST Gender Identity Not on file Sexual Orientation Not on file documented as of this encounter Plan of Treatment Not on file documented as of this encounter Visit Diagnoses Diagnosis Multiple sclerosis (CMS/HCC)- Primary Multiple sclerosis documented in this encounter Care Teams Acreage Reporter Relationship Specialty Start Date End Date Rod Buckner PA-C PCP - General Physician Automobile Upholsterer 10/05/20 documented as of this encounter
--- OUTSIDE RECORDS SUMMARY | 2025-02-01 17:50 | XMS_ITS | Encounter Summary ---
Author Organization [employer] Address [address] [place] [address] Care Team Providers Care Fur Dresser Name Role Phone Rod Buckner PA-C Primary Care Provide r Encounter Details Date Type Department Care Team (Latest Contact Info) Description 02/26/2000 Outpatient Historical [facility] Beni Beard V., PhD [address] [place] [address] Multiple sclerosis (CMS/HCC) (Primary Dx) Social History Tobacco Use Types Packs/Day Years Used Date Smoking Tobacco: Never Assessed Comments Unknown Sex and Gender Information Value Date Recorded Sex Assigned at Not on file Legal Sex Female 5:09 AM OPTICAL LAB TECHNICIAN Gender Identity Not on file Sexual Orientation Not on file documented as of this encounter Plan of Treatment Not on file documented as of this encounter Visit Diagnoses Diagnosis Multiple sclerosis (CMS/HCC)- Primary Multiple sclerosis documented in this encounter Care Teams Fur Dresser Relationship Specialty Start Date End Date Rod Buckner PA-C PCP - General Physician Casing Crew Pusher 10/05/20 documented as of this encounter
--- OUTSIDE RECORDS SUMMARY | 2025-02-01 17:50 | XMS_ITS | Encounter Summary ---
Author Organization [facility] [place] Address [address] [place] [address] Care Team Providers Care Senior Boiler Operator Name Role Phone Rod Buckner PA-C Primary Care Provide r Encounter Details Date Type Department Care Team (Late st Contact Info) Description 06/06/2008 Outpatient Historical [facility] ST Sports Rehabilitation [address] [place] [address] Armida Mendez MD [address] [facility] [address], [place] [address] Social History Tobacco Use Types Packs/Day Years Used Date Smoking Tobacco: Never Assessed Comments Unknown Sex and Gender Information Value Date Recorded Sex Assigned at Not on file Legal Sex Female 5:09 AM RAILWAYS ASSISTANT Gender Identity Not on file Sexual Orientation Not on file documented as of this encounter Plan of Treatment Not on file documented as of this encounter Visit Diagnoses Not on filedocumented in this encounter Care Teams Senior Boiler Operator Relationship Specialty Start Date End Date Rod Buckner PA-C PCP - General Physician Software Quality Assurance Engineer 10/05/20 documented as of this encounter
--- OUTSIDE RECORDS SUMMARY | 2025-02-01 17:50 | XMS_ITS | Encounter Summary ---
Author Organization [facility] Address [address] [place] [address] Care Team Providers Care Cake Washer Name Role Phone Rod Buckner PA-C Primary Care Provide r Encounter Details Date Type Department Care Team (Late st Contact Info) Description 04/29/2003 Outpatient Historical [facility] MRI DEPT Armida Mendez MD [address] [facility] [address] [place] [address] MULTIPLE SCLEROSIS (CMS/HCC) (Primary Dx) Social History Tobacco Use Types Packs/Day Years Used Date Smoking Tobacco: Never Assessed Comments Unknown Sex and Gender Information Value Date Recorded Sex Assigned at Not on file Legal Sex Female 5:09 AM WAREHOUSE SHIFT SUPERVISOR Gender Identity Not on file Sexual Orientation Not on file documented as of this encounter Plan of Treatment Not on file documented as of this encounter Visit Diagnoses Diagnosis Multiple sclerosis (CMS/HCC)- Primary Multiple sclerosis documented in this encounter Care Teams Cake Washer Relationship Specialty Start Date End Date Rod Buckner PA-C PCP - General Physician Contact Assembler 10/05/20 documented as of this encounter
--- OUTSIDE RECORDS SUMMARY | 2025-02-01 17:50 | XMS_ITS | Encounter Summary ---
Author Organization [facility] Address [address] [place] [address] Care Team Providers Care Merchandise Complaint Adjuster Name Role Phone Rod Buckner PA-C Primary Care Provide r Encounter Details Date Type Department Care Team (Late st Contact Info) Description 01/11/2009 Outpatient Historical [facility] MRI DEPT Armida Hubbard MD [address] [facility] [address] [place] [address] Social History Tobacco Use Types Packs/Day Years Used Date Smoking Tobacco: Never Assessed Comments Unknown Sex and Gender Information Value Date Recorded Sex Assigned at Not on file Legal Sex Female 5:09 AM DENTIST Gender Identity Not on file Sexual Orientation Not on file documented as of this encounter Plan of Treatment Not on file documented as of this encounter Procedures Procedure Name Priority Date/Time Associated Diagnosis Comments MRI BRAIN W WO CONTRAST Timed Study 01/11/2009 8:44 AM DENTIST POC CREATININE Routine 01/11/2009 8:01 AM DENTIST XR SKULL LESS THAN 4 VW Timed Study 01/11/2009 7:42 AM DENTIST documented in this encounter Results * MRI BRAIN W WO CONTRAST (01/11/2009 8:44 AM DENTIST) Anatomical Region Laterality Modality Head Other 01/11/2009 8:44 AM DENTIST Narrative 01/11/2009 4:40 PM DENTIST [place] [address] [place], [place] [address] Admit Date: 01/11/2009 EUGENIA PINZON Sex: F Admit Prov: ARMIDA HUBBARD Date: 1960 Primary Care Prov: NICKO GARCIA CMRN: [id number] [id number] [facility] Ordering Prov: N/A Accession Number: [id number] Interpretation MRI BRAIN WITHOUT AND WITH IV [...] SMM Procedure Note Claude Gonzalez - 01/11/2009 [place] [address] [place], [place] [address] Admit Date: 01/11/2009 EUGENIA PINZON Sex: F Admit Prov: ARMIDA HUBBARD Date: 1960 Primary Care Prov: NICKO GARCIA CMRN: [id number] [facility] [id number] IM[facility]ING SERVICES Ordering Prov: N/A Interpretation MRI [...] CLAUDE GONZALEZ 01/11/2009 16:38 Transcribed: 01/11/2009 14:19 [facility] Armida Hubbard MD MR ORDERABLES Final Result * (ABNORMAL) POC CREATININE (01/11/2009 8:01 AM DENTIST) CREATININE POC 1.0 0.6 - 1.3 mg/dL [facility] Comment: The calculation for the estimated GFR on the i-STAT POC instrument has been changed to correspond to the IDMS-traceable MDRD Study, upon the recommendation of the customer services manager of the i-STAT instrument. The change was effective in our laboratory 11/06/2008. The impact of this change to the estimated GFR is minimal. This calculation is used by the main laboratory methodology also. GFR, >60 >=60 mL/min/1.7 sq meter [facility] GFR 59(L) >=60 mL/min/1.7 sq meter [facility] Capillary blood specimen (specimen) 01/11/2009 8:01 AM DENTIST 01/11/2009 8:01 AM DENTIST us Armida Hubbard MD POINT OF CARE TESTING Edited INTERFACE SYSTEM Refer to clinic/hospital department [facility] CLIA# [id number] [address] [address] * XR SKULL < 4 VW (01/11/2009 7:42 AM DENTIST) Anatomical Region Laterality Modality Head Other 01/11/2009 7:42 AM DENTIST Narrative 01/11/2009 3:14 PM DENTIST [facility] [address] [place], [place] [address] Admit Date: 01/11/2009 EUGENIA PINZON Sex: F Admit Prov: ARMIDA HUBBARD Date: 1960 Primary Care Prov: NICKO GARCIA CMRN: [id number] [facility] [id number] IM[facility]ING SERVICES Ordering Prov: N/A Accession Number: [id number] Interpretation SKULL 2 VIEWS FOR INTRAOCULAR METAL [...] Procedure Note Andreea Hook MD - 01/11/2009 [place] [id number] [place], [place] [address] Admit Date: 01/11/2009 EUGENIA PINZON Sex: F Admit Prov: ARMIDA HUBBARD Date: 1960 Primary Care Prov: NICKO GARCIA CMRN: [id number] [facility] [id number] [facility] Ordering Prov: N/A Interpretation SKULL [...] on filedocumented in this encounter Care Teams Merchandise Complaint Adjuster Relationship Specialty Start Date End Date Rod Buckner PA-C PCP - General Physician Dry House Tender 10/05/20 documented as of this encounter
--- OUTSIDE RECORDS SUMMARY | 2025-02-01 17:50 | XMS_ITS | Encounter Summary ---
Author Organization [facility] Address [address] [address] Care Team Providers Care Drum Loader And Unloader Name Role Phone Rod Buckner PA-C Primary Care Provide r Zuly Miller MD Unavailable [phone] Encounter Details Date Type Department Care Team (Late st Contact Info) Description 05/22/2022 Patient Outreach [facility] ENDOSCOPY [address] [place] [phone] Shanice Hernandez, RN Social History Tobacco Use [...] Visit [facility] - GI [address] [facility], [place] [phone] Isai Leon MD [address] [place] [address] 08/21/2025 11:30 AM CDT Office Visit [facility] - General Surgery [address] [place] [address] Bebe Faulkner MD [address] [facility] [address] [place] [address] documented as of this encounter Goals Goal Patient Goal Type Associated Problems Recent Progress Patient-Stated? Author Safety General On track( 024 2:13 PM ADULT SCHOOL COUNSELOR) Ml Serra, RN Note: Expected end date: Ongoing Interventions: Your nurse will assess your risk for falls/injury each visit Use appropriate and safe transfer methods Medication Management General On track( 024 2:13 PM ADULT SCHOOL COUNSELOR) Ml Serra, RN Note: Expected end date: Ongoing Interventions: Take all medications as prescribed Let your doctor know right away about any changes in your medications documented as of this encounter Visit Diagnoses Not on filedocumented in this encounter Care Teams Drum Loader And Unloader Relationship Specialty Start Date End Date Rod Buckner PA-C [address] [facility] [address] [place] [address] PCP - General 02/18/19 Zuly Miller MD [address] [address] Hematology and Oncology 02/17/24 documented as of this encounter
--- OUTSIDE RECORDS SUMMARY | 2025-02-01 17:50 | XMS_ITS | Encounter Summary ---
Author Organization [employer] Address [address] [place] [address] Care Team Providers Care Engine Assembly Supervisor Name Role Phone Rod Buckner PA-C Primary Care Provide r Encounter Details Date Type Department Care Team (Late st Contact Info) Description 04/08/2006 Outpatient Historical Division of Neurology [address] [address] Armida Mendez MD [address] [facility] [address] [place] [address] Social History Tobacco Use Types Packs/Day Years Used Date Smoking Tobacco: Never Assessed Comments Unknown Sex and Gender Information Value Date Recorded Sex Assigned at Not on file Legal Sex Female 5:09 AM CUSTOMER COUNTER ASSOCIATE Gender Identity Not on file Sexual Orientation Not on file documented as of this encounter Plan of Treatment Not on file documented as of this encounter Visit Diagnoses Not on filedocumented in this encounter Care Teams Engine Assembly Supervisor Relationship Specialty Start Date End Date Rod Buckner PA-C PCP - General Physician Director Building 10/05/20 documented as of this encounter
--- OUTSIDE RECORDS SUMMARY | 2025-02-01 17:50 | XMS_ITS | Encounter Summary ---
Author Organization [facility] Address [address] [place] [address] Care Team Providers Care Shipping And Receiving Weigher Name Role Phone Rod Buckner PA-C Primary Care Provide r Encounter Details Date Type Department Care Team (Latest Contact Info) Description 04/03/2008 Outpatient Historical [facility] Sports Rehabilitation [address] [place] [address] Armida Mendez MD [address] [facility] [address] [place] [address] Multiple Sclerosis (CMS/HCC) (Primary Dx) Social History Tobacco Use Types Packs/Day Years Used Date Smoking Tobacco: Never Assessed Comments Unknown Sex and Gender Information Value Date Recorded Sex Assigned at Not on file Legal Sex Female 5:09 AM CONSULTING IT ARCHITECT Gender Identity Not on file Sexual Orientation Not on file documented as of this encounter Plan of Treatment Not on file documented as of this encounter Visit Diagnoses Diagnosis Multiple sclerosis (CMS/HCC)- Primary Multiple sclerosis documented in this encounter Care Teams Shipping And Receiving Weigher Relationship Specialty Start Date End Date Rod Buckner PA-C PCP - General Physician Cable Splicer Assistant 10/05/20 documented as of this encounter
--- OUTSIDE RECORDS SUMMARY | 2025-02-01 17:50 | XMS_ITS | Encounter Summary ---
Author Organization [employer] Address [address] [place] [address] Care Team Providers Care Garageman Name Role Phone Rod Buckner PA-C Primary Care Provide r Encounter Details Date Type Department Care Team (Late st Contact Info) Description 07/29/2002 Outpatient Historical Division of Neurology [address] [address] Armida Mendez MD [address] [facility] [address] [place] [address] Social History Tobacco Use Types Packs/Day Years Used Date Smoking Tobacco: Never Assessed Comments Unknown Sex and Gender Information Value Date Recorded Sex Assigned at Not on file Legal Sex Female 5:09 AM CYTOGENETICIST Gender Identity Not on file Sexual Orientation Not on file documented as of this encounter Plan of Treatment Not on file documented as of this encounter Visit Diagnoses Not on filedocumented in this encounter Care Teams Garageman Relationship Specialty Start Date End Date Rod Buckner PA-C PCP - General Physician Strip Deburrer 10/05/20 documented as of this encounter
--- OUTSIDE RECORDS SUMMARY | 2025-02-01 17:50 | XMS_ITS | Encounter Summary ---
Author Organization [facility] Address [address] [facility] [place] [address] Care Team Providers Care Big Data Developer Name Role Phone Rod Buckner PA-C Primary Care Provide r Zuly Miller MD Unavailable [phone] Encounter Details Date Type Department Care Team (Late st Contact Info) Description 01/15/2023 Lab Requisition [facility] Care DermPath Lab [address] [facility], [place] [address] Dario Pérez MD [address] [place] [address] Social History Tobacco Use Types [...] Visit [facility] - GI [address] [facility], [place] [address] Isai Leon MD [address] [place] [phone] 08/21/2025 11:30 AM CDT Office Visit [facility] - General Surgery [address] [place] [address] Bebe Faulkner MD [address] [facility] [address] [place] [address] documented as of this encounter Goals Goal Patient Goal Type Associated Problems Recent Progress Patient-Stated? Author Safety General On track( 2:13 PM TIMBER SIZER OPERATOR) Ml Serra, RN Note: Expected end date: Ongoing Interventions: Your nurse will assess your risk for falls/injury each visit Use appropriate and safe transfer methods Medication Management General On track( 024 2:13 PM TIMBER SIZER OPERATOR) No Ml Livingston, RN Note: Expected end date: Ongoing Interventions: Take all medications as prescribed Let your doctor know right away about any changes in your medications documented as of this encounter Procedures Procedure Name Priority Date/Time Associated Diagnosis Comments DERMATOPATHOLOGY Routine 01/15/2023 12:0 0 AM TIMBER SIZER OPERATOR documented in this encounter Results * DERMATOPATHOLOGY (01/15/2023 12:00 AM TIMBER SIZER OPERATOR) Case Report Dermatopathology Report Case: [id number] Authorizing Provider: Dario Pérez MD Collected: 01/15/2023 12:00 AM Ordering Location: [facility] Received: 01/15/2023 04:51 PM Pathologist: Goldie Choudhary MD Specimen: Skin, left thumb 3 11:02 AM [facility] Final Diagnosis Specimen A. SKIN, left thumb: [place] (B07.8) 3 11:02 AM [facility]MAT[facility]Y [facility] Clinical History Patch/plaque eczema, contact, Reena, [facility], [place] 3 11:02 AM [facility] Gross Description Specimen A: Received is one formalin filled container labeled with the patient's name and designated left thumb. The specimen consists of a shave biopsy measuring 8x4x1 mm. Jar 0. 3 11:02 AM [facility]ERMAT[facility]Y [facility] Microscopic Description Specimen A. SKIN, left thumb: There is gently papillated epidermal hyperplasia, hypergranulosis, and laminated hyperorthokeratosis . 3 11:02 AM [facility]ERMAT[facility] Disclaimer An external and internal positive and negative controls are appropriate for the histochemical, immunohistochemical and immunofluorescence stain(s) in this case (if any), except where stated explicitly. The performance characteristics of the stain(s) cited in this report were developed and its performance characteristic determined by the Dermatopathology Laboratory at [facility], directed by Dr. Ced Salazar. These tests need not be, and therefore are not, approved by the [place] Food and Drug Administration. The tests are used for clinical purposes. Billing Codes Specimen Charges Stain Charges 40701 1 3 11:02 AM [facility] Embedded Images 3 11:02 AM [facility] Pathology/Cytolog y TISSUE SPECIMEN FROM SKIN / Unknown 01/15/2023 01/15/2023 4:51 PM TIMBER SIZER OPERATOR Dario Pérez MD LAB - PATHOLOGY/CYTO LOGY ORDERABLES DERMATOPATHOLOGY LABORATORY [facility] - Department of Dermatology [facility] Medicine [address] [place] [address], [address] [phone] documented in this encounter Visit Diagnoses Not on filedocumented in this encounter Care Teams Big Data Developer Relationship Specialty Start Date End Date Rod Buckner PA-C [address] [facility] [address] [place] [address] PCP - General 02/18/19 Zuly Miller MD [address] [address] Hematology and Oncology 02/17/24 documented as of this encounter
--- OUTSIDE RECORDS SUMMARY | 2025-02-01 17:50 | XMS_ITS | Encounter Summary ---
Author Organization [employer] Address [address] [place] [address] Care Team Providers Care Turning Sander Operator Name Role Phone Rod Buckner PA-C Primary Care Provide r Encounter Details Date Type Department Care Team (Late st Contact Info) Description 02/19/2005 Outpatient Historical Division of Neurology [address] [address] Armida Mendez MD [address] [facility] [address] [place] [address] Social History Tobacco Use Types Packs/Day Years Used Date Smoking Tobacco: Never Assessed Comments Unknown Sex and Gender Information Value Date Recorded Sex Assigned at Not on file Legal Sex Female 5:09 AM QUESTIONED DOCUMENTS EXAMINER Gender Identity Not on file Sexual Orientation Not on file documented as of this encounter Plan of Treatment Not on file documented as of this encounter Visit Diagnoses Not on filedocumented in this encounter Care Teams Turning Sander Operator Relationship Specialty Start Date End Date Rod Buckner PA-C PCP - General Physician Circulation Sales Representative 10/05/20 documented as of this encounter
--- OUTSIDE RECORDS SUMMARY | 2025-02-01 17:50 | XMS_ITS ---
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 Assessment & Plan (12/08/2019 10:20 AM POLICE CHIEF): Continue Emgality monthly Continue Botox Should not [...] depression Assessment & Plan (12/08/2019 10:36 AM POLICE CHIEF): Continue following with Dr. [place] Asthma 08/24/2015 [...] hypercholesterolemia 09/11/2011 Atherosclerotic heart diseas e of [place] coronary artery without angina pectoris 09/10/2011 Edema 09/10/2011 Essential (primary) hypertension 09/10/2011 Heart failure, unspecified ([facility]/HCC) 09/10/2011 Multiple sclerosis ([facility]) 12/07/2008 Assessment & Plan (09/21/2024 10:28 AM [...] imaging. She did go to [facility] [place] in the past, but left when she [...] discussed. Assessment & Plan (12/08/2019 10:31 AM POLICE CHIEF): Discussed the option of oral medication due [...] 6 months or sooner if needed Current Treatment and Therapy Plans Zoledronic Acid (ZOMETA) Infusion* Plan Start Date:02/20/2023 Plan Provider:Gail Wyatt MD Linked Problems regional intermodal truck driver (current) use of a romatase inhibitorsMalignant neoplasm of upper-outer quadrant of left breast in female, estrogen receptor positive (HCC) Treatment Medications No medications scheduled. Past Treatment and Therapy Plans No past plan information found. Lifetime Dose Tracking * Chemical Lifetime Dose [...] T1bN0(i-)M0, stage IA. ER pos 100% (strong), MI pos 100% (strong), Her-2 neg (0 on [...]
--- OUTSIDE RECORDS SUMMARY | 2025-02-01 17:50 | XMS_ITS | Encounter Summary ---
Author Organization [facility] Address [address] [place] [address] Care Team Providers Care Transfer Station Attendant Name Role Phone Rod Buckner PA-C Primary Care Provide r Encounter Details Date Type Department Care Team (Late st Contact Info) Description 08/22/2005 Outpatient Historical Division of Neurology [address] [address] Armida Mendez MD [address] [facility] [address] [place] [address] Social History Tobacco Use Types Packs/Day Years Used Date Smoking Tobacco: Never Assessed Comments Unknown Sex and Gender Information Value Date Recorded Sex Assigned at Not on file Legal Sex Female 5:09 AM CERTIFIED REGISTERED DENTAL ASSISTANT Gender Identity Not on file Sexual Orientation Not on file documented as of this encounter Plan of Treatment Not on file documented as of this encounter Visit Diagnoses Not on filedocumented in this encounter Care Teams Transfer Station Attendant Relationship Specialty Start Date End Date Rod Buckner PA-C PCP - General Physician Assistant Teaching Professor 10/05/20 documented as of this encounter
--- OUTSIDE RECORDS SUMMARY | 2025-02-01 17:50 | XMS_ITS | Encounter Summary ---
Author Organization [facility] Address [address] [place] [address] Care Team Providers Care Welding Machine Setter Name Role Phone Rod Buckner PA-C Primary [...] on file Legal Sex Female 5:09 AM EXHIBITION CARVER Gender Identity Not on file Sexual Orientation Not on file documented as of this encounter Plan of Treatment Not on file documented as of this encounter Visit Diagnoses Diagnosis Displacement of cervical intervertebral disc without myelopathy- Primary documented in this encounter Care Teams Welding Machine Setter Relationship Specialty Start Date End Date Rod Buckner PA-C PCP - General Physician Marketing Operations Coordinator 10/05/20 documented as of this encounter
--- OUTSIDE RECORDS SUMMARY | 2025-02-01 17:50 | XMS_ITS | Encounter Summary ---
Author Organization [facility] Address [address] [place] [address] Care Team Providers Care Landing Gear Mechanic Name Role Phone Rod Buckner PA-C Primary Care Provide r Encounter Details Date Type Department Care Team (Latest Contact Info) Description 11/07/2008 Outpatient Historical [facility] González Roy MD [address] [place] [phone] Unspecified Asthma Social History Tobacco Use Types Packs/Day Years Used Date Smoking Tobacco: Never Assessed Comments Unknown Sex and Gender Information Value Date Recorded Sex Assigned at Not on file Legal Sex Female 5:09 AM MANAGER ETL Gender Identity Not on file Sexual Orientation Not on file documented as of this encounter Plan of Treatment Not on file documented as of this encounter Visit Diagnoses Diagnosis Unspecified asthma(493.90) Unspecified asthma documented in this encounter Care Teams Landing Gear Mechanic Relationship Specialty Start Date End Date Rod Buckner PA-C PCP - General Physician Admission Nurse 10/05/20 documented as of this encounter
--- OUTSIDE RECORDS SUMMARY | 2025-02-01 17:50 | XMS_ITS | Encounter Summary ---
Author Organization [employer] Address [address] [place] [address] Care Team Providers Care Personnel Generalist Manager Name Role Phone Rod Buckner PA-C Primary Care Provide r Encounter Details Date Type Department Care Team (Late st Contact Info) Description 10/20/2006 Outpatient Historical Division of Neurology [address] [address] Armida Mendez MD [address] [facility] [address] [place] [address] Social History Tobacco Use Types Packs/Day Years Used Date Smoking Tobacco: Never Assessed Comments Unknown Sex and Gender Information Value Date Recorded Sex Assigned at Not on file Legal Sex Female 5:09 AM PAYROLL REPRESENTATIVE Gender Identity Not on file Sexual Orientation Not on file documented as of this encounter Plan of Treatment Not on file documented as of this encounter Visit Diagnoses Not on filedocumented in this encounter Care Teams Personnel Generalist Manager Relationship Specialty Start Date End Date Rod Buckner PA-C PCP - General Physician Production Associate 10/05/20 documented as of this encounter
--- OUTSIDE RECORDS SUMMARY | 2025-02-01 17:50 | XMS_ITS | Encounter Summary ---
Author Organization [employer] Address [address] [place] [address] Care Team Providers Care Parent Trainer Name Role Phone Rod Buckner PA-C Primary Care Provide r Encounter Details Date Type Department Care Team (Late st Contact Info) Description 02/02/2001 Outpatient Historical Division of Neurology [address] [address] Armida Mendez MD [address] [facility] [address] [place] [address] Social History Tobacco Use Types Packs/Day Years Used Date Smoking Tobacco: Never Assessed Comments Unknown Sex and Gender Information Value Date Recorded Sex Assigned at Not on file Legal Sex Female 5:09 AM BEHAVIOR THERAPIST Gender Identity Not on file Sexual Orientation Not on file documented as of this encounter Plan of Treatment Not on file documented as of this encounter Visit Diagnoses Not on filedocumented in this encounter Care Teams Parent Trainer Relationship Specialty Start Date End Date Rod Buckner PA-C PCP - General Physician Fuel Storage Technician 10/05/20 documented as of this encounter
--- OUTSIDE RECORDS SUMMARY | 2025-02-01 17:51 | XMS_ITS ---
Author Organization [facility] Address [address] [facility] [place] [address] Care Team Providers Care Library Director Name Role Phone Rod Buckner PA-C Primary Care Provide r Zuly Miller MD Unavailable [phone] Active Problems Problem Noted Date Diagnosed Date Barnard's esophagus 04/19/2024 Diastolic dysfunction 04/19/2024 Osteopenia of multiple sites 10/14/2023 Acquired absence of both breasts 02/07/2021 Breast cancer, right 2019, stage 0 07/06/2020 Cancer Staging:Clinical stage from 09/28/2021:Stage 0(cTis (DCIS), cN0, cM0, G2, ER: Not Assessed, AR: Not Assessed, HER2: Not Assessed) - Signed by Meghana Zapata MD on 09/29/2021 Pathologic stage from 09/29/2021:Stage 0(pTis (DCIS), cN0, cM0, G2, ER: Not Assessed, AR: Not Assessed, HER2: Not Assessed) - Signed [...] from 07/18/2020:Stage IA(cT1b, cN0, cM0, G1, ER+, AR+, HER2-) - Signed by Meghana Zapata MD on 09/29/2021 Pathologic stage from 07/18/2020:Stage IA(pT1b, pN0(sn), cM0, G1, ER+, AR+, HER2- ) - Signed by Meghana Zapata MD on 09/29/2021 Overview (09/29/2021): Left, upper outer, 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 ER pos 100% (strong), AR pos 100% (strong), Her-2 neg (0 on [...] pectoris 09/11/2011 Atherosclerotic heart diseas e of [place] coronary artery without angina pectoris 09/11/2011 Essential [...] treatments are documented for this patient in [facility]. Treatments may have been administered in another system. 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 - Preliminary Celi score 1 (tub 1/nuc 1/zaynab 1). - ER positive, AR positive, HER-2 negative. Date of diagnosis: 06/22/20 Age of diagnosis: 60 Tumor Information Cancer Staging Ductal carcinoma in situ (DCIS) of right breast Staging form: Breast, AJCC 8th Edition - Clinical: No stage assigned - Unsigned - Pathologic stage from 07/18/2020: Stage 0 (pTis (DCIS), cN0, cM0, ER: Not Assessed, AR: Not Assessed, HER2: Not Assessed) - Signed by Jennifer Roy MD on 07/18/2020 Malignant neoplasm of upper-outer quadrant of left breast in female, estrogen receptor positive Staging form: Breast, AJCC 8th Edition - Clinical stage from 07/18/2020: Stage IA (cT1b, cN0, cM0, G1, ER+, AR+, HER2-) - Signed by Jennifer Roy MD on 07/18/2020 - Pathologic stage from 07/18/2020: Stage IA (pT1b, pN0(sn), cM0, G1, ER+, AR+, HER2-) - Signed by Jennifer Roy MD on 07/18/2020 Surgery Information Description: Bilateral TMs, left SLNB and bilateral immediate breast reconstruction with local tissue rearrangement an inferior dermal flaps Date: 07/06/20 Surgeon/Facility Name: Jennifer Roy MD and Nick Rojas MD / [facility] Adjuvant Treatment Recommendations: Medical Oncology referral Initial Imaging Mammogram: 06/22/20; 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 Every patient will have an individualized follow up schedule based on recommendations from national cancer organizations and your specific post- treatment course. Follow up with Location How often Radiation Oncology [facility] Clinical visit every 4-6 months for 5 yrs, then every [address] Pruitt's recommendations Medical Oncology [facility] Surgery [facility] Mammography [facility] You have had bilateral mastectomies Reasons to call: New lesions or mass Chest pain New feelings of sadness or being overwhelmed Unintended weight loss Cough that does not go away Any side effects or questions of care Your follow up schedule is listed below Future Appointments Date Time Provider Department Center 10/08/2020 12:30 PM Nona Alfonso PA-C AFFSLUGIWCOU [facility]FF [facility] [place] 02/21/2021 10:00 AM Arlin Pruitt MD [id number] AFF [facility] 03/01/2021 9:30 AM Janeth Titus MD [id number] [facility] Contact Information Medical Oncologist Arlin Pruitt MD Surgeon Jennifer Roy MD / Bebe Faulkner MD Social Work Dietitian Pastoral Care [facility] Hospital Scheduling Primary Care Provider Rod Buckner PA-C [phone] Recommended cancer screenings Colonoscopy: every 10 years [...] walk a few extra steps. Important Resources [facility] [place] [employer] cancer.org Association of Cancer Online Resources acor.org Caring Bridge caringbridge.org CancerCare cancercare.org [facility] livestrong.org National Cancer [place] cancer.gov Cancer Survivors Network csn.cancer.org National Coalition for Cancer Survivorship canceradvocacy.org [place] Society of Clinical Oncologists cancer.net Cancer Support Community of [facility] www.cancersupportstl.org Radiation Therapy Questions/Answers www.rtanswers.org Resolved Problems Problem Noted Date Diagnosed Date Resolved Date History of esophagogastroduodenoscopy (EGD) 01/12/2025 01/12/2025 Functional diarrhea 01/11/2020 04/24/20 21
--- OUTSIDE RECORDS SUMMARY | 2025-02-01 17:51 | XMS_ITS | Patient Health Record ---
Author Organization [facility] Address [address] [facility] [address], [place] [address] Support Name Relationship Address Phone Eugenia Pinzon Guarantor Unknown [phone] Reason For Referral No Information Plan Of Treatment No Information
--- OUTSIDE RECORDS SUMMARY | 2025-02-01 17:51 | XMS_ITS ---
Author Organization [facility] Address [address] [facility] [address] [place] [address] Care Team Providers Care Copy Messenger Name Role Phone zzzzMigration, zzzzProvider Unavailable Unav ailable REASON FOR VISIT EMR-Nicolas Encounters Encounter Location Date Provider Diagnosis [facility] [address] [facility] [address] [place] [address] 09/20/2023 zzzzProvider zzzzMigration Plan Of Treatment No Information Progress Notes * Eugenia ELLISDOB:1960 (64 yo F)Acc No.[id number]:09/20/2023 Patient: Domo WELCHki :1960 A ge:63 Y S ex:Female Address:[address] [place] [address] Subjective: * Chief Complaints: * E MR-Nicolas * Medical History: * Surgical History: * Hospitalization/Major Diagno stic Procedure: * Medications: Objective: * Vitals: * Physical Examination: Assessment: Plan: * Treatment: * Procedure Codes: * * Date:
--- OUTSIDE RECORDS SUMMARY | 2025-02-01 17:51 | XMS_ITS | Encounter Summary ---
Author Organization [facility] Address [address] [facility] [place] [address] Care Team Providers Care Drywall Taper Helper Name Role Phone Rod Buckner PA-C Primary Care Provide r Zuly Miller MD Unavailable [phone] Encounter Details Date Type Department Care Team (Late st Contact Info) Description 06/25/2020 Telephone [facility] [address] [place] [address] Nick Rojas MD [address] [place] [address] Social History Tobacco Use Types Packs/Day Years [...] encounter Miscellaneous Notes * Telephone Encounter - Viki Buckner - 06/25/2020 11:37 AM CDT Per Eveline at [facility], cpt codes: 91213-24, 66007-51, 68111, 03176, and 69669 do not require prior authorization. Patient is scheduled for this as a combo surgery with Dr. Rojas and Dr. Roy on 07/06/2020. Dr. Roy's office is going to reach out to the patient regarding her surgery instructions and COVID testing information. Viki Quiñones [phone] documented in this encounter Plan of Treatment Upcoming Encounters Date Type Department Care Team (Late st Contact Info) Description 02/08/2025 10:30 AM CDT Office Visit [facility] - GI [address] [facility], [place] [address] Isai Leon MD [address] [place] [address] 08/21/2025 11:30 AM CDT Office Visit [facility] - General Surgery [address] [place] [address] Bebe Faulkner MD [address] [facility] [address] [place] [address] documented as of this encounter Goals Goal Patient Goal Type Associated Problems Recent Progress Patient-Stated? Author Safety General On track( 024 2:13 PM HERPETOLOGIST) Ml Serra, RN Note: Expected end date: Ongoing Interventions: Your nurse will assess your risk for falls/injury each visit Use appropriate and safe transfer methods Medication Management General On track( 024 2:13 PM HERPETOLOGIST) Ml Serra, RN Note: Expected end date: Ongoing Interventions: Take all medications as prescribed Let your doctor know right away about any changes in your medications documented as of this encounter Visit Diagnoses Not on filedocumented in this encounter Care Teams Drywall Taper Helper Relationship Specialty Start Date End Date Rod Buckner PA-C [address] [facility] [address] [place] [address] PCP - General 02/18/19 Zuly Miller MD [address] [facility] [address] [place] [address] Hematology and Oncology 02/17/24 documented as of this encounter
--- OUTSIDE RECORDS SUMMARY | 2025-02-01 17:51 | XMS_ITS | Continuity of Care Document ---
Author Organization [facility] Address [address] [place] [address] [address] [place] [address] Phone Care Team Providers Care Hat Cutter Name Role Phone Moreno BULLARD, Dolly Unavailable [...] Provider Providers Copied on Encounter [facility], [address] [place] [address], [id number], tel:[phone] [facility] Office No Information 1 Mayer Dolly. [address], [address], [place], [address], [place]. tel:[phone] OFFICE/OUTPA TIENT VISIT, EST [facility], [address] [place] [address], [id number], [place] tel:[phone] [facility] Office eyes doing well, without complaint. (chief complaint) Multiple sclerosisPresb yopiaRetinal hemorrhage 1 Mayer Dolly. [address], [address], [place], [address], [place]. tel:[phone] [facility], [address] [place] [address], [place], [place], [id number], [place] tel:[phone] [facility] [place] No Information 1 Inderjit Davis. [address] [place] [address], [address], [place], [address], [place]. tel:[phone] [facility], [address] [place] [address], [id number], [place] tel:[phone] [facility] Office No Information 0 Bing Rodriguez. [address], [place], [place], [id number], [place]. tel:[phone] Family History Family Member Type Diagnosis Age At Onset No Information Payers Payer name Insurance type Covered green party ID Authoriza tion(s) No Information Social [...]
== END 2025-02-01 16:39 | disposition home or self-care (01) ==
PROVIDERS: PCP Nurse Practitioner; Visit Provider Nurse Practitioner
DX: R09.89 Other specified symptoms and signs involving the circulatory and respiratory systems (principal)
CPT/HCPCS: 71046

== ENCOUNTER 2025-02-10 11:34 | Emergency (ER) | payer MEDICARE, SELFPAY ==
--- NOTE | ~2025-02-10 | XR_ITS ---
EXAMINATION: XR chest 2V DATE: 02/10/2025 12:32 INDICATION: Cough. Asthma exacerbation. TECHNIQUE: Frontal and lateral views of the chest were obtained. COMPARISON: Chest 2 views 02/01/2025, chest CT 10/16/2023 FINDINGS: There is mild atelectasis in the mid and lower lung zones. No pleural effusion or pneumotho rax. The heart size is normal. IMPRESSION: 1. Mild atelectasis in the mid and lower lung zones. Reviewed, dictated and finalized at location L.
--- NOTE | 2025-02-10 11:39 | ED.URI ---
HPI - URI/Sore Throat General Chief Complaint: Upper Respiratory Infection Stated Complaint: ASTHMA Time Seen by Provider: 02/10/25 11:35 Source: patient Mode of arrival: ambulatory Limitations: no limitations History of Present Illness HPI Narrative: Patient is a 64-year-old female that presents or asthma exacerbation. Patient states she has been sick for 1 month and feels like she is not getting a good deep breath. She is currently on steroids a 12 day taper that was started on 02/03. Patient was on doxycycline 12/02, Cipro 12/23, Levofloxacin 01/06 and 01/13, and then Cipro again 01/21. Patient was also on Medro dose pack 01/21. While waiting for chest x-ray results patient also states she may have a UTI, but unable to describe symptoms, as well and would like urine tested. Last urine culture was 12/19/24 and had no bacterial growth Related Data Home Medications ?Medication ?Instructions ?Recorded ?Confirmed ?Last Taken ?Type aspirin 81 mg tablet,delayed 81 mg PO DAILY 12/15/19 02/10/25 Unknown History release (Adult Low Dose Aspirin) biotin 5 mg capsule 5 mg PO DAILY 12/15/19 02/10/25 Unknown History galcanezumab-gnlm 120 mg/mL 120 mg subcut MONTHLY 12/15/19 02/10/25 Unknown History subcutaneous pen injector (Emgality Pen) glatiramer 20 mg/mL subcutaneous 20 mg subcut DAILY 12/15/19 02/10/25 Unknown History syringe (Copaxone) mecobalamin (vitamin B12) 5,000 5,000 mcg PO .QD 12/15/19 02/10/25 Unknown History mcg disintegrating tablet multivitamin (Multiple Vitamins 1 tablet PO DAILY 12/15/19 02/10/25 Unknown History tablet) zinc 50 mg tablet 50 mg PO DAILY 12/15/19 02/10/25 Unknown History glucosamine-chondroitin 500 mg-400 1 cap PO TID 08/27/20 02/10/25 Unknown History mg capsule simethicone 125 mg chewable tablet 250 mg PO TID 08/27/20 02/10/25 Unknown History (Gas-X Extra Strength) calcium carbonate (Tums) 400 mg PO TID PRN Abdominal Pain 03/05/21 02/10/25 Unknown History cranberry fruit 400 mg capsule 400 mg PO TID 03/05/21 02/10/25 Unknown History baclofen 10 mg tablet 30 mg PO QID muscle spasm 08/07/21 02/10/25 Unknown History desipramine 10 mg tablet 15 mg PO QPM 08/07/21 02/10/25 Unknown History fluticasone propionate 50 1 spray intranasal DAILY 05/19/22 02/10/25 Unknown History mcg/actuation nasal spray,suspension (Flonase Allergy Relief) Lactobacills gasseri-Bifidobac 1 cap PO DAILY 07/28/22 02/10/25 Unknown History bifidum,longum 1.5 billion cell capsule (Amvona) acetaminophen 500 mg tablet 500 mg PO Q6H PRN Pain 07/28/22 02/10/25 Unknown History (Tylenol Extra Strength) fluoride (sodium) 1.1 % dental gel 1 applic dental HS 07/28/22 02/10/25 Unknown History (PreviDent) sodium bicarbonate-sodium 1 ea TID 07/28/22 01/06/25 Unknown History chloride-neti pot nasal rinse with packet ([employer] NasaFlo packet with sinus rinse device) omega 9-hla-hlh-fish oil 1,000 mg 3 cap PO DAILY 08/19/22 02/10/25 Unknown History (120 mg-180 mg) capsule (Fish Oil) tiotropium 2.5 mcg-olodaterol 2.5 1 puff inhalation BID 06/09/23 02/10/25 Unknown History mcg/actuation mist for inhalation (Stiolto Respimat) exemestane 25 mg tablet 25 mg PO DAILY 07/27/23 02/10/25 Unknown History albuterol sulfate 90 mcg/actuation 2 inh inhalation DAILY 02/10/25 02/10/25 Unknown History aerosol inhaler (Ventolin HFA) levothyroxine 175 mcg tablet 175 mcg PO DAILY 02/10/25 02/10/25 Unknown History (Levo-T) Allergies Allergy/AdvReac Type Severity Reaction Status Date / Time adhesive tape Allergy Mild Unknown Verified 02/10/25 11:51 amphetamine (From Adderall) Allergy Mild Other Verified 02/10/25 11:51 armodafinil (From Nuvigil) Allergy Mild Unknown Verified 02/10/25 11:51 aspartame (From Nutrasweet Allergy Mild Unknown Verified 02/10/25 11:51 Aspartame) cefuroxime (From Ceftin) Allergy Mild Unknown Verified 02/10/25 11:51 dextroamphetamine (From Allergy Mild Other Verified 02/10/25 11:51 Adderall) gabapentin (From Neurontin) Allergy Mild Unknown Verified 02/10/25 11:51 latex Allergy Mild Unknown Verified 02/10/25 11:51 liver extract Allergy Mild Other Verified 02/10/25 11:51 meperidine (From Demerol) Allergy Mild Unknown Verified 02/10/25 11:51 metoclopramide (From Reglan) Allergy Mild Unknown Verified 02/10/25 11:51 metronidazole (From Flagyl) Allergy Mild Unknown Verified 02/10/25 11:51 pentazocine (From Talwin) Allergy Mild Unknown Verified 02/10/25 11:51 silver nitrate Allergy Mild Unknown Verified 02/10/25 11:51 adhesive Allergy Unknown Unknown Verified 02/10/25 11:51 castor oil Allergy Unknown Unknown Verified 02/10/25 11:51 coconut Allergy Unknown Other Verified 02/10/25 11:51 ergot alkaloids Allergy Unknown Unknown Verified 02/10/25 11:51 erythromycin base Allergy Unknown Unknown Verified 02/10/25 11:51 mustard Allergy Unknown Other Verified 02/10/25 11:51 neomycin Allergy Unknown Unknown Verified 02/10/25 11:51 nitrofurantoin Allergy Unknown Unknown Verified 02/10/25 11:51 nystatin Allergy Unknown Unknown Verified 02/10/25 11:51 oxcarbazepine Allergy Unknown Hives / Verified 02/10/25 11:51 Red Face Penicillins Allergy Unknown Unknown Verified 02/10/25 11:51 polymyxin B Allergy Unknown polymycin Verified 02/10/25 11:51 eye drops spinach Allergy Unknown Other Verified 02/10/25 11:51 bacitracin Allergy Unknown Verified 02/10/25 11:51 nalbuphine (From Nubain) Allergy Unknown Verified 02/10/25 11:51 Review of Systems Review of Systems: All systems reviewed & are unremarkable except as noted in HPI and below Constitutional: Constitutional: Denies chills, Denies fatigue, Denies fever(s), Denies headache(s), Denies malaise and Denies weakness Eyes: Eyes: Denies blurry vision, Denies itchy eyes and Denies loss of vision ENT: Denies otalgia, Denies headache(s), Reports nasal congestion, Denies sinus pain and Denies sore throat Cardiovascular: Cardiovascular: Denies chest pain, Denies irregular heart rhythm and Denies dyspnea Respiratory: Respiratory: Reports cough and Denies dyspnea Gastrointestinal: Gastrointestinal: Denies abdominal pain, Denies diarrhea, Denies nausea and Denies vomiting Musculoskeletal: Musculoskeletal: Denies back pain, Denies myalgias and Denies arthralgias Integumentary/Breasts: Skin/Breast: Denies pruritus and Denies rash Neurologic: Denies headache(s), Denies loss of vision and Denies weakness Psychiatric: Psychiatric: Reports no additional psychiatric complaints Endocrine: Endocrine: Denies fatigue Allergic/Immunologic: Allergic/Immunologic: Denies itchy eyes PMFSH Past Medical History Medical History (Updated 02/10/25 @ 13:14 by Stephanie Page, CLINICAL ASSESSMENT MANAGER) BMI 40.0-44.9, adult Hypokalemia Anxiety Chronic bronchitis with acute exacerbation Hypothyroidism Multiple sclerosis High cholesterol Hypokalemia Asthma Hypertension Surgical History Surgical History H/O arthroscopy of shoulder H/O nasal septoplasty History of hysterectomy H/O breast biopsy History of endoscopic sinus surgery H/O colonoscopy History of appendectomy H/O bilateral mastectomy Family History Family History Mother Family history of lung cancer Family history of malignant neoplasm of breast in first degree relative Father Family history of lung cancer Family history of migraine headaches Other Diabetes mellitus Family history of heart disease in male family member before age 55 Family history of kidney disease Social History Social History (Updated 01/06/25 @ 10:20 by RIGOBERTO Nguyen) Smoking packs per day: 2 Smoking cigarettes per day: 40.0 Years smoked: 20 Smoking pack-years: 40.00 Smoking status: Former smoker Second hand tobacco smoke exposure: No Smoking end date: 11/30/90 Alcohol intake: former Substance use: never Substance use type: does not use Do You Feel Safe in your Home?: Yes Lack of Transportation: No Lack of Food: Never True Current Housing: I Have Housing Concerned About Future Housing: No Difficulty Paying Gas/Electric Bills: No Difficulty Paying for Meds: No Currently Unemployed: YES Education: Bachelor's Degree Difficulty w/ Childcare or Family Care: No Living arrangements: with family 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 There is no relevant family history pertinent to the presenting complaint. Exam Const: General: cooperative, healthy appearing, comfortable, no acute distress and well nourished Nutritional Appearance: well nourished Orientation/consciousness: patient oriented x3 Limitations: no limitations HENMT: Head: normal to inspection, normocephalic and atraumatic Ears: hearing grossly normal bilaterally, external ears normal, TM's normal bilaterally, EAC's normal and no periauricular adenopathy Face/Nose/Sinus: Normal external nose present, Abnormal mucous membranes and turbinates present erythematous bilateral and diffuse, normal facial exam, sinuses nontender and face symmetric Face and sinus: normal facial exam, sinuses nontender and face symmetric Mouth: Yes Normal oral and palatal mucosa present, Yes lip normal, Yes tongue normal, Yes Normal salivary glands and ducts present, Yes oropharynx normal and Yes moist mucous membranes Teeth and gingiva: dentition normal Throat: posterior oropharynx normal, tonsils normal and uvula midline Eyes: General: appearance normal, both eyes and all related structures Alignment and Position: alignment normal and position normal Periorbital: periorbital findings normal Eyelids: eyelids normal Pupils: Equal, round and reactive pupils present Neck: Neck: normal visual inspection, full ROM, no lymphadenopathy and supple Chest: Chest palpation & inspection: normal inspection of the chest and normal palpation of entire chest wall Resp: Effort & Inspection: normal respiratory effort and able to speak in complete sentences Auscultation: clear to auscultation bilaterally, no crackles, no rales, no rhonchi and no wheezes Cardio: Rate: regular rate Rhythm: regular rhythm Heart sounds: S1 normal heart sound present and S2 normal heart sound present GI: Inspection: normal to inspection Skin: General skin exam: normal color and no rashes or lesions noted Neuro: General: patient oriented x3 and moves all extremities Cranial nerves: Yes Equal, round and reactive pupils present Speech: normal speech Gait exam (Neuro): Normal gait present Extrem: General: normal to inspection, full ROM and no edema Psych: Appearance: grossly normal and well kempt Mental Status: mental status grossly normal Speech and movement: Normal speech and movement present Affect: normal affect Attitude: cooperative Thought process: Normal thought process present Course Course Emergency Course: Discharge instructions reviewed with patient, as well as provided in writing per nursing staff. The instructions also include specific and strict return/GO TO THE ER as well as f/u information. All questions have been answered, and the patient deny any further questions with discharge and discharge plan. Portions of this record may have been created with voice recognition software Level of Care: Express Care Visit Vital Signs Vital signs: Vital Signs Temperature 36.6 C 02/10/25 11:49 Pulse Rate 95 02/10/25 11:49 Respiratory Rate 18 02/10/25 11:49 Blood Pressure 98/86 L 02/10/25 11:49 Pulse Oximetry 96 02/10/25 11:49 Temperature 36.6 C 02/10/25 11:49 Pulse Rate 95 02/10/25 11:49 Respiratory Rate 18 02/10/25 11:49 Blood Pressure 98/86 L 02/10/25 11:49 Pulse Oximetry 96 02/10/25 11:49 Reviewed MDM - URI/Sore Throat MDM Narrative Medical decision making narrative: Spent a significant amount of time with patient going over history and her frequent use of antibiotics and steroids. Patient states she has not been physically seeing her PCP be his just been calling in prescriptions for her. Discussed UA results with trace leuks and patient states if she is not treated for UTI it will worsen. Patient states the only thing that works for her is Bactrim. Informed patient she cannot take potassium with Bactrim. Patient then refuses Bactrim antibiotic and is demanding Cipro. Discussed Cipro does not cover for upper respiratory infections. Patient was given Tessalon Perles to help with cough. Patient was given referral for pulmonology stating she has not seen cut off worker in over 2 years. Pt well hydrated appearing, in no respiratory distress but does have frequent coughing fits, hemodynamically stable. Recommend supportive care. The patient is stable at time of discharge the clinical impression was discussed and the patient was given the opportunity to ask questions, which were addressed as completely as possible given the information available at present. Anticipatory guidance and return to care precautions were discussed and the importance of primary care follow-up was stressed and encouraged. The patient voiced understanding of the plan, indications to return, and the need for follow-up. Differential diagnosis considered: Bronchitis, Martinez virus, strep pharyngitis, allergic rhinitis, upper respiratory tract infection, sinusitis, rhinosinusitis, nasopharyngitis. viral pharyngitis, otitis media, otitis externa, otitis effusion, foreign body, cerumen impaction, viral syndrome, and influenza.? Exam findings show no acute concerns or changes; patient is non-toxic appearing and is in no distress.? Patient is appropriate for outpatient treatment and follow-up.? Medical Records Attestation: I reviewed the patient's medical records. Lab Data Attestation: I reviewed the patient's lab results. Labs: Lab Results 02/10/25 Range/Units 12:42 POC Urine Color Light/pale POC Urine Clarity Cloudy POC Urine pH 7.0 POC Ur Specif Hospers 1.020 POC Urine Protein Negative (Negative) POC Ur Glucose (UA) Negative (Negative) POC Urine Ketones Negative (Negative) POC Urine Blood Trace (Negative) POC Urine Nitrite Negative (Negative) POC Urine Bilirubin Negative (Negative) POC Urine Urobilinogen 0.2 POC U Leukocyte Esteras 1+ (Negative) Imaging Data Radiologist's impression: EXAMINATION: XR chest 2V DATE: 02/10/2025 12:32 INDICATION: Cough. Asthma exacerbation. TECHNIQUE: Frontal and lateral views of the chest were obtained. COMPARISON: Chest 2 views 02/01/2025, chest CT 10/16/2023 FINDINGS: There is mild atelectasis in the mid and lower lung zones. No pleural effusion or pneumothorax. The heart size is normal. IMPRESSION: 1. Mild atelectasis in the mid and lower lung zones. Discharge Plan Discharge Clinical Impression: Acute exacerbation of chronic bronchitis, Acute UTI Patient Disposition: Home, Self-Care Condition: Stable Instructions: Acute Bronchitis (ED), Urinary Tract Infection in Older Adults (ED) Additional Instructions: Take antibiotic as prescribed. Do not take donepezil at the same time as antibiotic. Use Tessalon Perles as needed for cough Chest x-ray showed no signs of pneumonia Other symptomatic treatments include: -Alternate Tylenol and Motrin per package directions for fever or pain: Tylenol 650-1000mg by mouth every 4-6 hours. Do not exceed 4000mg in 24 hours. Advil (Ibuprofen) 600 mg by mouth every 6 hours. Do not exceed 2400mg in 24 hours. 8 AM: Tylenol 11 AM: Ibuprofen 2 PM: Tylenol 5 PM: Ibuprofen 8 PM: Tylenol 11 PM: Ibuprofen 2 AM: Tylenol 5 AM: Ibuprofen -Antihistamine medication such as Benadryl at night and Zyrtec/Claritin/Narda during the day can help improve symptoms. -Use Flonase twice a day for 5 days then daily to help reduce the inflammation and dry up your sinuses. -You can also use Sudafed or Mucinex. Be sure to drink plenty of water with these medications at least 8 ounces with every dose and it is important to drink 8 to 10 glasses of water per day. Water is a natural decongestant -Eat and drink things that are easy to swallow, like tea or soup, or popsicles. -Oral rinses such as: Salt water gargles and/or may use topical anesthetic (eg. Chloraseptic spray) or lozenges to relieve dryness or throat pain). -Frequent hand washing or hand elementary school band director is one of the best ways to prevent spread of infection. -Using a vaporizer or humidifier at night will also help thin secretions and help with coughing up phlegm. Call your Primary Care Doctor and make a follow-up appointment in 3 days. If your cough worsens, you develop a fever greater than 103, you develop shaking chills, a fast heartbeat, trouble breathing and/or feel you are are breathing much faster than usual, call your Primary Care Doctor or go to the ER. Patient Language: Kiswahili Prescriptions: New ciprofloxacin HCl 500 mg tablet 500 mg PO Q12H 7 Days Qty: 14 0RF benzonatate 100 mg capsule 100 mg PO BID PRN (Reason: cough) Qty: 14 0RF No Action Stiolto Respimat 2.5-2.5 mcg/actuation mist 1 puff INHALATION BID levothyroxine [Levo-T] 175 mcg tablet 175 mcg PO DAILY albuterol sulfate [Ventolin HFA] 90 mcg/actuation HFA aerosol inhaler 2 inh inhalation DAILY fluticasone propionate [Flonase Allergy Relief] 50 mcg/actuation spray,suspension 1 spray intranasal DAILY Rx Instructions: administer into each nostril omega 8-qje-jfr-fish oil [Fish Oil] 1,000 mg (120 mg-180 mg) capsule 3 cap PO DAILY (DME) Peak Air Peak Flow Meter Device See Rx Instructions .Route Qty: 1 1RF Rx Instructions: As directed exemestane 25 mg tablet 25 mg PO DAILY Rx Instructions: must administer after a meal mupirocin 2 % ointment 1 applic topical BID Qty: 22 2RF Rx Instructions: apply intranasal on the left side of the nose b.i.d. p.r.n. dryness or bleeding baclofen 10 mg tablet 30 mg PO QID furosemide 20 mg tablet 20 mg PO BID Qty: 180 3RF Rx Instructions: This is in addition to her her furosemide 40mg bid benzonatate 200 mg capsule 200 mg PO BID PRN (Reason: cough) Qty: 30 0RF acetaminophen [Tylenol Extra Strength] 500 mg Tablet 500 mg PO Q6H PRN (Reason: Pain) fluoride (sodium) [PreviDent] 1.1 % Gel 1 applic DENTAL HS Amvona 1.5 billion cell Capsule 1 cap PO DAILY [employer] NasaFlo Packet With Rinse Device 1 ea TID glatiramer [Copaxone] 20 mg/mL syringe 20 mg SUB-Q DAILY aspirin [Adult Low Dose Aspirin] 81 mg tablet,delayed release (DR/EC) 81 mg PO DAILY multivitamin [Multiple Vitamins] Tablet 1 tablet PO DAILY zinc 50 mg tablet 50 mg PO DAILY biotin 5 mg capsule 5 mg PO DAILY mecobalamin (vitamin B12) 5,000 mcg tablet,disintegrating 5,000 mcg PO .QD Emgality Pen 120 mg/mL pen injector 120 mg SUB-Q MONTHLY glucosamine-chondroitin 500-400 mg capsule 1 cap PO TID Rx Instructions: give with meal/snack simethicone [Gas-X Extra Strength] 125 mg tablet,chewable 250 mg PO TID calcium carbonate [Tums] 200 mg calcium (500 mg) tablet,chewable 400 mg PO TID PRN (Reason: Abdominal Pain) cranberry fruit 400 mg capsule 400 mg PO TID Rx Instructions: 2 cap TID desipramine 10 mg tablet 15 mg PO QPM Rx Instructions: 1.5 tables sublingual for esophageal spasms hydrocortisone [Proctosol HC] 2.5 % cream with perineal applicator 1 applic NE DAILY PRN (Reason: hemorrhoids) Qty: 90 1RF hyoscyamine sulfate 0.125 mg tablet, sublingual 0.125 mg PO QID PRN (Reason: Pain) Qty: 360 0RF Rx Instructions: Needs [place] generic cholecalciferol (vitamin D3) [Vitamin D3] 25 mcg (1,000 unit) capsule 25 mcg PO DAILY Qty: 100 1RF sumatriptan succinate 6 mg/0.5 mL pen injector See Rx Instructions .ROUTE .COMPLEX Qty: 18 3RF Dose Instruction: INJECT 6 MG (0.5 ML) UNDER THE SKIN ONCE, MAY REPEAT DOSE ONCE IN 1 HOUR IF NOT RELIEVED Rx Instructions: INJECT 6 MG (0.5 ML) UNDER THE SKIN ONCE, MAY REPEAT DOSE ONCE IN 1 HOUR IF NOT RELIEVED nitroglycerin 0.4 mg tablet, sublingual 0.4 mg SUBLINGUAL Q5M PRN (Reason: chest pain) Qty: 3 0RF Rx Instructions: until response; do not exceed 3 doses per episode amantadine HCl 100 mg capsule See Rx Instructions .ROUTE .COMPLEX Qty: 180 3RF Dose Instruction: TAKE 1 CAPSULE BY MOUTH TWICE DAILY Rx Instructions: TAKE 1 CAPSULE BY MOUTH TWICE DAILY montelukast [Singulair] 10 mg tablet 10 mg PO DAILY Qty: 100 2RF pravastatin 40 mg tablet 40 mg PO DAILY Qty: 100 2RF donepezil 10 mg tablet 10 mg PO DAILY Qty: 90 1RF furosemide 40 mg tablet See Rx Instructions .ROUTE .COMPLEX Qty: 180 3RF Dose Instruction: TAKE 1 TABLET BY MOUTH TWICE DAILY Rx Instructions: TAKE 1 TABLET BY MOUTH TWICE DAILY ergocalciferol (vitamin D2) [Vitamin D2] 1,250 mcg (50,000 unit) capsule See Rx Instructions .ROUTE .COMPLEX Qty: 13 3RF Dose Instruction: TAKE 1 CAPSULE BY MOUTH WEEKLY ON FRIDAYS Rx Instructions: TAKE 1 CAPSULE BY MOUTH WEEKLY ON FRIDAYS diltiazem HCl 120 mg capsule,extended release 24hr 120 mg PO DAILY Qty: 100 2RF tamsulosin 0.4 mg capsule See Rx Instructions .ROUTE .COMPLEX Qty: 90 3RF Dose Instruction: TAKE 1 CAPSULE BY MOUTH DAILY Rx Instructions: TAKE 1 CAPSULE BY MOUTH DAILY phenazopyridine [Pyridium] 200 mg tablet 200 mg PO TID Qty: 9 0RF Rx Instructions: Take after meals omeprazole 40 mg capsule,delayed release(DR/EC) See Rx Instructions .ROUTE .COMPLEX Qty: 60 11RF Dose Instruction: TAKE 1 CAPSULE BY MOUTH TWICE DAILY Rx Instructions: TAKE 1 CAPSULE BY MOUTH TWICE DAILY potassium chloride 20 mEq/15 mL liquid See Rx Instructions .ROUTE .COMPLEX Qty: 85860 3RF Dose Instruction: DILUTE 45 ML (60 MEQ) IN AT LEAST 4 OUNCES OF WATER OR JUICE AND DRINK BY MOUTH 5 TIMES DAILY Rx Instructions: DILUTE 45 ML (60 MEQ) IN AT LEAST 4 OUNCES OF WATER OR JUICE AND DRINK BY MOUTH 7 TIMES DAILY prednisone 10 mg tablet 10 mg PO DIRECTED Qty: 30 0RF Rx Instructions: Take 4 tablets daily for 3 days, 3 tablets daily for 3 days, 2 tablets daily for 3 days, and 1 tablet daily for 3 days albuterol sulfate 2.5 mg /3 mL (0.083 %) solution for nebulization 2.5 mg INHALATION QID Qty: 180 2RF albuterol sulfate [Ventolin HFA] 90 mcg/actuation HFA aerosol inhaler 2 puff INHALATION QID PRN (Reason: Shortness Of Breath) Qty: 25.5 0RF Follow-up/Referrals: Lobito Gonzalez DO [Primary Care Provider] - 3 Days Amandeep Mcallister MD [Physician] - 3 Days (Pulmonology referral) Time of Disposition: 13:19
[2025-02-10 11:49] VITALS: BP 98/86; PULSE 95; RESP 18; TEMP 36.6; O2SAT 96
[2025-02-10 12:44] LABS: EDUAAPPEAR Cloudy; EDUABILI Negative (Negative); EDUABLOOD Trace (Negative); EDUACOLOR1 Light/Pale; EDUAGLUCOSE Negative (Negative); EDUAKETONE Negative (Negative); EDUALEUKO 1+ (Negative); EDUANITRATE Negative (Negative); EDUAPROTEIN Negative (Negative); EDUAUROBILI 0.2
== END 2025-02-10 13:41 | disposition home or self-care (01) ==
PROVIDERS: Emergency Provider Nurse Practitioner Family; PCP Internal Medicine
DX: J44.1 Chronic obstructive pulmonary disease with (acute) exacerbation (principal); N39.0 Urinary tract infection, site not specified; Z87.891 Personal history of nicotine dependence; E03.9 Hypothyroidism, unspecified; G35 Multiple sclerosis; E78.00 Pure hypercholesterolemia, unspecified; I10 Essential (primary) hypertension; Z90.13 Acquired absence of bilateral breasts and nipples
CPT/HCPCS: 71046; 81003; 87086; 87186; 99213; G0463

== ENCOUNTER 2025-02-15 15:16 | Outpatient (CLI) | payer MEDICARE, SELFPAY ==
--- NOTE | ~2025-02-15 | US_ITS ---
EXAM: RENAL ULTRASOUND HISTORY: hematuria and dysuria COMPARISON: None. Reference is made to a noncontrast enhanced CT examination of the abdomen and pelvi s dated 09/28/2019. FINDINGS: RIGHT KIDNEY: 12.6 x 5.0 x 4.6 cm. No hydronephrosis or bulky renal calculi. Anechoic avascular focus within the upper pole of the right kidney ensuring 13 x 12 x 13 mm. LEFT KIDNEY: 11.6 x 5.7 x 6.7 cm No hydronephrosis or renal calculi. Rounded avascular focus of decreased echogenicity within the lower pole of the left kidney measuring 28 x 30 x 28 mm. This focus has increased in size from previous examination when it measured 19 mm in greatest dimension. BLADDER: Minimally distended, and otherwise unremarkable. IMPRESSION: No hydronephrosis or renal calculi. Findings within the lower pole of the left kidney for which contrast enhanced MRI is recommended with renal mass protocol. Reviewed, dictated and finalized at location A. IMPRESSION: No hydronephrosis or renal calculi. Findings within the lower pole of the left kidney for which contrast enhanced M RI is recommended with renal mass protocol.
== END 2025-02-15 15:17 | disposition home or self-care (01) ==
LOC: MICIMG 15:17
PROVIDERS: PCP Internal Medicine; Visit Provider Internal Medicine Nephrology
DX: R31.9 Hematuria, unspecified (principal); R30.0 Dysuria
CPT/HCPCS: 76775

== ENCOUNTER 2025-03-24 13:46 | Observation (INO) | payer MEDICARE, SELFPAY ==
[2025-03-24] VITALS (9 sets, daily range): BP systolic 123–157; BP diastolic 67–99; PULSE 71–96; RESP 14–22; TEMP 36.3–36.4; O2SAT 96–100; BMI 39.8
--- NOTE | ~2025-03-24 | CT_ITS ---
EXAMINATION: CTA chest PE protocol DATE: 03/24/2025 16:08 INDICATION: Shortness of breath. Recent surgery. TECHNIQUE: Computed tomography (CT) pulmonary angiogram of the chest was performed with 100 mL Omnipa que-350 intravenous contrast. Additional 3D reconstructions utilizing coronal maximum intensity proje ction (MIP) were performed. Automated exposure control and iterative reconstruction technique were em ployed. The dose-length product was 772.93 mGy-cm. COMPARISON: Chest CT dated 10/16/2023 FINDINGS: No pulmonary embolism. Mild emphysema with subtle mosaic attenuation in the lower lungs consistent wi th subsegmental air trapping related to small airway disease. A few small bilateral calcite pulmonary nodules consistent with old granulomatous disease. Scattered mild discoid atelectasis in the bilater al mid and lower lung zones. No pneumonia, pulmonary edema, pleural effusion or pneumothorax. Heart s ize is normal. 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 No pericardial effusion. Thoracic aorta is no rmal in caliber with no dissection. No pathologically enlarged thoracic lymphadenopathy. Mild thoraci c kyphosis with moderate spondylosis. IMPRESSION: 1. No pulmonary embolism or other acute cardiopulmonary disease. 2. Mild emphysema with subsegmental air trapping related to associated small airway disease. Reviewed, dictated and finalized at location A. IMPRESSION: 1. No pulmonary embolism or other acute cardiopulmonary disease. 2. Mild emphysema with subsegmental air trapping related to associated small ai rway disease.
--- OUTSIDE RECORDS SUMMARY | 2025-03-24 13:51 | XMS_ITS | Encounter Summary ---
Author Organization [facility] Healthcare Address [address] [place] [address] Care Team Providers Care Steamfitter Supervisor Name Role Phone Gail Wyatt MD Unavailable [phone] Lobito Gonzalez DO Primary Care Provider [phone] Reason for Referral * Consultation (Routine) - Pending Review Specialty Diagnoses / Procedures Referred By Lore montez Referred To Contact Psychology Diagnoses Multiple sclerosis (HCC) Antony Brennan MD [address] [facility] [address] [place] [address] Phone: tel: fax: James Castro, PhD [address] [facility] [address] [place] [address] Phone: tel: fax: Referral ID Status Reason Start Date Expiration Date Visits Requested Visits Authorized [id number] Pending Review Specialty Services Required 03/21/2025 04/20/2026 1 1 Question Answer Please select the performing region: External Order [171] To provider: JAMES CASTRO [[id number]] # of visits: 1 Encounter Details Date Type Department Care Team (Late st Contact Info) Description 03/13/2025 Telephone [facility] [address] [facility] [address] [place] [id number] Janeth Escoto, KIERA Social History Tobacco Use Types Packs/Day Years [...] on file 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 James Castro * Telephone Encounter - Janeth Escoto RN - 03/20/2025 2:29 PM CDT Call back from [facility] neuropsychology. They did not find any records for this patient. * Telephone Encounter - Janeth Escoto RN - 03/15/2025 3:49 PM CDT Discussed with Angelica. Thinks she had testing completed about 10 years ago at [facility]. Did see notes from Dr. Cuenca 12/18/2015 referencing that patient reports having some neuropsych testing completed by another provider. Mentions asking patient to get a copy to that office, but no notes of this sort in [facility] or in [facility]. Will send fax to [facility] neuropsych office to see if they may have these old records. * Telephone Encounter - Antony Brennan MD - 03/13/2025 8:22 PM CDT Find out where she had previous neuropsychological testing and obtain report. I can then give better guidance if worth repeating. * Telephone Encounter - Janeth Escoto RN - 03/13/2025 4:01 PM CDT Vm from [facility]. Forgot to ask last week about getting her cognitive testing re- done to see where sheis at now. documented in this encounter Plan of Treatment Scheduled Referrals Name Type Priority Associated Diagnoses Order Schedule Ambulatory referral to Neuropsychology Outpatient Referral Routine Multiple sclerosis (HCC) 1 Occurrences starting 03/21/2025 until 03/21/2026 documented as of this encounter Visit Diagnoses Diagnosis Multiple sclerosis (HCC)- Primary Multiple sclerosis documented in this encounter Care Teams Steamfitter Supervisor Relationship Specialty Start Date End Date Lobito Gonzalez DO [address] [address] PCP - General Internal Medicine 03/09/25 Gail Wyatt MD [address] [place] [address] Medical Oncologist/Geoscience Professor Medical Oncology 07/23/22 documented as of this encounter
--- OUTSIDE RECORDS SUMMARY | 2025-03-24 13:51 | XMS_ITS | Encounter Summary ---
Author Organization [facility] Address 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
--- OUTSIDE RECORDS SUMMARY | 2025-03-24 13:51 | XMS_ITS | Encounter Summary ---
Author Organization [facility] Address [address] [place] [address] Phone Care Team Providers Care Professor Of Literature Name Role Phone Rod Buckner Primary Care Provider Gail Wyatt MD Unavailable [phone] Lobito Gonzalez DO Primary Care Provider [phone] Encounter Details Date Type Department Care Team (Late st Contact Info) Description 05/08/2021 Telephone [facility] Oncology [address] [facility] 7th [place] [address] Eileen Garcia Social History Tobacco Use Types Packs/Day Years Used Date Smoking Tobacco: Former Smokeless Tobacco: Former Alcohol Use Standard Drinks/Week Comments No 0 (1 standard drink = 0.6 oz pur e alcohol) PHQ-2 Answer Date Recorded PHQ-2 Score 0 07/22/2019 Comments Unknown Sex and Gender Information Value Date Recorded Sex Assigned at Not on file 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
--- OUTSIDE RECORDS SUMMARY | 2025-03-24 13:51 | XMS_ITS | Encounter Summary ---
Author Organization [employer] Address 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
--- OUTSIDE RECORDS SUMMARY | 2025-03-24 13:51 | XMS_ITS | Encounter Summary ---
Author Organization 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
--- OUTSIDE RECORDS SUMMARY | 2025-03-24 13:51 | XMS_ITS | Encounter Summary ---
Author Organization [employer] [facility] Address [address] [place] [address] Care Team Providers Care Retail Beauty Specialist Name Role Phone Rod Buckner PA-C Primary Care Provide r Encounter Details Date Type Department Care Team (Late st Contact Info) Description 02/26/2000 Outpatient Historical Division of Neurology [address] [address] Armida Mendez MD [address] [facility] [address] [place] [address] Social History Tobacco Use Types Packs/Day Years Used Date Smoking Tobacco: Never Assessed Comments Unknown Sex and Gender Information Value Date Recorded Sex Assigned at Not on file 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
--- OUTSIDE RECORDS SUMMARY | 2025-03-24 13:51 | XMS_ITS | Continuity of Care Document ---
Author Organization [facility] Address [address] [place] [address] [address] [place] [address] Phone Care Team Providers Care Hall Manager Name Role Phone [facility] Unavailable Unavail able Porfirio Piedra Unavailable Unavailable Advance Directives Directive Yes / No Effective Date File Name No Information Encounters Encounter Description Practice Location Reason(s) For Visit Diagnoses Date Provider Providers Copied on Encounter [facility], [id number] [place] [address] [address], [place], [place], [id number], [place] tel:[phone] No Information [facility] [address] [facility], [address], [place], [place], [id number] , [place]. [phone] Referring Provider: Lee New, [address] [place] [address] [address], [place], [address]. tel:[phone] sulting Provider: Porfirio Piedra, [address] [place] [address], [place], [address]. tel:[phone] Family History Family Member Type Diagnosis Age At Onset No Information Payers Payer name Insurance type Covered alliance party ID Authoriza tion(s) No Information Social [...]
--- OUTSIDE RECORDS SUMMARY | 2025-03-24 13:51 | XMS_ITS | Clinical Summary ---
Author Organization [facility] Address [address], [facility] [address] [place] [address] Phone Care Team Providers Care Slot Manager Name Role Phone SitaRod munson Primary Care Provider Allergies Active Allergy Reactions Criticality Noted Date Comments Amphetamine-Dextroamphe tamine Other (see Comments) 02/11/2019 Heart palipations Allyl Isothiocyanate Vomiting,Unknown Low 7 Aspartame Other (see Comments) Medium 06/18/2018 Abdominal pain Other reaction(s): Other Abdominal pain Abdominal pain Bacitracin Unknown 02/11/2019 [place] Oil Unknown 02/11/2019 Cefuroxime Unknown 02/11/2019 Coconut [...] Fluticasone Propionate (FLONASE NA)Indications: each nostril 1 Verner by Nasal route daily. Indications: each nostril [...] 175 mcg by mouth daily. Active Tiotropium [place]-Olodate rol (STIOLTO RESPIMAT IN) take 1 Puff [...] mouth daily. Indications: 5MG Active Probiotic Product (Anvato PO) Take 1 Tab by mouth daily. [...] by mouth daily as needed. Active Pseudoeph-Doxyl zfdfs-PB-IVMG (NYQUIL PO) Take by mouth Daily as [...] Health Maintenance Due Date Last Done Comments Hepatitis C Virus (HCV) Screening 1960 Hepatitis B Immunization (3 of 3 - 19+ 3-dose series) 07/15/1998 03/12/1998, 01/15/1998 Cologuard 2008 Immunochemical Fecal Occult Blood 2008 Zoster Immunization (2 of 3) 11/04/2013 [...] patient's age to complete this topic [place] [place] [address] Care Teams Slot Manager Relationship Specialty Start Date End Date Rod Buckner PAC [address] [facility] [address] [address] PCP - General Physician Service Writer Advisor 02/08/19
--- OUTSIDE RECORDS SUMMARY | 2025-03-24 13:51 | XMS_ITS | Clinical Summary ---
Author Organization [facility] Address [address] [place] [address] Phone Care Team Providers Care Band Saw Runner Name Role Phone Sunil Mayen DO Primary Care Provider [phone] Allergies Active Allergy Reactions Criticality Noted Date Comments Allyl Isothiocyanate Nausea And Vomiting,Unknown Low 02/04/2017 Amphetamine Low 06/12/2015 Other reaction(s): Unknown Amphetamine-Dextroampheta mine Palpitations Medium 01/28/2017 Other reaction(s): Other (see Comments) Heart palipations Armodafinil Unknown High 06/12/2015 Other reaction(s): Neuropathy Aspartame Other (see comments) Medium 06/18/2018 Other reaction(s): Other Abdominal pain Abdominal pain Bacitracin Low 02/11/2019 Other reaction(s): Unknown [place] Oil Nausea And Vomiting Medium 11/10/2011 Other [...] 02/04/2017 Other reaction(s): Nausea And Vomiting Medications cromolyn (INTAL) 20 MG/2ML nebulizer solution 8 Active desipramine (NOPRAMIN) 10 MG tablet TAKE ONE AND ONE-HALF TABLETS AT BEDTIME (DISREGARD PRIOR ORDER OF 10 MG NIGHTLY) 8 Active dilTIAZem CD (CARDIZEM CD) 120 MG 24 hr capsule Take 120 mg by mouth daily Active diphenoxylate- atropine (LOMOTIL) 2.5-0.025 MG per tablet TAKE 2 TABLETS BY MOUTH 4 TIMES DAILY NEEDED FOR DIARRHEA 5 9 Active donepezil (ARICEPT) 10 MG tablet Take 10 mg by mouth Active esomeprazole (NexIUM) [address] capsule Take 40 mg by mouth Active EMGALITY 120 MG/ML solution auto-injector INJECT CONTENTS OF 1 PEN (120 MG) UNDER THE SKIN EVERY 30 DAYS 5 9 Active glatiramer (COPAXONE,GLAT OPA) 20 MG/ML solution prefilled syringe Inject 20 mg under the skin daily 8 Active levothyroxine (SYNTHROID, LEVOTHROID) 175 MCG tablet Take 175 mcg by mouth 1 (one) time each day 1 9 Active methylphenidat e CD (METADATE CD) 20 MG CR capsule 0 9 Active mupirocin (BACTROBAN) 2 % ointment Apply topically Act chelsea pravastatin (PRAVACHOL) 40 MG tablet Take 40 mg by mouth Active raNITIdine (ZANTAC) 150 MG capsule Take 150 mg by mouth 2 (two) times a day 11 9 Active tamsulosin (FLOMAX) 0.4 MG 24 hr capsule Take 0.4 mg by mouth daily Active STIOLTO RESPIMAT 2.5-2.5 MCG/ACT aerosol solution inhaler INL 2 PFS PO Q DAY. RM AFTER U 3 9 Active ergocalciferol (VITAMIN D2) 1.25 MG (31824 UT) capsule 9 Active VIVELLE-DOT 0.1 MG/24HR 0 Active fluticasone (CUTIVATE) 0.005 % ointment 9 Active montelukast (SINGULAIR) 10 MG tablet 0 Active CARAFATE 1 GM/10ML suspension 0 Active SUMAtriptan (IMITRIX) 6 MG/0.5ML injection 9 Active triamcinolone (KENALOG) 0.1 % cream 0 Active amantadine (SYMMETREL) 100 MG capsule 1 Active fluticasone (FLONASE) 50 MCG/ACT nasal spray 1 Active hyoscyamine (LEVSIN) 0.125 MG SL tablet TAKE 1 TABLET EVERY 6 HOURS NEEDED FOR SPASMS 1 Active Spacer/Aero-Ho lding Chambers (OptiChamber Aidee) [facility] See administration instructions 1 Active albuterol (2.5 MG/3ML) 0.083% nebulizer solution Use 1 vial via nebulizer 4 times daily as needed. 0 Active albuterol HFA (Ventolin HFA) 108 (90 Base) MCG/ACT inhaler USE 2 INHALATIONS EVERY 4 TO 6 HOURS NEEDED 1 Active Proctosol HC 2.5 % cream 1 Active nitroglycerin (NITROSTAT) 0.4 MG SL tablet 0.4 mg 2 Active furosemide (LASIX) 40 MG tablet Take 1 tablet (40 mg total) by mouth 2 (two) times a day 180 tablet 3 1 Active baclofen (LIORESAL) 10 MG tablet 1 Active Qvar RediHaler 80 MCG/ACT aerosol INHALE 2 PUFFS BY MOUTH EVERY 12 HOURS WITH THE SPACER 1 Active DULCOLAX 5 MG EC tablet TAKE 2 TABLETS AT NOON THE DAY BEFORE YOUR COLONOSCOPY & 2 AT 1PM THE DAY BEFORE YOUR COLONOSCOPY 2 Active cetirizine (ZyrTEC) 10 MG tablet Take 10 mg by mouth 1 (one) time each day 2 Active polyethylene glycol (GLYCOLAX) 17 GM/SCOOP powder PLEASE SEE ATTACHED FOR DETAILED DIRECTIONS 2 Active predniSONE (DELTASONE) 20 MG tablet Take 20 mg by mouth 2 (two) times a day 2 Active Active Problems Problem Noted Date Diagnosed [...] hypercholesterolemia 09/11/2011 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/10/2011 Edema 09/10/2011 Essential (primary) hypertension 09/10/2011 Heart failure 09/10/2011 Tobacco dependence syndrome 09/10/2011 Obstructive sleep apnea syndrome 10/06/2000 Overview (11/13/2019): Asthma Obstructive sleep apnea hypopnea, severe Immunizations Immunization Administration Dates Next Due H1N1 [...] = 0.6 oz pur e alcohol) Comments Unknown Sex and Gender Information Value Date Recorded Sex Assigned at Not on file Legal Sex Female 10:07 AM MDT Gender Identity Not on file Sexual Orientation Not on file Last Filed Vital Signs Vital Sign Reading Time Taken Comments Blood Pressure 136/72 02/05/2022 10:13 AM MORNING SHOW NEWSCAST PRODUCER Pulse - - Temperature 36.2 C (97.2 F) 02/05/2022 10:13 AM MORNING SHOW NEWSCAST PRODUCER Respiratory Rate 18 02/05/2022 10:13 AM MORNING SHOW NEWSCAST PRODUCER Oxygen Saturation - - Inhaled Oxygen Concentration - - Weight 113 kg (249 lb) 02/05/2022 10:13 AM MORNING SHOW NEWSCAST PRODUCER Height 160 cm (5' 3 ) 02/05/2022 10:13 AM MORNING SHOW NEWSCAST PRODUCER Body Mass Index 44.11 02/05/2022 10:13 AM MORNING SHOW NEWSCAST PRODUCER Plan of Treatment Health Maintenance Due Date Last Done Comments COVID-19 Vaccine (2023-2 5 season) 2024 09/20/2021, 02/26/2021, 01/29/2021 Influenza Vaccine (Season Ended) 2025 08/20/2020, 10/13/2014, 11/07/2013 Pneumococcal PPSV23/PCV13 65 + Years / Low and Medium Risk Completed 10/25/2019, 09/09/2019, 12/09/2017, Additional history exists Insurance Care Teams Band Saw Runner Relationship Specialty Start Date End Date Sunil Mayen DO [address] [address] PCP - General Internal Medicine 09/27/19
--- OUTSIDE RECORDS SUMMARY | 2025-03-24 13:52 | XMS_ITS | Clinical Summary ---
Author Organization [address] Address [address] [place] [address] Care Team Providers Care Supervisor Lead Refinery Name Role Phone Gail Wyatt MD Unavailable [phone] Lobito Gonzalez DO Primary Care Provider [phone] Allergies Active Allergy Reactions Criticality Noted Date [...] Camphor-Methyl Salicylate-Soap Nausea And Vomiting Low 02/04/2017 [place] Oil Nausea And Vomiting Medium 01/28/2017 Cefuroxime [...] Neomycin Unknown Medium 06/12/2015 Other reaction(s): Unknown Eoptueob-Anfyqskbd-Yhwuhd ine Rash Medium 01/28/2017 Nitrate Analogues Unknown [...] mg SL tablet 0.4 mg. 0 0 016 Active furosemide (LASIX) 20 mg tablet Take 3 tablets (60 mg total) by mouth 2 (two) times a day 018 Active glucosamine-larissa droitin 250-200 mg tablet 3 (three) times a day Active diphenoxylate-at ropine (LOMOTIL) 2.5-0.025 mg per tabletIndication s:diarrhea,PRN Take by mouth every 6 hours. 011 Active multivitamin tabletIndication s:Vitamin Deficiency Prevention daily Active L. gasseri-B. bifidum-B longum 1.5 billion cell capsule Take by mouth Active STIOLTO RESPIMAT 2.5-2.5 mcg/actuation mist Inhale 1 puff 2 (two) times a day 5 018 Active acetaminophen (TYLENOL) 325 mg tablet Take 1 tablet (325 mg total) by mouth as needed Active cholecalciferol (VITAMIN D-3) 50,000 unit capsule Take 1,000 Units by mouth once a week Taking 25mcg Active zinc 50 mg tablet Take by mouth. 017 Active tamsulosin (FLOMAX) 0.4 mg extended release [...] Acti ve cyanocobalamin (Vitamin B-12) 500 mcg tabletIndication s:Prevention of Vitamin B12 Deficiency daily Active mupirocin (BACTROBAN) 2 % nasal ointmentIndicati ons:Methicillin- Resistant S. Aureus Nasal Colonization Apply 0.5 Applications to each nostril as needed Active desipramine (NOPRAMIN) 10 mg tablet Take 1.5 tablets (15 mg total) by mouth nightly Active dilTIAZem CD/XR/XT (CARDIZEM CD,DILACOR XR) 120 mg 24 hr capsule Take 1 capsule (120 mg total) by mouth daily Active sucralfate (CARAFATE) suspension 1 gram/10 mL TAKE 10 ML BY MOUTH 3 TIMES DAILY Active donepeziL (ARICEPT) 10 mg tablet Active esomeprazole DR (NexIUM) 40 mg capsule 2 (two) times a day Active albuterol 2.5 mg /3 mL (0.083 %) nebulizer solutionIndicati ons:Bronchospasm Prevention Use 1 vial via nebulizer 4 times daily as needed. 1080 mL 3 Active hyoscyamine (LEVSIN) 0.125 mg SL tablet DISSOLVE 1 TABLET UNDER THE TONGUE EVERY 6 HOURS NEEDED FOR SPASMS Active potassium chloride (KAYCIEL) solution 20 mEq/15 mL 45 mEq Active SUMAtriptan (IMITREX) 6 mg/0.5 mL injection 05/12/2 021 Active furosemide (LASIX) 40 mg tablet Active ergocalciferol (VITAMIN D) 50,000 unit capsule Active Proctosol HC 2.5 % rectal cream Active ipratropium-albu teroL (DUO-NEB) 0.5-2.5 mg/3 mL nebulizer solution USE 1 VIAL VIA NEBULIZER TWICE DAILY NEEDED Active amantadine (SYMMETREL) 100 mg capsule TAKE 1 CAPSULE TWICE A DAY 180 capsule 3 Active Lactobacillus acidophilus (PROBIOTIC ORAL) Take by mouth Active albuterol HFA (Ventolin HFA) 90 mcg/actuation inhaler Inhale 2 puffs every 6 (six) hours as needed for wheezing 54 g 3 022 Active exemestane (AROMASIN) 25 mg tablet TAKE 1 TABLET BY MOUTH EVERY DAY 30 tablet 11 Active simethicone (GAS-X ORAL) Take by mouth [...] (PEPCID ORAL) Take by mouth Ac tive acetaminophen-co deine (TYLENOL with CODEINE #3) 300-30 mg per [...] tablet (100 mg total) by mouth daily 023 Active fluticasone propionate (FLONASE) 50 mcg/actuation nasal spray Administer 2 sprays into each nostril daily 16 g 11 024 Active galcanezumab-gnl m (Emgality Syringe) 120 mg/mL syringe INJECT 120 MG INTO THE SKIN ONCE EVERY 30 DAYS. 1 mL 5 024 Active Nurtec ODT tablet,disintegr atingIndications :Intractable chronic migraine without aura and with status migrainosus TAKE 1 TABLET (75 MG) BY MOUTH ONSET OF MIGRAINE. DO NOT TAKE MORE THEN 1 TABLET WITHIN 24 HOURS 4 tablet 024 Active fluconazole (DIFLUCAN) 200 mg tablet Take 1 tablet (150 mg total) by mouth as directed Take one tab now. Repeat in 3 days if symptoms persist. 1 tablet 024 Active Emgality Pen 120 mg/mL pen injector INJECT 120MG INTO THE SKIN ONCE EVERY 30 DAYS 1 mL 5 024 Active methylphenidate ER (METADATE ER) 20 mg CR tabletIndication s:Attention-Defi cit Hyperactivity Disorder,Hyperso mnia Take 1 tablet (20 mg total) by mouth every morning 30 tablet 024 Active mupirocin (BACTROBAN) 2 % ointment Apply topically daily 024 Active sulfamethoxazole -trimethoprim (BACTRIM DS) 800-160 mg per tablet Take 1 tablet (160 mg of trimethoprim total) by mouth 2 (two) times a day Active pimecrolimus (ELIDEL) 1 % cream Apply topically 2 (two) times a day 024 Active baclofen (LIORESAL) 10 mg tabletIndication s:Multiple sclerosis (HCC) Take 3 tablets (30 mg total) by mouth 4 (four) times a day 1080 tablet 3 025 Active budesonide (PULMICORT) 0.5 mg/2 mL nebulizer solution INHALE THE CONTENTS OF 1 VIAL VIA NEBULIZER ONCE DAILY. RINSE AND SPIT AFTER USE 180 mL 1 025 Active doxycycline hyclate 100 mg capsule 1 tablet/capsule (100 mg total) 025 Active Trelegy Ellipta 200-62.5-25 mcg inhaler 1 puff daily 025 Active glatiramer (COPAXONE) 20 mg/mL syringe INJECT 20MG SUBCUTANEOUSLY DAILY 30 mL 5 025 Active predniSONE (DELTASONE) 10 mg tablet Take 2 tablets (20 mg) by mouth daily 025 Active glatiramer (COPAXONE) 20 mg/mL syringe INJECT 20MG SUBCUTANEOUSLY DAILY 30 mL 5 024 2024 Discontinued Active Problems Problem Noted Date Diagnosed Date Renal mass, left 03/10/2025 Asthma in adult, mild persistent, uncomplicated 11/08/2024 Chronic bronchitis, unspecified chronic bronchit is type 04/01/2024 meterman (current) use of aromatase inhibitors 08/15/2022 Acquired [...] Tamsulosin Assessment & Plan (12/08/2019 10:[address] DESIGN ENGINEER): Desipramine Tamsulosin Assessment & Plan (05/24/2019 7:33 AM CDT): Desipramine Tamsulosin Thyroid nodule 09/24/2018 Spasm of esophagus 09/24/2018 Noncompliance with CPAP treatment 08/20/2018 Thyromegaly 08/18/2018 Polypharmacy 08/18/2018 Papilloma of left breast 07/23/2018 Migraine without aura and wi thout status migrainosus, not intractable 01/26/2018 Overview (07/30/2022): Last Assessment & Plan: [...] discussed. Assessment & Plan (12/08/2019 10:[address] DESIGN ENGINEER): Continue Emgality monthly Continue Botox Should not [...] depression Assessment & Plan (12/08/2019 10:[address] DESIGN ENGINEER): Continue following with Dr. [place] Asthma 08/24/2015 [...] hypercholesterolemia 09/11/2011 Atherosclerotic heart diseas e of [place] coronary artery without angina pectoris 09/10/2011 Edema 09/10/2011 Essential (primary) hypertension 09/10/2011 Heart failure, unspecified ([facility]) 09/10/2011 Multiple sclerosis ([facility]) 12/07/2008 Assessment & Plan (09/21/2024 10:28 AM [...] did go to [facility] in the past, but left when she [...] that she completed MRI imaging at an [facility] in September 2022 but [...] acetate seems reasonable. She received her 1st [employer] COVID-19 vaccine on January 29, 2021. Baclofen [...] discussed. Assessment & Plan (12/08/2019 10:[address] DESIGN ENGINEER): Discussed the option of oral medication due to lipoatrophy. I told her she should not inject in those areas and that the medication maybe less effective is she is injecting in non-approved sites. Patient declines talk of oral medication options. Continue Copaxone 20mg daily per patient preference Continue exercise Discussed weight loss and nutrition. Will also provide her with Toya Valladares ROOF PAINTER phone number Follow up with Dr. Brennan [...] fatigue Other fatigue Persistent insomnia 08/24/2015 02/05/20 24 Overview (07/30/2022): Persistent disorder of initiating or [...] Encounters Date Type Department Care Team Description 03/13/2025 Telephone [place] [facility] [place] [address] [address] Janeth Escoto RN 03/09/2025 10:00 AM CDT Office Visit [place] [facility] [place] [address] [place] [address] Antony Brennan MD Multiple sclerosis (CMS/HCC) (HCC) (Primary Dx); Neurogenic bladder; Migraine without aura and without status migrainosus, not intractable; Renal mass, left; Malignant neoplasm of upper-outer quadrant of left breast in female, estrogen receptor positive (HCC) from Last 3 Months Immunizations Immunization Administration [...] Multiple sclerosis (HCC) 05/31/2013 MS; Com ments: [facility] 08/13/2015 - Rhinitis Rhinitis; Commen ts: [facility] 08/13/2015 - Hypothyroidism Hypothyroidism; Comments: [facility] 08/13/2015 - Depression Depression Hx Other Medical 04/11/2015 EGD; Comments: [facility] 10/23/2015 - Asthma Asthma Vertigo Vertigo; Comment s: [facility] 10/15/2016 - Hx Other Medical Migraines; Comm ents: [facility] 10/15/2016 - Hypertension Heart disease [...] on file Legal Sex Female 7:[address] ENGINEER Gender Identity Female 06/29/2020 2:02 PM CDT Sexual Orientation Not on file Obstetrics History Last Filed Vital Signs Vital Sign Reading Time Taken Comments Blood Pressure 112/70 03/09/2025 10:16 AM CDT Pulse 88 03/09/2025 10:16 AM CDT Temperature 36.7 C (98 F) 03/09/2025 10:16 AM CDT Respiratory Rate 20 12/08/2024 11:[address] DESIGN ENGINEER Oxygen Saturation 96% 03/09/2025 10: 16 AM CDT Inhaled Oxygen Concentration - - Weight 106.8 kg (235 lb 6.4 oz) 025 10:16 AM CDT Height 160 cm (5' 3 ) 03/09/2025 10:16 AM CDT Body Mass Index 41.7 03/09/2025 10:16 AM CDT Plan of Treatment Health Maintenance [...] 2023-2 5 season) 2024 09/20/2021, 02/26/2021, 01/29/2021 Osteoporosis Screening-Bone Density Scan 05/25/2025 05/25/2023, 05/22/2021 Influenza Vaccine (Season Ended) 2025 09/20/2021, 08/20/2020, 09/07/2019, Additional history exists Hepatitis B Screening Completed 03/12/1998, 998 Hepatitis C Screening Completed 12/22/2018 Pneumococcal vaccine 65+ Completed 022, 10/25/2019, 09/09/2019, Additional history exists Procedures Procedure Name Priority Date/Time Associated Diagnosis Comments DEXA AXIAL SKELETON BONE DENSITY 1 OR MORE SITES Schedule Routine, Read Routine (OP Routine) 05/25/2023 10:54 AM CDT Malignant neoplasm of upper-outer quadrant of left breast in female, estrogen receptor positive (HCC) meterman (current) use of aromatase inhibitors HEPATITIS PANEL, ACUTE Routine 12/22/2018 1:[address] DESIGN ENGINEER from Last 3 Months or Most Recently Relevant to Health Maintenance Results * Dexa Axial Skeleton Bone Density 1 or 2 Site (05/25/2023 10:54 AM CDT) Anatomical Region Laterality Modality Body N/A Radiographic Ynes ging Narrative 05/27/2023 3:40 PM CDT Patient Name: Eugenia Pinzon Date of : 1960 Date of scan: 05/25/2023 Bone mineral density was performed on a [employer] Discovery Densitometer. Based on machine cross-calibration and [...] mineral density scan were prepared by Dayanna Pavon)(Mikhail)(BD) CBDT who is accredited by the International Society of Clinical Densitometry. The overall patient assessment and scan interpretation were performed by Anibal Blank MD who is certified by the International Society of Clinical Densitometry. [id number] Gail Wyatt MD IMG DXA PROCEDURES F inal Result * Hepatitis panel, acute (12/22/2018 1:[address] DESIGN ENGINEER) Hep A IgM NON-REACTIVE NON-REAC TIVE [facility] [place] Comment [facility] [place] Comment: WE RECEIVED YOUR HANDWRITTEN TEST ORDER AND PERFORMED AN ACUTE HEPATITIS PANEL. IF THIS IS NOT WHAT YOU INTENDED TO ORDER, PLEASE CONTACT YOUR LOCAL OUT OF SCHOOL HOURS CARE WORKER IMMEDIATELY SO THAT WE CAN ADJUST OUR [...] INTENDED TO ORDER, PLEASE CONTACT YOUR LOCAL OUT OF SCHOOL HOURS CARE WORKER IMMEDIATELY SO THAT WE CAN ADJUST OUR BILLING APPROPRIATELY. YOU MAY ALSO INQUIRE ABOUT ALTERNATIVE OR ADDITIONAL TESTING. Hep B core IgM NON-REACTIVE NON-REAC TIVE [facility] [place] [facility] [place]: WE RECEIVED YOUR HANDWRITTEN TEST ORDER AND PERFORMED AN ACUTE HEPATITIS PANEL. IF THIS IS NOT WHAT YOU INTENDED TO ORDER, PLEASE CONTACT YOUR LOCAL OUT OF SCHOOL HOURS CARE WORKER IMMEDIATELY SO THAT WE CAN ADJUST OUR [...] INTENDED TO ORDER, PLEASE CONTACT YOUR LOCAL OUT OF SCHOOL HOURS CARE WORKER IMMEDIATELY SO THAT WE CAN ADJUST OUR BILLING APPROPRIATELY. YOU MAY ALSO INQUIRE ABOUT ALTERNATIVE OR ADDITIONAL TESTING. 12/22/2018 1:[address] DESIGN ENGINEER 12/22/2018 2:[address] DESIGN ENGINEER Narrative Resulting Agency Comment Performing Organization Information: Site ID: [id number] Name: [facility] Address: [address] [address] Director: Amandeep Suárez D.O., MPH us Antony Brennan MD LAB MICROBIOLOGY - GENERAL OR DERABLES Final Result Performing Organization Address City/State/ZIP Co al Phone Number [facility] [place] from Last 3 Months or Most Recently Relevant to Health Maintenance Insurance MEDICARE ADVANTAGE [place] [id number] Care Teams Supervisor Lead Refinery Relationship Specialty Start Date End Date Lobito Gonzalez DO [address] [place] [address] PCP - General Internal Medicine 03/09/25 Gail Wyatt MD [address] [place] [address] Medical Oncologist/Infection Control Practitioner Medical Oncology 07/23/22
--- OUTSIDE RECORDS SUMMARY | 2025-03-24 13:52 | XMS_ITS | Data Portability ---
Author Organization [place] [facility],, Amy hensley Address [address] [place] [address] Assessment No assessment recorded. Plan of Treatment Reminders Order Date Submit Date Provider Last Modified By Organization Details Last Modified Time Details Appointments None recorded. Lab CBC w/ auto diff 2023 024 [employer] [facility], [address], [place], [address], 4 16:48:25 ige, total, serum 2023 024 [employer] [facility], [address], [place], [address], 4 16:48:25 Referral None recorded. Procedures None recorded. Surgeries None recorded. Imaging None recorded. Medication Orders Trelegy Ellipta 200 mcg-62.5 mcg-25 mcg powder for inhalation 2023 024 [facility] #[id number], [address], [place], [address], 4 16:01:56 Patient TargetsNo targets recorded. Patient Instructions Encounter Date Encounter Id Patient Instructions Last Modified By Organization Details Last Modified Time 04/19/2024 [id number] spirometry testing* Not available 04/19/2024 16:46:55 asthma control test* Not available 04/19/2024 15:51:36 Reason for Referral None Reported. Results Created Date Observation Date Name Description Value Unit Range Abnormal Flag Note LastModifiedBy Organization Detail LastModifiedTime 04/19/20 24 04/19/2024 rajesh metry testi ng* fev1 57 Not Available [facility] [address], [place], [address], 04/19/2024 15:28:32 04/19/20 24 04/19/2024 rajesh metry testi ng* fvc 71 Not Available [facility] [address], [place], [address], 04/19/2024 15:28:32 04/19/20 24 04/19/2024 rajesh metry testi ng* % reversibilit y Not Available [facility] [address], [place], [address], 04/19/2024 15:28:32 04/19/20 24 04/19/2024 asthm a contr ol test* Asthma 12 Not Available [facility] [address], [place], [address], 04/19/2024 15:28:34 04/19/20 rajesh metry testi ng* No observ ation record ed. Not Available 2023 16:46:33 Result Notes None recorded. Problems Name Problem SNOMED Code Status Onset Date Resolution Date Notes Provider Name and Address Organization Details Recorded Time Multiple sclerosis 61202301 Active 2023 Armida Waterman MD [address], [place], [address], [place] [facility], 4 15:30:18 Chronic sinusitis 39026494 Active 2023 ANDRES Corey [address], [place], [address], [place] [facility], 11:16:40 Osteoarthritis of multiple joints 917023197 Active 2023 ANDRES Corey [address], [place], [address], [place] [facility], 11:16:47 Osteopenia 992825559 Active [address], [place], [address], [place] [facility], 11:16:51 Gastroesophage al reflux disease 953971383 Active [address], [place], [address], [place] [facility], 11:16:44 Barnard's esophagus 073999775 Active [address], [place], [address], [place] [facility], 11:16:38 Migraine 59779528 Active [address], [place], [address], [place] [facility], 11:16:45 Diastolic dysfunction 5196748 Active [address], [place], [address], [place] [facility], 11:16:42 Severe persistent asthma 152015881 Active [address], [place], [address], [place] [facility], 11:16:52 Problem Notes None recorded. Procedures Surgical History Date Name Laterality Status Provider Name and Address Organization Details Recorded Time excision of bilateral breasts completed MD [address], [place], [address], [place] [facility], 04/19/2024 15:32:24 functional endoscopic sinus surgery completed MD [address], [place], [address], [place] [facility], 04/19/2024 15:32:29 Imaging Results Imaging Date Name Status [facility] Details LastModified Time 04/19/2024 spirometry testing* completed Information not available 04/19/2024 16:46:33 Procedure Notes None recorded. Medical Equipment None Reported. Allergies Allergen ID Allergen Name Allergen Category Reaction Reaction Severity Criticality Documentation Date Start Date Code Code System Note Provider Name and Address Organization Details Recorded Time 94959 Product containin g penicilli n (product) medicatio n Not available Not available Not available 04/19/2024 50545 [address], [place], [address], [place] [facility], 4 15:58:50 00808 Ceftin medicatio n Not available Not available Not available 04/19/2024 19029 6 RxNorm MD [address], [place], [address], [place] [facility], 4 15:59:02 78284 nitrofura ntoin medicatio n Not available Not available Not available 04/19/[address], [place], [address], [place] [facility], 4 15:59:33 12259 metronida zole medicatio n Not available Not available Not available 04/19/[address], [place], [address], [place] [facility], 4 15:59:39 Medications Name Sig Start Date Stop Date Status Note LastModified by Organization Details LastModified Time furosemide 40 mg tablet active Not Available Not Available Not Available fluconazole 100 mg tablet TAKE 1 TABLET BY MOUTH EVERY DAY 04/19 completed Not Available Not Available Not Available prednisone 10 mg tablet PLEASE SEE ATTACHED FOR DETAILED DIRECTION S active Not Available Not Available No t Available doxycycline hyclate 100 mg capsule TAKE 1 CAPSULE BY MOUTH EVERY DAY X5 DAYS *START 10/09* 04/19 completed Not Available Not Available Not Available albuterol sulfate 2.5 mg/3 mL (0.083 %) solution for nebulizatio n USE 1 VIAL VIA NEBULIZER EVERY 4 HOURS NEEDED active Not Available Not Available No t Available azithromyci n 250 mg tablet TAKE 2 TABLETS BY MOUTH TODAY, THEN TAKE 1 TABLET DAILY FOR 4 DAYS DIRECTED 04/19 completed Not Available Not Available Not Available pravastatin 40 mg tablet active Not Available Not Available Not Available fluconazole 150 mg tablet TAKE 1 TABLET BY MOUTH EVERY 4 DAYS 04/19 completed Not Available Not Available Not Available benzonatate 200 mg capsule TAKE 1 CAPSULE BY MOUTH THREE TIMES A DAY NEEDED FOR COUGH 04/19 completed Not Available Not Available Not Available methylpheni date 10 mg tablet TAKE 1 TABLET BY MOUTH TWICE A DAY active Not Available Not Available No t Available methylpheni date 20 mg tablet TAKE 1 TABLET BY MOUTH EVERY DAY IN THE MORNING 04/19 completed Not Available Not Available Not Available sucralfate 100 mg/mL oral suspension active Not Available Not Available N ot Available fluconazole 200 mg tablet TAKE 1 TABLET BY MOUTH NOW THEN REPEAT IN 3 DAYS IF SYMPTOMS CONTINUE active Not Available Not Available No t Available donepezil 10 mg tablet active Not Available Not Available Not Available betamethaso ne, augmented 0.05 % topical cream RUB IN WELL TWICE A DAY TO RED AREAS UNTIL CLEAR 04/19 completed Not Available Not Available Not Available prednisone 5 mg tablet TAKE 8 TABLETS BY MOUTH TODAY AND DECREASE DOSE BY 1 TABLET EVERYDAY UNTIL GONE 04/19 completed Not Available Not Available Not Available clobetasol 0.05 % topical cream APPLY TO RASH TWICE DAILY UNTIL RESOLVED, THEN TWICE WEEKLY X1 MONTH (NO BANDAIDS) 04/19 completed Not Available Not Available Not Available sulfamethox azole 800 mg-trimetho prim 160 mg tablet active Not Available Not Available Not Available omeprazole 40 mg capsule,del ayed release 04/19 completed Not Available Not Available Not Available doxycycline monohydrate 100 mg tablet TAKE 1 TABLET BY MOUTH TWICE A DAY 04/19 completed Not Available Not Available Not Available amantadine HCl 100 mg capsule active Not Available Not Available Not Available potassium chloride 20 mEq/15 mL oral liquid DILUTE 45 ML (60 MEQ) IN AT LEAST 4 OUNCES OF WATER OR JUICE AND DRINK BY MOUTH 5 TIMES DIALY active Not Available Not Available No t Available exemestane 25 mg tablet active Not Available Not Available Not Available tamsulosin 0.4 mg capsule active Not Available Not Available Not Available baclofen 10 mg tablet active Not Available Not Available No t Available doxycycline monohydrate 100 mg capsule TAKE 1 CAPSULE BY MOUTH TWICE A DAY X7 DAYS active Not Available Not Available No t Available Cartia XT 120 mg capsule,ext ended release TAKE 1 CAPSULE BY MOUTH EVERY DAY active Not Available Not Available No t Available acyclovir 5 % topical ointment APPLY 1 APPLICATI ON ONTO THE AFFECTED AREA(S) 6 TIMES DAILY X7 DAYS 04/19 completed Not Available Not Available Not Available esomeprazol e magnesium 40 mg capsule,del ayed release TAKE 1 CAPSULE BY MOUTH TWICE A DAY BEFORE BREAKFAST AND SUPPER active Not Available Not Available No t Available clotrimazol e-betametha sone 1 %-0.05 % topical cream APPLY TOPICALLY TWICE A DAY FOR 2 WEEKS 04/19 completed Not Available Not Available Not Available hyoscyamine 0.125 mg sublingual tablet TAKE 1 TABLET BY MOUTH 4 TIMES A DAY NEEDED FOR PAIN active Not Available Not Available No t Available methylpheni date ER 20 mg tablet,exte nded release TAKE 1 TABLET BY MOUTH EVERY DAY IN THE MORNING active Not Available Not Available No t Available nitroglycer in 0.[address] 1 TABLET UNDER TONGUE EVERY 5 MINS, UP TO 3 DOSES NEEDED FOR CHEST PAIN active Not Available Not Available No t Available budesonide 0.5 mg/2 mL suspension for nebulizatio n INHALE THE CONTENTS OF 1 VIAL VIA NEBULIZER ONCE DAILY. RINSE AND SPIT AFTER USE active Not Available Not Available No t Available montelukast 10 mg tablet active Not Available Not Available Not Available bisacodyl 5 mg tablet,trixie yed release TAKE ALL 4 TABLETS ORALLY AT NOON THE DAY BEFORE YOUR COLONOSCO PY 04/19 completed Not Available Not Available Not Available polyethylen e glycol 3350 17 gram/dose oral powder PLEASE SEE ATTACHED FOR DETAILED DIRECTION S 04/19 completed Not Available Not Available Not Available methylpredn isolone 4 mg tablets in a dose pack TAKE 6 TABLETS ON DAY 1 DIRECTED ON PACKAGE AND DECREASE BY 1 TAB EACH DAY FOR A TOTAL OF 6 DAYS 04/19 completed Not Available Not Available Not Available Vitamin D2 1,250 mcg (50,000 unit) capsule active Not Available Not Available Not Available ketoconazol e 2 % topical cream RUB IN WELL TWICE A DAY TO RED AREAS 04/19 completed Not Available Not Available Not Available losartan 100 mg tablet TAKE 1 TABLET BY MOUTH EVERY DAY active Not Available Not Available No t Available fluticasone propionate 50 mcg/actuati on nasal spray,suspe nsion active Not Available Not Available Not Available doxycycline hyclate 100 mg tablet TAKE 1 TABLET BY MOUTH TWICE A DAY FOR 7 DAYS active Not Available Not Available No t Available diazepam 5 mg tablet TAKE 1 TABLET BY MOUTH TWICE A DAY NEEDED FOR ANXIETY active Not Available Not Available No t Available desipramine 10 mg tablet TAKE 1 & 1/2 TABLETS BY MOUTH AT BEDTIME active Not Available Not Available No t Available Ventolin HFA 90 mcg/actuati on aerosol inhaler active Not Available Not Available Not Available sumatriptan 6 mg/0.5 mL subcutaneou s pen injector INJECT 6 MG UNDER THE SKIN ONCE. MAY REPEAT ONCE IN 1 HOUR IF NEEDED active Not Available Not Available No t Available glatiramer 20 mg/mL subcutaneou s syringe active Not Available Not Available No t Available Stiolto Respimat 2.5 mcg-2.5 mcg/actuati on solution for inhalation active Not Available Not Available N ot Available Proctosol HC 2.5 % topical cream perineal applicator 04/19 completed Not Available Not Available Not Available Emgality Pen 120 mg/mL subcutaneou s pen injector INJECT 120MG INTO THE SKIN ONCE EVERY 30 DAYS active Not Available Not Available No t Available Emgality 120 mg/mL subcutaneou s syringe INJECT 120 MG INTO THE SKIN ONCE EVERY 30 DAYS. active Not Available Not Available No t Available Trelegy Ellipta 200 mcg-62.5 mcg-25 mcg powder for inhalation INHALE 1 PUFF BY MOUTH ONCE DAILY active Not Available Not Available No t Available Vitals Date Recorded Body height Body mass index (BMI) Body weight Heart rate Oxygen saturation Oxygen saturation in Arterial blood by Pulse oximetry Respiratory rate Body temperature Systolic blood pressure Diastolic blood pressure Provider Name and Address Organization Details Last Updated DateTime 4 160.02 cm 41.1 kg/m2 722306. 43 g 84 /min 97 % 97 % 18 /min 97 [degF] 130 mm[Hg] 78 mm[Hg] Ghislaine Pandya [place] [facility], 4 15:15:26 Social History Question Answer Notes LastModified by Organizat ion Details LastModified Time Tobacco Smoking Status Former Smoker MD [address], [place], [address], [place] [facility], 04/19/2024 16:02:45 What Is Your Level Of Alcohol Consumption? None Information not available 04/19/2024 What Was The Date Of Your Most Recent Tobacco Screening? 04/19/2024 Information not available 04/19/2024 At What Age Did You Start Smoking Tobacco? 12 Information not available 04/19/2024 How Much Tobacco Do You Smoke? 2 PPD Information not available 04/19/2024 Do You Use Any Illicit Or Recreational Drugs? No Information not available 04/19/2024 How Many Years Have You Smoked Tobacco? 17 Information not available 04/19/2024 Do You Or Have You Ever Used Any Other Forms Of Tobacco Or Nicotine? No Information not available 04/19/2024 Sex: Unknown Functional Status None recorded. Mental Status None recorded. Family History Nothing Reported. Medical History No medical history recorded. Gynecological HistoryNo gynecological history recorded. Obstetrics History GPAL:G 0 P 0 0 0 0 Immunizations Vaccine Type Date Status Note Provider Nam e and Address Organization Details Recorded Time Pneumococcal conjugate PCV20, polysaccharide [id number] conjugate, adjuvant, PF [address], [place], [address], [place] [facility], 04/19/2024 15:29:45 Respiratory syncytial virus (RSV) vaccine, unspecified [address], [place], [address], [place] [facility], 04/19/2024 15:49:48 Past Encounters Encounter ID Performer Location Encounter Start Date Encounter Closed Date Diagnosis/Indication Diagnosis SNOMED-CT Code Diagnosis ICD10 Code Diagnosis Note [id number] Armida Waterman MD OFFICE [address] [place] [address],[address] [address] 04/19/2024 14:54:40 04/19/2024 16:51:49 Severe persistent asthma 367127062 J45.50 She has required 3 steroid tapers in 6 months. She is morbidly obese, has GE reflux and diastolic dysfunctio n. Her smoking history is remote. She has been on bronchodil ator and anti-leuko triene therapy alone without inhaled corticoste roid. Change dual bronchodil ator (Stiolto) to ICS/LABA/L AMA. Patient is concerned about thrush and this is why she has not been on an inhaled corticoste roid. I recommend that she rinse with clean tap water not salt water. Continue montelukas t. Check CBC with eosinophil count and total IgE in preparatio n for addition of biologic therapy. Today's spirometry is impeded by the fact that she took an albuterol nebulizer treatment 2-1/2 hours prior to PFT. No significan t response to bronchodil ator. Health Concerns Section Related Observation LastModified by Organization Detai ls LastModified Time None Recorded Concern Status LastModified by Organization Details LastModified Time None Recorded Advance Directives Directive None Recorded Payers Encounter Date Sequence Insurance Name Policy Number Policy Rose Covered Member ID Rose Member ID Guarantor Name 04/19/2024 1 [facility] [id number] Eugenia Ar Pinzon [id number] Eugenia Pinzon Notes Date Note Type Note Provider Name and Address Organization Details Recorded Time 04/19/2024 text/html Eugenia is self-referred for evaluation of severe asthma. She has been in the red zone on her peak flow meter for the last 2 months. She was diagnosed with asthma some 20 years ago. She had a methacholine challenge at one point that was positive. She has been on Stiolto twice daily. She is also in the habit of taking 2 puffs of Ventolin twice daily. She also takes montelukast. She used to see an rn endocrinology to skin test her told her of the test were negative. She has known GERD and Barnard's esophagus. She takes PPI twice daily. She is a former smoker. He smoked for 17 years at 2 packs per day having quit at age 29. She has a history of environmental tobacco smoke exposure as well has living near a [place] growing [place]. She took her Prevnar in July 2022. She completed a prednisone taper about 10 days ago. The prednisone helped but the response was short-lived. Review of prescribing records reveals steroid taper in September 2023, March 15, 2024 and April 01, 2024 Armida Waterman MD [address], [place], [address], [facility] [place] [facility], 04/19/2024 16:48:37 OBGyn Episode No OBEpisode recorded.
--- OUTSIDE RECORDS SUMMARY | 2025-03-24 13:52 | XMS_ITS | Encounter Summary ---
Author Organization [facility] Address [address] [place] [address] Care Team Providers Care Restaurant Maintenance Technician Name Role Phone Rod Buckner PA-C Primary Care Provide r Zuly Miller MD Unavailable [phone] Ayan Orozco FINANCIAL SERVICES EDUCATION CONSULTANT-CORRECTIONAL NURSE Primary Care Provider Encounter Details Date Type Department Care Team (Late st Contact Info) Description 05/22/2022 Patient Outreach [facility] ENDOSCOPY [address] [place] [phone] Shanice Hernandez, RN Social History Tobacco Use [...] degree: occupational, technical, or vocational program 10/08/2020 Comments No Sex and Gender Information Value Date Recorded Sex Assigned at Not on file Legal Sex Female 12:42 PM CREDIT ANALYSIS MANAGER Gender Identity Not on file Sexual Orientation Not on file documented as of this encounter Functional Status * Is person deaf or have serious hearing difficulty? Answer Date of Assessment Author No 05/21/2022 11:51 AM Violeta Humphrey RN * Is person blind or have serious difficulty seeing? Answer Date of Assessment Author No 05/21/2022 11:51 AM Violeta Humphrey RN * Does person have serious difficulty walking/climbing stairs? Answer Date of Assessment Author No 05/21/2022 11:51 AM Violeta Humphrey RN * Does person have difficulty dressing/bathing? Answer Date of Assessment Author No 05/21/2022 11:51 AM Violeta Humphrey RN * Does person have difficulty doing errands alone? Answer Date of Assessment Author No 05/21/2022 11:51 AM Violeta Humphrey RN documented as of this encounter Mental Status * Does person have difficulty concentrating/remembering/making decisions? Answer Entry Date Author No 05/21/2022 11:51 AM Violeta Humphrey RN documented in this encounter Plan of Treatment Upcoming Encounters Date Type Department Care Team (Late st Contact Info) Description 04/12/2025 9:30 AM CDT Office Visit [facility] - Urology [address] [place] [address], [place] [address] Ni Thapa, [address] DIV [place] [address] 05/17/2025 10:00 AM CDT Appointment [facility] DIAGNOSTIC RAD OP [address] [place] [address] Lizet Contreras, FINANCIAL SERVICES EDUCATION CONSULTANT-CORRECTIONAL NURSE [address] [place] [address] 05/31/2025 9:00 AM CDT Office Visit [facility] - GI [address] [facility], [place] [address] Isai Leon MD [address] [place] [address] 08/16/2025 10:00 AM CDT Appointment [facility] INFUSION CENTER [address] [place] [address] [place] [address] [facility] [address] [place] [address] 08/16/2025 10:40 AM CDT Office Visit [facility] - Hematology/Oncology [address] [place] [phone] Zuly Miller MD [address] [facility] [address] [place] [address] 08/21/2025 11:30 AM CDT Office Visit [facility] - General Surgery [address] [place] [address] Bebe Faulkner MD [address] [facility] [address] [place] [address] documented as of this encounter Goals Goal Patient Goal Type Associated Problems Recent Progress Patient-Stated? Author Safety General On track( 024 2:13 PM CREDIT ANALYSIS MANAGER) Ml Serra, RN Note: Expected end date: Ongoing Interventions: Your nurse will assess your risk for falls/injury each visit Use appropriate and safe transfer methods Medication Management General On track( 024 2:13 PM CREDIT ANALYSIS MANAGER) Ml Serra, RN Note: Expected end date: Ongoing Interventions: Take all medications as prescribed Let your doctor know right away about any changes in your medications documented as of this encounter Visit Diagnoses Not on filedocumented in this encounter Care Teams Restaurant Maintenance Technician Relationship Specialty Start Date End Date Rod Buckner PA-C [address] [place] [address] PCP - General 02/18/19 02/21/25 Ayan Orozco APRN-CORRECTIONAL NURSE [address] [place] [address] PCP - General Nurse Practitioner 02/22/25 Zuly Miller MD [address] [facility] [address] [place] [address] Hematology and Oncology 02/17/24 documented as of this encounter
--- OUTSIDE RECORDS SUMMARY | 2025-03-24 13:52 | XMS_ITS ---
Author Organization [address] Address [address] [place] [address] Care Team Providers Care Mva Reactor Operator Head Name Role Phone Gail Wyatt MD Unavailable [phone] Lobito Gonzalez DO Primary Care Provider [phone] Active Problems Problem Noted Date Diagnosed Date Renal mass, left 03/10/2025 Asthma in adult, mild persistent, uncomplicated 11/08/2024 Chronic bronchitis, unspecified chronic bronchit is type 04/01/2024 retirement (current) use of aromatase inhibitors 08/15/2022 Acquired absence of both breasts 02/07/2021 Malignant neoplasm of breast 02/07/2021 Cancer Staging:Clinical:Stage IA(cT1b, cN0(sn), cM0, G1, ER+, VA+, HER2-) - Signed by Gail Wyatt MD [...] Tamsulosin Assessment & Plan (12/08/2019 10:21 AM INTERNATIONAL FIRST OFFICER): Desipramine Tamsulosin Assessment & Plan (05/24/2019 7:33 [...] discussed. Assessment & Plan (12/08/2019 10:20 AM INTERNATIONAL FIRST OFFICER): Continue Emgality monthly Continue Botox Should not [...] depression Assessment & Plan (12/08/2019 10:36 AM INTERNATIONAL FIRST OFFICER): Continue following with Dr. Oviedo Asthma 08/24/2015 [...] hypercholesterolemia 09/11/2011 Atherosclerotic heart diseas e of [place] coronary artery without angina pectoris 09/10/2011 Edema 09/10/2011 Essential (primary) hypertension 09/10/2011 Heart failure, unspecified ([facility]) 09/10/2011 Multiple sclerosis ([facility]) 12/07/2008 Assessment & Plan (09/21/2024 [...] that she completed MRI imaging at an [facility] in September 2022 but [...] discussed. Assessment & Plan (12/08/2019 10:31 AM INTERNATIONAL FIRST OFFICER): Discussed the option of oral medication due to lipoatrophy. I told her she should not inject in those areas and that the medication maybe less effective is she is injecting in non-approved sites. Patient declines talk of oral medication options. Continue Copaxone 20mg daily per patient preference Continue exercise Discussed weight loss and nutrition. Will also provide her with Toya Valladares PRINTING ROLLER POLISHER phone number Follow up with Dr. Brennan [...] T1bN0(i-)M0, stage IA. ER pos 100% (strong), VA pos 100% (strong), Her-2 neg (0 on [...]
--- OUTSIDE RECORDS SUMMARY | 2025-03-24 13:52 | XMS_ITS | Encounter Summary ---
Author Organization [facility] Address [address] [place] [address] Care Team Providers Care Mixer Diamond Powder Name Role Phone Rod Buckner PA-C Primary Care Provide r Zuly Miller MD Unavailable [phone] Ayan Orozco COOLER MAN-RAIL MANAGER Primary Care Provider Encounter Details Date Type Department Care Team (Late st Contact Info) Description 05/22/2022 Patient Outreach [facility] [address] [place] [id number] Shanice Hernandez, RN Social History Tobacco Use [...] on file Legal Sex Female 12:42 PM MANAGER INDUSTRIAL Gender Identity Not on file Sexual Orientation [...] Office Visit [facility] - Urology [address] [place] [address], [place] [address] Ni Thapa, [address] [place] [phone] 05/17/2025 10:00 AM CDT Appointment [facility] OP [address] [place] [phone] Lizet Contreras, COOLER MAN-RAIL MANAGER [address] [place] [address] 05/31/2025 9:00 AM CDT Office Visit [facility] - GI [address] [facility], [place] [phone] Isai Leon MD [address] [place] [phone] 08/16/2025 10:00 AM CDT Appointment [facility] [address] [place] [address] [place] [address] [facility] [address] [place] [phone] 08/16/2025 10:40 AM CDT Office Visit [facility] - Hematology/Oncology [address] [place] [phone] Zuly Miller MD [address] [facility] 3 [place] [address] 08/21/2025 11:30 AM CDT Office Visit [facility] - General Surgery [address] [place] [phone] Bebe Faulkner MD [address] [facility] [address] [place] [phone] documented as of this encounter Goals Goal Patient Goal Type Associated Problems Recent Progress Patient-Stated? Author Safety General On track( 024 2:13 PM MANAGER INDUSTRIAL) Ml Serra, RN Note: Expected end date: Ongoing Interventions: Your nurse will assess your risk for falls/injury each visit Use appropriate and safe transfer methods Medication Management General On track( 024 2:13 PM MANAGER INDUSTRIAL) Ml Serra, RN Note: Expected end date: Ongoing Interventions: Take all medications as prescribed Let your doctor know right away about any changes in your medications documented as of this encounter Visit Diagnoses Not on filedocumented in this encounter Care Teams Mixer Diamond Powder Relationship Specialty Start Date End Date Rod Buckner PA-C [address] [place] [address] PCP - General 02/18/19 02/21/25 Ayan Orozco APRN-RAIL MANAGER [address] [place] [address] PCP - General Nurse Practitioner 02/22/25 Zuly Miller MD [address] [facility] 3 [place] [address] Hematology and Oncology 02/17/24 documented as of this encounter
--- OUTSIDE RECORDS SUMMARY | 2025-03-24 13:52 | XMS_ITS | Encounter Summary ---
Author Organization [facility] Address [address] [place] [address] Care Team Providers Care Catalytic Converter Operator Name Role Phone Rod Buckner PA-C Primary Care Provide r Zuly Miller MD Unavailable [phone] Ayan Orozco GRADUATE CIVIL ENGINEER-FILM LABORATORY TECHNICIAN Primary Care Provider Encounter Details Date Type Department Care Team (Late st Contact Info) Description 01/15/2023 Lab Requisition [facility] Care Derm[facility] Lab [address] [facility] [place] [address] Dario Pérez MD [facility] [place] [address] Social History Tobacco Use Types [...] on file Legal Sex Female 12:42 PM CURTIS Gender Identity Not on file Sexual Orientation Not on file documented as of this encounter Functional Status * Is person deaf or have serious hearing difficulty? Answer Date of Assessment Author No 11/26/2022 8:22 AM Shruti Rice RN * Is person blind or have serious difficulty seeing? Answer Date of Assessment Author No 11/26/2022 8:22 AM Shruti Rice RN * Does person have serious difficulty walking/climbing stairs? Answer Date of Assessment Author No 11/26/2022 8:22 AM Shruti Rice RN * Does person have difficulty dressing/bathing? Answer Date of Assessment Author No 11/26/2022 8:22 AM Shruti Rice, KIERA * Does person have difficulty doing errands alone? Answer Date of Assessment Author No 11/26/2022 8:22 AM Shruti Rice RN documented as of this encounter Mental Status * Does person have difficulty concentrating/remembering/making decisions? Answer Entry Date Author No 11/26/2022 8:22 AM Shruti Rice RN documented in this encounter Plan of Treatment Upcoming Encounters Date Type Department Care Team (Late st Contact Info) Description 04/12/2025 9:30 AM CDT Office Visit [facility] - Urology [address] [facility], [place] [phone] Ni Thapa DO [address] [facility] [place] [address]L [place] [phone] 05/17/2025 10:00 AM CDT Appointment [facility] DI[facility] RAD OP [address] [place] [phone] Lizet Contreras, GRADUATE CIVIL ENGINEER-FILM LABORATORY TECHNICIAN [address] [place] [address] 05/31/2025 9:00 AM CDT Office Visit [facility] - GI [address] [facility], [place] [phone] Isai Leon MD [address] [place] [phone] 08/16/2025 10:00 AM CDT Appointment [facility] [address] [place], [place] [id number] [place] [address] [facility] [address] [place] [phone] 08/16/2025 10:40 AM CDT Office Visit [facility] - Hematology/Oncology [address] [place] [phone] Zuly Miller MD [address] [facility] 3 [place], [place] [phone] 08/21/2025 11:30 AM CDT Office Visit [facility] - General Surgery [address] [place] [phone] Bebe Faulkner MD [address] [facility] [address] [place] [phone] documented as of this encounter Goals Goal Patient Goal Type Associated Problems Recent Progress Patient-Stated? Author Safety General On track( 024 2:13 PM PRODUCTION POTTER) Ml Serra, RN Note: Expected end date: Ongoing Interventions: Your nurse will assess your risk for falls/injury each visit Use appropriate and safe transfer methods Medication Management General On track( 024 2:13 PM PRODUCTION POTTER) Ml Serra, KIERA Note: Expected end date: Ongoing Interventions: Take all medications as prescribed Let your doctor know right away about any changes in your medications documented as of this encounter Procedures Procedure Name Priority Date/Time Associated Diagnosis Comments DERMATOPATHOLOGY Routine 01/15/2023 12:0 0 AM PRODUCTION POTTER documented in this encounter Results * DERMATOPATHOLOGY (01/15/2023 12:00 AM PRODUCTION POTTER) Case Report Dermatopathology Report Case: [id number] Authorizing Provider: Dario Pérez MD Collected: 01/15/2023 12:00 AM Ordering Location: [facility] DermPath Lab Received: 01/15/2023 04:51 PM Pathologist: Goldie Choudhary MD Specimen: Skin, left thumb 3 11:02 AM [facility] DERMATOPATH[facility]Y [facility]ORAT[facility] Final Diagnosis Specimen A. SKIN, left thumb: VERRUCA PLANA (B07.8) 3 11:02 AM [facility] DERMATOPATHOLOGY LABORATORY Clinical History Patch/plaque eczema, contact, Reena, [facility], [place] 3 11:02 AM [facility] DERMATOPATHOLOGY [facility]ORATORY Gross Description Specimen A: Received is one formalin filled container labeled with the patient's name and designated left thumb. The specimen consists of a shave biopsy measuring 8x4x1 mm. Jar 0. 3 11:02 AM [facility] DERMATOPATHOLOGY LABORATORY Microscopic Description Specimen A. SKIN, left thumb: There is gently papillated epidermal hyperplasia, hypergranulosis, and laminated hyperorthokeratosis . 3 11:02 AM [facility] DERMATOPATHOLOGY LABORATORY Disclaimer An external and internal positive and negative controls are appropriate for the histochemical, immunohistochemical and immunofluorescence stain(s) in this case (if any), except where stated explicitly. The performance characteristics of the stain(s) cited in this report were developed and its performance characteristic determined by the Dermatopathology Laboratory at [facility], directed by Dr. Ced Salazar. These tests need not be, and therefore are not, approved by the [place] Food and Drug Administration. The tests are used for clinical purposes. Billing Codes Specimen Charges Stain Charges 93532 1 3 11:02 AM [facility] DERMATOPATHOLOGY LABORATORY Embedded Images 3 11:02 AM [facility] DERMATOPATHOLOGY LABORATORY Pathology/Cytolog y TISSUE SPECIMEN FROM SKIN / Unknown 01/15/2023 01/15/2023 4:51 PM PRODUCTION POTTER Dario Pérez MD LAB - PATHOLOGY/CYTOLOGY ORDERAB LES Final Result DERMATOPATHOLOGY LABORATORY [facility] - Department of Dermatology [facility] Medicine [address] [place] [address], [address] [phone] documented in this encounter Visit Diagnoses Not on filedocumented in this encounter Care Teams Catalytic Converter Operator Relationship Specialty Start Date End Date Rod Buckner PA-C [address] [place] [address] PCP - General 02/18/19 02/21/25 Ayan Orozco, GERI-FILM LABORATORY TECHNICIAN [address] [place] [address] PCP - General Nurse Practitioner 02/22/25 Zuly Miller MD [address] [facility] 3 [place] [address] Hematology and Oncology 02/17/24 documented as of this encounter
--- OUTSIDE RECORDS SUMMARY | 2025-03-24 13:52 | XMS_ITS | Clinical Summary ---
Author Organization [facility] Address [address] [place] [address] Care Team Providers Care Candy Starch Mold Printer Name Role Phone Zuly Miller MD Unavailable [phone] Ayan Orozco APRN-SUPERVISOR PIG MACHINE Primary Care Provider Source Comments [facility],non-owned Affiliates and Associated Physician Practices is amultiple site organization consisting of ambulatory clinics and hospital sitesin [place], [place], [place] and [place]. This disclosure is being madepursuant to the Care Everywhere program and may not contain all information available regarding this patient. Last updated 18.[facility] Allergies Active Allergy Reactions Criticality Noted Date Comments Amphetamine-Dextroampheta mine Palpitations Medium 01/28/2017 Adhesive Sensitivity Rash Medium 11/10/2011 Allergy Palpitations Medium 01/28/2017 Dermolin Nausea and/or Vomiting Low 02/04/2017 Allyl Isothiocyanate Nausea and/or Vomiting Low 02/04/2017 Eowkoquc-Lhuxwlelc-Yoxisk ine Rash Medium 01/28/2017 Armodafinil Unknown High 06/12/2015 Other reaction(s): Neuropathy Bacitracin Unknown Low 02/11/2019 [place] Oil Nausea and/or Vomiting,Unknown Medium 11/10/2011 Cefuroxime [...] Nausea and/or Vomiting Low 02/04/2017 Medications * This document contains information received from the source organization and may not represent a complete record from that organization. * Be aware that medications may not be up to date on this document. Alwaysverify current medications with the patient. baclofen (LIORESAL) 10 MG tablet Take 3 (three) tablets by mouth 4 times daily May cause drowsiness. Active dilTIAZem coated beads 24hr (CARDIZEM CD) 120 MG capsule Take 1 (one) capsule by mouth once daily Do not crush or chew. Active glatiramer (COPAXONE) 20 MG/ML prefilled syringe Inject 1 mL subcutaneously once daily Active fluticasone propionate (FLONASE) 50 MCG/ACT nasal spray [place] 1 (one) spray into each nostril 2 times daily Active Tiotropium [place]-Olodate rol 2.5-2.5 MCG/ACT Inhale 1 puff by mouth [...] mouth at bedtime Active Sodium Fluoride (PREVIDENT DT)Indications: Dysphagia,Dysph agia, unspecified type,Adenomatou s polyp of colon, unspecified part of colon,Diarrhea, unspecified type by dental route at bedtime Active aspirin (ASPIRIN) 81 MG tabletIndicatio ns:Dysphagia,Dy sphagia, unspecified type,Adenomatou s polyp of colon, unspecified part of colon,Diarrhea, unspecified type Take 1 (one) tablet by mouth once daily Active multivitamin daily (THERAGRAN) tabletIndicatio ns:Dysphagia,Dy sphagia, unspecified type,Adenomatou s polyp of colon, unspecified part of colon,Diarrhea, unspecified type Take 1 (one) tablet by mouth daily with food Active Zinc 30 MGIndications:D ysphagia,Dyspha luisa, unspecified type,Adenomatou s polyp of colon, unspecified part of colon,Diarrhea, unspecified type Take 60 mg by mouth once daily Active Probiotic Product (zappit HEALTH PO)Indications: Dysphagia,Dysph agia, unspecified type,Adenomatou s polyp of colon, unspecified part of colon,Diarrhea, unspecified type Take 1 tablet by mouth once daily Active Cyanocobalamin 5000 MCG TBDPIndications :Dysphagia,Dysp hagia, unspecified type,Adenomatou s polyp of colon, unspecified part of colon,Diarrhea, unspecified type Take 1 tablet by mouth once daily Active Glucosamine-Cho ndroitin (GLUCOSAMINE CHONDR COMPLEX PO)Indications: Dysphagia,Dysph agia, unspecified type,Adenomatou s polyp of colon, unspecified part of colon,Diarrhea, unspecified type Take 1 tablet by mouth 3 times daily Active nitroGLYCERIN (NITROSTAT) 0.4 MG tabletIndicatio ns:Dysphagia,Dy sphagia, unspecified type,Adenomatou s polyp of colon, unspecified part of colon,Diarrhea, unspecified type Dissolve 1 (one) tablet under the tongue as needed 04/01/20 18 Active meclizine (ANTIVERT) 12.5 MG tabletIndicatio ns:Dysphagia,Dy sphagia, unspecified type,Adenomatou s polyp of colon, unspecified part of colon,Diarrhea, unspecified type Take 2 (two) tablets by mouth every 6 hours as needed Active albuterol HFA (PROVENTIL; VENTOLIN; PROAIR) 108 (90 Base) MCG/ACT inhalerIndicati ons:Dysphagia,D ysphagia, unspecified type,Adenomatou s polyp of colon, unspecified part of colon,Diarrhea, unspecified type Inhale 2 (two) puffs by mouth 4 times daily as needed 2 puffs 3 times daily Active albuterol (PROVENTIL;VENT GEORGE) (2.5 MG/3ML) 0.083% nebulizer solutionIndicat ions:Dysphagia, Dysphagia, unspecified type,Adenomatou s polyp of colon, unspecified part of colon,Diarrhea, unspecified type Inhale by mouth every 4 hours as needed for Shortness of Breath or Wheezing Active mupirocin (BACTROBAN) 2 % ointmentIndicat ions:Dysphagia, Dysphagia, unspecified type,Adenomatou s polyp of colon, unspecified part of colon,Diarrhea, unspecified type Apply to affected area as needed Active Ca Carbonate-Mag Hydroxide (ROLAIDS PO) Take by mouth as needed Active Menthol (HALLS COUGH DROPS MT) by Mouth/Throat route every 2 hours as needed Active furosemide (LASIX) 40 MG tabletIndicatio ns:Edema Take 1.5 (one and one-half) tablets by mouth 2 times daily Reasons: Edema Active EMGALITY 120 MG/ML auto-injector pen INJECT CONTENTS OF 1 PEN (120 MG) UNDER THE SKIN EVERY 30 DAYS 5 10/29/20 19 Active methylphenidate CR (METADATE CD) 20 MG capsule as needed 10/19/20 19 Active POTASSIUM CHLORIDE ER PO Take 45 mL by mouth duluted into 120ml of water 3 times daily Active Simethicone (GAS-X PO) Take by mouth 3 times daily Active acetaminophen (TYLENOL) 325 MG tablet Take 2 tablets by mouth every 4 hours as needed for Fever or Pain Maximum allowable Acetaminophen amount = 4 Grams (4000 mg) / 24 hours. 104 tablet 1 07/06/20 20 Active acetaminophen-c odeine (TYLENOL #3) 300-30 MG tablet Take 1 tablet by mouth every 6 hours as needed for Pain 24 tablet 07/06/20 20 Active Additional Information Patient not taking.Reported on 07/27/2024 Cholecalciferol 1.25 MG (20098 UT) Take 50,000 Units by mouth Active tamsulosin (FLOMAX) 0.4 MG capsule 01/02/20 21 Active cetirizine (ZYRTEC) 10 MG tablet Take 1 (one) tablet by mouth once daily 04/10/20 21 Active [place]-3 Fatty Acids (fish oil) 1000 MG capsule Active biotin 5 MG tablet Active benzonatate (Tessalon) 200 MG capsule 3 times daily as needed 11/29/20 22 Active methylphenidate (Ritalin) 10 MG tablet Take 1 (one) tablet by mouth 2 times daily 11/27/20 22 Active SUMAtriptan Succinate 6 MG/0.5ML 09/04/20 22 Active EVENING PRIMROSE OIL PO Take 1,300 mg by mouth once daily Active CRANBERRY EXTRACT PO Take 8,400 mg by mouth 3 times daily Active betamethasone dipropionate augmented (Diprolene Af) 0.05 % cream 2 times daily as needed 07/23/20 23 Active hyoscyamine (Levsin SL) 0.125 MG sublingual tabletIndicatio ns:Oropharyngea l dysphagia DISSOLVE UNDER THE TONGUE 1 TABLET EVERY 4 HOURS NEEDED FOR SPASMS Strength: 0.125 mg 540 tablet 01/18/20 24 Active trimethobenzami de (Tigan) 300 MG capsule Take 1 (one) capsule by mouth every 8 hours as needed for Nausea/Vomiting 30 capsule 01/26/20 24 Active levothyroxine (Synthroid) 175 MCG tablet Take 1 (one) tablet by mouth once daily Active diazePAM (Valium) 5 MG tablet Take 1 (one) tablet by mouth every 6 hours as needed Active ondansetron, disintegrating, (Zofran ODT) 8 MG tabletIndicatio ns:Nausea and Vomiting Take 1 (one) tablet by mouth every 8 hours as needed for Nausea/Vomiting Allow tablet to dissolve on the tongue Reasons: Nausea and Vomiting 15 tablet 2 02/17/20 24 Active sucralfate (Carafate) 1 GM/10ML suspension TAKE 20 ML BY MOUTH 4 TIMES DAILY 7452 mL 3 05/18/20 24 Active budesonide (Pulmicort) 0.5 MG/2ML nebulizer suspension INHALE THE CONTENTS OF 1 VIAL VIA NEBULIZER ONCE DAILY. RINSE AND SPIT AFTER USE 04/01/20 24 Active esomeprazole (NexIUM) 40 MG capsule 07/18/20 24 Active Trelegy Ellipta 200-62.5-25 MCG/ACT inhaler Inhale 1 (one) puff by mouth once daily 04/19/20 24 Active exemestane (Aromasin) 25 MG tablet TAKE 1 TABLET BY MOUTH ONCE DAILY 90 tablet 3 09/02/20 24 Active desipramine (Norpramin) 10 MG tablet TAKE 1 AND 1/2 TABLETS BY MOUTH AT BEDTIME 135 tablet 3 08/30/20 24 Active diphenoxylate-a tropine (Lomotil) 2.5-0.025 MG tabletIndicatio ns:Dysphagia, unspecified type,Adenomatou s polyp of colon, unspecified part of colon,Diarrhea, unspecified type TAKE 1 TABLET BY MOUTH EVERY 3 HOURS NEEDED FOR DIARRHEA 90 tablet 4 09/06/20 24 Active predniSONE (Deltasone) 10 MG tablet Take 5 (five) tablets by mouth once 02/25/20 25 Active fezolinetant (Veozah) 45 MG tabletIndicatio ns:Hot flashes related to aromatase inhibitor therapy Take 1 (one) tablet by mouth once daily 30 tablet 03/20/20 25 Active fezolinetant (Veozah) 45 MG tablet Take 1 (one) tablet by mouth once daily 30 tablet 02/17/20 25 025 Discontinu ed(Reorder ) diazePAM (Valium) 5 MG tablet Take 2 (two) tablets by mouth once for 1 dose Take 7.5mg before MRI. 2 tablet 03/01/20 25 025 Active Problems Problem Noted Date Diagnosed Date Barnard's esophagus 04/19/2024 Diastolic dysfunction 04/19/2024 Osteopenia of multiple sites 10/14/2023 Acquired absence of both breasts 02/07/2021 Breast cancer, right 2020, stage 0 07/06/2020 Cancer Staging:Clinical stage from 09/28/2021:Stage 0(cTis (DCIS), cN0, cM0, G2, ER: Not Assessed, DE: Not Assessed, HER2: Not Assessed) - Signed by Meghana Zapata MD on 09/29/2021 Pathologic stage from 09/29/2021:Stage 0(pTis (DCIS), cN0, cM0, G2, ER: Not Assessed, DE: Not Assessed, HER2: Not Assessed) - Signed [...] from 07/18/2020:Stage IA(cT1b, cN0, cM0, G1, ER+, DE+, HER2-) - Signed by Meghana Zapata MD on 09/29/2021 Pathologic stage from 07/18/2020:Stage IA(pT1b, pN0(sn), cM0, G1, ER+, DE+, HER2- ) - Signed by Meghana Zapata MD on 09/29/2021 Overview (09/29/2021): Left, upper outer, 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 ER pos 100% (strong), DE pos 100% (strong), Her-2 neg (0 on IHC), ki-67 10%. 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 09/11/2011 Essential [...] Encounters Date Type Department Care Team Description 03/21/2025 7:31 AM CDT - 03/21/2025 11:59 PM CDT Hospital Encounter [facility] Health Imaging Services - MRI [address] [place] [address] Unknown, Provider Discharge Disposition: Home or Self Care 03/20/2025 Orders Only [facility] - Hematology/Oncolog y [address] [place] [phone] Josey August, RN Hot flashes related to aromatase inhibitor therapy 03/08/2025 Travel 03/08/2025 Refill [facility] - GI [address] [facility] [place] [address] Jaylon Castro DO Refill Request 03/01/2025 7:13 AM CDT - 03/01/2025 11:59 PM CDT Hospital Encounter [facility] [address] [place] [address] Brian Varela MD Discharge Disposition: Home or Self Care 03/01/2025 7:00 AM CDT - 03/01/2025 7:12 AM CDT Hospital Encounter [facility] [address] [place] [address] Brian Varela MD Discharge Disposition: Home or Self Care 03/01/2025 Telephone [facility] - Urology [address] [place] [address] Brian Varela MD Results 02/28/2025 10:00 AM CDT Office Visit [facility] - Urology [address] [place] [address] Brian Varela MD Kidney stones (Primary Dx); Renal mass; Gross hematuria 02/28/2025 Orders Only [facility] - Urology [address] [facility] [place] [address] Violeta Gonzales LPN Renal mass ; Gross hematuria 02/28/2025 Travel 02/16/2025 Telephone [facility] - Hematology/Oncolog y [address] [place] [address] Zuly Miller MD Medication Prior Auth Request 02/16/2025 Telephone [facility] - Hematology/Oncolog y [address] [place] [phone] Zuly Miller MD Medication Prior Auth Request 02/16/2025 Telephone [facility] - Hematology/Oncolog y [address] [place] [address] Zuly Miller MD Medication Prior Auth Request 02/16/2025 Orders Only [facility] - Hematology/Oncolog y [address] [place] [address] Lizet Contreras APRN-CNP 02/15/2025 10:20 AM CDT Office Visit [facility] - Hematology/Oncolog y [address] [place] [address] Lizet Contreras, GAMBLING DEALER-SUPERVISOR PIG MACHINE Osteoporosis, unspecified osteoporosis type, unspecified pathological fracture presence (Primary Dx); Hot flashes related to aromatase inhibitor therapy 02/15/2025 9:40 AM CDT - 02/15/2025 11:59 PM CDT Hospital Encounter [facility] [address] [place] [address] Wilmer Zhang MD Discharge Disposition: Home or Self Care 02/07/2025 Orders Only [facility] [address] [place] [phone] Misha Nice, PharmD 01/12/2025 Telephone [facility] - GI [address] [place] [phone] Rebel Perez MD Results 01/11/2025 Telephone [facility] - GI [address] [place] [phone] Janeth Foreman MD MEDICATION REFILL 01/10/2025 Telephone [facility] - Nephrology [address] [place] [phone] Shawnee Schwarz RN Question 01/04/2025 10:30 AM CEREAL CHEMIST - 01/04/2025 11:15 AM CEREAL CHEMIST Surgery [facility] ENDOSCOPY [address] [place] [phone] Janeth Foreman MD EGD w/ maya--miralax prep--arrive 90min early 01/04/2025 9:55 AM CEREAL CHEMIST Anesthesia Event [facility] ENDOSCOPY [facility] [place] [phone] Neel Lopez MD Heath, Kayla D, CAA 01/04/2025 8:44 AM CEREAL CHEMIST - 01/04/2025 12:02 PM CEREAL CHEMIST Hospital Encounter [facility] [address] [place] [phone] Janeth Foreman MD Surgery General Discharge Disposition: Home or Self Care 01/04/2025 Travel 12/30/2024 Patient Outreach [facility] ENDOSCOPY [address] [place] [phone] Yuni Orozco RN from Last 3 Months Immunizations Immunization Administration Dates Next Due Covid Pixelapse primary monoval ent 12+ yr 0.3mL Purple cap 09/20/2021,02/26/2021,01/29/2021 FLU VACCINE TRI IIV3 SPLIT P F IM (FLUVIRIN) 11/07/2013 HEP B VACCINE, ADULT 3 DOSE 03/12/1998, 8 INFLUENZA A [id number] VACCINE 08/30/2013 INFLUENZA VACCINE 09/20/2021,10/13/2014 INFLUENZA VACCINE, [...] on file Legal Sex Female 12:42 PM CEREAL CHEMIST Gender Identity Not on file Sexual Orientation Not on file Last Filed Vital Signs Vital Sign Reading Time Taken Comments Blood Pressure 149/82 02/28/2025 9:34 AM CDT TOO K BP MEDS Pulse 95 02/28/2025 9:34 AM CDT Temperature 36.6 C (97.9 F) 02/28/2025 9:34 AM CDT Respiratory Rate 17 02/28/2025 9:34 AM CDT Oxygen Saturation 93% 02/28/2025 9:34 AM CDT Inhaled Oxygen Concentration 21% 07/06/2020 2 :25 PM CDT Weight 106.6 kg (235 lb) 02/28/2025 9:34 AM CDT Height 160 cm (5' 3 ) 02/28/2025 9:34 AM CDT Body Mass Index 41.63 02/28/2025 9:34 AM CDT Plan of Treatment Upcoming Encounters Date Type Department Care Team (Late st Contact Info) Description 04/12/2025 9:30 AM CDT Office Visit [facility] - Urology [address] [facility] [place] [phone] Ni Thapa M, [address] [facility] 2L [place] [phone] 05/17/2025 10:00 AM CDT Appointment [facility] DIAGNOSTIC RAD OP [address] [place] [phone] Lizet Contreras, GAMBLING DEALER-SUPERVISOR PIG MACHINE [address] [place] [address] 05/31/2025 9:00 AM CDT Office Visit [facility] - GI [address] [facility] [place] [phone] Isai Leon MD [address] [place] [phone] 08/16/2025 10:00 AM CDT Appointment [facility] [address] [place] [address] [place] [address] [place] [phone] 08/16/2025 10:40 AM CDT Office Visit [facility] - Hematology/Oncology [address] [place] [phone] Zuly Miller MD [address] [facility] [address] [place] [address] 08/21/2025 11:30 AM CDT Office Visit [facility] - General Surgery [address] [facility] [place] [address] Bebe Faulkner MD [address] [facility] [address] [place] [address] Health Maintenance Due Date Last [...] years 1-dose series) 2018 MAMMOGRAM 06/12/2022 06/12/2020, 07/07/2020, 03/09/2019, Additional history exists DTAP/TDAP/TD VACCINES (3 - Td or Tdap) 10/30/2022 10/30/2012, 03/12/2006 COVID-19 VACCINE ( season) 2024 08/08/2022, 03/06/2022, 09/20/2021, Additional history exists PNEUMOCOCCAL VACCINE 50+ (3 of 3 - PCV20 or PCV21) 10/25/2024 10/25/2019, 09/09/2019, 12/09/2017, Additional history exists DEPRESSION SCREENING 11/30/2024 MEDICARE AWV CALENDAR YEAR 2024 INFLUENZA VACCINE (Season Ended) 2025 09/05/2022, 10/15/2021, 09/20/2021, Additional history exists COLON MONITORING 01/04/2027 01/04/2025, 03/2025, 01/27/2024, Additional history exists Colorectal Cancer Screening 01/04/2027 SCREENING FOR DIABETES 02/16/2028 , 08/17/2024, 02/17/2024, Additional history exists COLONOSCOPY - COLON CA SCREENING 01/04/2035 01/04/2025, 01/04/2025, 01/27/2024, Additional history exists BONE DENSITY TESTING Completed 05/25/2023, 05/22/20 21 HIB VACCINE Aged Out No longer eligi ble based on patient's age to complete this topic HPV VACCINE Aged Out No longer eligi ble based on patient's age to complete this topic MENINGOCOCCAL (Group B) VACCINE SHARED DECISION-MAKING Aged Out No longer eligible based on patient's age to complete this topic MENINGOCOCCAL GROUPS A/C/Y/W VACCINE Aged Out No longer eligible based on patient's age to complete this topic Goals Goal Patient Goal Type Associated Problems Recent Progress Patient-Stated? Author Safety General On track( 2:13 PM CEREAL CHEMIST) Ml Serra, KIERA Note: Expected end date: Ongoing Interventions: Your nurse will assess your risk for falls/injury each visit Use appropriate and safe transfer methods Medication Management General On track( 2:13 PM CEREAL CHEMIST) Ml Serra, KIERA Note: Expected end date: Ongoing Interventions: Take all medications as prescribed Let your doctor know right away about any changes in your medications Medical Devices Implanted Type Area Information And Data Architect Analyst Device Identifier Shelf Expiration Date Model / Serial / Lot Mrkr Securmark Brstbio Celero Sys Implanted:Qty: 1 on 06/12/2020 by Maddie Dixon MD at [facility] 10/05/2020 [id number] / / [id number] Description:titanium biopsy marker Procedures Procedure Name Priority Date/Time Associated Diagnosis Comments MRI KIDNEYS WWO CONTRAST Routine 03/21/2025 8:46 AM CDT [address]al mass [address] PELVIS W CONTRAST Routine 03/01/2025 7:50 AM CDT Renal mass Gross hematuria CT KIDNEYS WWO CONTRAST [place] 03/01/2025 7:50 AM CDT Renal mass Gross hematuria DE MSR PVR U&/BLADD CAPCTY US NON Routine 02/28/2025 11:05 AM CDT Renal mass URINALYSIS AUTO - POINT OF CARE (AMB) [facility] Routine 02/28/2025 9:42 AM CDT Kidney stones VITAMIN D 25-HYDROXY [place] 02/15/2025 10:25 AM CDT Malignant neoplasm of upper-outer quadrant of left breast in female, estrogen receptor positive COMPREHENSIVE METABOLIC PANEL Routine 02/15/2025 10:25 AM CDT Malignant neoplasm of upper-outer quadrant of left breast in female, estrogen receptor positive CBC W AUTO DIFFERENTIAL Routine 02/15/2025 10:25 AM CDT Malignant neoplasm of upper-outer quadrant of left breast in female, estrogen receptor positive ENDOSCOPY, COLON, SCREENING Routine 01/04/2025 10:16 AM CEREAL CHEMIST PATHOLOGY TISSUE Routine 01/04/2025 10:14 AM CEREAL CHEMIST 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 THE MR SIGNAL CHARACTERISTICS ARE CONSISTENT WITH A SOLID TUMOR. 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 NOTE THAT BENIGN LESIONS COULD ALSO HAVE THIS MR APPEARANCE. CYTOLOGIC ANALYSIS WOULD BE NECESSARY TO CONFIRM THE DIAGNOSIS. SMALL PROTEINACEOUS CYST RIGHT KIDNEY AND ADDITIONAL SMALL SUBCENTIMETER SIMPLE CYSTS WITHIN BOTH KIDNEYS. THESE DO NOT REQUIRE FURTHER FOLLOW-UP. SMALL SPLENIC LESION COMPATIBLE WITH A HEMANGIOMA. THIS DOES NOT REQUIRE FURTHER FOLLOW-UP. Edited by Gail Foote on 03/21/2025 10:40 AM > Interpreting Provider: Noelle Gutierrez MD on 03/21/2025 11:47 AM Narrative 03/21/2025 11:47 AM CDT PROCEDURE: MRI KIDNEYS WWO CONTRAST DATE/TIME OF EXAM: 03/21/2025 8:46 AM CLINICAL INFORMATION: None relevant/not provided if blank. Indication: N28.89: Other specified disorders of kidney and ureter. Indeterminate bilateral renal masses. COMPARISON: CT kidneys 03/01/2025. TECHNIQUE: MRI of the kidneys was performed utilizing multiple pulse sequences in multiple planes with and without intravenous gadolinium. CONTRAST: GADOTERATE MEGLUMINE 0.5 MMOL/ML IV [facility] SO:20 mL FINDINGS: 2.9 x 3.0 x 2.6 cm round exophytic mass arising from the anterior cortex of the lower pole of the left kidney. Lesion exhibits signal slightly hyperintense to renal parenchyma on precontrast T1-weighted sequences. Lesion is hypointense to renal parenchyma on T2-weighted sequences. Diffusion restriction noted throughout the lesion. Following the administration of intravenous gadolinium, there is subtle persistent internal enhancement throughout the majority of the lesion on the T1 postcontrast subtraction sequences. 1.5 cm round exophytic nodule arising from the lateral cortex of the upper pole of the right kidney. Lesion exhibits a small volume of layering complex T1 hyperintense and hypointense T2 signal within its dependent portion. The remainder of the lesion exhibits fluid signal. No enhancement within the lesion. No diffusion restriction. This is compatible with a proteinaceous cyst. Additional scattered small subcentimeter nonenhancing fluid signal simple cysts identified within both kidneys. The liver exhibits normal size, signal, and morphology. Hepatic vasculature widely patent. No bile duct dilatation. No gallstones. No gallbladder wall thickening. No pericholecystic inflammatory signal. Signal and morphology of the adrenal glands and pancreas are within normal limits. 12 mm round circumscribed lesion within the lateral spleen. This exhibits homogeneous T2 hyperintensity and precontrast T1 hypointensity. Progressive enhancement from peripheral to central within the lesion between the arterial and nephrogenic phases. This is compatible with a small splenic hemangioma. Spleen is otherwise normal in size and signal. Bowel loops normal in caliber. Multiple colonic diverticula noted. No pathologically enlarged lymph nodes. No abnormal sites of marrow signal replacement. Procedure Note Noelle Gutierrez MD - 03/21/2025 PROCEDURE: MRI KIDNEYS WWO CONTRAST DATE/TIME OF EXAM: 03/21/2025 8:46 AM CLINICAL INFORMATION: None relevant/not provided if blank. Indication: N28.89: Other specified disorders of kidney and ureter. Indeterminate bilateral renal masses. COMPARISON: CT kidneys 03/01/2025. TECHNIQUE: MRI of the kidneys was performed utilizing multiple pulse sequences in multiple planes with and without intravenous gadolinium. CONTRAST: GADOTERATE MEGLUMINE 0.5 MMOL/ML IV SSM SO:20 mL FINDINGS: 2.9 x 3.0 x 2.6 cm round exophytic mass arising from the anterior cortexof the lower pole of the left kidney. Lesion exhibits signal slightly hyperintense to renal parenchyma on precontrast T1-weighted sequences. Lesion is hypointense to renal parenchyma on T2-weighted sequences. Diffusion restriction noted throughout the lesion. Following the administration of intravenous gadolinium, there is subtle persistent internal enhancement throughout the majority of the lesion on the T1 postcontrast subtraction sequences. 1.5 cm round exophytic nodule arising from the lateral cortex of theupper pole of the right kidney. Lesion exhibits a small volume of layering complex T1 hyperintense and hypointense T2 signal within its dependent portion. The remainder of the lesion exhibits fluid signal. Noenhancement within the lesion. No diffusion restriction. This is compatible with a proteinaceous cyst. Additional scattered small subcentimeter nonenhancing fluid signalsimple cysts identified within both kidneys. The liver exhibits normal size, signal, and morphology. Hepaticvasculature widely patent. No bile duct dilatation. No gallstones. No gallbladder wall thickening. No pericholecystic inflammatory signal. Signal and morphology of the adrenal glands and pancreas are withinnormal limits. 12 mm round circumscribed lesion within the lateral spleen. Thisexhibits homogeneous T2 hyperintensity and precontrast T1 hypointensity.Progressive enhancement from peripheral to central within the lesion between the arterial and nephrogenic phases. This is compatible with a small splenic hemangioma. Spleen is otherwise normal in size and signal. Bowel loops normal in caliber. Multiple colonic diverticula noted. No pathologically enlarged lymph nodes. No abnormal sites of marrow signal replacement. IMPRESSION: 3 cm EXOPHYTIC MASS ARISING FROM THE ANTERIOR CORTEX OF THE LOWER POLEOF THE LEFT KIDNEY DESCRIBED ABOVE. THE MR SIGNAL CHARACTERISTICS ARE CONSISTENT WITH A SOLID TUMOR. 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 NOTE THAT BENIGN LESIONS COULD ALSO HAVE THIS MR APPEARANCE. CYTOLOGIC ANALYSIS WOULD BE NECESSARY TO CONFIRM THEDIAGNOSIS. SMALL PROTEINACEOUS CYST RIGHT KIDNEY AND ADDITIONAL SMALL SUBCENTIMETER SIMPLE CYSTS WITHIN BOTH KIDNEYS. THESE DO NOT REQUIRE FURTHERFOLLOW-UP. SMALL SPLENIC LESION COMPATIBLE WITH A HEMANGIOMA. THIS DOES NOT REQUIRE FURTHER FOLLOW-UP. Edited by Gail Foote on 03/21/2025 10:40 AM > Interpreting Provider: Noelle Gutierrez MD on 03/21/2025 11:47 AM Brian Varela MD MR ORDERABLES Final Result * CT Pelvis W Contrast (03/01/2025 7:50 AM CDT) Anatomical Region Laterality Modality Pelvis Computed Tomogra phy 03/01/2025 7:58 AM CDT Impressions 03/01/2025 10:50 AM CDT Impression: 1.5 mm nonobstructive stone in the lower pole of the left kidney. 2.A hypoattenuating lesion measuring up to 3.3 cm in the left kidney, has slightly higher density than simple fluid. Evaluation with ultrasound is recommended. The report was drafted by Fatuma Teresa MD (vice president digital strategist) 03/01/2025 7:58 AM. Shira Carranza MD have personally reviewed and interpreted this examination/study. > Interpreting Provider: Shira Hayward MD on 03/01/2025 10:50 AM Narrative 03/01/2025 10:50 AM CDT PROCEDURE: CT KIDNEYS WWO CONTRAST, CT PELVIS W CONTRAST, DATE/TIME OF EXAM: 03/01/2025 7:50 AM, LOCATION [facility] INDICATION: N28.89: Renal mass R31.0: Gross hematuria ADDITIONAL CLINICAL INFORMATION: Ordering Provider Reason For Exam: renal mass eval COMPARISON: None. TECHNIQUE: CT of the abdomen and pelvis was performed prior to and after the uneventful administration of 100 mL of Isovue 370 intravenous contrast according to a renal protocol. Multi-planar reconstructions, MIP reformats, and post processed 3-D images were produced. Findings: Lower Chest: Bilateral lung bases atelectasis. Mosaic attenuation pattern in the visualized part of the lung which may represent small airway disease. Liver: Normal. Gallbladder and Bile Ducts: Normal. Spleen: 1.1 cm in the superior-lateral aspect of the spleen and 0.7 cm in the inferior aspect of the spleen hypoattenuating lesions, likely representing cysts. Pancreas: Normal. Adrenals: Normal. Right Genitourinary Kidney: No calculi. A few hypoattenuating lesions measuring up to 1.5 cm (series 9 image 68), likely representing cysts. Ureter: No calculi. Obstruction/Hydronephrosis: None. 2 accessory right renal arteries are seen. Left Genitourinary Kidney: 5 mm nonobstructive stone in the lower pole of left kidney. A hypoattenuating lesion measuring up to 3.3 cm (series 9 image 81), has slightly higher density than simple fluid. A few additional subcentimeter hypoattenuating lesions in the left kidney, likely representing cyst. Ureter: No calculi. Obstruction/Hydronephrosis: None. Urinary Bladder: No calculi. Gastrointestinal: Small hiatal hernia. The visualized loops of small bowel are unremarkable. Colonic diverticulosis without evidence of diverticulitis is seen. Mesentery/Peritoneum/Retroperitoneum: No free intraperitoneal air. No free fluid in the abdomen or pelvis. Bladder: Normal. Reproductive Organs: The uterus is absent. Vasculature: Atherosclerotic calcification of the aorta and its branch vessels. Bones: Bone windows demonstrate no suspicious lytic or blastic lesions. The visible osseous structures are intact. Degenerative changes are seen in the spine. Grade 1 anterolisthesis at L4-5. Soft tissues: Normal. Procedure Note Rowan Hayward MD - 03/01/2025 PROCEDURE: CT KIDNEYS WWO CONTRAST, CT PELVIS W CONTRAST, DATE/TIME OF EXAM: 03/01/2025 7:50 AM, LOCATION [facility] INDICATION: N28.89: Renal mass R31.0: Gross hematuria ADDITIONAL CLINICAL INFORMATION: Ordering Provider Reason For Exam: renal mass eval COMPARISON: None. TECHNIQUE: CT of the abdomen and pelvis was performed prior to and after the uneventful administration of 100 mL of Isovue 370 intravenouscontrast according to a renal protocol. Multi-planar reconstructions, MIPreformats, and post processed 3-D images were produced. Findings: Lower Chest: Bilateral lung bases atelectasis. Mosaic attenuation pattern in the visualized part of the lung which may represent small airway disease. Liver: Normal. Gallbladder and Bile Ducts: Normal. Spleen: 1.1 cm in the superior-lateral aspect of the spleen and 0.7 cm in the inferior aspect of the spleen hypoattenuating lesions, likelyrepresenting cysts. Pancreas: Normal. Adrenals: Normal. Right Genitourinary Kidney: No calculi. A few hypoattenuating lesions measuring up to 1.5 cm (series 9 image 68), likely representing cysts. Ureter: No calculi. Obstruction/Hydronephrosis: None. 2 accessory right renal arteries are seen. Left Genitourinary Kidney: 5 mm nonobstructive stone in the lower pole of left kidney. A hypoattenuating lesion measuring up to 3.3 cm (series 9 image 81), has slightly higher density than simple fluid. A few additionalsubcentimeter hypoattenuating lesions in the left kidney, likely representing cyst. Ureter: No calculi. Obstruction/Hydronephrosis: None. Urinary Bladder: No calculi. Gastrointestinal: Small hiatal hernia. The visualized loops of small bowel are unremarkable. Colonic diverticulosis without evidence of diverticulitis is seen. Mesentery/Peritoneum/Retroperitoneum: No free intraperitoneal air. No free fluid in the abdomen or pelvis. Bladder: Normal. Reproductive Organs: The uterus is absent. Vasculature: Atherosclerotic calcification of the aorta and its branch vessels. Bones: Bone windows demonstrate no suspicious lytic or blastic lesions. The visible osseous structures are intact. Degenerative changes are seen inthe spine. Grade 1 anterolisthesis at L4-5. Soft tissues: Normal. Impression: 1.5 mm nonobstructive stone in the lower pole of the left kidney. 2.A hypoattenuating lesion measuring up to 3.3 cm in the left kidney,has slightly higher density than simple fluid. Evaluation with ultrasound is recommended. The report was drafted by Fatuma Teresa MD (vice president digital strategist) 03/01/2025 7:58 AM. Shira Carranza MD have personally reviewed and interpreted this examination/study. > Interpreting Provider: Shira Hayward MD on 03/01/2025 10:50 AM Brian Varela MD CT ORDERABLES Final Result * CT Kidneys Wwo Contrast (03/01/2025 7:50 AM CDT) Anatomical Region Laterality Modality Abdomen Computed Tomogra phy 03/01/2025 7:58 AM CDT Impressions 03/01/2025 10:50 AM CDT Impression: 1.5 mm nonobstructive stone in the lower pole of the left kidney. 2.A hypoattenuating lesion measuring up to 3.3 cm in the left kidney, has slightly higher density than simple fluid. Evaluation with ultrasound is recommended. The report was drafted by Fatuma Teresa MD (vice president digital strategist) 03/01/2025 7:58 AM. Shira Carranza MD have personally reviewed and interpreted this examination/study. > Interpreting Provider: Shira Hayward MD on 03/01/2025 10:50 AM Narrative 03/01/2025 10:50 AM CDT PROCEDURE: CT KIDNEYS WWO CONTRAST, CT PELVIS W CONTRAST, DATE/TIME OF EXAM: 03/01/2025 7:50 AM, LOCATION [facility] INDICATION: N28.89: Renal mass R31.0: Gross hematuria ADDITIONAL CLINICAL INFORMATION: Ordering Provider Reason For Exam: renal mass eval COMPARISON: None. TECHNIQUE: CT of the abdomen and pelvis was performed prior to and after the uneventful administration of 100 mL of Isovue 370 intravenous contrast according to a renal protocol. Multi-planar reconstructions, MIP reformats, and post processed 3-D images were produced. Findings: Lower Chest: Bilateral lung bases atelectasis. Mosaic attenuation pattern in the visualized part of the lung which may represent small airway disease. Liver: Normal. Gallbladder and Bile Ducts: Normal. Spleen: 1.1 cm in the superior-lateral aspect of the spleen and 0.7 cm in the inferior aspect of the spleen hypoattenuating lesions, likely representing cysts. Pancreas: Normal. Adrenals: Normal. Right Genitourinary Kidney: No calculi. A few hypoattenuating lesions measuring up to 1.5 cm (series 9 image 68), likely representing cysts. Ureter: No calculi. Obstruction/Hydronephrosis: None. 2 accessory right renal arteries are seen. Left Genitourinary Kidney: 5 mm nonobstructive stone in the lower pole of left kidney. A hypoattenuating lesion measuring up to 3.3 cm (series 9 image 81), has slightly higher density than simple fluid. A few additional subcentimeter hypoattenuating lesions in the left kidney, likely representing cyst. Ureter: No calculi. Obstruction/Hydronephrosis: None. Urinary Bladder: No calculi. Gastrointestinal: Small hiatal hernia. The visualized loops of small bowel are unremarkable. Colonic diverticulosis without evidence of diverticulitis is seen. Mesentery/Peritoneum/Retroperitoneum: No free intraperitoneal air. No free fluid in the abdomen or pelvis. Bladder: Normal. Reproductive Organs: The uterus is absent. Vasculature: Atherosclerotic calcification of the aorta and its branch vessels. Bones: Bone windows demonstrate no suspicious lytic or blastic lesions. The visible osseous structures are intact. Degenerative changes are seen in the spine. Grade 1 anterolisthesis at L4-5. Soft tissues: Normal. Procedure Note Rowan Hayward MD - 03/01/2025 PROCEDURE: CT KIDNEYS WWO CONTRAST, CT PELVIS W CONTRAST, DATE/TIME OF EXAM: 03/01/2025 7:50 AM, LOCATION [facility] INDICATION: N28.89: Renal mass R31.0: Gross hematuria ADDITIONAL CLINICAL INFORMATION: Ordering Provider Reason For Exam: renal mass eval COMPARISON: None. TECHNIQUE: CT of the abdomen and pelvis was performed prior to and after the uneventful administration of 100 mL of Isovue 370 intravenouscontrast according to a renal protocol. Multi-planar reconstructions, MIPreformats, and post processed 3-D images were produced. Findings: Lower Chest: Bilateral lung bases atelectasis. Mosaic attenuation pattern in the visualized part of the lung which may represent small airway disease. Liver: Normal. Gallbladder and Bile Ducts: Normal. Spleen: 1.1 cm in the superior-lateral aspect of the spleen and 0.7 cm in the inferior aspect of the spleen hypoattenuating lesions, likelyrepresenting cysts. Pancreas: Normal. Adrenals: Normal. Right Genitourinary Kidney: No calculi. A few hypoattenuating lesions measuring up to 1.5 cm (series 9 image 68), likely representing cysts. Ureter: No calculi. Obstruction/Hydronephrosis: None. 2 accessory right renal arteries are seen. Left Genitourinary Kidney: 5 mm nonobstructive stone in the lower pole of left kidney. A hypoattenuating lesion measuring up to 3.3 cm (series 9 image 81), has slightly higher density than simple fluid. A few additionalsubcentimeter hypoattenuating lesions in the left kidney, likely representing cyst. Ureter: No calculi. Obstruction/Hydronephrosis: None. Urinary Bladder: No calculi. Gastrointestinal: Small hiatal hernia. The visualized loops of small bowel are unremarkable. Colonic diverticulosis without evidence of diverticulitis is seen. Mesentery/Peritoneum/Retroperitoneum: No free intraperitoneal air. No free fluid in the abdomen or pelvis. Bladder: Normal. Reproductive Organs: The uterus is absent. Vasculature: Atherosclerotic calcification of the aorta and its branch vessels. Bones: Bone windows demonstrate no suspicious lytic or blastic lesions. The visible osseous structures are intact. Degenerative changes are seen inthe spine. Grade 1 anterolisthesis at L4-5. Soft tissues: Normal. Impression: 1.5 mm nonobstructive stone in the lower pole of the left kidney. 2.A hypoattenuating lesion measuring up to 3.3 cm in the left kidney,has slightly higher density than simple fluid. Evaluation with ultrasound is recommended. The report was drafted by Fatuma Teresa MD (vice president digital strategist) 03/01/2025 7:58 AM. IShira MD have personally reviewed and interpreted this examination/study. > Interpreting Provider: Shira Hayward MD on 03/01/2025 10:50 AM us Brian Varela MD CT ORDERABLES Final Result * DE MSR PVR U&/BLADD CAPCTY US NON (02/28/2025 11:05 AM CDT) Narrative Dolly Pringle RN - 02/28/2025 11:05 AM CDT Dolly Pringle RN 03/02/2025 4:06 PM Bladder Scan performed on 02/28/2025: Results showinmL us Brian Varela MD PROCEDURE/MINOR SURGICAL ORDERAB LES Final Result * URINALYSIS AUTO - POINT OF CARE (AMB) [facility] (02/28/2025 9:42 AM CDT) Glucose UA neg [facility] [address] Bilirubin UA POCT neg [facility] [address] Ketones UA POCT neg [facility] [address] Specific [place] UA 1.[address] [facility] [address] Blood Urine POCT +-10ery/u l [facility] [address] pH UA 6.5 [facility] [address] Protein UA neg [facility] [address] Urobilinogen UA 0.2mg/dl [facility] [address] Nitrite UA neg [facility] [address] WBC UA +-ck/ul [facility] [address] Urine URINE / Unknown 02/28/2025 9 :42 AM CDT us Brian Varela MD LAB - POINT OF CARE ORDERABLES F inal Result [facility] [address] [place] [address], [facility] [phone] * VITAMIN D 25-HYDROXY (02/15/2025 10:25 AM CDT) Pathologist [facility] Vitamin D, 25 Hydroxy 52.3 30.0 - 80.0 ng/mL 02/15/2025 11:21 AM [facility] Comment: The recommendations for 25-Hydroxy Vitamin [...] BLOOD SPECIMEN / Unknown Venipuncture / Unknown 02/15/2025 10:25 AM CDT 02/15/2025 10:34 AM CDT us Zuly Miller MD LAB - CHEMISTRY ORDERABLES Marcia nathan Result [facility] [address] [place] [id number], [facility] [phone] * (ABNORMAL) CBC WITH DIFFERENTIAL (02/15/2025 10:25 AM CDT) [facility] WBC 10.5 4.0 - 10.7 x10E9/L 02/15/2025 10:38 AM [facility] RBC Count 4.64 3.90 - 5.20 x10E12/L 02/15/2025 10:38 AM [facility] Hemoglobin 13.6 11.9 - 15.8 g/dL 02/15/2025 10:38 AM [facility] Hematocrit 41.8 34.8 - 46.1 % 02/15/2025 10:38 AM [facility] MCV 90.1 80.0 - 98.0 fL 02/15/2025 10:38 AM [facility] MCH 29.3 26.7 - 33.6 pg 02/15/2025 10:38 AM [facility] MCHC 32.5 31.7 - 36.3 g/dL 02/15/2025 10:38 AM [facility] RDW-CV 15.7(H) 11.3 - 14.8 % 02/15/2025 10:38 AM [facility] Platelet Count 217 150 - 420 x10E9/L 02/15/2025 10:38 AM [facility] MPV 11.7(H) 7.8 - 11.4 fL 02/15/2025 10:38 AM [facility] Preliminary Absolute Neutrophil 6.83 1.60 - 7.50 x10E9/L 02/15/2025 10:38 AM [facility] Neutrophil % 65.2 41.0 - 74.0 % 02/15/2025 10:38 AM [facility] Lymphocyte % 22.1 17.0 - 47.0 % 02/15/2025 10:38 AM [facility] Monocyte % 7.9 3.0 - 11.0 % 02/15/2025 10:38 AM [facility] Eosinophil % 3.0 0.0 - 7.0 % 02/15/2025 10:38 AM [facility] Basophil % 0.6 0.0 - 1.6 % 02/15/2025 10:38 AM [facility] Immature Granulocytes % 1.2(H) 0.0 - 1.0 % 02/15/2025 10:38 AM [facility] Neutrophil Absolute 6.83 1.60 - 7.50 x10E9/L 02/15/2025 10:38 AM [facility] Lymphocyte Absolute 2.31 1.00 - 4.40 x10E9/L 02/15/2025 10:38 AM [facility] Monocyte Absolute 0.83 0.15 - 1.00 x10E9/L 02/15/2025 10:38 AM [facility] Eosinophil Absolute 0.31 0.00 - 0.60 x10E9/L 02/15/2025 10:38 AM [facility] Basophil Absolute 0.06 0.00 - 0.13 x10E9/L 02/15/2025 10:38 AM [facility] Blood BLOOD SPECIMEN / Unknown Venipuncture / Unknown 02/15/2025 10:25 AM CDT 02/15/2025 10:34 AM CDT us Zuly Miller MD LAB - HEMATOLOGY ORDERABLES Fin al Result [facility] [address] [place] [address], [facility] [phone] * (ABNORMAL) COMPREHENSIVE METABOLIC PANEL (02/15/2025 10:25 AM CDT) BUN 11 7 - 26 mg/dL 02/15/2025 11:03 AM [facility] Creatinine 0.73 0.56 - 0.96 mg/dL 02/15/2025 11:03 AM [facility] Sodium 139 136 - 145 mmol/L 02/15/2025 11:03 AM [facility] Potassium 5.1(H) 3.5 - 4.5 mmol/L 02/15/2025 11:03 AM [facility] Chloride 110(H) 98 - 107 mmol/L 02/15/2025 11:03 AM [facility] CO2 22 22 - 29 mmol/L 02/15/2025 11:03 AM [facility] Glucose 97 70 - 99 mg/dL 02/15/2025 11:03 AM [facility] Calcium 9.5 8.4 - 10.2 mg/dL 02/15/2025 11:03 AM [facility] Protein Total 6.7 6.0 - 8.3 g/dL 02/15/2025 11:03 AM [facility] Albumin 3.3(L) 3.4 - 5.0 g/dL 02/15/2025 11:03 AM [facility] Bilirubin Total 0.4 0.2 - 1.2 mg/dL 02/15/2025 11:03 AM [facility] Alkaline Phosphatase 108 40 - 150 U/L 02/15/2025 11:03 AM [facility] ALT 30 5 - 55 U/L 02/15/2025 11:03 AM [facility] AST 20 5 - 34 U/L 02/15/2025 11:03 AM T [facility] Anion Gap 7 6 - 16 02/15/2025 11:03 AM [facility] BUN/Creatinine Ratio 15 7 - 23 02/15/2025 11:03 AM [facility] Osmolality Calculated 287 275 - 295 mOsm/kg 02/15/2025 11:03 AM [facility] Albumin/Globulin Ratio 1.0(L) 1.1 - 2.3 02/15/2025 11:03 AM [facility] eGFR by CKD-EPI >90 >=90 mL/min/1.7 3 m2 02/15/2025 11:03 AM [facility] Blood BLOOD SPECIMEN / Unknown Venipuncture / Unknown 02/15/2025 10:25 AM CDT 02/15/2025 10:34 AM CDT us Zuly Miller MD LAB - CHEMISTRY ORDERABLES Marcia nathan Result [facility] [address] [place] [id number], [facility] [phone] * ENDOSCOPY, COLON, SCREENING (01/04/2025 10:16 AM [facility]) Report Endoscopy POC Endoscopy Department Report _ Patient Name: Eugenai Pinzon Procedure Date: 01/04/2025 10:16 AM Date [...] bowel preparation was evaluated using the BBPS ([place] Bowel Preparation Scale) with scores of: Right [...] non-young portions. Procedure Code(s): --- Professional --- 10478, Colonoscopy, flexible; with biopsy, single or multiple Diagnosis Code(s): --- Professional --- Z86.010, Personal history of colonic polyps K57.30, Diverticulosis of large intestine without perforation or abscess without bleeding CPT copyright 2021 [employer]. All rights reserved. The codes documented in this report are preliminary and upon glove cutter review may be revised to meet current compliance requirements. Janeth Foreman MD ([place]) 01/04/2025 10:58:05 AM Note Initiated On: 01/04/2025 10:16 AM Number of Addenda: [address] [employer]ATION 01/04/2025 10:1 6 AM [facility] us Janeth Foreman MD GI PROCEDURE ORDERABLES E dited Result - Final [facility] * PATHOLOGY TISSUE (01/04/2025 10:14 AM [facility]) Case Report Surgical Pathology Report Case: [id number] Authorizing Provider: Janeth Foreman MD Collected: 01/04/2025 10:14 AM Ordering Location: [facility] Received: 01/04/2025 12:42 PM Pathologist: Toya Canales MD Specimens: A) - Polyp Gastric, gastric polyps B) - Colon, random colon bx 01/05/2025 12:43 PM [facility] Final Diagnosis Stomach, gastric polyps, biopsy (A): - Fundic gland polyps - No dysplasia Large intestine, random colon, biopsy (B): - No histopathologic abnormality - No lymphocytic or collagenous colitis 01/05/2025 12:43 PM [facility] Microscopic Description and Comment Microscopic examination substantiates the final diagnosis. 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 Operative procedure/findings: EGD - few gastric polyps, resected and retrieved. Colonoscopy - normal colon, biopsy to rule out microscopic colitis. 01/05/2025 12:43 PM [facility] Gross Description The requisition [...] aggregate, submitted in toto in cassette B1. 01/05/2025 12:43 PM [facility] Pathologist Location at [facility] 01/05/2025 12:43 PM [facility] Disclaimer The performance characteristics of all immunohistochemical and indirect immunofluorescence stains (if any) cited in this report were determined by the Histopathology Laboratory of [facility]. Some of these tests were developed by [...] the attending (teaching) pathologist. 01/05/2025 12:43 PM 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 [address] [phone] * EGD (01/04/2025 9:12 AM [facility]) Report Endoscopy POC Endoscopy Department Report __ [...] non-young portions. Procedure Code(s): --- Professional --- 24766, Esophagogastroduode noscopy, flexible, transoral; with transendoscopic balloon dilation of esophagus (less than 30 mm diameter) Diagnosis Code(s): --- Professional --- K31.7, Polyp of stomach and duodenum K31.89, Other diseases of stomach and duodenum R13.10, Dysphagia, unspecified CPT copyright 2021 [employer]. All rights reserved. The codes documented in this report are preliminary and upon glove cutter review may be revised to meet current compliance requirements. Janeth Foreman MD ([place]) 01/04/2025 10:24:09 AM Note Initiated On: 01/04/2025 9:12 AM Number of Addenda: [address] PROVATION 01/04/2025 9:12 AM CEREAL CHEMIST Janeth Foreman MD GI PROCEDURE ORDERABLES E dited Result - Final [facility] PROVATION * (ABNORMAL) MAMMO BILAT DIAGNOSTIC (06/07/2020 9:10 [...] COMPARISON: Multiple prior mammograms, most recently 2019 [facility] HISTORY: 59-year-old female with CHEK 2 [...] increased slightly in size when compared to [facility] imaging ultrasound 08/01/2016. There is no axillary adenopathy. us Jnenifer Roy MD MAMMO ORDERABLES Final Res ult from Last 3 Months or Most Recently Relevant to Health Maintenance Insurance [facility] MANAGED MEDICARE ADV Advance Directives * Full Code (Latest Code Status on File) Date Activated Date Inactivated Comments 09/09/2018 6:14 PM 09/10/2018 6:28 PM Care Teams Candy Starch Mold Printer Relationship Specialty Start Date End Date Ayan Orozco, GERI-SUPERVISOR PIG MACHINE [address] [place] [address] PCP - General Nurse Practitioner 02/22/25 Zuly Miller MD [address] [address] Hematology and Oncology 02/17/24
--- OUTSIDE RECORDS SUMMARY | 2025-03-24 13:53 | XMS_ITS | Encounter Summary ---
Author Organization [employer] Address [address] [place] [address] Care Team Providers Care Selvage Machine Operator Name Role Phone Rod Buckner PA-C Primary Care Provide r Encounter Details Date Type Department Care Team (Late st Contact Info) Description 05/04/2003 Outpatient Historical Division of Neurology [address] [address] Armida Mendez MD [address] [facility] [address] [place] [address] Social History Tobacco Use Types Packs/Day Years Used Date Smoking Tobacco: Never Assessed Comments Unknown Sex and Gender Information Value Date Recorded Sex Assigned at Not on file Legal Sex 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
--- OUTSIDE RECORDS SUMMARY | 2025-03-24 13:53 | XMS_ITS | Encounter Summary ---
Author Organization [facility] Address [address] [place] [address] Care Team Providers Care Technical Mgr Name Role Phone Rod Buckner PA-C Primary Care Provide r Encounter Details Date Type Department Care Team (Latest Contact Info) Description 07/12/2008 Outpatient Historical [facility] NE[facility]O PSYCHOLOG[facility] Stella Rutherford, PhD Dept. of Neuropsychology [address] [place] [address] Multiple Sclerosis (CMS/HCC) Social History Tobacco Use Types Packs/Day Years Used Date Smoking Tobacco: Never Assessed Comments Unknown Sex and Gender Information Value Date Recorded Sex Assigned at Not on file Legal Sex Female 5:09 AM SUPERVISOR DRAWING Gender Identity Not on file Sexual Orientation Not on file documented as of this encounter Plan of Treatment Not on file documented as of this encounter Visit Diagnoses Diagnosis Multiple sclerosis (CMS/HCC) Multiple sclerosis documented in this encounter Care Teams Technical Mgr Relationship Specialty Start Date End Date Rod Buckner PA-C PCP - General Physician Crematorium Operator 10/05/20 documented as of this encounter
--- OUTSIDE RECORDS SUMMARY | 2025-03-24 13:53 | XMS_ITS | Encounter Summary ---
Author Organization [facility] Address [address] [place] [address] Care Team Providers Care Animal Control Officer Name Role Phone Rod Buckner PA-C Primary Care Provide r Encounter Details Date Type Department Care Team (Late st Contact Info) Description 08/19/2004 Outpatient Historical [facility] MRI DEPT Armida Mendez MD [address] [facility] [address] [place] [phone] MULTIPLE SCLEROSIS (CMS/HCC) (Primary Dx) Social History Tobacco Use Types Packs/Day Years Used Date Smoking Tobacco: Never Assessed Comments Unknown Sex and Gender Information Value Date Recorded Sex Assigned at Not on file Legal Sex Female 5:09 AM TOBACCO SAMPLER Gender Identity Not on file Sexual Orientation Not on file documented as of this encounter Plan of Treatment Not on file documented as of this encounter Visit Diagnoses Diagnosis Multiple sclerosis (CMS/HCC)- Primary Multiple sclerosis documented in this encounter Care Teams Animal Control Officer Relationship Specialty Start Date End Date Rod Buckner PA-C PCP - General Physician Meat Stock Clerk 10/05/20 documented as of this encounter
--- OUTSIDE RECORDS SUMMARY | 2025-03-24 13:53 | XMS_ITS | Encounter Summary ---
Author Organization [facility] Address [address] [place] [address] Care Team Providers Care Tongue And Groove Machine Operator Name Role Phone Rdo Buckner PA-C Primary Care Provide r Encounter Details Date Type Department Care Team (Late st Contact Info) Description 06/06/[address] [facility] Sports Rehabilitation [address] [place] [address] Armida Mendez MD [address] [facility] [address] [address] Social History Tobacco Use Types Packs/Day Years Used Date Smoking Tobacco: Never Assessed Comments Unknown Sex and Gender Information Value Date Recorded Sex Assigned at Not on file Legal Sex Female 5:09 AM FLEET SERVICE CLERK Gender Identity Not on file Sexual Orientation Not on file documented as of this encounter Plan of Treatment Not on file documented as of this encounter Visit Diagnoses Not on filedocumented in this encounter Care Teams Tongue And Groove Machine Operator Relationship Specialty Start Date End Date Rod Buckner PA-C PCP - General Physician Can Coverer 10/05/20 documented as of this encounter
--- OUTSIDE RECORDS SUMMARY | 2025-03-24 13:53 | XMS_ITS | Encounter Summary ---
Author Organization [facility] Address [address] [place] [address] Care Team Providers Care Bus Attendant Name Role Phone Rod Buckner PA-C Primary Care Provide r Encounter Details Date Type Department Care Team (Latest Contact Info) Description 11/07/2008 Outpatient Historical [facility] González Roy MD [address] [place] [phone] Unspecified Asthma Social History Tobacco Use Types Packs/Day Years Used Date Smoking Tobacco: Never Assessed Comments Unknown Sex and Gender Information Value Date Recorded Sex Assigned at Not on file Legal Sex Female 5:09 AM TREASURY AGENT Gender Identity Not on file Sexual Orientation Not on file documented as of this encounter Plan of Treatment Not on file documented as of this encounter Visit Diagnoses Diagnosis Unspecified asthma(493.90) Unspecified asthma documented in this encounter Care Teams Bus Attendant Relationship Specialty Start Date End Date Rod Buckner PA-C PCP - General Physician Director Paid Media 10/05/20 documented as of this encounter
--- OUTSIDE RECORDS SUMMARY | 2025-03-24 13:53 | XMS_ITS | Encounter Summary ---
Author Organization [employer] Address [address] [place] [address] Care Team Providers Care Sheet Cutter Name Role Phone Rod Buckner PA-C Primary Care Provide r Encounter Details Date Type Department Care Team (Latest Contact Info) Description 11/07/2008 Outpatient Historical [facility] González Roy MD [address] [place] [phone] Unspecified Asthma Social History Tobacco Use Types Packs/Day Years Used Date Smoking Tobacco: Never Assessed Comments Unknown Sex and Gender Information Value Date Recorded Sex Assigned at Not on file Legal Sex Female 5:09 AM BLOW MOLD TECHNICIAN Gender Identity Not on file Sexual Orientation Not on file documented as of this encounter Plan of Treatment Not on file documented as of this encounter Procedures Procedure Name Priority Date/Time Associated Diagnosis Comments BLOOD GAS ARTERIAL WITH HGB & HCT Routine 11/07/2008 9:10 AM BLOW MOLD TECHNICIAN documented in this encounter Results * BLOOD GAS ARTERIAL WITH HGB & HCT (11/07/2008 9:10 AM BLOW MOLD TECHNICIAN) O2 CONC ARTERIAL 21 [facility] FO2HB ABG 96 94 - 98 % [facility] BASE EXCESS ABG -0.8 -2.0 - 3.0 mmol/L [facility] HEMATOCRIT ABG 43.0 35.5 - 44.0 % [facility] PO2 ARTERIAL 87 83 - 108 mm Hg [facility] PH ARTERIAL 7.41 7.35 - 7.45 [facility] SO2 ABG 97 95 - 99 % [facility] HCO3 ARTERIAL 23 22 - 26 mmol/L [facility] HEMOGLOBIN ABG 14.0 11.8 - 14.8 g/dL [facility] PCO2 ARTERIAL 37 35 - 48 mm Hg [facility] Arterial blood specimen (specimen) 11/07/2008 9:10 AM BLOW MOLD TECHNICIAN 11/07/2008 9:29 AM BLOW MOLD TECHNICIAN us González Roy MD ABG ORDERABLES Final Result Performing Organization Address City/State/[facility] Co de Phone Number INTERFACE SYSTEM Refer to clinic/hospital department [facility] CLIA# [id number] [address] [place] [address] documented in this encounter Visit Diagnoses Diagnosis Unspecified asthma(493.90) Unspecified asthma documented in this encounter Care Teams Sheet Cutter Relationship Specialty Start Date End Date Rod Buckner PA-C PCP - General Physician Sfdc Technical Architect 10/05/20 documented as of this encounter
--- OUTSIDE RECORDS SUMMARY | 2025-03-24 13:53 | XMS_ITS | Encounter Summary ---
Author Organization [employer] Address [address] [place] [address] Care Team Providers Care Insurance Sales Manager Name Role Phone Rod Buckner PA-C Primary Care Provide r Encounter Details Date Type Department Care Team (Late st Contact Info) Description 08/06/2004 Outpatient Historical Division of Neurology [address] [address] Armida Mendez MD [address] [facility] [address] [place] [address] Social History Tobacco Use Types Packs/Day Years Used Date Smoking Tobacco: Never Assessed Comments Unknown Sex and Gender Information Value Date Recorded Sex Assigned at Not on file Legal Sex Female 5:09 AM GREEN LUMBER GRADER Gender Identity Not on file Sexual Orientation Not on file documented as of this encounter Plan of Treatment Not on file documented as of this encounter Visit Diagnoses Not on filedocumented in this encounter Care Teams Insurance Sales Manager Relationship Specialty Start Date End Date Rod Buckner PA-C PCP - General Physician Adult Daycare Coordinator 10/05/20 documented as of this encounter
--- OUTSIDE RECORDS SUMMARY | 2025-03-24 13:53 | XMS_ITS | Referral Summary ---
Author Organization [address] Address [address] [place] [address] Care Team Providers Care School Photograph Editor Name Role Phone Gail Wyatt MD Unavailable [phone] Lobito Gonzalez DO Primary Care Provider [phone] Encounters Date Type Department Care Team Description 03/13/2025 Telephone [facility] [address] [facility] [address] [place] [phone] Janeth Escoto RN 03/09/2025 10:00 AM CDT Office Visit [facility] [address] [facility] [address] [place] [phone] Antony Brennan MD Multiple sclerosis (CMS/HCC) (HCC) (Primary Dx); Neurogenic bladder; Migraine without aura and without status migrainosus, not intractable; Renal mass, left; Malignant neoplasm of upper-outer quadrant of left breast in female, estrogen receptor positive (HCC) from Last 3 Months Allergies Active Allergy [...] Camphor-Methyl Salicylate-Soap Nausea And Vomiting Low 02/04/2017 [place] Oil Nausea And Vomiting Medium 01/28/2017 Cefuroxime [...] Neomycin Unknown Medium 06/12/2015 Other reaction(s): Unknown Rqmqonhg-Obcdfskkh-Haqzbu ine Rash Medium 01/28/2017 Nitrate Analogues Unknown [...] tablets (15 mg total) by mouth nightly 018 Active dilTIAZem CD/XR/XT (CARDIZEM CD,DILACOR XR) 120 mg 24 hr capsule Take 1 capsule (120 mg total) by mouth daily Active sucralfate (CARAFATE) suspension 1 gram/10 mL TAKE 10 ML BY MOUTH 3 TIMES DAILY 019 Active donepeziL (ARICEPT) 10 mg tablet Active [...] Active SUMAtriptan (IMITREX) 6 mg/0.5 mL injection Active furosemide (LASIX) 40 mg tablet Active [...] as needed for wheezing 54 g 3 Active exemestane (AROMASIN) 25 mg tablet TAKE [...] Cancer Staging:Clinical:Stage IA(cT1b, cN0(sn), cM0, G1, ER+, NH+, HER2-) - Signed by Gail Wyatt MD [...] Tamsulosin Assessment & Plan (12/08/2019 10:21 AM ENVIRONMENTAL REMEDIATION ENGINEER): Desipramine Tamsulosin Assessment & Plan (05/24/2019 [...] discussed. Assessment & Plan (12/08/2019 10:20 AM ENVIRONMENTAL REMEDIATION ENGINEER): Continue Emgality monthly Continue Botox Should [...] depression Assessment & Plan (12/08/2019 10:36 AM ENVIRONMENTAL REMEDIATION ENGINEER): Continue following with Dr. Oviedo Asthma [...] hypercholesterolemia 09/11/2011 Atherosclerotic heart diseas e of [place] coronary artery without angina pectoris 09/10/2011 Edema 09/10/2011 Essential (primary) hypertension 09/10/2011 Heart failure, unspecified ([facility]/HCC) 09/10/2011 Multiple sclerosis ([facility]) 12/07/2008 Assessment & [...] did go to [facility] in the past, but left when she [...] that she completed MRI imaging at an [facility] in September 2022 but [...] discussed. Assessment & Plan (12/08/2019 10:31 AM ENVIRONMENTAL REMEDIATION ENGINEER): Discussed the option of oral medication [...] T1bN0(i-)M0, stage IA. ER pos 100% (strong), NH pos 100% (strong), Her-2 neg (0 on [...] on file Legal Sex Female 7:38 PM ENVIRONMENTAL REMEDIATION ENGINEER Gender Identity Female 06/29/2020 2:02 PM CDT Sexual Orientation Not on file Last Filed Vital Signs Vital Sign Reading Time Taken Comments Blood Pressure 112/70 03/09/2025 10:16 AM CDT Pulse 88 03/09/2025 10:16 AM CDT Temperature 36.7 C (98 F) 03/09/2025 10:16 AM CDT Respiratory Rate 20 12/08/2024 11:1 4 AM ENVIRONMENTAL REMEDIATION ENGINEER Oxygen Saturation 96% 03/09/2025 10: 16 AM CDT Inhaled Oxygen Concentration - - Weight 106.8 kg (235 lb 6.4 oz) 025 10:16 AM CDT Height 160 cm (5' 3 ) 03/09/2025 10:16 AM CDT Body Mass Index 41.7 03/09/2025 10:16 AM CDT Plan of Treatment Not on file Procedures Procedure Name Priority Date/Time Associated Diagnosis Comments DEXA AXIAL SKELETON BONE DENSITY 1 OR MORE SITES Schedule Routine, Read Routine (OP Routine) 05/25/2023 10:54 AM CDT Malignant neoplasm of upper-outer quadrant of left breast in female, estrogen receptor positive (HCC) rn long term care (current) use of aromatase inhibitors HEPATITIS PANEL, ACUTE Routine 12/22/2018 1:58 PM ENVIRONMENTAL REMEDIATION ENGINEER from Last 3 Months or Most Recently Relevant to Health Maintenance Results * Dexa Axial Skeleton Bone Density 1 or 2 Site (05/25/2023 10:54 AM CDT) Anatomical Region Laterality Modality Body N/A Radiographic Ynes ging Narrative 05/27/2023 3:40 PM CDT Patient Name: Eugenia Pinzno Date of : 1960 Date of scan: 05/25/2023 Bone mineral density was performed on a [employer] Discovery Densitometer. Based on machine cross-calibration and [...] mineral density scan were prepared by Dayanna Ahn(R)(M)(BD) CBDT who is accredited by the International Society of Clinical Densitometry. The overall patient assessment and scan interpretation were performed by Anibal Blank MD who is certified by the International Society of Clinical Densitometry. [id number] Gail Wyatt MD IM DXA PROCEDURES F inal Result * Hepatitis panel, acute (12/22/2018 1:58 PM ENVIRONMENTAL REMEDIATION ENGINEER) Hep A IgM NON-REACTIVE NON-REAC TIVE [facility] [place] [facility] [place] Comment: WE RECEIVED YOUR HANDWRITTEN TEST ORDER AND PERFORMED AN ACUTE HEPATITIS PANEL. IF THIS IS NOT WHAT YOU INTENDED TO ORDER, PLEASE CONTACT YOUR LOCAL GOLD ASSAYER IMMEDIATELY SO THAT WE CAN ADJUST OUR [...] INTENDED TO ORDER, PLEASE CONTACT YOUR LOCAL GOLD ASSAYER IMMEDIATELY SO THAT WE CAN ADJUST OUR BILLING APPROPRIATELY. YOU MAY ALSO INQUIRE ABOUT ALTERNATIVE OR ADDITIONAL TESTING. Hep B core IgM NON-REACTIVE NON-REAC TIVE [facility] [place] [facility] [place]: WE RECEIVED YOUR HANDWRITTEN TEST ORDER AND PERFORMED AN ACUTE HEPATITIS PANEL. IF THIS IS NOT WHAT YOU INTENDED TO ORDER, PLEASE CONTACT YOUR LOCAL GOLD ASSAYER IMMEDIATELY SO THAT WE CAN ADJUST OUR [...] INTENDED TO ORDER, PLEASE CONTACT YOUR LOCAL GOLD ASSAYER IMMEDIATELY SO THAT WE CAN ADJUST OUR BILLING APPROPRIATELY. YOU MAY ALSO INQUIRE ABOUT ALTERNATIVE OR ADDITIONAL TESTING. 12/22/2018 1:58 PM ENVIRONMENTAL REMEDIATION ENGINEER 12/22/2018 2:01 PM ENVIRONMENTAL REMEDIATION ENGINEER Narrative Resulting Agency Comment Performing Organization Information: Site ID: [id number] Name: [facility] Address: [address] [place] [address] Director: Amandeep Suárez D.O., MPH Antony Brennan MD LAB MICROBIOLOGY - GENERAL OR DERABLES Final Result Performing Organization Address City/State[facility] Co de Phone Number [facility] [place] [facility] [place] from Last 3 Months or Most Recently Relevant to Health Maintenance Insurance [facility] MEDICARE ADVANTAGE MEDICARE ADVANTAGE Care Teams School Photograph Editor Relationship Specialty Start Date End Date Lobito Gonzalez DO [address] [facility] [address] [place] [address] PCP - General Internal Medicine 03/09/25 Gail Wyatt MD [address] [place] [address] Medical Oncologist/Car Starter Medical Oncology 07/23/22
--- OUTSIDE RECORDS SUMMARY | 2025-03-24 13:53 | XMS_ITS | Encounter Summary ---
Author Organization [facility] Address [address] [place] [address] Care Team Providers Care Golf Cart Repairer Name Role Phone Rod Buckner PA-C Primary Care Provide r Encounter Details Date Type Department Care Team (Late st Contact Info) Description 10/16/2008 Outpatient Historical [facility] Hand Therapy [address] [place] [address] Armida Mendez MD [address] [facility] [address] [place] [address] Social History Tobacco Use Types Packs/Day Years Used Date Smoking Tobacco: Never Assessed Comments Unknown Sex and Gender Information Value Date Recorded Sex Assigned at Not on file Legal Sex Female 5:09 AM HOSPICE EXECUTIVE DIRECTOR Gender Identity Not on file Sexual Orientation Not on file documented as of this encounter Plan of Treatment Not on file documented as of this encounter Visit Diagnoses Not on filedocumented in this encounter Care Teams Golf Cart Repairer Relationship Specialty Start Date End Date Rod Buckner PA-C PCP - General Physician Fondant Cooker 10/05/20 documented as of this encounter
--- OUTSIDE RECORDS SUMMARY | 2025-03-24 13:53 | XMS_ITS | Encounter Summary ---
Author Organization [employer] Address [address] [place] [address] Care Team Providers Care Motor Equipment Sergeant Name Role Phone Rod Buckner PA-C Primary Care Provide r Encounter Details Date Type Department Care Team (Late st Contact Info) Description 08/22/2005 Outpatient Historical Division of Neurology [address] [address] Armida Mendez MD [address] [facility] [address] [place] [address] Social History Tobacco Use Types Packs/Day Years Used Date Smoking Tobacco: Never Assessed Comments Unknown Sex and Gender Information Value Date Recorded Sex Assigned at Not on file Legal Sex Female 5:09 AM MEDICAL RECORDS AUDITOR Gender Identity Not on file Sexual Orientation Not on file documented as of this encounter Plan of Treatment Not on file documented as of this encounter Visit Diagnoses Not on filedocumented in this encounter Care Teams Motor Equipment Sergeant Relationship Specialty Start Date End Date Rod Buckner PA-C PCP - General Physician Quality Systems Specialist 10/05/20 documented as of this encounter
--- OUTSIDE RECORDS SUMMARY | 2025-03-24 13:53 | XMS_ITS | Encounter Summary ---
Author Organization [employer] Address [address] [place] [address] Care Team Providers Care Gastroenterologist Name Role Phone Rod Buckner PA-C Primary Care Provide r Encounter Details Date Type Department Care Team (Late st Contact Info) Description 04/08/2006 Outpatient Historical Division of Neurology [address] [address] Armida Mendez MD [address] [facility] [address] [place] [address] Social History Tobacco Use Types Packs/Day Years Used Date Smoking Tobacco: Never Assessed Comments Unknown Sex and Gender Information Value Date Recorded Sex Assigned at Not on file Legal Sex Female 5:09 AM ANIMAL TRAINER SUPERVISOR Gender Identity Not on file Sexual Orientation Not on file documented as of this encounter Plan of Treatment Not on file documented as of this encounter Visit Diagnoses Not on filedocumented in this encounter Care Teams Gastroenterologist Relationship Specialty Start Date End Date Rod Buckner PA-C PCP - General Physician Supervisor Brake Repair 10/05/20 documented as of this encounter
--- OUTSIDE RECORDS SUMMARY | 2025-03-24 13:53 | XMS_ITS | Encounter Summary ---
Author Organization [employer] Address [address] [place] [address] Care Team Providers Care Channel Turner Name Role Phone Rod Buckner PA-C Primary Care Provide r Encounter Details Date Type Department Care Team (Late st Contact Info) Description 02/08/2004 Outpatient Historical Division of Neurology [address] [address] Armdia Mendez MD [address] [facility] [address] [place] [address] Social History Tobacco Use Types Packs/Day Years Used Date Smoking Tobacco: Never Assessed Comments Unknown Sex and Gender Information Value Date Recorded Sex Assigned at Not on file Legal Sex Female 5:09 AM ROLLER SKATER Gender Identity Not on file Sexual Orientation Not on file documented as of this encounter Plan of Treatment Not on file documented as of this encounter Visit Diagnoses Not on filedocumented in this encounter Care Teams Channel Turner Relationship Specialty Start Date End Date Rod Buckner PA-C PCP - General Physician Contact Lens Polisher 10/05/20 documented as of this encounter
--- OUTSIDE RECORDS SUMMARY | 2025-03-24 13:53 | XMS_ITS | Encounter Summary ---
Author Organization [facility] Address [address] [place] [address] Care Team Providers Care Core Maker Name Role Phone Rod Buckner PA-C Primary Care Provide r Zuly Miller MD Unavailable [phone] Ayan Orozco TIMBER SUPERVISOR-AEROLOGIST Primary Care Provider Reason for Visit * Reason Onset Date Comments Appointment 03/29/2021 Encounter Details Date Type Department Care Team (Late st Contact Info) Description 03/29/2021 Telephone [facility] [address] [place] [address] Bebe Faulkner MD [address] [facility] [address] [place] [address] Appointment Social History Tobacco Use [...] on file Legal Sex Female 12:42 PM OBIEE CONSULTANT Gender Identity Not on file Sexual Orientation Not on file documented as of this encounter Functional Status * Is person deaf or have serious hearing difficulty? Answer Date of Assessment Author No 09/10/2018 4:23 PM CDT Nay Edwards RN * Is person blind or have serious difficulty seeing? Answer Date of Assessment Author No 09/10/2018 4:23 PM CDT Nay Edwards RN * Does person have serious difficulty walking/climbing stairs? Answer Date of Assessment Author No 09/10/2018 4:23 PM ALMAT Nay Edwards RN * Does person have difficulty dressing/bathing? Answer Date of Assessment Author No 09/10/2018 4:23 PM ALMAT Nay Edwards RN * Does person have difficulty doing errands alone? Answer Date of Assessment Author No 09/10/2018 4:23 PM ALMAT Nay Edwards RN documented as of this encounter Mental Status * Does person have difficulty concentrating/remembering/making decisions? Answer Entry Date Author No 09/10/2018 4:23 PM Nay Linn RN documented in this encounter Miscellaneous Notes * Telephone Encounter - Emigdio Bakerharrison Castaneda - 03/29/2021 3:05 PM CDT DIAGNOSIS FOR VISIT ABSCESS OF NIPPLES AND BREAST PATIENT CALL BACK NUMBER [phone] IS THE PATIENT ESTABLISHED NO IS THE PATIENT NEW YES DOES THE PATIENT NEED IMAGING WES IS THE APPOINTMENT MORE THAN 2-3 WEEKS OUT? 5.19 IS NEXT AVAIL. WHEN SHOULD I SCHEDULE? documented in this encounter Plan of Treatment Upcoming Encounters Date Type Department Care Team (Late st Contact Info) Description 04/12/2025 9:30 AM CDT Office Visit [facility] - Urology [address] [facility] [place] [phone] Ni Thapa M, [address] [facility] 2L [place] [phone] 05/17/2025 10:00 AM CDT Appointment [facility] [address] [place] [phone] Lizet Contreras, TIMBER SUPERVISOR-AEROLOGIST [address] [place] [address] 05/31/2025 9:00 AM CDT Office Visit [facility] - GI [address] [facility] [place] [phone] Isai Leon MD [address] [place] [address] 08/16/2025 10:00 AM CDT Appointment [facility] [address] [place] [address] [place] [address] [facility] [address] [place] [address] 08/16/2025 10:40 AM CDT Office Visit [facility] - Hematology/Oncology [address] [place] [phone] Zuly Miller MD [address] [facility] [address] [place] [address] 08/21/2025 11:30 AM CDT Office Visit [facility] - General Surgery [address] [place] [phone] Bebe Faulkner MD [address] [facility] [address] [place] [address] documented as of this encounter Goals Goal Patient Goal Type Associated Problems Recent Progress Patient-Stated? Author Safety General On track( 024 2:13 PM OBIEE CONSULTANT) No Ml Livingston, RN Note: Expected end date: Ongoing Interventions: Your nurse will assess your risk for falls/injury each visit Use appropriate and safe transfer methods Medication Management General On track( 024 2:13 PM OBIEE CONSULTANT) Ml Serra, KIERA Note: Expected end date: Ongoing Interventions: Take all medications as prescribed Let your doctor know right away about any changes in your medications documented as of this encounter Visit Diagnoses Not on filedocumented in this encounter Care Teams Core Maker Relationship Specialty Start Date End Date Rod Buckner PA-C [address] [facility] [address] [place] [address] PCP - General 02/18/19 02/21/25 Ayan Orozco, TIMBER SUPERVISOR-AEROLOGIST [address] [place] [address] PCP - General Nurse Practitioner 02/22/25 Zuly Miller MD [address] [place] [address] Hematology and Oncology 02/17/24 documented as of this encounter
--- OUTSIDE RECORDS SUMMARY | 2025-03-24 13:53 | XMS_ITS | Encounter Summary ---
Author Organization [employer] Address [address] [place] [address] Care Team Providers Care Cardiothoracic Physiotherapist Name Role Phone Rod Buckner PA-C Primary Care Provide r Encounter Details Date Type Department Care Team (Late st Contact Info) Description 10/30/2003 Outpatient Historical Division of Neurology [address] [address] Armida Mendez MD [address] [facility] [address] [place] [address] Social History Tobacco Use Types Packs/Day Years Used Date Smoking Tobacco: Never Assessed Comments Unknown Sex and Gender Information Value Date Recorded Sex Assigned at Not on file Legal Sex Female 5:09 AM DEBONING TEAM LEADER Gender Identity Not on file Sexual Orientation Not on file documented as of this encounter Plan of Treatment Not on file documented as of this encounter Visit Diagnoses Not on filedocumented in this encounter Care Teams Cardiothoracic Physiotherapist Relationship Specialty Start Date End Date Rod Buckner PA-C PCP - General Physician Printing Plate Clerk 10/05/20 documented as of this encounter
--- OUTSIDE RECORDS SUMMARY | 2025-03-24 13:53 | XMS_ITS | Encounter Summary ---
Author Organization [employer] Address [address] [place] [address] Care Team Providers Care Film Developing Machine Operator Name Role Phone Rod Buckner [...] on file Legal Sex Female 5:09 AM INSPECTOR MACHINE CUT GLASS Gender Identity Not on file Sexual Orientation Not on file documented as of this encounter Plan of Treatment Not on file documented as of this encounter Visit Diagnoses Diagnosis Other musculoskeletal symptoms referable to limbs(729.89)- Primary Other musculoskeletal symptoms referable to limbs documented in this encounter Care Teams Film Developing Machine Operator Relationship Specialty Start Date End Date Rod Buckner PA-C PCP - General Physician Department Head [employer] 10/05/20 documented as of this encounter
--- OUTSIDE RECORDS SUMMARY | 2025-03-24 13:53 | XMS_ITS | Encounter Summary ---
Author Organization [facility] Address [address] [place] [address] Care Team Providers Care Rn Hedis Name Role Phone Rod Buckner PA-C Primary Care Provide r Encounter Details Date Type Department Care Team (Late st Contact Info) Description 01/11/2009 Outpatient Historical HIS MRI DEPT Armida Hubbard MD [address] [facility] [address] [place] [address] Social History Tobacco Use Types Packs/Day Years Used Date Smoking Tobacco: Never Assessed Comments Unknown Sex and Gender Information Value Date Recorded Sex Assigned at Not on file Legal Sex Female 5:09 AM HELPER ELECTRICAL Gender Identity Not on file Sexual Orientation Not on file documented as of this encounter Plan of Treatment Not on file documented as of this encounter Procedures Procedure Name Priority Date/Time Associated Diagnosis Comments MRI BRAIN W WO CONTRAST Timed Study 01/11/2009 8:44 AM HELPER ELECTRICAL POC CREATININE Routine 01/11/2009 8:01 AM HELPER ELECTRICAL XR SKULL LESS THAN 4 VW Timed Study 01/11/2009 7:42 AM HELPER ELECTRICAL documented in this encounter Results * MRI BRAIN W WO CONTRAST (01/11/2009 8:44 AM HELPER ELECTRICAL) Anatomical Region Laterality Modality Head Other 01/11/2009 8:44 AM HELPER ELECTRICAL Narrative 01/11/2009 4:40 PM HELPER ELECTRICAL [place] [address] [place], [place] [address] Admit Date: 01/11/2009 EUGENIA PINZON Sex: F Admit Prov: ARMIDA HUBBARD Date: 1960 Primary Care Prov: NICKO GARCIA CMRN: [id number] [id number] [facility] Ordering Prov: N/A Accession Number: [id number] Interpretation MRI BRAIN WITHOUT AND WITH IV [...] SMM Procedure Note Claude Gonzalez - 01/11/2009 [place] [address] [place], [place] [address] Admit Date: 01/11/2009 EUGENIA PINZON Sex: F Admit Prov: ARMIDA HUBBARD Date: 1960 Primary Care Prov: NICKO GARCIA CMRN: [id number] [facility] [id number] IM[facility]ING SERVICES Ordering Prov: N/A Interpretation MRI [...] GONZALEZ 01/11/2009 16:38 Transcribed: 01/11/2009 14:19 [facility] Armida Hubbard MD MR ORDERABLES Final Result * (ABNORMAL) POC CREATININE (01/11/2009 8:01 AM HELPER ELECTRICAL) CREATININE POC 1.0 0.6 - 1.3 mg/dL [facility] Comment: The calculation for the estimated GFR on the i-STAT POC instrument has been changed to correspond to the IDMS-traceable MDRD Study, upon the recommendation of the inclinometer tester of the i-STAT instrument. The change was effective in our laboratory 11/06/2008. The impact of this change to the estimated GFR is minimal. This calculation is used by the main laboratory methodology also. GFR, >60 >=60 mL/min/1.7 sq meter [facility] GFR 59(L) >=60 mL/min/1.7 sq meter [facility] Capillary blood specimen (specimen) 01/11/2009 8:01 AM HELPER ELECTRICAL 01/11/2009 8:01 AM HELPER ELECTRICAL us Armida Hubbard MD POINT OF CARE TESTING Edited INTERFACE SYSTEM Refer to clinic/hospital department [facility] CLIA# [id number] [address] [place] [address] * XR SKULL < 4 VW (01/11/2009 7:42 AM HELPER ELECTRICAL) Anatomical Region Laterality Modality Head Other 01/11/2009 7:42 AM HELPER ELECTRICAL Narrative 01/11/2009 3:14 PM HELPER ELECTRICAL [facility] [address] [place], [place] [address] Admit Date: 01/11/2009 EUGENIA PINZON Sex: F Admit Prov: ARMIDA HUBBARD Date: 1960 Primary Care Prov: NICKO GARCIA CMRN: [id number] [facility] [id number] IM[facility] Ordering Prov: N/A Accession Number: [id number] Interpretation SKULL 2 VIEWS FOR INTRAOCULAR METAL [...] Procedure Note Andreea Hook MD - 01/11/2009 [place] [address] [place], [place] [address] Admit Date: 01/11/2009 EUGENIA PINZON Sex: F Admit Prov: ARMIDA HUBBARD Date: 1960 Primary Care Prov: NICKO GARCIA CMRN: [id number] [facility] [id number] IM[facility]ING SERVICES Ordering Prov: N/A Interpretation SKULL [...] on filedocumented in this encounter Care Teams Rn Hedis Relationship Specialty Start Date End Date Rod Buckner PA-C PCP - General Physician Single Pointed Operator 10/05/20 documented as of this encounter
--- OUTSIDE RECORDS SUMMARY | 2025-03-24 13:53 | XMS_ITS | Encounter Summary ---
Author Organization [facility] Address [address] [place] [address] Care Team Providers Care Tar Heat Exchanger Cleaner Name Role Phone Rod Buckner PA-C Primary Care Provide r Encounter Details Date Type Department Care Team (Latest Contact Info) Description 08/13/2008 Outpatient Historical [facility] NEURO PSYCHOLOGY Stella Rutherford, PhD Dept. of Neuropsychology [address] [place] [address] Multiple Sclerosis (CMS/HCC) Social History Tobacco Use Types Packs/Day Years Used Date Smoking Tobacco: Never Assessed Comments Unknown Sex and Gender Information Value Date Recorded Sex Assigned at Not on file Legal Sex Female 5:09 AM TETRYL DISSOLVER OPERATOR Gender Identity Not on file Sexual Orientation Not on file documented as of this encounter Plan of Treatment Not on file documented as of this encounter Visit Diagnoses Diagnosis Multiple sclerosis (CMS/HCC) Multiple sclerosis documented in this encounter Care Teams Tar Heat Exchanger Cleaner Relationship Specialty Start Date End Date Rod Buckner PA-C PCP - General Physician Refueling Ramp Supervisor 10/05/20 documented as of this encounter
--- OUTSIDE RECORDS SUMMARY | 2025-03-24 13:53 | XMS_ITS | Encounter Summary ---
Author Organization [facility] Address [address] [place] [address] Care Team Providers Care Shipyard Supervisor Name Role Phone Rod Buckner PA-C Primary Care Provide r Encounter Details Date Type Department Care Team (Latest Contact Info) Description 09/14/2008 Outpatient Historical [facility] ST Hand Therapy [address] [place] [address] Armida Mendez MD [address] [facility] [address] [place] [address] Multiple Sclerosis (CMS/HCC) (Primary Dx) Social History Tobacco Use Types Packs/Day Years Used Date Smoking Tobacco: Never Assessed Comments Unknown Sex and Gender Information Value Date Recorded Sex Assigned at Not on file Legal Sex Female 5:09 AM DESIGN CENTER CONSULTANT Gender Identity Not on file Sexual Orientation Not on file documented as of this encounter Plan of Treatment Not on file documented as of this encounter Visit Diagnoses Diagnosis Multiple sclerosis (CMS/HCC)- Primary Multiple sclerosis documented in this encounter Care Teams Shipyard Supervisor Relationship Specialty Start Date End Date Rod Buckner PA-C PCP - General Physician Hand Roller Engraver 10/05/20 documented as of this encounter
--- OUTSIDE RECORDS SUMMARY | 2025-03-24 13:53 | XMS_ITS | Encounter Summary ---
Author Organization [employer] [facility] Address [address] [place] [address] Care Team Providers Care Bottom Sprayer Name Role Phone Rod Buckner PA-C Primary Care Provide r Encounter Details Date Type Department Care Team (Late st Contact Info) Description 11/02/2008 Outpatient Historical HIS MRI DEPT González Roy MD [address] [place] [address] Embolism and Thrombosis of Unspecified Site (CMS/HCC) Social History Tobacco Use Types Packs/Day Years Used Date Smoking Tobacco: Never Assessed Comments Unknown Sex and Gender Information Value Date Recorded Sex Assigned at Not on file Legal Sex Female 5:09 AM ASSOCIATE CURATOR Gender Identity Not on file Sexual Orientation Not on file documented as of this encounter Plan of Treatment Not on file documented as of this encounter Procedures Procedure Name Priority Date/Time Associated Diagnosis Comments US LOW EXT MERLE DUPLEX COMP BILAT Routine 11/02/2008 4:52 PM ASSOCIATE CURATOR CTA CHEST W WO CONTRAST Timed Study 11/02/2008 9:53 AM ASSOCIATE CURATOR POC CREATININE Routine 11/02/2008 9:37 AM ASSOCIATE CURATOR documented in this encounter Results * US LOW EXT MERLE DUPLEX COMP BILAT (11/02/2008 4:52 PM ASSOCIATE CURATOR) Anatomical Region Laterality Modality Lower Extremity Other Narrative 11/02/2008 4:52 PM ASSOCIATE CURATOR [place] [address] [place] [address] [email or web address] Peripheral Venous Study Patient: Eugenia Pinzon Study ID: BLOOD FLOW STUDY Gender: F : 1960 Age: 48 years Race: 1 Room: Bed: Height: Study Date: November 02, 2008 Patient status: Outpatient Weight: Access. #: [id number] POC: Director Blood Bank: [employer] Ordering: Brandon Attending MD: Brandon Johnitting [...] 16:49:47 Procedure Note Provider, Historical - 11/02/2008 [facility] [address] [place] [address] [email or web address] Peripheral Venous Study Patient: Eugenia Pinzon Study ID: BLOOD FLOW STUDY Gender: F : 1960 Age: 48 years Race: 1 Room: Bed: Height: Study Date: November 02, 2008 Patient status: Outpatient Weight: Access. #: [id number] POC: Director Blood Bank: Claudy Ordering: Brandon Attending MD: Brandon Admitting [...] CHEST W WO CONTRAST (11/02/2008 9:53 AM ASSOCIATE CURATOR) Anatomical Region Laterality Modality Chest Other 11/02/2008 9:53 AM ASSOCIATE CURATOR Narrative 11/02/2008 2:41 PM ASSOCIATE CURATOR [facility] [address] [place], [place] [address] Admit Date: 11/02/2008 DRAKE PINZONEVER Joyner Sex: F Admit Prov: GONZÁLEZ ROY Date: 1960 Primary Care Prov: NICKO GARCIA CMRN: [id number] Room: [facility] SSN: [address] [place] [address] IMAGING SERVICES Ordering Prov: N/A Accession Number: [id number] Interpretation CT PULMONARY ANGIOGRAM WITHOUT AND WITH [...] Procedure Note Georgia Rowley MD - 11/02/2008 [facility] [address] [place] [place], [place] [address] Admit Date: 11/02/2008 PINZON EUGENIA L Sex: F Admit Prov: GONZÁLEZ ROY Date: 1960 Primary Care Prov: NICKO GARCIA CMRN: [id number] Room: [facility] SSN: [id number] IMAGING SERVICES Ordering Prov: N/A Interpretation CT [...] Result * POC CREATININE (11/02/2008 9:37 AM ASSOCIATE CURATOR) CREATININE POC 0.8 0.6 - 1.3 mg/dL [facility] GFR, >60 >=60 mL/min/1.7 sq meter [facility] GFR >60 >=60 mL/min/1.7 sq meter [facility] Capillary blood specimen (specimen) 11/02/2008 9:37 AM ASSOCIATE CURATOR 11/02/2008 9:37 AM ASSOCIATE CURATOR us González Roy MD POINT OF CARE TESTING Edited INTERFACE SYSTEM Refer to clinic/hospital department [facility] CLIA# [id number] [address] [facility] [place] [address] documented in this encounter Visit Diagnoses Diagnosis Embolism and thrombosis of unspecified site (CMS/HCC) Embolism and thrombosis of unspecified site documented in this encounter Care Teams Bottom Sprayer Relationship Specialty Start Date End Date Rod Buckner PA-C PCP - General Physician Internal Combustion Engine Subassembler 10/05/20 documented as of this encounter
--- OUTSIDE RECORDS SUMMARY | 2025-03-24 13:54 | XMS_ITS | Encounter Summary ---
Author Organization [employer] Address [address] [place] [address] Care Team Providers Care Radiation Physicist Name Role Phone Rod Buckner PA-C Primary Care Provide r Encounter Details Date Type Department Care Team (Late st Contact Info) Description 02/19/2005 Outpatient Historical Division of Neurology [address] [address] Armida Mendez MD [address] [facility] [address] [place] [address] Social History Tobacco Use Types Packs/Day Years Used Date Smoking Tobacco: Never Assessed Comments Unknown Sex and Gender Information Value Date Recorded Sex Assigned at Not on file Legal Sex Female 5:09 AM BRIM BLOCKER Gender Identity Not on file Sexual Orientation Not on file documented as of this encounter Plan of Treatment Not on file documented as of this encounter Visit Diagnoses Not on filedocumented in this encounter Care Teams Radiation Physicist Relationship Specialty Start Date End Date Rod Buckner PA-C PCP - General Physician Disulfurizer Tender 10/05/20 documented as of this encounter
--- OUTSIDE RECORDS SUMMARY | 2025-03-24 13:54 | XMS_ITS | Encounter Summary ---
Author Organization [employer] Address [address] [place] [address] Care Team Providers Care Nuclear Licensing Engineer Name Role Phone Rod Buckner PA-C Primary Care Provide r Encounter Details Date Type Department Care Team (Late st Contact Info) Description 12/01/2001 Outpatient [facility] Division of Neurology [address] [address] Armida Mendez MD [address] [facility] [address] [place] [address] Social History Tobacco Use Types Packs/Day Years Used Date Smoking Tobacco: Never Assessed Comments Unknown Sex and Gender Information Value Date Recorded Sex Assigned at Not on file Legal Sex Female 5:09 AM ELECTRONIC EQUIPMENT REPAIRER Gender Identity Not on file Sexual Orientation Not on file documented as of this encounter Plan of Treatment Not on file documented as of this encounter Visit Diagnoses Not on filedocumented in this encounter Care Teams Nuclear Licensing Engineer Relationship Specialty Start Date End Date Rod Buckner PA-C PCP - General Physician Rope Rider 10/05/20 documented as of this encounter
--- OUTSIDE RECORDS SUMMARY | 2025-03-24 13:54 | XMS_ITS | Encounter Summary ---
Author Organization [employer] Address [address] [place] [address] Care Team Providers Care Manifest Clerk Name Role Phone Rod Buckner PA-C Primary Care Provide r Encounter Details Date Type Department Care Team (Late st Contact Info) Description 03/12/2000 Outpatient Historical Division of Neurology [address] [address] Armida Mendez MD [address] [facility] [address] [place] [address] Social History Tobacco Use Types Packs/Day Years Used Date Smoking Tobacco: Never Assessed Comments Unknown Sex and Gender Information Value Date Recorded Sex Assigned at Not on file Legal Sex Female 5:09 AM STEEPING PRESS TENDER Gender Identity Not on file Sexual Orientation Not on file documented as of this encounter Plan of Treatment Not on file documented as of this encounter Visit Diagnoses Not on filedocumented in this encounter Care Teams Manifest Clerk Relationship Specialty Start Date End Date Rod Buckner PA-C PCP - General Physician Bilingual Office Assistant 10/05/20 documented as of this encounter
--- OUTSIDE RECORDS SUMMARY | 2025-03-24 13:54 | XMS_ITS | Encounter Summary ---
Author Organization [facility] Address [address] [place] [address] Care Team Providers Care Chain Maker Loom Control Name Role Phone Rod Buckner PA-C Primary Care Provide r Encounter Details Date Type Department Care Team (Late st Contact Info) Description 05/22/2007 Outpatient Historical HIS MRI DEPT Armida Mendez MD [address] [facility] [address] [place] [phone] Multiple Sclerosis (CMS/HCC) (Primary Dx) Social History Tobacco Use Types Packs/Day Years Used Date Smoking Tobacco: Never Assessed Comments Unknown Sex and Gender Information Value Date Recorded Sex Assigned at Not on file Legal Sex Female 5:09 AM SHAPER SET UP OPERATOR Gender Identity Not on file Sexual Orientation Not on file documented as of this encounter Plan of Treatment Not on file documented as of this encounter Visit Diagnoses Diagnosis Multiple sclerosis (CMS/HCC)- Primary Multiple sclerosis documented in this encounter Care Teams Chain Maker Loom Control Relationship Specialty Start Date End Date Rod Buckner PA-C PCP - General Physician Hand Embroiderer 10/05/20 documented as of this encounter
--- OUTSIDE RECORDS SUMMARY | 2025-03-24 13:54 | XMS_ITS | Encounter Summary ---
Author Organization [employer] Address [address] [place] [address] Care Team Providers Care 411 Directory Assistance Operator Name Role Phone Rod Buckner PA-C Primary Care Provide r Encounter Details Date Type Department Care Team (Late st Contact Info) Description 02/02/2001 Outpatient Historical Division of Neurology [address] [address] Armida Mendez MD [address] [facility] [address] [place] [address] Social History Tobacco Use Types Packs/Day Years Used Date Smoking Tobacco: Never Assessed Comments Unknown Sex and Gender Information Value Date Recorded Sex Assigned at Not on file Legal Sex Female 5:09 AM PRIVACY OFFICER Gender Identity Not on file Sexual Orientation Not on file documented as of this encounter Plan of Treatment Not on file documented as of this encounter Visit Diagnoses Not on filedocumented in this encounter Care Teams 411 Directory Assistance Operator Relationship Specialty Start Date End Date Rod Buckner PA-C PCP - General Physician Home Care Manager Rn 10/05/20 documented as of this encounter
--- OUTSIDE RECORDS SUMMARY | 2025-03-24 13:54 | XMS_ITS | Encounter Summary ---
Author Organization [employer] Address [address] [place] [address] Care Team Providers Care Product Assembler Name Role Phone Rod Buckner PA-C Primary Care Provide r Encounter Details Date Type Department Care Team (Latest Contact Info) Description 03/29/2000 Outpatient Historical [facility] Beni Beard V., PhD [address] [place] [address] Multiple sclerosis (CMS/HCC) (Primary Dx) Social History Tobacco Use Types Packs/Day Years Used Date Smoking Tobacco: Never Assessed Comments Unknown Sex and Gender Information Value Date Recorded Sex Assigned at Not on file Legal Sex Female 5:09 AM ORDER EXPEDITER Gender Identity Not on file Sexual Orientation Not on file documented as of this encounter Plan of Treatment Not on file documented as of this encounter Visit Diagnoses Diagnosis Multiple sclerosis (CMS/HCC)- Primary Multiple sclerosis documented in this encounter Care Teams Product Assembler Relationship Specialty Start Date End Date Rod Buckner PA-C PCP - General Physician Do All Operator 10/05/20 documented as of this encounter
--- OUTSIDE RECORDS SUMMARY | 2025-03-24 13:54 | XMS_ITS | Encounter Summary ---
Author Organization [employer] Address [address] [place] [address] Care Team Providers Care Parachute Mender Name Role Phone Rod Buckner PA-C Primary Care Provide r Encounter Details Date Type Department Care Team (Late st Contact Info) Description 04/21/2000 Outpatient Historical Division of Neurology [address] [address] Armida Mendez MD [address] [facility] [address] [place] [phone] Social History Tobacco Use Types Packs/Day Years Used Date Smoking Tobacco: Never Assessed Comments Unknown Sex and Gender Information Value Date Recorded Sex Assigned at Not on file Legal Sex Female 5:09 AM CROWN BUFFER Gender Identity Not on file Sexual Orientation Not on file documented as of this encounter Plan of Treatment Not on file documented as of this encounter Visit Diagnoses Not on filedocumented in this encounter Care Teams Parachute Mender Relationship Specialty Start Date End Date Rod Buckner PA-C PCP - General Physician Projection Printer 10/05/20 documented as of this encounter
--- OUTSIDE RECORDS SUMMARY | 2025-03-24 13:54 | XMS_ITS | Encounter Summary ---
Author Organization [employer] Address [address] [place] [address] Care Team Providers Care Conservation Specialist Name Role Phone Rod Buckner PA-C Primary Care Provide r Encounter Details Date Type Department Care Team (Late st Contact Info) Description 09/27/2007 Outpatient Historical [facility] [address] [facility] [address] [address] Armida Mendez MD [address] [place] [phone] Social History Tobacco Use Types Packs/Day Years Used Date Smoking Tobacco: Never Assessed Comments Unknown Sex and Gender Information Value Date Recorded Sex Assigned at Not on file Legal Sex Female 5:09 AM ORACLE E BUSINESS DEVELOPER Gender Identity Not on file Sexual Orientation Not on file documented as of this encounter Plan of Treatment Not on file documented as of this encounter Visit Diagnoses Not on filedocumented in this encounter Care Teams Conservation Specialist Relationship Specialty Start Date End Date Rod Buckner PA-C PCP - General Physician Slat Grader 10/05/20 documented as of this encounter
--- OUTSIDE RECORDS SUMMARY | 2025-03-24 13:54 | XMS_ITS | Encounter Summary ---
Author Organization [employer] Address [address] [place] [address] Care Team Providers Care Licensed Occupational Therapy Assistant Name Role Phone Rod Buckner PA-C Primary Care Provide r Encounter Details Date Type Department Care Team (Late st Contact Info) Description 05/11/2007 Outpatient Historical Division of Neurology [address] [address] Armida Mendez MD [address] [facility] [address] [place] [address] Social History Tobacco Use Types Packs/Day Years Used Date Smoking Tobacco: Never Assessed Comments Unknown Sex and Gender Information Value Date Recorded Sex Assigned at Not on file Legal Sex Female 5:09 AM DAILY RELEASE AND DUPE PRINTER Gender Identity Not on file Sexual Orientation Not on file documented as of this encounter Plan of Treatment Not on file documented as of this encounter Visit Diagnoses Not on filedocumented in this encounter Care Teams Licensed Occupational Therapy Assistant Relationship Specialty Start Date End Date Rod Buckner PA-C PCP - General Physician Flight Communications Specialist 10/05/20 documented as of this encounter
--- OUTSIDE RECORDS SUMMARY | 2025-03-24 13:54 | XMS_ITS | Encounter Summary ---
Author Organization [employer] Address [address] [place] [address] Care Team Providers Care Interior Mechanic Name Role Phone Rod Buckner PA-C Primary Care Provide r Encounter Details Date Type Department Care Team (Latest Contact Info) Description 02/26/2000 Outpatient Historical [facility] Beni Beard V., PhD [address] [place] [address] Multiple sclerosis (CMS/HCC) (Primary Dx) Social History Tobacco Use Types Packs/Day Years Used Date Smoking Tobacco: Never Assessed Comments Unknown Sex and Gender Information Value Date Recorded Sex Assigned at Not on file Legal Sex Female 5:09 AM GREASE WORKER Gender Identity Not on file Sexual Orientation Not on file documented as of this encounter Plan of Treatment Not on file documented as of this encounter Visit Diagnoses Diagnosis Multiple sclerosis (CMS/HCC)- Primary Multiple sclerosis documented in this encounter Care Teams Interior Mechanic Relationship Specialty Start Date End Date Rod Buckner PA-C PCP - General Physician Java Developer Analyst 10/05/20 documented as of this encounter
--- OUTSIDE RECORDS SUMMARY | 2025-03-24 13:54 | XMS_ITS | Encounter Summary ---
Author Organization [employer] Address [address] [place] [address] Care Team Providers Care Call Box Wirer Name Role Phone Rod Buckner PA-C Primary Care Provide r Encounter Details Date Type Department Care Team (Late st Contact Info) Description 07/21/2000 Outpatient Historical Division of Neurology [address] [address] Armida Mendez MD [address] [facility] [address] [place] [phone] Social History Tobacco Use Types Packs/Day Years Used Date Smoking Tobacco: Never Assessed Comments Unknown Sex and Gender Information Value Date Recorded Sex Assigned at Not on file Legal Sex Female 5:09 AM BIOINFORMATICS ASSISTANT Gender Identity Not on file Sexual Orientation Not on file documented as of this encounter Plan of Treatment Not on file documented as of this encounter Visit Diagnoses Not on filedocumented in this encounter Care Teams Call Box Wirer Relationship Specialty Start Date End Date Rod Buckner PA-C PCP - General Physician Rag Collector 10/05/20 documented as of this encounter
--- OUTSIDE RECORDS SUMMARY | 2025-03-24 13:54 | XMS_ITS | Encounter Summary ---
Author Organization [facility] Address [address] [place] [address] Care Team Providers Care Geospatial Engineer Name Role Phone Rod Buckner PA-C Primary Care Provide r Encounter Details Date Type Department Care Team (Latest Contact Info) Description 05/05/2008 Outpatient Historical [facility] [address] [place] [address] Armida Mendez MD [address] [facility] [address] [place] [address] Multiple Sclerosis (CMS/HCC) (Primary Dx) Social History Tobacco Use Types Packs/Day Years Used Date Smoking Tobacco: Never Assessed Comments Unknown Sex and Gender Information Value Date Recorded Sex Assigned at Not on file Legal Sex Female 5:09 AM 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
--- OUTSIDE RECORDS SUMMARY | 2025-03-24 13:54 | XMS_ITS | Encounter Summary ---
Author Organization [employer] Address [address] [place] [address] Care Team Providers Care Hospice Music Therapy Name Role Phone Rod Buckner PA-C Primary Care Provide r Encounter Details Date Type Department Care Team (Late st Contact Info) Description 10/20/2006 Outpatient Historical Division of Neurology [address] [address] Armida Mendez MD [address] [facility] [address] [place] [address] Social History Tobacco Use Types Packs/Day Years Used Date Smoking Tobacco: Never Assessed Comments Unknown Sex and Gender Information Value Date Recorded Sex Assigned at Not on file Legal Sex Female 5:09 AM TASSEL CLIPPER Gender Identity Not on file Sexual Orientation Not on file documented as of this encounter Plan of Treatment Not on file documented as of this encounter Visit Diagnoses Not on filedocumented in this encounter Care Teams Hospice Music Therapy Relationship Specialty Start Date End Date Rod Buckner PA-C PCP - General Physician Metal Alloy Scientist 10/05/20 documented as of this encounter
--- OUTSIDE RECORDS SUMMARY | 2025-03-24 13:54 | XMS_ITS | CONTINUITY OF CARE DOCUMENT ---
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 daily Zahc Foley RN PRAVACHOL 40 MG ORAL TABLET [...] tablet by mouth three times daily Mickey Husotn VIVELLE 0.1 MG/24HR PTTW active 1 every other day Mickey Huston VITAMIN D 84406 UNIT CAPS active 1 capsule weekly for 8 weeks then 1 every month Mickey Huston SUCRALFATE 1 GM ORAL TABLET active 1 tablet by mouth four times daily Mickey Huston PREVIDENT 56GM active [place] teeth with gel at bedtime Mickey Huston [...] use, averag e drinks per day no [facility] alcohol use, average drinks per day none [facility] smoking status Quit [facility] MENTAL STATUS Date Observation Value Provider assessment [...] Policy type / Coverage type Ilan red democrat ID SOTO [facility] HSTYLE [id number] TREATMENT PLAN Date Name Performer routine Favian [...] microvacular CAD. E CP should be considered. [facility] (01/14/2006) C HOL: 232 (12/26/2008) LDL: [...] microvacular CAD. E CP should be considered. [facility] (01/14/2006) C HOL: 232 (12/26/2008) LDL: [...] microvacular CAD. E CP should be considered. [facility] (01/14/2006) C HOL: 232 (12/26/2008) LDL: [...] microvacular CAD. E CP should be considered. [facility] (01/14/2006) C HOL: 232 (12/26/2008) LDL: [...] microvacular CAD. E CP should be considered. [facility] (01/14/2006) Echocardiogram: EF - 65%. L V chamber size is normal. T race tricuspid regurgitation. [facility] (12/15/2007) Favian Engle MD office visit Favian [...] daily BP today: 127/79 Orders: E KG ([id number]) Favian Engle MD office visit Favian Engle [...]
--- OUTSIDE RECORDS SUMMARY | 2025-03-24 13:54 | XMS_ITS | Encounter Summary ---
Author Organization [employer] Address 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
--- OUTSIDE RECORDS SUMMARY | 2025-03-24 13:54 | XMS_ITS | Encounter Summary ---
Author Organization [employer] Address [address] [place] [address] Care Team Providers Care Filler Operator Name Role Phone Rod Buckner PA-C Primary Care Provide r Encounter Details Date Type Department Care Team (Latest Contact Info) Description 02/16/2001 Outpatient Historical [facility] Armida Mendez MD [address] [facility] [address] [place] [address] Multiple sclerosis (CMS/HCC) (Primary Dx) Social History Tobacco Use Types Packs/Day Years Used Date Smoking Tobacco: Never Assessed Comments Unknown Sex and Gender Information Value Date Recorded Sex Assigned at Not on file Legal Sex Female 5:09 AM INJECTION MOLDING SUPERVISOR Gender Identity Not on file Sexual Orientation Not on file documented as of this encounter Plan of Treatment Not on file documented as of this encounter Visit Diagnoses Diagnosis Multiple sclerosis (CMS/HCC)- Primary Multiple sclerosis documented in this encounter Care Teams Filler Operator Relationship Specialty Start Date End Date Rod Buckner PA-C PCP - General Physician Manager Validation 10/05/20 documented as of this encounter
--- OUTSIDE RECORDS SUMMARY | 2025-03-24 13:54 | XMS_ITS | Encounter Summary ---
Author Organization [facility] Address [address] [place] [address] Care Team Providers Care Social Services Director Name Role Phone Rod Buckner PA-C Primary Care Provide r Encounter Details Date Type Department Care Team (Late st Contact Info) Description 10/29/2007 Outpatient Historical [facility] MRI DEPT Armida Mendez MD [address] [facility] [address] [place] [address] Multiple Sclerosis (CMS/HCC) (Primary Dx) Social History Tobacco Use Types Packs/Day Years Used Date Smoking Tobacco: Never Assessed Comments Unknown Sex and Gender Information Value Date Recorded Sex Assigned at Not on file Legal Sex Female 5:09 AM REGULATORY COMPLIANCE MANAGER Gender Identity Not on file Sexual Orientation Not on file documented as of this encounter Plan of Treatment Not on file documented as of this encounter Visit Diagnoses Diagnosis Multiple sclerosis (CMS/HCC)- Primary Multiple sclerosis documented in this encounter Care Teams Social Services Director Relationship Specialty Start Date End Date Rod Buckner PA-C PCP - General Physician Liturgical Music Director 10/05/20 documented as of this encounter
--- OUTSIDE RECORDS SUMMARY | 2025-03-24 13:54 | XMS_ITS | Encounter Summary ---
Author Organization [employer] Address [address] [place] [address] Care Team Providers Care Surgical Instrument Mechanic Name Role Phone Rod Buckner PA-C Primary Care Provide r Encounter Details Date Type Department Care Team (Late st Contact Info) Description 12/04/2000 Outpatient Historical Division of Neurology [address] [address] Armida Mendez MD [address] [facility] [address] [place] [address] Social History Tobacco Use Types Packs/Day Years Used Date Smoking Tobacco: Never Assessed Comments Unknown Sex and Gender Information Value Date Recorded Sex Assigned at Not on file Legal Sex Female 5:09 AM CLINIC MGR Gender Identity Not on file Sexual Orientation Not on file documented as of this encounter Plan of Treatment Not on file documented as of this encounter Visit Diagnoses Not on filedocumented in this encounter Care Teams Surgical Instrument Mechanic Relationship Specialty Start Date End Date Rod Buckner PA-C PCP - General Physician Medical Bill Processor 10/05/20 documented as of this encounter
--- OUTSIDE RECORDS SUMMARY | 2025-03-24 13:54 | XMS_ITS | Encounter Summary ---
Author Organization [facility] Address [address] [place] [address] Care Team Providers Care Landscaping Supervisor Name Role Phone Rod Buckner PA-C Primary Care Provide r Encounter Details Date Type Department Care Team (Latest Contact Info) Description 04/03/2008 Outpatient Historical [facility] [address] [place] [address] Armida Mendez MD [address] [facility] [address] [place] [address] Multiple Sclerosis (CMS/HCC) (Primary Dx) Social History Tobacco Use Types Packs/Day Years Used Date Smoking Tobacco: Never Assessed Comments Unknown Sex and Gender Information Value Date Recorded Sex Assigned at Not on file Legal Sex Female 5:09 AM ORE SMELTER Gender Identity Not on file Sexual Orientation Not on file documented as of this encounter Plan of Treatment Not on file documented as of this encounter Visit Diagnoses Diagnosis Multiple sclerosis (CMS/HCC)- Primary Multiple sclerosis documented in this encounter Care Teams Landscaping Supervisor Relationship Specialty Start Date End Date Rod Buckner PA-C PCP - General Physician Senior Technical Writer 10/05/20 documented as of this encounter
--- OUTSIDE RECORDS SUMMARY | 2025-03-24 13:55 | XMS_ITS | Encounter Summary ---
Author Organization [facility] Address [address] [place] [address] Care Team Providers Care Field Sales Representative Name Role Phone Rod Buckner PA-C Primary [...] on file Legal Sex Female 5:09 AM DIESEL ENGINE II PIPE FITTER Gender Identity Not on file Sexual Orientation Not on file documented as of this encounter Plan of Treatment Not on file documented as of this encounter Visit Diagnoses Diagnosis Other dyspnea and respiratory abnormality- Primary documented in this encounter Care Teams Field Sales Representative Relationship Specialty Start Date End Date Rod Buckner PA-C PCP - General Physician Cambering Machine Operator 10/05/20 documented as of this encounter
--- OUTSIDE RECORDS SUMMARY | 2025-03-24 13:55 | XMS_ITS | Encounter Summary ---
Author Organization [facility] Address [address] [place] [address] Care Team Providers Care Senior Animal Trainer Name Role Phone Rod Buckner PA-C Primary Care Provide r Zuly Miller MD Unavailable [phone] Ayan Oroczo MID LEVEL PRACTITIONER-PIANO MOVER Primary Care Provider Encounter Details Date Type Department Care Team (Late st Contact Info) Description 06/25/2020 Telephone [facility] [address] [place] [address] Nick Rojas MD [address] [place] [address] Social History Tobacco Use Types Packs/Day Years Used Date Smoking Tobacco: Former Cigarettes 4 20 0 11/30/1970 - 11/30/1990 Smokeless Tobacco: Never Alcohol Use Standard Drinks/Week Comments No 0 (1 standard drink = 0.6 oz pur e alcohol) Comments No Sex and Gender Information Value Date Recorded Sex Assigned at Not on file Legal Sex Female 12:42 PM CROP GRAIN OR LIVESTOCK FARMER Gender Identity Not on file Sexual Orientation [...] Assessment Author No 09/10/2018 4:23 PM CDT Edwards, Mi ck, RN * Is person blind or have [...] 09/10/2018 4:23 PM CDT Nay Edwards RN documented as of this encounter Mental Status * Does person have difficulty concentrating/remembering/making decisions? Answer Entry Date Author No 09/10/2018 4:23 PM CDT Nay Edwards RN documented in this encounter Miscellaneous Notes * Telephone Encounter - Viki Buckner - 06/25/2020 11:37 AM CDT Per Eveline at [facility], cpt codes: 53541-12, 89463-25, 08551, 09384, and 34923 do not require prior authorization. Patient is scheduled for this as a combo surgery with Dr. Rojas and Dr. Roy on 07/06/2020. Dr. Roy's office is going to reach out to the patient regarding her surgery instructions and COVID testing information. Viki Quiñones [phone] documented in this encounter Plan of Treatment Upcoming Encounters Date Type Department Care Team (Late st Contact Info) Description 04/12/2025 9:30 AM CDT Office Visit [facility] - Urology [address] [facility] [place] [phone] Ni Thapa, [address] [place] [address] [address] DIV [place]IC [place] [address] 05/17/2025 10:00 AM CDT Appointment [facility] [address] [place] [address] Diane Lizet, MID LEVEL PRACTITIONER-PIANO MOVER [address] [place] [address] 05/31/2025 9:00 AM CDT Office Visit [facility] - GI [address] [facility] [place] [address] Isai Leon MD [address] [place] [address] 08/16/2025 10:00 AM CDT Appointment [facility] [address] [place] [address] [place] [address] [facility] [address] [place] [address] 08/16/2025 10:40 AM CDT Office Visit [facility] - Hematology/Oncology [address] [place] [address] Zuly Miller MD [address] [facility] [address] [place] [address] 08/21/2025 11:30 AM CDT Office Visit [facility] - General Surgery [address] [place] [address] Bebe Faulkner MD [address] [facility] [address] [place] [address] documented as of this encounter Goals Goal Patient Goal Type Associated Problems Recent Progress Patient-Stated? Author Safety General On track( 024 2:13 PM CROP GRAIN OR LIVESTOCK FARMER) Ml Serra, RN Note: Expected end date: Ongoing Interventions: Your nurse will assess your risk for falls/injury each visit Use appropriate and safe transfer methods Medication Management General On track( 024 2:13 PM CROP GRAIN OR LIVESTOCK FARMER) Ml Serra, RN Note: Expected end date: Ongoing Interventions: Take all medications as prescribed Let your doctor know right away about any changes in your medications documented as of this encounter Visit Diagnoses Not on filedocumented in this encounter Care Teams Senior Animal Trainer Relationship Specialty Start Date End Date Rod Buckner PA-C [address] [place] [address] PCP - General 02/18/19 02/21/25 Ayan Orozco APRN-PIANO MOVER [address] [place] [address] PCP - General Nurse Practitioner 02/22/25 Zuly Miller MD [address] [address] Hematology and Oncology 02/17/24 documented as of this encounter
--- OUTSIDE RECORDS SUMMARY | 2025-03-24 13:55 | XMS_ITS | Continuity of Care Document ---
Author Organization [facility] Address [id number] [place] [address] [address] [place] [address] Phone Care Team Providers Care Teenage Babysitter Name Role Phone Moreno BULLARD, Dolly Unavailable [...] Provider Providers Copied on Encounter [facility], [address] [place] [address], [id number], [place] tel:[phone] O[facility] No Information 1 Moreno Alberto. [address] [facility] [address] [facility] [address], [place], [address], [place]. tel:[phone] OFFICE/OUTPA TIENT VISIT, EST [facility], [address] [place] [address], [id number], [place] tel:[phone] Oph Consult [facility] Multiple sclerosisPresb yopiaRetinal hemorrhage 1 Mayer Dolly. [address], [address], [place], [address], [place]. tel:[phone] [facility], [address] [place] [address], [place], [place], [id number], [place] tel:[phone] [facility] [place] No Information 1 Inderjit Davis. [address] [place] [address], [address], [place], [address], [place]. tel:[phone] [facility], [address] [place] [address], [id number], [place] tel:[phone] [facility] No Information 0 iBng Rodriguez. [address], [address], [place], [place], [id number], [place]. tel:[phone] Family History Family Member Type Diagnosis Age At Onset No Information Payers Payer name Insurance type Covered democrat ID Authoriza tion(s) No Information Social History [...] No Information Instructions Date Instruction Additional Infor zakia - Return in 6 months for Dilated [...] sclerosis Assessments Type Assessment Date No Information Patient Care Teams Name Effective Dates (start - stop) Status Members No Information
--- OUTSIDE RECORDS SUMMARY | 2025-03-24 13:55 | XMS_ITS | Encounter Summary ---
Author Organization [facility] Address [address] [place] [address] Care Team Providers Care Drapery Cutter Name Role Phone Rod Buckner PA-C Primary Care Provide r Encounter Details Date Type Department Care Team (Late st Contact Info) Description 04/29/2003 Outpatient Historical HIS MRI DEPT Armida Mendez MD [address] [facility] [address] [place] [phone] MULTIPLE SCLEROSIS (CMS/HCC) (Primary Dx) Social History Tobacco Use Types Packs/Day Years Used Date Smoking Tobacco: Never Assessed Comments Unknown Sex and Gender Information Value Date Recorded Sex Assigned at Not on file Legal Sex Female 5:09 AM PHOTOCOMPOSING KEYBOARD OPERATOR Gender Identity Not on file Sexual Orientation Not on file documented as of this encounter Plan of Treatment Not on file documented as of this encounter Visit Diagnoses Diagnosis Multiple sclerosis (CMS/HCC)- Primary Multiple sclerosis documented in this encounter Care Teams Drapery Cutter Relationship Specialty Start Date End Date Rod Buckner PA-C PCP - General Physician Dipper And Drier 10/05/20 documented as of this encounter
--- OUTSIDE RECORDS SUMMARY | 2025-03-24 13:55 | XMS_ITS | Encounter Summary ---
Author Organization [facility] [facility] Address [address] [place] [address] Care Team Providers Care Electric Repair Supervisor Name Role Phone Rod Buckner PA-C Primary Care Provide r Encounter Details Date Type Department Care Team (Late st Contact Info) Description 05/03/2002 Outpatient Historical Division of Neurology [address] [address] Armida Mendez MD [address] [facility] [address] [place] [address] Social History Tobacco Use Types Packs/Day Years Used Date Smoking Tobacco: Never Assessed Comments Unknown Sex and Gender Information Value Date Recorded Sex Assigned at Not on file Legal Sex Female 5:09 AM MACHINE TOOL REBUILDER Gender Identity Not on file Sexual Orientation Not on file documented as of this encounter Plan of Treatment Not on file documented as of this encounter Visit Diagnoses Not on filedocumented in this encounter Care Teams Electric Repair Supervisor Relationship Specialty Start Date End Date Rod Buckner PA-C PCP - General Physician Engineering Patternmaker 10/05/20 documented as of this encounter
--- OUTSIDE RECORDS SUMMARY | 2025-03-24 13:55 | XMS_ITS | Encounter Summary ---
Author Organization [facility] Address [address] [place] [address] Care Team Providers Care Paving Supervisor Name Role Phone Rod Buckner PA-C Primary Care Provide r Encounter Details Date Type Department Care Team (Late st Contact Info) Description 05/24/2002 Outpatient Historical HIS MRI DEPT Armida Mendez MD [address] [facility] [address] [place] [phone] MULTIPLE SCLEROSIS (CMS/HCC) (Primary Dx) Social History Tobacco Use Types Packs/Day Years Used Date Smoking Tobacco: Never Assessed Comments Unknown Sex and Gender Information Value Date Recorded Sex Assigned at Not on file Legal Sex Female 5:09 AM HEAD OF PARTNER DEVELOPMENT Gender Identity Not on file Sexual Orientation Not on file documented as of this encounter Plan of Treatment Not on file documented as of this encounter Visit Diagnoses Diagnosis Multiple sclerosis (CMS/HCC)- Primary Multiple sclerosis documented in this encounter Care Teams Paving Supervisor Relationship Specialty Start Date End Date Rod Buckner PA-C PCP - General Physician Technical Writer 10/05/20 documented as of this encounter
--- OUTSIDE RECORDS SUMMARY | 2025-03-24 13:55 | XMS_ITS | Encounter Summary ---
Author Organization [employer] Address [address] [place] [address] Care Team Providers Care Rehabilitation Services Coordinator Name Role Phone Rod Buckner PA-C Primary Care Provide r Encounter Details Date Type Department Care Team (Late st Contact Info) Description 01/10/2003 Outpatient Historical Division of Neurology [address] [address] Armida Mendez MD [address] [facility] [address] [place] [address] Social History Tobacco Use Types Packs/Day Years Used Date Smoking Tobacco: Never Assessed Comments Unknown Sex and Gender Information Value Date Recorded Sex Assigned at Not on file Legal Sex Female 5:09 AM SKI LIFT OPERATOR Gender Identity Not on file Sexual Orientation Not on file documented as of this encounter Plan of Treatment Not on file documented as of this encounter Visit Diagnoses Not on filedocumented in this encounter Care Teams Rehabilitation Services Coordinator Relationship Specialty Start Date End Date Rod Buckner PA-C PCP - General Physician Control Supervisor 10/05/20 documented as of this encounter
--- OUTSIDE RECORDS SUMMARY | 2025-03-24 13:55 | XMS_ITS | Clinical Summary ---
Author Organization [facility] Address [address] [place] [address] Phone Care Team Providers Care Equip Tech Name Role Phone Rod Buckner PA-C Primary Care Provide r Allergies Active Allergy Reactions Criticality Noted Date Comments Adhesive Tape-Silicones Unknown 03/08/2012 Amphetamine Aspartate Unknown Low 06/12/2015 Bacitracin Unknown Low 02/11/2019 Other reaction(s): Unknown Other reaction(s): Unknown Brightwood Oil Unknown 03/08/2012 Cefuroxime Axetil Unknown 03/08/2012 [...] 06/12/2015 Other reaction(s): Unknown Other reaction(s): Unknown Bkgycyeq-Pqntqdrvx-Zerxx stepan Rash Medium 01/28/2017 Nitrate Analogues Unknown [...] lump Take 200 mcg by mouth daily brew house supervisor. Active terbutaline (BRETHINE) 5 mg Oral tabletIndications [...] Vega MD Referring Provider: Carissa Plummer MD [address] [place], [place] [address] [address] Other: Problem Noted Date Diagnosed Date Hormone [...] on file Legal Sex Female 5:09 AM CONSULTANT TEACHER Gender Identity Not on file Sexual [...] - Risk 60-74 years 1-dose series) 2018 DTAP/TDAP/TD VACCINES (2 - T d or [...] Additional history exists Colorectal Cancer Screening 01/04/2035 Insurance BCBS BLUE ACCESS/TRUE BLUE PPO [facility] Care Teams Equip Tech Relationship Specialty Start Date End Date Rod Buckner PA-C PCP - General Physician Business Process Analyst 10/05/20
--- OUTSIDE RECORDS SUMMARY | 2025-03-24 13:55 | XMS_ITS | Encounter Summary ---
Author Organization [facility] Address [address] [place] [address] Care Team Providers Care Hospital Monitor Name Role Phone Rod Buckner PA-C Primary [...] on file Legal Sex Female 5:09 AM TEACHING PASTOR Gender Identity Not on file Sexual Orientation Not on file documented as of this encounter Plan of Treatment Not on file documented as of this encounter Visit Diagnoses Diagnosis Displacement of cervical intervertebral disc without myelopathy- Primary documented in this encounter Care Teams Hospital Monitor Relationship Specialty Start Date End Date Rod Buckner PA-C PCP - General Physician Data Collection Specialist 10/05/20 documented as of this encounter
--- OUTSIDE RECORDS SUMMARY | 2025-03-24 13:55 | XMS_ITS | Encounter Summary ---
Author Organization [facility] Address 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
--- OUTSIDE RECORDS SUMMARY | 2025-03-24 13:55 | XMS_ITS | Encounter Summary ---
Author Organization [facility] Address [address] [facility] [place] [address] Care Team Providers Care Craps Dealer Name Role Phone Lottie Chin Unavailable Unavailable Rod Buckner PA-C Primary Care Provide r Zuly Miller MD Unavailable [phone] Ayan Orozco APRN-SAND CUTTER Primary Care Provider Reason for Visit * Reason Onset Date Comments Med Question 12/13/2018 Encounter Details Date Type Department Care Team (Late st Contact Info) Description 12/13/2018 Telephone [facility] Medicine [address] [address] Martha Clark MD [address] [facility] [place] [phone] Med Question Social History Tobacco Use Types Packs/Day Years Used Date Smoking Tobacco: Former Cigarettes 4 20 0 11/30/1970 - 11/30/1990 Smokeless Tobacco: Never Alcohol Use Standard Drinks/Week Comments No 0 (1 standard drink = 0.6 oz pur e alcohol) Comments No Sex and Gender Information Value Date Recorded Sex Assigned at Not on file Legal Sex Female 12:42 PM 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 Answer Date of Assessment Author No 09/10/2018 4:23 PM CDT Nay Edwards, RN * Is person blind or have [...] Entry Date Author No 09/10/2018 4:23 PM ALMAT Nay Edwards RN documented in this encounter [...] least a month d/t using [employer] WAREHOUSE DEVELOPER documented in this encounter Plan of Treatment Upcoming Encounters Date Type Department Care Team (Late st Contact Info) Description 04/12/2025 9:30 AM CDT Office Visit [facility] - Urology [address] [place] [address], [place] [address] Ni Thapa, DO [address] [place] [address] 05/17/2025 10:00 AM CDT Appointment [facility] [address] [place] [address] Lizet Contreras, ENGINEERING INSPECTOR-SAND CUTTER [address] [place] [address] 05/31/2025 9:00 AM CDT Office Visit [facility] - GI [address] [facility], [place] [address] Isai Leon MD [address] [place] [address] 08/16/2025 10:00 AM CDT Appointment [facility] [address] [place] [address] [place] [address] [facility] [address] [place] [phone] 08/16/2025 10:40 AM CDT Office Visit [facility] - Hematology/Oncology [address] [place] [phone] Zuly Miller MD [address] [facility] [address] [place] [address] 08/21/2025 11:30 AM CDT Office Visit [facility] - General Surgery [address] [place] [address] Bebe Faulkner MD [address] [facility] [address] [place] [phone] documented as of this encounter Goals Goal Patient Goal Type Associated Problems Recent Progress Patient-Stated? Author Safety General On track( 024 2:13 PM DATA WAREHOUSE DEVELOPER) Ml Serra, KIERA Note: Expected end date: Ongoing Interventions: Your nurse will assess your risk for falls/injury each visit Use appropriate and safe transfer methods Medication Management General On track( 024 2:13 PM DATA WAREHOUSE DEVELOPER) Ml Serra, RN Note: Expected end date: Ongoing Interventions: Take all medications as prescribed Let your doctor know right away about any changes in your medications documented as of this encounter Visit Diagnoses Not on filedocumented in this encounter Care Teams Craps Dealer Relationship Specialty Start Date End Date Rod Buckner PA-C [address] [facility] [address] [place] [address] PCP - General 02/18/19 02/21/25 Ayan Orozco APRN-SAND CUTTER [address] [place] [address] PCP - General Nurse Practitioner 02/22/25 Lottie Chin Keno Writer Psychiatry 09/08/18 03/22/19 Zuly Miller MD [address] [facility] [address] [place] [address] Hematology and Oncology 02/17/24 documented as of this encounter
--- OUTSIDE RECORDS SUMMARY | 2025-03-24 13:55 | XMS_ITS | Encounter Summary ---
Author Organization [facility] Address 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
--- OUTSIDE RECORDS SUMMARY | 2025-03-24 13:55 | XMS_ITS | Encounter Summary ---
Author Organization [employer] Address [address] [place] [address] Care Team Providers Care Shake Sawyer Name Role Phone Rod Buckner PA-C Primary Care Provide r Encounter Details Date Type Department Care Team (Late st Contact Info) Description 07/29/2002 Outpatient Historical Division of Neurology [address] [address] Armida Mendez MD [address] [facility] [address] [place] [address] Social History Tobacco Use Types Packs/Day Years Used Date Smoking Tobacco: Never Assessed Comments Unknown Sex and Gender Information Value Date Recorded Sex Assigned at Not on file Legal Sex Female 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
--- OUTSIDE RECORDS SUMMARY | 2025-03-24 13:55 | XMS_ITS ---
Author Organization [facility] Address [address] [facility] [place] [address] Care Team Providers Care Medical Imaging Technician Name Role Phone Zuly Miller MD Unavailable [phone] Ayan Orozco APRN-ETL PROGRAMMER Primary Care Provider Active Problems * This document contains information received from the source organization and may not represent a complete record from that organization. Problem Noted Date Diagnosed Date Barnard's esophagus 04/19/2024 Diastolic dysfunction 04/19/2024 Osteopenia of multiple sites 10/14/2023 Acquired absence of both breasts 02/07/2021 Breast cancer, right 2019, stage 0 07/06/2020 Cancer Staging:Clinical stage from 09/28/2021:Stage 0(cTis (DCIS), cN0, cM0, G2, ER: Not Assessed, ME: Not Assessed, HER2: Not Assessed) - Signed by Meghana Zapata MD on 09/29/2021 Pathologic stage from 09/29/2021:Stage 0(pTis (DCIS), cN0, cM0, G2, ER: Not Assessed, ME: Not Assessed, HER2: Not Assessed) - Signed [...] from 07/18/2020:Stage IA(cT1b, cN0, cM0, G1, ER+, ME+, HER2-) - Signed by Meghana Zapata MD on 09/29/2021 Pathologic stage from 07/18/2020:Stage IA(pT1b, pN0(sn), cM0, G1, ER+, ME+, HER2- ) - Signed by Meghana Zapata MD on 09/29/2021 Overview (09/29/2021): Left, upper outer, 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 Other Current Plans BREAST ADJ (ZOLEDRONIC ACID) Q180 DAYS (ZOMETA)* Plan Start Date:02/09/2024 Plan Provider:Wilmer Zhang MD Linked Problems Osteopenia of multiple sites Treatment Medications Current Day (Day 1, Cycle 4 - Planned for 08/12/2025) No medications scheduled. No medications schedul ed. Past Treatment and Therapy Plans No past plan information found. 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 - Preliminary Celi score 1 (tub 1/nuc 1/zaynab 1). - ER positive, ME positive, HER-2 negative. Date of diagnosis: 06/22/20 Age of diagnosis: 60 Tumor Information Cancer Staging Ductal carcinoma in situ (DCIS) of right breast Staging form: Breast, AJCC 8th Edition - Clinical: No stage assigned - Unsigned - Pathologic stage from 07/18/2020: Stage 0 (pTis (DCIS), cN0, cM0, ER: Not Assessed, ME: Not Assessed, HER2: Not Assessed) - Signed by Jennifer Roy MD on 07/18/2020 Malignant neoplasm of upper-outer quadrant of left breast in female, estrogen receptor positive Staging form: Breast, AJCC 8th Edition - Clinical stage from 07/18/2020: Stage IA (cT1b, cN0, cM0, G1, ER+, ME+, HER2-) - Signed by Jennifer Roy MD on 07/18/2020 - Pathologic stage from 07/18/2020: Stage IA (pT1b, pN0(sn), cM0, G1, ER+, ME+, HER2-) - Signed by Jennifer Roy MD on 07/18/2020 Surgery Information Description: Bilateral TMs, left SLNB and bilateral immediate breast reconstruction with local tissue rearrangement an inferior dermal flaps Date: 07/06/20 Surgeon/Facility Name: Jennifer Roy MD and Nick Rojas MD / [facility] Adjuvant Treatment Recommendations: Medical Oncology referral Initial Imaging Mammogram: 06/22/20; [facility]; Irregular mass with distortion in the [...] fertility -Pain that may be chronic or fdc -Difficulty with speech or swallowing -Emotional effects of physical changes Cancer Surveillance Schedule You will be seen more frequently the earlier you are in your surveillance plan. Every patient will have an individualized follow up schedule based on recommendations from national cancer organizations and your specific post- treatment course. Follow up with Location How often Radiation Oncology [facility] Clinical visit every 4-6 months for 5 yrs, then every [address] Pruitt's recommendations Medical Oncology [facility] Surgery [facility] Mammography [facility] You have had bilateral mastectomies Reasons to call: New lesions or mass Chest pain New feelings of sadness or being overwhelmed Unintended weight loss Cough that does not go away Any side effects or questions of care Your follow up schedule is listed below Future Appointments Date Time Provider Department Center 10/08/2020 12:30 PM Nona Alfonso PA-C AFFSLUGIWCOU AFF [facility] [place] 02/21/2021 10:00 AM Arlin Pruitt MD [id number] [facility] S 03/01/2021 9:30 AM Janeth Titus MD [id number] [facility] Contact Information Medical Oncologist Arlin Pruitt MD Surgeon Jennifer Roy MD / Bebe Faulkner MD Social Work Dietitian Pastoral Care [facility] Hospital Scheduling Primary Care Provider Rod Buckner PA-C [phone] Recommended cancer screenings Colonoscopy: every 10 years [...] walk a few extra steps. Important Resources [facility] [place] Cancer Society cancer.org Association of Cancer Online Resources acor.org Caring Bridge caringbridge.org CancerCare cancercare.org [facility] livestrong.org National Cancer [place] cancer.gov Cancer Survivors Network csn.cancer.org National Coalition for Cancer Survivorship canceradvocacy.org [place] Society of Clinical Oncologists cancer.net Cancer Support Community [facility] www.cancersupportstl.org Radiation Therapy Questions/Answers www.rtanswers.org Resolved Problems Problem Noted Date Diagnosed Date Resolved Date History of esophagogastroduodenoscopy (EGD) 01/12/2025 01/12/2025 Functional diarrhea 01/11/2020 04/24/20 21
--- NOTE | 2025-03-24 14:17 | ED_ITS ---
HPI - SOB/Dyspnea General Chief Complaint: Shortness of Breath/Dyspnea <Majo Fair APRN - Last Filed: 03/24/25 16:10> Stated Complaint: shortness of breath <Majo Fair APRN - Last Filed: 03/24/25 16:10> Time Seen by Provider: 03/24/25 14:10 <Majo Fair APRN - Last Filed: 03/24/25 16:10> Focused HPI: Patient is a 64-year-old female presents to the ER with complaints of shortness of breath and chest pressure that started approximately 1 hour prior to arrival. She reports yesterday she had surgery performed on her back. Patient endorses a significant medical history including multiple sclerosis, atrial fibrillation, and chronic bronchitis. She denies any recent fevers, urinary symptoms, or headache. GENERAL: Ill-appearing, well-nourished, and in mild respiratory distress. HEAD: Normocephalic, atraumatic. CHEST: Clear to auscultation. ?Mild respiratory distress. HEART: Regular rate and rhythm.? NEURO: ?Alert and oriented x3. Patient screened in triage and initial orders placed.? ?Additional care and disposition to be based upon?diagnostic testing and treatment. <Majo Fair APRN - Last Filed: 03/24/25 16:10> History of Present Illness HPI Narrative: I agree with the above HPI <Doug Gomez MD - Last Filed: 03/24/25 19:22> Related Data Home Medications: Home Medications ?Medication ?Instructions ?Recorded ?Confirmed ?Last Taken ?Type aspirin 81 mg tablet,delayed 81 mg PO DAILY 12/15/19 03/24/25 Unknown History release (Adult Low Dose Aspirin) biotin 5 mg capsule 5 mg PO DAILY 12/15/19 03/24/25 Unknown History galcanezumab-gnlm 120 mg/mL 120 mg subcut MONTHLY 12/15/19 03/24/25 Unknown History subcutaneous pen injector (Emgality Pen) glatiramer 20 mg/mL subcutaneous 20 mg subcut DAILY 12/15/19 03/24/25 Unknown History syringe (Copaxone) glucosamine-chondroitin 500 mg-400 1 cap PO TID 08/27/20 03/24/25 Unknown History mg capsule simethicone 125 mg chewable tablet 250 mg PO TID 08/27/20 03/24/25 Unknown History (Gas-X Extra Strength) calcium carbonate (Tums) 1,200 mg PO TID PRN Abdominal Pain 03/05/21 03/24/25 Unknown History cranberry fruit 400 mg capsule 4,000 mg PO TID 03/05/21 03/24/25 Unknown History baclofen 10 mg tablet 30 mg PO QID muscle spasm 08/07/21 03/24/25 Unknown History desipramine 10 mg tablet 15 mg PO QPM 08/07/21 03/24/25 Unknown History fluticasone propionate 50 1 spray intranasal Q12H 05/19/22 03/24/25 Unknown History mcg/actuation nasal spray,suspension (Flonase Allergy Relief) acetaminophen 500 mg tablet 500 mg PO Q6H PRN Pain 07/28/22 03/24/25 Unknown History (Tylenol Extra Strength) fluoride (sodium) 1.1 % dental gel 1 applic dental HS 07/28/22 03/24/25 Unknown History (PreviDent) omega 5-ppn-mky-fish oil 1,000 mg 1 cap PO TID 08/19/22 03/24/25 Unknown History (120 mg-180 mg) capsule (Fish Oil) tiotropium 2.5 mcg-olodaterol 2.5 1 puff inhalation BID 06/09/23 03/24/25 Unknown History mcg/actuation mist for inhalation (Stiolto Respimat) exemestane 25 mg tablet 25 mg PO DAILY 07/27/23 03/24/25 Unknown History albuterol sulfate 90 mcg/actuation 2 inh inhalation .q12 02/10/25 03/24/25 Unknown History aerosol inhaler (Ventolin HFA) levothyroxine 175 mcg tablet 175 mcg PO DAILY 02/10/25 03/24/25 Unknown History (Levo-T) esomeprazole magnesium 40 mg 40 mg PO Q12H 03/24/25 03/24/25 Unknown History capsule,delayed release evening primrose oil-linoleic 1 cap PO DAILY 03/24/25 03/24/25 Unknown History acid-gamolenic acid 1,000 mg capsule (Nazareth Oil) famotidine 20 mg tablet (Acid 20 mg PO DAILY 03/24/25 03/24/25 Unknown History Controller) hyoscyamine sulfate 0.125 mg See Rx Instructions .Route .COMPLEX 03/24/25 03/24/25 Unknown History sublingual tablet simethicone 80 mg chewable tablet 80 mg PO TID 03/24/25 03/24/25 Unknown History (Gas Relief (simethicone)) sucralfate 100 mg/mL oral 20 ml PO DIRECTED 03/24/25 03/24/25 Unknown History suspension tiotropium 2.5 mcg-olodaterol 2.5 1 puff inhalation .q12hr 03/24/25 03/24/25 Unknown History mcg/actuation mist for inhalation (Stiolto Respimat) <Majo Fair, NANOTECHNOLOGY TECHNICIAN - Last Filed: 03/24/25 16:10> Allergies/Adverse Reactions: Allergies Allergy/AdvReac Type Severity Reaction Status Date / Time adhesive tape Allergy Mild Unknown Verified 03/24/25 18:44 amphetamine (From Adderall) Allergy Mild Other Verified 03/24/25 18:44 armodafinil (From Nuvigil) Allergy Mild Unknown Verified 03/24/25 18:44 aspartame (From Nutrasweet Allergy Mild Headache Verified 03/24/25 18:44 Aspartame) cefuroxime (From Ceftin) Allergy Mild Unknown Verified 03/24/25 18:44 dextroamphetamine (From Allergy Mild Other Verified 03/24/25 18:44 Adderall) gabapentin (From Neurontin) Allergy Mild Unknown Verified 03/24/25 18:44 latex Allergy Mild Unknown Verified 03/24/25 18:44 liver extract Allergy Mild Other Verified 02/24/25 07:38 meperidine (From Demerol) Allergy Mild Unknown Verified 03/24/25 18:44 metoclopramide (From Reglan) Allergy Mild Unknown Verified 03/24/25 18:44 metronidazole (From Flagyl) Allergy Mild Unknown Verified 03/24/25 18:44 pentazocine (From Talwin) Allergy Mild Unknown Verified 03/24/25 18:44 silver nitrate Allergy Mild Unknown Verified 03/24/25 18:44 adhesive Allergy Unknown Unknown Verified 03/24/25 18:44 castor oil Allergy Unknown Unknown Verified 03/24/25 18:44 coconut Allergy Unknown Other Verified 03/24/25 18:44 ergot alkaloids Allergy Unknown Unknown Verified 03/24/25 18:44 erythromycin base Allergy Unknown Unknown Verified 03/24/25 18:44 mustard Allergy Unknown Other Verified 03/24/25 18:44 neomycin Allergy Unknown Unknown Verified 03/24/25 18:44 nitrofurantoin Allergy Unknown Unknown Verified 03/24/25 18:44 nystatin Allergy Unknown Unknown Verified 03/24/25 18:44 oxcarbazepine Allergy Unknown Hives / Verified 03/24/25 18:44 Red Face Penicillins Allergy Unknown Unknown Verified 03/24/25 18:44 polymyxin B Allergy Unknown polymycin Verified 03/24/25 18:44 eye drops spinach Allergy Unknown Other Verified 03/24/25 18:44 bacitracin Allergy Unknown Verified 03/24/25 18:44 nalbuphine (From Nubain) Allergy Unknown Verified 03/24/25 18:44 <Majo Fair APRN - Last Filed: 03/24/25 16:10> Review of Systems 2 Review of Systems: All systems reviewed & are unremarkable except as noted in HPI and below <Doug Gomez MD - Last Filed: 03/24/25 19:22> [facility] Past Medical History Medical History: Medical History (Updated 03/24/25 @ 16:51 by Doug Gomez MD) BMI 39.0-39.9,adult BMI 40.0-44.9, adult Hypokalemia Anxiety Chronic bronchitis with acute exacerbation Hypothyroidism Multiple sclerosis High cholesterol Hypokalemia Asthma Hypertension <Majo Fair APRN - Last Filed: 03/24/25 16:10> Surgical History Surgical History: Surgical History H/O arthroscopy of shoulder H/O nasal septoplasty History of hysterectomy H/O breast biopsy History of endoscopic sinus surgery H/O colonoscopy History of appendectomy H/O bilateral mastectomy <Majo Fair APRN - Last Filed: 03/24/25 16:10> Family History Family History: Family History Mother Family history of lung cancer Family history of malignant neoplasm of breast in first degree relative Father Family history of lung cancer Family history of migraine headaches Other Diabetes mellitus Family history of heart disease in male family member before age 55 Family history of kidney disease <Majo Fair APRN - Last Filed: 03/24/25 16:10> Social History Social History: Social History Smoking packs per day: 2 Smoking cigarettes per day: 40.0 Years smoked: 20 Smoking pack-years: 40.00 Smoking status: Former smoker Second hand tobacco smoke exposure: No Alcohol intake: former Substance use: never Substance use type: does not use Do You Feel Safe in your Home?: Yes Lack of Transportation: No Lack of Food: Never True Current Housing: I Have Housing Concerned About Future Housing: No Difficulty Paying Gas/Electric Bills: No Difficulty Paying for Meds: No Currently Unemployed: YES Education: Bachelor's Degree Difficulty w/ Childcare or Family Care: No Living arrangements: with family 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 HEAD: normocephalic, atraumatic. EYES: PERRLA/EOMI, conjunctivae clear. NOSE: Normal no drainage EARS:TMS clear with good light reflex. THROAT: Pharynx clear, no exudate. NECK: Supple. No adenopathy, no masses. RESPIRATORY: Airway patent, respirations nonlabored. Clear to auscultation bilaterally, no rales, rhonchi, wheezing. CARDIOVASCULAR: Regular rate and rhythm without murmurs rubs or gallops. ABDOMINAL: Soft, nontender, nondistended, normal bowel sounds MUSCULOSKELETAL: Moves all extremities. Strength/ROM intact, No edema, No calf tenderness. NEURO: Alert. Cranial nerves II through XII intact. Grossly intact SKIN: Warm, dry. Normal Color <Doug Gomez MD - Last Filed: 03/24/25 19:22> Course Vital Signs Vital signs: Vital Signs Temperature 97.3 F L 03/24/25 14:06 Pulse Rate 82 03/24/25 14:06 Respiratory Rate 22 H 03/24/25 14:06 Pulse Oximetry 100 03/24/25 14:06 Oxygen Delivery Room Air 03/24/25 14:06 Temperature 97.3 F L 03/24/25 14:06 Pulse Rate 76 03/24/25 17:17 Respiratory Rate 20 03/24/25 17:17 Blood Pressure 155/69 H 03/24/25 17:17 Pulse Oximetry 96 03/24/25 17:17 Oxygen Delivery Room Air 03/24/25 15:15 <Majo Fair APRN - Last Filed: 03/24/25 16:10> Vital Signs Temperature 97.3 F L 03/24/25 14:06 Pulse Rate 82 03/24/25 14:06 Respiratory Rate 22 H 03/24/25 14:06 Pulse Oximetry 100 03/24/25 14:06 Oxygen Delivery Room Air 03/24/25 14:06 Temperature 97.3 F L 03/24/25 14:06 Pulse Rate 76 03/24/25 17:17 Respiratory Rate 20 03/24/25 17:17 Blood Pressure 155/69 H 03/24/25 17:17 Pulse Oximetry 96 03/24/25 17:17 Oxygen Delivery Room Air 03/24/25 15:15 <Doug Gomez MD - Last Filed: 03/24/25 19:22> MDM - SOB/Dyspnea MDM Narrative Medical decision making narrative: 64-year-old female presents to the emergency department for evaluation for worsening exertional shortness breath. Patient is currently afebrile with no leukocytosis hemoglobin of 14.4, INR 0.9, no acute abnormalities on CMP. UA was concerning for infection with this was resulted after the patient went to the floor. Hospitalist was notified. Patient's CTA showed no evidence of pulmonary edema or pneumothorax. Patient did become hypoxic with ambulation. Patient was admitted for further evaluation <Doug Gomez MD - Last Filed: 03/24/25 19:22> Differential Diagnosis Differential diagnosis: Likely acute exacerbation of chronic obstructive airways disease, congestive heart failure, community acquired pneumonia, asthma with exacerbation and pulmonary embolism <Doug Gomez MD - Last Filed: 03/24/25 19:22> Lab Data Attestation: I reviewed the patient's lab results. <Doug Gomez MD - Last Filed: 03/24/25 19:22> Result diagrams: 03/24/25 15:12 03/24/25 15:12 <Majo JoynerMerissa Fair, NANOTECHNOLOGY TECHNICIAN - Last Filed: 03/24/25 16:10> Labs: Lab Results 03/24/25 03/24/25 Range/Units 15:12 15:46 WBC 8.7 (4.5-10.0) K/mm3 RBC 4.80 (4.2-5.4) M/mm3 Hgb 14.4 (12.0-15.0) g/dL Hct 45.8 (37.0-47.0) % MCV 95.4 (80-100) fl MCH 30.0 (26-34) pg MCHC 31.4 L (32-36) g/dl RDW 15.8 H (11.5-14.5) % Plt Count 228 (150-375) k/mm3 MPV 10.6 H (7.4-10.4) fl Immature Gran % (Auto) 0.6 H (0-0.5) % Neut % (Auto) 64.1 (45.5-73.1) % Lymph % (Auto) 22.6 (18.3-44.2) % Smyth % (Auto) 8.8 H (2.6-8.5) % Eos % (Auto) 3.2 (0-4.4) % Baso % (Auto) 0.7 (0.2-1.2) % Lymph # (Auto) 1.97 (0.9-3.2) K/mm3 Smyth # (Auto) 0.8 H (0.1-0.6) K/mm3 Eos # (Auto) 0.3 (0-0.3) K/mm3 Baso # (Auto) 0.1 (0.0-0.1) K/mm3 Abs Immat Gran (auto) 0.05 H (0.00-0.031) K/mm3 Absolute Neuts (auto) 5.6 (1.3-6.7) K/mm3 Absolute Nucleated RBC 0.000 (0.0-0.012) K/mm3 Nucleated RBC % 0.0 (0.0-0.2) % PT 12.8 (11.1-14.7) Seconds INR 0.9 APTT 29.6 (22.3-36.8) Seconds Sodium 141 (137-145) mmol/L Potassium 4.8 (3.4-5.0) mmol/L Chloride 105 (98-107) mmol/L Carbon Dioxide 29 (22-30) mmol/L Anion Gap 7 (4-12) mmol/L BUN 11 (7-17) mg/dL Creatinine 0.84 (0.7-1.0) mg/dL Estim Creat Clear Calc 66 ml/min Estimated GFR > 60 (59 - ) Glucose 113 H (65-110) mg/dL Calcium 10.1 (8.4-10.2) mg/dL Total Bilirubin 0.5 (0.2-1.3) mg/dL AST 21 (14-36) U/L ALT 33 (6-35) U/L Alkaline Phosphatase 95 (38-126) U/L Troponin I < 0.012 (0.000-0.034) ng/mL NT-Pro-B Natriuret Pep 27 (19.9-100) pg/mL Total Protein 7.0 (6.3-8.2) g/dL Albumin 4.3 (3.5-5.1) g/dL Urine Color Yellow (Yellow) Urine Appearance Clear (Clear) Urine pH 6.0 (5.0-9.0) Ur Specific [place] 1.015 (1.001-1.035) Urine Protein Negative (Negative) mg/dL Urine Glucose (UA) Negative (Negative) mg/dL Urine Ketones Negative (Negative) mg/dL Ur Blood (Man) Trace (Negative) Urine Nitrate Negative (Negative) Urine Bilirubin Negative (Negative) Urine Urobilinogen 0.2 (<2.0) mg/dL Leukocyte Esterase Rfl 3+ H (Negative) BREANNA/UL Urine RBC 0-2 (0-2) /hpf Urine WBC >100 H (0-3) /hpf Ur Squamous Epith Cells None seen (Few) /hpf Urine Bacteria None seen /hpf Urine Casts 0-2 <Majo Fair, NANOTECHNOLOGY TECHNICIAN - Last Filed: 03/24/25 16:10> Lab Results 03/24/25 03/24/25 Range/Units 15:12 15:46 WBC 8.7 (4.5-10.0) K/mm3 RBC 4.80 (4.2-5.4) M/mm3 Hgb 14.4 (12.0-15.0) g/dL Hct 45.8 (37.0-47.0) % MCV 95.4 (80-100) fl MCH 30.0 (26-34) pg MCHC 31.4 L (32-36) g/dl RDW 15.8 H (11.5-14.5) % Plt Count 228 (150-375) k/mm3 MPV 10.6 H (7.4-10.4) fl Immature Gran % (Auto) 0.6 H (0-0.5) % Neut % (Auto) 64.1 (45.5-73.1) % Lymph % (Auto) 22.6 (18.3-44.2) % Smyth % (Auto) 8.8 H (2.6-8.5) % Eos % (Auto) 3.2 (0-4.4) % Baso % (Auto) 0.7 (0.2-1.2) % Lymph # (Auto) 1.97 (0.9-3.2) K/mm3 Smyth # (Auto) 0.8 H (0.1-0.6) K/mm3 Eos # (Auto) 0.3 (0-0.3) K/mm3 Baso # (Auto) 0.1 (0.0-0.1) K/mm3 Abs Immat Gran (auto) 0.05 H (0.00-0.031) K/mm3 Absolute Neuts (auto) 5.6 (1.3-6.7) K/mm3 Absolute Nucleated RBC 0.000 (0.0-0.012) K/mm3 Nucleated RBC % 0.0 (0.0-0.2) % PT 12.8 (11.1-14.7) Seconds INR 0.9 APTT 29.6 (22.3-36.8) Seconds Sodium 141 (137-145) mmol/L Potassium 4.8 (3.4-5.0) mmol/L Chloride 105 (98-107) mmol/L Carbon Dioxide 29 (22-30) mmol/L Anion Gap 7 (4-12) mmol/L BUN 11 (7-17) mg/dL Creatinine 0.84 (0.7-1.0) mg/dL Estim Creat Clear Calc 66 ml/min Estimated GFR > 60 (59 - ) Glucose 113 H (65-110) mg/dL Calcium 10.1 (8.4-10.2) mg/dL Total Bilirubin 0.5 (0.2-1.3) mg/dL AST 21 (14-36) U/L ALT 33 (6-35) U/L Alkaline Phosphatase 95 (38-126) U/L Troponin I < 0.012 (0.000-0.034) ng/mL NT-Pro-B Natriuret Pep 27 (19.9-100) pg/mL Total Protein 7.0 (6.3-8.2) g/dL Albumin 4.3 (3.5-5.1) g/dL Urine Color Yellow (Yellow) Urine Appearance Clear (Clear) Urine pH 6.0 (5.0-9.0) Ur Specific [place] 1.015 (1.001-1.035) Urine Protein Negative (Negative) mg/dL Urine Glucose (UA) Negative (Negative) mg/dL Urine Ketones Negative (Negative) mg/dL Ur Blood (Man) Trace (Negative) Urine Nitrate Negative (Negative) Urine Bilirubin Negative (Negative) Urine Urobilinogen 0.2 (<2.0) mg/dL Leukocyte Esterase Rfl 3+ H (Negative) BREANNA/UL Urine RBC 0-2 (0-2) /hpf Urine WBC >100 H (0-3) /hpf Ur Squamous Epith Cells None seen (Few) /hpf Urine Bacteria None seen /hpf Urine Casts 0-2 <Doug Gomez MD - Last Filed: 03/24/25 19:22> Imaging Data Radiologist's impression: Impressions Chest CTA 03/24/25 16:26 IMPRESSION: 1. No pulmonary embolism or other acute cardiopulmonary disease. 2. Mild emphysema with subsegmental air trapping related to associated small airway disease. <Doug Gomez MD - Last Filed: 03/24/25 19:22> Discharge Plan Discharge Clinical Impression: Exertional dyspnea, Hypoxia <Majo Fair APRN - Last Filed: 03/24/25 16:10> Patient Disposition: Still a Patient <Majo Fair APRN - Last Filed: 03/24/25 16:10> Condition: Stable <Majo Fair APRN - Last Filed: 03/24/25 16:10>
--- OUTSIDE RECORDS SUMMARY | 2025-03-24 14:19 | XMS_ITS | Clinical Summary ---
Author Organization [facility] Address [address] [place] [id number] Phone Care Team Providers Care Welder Machine Operator Name Role Phone Sunil Mayen DO Primary Care Provider [phone] Allergies Active Allergy Reactions Criticality Noted Date Comments Allyl Isothiocyanate Nausea And Vomiting,Unknown Low 02/04/2017 Amphetamine Low 06/12/2015 Other reaction(s): Unknown Amphetamine-Dextroampheta mine Palpitations Medium 01/28/2017 Other reaction(s): Other (see Comments) Heart palipations Armodafinil Unknown High 06/12/2015 Other reaction(s): Neuropathy Aspartame Other (see comments) Medium 06/18/2018 Other reaction(s): Other Abdominal pain Abdominal pain Bacitracin Low 02/11/2019 Other reaction(s): Unknown Crawford Oil Nausea And Vomiting Medium 11/10/2011 Other [...] 9 Active ergocalciferol (VITAMIN D2) 1.25 MG (13620 UT) capsule 9 Active VIVELLE-DOT 0.1 MG/24HR [...] 1 Active Spacer/Aero-Ho lding Chambers (OptiChamber Aidee[place] [facility] [place] administration instructions 1 Active albuterol (2.5 [...] hypercholesterolemia 09/11/2011 Atherosclerotic heart diseas [place] coronary artery without angina pectoris 09/10/2011 Edema [...] Comments Blood Pressure 136/72 02/05/2022 10:13 AM CYBER TRANSPORT SYSTEMS SPECIALIST Pulse - - Temperature 36.2 C (97.2 F) 02/05/2022 10:13 AM CYBER TRANSPORT SYSTEMS SPECIALIST Respiratory Rate 18 02/05/2022 10:13 AM CYBER TRANSPORT SYSTEMS SPECIALIST Oxygen Saturation - - Inhaled Oxygen Concentration - - Weight 113 kg (249 lb) 02/05/2022 10:13 AM CYBER TRANSPORT SYSTEMS SPECIALIST Height 160 cm (5' 3 ) 02/05/2022 10:13 AM CYBER TRANSPORT SYSTEMS SPECIALIST Body Mass Index 44.11 02/05/2022 10:13 AM CYBER TRANSPORT SYSTEMS SPECIALIST Plan of Treatment Health Maintenance Due Date Last Done Comments COVID-19 Vaccine (2023-2 5 season) 2024 09/20/2021, 02/26/2021, 01/29/2021 Influenza Vaccine (Season Ended) 2025 08/20/2020, 10/13/2014, 11/07/2013 Pneumococcal PPSV23/PCV13 65 + Years / Low and Medium Risk Completed 10/25/2019, 09/09/2019, 12/09/2017, Additional history exists Insurance Care Teams Welder Machine Operator Relationship Specialty Start Date End Date Sunil Mayen DO [address] [address] PCP - General Internal Medicine 09/27/19
--- OUTSIDE RECORDS SUMMARY | 2025-03-24 14:19 | XMS_ITS | Continuity of Care Document ---
Author Organization [facility] Address [id number] [place] [address] [address] [place] [address] Phone Care Team Providers Care Research Agricultural Engineer Name Role Phone Moreno BULLARD, Dolly Unavailable [...] Provider Providers Copied on Encounter [facility], [address] [place] [address], [id number], [place] tel:[phone] [facility] No Information 1 Moreno Alberto. [address], [address], [place], [address], [place]. tel:[phone] OFFICE/OUTPA TIENT VISIT, EST [facility], [address] [place] [address], [id number], [place] tel:[phone] [facility] Multiple sclerosisPresb yopiaRetinal hemorrhage 1 Mayer Dolly. [address], [address], [place], [address], [place]. tel:[phone] [facility], [address] [place] [address], [place], [place], [id number], [place] tel:[phone] [facility] No Information 1 Inderjit Davis. [address] [place] [address], [address], [place], [address], [place]. tel:[phone] [facility], [address] [place] [address], [id number], [place] tel:[phone] [facility] No Information 0 Bing Rodriguez. [address], [address], [place], [place], [id number], [place]. tel:[phone] Family History Family Member Type Diagnosis Age [...]
--- OUTSIDE RECORDS SUMMARY | 2025-03-24 14:19 | XMS_ITS | Encounter Summary ---
Author Organization [facility] Address [address] [place] [address] Care Team Providers Care Petroleum Blending Plant Operator Name Role Phone Rod Buckner PA-C Primary Care Provide r Encounter Details Date Type Department Care Team (Late st Contact Info) Description 01/31/2000 Outpatient Historical Division of Neurology [address] [address] Armida Mendez MD [address] [facility] [address] [place] [address] Social History Tobacco Use Types Packs/Day Years Used Date Smoking Tobacco: Never Assessed Comments Unknown Sex and Gender Information Value Date Recorded Sex Assigned at Not on file Legal Sex Female 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
--- OUTSIDE RECORDS SUMMARY | 2025-03-24 14:19 | XMS_ITS | Encounter Summary ---
Author Organization [facility] Address [address] [place] [address] Care Team Providers Care Forming Department Supervisor Name Role Phone Rod Buckner PA-C Primary Care Provide r Encounter Details Date Type Department Care Team (Late st Contact Info) Description 02/07/2000 Outpatient Historical [facility] DEPT Armida Mendez MD [address] [facility] [address] [place] [id number] Multiple sclerosis (CMS/HCC) (Primary Dx) Social History Tobacco Use Types Packs/Day Years Used Date Smoking Tobacco: Never Assessed Comments Unknown Sex and Gender Information Value Date Recorded Sex Assigned at Not on file Legal Sex Female 5: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
--- OUTSIDE RECORDS SUMMARY | 2025-03-24 14:19 | XMS_ITS | Encounter Summary ---
Author Organization [facility] Healthcare Address [address] [place] [address] Care Team Providers Care Child Care Assistant Name Role Phone Gail Wyatt MD Unavailable [phone] Lobito Gonzalez DO Primary Care Provider [phone] Reason for Referral * Consultation (Routine) - Pending Review Specialty Diagnoses / Procedures Referred By Lore montez Referred To Contact Psychology Diagnoses Multiple sclerosis (HCC) Antony Brennan MD [address] [facility] [address] [place] [address] Phone: tel: fax: James Castro, PhD [address] [facility] [address] [place] [address] Phone: tel: fax: Referral ID Status Reason Start Date Expiration Date Visits Requested Visits Authorized [id number] Pending Review Specialty Services Required 03/21/2025 04/20/2026 1 1 Question Answer Please select the performing region: External Order [171] To provider: JAMES CASTRO [[id number]] # of visits: 1 Encounter Details Date Type Department Care Team (Late st Contact Info) Description 03/13/2025 Telephone [facility] [address] [facility] [address] [place] [address] Janeth Escoto, KIERA Social History Tobacco Use [...] file Legal Sex Female 7:38 PM SUPERVISOR BOARDING Gender Identity Female 06/29/2020 2:02 PM CDT Sexual Orientation Not on file documented as of this encounter Miscellaneous Notes * Telephone Encounter - Antony Brennan MD - 03/20/2025 5:13 PM CDT Can order neuropsychological testing with Dr. James Castro * Telephone Encounter - Janeth Escoto RN - 03/20/2025 2:29 PM CDT Call back from [facility] neuropsychology. They did not find any records for this patient. * Telephone Encounter - Janeth Escoto RN - 03/15/2025 3:49 PM CDT Discussed with Angelica. Thinks she had testing completed about 10 years ago at [facility]. Did see notes from Dr. Cuenca 12/18/2015 referencing that patient reports having some neuropsych testing completed by another provider. Mentions asking patient to get a copy to that office, but no notes of this sort in [facility] or in [facility]. Will send fax to [facility] neuropsych office to see if they [...] sclerosis documented in this encounter Care Teams Child Care Assistant Relationship Specialty Start Date End Date Lobito Gonzalez DO [address] [address] PCP - General Internal Medicine 03/09/25 Gail Wyatt MD [address] [place] [address] Medical Oncologist/Carpet Repairer Medical Oncology 07/23/22 documented as of this encounter
--- OUTSIDE RECORDS SUMMARY | 2025-03-24 14:19 | XMS_ITS | Clinical Summary ---
Author Organization [facility] Address [address], [facility] [address] [place] [address] Phone Care Team Providers Care Furniture Dipper Name Role Phone SitaRod munson Primary Care Provider Allergies Active Allergy Reactions Criticality Noted Date Comments Amphetamine-Dextroamphe tamine Other (see Comments) 02/11/2019 Heart palipations Allyl Isothiocyanate Vomiting,Unknown Low 7 Aspartame Other (see Comments) Medium 06/18/2018 Abdominal pain Other reaction(s): Other Abdominal pain Abdominal pain Bacitracin Unknown 02/11/2019 [place] Oil Unknown 02/11/2019 Cefuroxime Unknown 02/11/2019 Coconut [...] Fluticasone Propionate (FLONASE NA)Indications: each nostril 1 [place] by Nasal route daily. Indications: each nostril [...] 175 mcg by mouth daily. Active Tiotropium [place]-Olodate rol (STIOLTO RESPIMAT IN) take 1 Puff [...] mouth daily. Indications: 5MG Active Probiotic Product (Rithmio PO) Take 1 Tab by mouth daily. [...] by mouth daily as needed. Active Pseudoeph-Doxyl btxpe-IY-NGPA (NYQUIL PO) Take by mouth Daily as [...] patient's age to complete this topic [place] [address] [place] [address] Care Teams Furniture Dipper Relationship Specialty Start Date End Date Rod Buckner PAC [address] [facility] [address] [address] PCP - General Physician Booking Police Officer 02/08/19
--- OUTSIDE RECORDS SUMMARY | 2025-03-24 14:19 | XMS_ITS | Encounter Summary ---
Author Organization [facility] Address [address] [place] [address] Phone Care Team Providers Care Radio Antenna Installer Name Role Phone Rod Buckner Primary Care Provider Gail Wyatt MD Unavailable [phone] Lobito Gonzalez DO Primary Care Provider [phone] Encounter Details Date Type Department Care Team (Late st Contact Info) Description 05/08/2021 Telephone [facility] Oncology [address] [facility] 7th [place] [address] [place] [address] Eileen Garcia Social History Tobacco Use Types Packs/Day Years Used Date Smoking Tobacco: Former Smokeless Tobacco: Former Alcohol Use Standard Drinks/Week Comments No 0 (1 standard drink = 0.6 oz pur e alcohol) PHQ-2 Answer Date Recorded PHQ-2 Score 0 07/22/2019 Comments Unknown Sex and Gender Information Value Date Recorded Sex Assigned at Not on file Legal Sex Female 7:38 PM DIRECTOR OF BLOOD Gender Identity Female 06/29/2020 2:02 PM CDT [...] documented as of this encounter Care Teams Radio Antenna Installer Relationship Specialty Start Date End Date Rod Buckner PA [address] [place] [address] PCP - General Physician Professional Employer Consultant 02/15/19 03/08/25 Lobito Gonzalez DO [address] [place] [address] PCP - General Internal Medicine 03/09/25 Gail Wyatt MD [address] [place] [address] Medical Oncologist/Medical Aides Teacher Medical Oncology 07/23/22 documented as of this encounter
--- OUTSIDE RECORDS SUMMARY | 2025-03-24 14:19 | XMS_ITS | Encounter Summary ---
Author Organization [facility] Address [address] [place] [address] Care Team Providers Care Divisional Merchandising Manager Name Role Phone Rod Buckner PA-C Primary Care Provide r Encounter Details Date Type Department Care Team (Late st Contact Info) Description 02/26/2000 Outpatient Historical Division of Neurology [address] [address] Armida Mendez MD [address] [facility] [address] [place] [address] Social History Tobacco Use Types Packs/Day Years Used Date Smoking Tobacco: Never Assessed Comments Unknown Sex and Gender Information Value Date Recorded Sex Assigned at Not on file Legal Sex Female 5:09 AM POLITICAL ANTHROPOLOGIST Gender Identity Not on file Sexual Orientation Not on file documented as of this encounter Plan of Treatment Not on file documented as of this encounter Visit Diagnoses Not on filedocumented in this encounter Care Teams Divisional Merchandising Manager Relationship Specialty Start Date End Date Rod Buckner PA-C PCP - General Physician Electronic Scale Subassembler 10/05/20 documented as of this encounter
--- OUTSIDE RECORDS SUMMARY | 2025-03-24 14:19 | XMS_ITS | Encounter Summary ---
Author Organization [facility] Address [address] [place] [address] Phone Care Team Providers Care Keeler Polygraph Operator Name Role Phone Rod Buckner Primary Care Provider Gail Wyatt MD Unavailable [phone] Lobito Gonzalez DO Primary Care Provider [phone] Encounter Details Date Type Department Care Team [...] on file Legal Sex Female 7:38 PM CLINIC SUPERVISOR Gender Identity Female 06/29/2020 2:02 PM CDT [...] documented as of this encounter Care Teams Keeler Polygraph Operator Relationship Specialty Start Date End Date Rod Buckner PA [address] [place] [address] PCP - General Physician Franchise Sales Representative 02/15/19 03/08/25 Lobito Gonzalez DO [address] [place] [address] PCP - General Internal Medicine 03/09/25 Gail Wyatt MD [address] [place] [address] Medical Oncologist/Entry Level Software Engineer Medical Oncology 07/23/22 documented as of this encounter
--- OUTSIDE RECORDS SUMMARY | 2025-03-24 14:20 | XMS_ITS | Encounter Summary ---
Author Organization [facility] Address [address] [place] [address] Care Team Providers Care Hair Weaver Name Role Phone Rod Buckner PA-C Primary Care Provide r Encounter Details Date Type Department Care Team (Late st Contact Info) Description 07/29/2002 Outpatient Historical Division of Neurology [address] [address] Armida Mendez MD [address] [facility] [address] [place] [address] Social History Tobacco Use Types Packs/Day Years Used Date Smoking Tobacco: Never Assessed Comments Unknown Sex and Gender Information Value Date Recorded Sex Assigned at Not on file Legal Sex Female 5:09 AM CASHIER PAYMENTS RECEIVED Gender Identity Not on file Sexual Orientation Not on file documented as of this encounter Plan of Treatment Not on file documented as of this encounter Visit Diagnoses Not on filedocumented in this encounter Care Teams Hair Weaver Relationship Specialty Start Date End Date Rod Buckner PA-C PCP - General Physician Tufting Machine Operator 10/05/20 documented as of this encounter
--- OUTSIDE RECORDS SUMMARY | 2025-03-24 14:20 | XMS_ITS | Encounter Summary ---
Author Organization [facility] Address [address] [place] [address] Care Team Providers Care Aml Analyst Name Role Phone Rod Buckner PA-C Primary Care Provide r Encounter Details Date Type Department Care Team (Late st Contact Info) Description 10/29/2007 Outpatient Historical [facility] MRI DEPT Armida Mendez MD [address] [facility] [address] [place] [address] Multiple Sclerosis (CMS/HCC) (Primary Dx) Social History Tobacco Use Types Packs/Day Years Used Date Smoking Tobacco: Never Assessed Comments Unknown Sex and Gender Information Value Date Recorded Sex Assigned at Not on file Legal Sex Female 5:09 AM COCONUT JELLY ROLLER Gender Identity Not on file Sexual Orientation Not on file documented as of this encounter Plan of Treatment Not on file documented as of this encounter Visit Diagnoses Diagnosis Multiple sclerosis (CMS/HCC)- Primary Multiple sclerosis documented in this encounter Care Teams Aml Analyst Relationship Specialty Start Date End Date Rod Buckner PA-C PCP - General Physician Lacrosse Coach 10/05/20 documented as of this encounter
--- OUTSIDE RECORDS SUMMARY | 2025-03-24 14:20 | XMS_ITS | Clinical Summary ---
Author Organization [address] Address [address] [place] [address] Care Team Providers Care Network Systems Analyst Name Role Phone Gail Wyatt MD Unavailable [phone] Lobito Gonzalez DO Primary Care Provider [phone] Allergies Active Allergy Reactions Criticality Noted Date [...] Camphor-Methyl Salicylate-Soap Nausea And Vomiting Low 02/04/2017 [place] Oil Nausea And Vomiting Medium 01/28/2017 Cefuroxime [...] Neomycin Unknown Medium 06/12/2015 Other reaction(s): Unknown Bwnyvmla-Poxeeetqk-Xbayjb ine Rash Medium 01/28/2017 Nitrate Analogues Unknown [...] bronchitis, unspecified chronic bronchit is type 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 Assessment & Plan (12/08/2019 10:20 AM WELDER/FITTER): Continue Emgality monthly Continue Botox Should not [...] depression Assessment & Plan (12/08/2019 10:36 AM WELDER/FITTER): Continue following with Dr. Oviedo Asthma 08/24/2015 [...] hypercholesterolemia 09/11/2011 Atherosclerotic heart diseas e of [place] coronary artery without angina pectoris 09/10/2011 Edema 09/10/2011 Essential (primary) hypertension 09/10/2011 Heart failure, unspecified ([facility]) 09/10/2011 Multiple sclerosis ([facility]) 12/07/2008 Assessment & Plan (09/21/2024 10:28 [...] did go to [facility] in the past, but left when she [...] that she completed MRI imaging at an [facility] in September 2022 but [...] acetate seems reasonable. She received her 1st SMS GupShup COVID-19 vaccine on January 29, 2021. Baclofen [...] discussed. 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 I told her she should not inject in those areas and that the medication maybe less effective is she is injecting in non-approved sites. Patient declines talk of oral medication options. Continue Copaxone 20mg daily per patient preference Continue exercise Discussed weight loss and nutrition. Will also provide her with Toya Valladares EXPERIMENTAL PREFLIGHT MECHANIC phone number Follow up with Dr. Brennan [...] T1bN0(i-)M0, stage IA. ER pos 100% (strong), MS pos 100% (strong), Her-2 neg (0 on [...] Type Department Care Team Description 03/13/2025 Telephone [facility] [address] [facility] [address] [address] Janeth Escoto RN 03/09/2025 10:00 AM CDT Office Visit [facility] [address] [facility] [address] [place] [address] Antony Brennan MD Multiple sclerosis [...] Multiple sclerosis (HCC) 05/31/2013 MS; Com ments: [facility] 08/13/2015 - Rhinitis Rhinitis; Commen ts: [facility] 08/13/2015 - Hypothyroidism Hypothyroidism; Comments: [facility] 08/13/2015 - Depression Depression Hx Other Medical 04/11/2015 EGD; Comments: [facility] 10/23/2015 - Asthma Asthma Vertigo Vertigo; Comment s: [facility] 10/15/2016 - Hx Other Medical Migraines; Comm ents: [facility] 10/15/2016 - Hypertension Heart disease Headache Sleep [...] on file Legal Sex Female 7:38 PM WELDER/FITTER Gender Identity Female 06/29/2020 2:02 PM CDT Sexual Orientation Not on file Obstetrics History Last Filed Vital Signs Vital Sign Reading Time Taken Comments Blood Pressure 112/70 03/09/2025 10:16 AM CDT Pulse 88 03/09/2025 10:16 AM CDT Temperature 36.7 C (98 F) 03/09/2025 10:16 AM CDT Respiratory Rate 20 12/08/2024 11:1 4 AM WELDER/FITTER Oxygen Saturation 96% 03/09/2025 10: 16 AM [...] breast in female, estrogen receptor positive (HCC) 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 Based on machine cross-calibration and [...] by the International Society of Clinical Densitometry. [id number] Gail Wyatt MD IMG DXA PROCEDURES F inal Result * Hepatitis panel, acute (12/22/2018 1:58 PM WELDER/FITTER) Hep A IgM NON-REACTIVE NON-REAC TIVE [facility] [place] Comment [facility] [place] Comment: WE RECEIVED YOUR HANDWRITTEN TEST ORDER AND PERFORMED AN ACUTE HEPATITIS PANEL. IF THIS IS NOT WHAT YOU INTENDED TO ORDER, PLEASE CONTACT YOUR LOCAL ADMINISTRATIVE SERVICES MANAGER IMMEDIATELY SO THAT WE CAN ADJUST [...] INTENDED TO ORDER, PLEASE CONTACT YOUR LOCAL ADMINISTRATIVE SERVICES MANAGER IMMEDIATELY SO THAT WE CAN ADJUST OUR BILLING APPROPRIATELY. YOU MAY ALSO INQUIRE ABOUT ALTERNATIVE OR ADDITIONAL TESTING. Hep B core IgM NON-REACTIVE NON-REAC TIVE [facility] [place] [facility] [place] Comment: WE RECEIVED YOUR HANDWRITTEN TEST ORDER AND PERFORMED AN ACUTE HEPATITIS PANEL. IF THIS IS NOT WHAT YOU INTENDED TO ORDER, PLEASE CONTACT YOUR LOCAL ADMINISTRATIVE SERVICES MANAGER IMMEDIATELY SO THAT WE CAN ADJUST [...] INTENDED TO ORDER, PLEASE CONTACT YOUR LOCAL ADMINISTRATIVE SERVICES MANAGER IMMEDIATELY SO THAT WE CAN ADJUST OUR BILLING APPROPRIATELY. YOU MAY ALSO INQUIRE ABOUT ALTERNATIVE OR ADDITIONAL TESTING. 12/22/2018 1:58 PM WELDER/FITTER 12/22/2018 2:01 PM WELDER/FITTER Narrative Resulting Agency Comment Performing Organization Information: Site ID: MD Name: [facility] Address: [address] [address] Director: Amandeep Suárez D.O., MPH us Antony Brennan MD LAB MICROBIOLOGY - GENERAL OR DERABLES Final Result Performing Organization Address City/State/ZIP Co wy Phone Number [facility] [place] from Last 3 Months or Most Recently Relevant to Health Maintenance Insurance MEDICARE ADVANTAGE [facility] Address: [address] [address] [place] [address] [facility] Address: [address] [address] [place] [phone] Care Teams Network Systems Analyst Relationship Specialty Start Date End Date Lobito Gonzalez DO [address] [place] [address] PCP - General Internal Medicine 03/09/25 Gail Wyatt MD [address] [place] [address] Medical Oncologist/Roller Man Medical Oncology 07/23/22
--- OUTSIDE RECORDS SUMMARY | 2025-03-24 14:20 | XMS_ITS | Encounter Summary ---
Author Organization [facility] Address [address] [place] [address] Care Team Providers Care Tractor Operator Battery Name Role Phone Rod Buckner PA-C Primary Care Provide r Encounter Details Date Type Department Care Team (Latest Contact Info) Description 02/26/2000 Outpatient Historical [facility] [place] Beard V., [place] [address] [place] [address] Multiple sclerosis (CMS/HCC) (Primary Dx) Social History Tobacco Use Types Packs/Day Years Used Date Smoking Tobacco: Never Assessed Comments Unknown Sex and Gender Information Value Date Recorded Sex Assigned at Not on file Legal Sex Female 5:09 AM MARBLE COPER Gender Identity Not on file Sexual Orientation Not on file documented as of this encounter Plan of Treatment Not on file documented as of this encounter Visit Diagnoses Diagnosis Multiple sclerosis (CMS/HCC)- Primary Multiple sclerosis documented in this encounter Care Teams Tractor Operator Battery Relationship Specialty Start Date End Date Rod Buckner PA-C PCP - General Physician Trackman 10/05/20 documented as of this encounter
--- OUTSIDE RECORDS SUMMARY | 2025-03-24 14:20 | XMS_ITS | Encounter Summary ---
Author Organization [facility] Address [address] [place] [address] Care Team Providers Care Central Communications Specialist Name Role Phone Rod Buckner PA-C Primary Care Provide r Encounter Details Date Type Department Care Team (Latest Contact Info) Description 04/03/2008 Outpatient Historical [facility] [address] [place] [address] Armida Mendez MD [address] [facility] [address] [place] [address] Multiple Sclerosis (CMS/HCC) (Primary Dx) Social History Tobacco Use Types Packs/Day Years Used Date Smoking Tobacco: Never Assessed Comments Unknown Sex and Gender Information Value Date Recorded Sex Assigned at Not on file Legal Sex Female 5:09 AM RIVET TOSSER Gender Identity Not on file Sexual Orientation Not on file documented as of this encounter Plan of Treatment Not on file documented as of this encounter Visit Diagnoses Diagnosis Multiple sclerosis (CMS/HCC)- Primary Multiple sclerosis documented in this encounter Care Teams Central Communications Specialist Relationship Specialty Start Date End Date Rod Buckner PA-C PCP - General Physician Terrazzo Mechanic Helper 10/05/20 documented as of this encounter
--- OUTSIDE RECORDS SUMMARY | 2025-03-24 14:20 | XMS_ITS | Encounter Summary ---
Author Organization [facility] Address [address] [place] [address] Care Team Providers Care Gm Mobile Name Role Phone Rod Buckner PA-C Primary Care Provide r Encounter Details Date Type Department Care Team (Late st Contact Info) Description 07/29/2002 Outpatient Historical [facility] MRI DEPT Dipak Perry MD [address] [address] SWELLING IN HEAD & NECK (Primary Dx) Social History Tobacco Use Types Packs/Day Years Used Date Smoking Tobacco: Never Assessed Comments Unknown Sex and Gender Information Value Date Recorded Sex Assigned at Not on file Legal Sex Female 5:09 AM RESTAURANT SHIFT LEADER Gender Identity Not on file Sexual Orientation Not on file documented as of this encounter Plan of Treatment Not on file documented as of this encounter Visit Diagnoses Diagnosis Swelling, mass, or lump in head and neck- Primary documented in this encounter Care Teams Gm Mobile Relationship Specialty Start Date End Date Rod Buckner PA-C PCP - General Physician Optical Glass Sawyer 10/05/20 documented as of this encounter
--- OUTSIDE RECORDS SUMMARY | 2025-03-24 14:20 | XMS_ITS | CONTINUITY OF CARE DOCUMENT ---
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 ;ON RX PER PRIMARYHTN;LABS PER PRIMARYCAD;NEG CATH 06, NEG ECHO 08OBESITY;DID NOT WANT MEDIFASTCHF;NML BNP 09HYPERCHOLESTEROLEMI A;DEFERS STATINTOBACCO ABUSEEDEMA;CONTROLLED WITH LASIX;DOES NOT WANT RUIZ - In-person encounter Office Visit Favain Engle MD [facility] MICROVASCULAR ANGINA;HELPED BY NILAL APNEA:NON COMPLIANTECP VITAL SIGNS Date Observation Value [...] Foley RN weight E&M 220 [lb_av] Zach oFley RN blood pressure, diastolic, left arm 78 [...] every other day [place] VITAMIN D 78959 UNIT CAPS active 1 capsule weekly for 8 weeks then 1 every month [facility] SUCRALFATE 1 GM ORAL TABLET active 1 tablet by mouth four times daily [facility] PREVIDENT 56GM active [place] teeth with gel at bedtime [facility] [place]uston [...] use, averag e drinks per day no [facility] alcohol use, average drinks per day none [facility] smoking status Quit [facility] MENTAL STATUS Date Observation Value Provider [...] Coverage type Ilan red republican ID [facility] [employer] [id number] TREATMENT PLAN Date Name Performer routine Favian [...] microvacular CAD. E CP should be considered. [facility] (01/14/2006) C HOL: 232 (12/26/2008) LDL: [...] microvacular CAD. E CP should be considered. [facility] (01/14/2006) C HOL: 232 (12/26/2008) LDL: [...] microvacular CAD. E CP should be considered. [facility] (01/14/2006) C HOL: 232 (12/26/2008) LDL: [...] microvacular CAD. E CP should be considered. [facility] (01/14/2006) C HOL: 232 (12/26/2008) LDL: [...] microvacular CAD. E CP should be considered. [facility] (01/14/2006) Echocardiogram: EF - 65%. L V chamber size is normal. T race tricuspid regurgitation. [facility] (12/15/2007) Favian Engle MD office visit Favian [...] daily BP today: 127/79 Orders: E KG ([id number]-[id number]) Favian Engle MD office visit Favian Engle [...]
--- OUTSIDE RECORDS SUMMARY | 2025-03-24 14:20 | XMS_ITS | Encounter Summary ---
Author Organization [facility] Address [address] [place] [address] Care Team Providers Care Laboratory Secretary Name Role Phone Rod Buckner PA-C Primary Care Provide r Encounter Details Date Type Department Care Team (Late st Contact Info) Description 06/06/2008 Outpatient Historical [facility] [address] [place] [address] Armida Mendez MD [address] [facility] [address] [address] Social History Tobacco Use Types Packs/Day Years Used Date Smoking Tobacco: Never Assessed Comments Unknown Sex and Gender Information Value Date Recorded Sex Assigned at Not on file Legal Sex Female 5:09 AM LOCK AND DAM OPERATOR Gender Identity Not on file Sexual Orientation Not on file documented as of this encounter Plan of Treatment Not on file documented as of this encounter Visit Diagnoses Not on filedocumented in this encounter Care Teams Laboratory Secretary Relationship Specialty Start Date End Date Rod Buckner PA-C PCP - General Physician Marker Shipments 10/05/20 documented as of this encounter
--- OUTSIDE RECORDS SUMMARY | 2025-03-24 14:20 | XMS_ITS | Encounter Summary ---
Author Organization [facility] Address [address] [place] [address] Care Team Providers Care Helper Shear Operator Name Role Phone Rod Buckner PA-C [...] on file Legal Sex Female 5:09 AM INDUSTRIAL REAL ESTATE AGENT Gender Identity Not on file Sexual Orientation Not on file documented as of this encounter Plan of Treatment Not on file documented as of this encounter Visit Diagnoses Diagnosis Displacement of cervical intervertebral disc without myelopathy- Primary documented in this encounter Care Teams Helper Shear Operator Relationship Specialty Start Date End Date Rod Buckner PA-C PCP - General Physician Stem Setter 10/05/20 documented as of this encounter
--- OUTSIDE RECORDS SUMMARY | 2025-03-24 14:20 | XMS_ITS | Encounter Summary ---
Author Organization [facility] Address [address] [place] [address] Care Team Providers Care Trials Manager Name Role Phone Rod Buckner PA-C Primary Care Provide r Zuly Miller MD Unavailable [phone] Ayan Orozco AIRPLANE GASTANK LINER ASSEMBLER-PERL PROGRAMMER Primary Care Provider Reason for Visit * Reason Onset Date Comments Appointment 03/29/2021 Encounter Details Date Type Department Care Team (Late st Contact Info) Description 03/29/2021 Telephone [facility] [address] [place] [address] Bebe Faulkner MD [address] [facility] [address] [place] [address] Appointment Social History Tobacco Use [...] on file Legal Sex Female 12:42 PM PLASTIC PRINTER Gender Identity Not on file Sexual [...] NIPPLES AND BREAST PATIENT CALL BACK NUMBER [phone] IS THE PATIENT ESTABLISHED NO IS THE PATIENT NEW YES DOES THE PATIENT NEED IMAGING WES IS THE APPOINTMENT MORE THAN 2-3 WEEKS OUT? 5.19 IS NEXT AVAIL. WHEN SHOULD I SCHEDULE? documented in this encounter Plan of Treatment Upcoming Encounters Date Type Department Care Team (Late st Contact Info) Description 04/12/2025 9:30 AM CDT Office Visit [facility] - Urology [address] [facility], [place] [phone] Ni Thapa M, [address] [facility] 2L [place] [address] 05/17/2025 10:00 AM CDT Appointment [facility] OP [address] [place] [address] Lizet Contreras, AIRPLANE GASTANK LINER ASSEMBLER-PERL PROGRAMMER [address] [place] [address] 05/31/2025 9:00 AM CDT Office Visit [facility] - GI [address] [facility], [place] [address] Isai Leon MD [address] [place] [address] 08/16/2025 10:00 AM CDT Appointment [facility] [address] [place] [address] [place] [address] [facility] [address] [place] [address] 08/16/2025 10:40 AM CDT Office Visit [facility] - Hematology/Oncology [address] [place] [phone] Zuly Miller MD [address] [facility] [address] [place] [address] 08/21/2025 11:30 AM CDT Office Visit [facility] - General Surgery [address] [place] [address] Bebe Faulkner MD [address] [facility] [address] [place] [address] documented as of this encounter Goals Goal Patient Goal Type Associated Problems Recent Progress Patient-Stated? Author Safety General On track( 024 2:13 PM PLASTIC PRINTER) No Ml Livingston, RN Note: Expected end date: Ongoing Interventions: Your nurse will assess your risk for falls/injury each visit Use appropriate and safe transfer methods Medication Management General On track( 024 2:13 PM PLASTIC PRINTER) Ml Serra, KIERA Note: Expected end date: Ongoing Interventions: Take all medications as prescribed Let your doctor know right away about any changes in your medications documented as of this encounter Visit Diagnoses Not on filedocumented in this encounter Care Teams Trials Manager Relationship Specialty Start Date End Date Rod Buckner PA-C [address] [facility] [address] [place] [address] PCP - General 02/18/19 02/21/25 Ayan Orozco, AIRPLANE GASTANK LINER ASSEMBLER-PERL PROGRAMMER [address] [place] [address] PCP - General Nurse Practitioner 02/22/25 Zuly Miller MD [address] [place] [address] Hematology and Oncology 02/17/24 documented as of this encounter
--- OUTSIDE RECORDS SUMMARY | 2025-03-24 14:20 | XMS_ITS | Encounter Summary ---
Author Organization [employer] Address [address] [place] [address] Care Team Providers Care Cryptographic Machine Operator Name Role Phone Rod Buckner PA-C Primary Care Provide r Encounter Details Date Type Department Care Team (Late st Contact Info) Description 08/06/2004 Outpatient Historical Division of Neurology [address] [address] Armida Mendez MD [address] [facility] [address] [place] [address] Social History Tobacco Use Types Packs/Day Years Used Date Smoking Tobacco: Never Assessed Comments Unknown Sex and Gender Information Value Date Recorded Sex Assigned at Not on file Legal Sex Female 5:09 AM PLANT SCIENCE PROFESSOR Gender Identity Not on file Sexual Orientation Not on file documented as of this encounter Plan of Treatment Not on file documented as of this encounter Visit Diagnoses Not on filedocumented in this encounter Care Teams Cryptographic Machine Operator Relationship Specialty Start Date End Date Rod Buckner PA-C PCP - General Physician Coordinate Measuring Equipment Operator 10/05/20 documented as of this encounter
--- OUTSIDE RECORDS SUMMARY | 2025-03-24 14:20 | XMS_ITS | Encounter Summary ---
Author Organization [facility] Address [address] [place] [address] Care Team Providers Care Machine Sorter Name Role Phone Rod Buckner PA-C Primary Care Provide r Zuly Milelr MD Unavailable [phone] Ayan Orozco MATH INSTRUCTOR-CATEGORY DEVELOPMENT ANALYST Primary Care Provider Encounter Details Date Type Department Care Team (Late st Contact Info) Description 05/22/2022 Patient Outreach [facility] [address] [place] [phone] Shanice Hernandez, RN Social History Tobacco Use [...] on file Legal Sex Female 12:42 PM PLASMA PROCESSING CENTRIFUGE OPERATOR Gender Identity Not on file Sexual [...] Office Visit [facility] - Urology [address] [place] [address], [place] [address] Ni Thapa, [address] [place] [address] 05/17/2025 10:00 AM CDT Appointment [facility] RAD OP [address] [place] [address] Lizet Contreras, MATH INSTRUCTOR-CATEGORY DEVELOPMENT ANALYST [address] [place] [address] 05/31/2025 9:00 AM CDT Office Visit [facility] - GI [address] [facility], [place] [address] Isai Leon MD [address] [place] [address] 08/16/2025 10:00 AM CDT Appointment [facility] [address] [place] [address] [place] [address] [facility] [address] [place] [address] 08/16/2025 10:40 AM CDT Office Visit [facility] - Hematology/Oncology [address] [place] [phone] Zuly Miller MD [address] [facility] 3 [place] [address] 08/21/2025 11:30 AM CDT Office Visit [facility] - General Surgery [address] [place] [phone] Bebe Faulkner MD [address] [facility] [address] [place] [address] documented as of this encounter Goals Goal Patient Goal Type Associated Problems Recent Progress Patient-Stated? Author Safety General On track( 024 2:13 PM PLASMA PROCESSING CENTRIFUGE OPERATOR) Ml Serra, RN Note: Expected end date: Ongoing Interventions: Your nurse will assess your risk for falls/injury each visit Use appropriate and safe transfer methods Medication Management General On track( 024 2:13 PM PLASMA PROCESSING CENTRIFUGE OPERATOR) Ml Serra, RN Note: Expected end date: Ongoing Interventions: Take all medications as prescribed Let your doctor know right away about any changes in your medications documented as of this encounter Visit Diagnoses Not on filedocumented in this encounter Care Teams Machine Sorter Relationship Specialty Start Date End Date Rod Buckner PA-C [address] [place] [address] PCP - General 02/18/19 02/21/25 Ayan Orozco APRN-CATEGORY DEVELOPMENT ANALYST [address] [place] [address] PCP - General Nurse Practitioner 02/22/25 Zuly Miller MD [address] [facility] 3 [place] [address] Hematology and Oncology 02/17/24 documented as of this encounter
--- OUTSIDE RECORDS SUMMARY | 2025-03-24 14:20 | XMS_ITS | Encounter Summary ---
Author Organization [employer] Address [address] [place] [address] Care Team Providers Care Ultrasound Spec Name Role Phone Rod Buckner PA-C Primary Care Provide r Encounter Details Date Type Department Care Team (Late st Contact Info) Description 02/02/2001 Outpatient Historical Division of Neurology [address] [address] Armida Mendez MD [address] [facility] [address] [place] [address] Social History Tobacco Use Types Packs/Day Years Used Date Smoking Tobacco: Never Assessed Comments Unknown Sex and Gender Information Value Date Recorded Sex Assigned at Not on file Legal Sex Female 5:09 AM BRAND MANAGER Gender Identity Not on file Sexual Orientation Not on file documented as of this encounter Plan of Treatment Not on file documented as of this encounter Visit Diagnoses Not on filedocumented in this encounter Care Teams Ultrasound Spec Relationship Specialty Start Date End Date Rod Buckner PA-C PCP - General Physician Radio Presenter 10/05/20 documented as of this encounter
--- OUTSIDE RECORDS SUMMARY | 2025-03-24 14:20 | XMS_ITS | Encounter Summary ---
Author Organization [facility] Address [address] [place] [address] Care Team Providers Care Beck Tender Name Role Phone Rod Buckner PA-C Primary Care Provide r Encounter Details Date Type Department Care Team (Late st Contact Info) Description 10/16/2008 Outpatient Historical [facility] Hand Therapy [address] [place] [address] Armida Mendez MD [address] [facility] [address] [place] [address] Social History Tobacco Use Types Packs/Day Years Used Date Smoking Tobacco: Never Assessed Comments Unknown Sex and Gender Information Value Date Recorded Sex Assigned at Not on file Legal Sex Female 5:09 AM SALES REPRESENTATIVE PRINTING PAPER Gender Identity Not on file Sexual Orientation Not on file documented as of this encounter Plan of Treatment Not on file documented as of this encounter Visit Diagnoses Not on filedocumented in this encounter Care Teams Beck Tender Relationship Specialty Start Date End Date Rod Buckner PA-C PCP - General Physician Installation Specialist 10/05/20 documented as of this encounter
--- OUTSIDE RECORDS SUMMARY | 2025-03-24 14:20 | XMS_ITS | Encounter Summary ---
Author Organization [facility] Address [address] [place] [address] Care Team Providers Care Turf Grower Name Role Phone Rod Buckner PA-C Primary Care Provide r Encounter Details Date Type Department Care Team (Late st Contact Info) Description 04/29/2003 Outpatient Historical [facility] MRI DEPT Armida Mendez MD [address] [facility] [address] [place] [phone] MULTIPLE SCLEROSIS (CMS/HCC) (Primary Dx) Social History Tobacco Use Types Packs/Day Years Used Date Smoking Tobacco: Never Assessed Comments Unknown Sex and Gender Information Value Date Recorded Sex Assigned at Not on file Legal Sex Female 5:09 AM NET MOBILE DEVELOPER Gender Identity Not on file Sexual Orientation Not on file documented as of this encounter Plan of Treatment Not on file documented as of this encounter Visit Diagnoses Diagnosis Multiple sclerosis (CMS/HCC)- Primary Multiple sclerosis documented in this encounter Care Teams Turf Grower Relationship Specialty Start Date End Date Rod Buckner PA-C PCP - General Physician Board Catcher 10/05/20 documented as of this encounter
--- OUTSIDE RECORDS SUMMARY | 2025-03-24 14:20 | XMS_ITS | Encounter Summary ---
Author Organization [facility] Address [address] [place] [address] Care Team Providers Care Hematologist Oncologist Name Role Phone Rod Buckner PA-C Primary Care Provide r Encounter Details Date Type Department Care Team (Late st Contact Info) Description 05/22/2007 Outpatient Historical [facility] MRI DEPT Armida Mendez MD [address] [facility] [address] [place] [address] Multiple Sclerosis (CMS/HCC) (Primary Dx) Social History Tobacco Use Types Packs/Day Years Used Date Smoking Tobacco: Never Assessed Comments Unknown Sex and Gender Information Value Date Recorded Sex Assigned at Not on file Legal Sex Female 5:09 AM SUPPORT DBA Gender Identity Not on file Sexual Orientation Not on file documented as of this encounter Plan of Treatment Not on file documented as of this encounter Visit Diagnoses Diagnosis Multiple sclerosis (CMS/HCC)- Primary Multiple sclerosis documented in this encounter Care Teams Hematologist Oncologist Relationship Specialty Start Date End Date Rod Buckner PA-C PCP - General Physician Safety Compliance Specialist 10/05/20 documented as of this encounter
--- OUTSIDE RECORDS SUMMARY | 2025-03-24 14:20 | XMS_ITS | Encounter Summary ---
Author Organization [employer] Address [address] [place] [address] Care Team Providers Care News Editor Name Role Phone Rod Buckner PA-C Primary Care Provide r Encounter Details Date Type Department Care Team (Late st Contact Info) Description 12/04/2000 Outpatient Historical Division of Neurology [address] [address] Armida Mendez MD [address] [facility] [address] [place] [address] Social History Tobacco Use Types Packs/Day Years Used Date Smoking Tobacco: Never Assessed Comments Unknown Sex and Gender Information Value Date Recorded Sex Assigned at Not on file Legal Sex Female 5:09 AM SURGICAL ELASTIC KNITTER Gender Identity Not on file Sexual Orientation Not on file documented as of this encounter Plan of Treatment Not on file documented as of this encounter Visit Diagnoses Not on filedocumented in this encounter Care Teams News Editor Relationship Specialty Start Date End Date Rod Buckner PA-C PCP - General Physician Training Professional 10/05/20 documented as of this encounter
--- OUTSIDE RECORDS SUMMARY | 2025-03-24 14:20 | XMS_ITS | Encounter Summary ---
Author Organization [facility] Address [address] [place] [address] Care Team Providers Care Chassis Wirer Name Role Phone Rod Buckner PA-C [...] on file Legal Sex Female 5:09 AM LEARNING SUPPORT ASSISTANT Gender Identity Not on file Sexual Orientation Not on file documented as of this encounter Plan of Treatment Not on file documented as of this encounter Visit Diagnoses Diagnosis Multiple sclerosis (CMS/HCC)- Primary Multiple sclerosis documented in this encounter Care Teams Chassis Wirer Relationship Specialty Start Date End Date Rod Buckner PA-C PCP - General Physician Shingle Bolt Cutter 10/05/20 documented as of this encounter
--- OUTSIDE RECORDS SUMMARY | 2025-03-24 14:20 | XMS_ITS | Encounter Summary ---
Author Organization [employer] Address [address] [place] [address] Care Team Providers Care Construction Engineer Name Role Phone Rod Buckner PA-C Primary Care Provide r Encounter Details Date Type Department Care Team (Latest Contact Info) Description 02/16/2001 Outpatient Historical [facility] OP NEUROLOGY Armida Mendez MD [address] [facility] [address] [place] [address] Multiple sclerosis (CMS/HCC) (Primary Dx) Social History Tobacco Use Types Packs/Day Years Used Date Smoking Tobacco: Never Assessed Comments Unknown Sex and Gender Information Value Date Recorded Sex Assigned at Not on file Legal Sex Female 5:09 AM ELECTRIC REFRIGERATOR SERVICER Gender Identity Not on file Sexual Orientation Not on file documented as of this encounter Plan of Treatment Not on file documented as of this encounter Visit Diagnoses Diagnosis Multiple sclerosis (CMS/HCC)- Primary Multiple sclerosis documented in this encounter Care Teams Construction Engineer Relationship Specialty Start Date End Date Rod Buckner PA-C PCP - General Physician Manager Intermediate 10/05/20 documented as of this encounter
--- OUTSIDE RECORDS SUMMARY | 2025-03-24 14:20 | XMS_ITS | Encounter Summary ---
Author Organization [employer] Address [address] [place] [address] Care Team Providers Care Drum Stenciler Name Role Phone Rod Buckner PA-C Primary Care Provide r Encounter Details Date Type Department Care Team (Late st Contact Info) Description 07/21/2000 Outpatient Historical Division of Neurology [address] [address] Armida Mendez MD [address] [facility] [address] [place] [address] Social History Tobacco Use Types Packs/Day Years Used Date Smoking Tobacco: Never Assessed Comments Unknown Sex and Gender Information Value Date Recorded Sex Assigned at Not on file Legal Sex Female 5:09 AM SECURITY INSTALLATION SALES TECHNICIAN Gender Identity Not on file Sexual Orientation Not on file documented as of this encounter Plan of Treatment Not on file documented as of this encounter Visit Diagnoses Not on filedocumented in this encounter Care Teams Drum Stenciler Relationship Specialty Start Date End Date Rod Buckner PA-C PCP - General Physician Teletype Clerk 10/05/20 documented as of this encounter
--- OUTSIDE RECORDS SUMMARY | 2025-03-24 14:20 | XMS_ITS | Encounter Summary ---
Author Organization [employer] Address [address] [place] [address] Care Team Providers Care Golf Ball Molder Name Role Phone oRd Buckner PA-C Primary Care Provide r Encounter Details Date Type Department Care Team (Late st Contact Info) Description 10/20/2006 Outpatient Historical Division of Neurology [address] [address] Armida Mendez MD [address] [facility] [address] [place] [address] Social History Tobacco Use Types Packs/Day Years Used Date Smoking Tobacco: Never Assessed Comments Unknown Sex and Gender Information Value Date Recorded Sex Assigned at Not on file Legal Sex Female 5:09 AM MANAGER FORENSIC Gender Identity Not on file Sexual Orientation Not on file documented as of this encounter Plan of Treatment Not on file documented as of this encounter Visit Diagnoses Not on filedocumented in this encounter Care Teams Golf Ball Molder Relationship Specialty Start Date End Date Rod Buckner PA-C PCP - General Physician Welder/Installer 10/05/20 documented as of this encounter
--- OUTSIDE RECORDS SUMMARY | 2025-03-24 14:20 | XMS_ITS | Encounter Summary ---
Author Organization [employer] Address [address] [place] [address] Care Team Providers Care Sleeve Setter Safety Stitch Name Role Phone Rod Buckner PA-C Primary Care Provide r Encounter Details Date Type Department Care Team (Latest Contact Info) Description 11/07/2008 Outpatient Historical [facility] González Roy MD [address] [place] [address] Unspecified Asthma Social History Tobacco Use Types Packs/Day Years Used Date Smoking Tobacco: Never Assessed Comments Unknown Sex and Gender Information Value Date Recorded Sex Assigned at Not on file Legal Sex Female 5:09 AM CAN SOLDERER Gender Identity Not on file Sexual Orientation Not on file documented as of this encounter Plan of Treatment Not on file documented as of this encounter Procedures Procedure Name Priority Date/Time Associated Diagnosis Comments BLOOD GAS ARTERIAL WITH HGB & HCT Routine 11/07/2008 9:10 AM CAN SOLDERER documented in this encounter Results * BLOOD GAS ARTERIAL WITH HGB & HCT (11/07/2008 9:10 AM CAN SOLDERER) O2 CONC ARTERIAL 21 [facility] FO2HB ABG 96 94 - 98 % [facility] BASE EXCESS ABG -0.8 -2.0 - 3.0 mmol/L [facility] HEMATOCRIT ABG 43.0 35.5 - 44.0 % [facility] PO2 ARTERIAL 87 83 - 108 mm Hg [facility] PH ARTERIAL 7.41 7.35 - 7.45 [facility] SO2 ABG 97 95 - 99 % [facility] HCO3 ARTERIAL 23 22 - 26 mmol/L [facility] HEMOGLOBIN ABG 14.0 11.8 - 14.8 g/dL [facility] PCO2 ARTERIAL 37 35 - 48 mm Hg [facility] Arterial blood specimen (specimen) 11/07/2008 9:10 AM CAN SOLDERER 11/07/2008 9:29 AM CAN SOLDERER us González Roy MD ABG ORDERABLES Final Result Performing Organization Address City/State/[facility] Co de Phone Number INTERFACE SYSTEM Refer to clinic/hospital department [facility] CLIA# [id number] [address] [place] [address] documented in this encounter Visit Diagnoses Diagnosis Unspecified asthma(493.90) Unspecified asthma documented in this encounter Care Teams Sleeve Setter Safety Stitch Relationship Specialty Start Date End Date Rod Buckner PA-C PCP - General Physician Credit And Collection Manager 10/05/20 documented as of this encounter
--- OUTSIDE RECORDS SUMMARY | 2025-03-24 14:20 | XMS_ITS | Encounter Summary ---
Author Organization [facility] Address [address] [place] [address] Care Team Providers Care Chauffeur Airport Limousine Name Role Phone Rod Buckner PA-C Primary Care Provide r Encounter Details Date Type Department Care Team (Latest Contact Info) Description 09/14/2008 Outpatient Historical [facility] [address] [place] [address] Armida Mendez MD [address] [facility] [address] [place] [address] Multiple Sclerosis (CMS/HCC) (Primary Dx) Social History Tobacco Use Types Packs/Day Years Used Date Smoking Tobacco: Never Assessed Comments Unknown Sex and Gender Information Value Date Recorded Sex Assigned at Not on file Legal Sex Female 5:09 AM JBOSS ARCHITECT Gender Identity Not on file Sexual Orientation Not on file documented as of this encounter Plan of Treatment Not on file documented as of this encounter Visit Diagnoses Diagnosis Multiple sclerosis (CMS/HCC)- Primary Multiple sclerosis documented in this encounter Care Teams Chauffeur Airport Limousine Relationship Specialty Start Date End Date Rod Buckner PA-C PCP - General Physician Last Inserter 10/05/20 documented as of this encounter
--- OUTSIDE RECORDS SUMMARY | 2025-03-24 14:20 | XMS_ITS | Encounter Summary ---
Author Organization [employer] Address [address] [place] [address] Care Team Providers Care Fitness Floor Attendant Name Role Phone Rod Buckner PA-C Primary Care Provide r Encounter Details Date Type Department Care Team (Late st Contact Info) Description 05/04/2003 Outpatient Historical Division of Neurology [address] [address] Armida Mendez MD [address] [facility] [address] [place] [address] Social History Tobacco Use Types Packs/Day Years Used Date Smoking Tobacco: Never Assessed Comments Unknown Sex and Gender Information Value Date Recorded Sex Assigned at Not on file Legal Sex Female 5:09 AM SUPERVISOR COMMISSARY PRODUCTION Gender Identity Not on file Sexual Orientation Not on file documented as of this encounter Plan of Treatment Not on file documented as of this encounter Visit Diagnoses Not on filedocumented in this encounter Care Teams Fitness Floor Attendant Relationship Specialty Start Date End Date Rod Buckner PA-C PCP - General Physician Drip Molder 10/05/20 documented as of this encounter
--- OUTSIDE RECORDS SUMMARY | 2025-03-24 14:20 | XMS_ITS | Encounter Summary ---
Author Organization [employer] Address [address] [place] [address] Care Team Providers Care Mash Filter Cloth Changer Name Role Phone Rod Buckner PA-C Primary Care Provide r Encounter Details Date Type Department Care Team (Late st Contact Info) Description 03/12/2000 Outpatient Historical Division of Neurology [address] [address] Armida Mendez MD [address] [facility] [address] [place] [address] Social History Tobacco Use Types Packs/Day Years Used Date Smoking Tobacco: Never Assessed Comments Unknown Sex and Gender Information Value Date Recorded Sex Assigned at Not on file Legal Sex Female 5:09 AM LICENSED APPRAISER Gender Identity Not on file Sexual Orientation Not on file documented as of this encounter Plan of Treatment Not on file documented as of this encounter Visit Diagnoses Not on filedocumented in this encounter Care Teams Mash Filter Cloth Changer Relationship Specialty Start Date End Date Rod Buckner PA-C PCP - General Physician Social Security Assessor 10/05/20 documented as of this encounter
--- OUTSIDE RECORDS SUMMARY | 2025-03-24 14:20 | XMS_ITS | Encounter Summary ---
Author Organization [employer] Address [address] [place] [address] Care Team Providers Care Shell Trim Tool Setter Name Role Phone Rod Buckner PA-C Primary Care Provide r Encounter Details Date Type Department Care Team (Latest Contact Info) Description 03/20/2001 Outpatient Historical [facility] Armida Mendez MD [address] [facility] [address] [place] [address] Multiple sclerosis (CMS/HCC) (Primary Dx) Social History Tobacco Use Types Packs/Day Years Used Date Smoking Tobacco: Never Assessed Comments Unknown Sex and Gender Information Value Date Recorded Sex Assigned at Not on file Legal Sex Female 5:09 AM GLASS CUTTER HELPER Gender Identity Not on file Sexual Orientation Not on file documented as of this encounter Plan of Treatment Not on file documented as of this encounter Visit Diagnoses Diagnosis Multiple sclerosis (CMS/HCC)- Primary Multiple sclerosis documented in this encounter Care Teams Shell Trim Tool Setter Relationship Specialty Start Date End Date Rod Buckner PA-C PCP - General Physician Clinical Marketing Manager 10/05/20 documented as of this encounter
--- OUTSIDE RECORDS SUMMARY | 2025-03-24 14:20 | XMS_ITS ---
Author Organization [address] Address [address] [place] [address] Care Team Providers Care Real Estate Officer Name Role Phone Gail Wyatt MD Unavailable [phone] Lobito Gonzalez DO Primary Care Provider [phone] Active Problems Problem Noted Date Diagnosed Date Renal mass, left 03/10/2025 Asthma in adult, mild persistent, uncomplicated 11/08/2024 Chronic bronchitis, unspecified chronic bronchit is type 04/01/2024 longterm (current) use of aromatase inhibitors 08/15/2022 Acquired absence of both breasts 02/07/2021 Malignant neoplasm of breast 02/07/2021 Cancer Staging:Clinical:Stage IA(cT1b, cN0(sn), cM0, G1, ER+, CT+, HER2-) - Signed by Gail Wyatt MD [...] Tamsulosin Assessment & Plan (12/08/2019 10:21 AM BYPRODUCTS SUPERVISOR): Desipramine Tamsulosin Assessment & Plan (05/24/2019 7:33 [...] discussed. Assessment & Plan (12/08/2019 10:20 AM BYPRODUCTS SUPERVISOR): Continue Emgality monthly Continue Botox Should not [...] depression Assessment & Plan (12/08/2019 10:36 AM BYPRODUCTS SUPERVISOR): Continue following with Dr. 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) 09/10/2011 Multiple sclerosis ([facility]) 12/07/2008 Assessment & Plan (09/21/2024 [...] did go to [facility] in the past, but left when she [...] that she completed MRI imaging at an [facility] in September 2022 but I [...] discussed. 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 I told her she should not inject in those areas and that the medication maybe less effective is she is injecting in non-approved sites. Patient declines talk of oral medication options. Continue Copaxone 20mg daily per patient preference Continue exercise Discussed weight loss and nutrition. Will also provide her with Toya Valladares LEAD SEWAGE PLANT OPERATOR phone number Follow up with Dr. 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 ER pos 100% (strong), CT pos 100% (strong), Her-2 neg (0 on [...]
--- OUTSIDE RECORDS SUMMARY | 2025-03-24 14:20 | XMS_ITS | Encounter Summary ---
Author Organization [employer] Address [address] [place] [address] Care Team Providers Care Distribution System Operator Name Role Phone Rod Buckner PA-C Primary Care Provide r Encounter Details Date Type Department Care Team (Late st Contact Info) Description 10/30/2003 Outpatient Historical Division of Neurology [address] [address] Armida Mendez MD [address] [facility] [address] [place] [address] Social History Tobacco Use Types Packs/Day Years Used Date Smoking Tobacco: Never Assessed Comments Unknown Sex and Gender Information Value Date Recorded Sex Assigned at Not on file Legal Sex Female 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
--- OUTSIDE RECORDS SUMMARY | 2025-03-24 14:20 | XMS_ITS | Encounter Summary ---
Author Organization [employer] Address [address] [place] [address] Care Team Providers Care Hoe Worker Name Role Phone Rod Buckner PA-C Primary Care Provide r Encounter Details Date Type Department Care Team (Late st Contact Info) Description 12/01/2001 Outpatient [facility] Division of Neurology [address] [address] Armida Mendez MD [address] [facility] [address] [place] [address] Social History Tobacco Use Types Packs/Day Years Used Date Smoking Tobacco: Never Assessed Comments Unknown Sex and Gender Information Value Date Recorded Sex Assigned at Not on file Legal Sex Female 5:09 AM NOTE KEEPER Gender Identity Not on file Sexual Orientation Not on file documented as of this encounter Plan of Treatment Not on file documented as of this encounter Visit Diagnoses Not on filedocumented in this encounter Care Teams Hoe Worker Relationship Specialty Start Date End Date Rod Buckner PA-C PCP - General Physician Country Singer 10/05/20 documented as of this encounter
--- OUTSIDE RECORDS SUMMARY | 2025-03-24 14:20 | XMS_ITS | Encounter Summary ---
Author Organization [facility] Address 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
--- OUTSIDE RECORDS SUMMARY | 2025-03-24 14:20 | XMS_ITS | Encounter Summary ---
Author Organization [facility] Address [address] [place] [address] Care Team Providers Care Vegetable Handler Name Role Phone Rod Buckner PA-C Primary Care Provide r Encounter Details Date Type Department Care Team (Latest Contact Info) Description 05/05/2008 Outpatient Historical [facility] [address] [place] [address] Armida Mendez MD [address] [facility] [address] [place] [address] Multiple Sclerosis (CMS/HCC) (Primary Dx) Social History Tobacco Use Types Packs/Day Years Used Date Smoking Tobacco: Never Assessed Comments Unknown Sex and Gender Information Value Date Recorded Sex Assigned at Not on file Legal Sex Female 5:09 AM VEGETABLE HANDLER Gender Identity Not on file Sexual Orientation Not on file documented as of this encounter Plan of Treatment Not on file documented as of this encounter Visit Diagnoses Diagnosis Multiple sclerosis (CMS/HCC)- Primary Multiple sclerosis documented in this encounter Care Teams Vegetable Handler Relationship Specialty Start Date End Date Rod Buckner PA-C PCP - General Physician Naturopathic Oncology Provider 10/05/20 documented as of this encounter
--- OUTSIDE RECORDS SUMMARY | 2025-03-24 14:20 | XMS_ITS | Encounter Summary ---
Author Organization [employer] [facility] Address [address] [place] [address] Care Team Providers Care Air Hammer Stripper Name Role Phone Rod Buckner PA-C Primary Care Provide r Encounter Details Date Type Department Care Team (Late st Contact Info) Description 11/02/2008 Outpatient Historical [facility] DEPT González Roy MD [address] [place] [address] Embolism and Thrombosis of Unspecified Site (CMS/HCC) Social History Tobacco Use Types Packs/Day Years Used Date Smoking Tobacco: Never Assessed Comments Unknown Sex and Gender Information Value Date Recorded Sex Assigned at Not on file Legal Sex Female 5:09 AM PROCESS MECHANIC Gender Identity Not on file Sexual Orientation Not on file documented as of this encounter Plan of Treatment Not on file documented as of this encounter Procedures Procedure Name Priority Date/Time Associated Diagnosis Comments US LOW EXT MERLE DUPLEX COMP BILAT Routine 11/02/2008 4:52 PM PROCESS MECHANIC CTA CHEST W WO CONTRAST Timed Study 11/02/2008 9:53 AM PROCESS MECHANIC POC CREATININE Routine 11/02/2008 9:37 AM PROCESS MECHANIC documented in this encounter Results * US LOW EXT MERLE DUPLEX COMP BILAT (11/02/2008 4:52 PM PROCESS MECHANIC) Anatomical Region Laterality Modality Lower Extremity Other Narrative 11/02/2008 4:52 PM PROCESS MECHANIC [place] [address] [place] [address] [email or web address] Peripheral Venous Study Patient: Eugenia Pinzon Study ID: BLOOD FLOW STUDY Gender: F : 1960 Age: 48 years Race: 1 Room: Bed: Height: Study Date: November 02, 2008 Patient status: Outpatient Weight: Access. #: [id number] POC: Microcomputer Support Specialist: Carldexana Ordering: Brandon Attending MD: Brandon Johnitting [...] 16:49:47 Procedure Note Provider, Historical - 11/02/2008 [facility] [address] [place] [address] [email or web address] Peripheral Venous Study Patient: Eugenia Pinzon Study ID: BLOOD FLOW STUDY Gender: F : 1960 Age: 48 years Race: 1 Room: Bed: Height: Study Date: November 02, 2008 Patient status: Outpatient Weight: Access. #: [id number] POC: Microcomputer Support Specialist: Claudy Ordering: Brandon Attending MD: Brandon Admitting [...] CHEST W WO CONTRAST (11/02/2008 9:53 AM PROCESS MECHANIC) Anatomical Region Laterality Modality Chest Other 11/02/2008 9:53 AM PROCESS MECHANIC Narrative 11/02/2008 2:41 PM PROCESS MECHANIC [facility] [address] [place], [place] [address] Admit Date: 11/02/2008 DRAKE PINZONEVER Joyner Sex: F Admit Prov: GONZÁLEZ ROY Date: 1960 Primary Care Prov: NICKO GARCIA CMRN: [id number] Room: [facility] SSN: [address] [place] [address] IMAGING SERVICES Ordering Prov: N/A Accession Number: [id number] PULMONARY ANGIOGRAM WITHOUT AND WITH [...] Procedure Note Georgia Rowley MD - 11/02/2008 [facility] [address] [place], [place] [address] Admit Date: 11/02/2008 PINZON EUGENIA L Sex: F Admit Prov: GONZÁLEZ ROY Date: 1960 Primary Care Prov: NICKO GARCIA CMRN: [id number] Room: [facility] SSN: [id number] IMAGING SERVICES Ordering Prov: N/A Interpretation CT [...] Result * POC CREATININE (11/02/2008 9:37 AM PROCESS MECHANIC) CREATININE POC 0.8 0.6 - 1.3 mg/dL [facility] GFR, >60 >=60 mL/min/1.7 sq meter [facility] GFR >60 >=60 mL/min/1.7 sq meter [facility] Capillary blood specimen (specimen) 11/02/2008 9:37 AM PROCESS MECHANIC 11/02/2008 9:37 AM PROCESS MECHANIC us González Roy MD POINT OF CARE TESTING Edited INTERFACE SYSTEM Refer to clinic/hospital department [facility] CLIA# [id number] [address] [facility] [place] [address] documented in this encounter Visit Diagnoses Diagnosis Embolism and thrombosis of unspecified site (CMS/HCC) Embolism and thrombosis of unspecified site documented in this encounter Care Teams Air Hammer Stripper Relationship Specialty Start Date End Date Rod Buckner PA-C PCP - General Physician Segment Block Layer 10/05/20 documented as of this encounter
--- OUTSIDE RECORDS SUMMARY | 2025-03-24 14:20 | XMS_ITS | Encounter Summary ---
Author Organization [employer] Address [address] [place] [address] Care Team Providers Care Roller Hand Name Role Phone Rod Buckner PA-C Primary Care Provide r Encounter Details Date Type Department Care Team (Late st Contact Info) Description 04/08/2006 Outpatient Historical Division of Neurology [address] [address] Armida Mendez MD [address] [place] [address] Social History Tobacco Use Types Packs/Day Years Used Date Smoking Tobacco: Never Assessed Comments Unknown Sex and Gender Information Value Date Recorded Sex Assigned at Not on file Legal Sex Female 5:09 AM HEALTH ASSESSMENT AND TREATMENT TEACHER Gender Identity Not on file Sexual Orientation Not on file documented as of this encounter Plan of Treatment Not on file documented as of this encounter Visit Diagnoses Not on filedocumented in this encounter Care Teams Roller Hand Relationship Specialty Start Date End Date Rod Buckner PA-C PCP - General Physician Staff Cytotechnologist 10/05/20 documented as of this encounter
--- OUTSIDE RECORDS SUMMARY | 2025-03-24 14:20 | XMS_ITS | Clinical Summary ---
Author Organization [facility] Address [address] [place] [address] Care Team Providers Care Director Of Restaurant Operations Name Role Phone Zuly Miller MD Unavailable Ayan Orozco APRN-STREET FLUSHER DRIVER Primary Care Provider Source Comments [facility],non-owned Affiliates and Associated Physician Practices is amultiple site organization consisting of ambulatory clinics and hospital sitesin [place], [place], [place] and [place]. This disclosure is being madepursuant to the Care Everywhere program and may not contain all information available regarding this patient. Last updated 18.[facility] Allergies Active Allergy Reactions Criticality Noted Date Comments Amphetamine-Dextroampheta mine Palpitations Medium 01/28/2017 Adhesive Sensitivity Rash Medium 11/10/2011 Allergy Palpitations Medium 01/28/2017 Dermolin Nausea and/or Vomiting Low 02/04/2017 Allyl Isothiocyanate Nausea and/or Vomiting Low 02/04/2017 Lnhlqved-Otqixliey-Yjiyvq ine Rash Medium 01/28/2017 Armodafinil Unknown High 06/12/2015 Other reaction(s): Neuropathy Bacitracin Unknown Low 02/11/2019 [place] Oil Nausea and/or Vomiting,Unknown Medium 11/10/2011 Cefuroxime [...] fluticasone propionate (FLONASE) 50 MCG/ACT nasal spray [place] 1 (one) spray into each nostril 2 times daily Active Tiotropium Ponce-Olodate rol 2.5-2.5 MCG/ACT Inhale 1 puff by [...] by mouth once daily Active Probiotic Product (kooaba HEALTH PO)Indications: Dysphagia,Dysph agia, unspecified type,Adenomatou s [...] not taking.Reported on 07/27/2024 Cholecalciferol 1.25 MG (44498 UT) Take 50,000 Units by mouth Active tamsulosin (FLOMAX) 0.4 MG capsule 01/02/20 21 Active cetirizine (ZYRTEC) 10 MG tablet Take 1 (one) tablet by mouth once daily 04/10/20 21 Active Dexter-3 Fatty Acids (fish oil) 1000 MG capsule [...] (DCIS), cN0, cM0, G2, ER: Not Assessed, NJ: Not Assessed, HER2: Not Assessed) - Signed by Meghana Zapata MD on 09/29/2021 Pathologic stage from 09/29/2021:Stage 0(pTis (DCIS), cN0, cM0, G2, ER: Not Assessed, NJ: Not Assessed, HER2: Not Assessed) - Signed [...] from 07/18/2020:Stage IA(cT1b, cN0, cM0, G1, ER+, NJ+, HER2-) - Signed by Meghana Zapata MD on 09/29/2021 Pathologic stage from 07/18/2020:Stage IA(pT1b, pN0(sn), cM0, G1, ER+, NJ+, HER2- ) - Signed by Meghana Zapata MD on 09/29/2021 Overview (09/29/2021): Left, upper outer, 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 ER pos 100% (strong), NJ pos 100% (strong), Her-2 neg (0 on [...] pectoris 09/11/2011 Atherosclerotic heart diseas e of [place] coronary artery without angina pectoris 09/11/2011 Essential [...] - 03/21/2025 11:59 PM CDT Hospital Encounter [facility] Health Imaging Services - [place] [address] [place] [address] Unknown, Provider Discharge Disposition: Home or Self Care 03/20/2025 Orders Only [facility] - Hematology/Oncolog y [address] [place] [phone] Josey August, RN Hot flashes related to aromatase inhibitor therapy 03/08/2025 Travel 03/08/2025 Refill [facility] - GI [address] [facility] [place] [address] Jaylon Castro DO Refill Request 03/01/2025 7:13 AM CDT - 03/01/2025 11:59 PM CDT Hospital Encounter [facility] CAT SCAN [address] [place] [address] Brian Varela MD Discharge Disposition: Home or Self Care 03/01/2025 7:00 AM CDT - 03/01/2025 7:12 AM CDT Hospital Encounter [facility] CAT SCAN [address] [place] [address] Brian Varela MD Discharge Disposition: Home or Self Care 03/01/2025 Telephone [facility] - Urology [address] [place] [address] Brian Varela MD Results 02/28/2025 10:00 AM CDT Office Visit [facility] - Urology [address] [place] [address] Brian Varela MD Kidney stones (Primary Dx); Renal mass; Gross hematuria 02/28/2025 Orders Only [facility] - Urology [address] [facility] [place] [address] Violeta Gonzales LPN Renal mass ; Gross hematuria 02/28/2025 Travel 02/16/2025 Telephone [facility] - Hematology/Oncolog y [address] [place] [address] Zuly Miller MD Medication Prior Auth Request 02/16/2025 Telephone [facility] - Hematology/Oncolog y [address] [place] [phone] Zuly Miller MD Medication Prior Auth Request 02/16/2025 Telephone [facility] - Hematology/Oncolog y [address] [place] [address] Zuly Miller MD Medication Prior Auth Request 02/16/2025 Orders Only [facility] - Hematology/Oncolog y [address] [place] [address] Lizet Contreras APRN-CNP 02/15/2025 10:20 AM CDT Office Visit [facility] - Hematology/Oncolog y [address] [place] [address] Lizet Contreras, HUMAN RESOURCES TRAINEE-STREET FLUSHER DRIVER Osteoporosis, unspecified osteoporosis type, unspecified pathological fracture presence (Primary Dx); Hot flashes related to aromatase inhibitor therapy 02/15/2025 9:40 AM CDT - 02/15/2025 11:59 PM CDT Hospital Encounter [facility] [address] [place] [address] Wilmer Zhang MD Discharge Disposition: Home or Self Care 02/07/2025 Orders Only [facility]ARM[facility] [address] [place] [phone] Misha Nice, PharmD 01/12/2025 Telephone [facility] - GI [address] [place] [phone] Rebel Perez MD Results 01/11/2025 Telephone [facility] - GI [address] [place] [phone] Janeth Foreman MD MEDICATION REFILL 01/10/2025 Telephone [facility] - Nephrology [address] [place] [phone] Shawnee Schwarz RN Question 01/04/2025 10:30 AM JACQUARD LOOM CARPET WEAVER - 01/04/2025 11:15 AM JACQUARD LOOM CARPET WEAVER Surgery [facility] ENDOSCOPY [address] [place] [phone] Janeth Foreman MD EGD w/ maya--miralax prep--arrive 90min early 01/04/2025 9:55 AM JACQUARD LOOM CARPET WEAVER Anesthesia Event [facility] ENDOSCOPY [facility] [place] [phone] Neel Lopez MD Heath, Kayla D, CAA 01/04/2025 8:44 AM JACQUARD LOOM CARPET WEAVER - 01/04/2025 12:02 PM JACQUARD LOOM CARPET WEAVER Hospital Encounter [facility] OP [address] [place] [phone] Janeth Foreman MD Surgery General Discharge Disposition: Home or Self Care 01/04/2025 Travel 12/30/2024 Patient Outreach [facility] ENDOSCOPY [address] [place] [phone] Yuni Orozco RN from Last 3 Months Immunizations Immunization Administration Dates Next Due Covid [employer] primary monoval ent 12+ yr 0.3mL Purple cap 09/20/2021,02/26/2021,01/29/2021 FLU VACCINE TRI IIV3 SPLIT P F IM (FLUVIRIN) 11/07/2013 HEP B VACCINE, ADULT 3 DOSE 03/12/1998, 8 INFLUENZA A P7L7-20 VACCINE 08/30/2013 INFLUENZA VACCINE 09/20/2021,10/13/2014 INFLUENZA VACCINE, [...] on file Legal Sex Female 12:42 PM JACQUARD LOOM CARPET WEAVER Gender Identity Not on file Sexual Orientation [...] Description 04/12/2025 9:30 AM CDT Office Visit [facility] - Urology [address] [facility] [place] [phone] Ni Thapa M, [address] [facility] 2L [place] [phone] 05/17/2025 10:00 AM CDT Appointment [facility] DIAGNOSTIC RAD OP [address] [place] [phone] Lizet Contreras, HUMAN RESOURCES TRAINEE-STREET FLUSHER DRIVER [address] [place] [address] 05/31/2025 9:00 AM CDT Office Visit [facility] - GI [address] [facility] [place] [phone] Isai Leon MD [address] [place] [phone] 08/16/2025 10:00 AM CDT Appointment [facility] [address] [place] [address] [place] [address] [place] [phone] 08/16/2025 10:40 AM CDT Office Visit [facility] - Hematology/Oncology [address] [place] [phone] Zuly Miller MD [address] [facility] [address] [place] [address] 08/21/2025 11:30 AM CDT Office Visit [facility] - General Surgery [address] [facility] [place] [address] Bebe Faulkner MD [address] [facility] [address] [place] [address] Health Maintenance Due Date Last [...] Author Safety General On track( 2:13 PM JACQUARD LOOM CARPET WEAVER) Ml Serra, KIERA Note: Expected end date: Ongoing Interventions: Your nurse will assess your risk for falls/injury each visit Use appropriate and safe transfer methods Medication Management General On track( 2:13 PM JACQUARD LOOM CARPET WEAVER) Ml Serra, KIERA Note: Expected end date: Ongoing Interventions: Take all medications as prescribed Let your doctor know right away about any changes in your medications Medical Devices Implanted Type Area Contract Serviceman Device Identifier Shelf Expiration Date Model / Serial / Lot Mrkr [employer]ur[employer] Brstbio Celero Sys Implanted:Qty: 1 on 06/12/2020 by Maddie Dixon MD at [facility] 10/05/2020 [id number] / / [id number] Description:titanium biopsy marker Procedures Procedure Name Priority Date/Time Associated Diagnosis Comments MRI KIDNEYS WWO CONTRAST Routine 03/21/2025 8:46 AM CDT Renal mass CT PELVIS W CONTRAST Routine 03/01/2025 7:50 AM CDT Renal mass Gross hematuria CT KIDNEYS WWO CONTRAST [place] 03/01/2025 7:50 AM CDT Renal mass Gross hematuria NJ MSR PVR U&/BLADD CAPCTY US NON Routine [...] ENDOSCOPY, COLON, SCREENING Routine 01/04/2025 10:16 AM JACQUARD LOOM CARPET WEAVER PATHOLOGY TISSUE Routine 01/04/2025 10:14 AM JACQUARD LOOM CARPET WEAVER 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 Thanks Received Date Received Time Jul 07, 2024 9:06 AM EGD Routine 01/04/2025 9:12 AM JACQUARD LOOM CARPET WEAVER MAMMO BILAT DIAGNOSTIC Routine 06/07/2020 9:10 AM [...] report was drafted by Fatuma Teresa MD (residential insurance inspector) 03/01/2025 7:58 AM. Shira Carranza MD have personally reviewed and interpreted this examination/study. > Interpreting Provider: Shira Hayward MD on 03/01/2025 10:50 AM Narrative 03/01/2025 10:50 AM CDT PROCEDURE: CT KIDNEYS WWO CONTRAST, CT PELVIS W CONTRAST, DATE/TIME OF EXAM: 03/01/2025 7:50 AM, LOCATION [facility] INDICATION: N28.89: Renal mass R31.0: Gross hematuria [...] DATE/TIME OF EXAM: 03/01/2025 7:50 AM, LOCATION [facility] INDICATION: N28.89: Renal mass R31.0: Gross hematuria [...] report was drafted by Fatuma Teresa MD (residential insurance inspector) 03/01/2025 7:58 AM. Shira Carranza MD have [...] report was drafted by Fatuma Teresa MD (residential insurance inspector) 03/01/2025 7:58 AM. Shira Carranza MD have personally reviewed and interpreted this examination/study. > Interpreting Provider: Shira Hayward MD on 03/01/2025 10:50 AM Narrative 03/01/2025 10:50 AM CDT PROCEDURE: CT KIDNEYS WWO CONTRAST, CT PELVIS W CONTRAST, DATE/TIME OF EXAM: 03/01/2025 7:50 AM, LOCATION [facility] INDICATION: N28.89: Renal mass R31.0: Gross hematuria [...] DATE/TIME OF EXAM: 03/01/2025 7:50 AM, LOCATION [facility] INDICATION: N28.89: Renal mass R31.0: Gross hematuria [...] report was drafted by Fatuma Teresa MD (residential insurance inspector) 03/01/2025 7:58 AM. IShira MD have personally reviewed and interpreted this examination/study. > Interpreting Provider: Shira Hayward MD on 03/01/2025 10:50 AM us Brian Varela MD CT ORDERABLES Final Result * [place] MSR PVR U&/BLADD CAPCTY US NON (02/28/2025 [...] neg [facility] [address] Specific [place] UA 1.[address] [facility] [address] Blood [...] [facility] [address] [place] [address], [facility] [phone] * VITAMIN D 25-HYDROXY (02/15/2025 10:25 AM CDT) Pathologist [facility] Vitamin D, 25 Hydroxy 52.3 30.0 - 80.0 ng/mL 02/15/2025 11:21 AM [facility] Comment: The recommendations for 25-Hydroxy Vitamin [...] LAB - CHEMISTRY ORDERABLES Marcia nathan Result [facility] [address] [place] [phone], [facility] [phone] * (ABNORMAL) CBC WITH DIFFERENTIAL (02/15/2025 10:25 AM CDT) [facility] WBC 10.5 4.0 - 10.7 x10E9/L 02/15/2025 10:38 AM [facility] RBC Count 4.64 3.90 - 5.20 x10E12/L 02/15/2025 10:38 AM [facility] Hemoglobin 13.6 11.9 - 15.8 g/dL 02/15/2025 10:38 AM [facility] Hematocrit 41.8 34.8 - 46.1 % 02/15/2025 10:38 AM [facility] MCV 90.1 80.0 - 98.0 fL 02/15/2025 10:38 AM [facility] MCH 29.3 26.7 - 33.6 pg 02/15/2025 10:38 AM [facility] MCHC 32.5 31.7 - 36.3 g/dL 02/15/2025 10:38 AM [facility] RDW-CV 15.7(H) 11.3 - 14.8 % 02/15/2025 10:38 AM [facility] Platelet Count 217 150 - 420 x10E9/L 02/15/2025 10:38 AM [facility] MPV 11.7(H) 7.8 - 11.4 fL 02/15/2025 10:38 AM [facility] Preliminary Absolute Neutrophil 6.83 1.60 - 7.50 x10E9/L 02/15/2025 10:38 AM [facility] Neutrophil % 65.2 41.0 - 74.0 % 02/15/2025 10:38 AM [facility] Lymphocyte % 22.1 17.0 - 47.0 % 02/15/2025 10:38 AM [facility] Monocyte % 7.9 3.0 - 11.0 % 02/15/2025 10:38 AM [facility] Eosinophil % 3.0 0.0 - 7.0 % 02/15/2025 10:38 AM [facility] Basophil % 0.6 0.0 - 1.6 % 02/15/2025 10:38 AM [facility] Immature Granulocytes % 1.2(H) 0.0 - 1.0 % 02/15/2025 10:38 AM [facility] Neutrophil Absolute 6.83 1.60 - 7.50 x10E9/L 02/15/2025 10:38 AM [facility] Lymphocyte Absolute 2.31 1.00 - 4.40 x10E9/L 02/15/2025 10:38 AM [facility] Monocyte Absolute 0.83 0.15 - 1.00 x10E9/L 02/15/2025 10:38 AM [facility] Eosinophil Absolute 0.31 0.00 - 0.60 x10E9/L 02/15/2025 10:38 AM [facility] Basophil Absolute 0.06 0.00 - 0.13 x10E9/L 02/15/2025 10:38 AM [facility] Blood BLOOD SPECIMEN / Unknown Venipuncture / Unknown 02/15/2025 10:25 AM CDT 02/15/2025 10:34 AM CDT us Zuly Miller MD LAB - HEMATOLOGY ORDERABLES Fin al Result [facility] [address] [place] [address], [facility] [phone] * (ABNORMAL) COMPREHENSIVE METABOLIC PANEL (02/15/2025 10:25 AM CDT) BUN 11 7 - 26 mg/dL 02/15/2025 11:03 AM [facility] Creatinine 0.73 0.56 - 0.96 mg/dL 02/15/2025 11:03 AM [facility] Sodium 139 136 - 145 mmol/L 02/15/2025 11:03 AM [facility] Potassium 5.1(H) 3.5 - 4.5 mmol/L 02/15/2025 11:03 AM [facility] Chloride 110(H) 98 - 107 mmol/L 02/15/2025 11:03 AM [facility] CO2 22 22 - 29 mmol/L 02/15/2025 11:03 AM [facility] Glucose 97 70 - 99 mg/dL 02/15/2025 11:03 AM [facility] Calcium 9.5 8.4 - 10.2 mg/dL 02/15/2025 11:03 AM [facility] Protein Total 6.7 6.0 - 8.3 g/dL 02/15/2025 11:03 AM [facility] Albumin 3.3(L) 3.4 - 5.0 g/dL 02/15/2025 11:03 AM [facility] Bilirubin Total 0.4 0.2 - 1.2 mg/dL 02/15/2025 11:03 AM [facility] Alkaline Phosphatase 108 40 - 150 U/L 02/15/2025 11:03 AM [facility] ALT 30 5 - 55 U/L 02/15/2025 11:03 AM [facility] AST 20 5 - 34 U/L 02/15/2025 11:03 AM T [facility] Anion Gap 7 6 - 16 02/15/2025 11:03 AM [facility] BUN/Creatinine Ratio 15 7 - 23 02/15/2025 11:03 AM [facility] Osmolality Calculated 287 275 - 295 mOsm/kg 02/15/2025 11:03 AM [facility] Albumin/Globulin Ratio 1.0(L) 1.1 - 2.3 02/15/2025 11:03 AM [facility] eGFR by CKD-EPI >90 >=90 mL/min/1.7 3 m2 02/15/2025 11:03 AM [facility] Blood BLOOD SPECIMEN / Unknown Venipuncture / Unknown 02/15/2025 10:25 AM CDT 02/15/2025 10:34 AM CDT us Zuly Miller MD LAB - CHEMISTRY ORDERABLES Marcia nathan Result [facility] [address] [place] [phone], [facility] [phone] * ENDOSCOPY, COLON, SCREENING (01/04/2025 10:16 AM JACQUARD LOOM CARPET WEAVER) Report Endoscopy POC Endoscopy Department Report _ [...] bowel preparation was evaluated using the BBPS ([place] Bowel Preparation Scale) with scores of: Right [...] non-young portions. Procedure Code(s): --- Professional --- 05237, Colonoscopy, flexible; with biopsy, single or multiple Diagnosis Code(s): --- Professional --- Z86.010, Personal history of colonic polyps K57.30, Diverticulosis of large intestine without perforation or abscess without bleeding CPT copyright 2021 [employer]. All rights reserved. The codes documented in this report are preliminary and upon it desktop support technician review may be revised to meet current compliance requirements. Janeth Foreman MD ([place]) 01/04/2025 10:58:05 AM Note Initiated On: 01/04/2025 10:16 AM Number of Addenda: [address] PROVATION 01/04/2025 10:1 6 AM JACQUARD LOOM CARPET WEAVER us Janeth Foreman MD GI PROCEDURE ORDERABLES E dited Result - Final [facility] PR[facility]ATION * PATHOLOGY TISSUE (01/04/2025 10:14 AM JACQUARD LOOM CARPET WEAVER) Case Report Surgical Pathology Report Case: [id number] Authorizing Provider: Janeth Foreman MD Collected: 01/04/2025 10:14 AM Ordering Location: [facility] ENDOSCOPY Received: 01/04/2025 12:42 PM Pathologist: Toya Canales MD Specimens: A) - Polyp Gastric, gastric polyps B) - Colon, random colon bx 01/05/2025 12:[address] [facility] PATHOLOGY LAB Final Diagnosis Stomach, gastric polyps, biopsy (A): - Fundic gland polyps - No dysplasia Large intestine, random colon, biopsy (B): - No histopathologic abnormality - No lymphocytic or collagenous colitis 01/05/2025 12:[address] [facility] PATHOLOGY LAB Microscopic Description and Comment Microscopic examination substantiates the final diagnosis. 01/05/2025 12:[address] [facility] PATHOLOGY LAB Clinical History The patient is a 64-year-old woman with dysphagia who presents for follow-up of gastric polyps and high risk colon cancer surveillance; history of CHEK2 mutation and prior gastric adenomatous polyps. Operative procedure/findings: EGD - few gastric polyps, resected and retrieved. Colonoscopy - normal colon, biopsy to rule out microscopic colitis. 01/05/2025 12:[address] [facility] PATHOLOGY LAB Gross Description The [...] toto in cassette B1. 01/05/2025 12:[address] [facility] PATHOLOGY LAB Pathologist Location at [facility] 01/05/2025 12:[address] [facility] PATHOLOGY LAB Disclaimer The performance characteristics of all immunohistochemical and indirect immunofluorescence stains (if any) cited in this report were determined by the Histopathology Laboratory of [facility]. Some of these tests were developed [...] the attending (teaching) pathologist. 01/05/2025 12:43 PM JACQUARD LOOM CARPET WEAVER [facility] PATHOLOGY LAB Embedded Images 01/05/2025 12:[address] 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 Procedure Code(s): --- Professional --- 86218, Esophagogastroduode noscopy, flexible, transoral; with transendoscopic balloon dilation of esophagus (less than 30 mm diameter) Diagnosis Code(s): --- Professional --- K31.7, Polyp of stomach and duodenum K31.89, Other diseases of stomach and duodenum R13.10, Dysphagia, unspecified CPT copyright 2021 [employer]. All rights reserved. The codes documented in this report are preliminary and upon it desktop support technician review may be revised to meet current compliance requirements. Janeth Foreman MD ([place]) 01/04/2025 10:24:09 AM Note Initiated On: 01/04/2025 9:12 AM Number of Addenda: [address] PROVATION 01/04/2025 9:12 AM JACQUARD LOOM CARPET WEAVER Janeth Foreman MD GI PROCEDURE ORDERABLES E dited Result - Final [facility]ATION * (ABNORMAL) MAMMO BILAT DIAGNOSTIC (06/07/2020 [...] COMPARISON: Multiple prior mammograms, most recently 2019 [facility] HISTORY: 59-year-old female with CHEK 2 [...] increased slightly in size when compared to [facility] imaging ultrasound 08/01/2016. There is no axillary adenopathy. us Jennifer Roy MD MAMMO ORDERABLES Final Res ult from Last 3 Months or Most Recently Relevant to Health Maintenance Insurance [facility] MANAGED MEDICARE ADV Advance Directives * Full Code (Latest Code Status on File) Date Activated Date Inactivated Comments 09/09/2018 6:14 PM 09/10/2018 6:28 PM Care Teams Director Of Restaurant Operations Relationship Specialty Start Date End Date Aayn Orozco, GERI-STREET FLUSHER DRIVER [address] [place] [address] PCP - General Nurse Practitioner 02/22/25 Zuly Miller MD [address] [address] Hematology and Oncology 02/17/24
--- OUTSIDE RECORDS SUMMARY | 2025-03-24 14:20 | XMS_ITS | Encounter Summary ---
Author Organization [facility] Address [address] [place] [address] Care Team Providers Care Ag Equipment Field Service Technician Name Role Phone Rod Buckner PA-C Primary Care Provide r Encounter Details Date Type Department Care Team (Late st Contact Info) Description 02/19/2005 Outpatient Historical Division of Neurology [address] [address] Armida Mendez MD [address] [facility] [address] [place] [address] Social History Tobacco Use Types Packs/Day Years Used Date Smoking Tobacco: Never Assessed Comments Unknown Sex and Gender Information Value Date Recorded Sex Assigned at Not on file Legal Sex Female 5:09 AM MEDICAL ANTHROPOLOGIST Gender Identity Not on file Sexual Orientation Not on file documented as of this encounter Plan of Treatment Not on file documented as of this encounter Visit Diagnoses Not on filedocumented in this encounter Care Teams Ag Equipment Field Service Technician Relationship Specialty Start Date End Date Rod Buckner PA-C PCP - General Physician Rn Testing 10/05/20 documented as of this encounter
--- OUTSIDE RECORDS SUMMARY | 2025-03-24 14:20 | XMS_ITS | Encounter Summary ---
Author Organization [employer] Address [address] [place] [address] Care Team Providers Care Edge Banding Machine Offbearer Name Role Phone Rod Buckner PA-C Primary Care Provide r Encounter Details Date Type Department Care Team (Late st Contact Info) Description 04/21/2000 Outpatient Historical Division of Neurology [address] [place] [address] Armida Mendez MD [address] [facility] [address] [place] [phone] Social History Tobacco Use Types Packs/Day Years Used Date Smoking Tobacco: Never Assessed Comments Unknown Sex and Gender Information Value Date Recorded Sex Assigned at Not on file Legal Sex Female 5:09 AM HEAD OF BUSINESS DEVELOPMENT Gender Identity Not on file Sexual Orientation Not on file documented as of this encounter Plan of Treatment Not on file documented as of this encounter Visit Diagnoses Not on filedocumented in this encounter Care Teams Edge Banding Machine Offbearer Relationship Specialty Start Date End Date Rod Buckner PA-C PCP - General Physician Professor Of Biostatistics 10/05/20 documented as of this encounter
--- OUTSIDE RECORDS SUMMARY | 2025-03-24 14:20 | XMS_ITS | Encounter Summary ---
Author Organization [employer] Address [address] [place] [address] Care Team Providers Care Technician Plant And Maintenance Name Role Phone Rod Buckner PA-C Primary Care Provide r Encounter Details Date Type Department Care Team (Latest Contact Info) Description 03/29/2000 Outpatient Historical [facility] NEURO PSYCHOLOGY Beni Beard V., PhD [address] [place] [address] Multiple sclerosis (CMS/HCC) (Primary Dx) Social History Tobacco Use Types Packs/Day Years Used Date Smoking Tobacco: Never Assessed Comments Unknown Sex and Gender Information Value Date Recorded Sex Assigned at Not on file Legal Sex Female 5:09 AM DRY KILN OPERATOR Gender Identity Not on file Sexual Orientation Not on file documented as of this encounter Plan of Treatment Not on file documented as of this encounter Visit Diagnoses Diagnosis Multiple sclerosis (CMS/HCC)- Primary Multiple sclerosis documented in this encounter Care Teams Technician Plant And Maintenance Relationship Specialty Start Date End Date Rod Buckner PA-C PCP - General Physician Assistant Strength Coach 10/05/20 documented as of this encounter
--- OUTSIDE RECORDS SUMMARY | 2025-03-24 14:20 | XMS_ITS | Encounter Summary ---
Author Organization [facility] Address [address] [place] [address] Care Team Providers Care Advertising Internship Name Role Phone Rod Buckner PA-C Primary Care Provide r Encounter Details Date Type Department Care Team (Late st Contact Info) Description 08/19/2004 Outpatient Historical HIS MRI DEPT Armida Mendez MD [address] [facility] [address] [place] [phone] MULTIPLE SCLEROSIS (CMS/HCC) (Primary Dx) Social History Tobacco Use Types Packs/Day Years Used Date Smoking Tobacco: Never Assessed Comments Unknown Sex and Gender Information Value Date Recorded Sex Assigned at Not on file Legal Sex Female 5:09 AM ROLL FILLER Gender Identity Not on file Sexual Orientation Not on file documented as of this encounter Plan of Treatment Not on file documented as of this encounter Visit Diagnoses Diagnosis Multiple sclerosis (CMS/HCC)- Primary Multiple sclerosis documented in this encounter Care Teams Advertising Internship Relationship Specialty Start Date End Date Rod Buckner PA-C PCP - General Physician Hardwood Flooring Specialist 10/05/20 documented as of this encounter
--- OUTSIDE RECORDS SUMMARY | 2025-03-24 14:20 | XMS_ITS | Referral Summary ---
Author Organization [address] Address [address] [place] [address] Care Team Providers Care Emulsion Operator Name Role Phone Gail Wyatt MD Unavailable [phone] Lobito Gonzalez DO Primary Care Provider [phone] Encounters Date Type Department Care Team Description 03/13/2025 Telephone [facility] [address] [facility] [address] [place] [phone] aJneth Escoto RN 03/09/2025 10:00 AM CDT Office Visit [facility] [address] [facility] [address] [place] [phone] Antony Brennan MD Multiple sclerosis (CMS/HCC) [...] Camphor-Methyl Salicylate-Soap Nausea And Vomiting Low 02/04/2017 Rodney Oil Nausea And Vomiting Medium 01/28/2017 Cefuroxime [...] Neomycin Unknown Medium 06/12/2015 Other reaction(s): Unknown Ejviejjp-Bmnmxnbkb-Dnmikk ine Rash Medium 01/28/2017 Nitrate Analogues Unknown [...] bronchitis, unspecified chronic bronchit is type 04/01/2024 joint terminal attack controller (current) use of aromatase inhibitors 08/15/2022 Acquired [...] Tamsulosin Assessment & Plan (12/08/2019 10:21 AM WINK CUTTER OPERATOR): Desipramine Tamsulosin Assessment & Plan (05/24/2019 7:33 [...] discussed. Assessment & Plan (12/08/2019 10:20 AM WINK CUTTER OPERATOR): Continue Emgality monthly Continue Botox Should not [...] depression Assessment & Plan (12/08/2019 10:36 AM WINK CUTTER OPERATOR): Continue following with Dr. 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 Assessment & Plan (12/08/2019 10:31 AM WINK CUTTER OPERATOR): Discussed the option of oral medication due [...] on file Legal Sex Female 7:38 PM WINK CUTTER OPERATOR Gender Identity Female 06/29/2020 2:02 PM CDT Sexual Orientation Not on file Last Filed Vital Signs Vital Sign Reading Time Taken Comments Blood Pressure 112/70 03/09/2025 10:16 AM CDT Pulse 88 03/09/2025 10:16 AM CDT Temperature 36.7 C (98 F) 03/09/2025 10:16 AM CDT Respiratory Rate 20 12/08/2024 11:1 4 AM WINK CUTTER OPERATOR Oxygen Saturation 96% 03/09/2025 10: 16 AM [...] breast in female, estrogen receptor positive (HCC) joint terminal attack controller (current) use of aromatase inhibitors HEPATITIS PANEL, ACUTE Routine 12/22/2018 1:58 PM WINK CUTTER OPERATOR from Last 3 Months or Most Recently Relevant to Health Maintenance Results * Dexa Axial Skeleton Bone Density 1 or 2 Site (05/25/2023 10:54 AM CDT) Anatomical Region Laterality Modality Body N/A Radiographic Ynes ging Narrative 05/27/2023 3:40 PM CDT Patient Name: Eugenia Pinzon Date of : 1960 Date of scan: 05/25/2023 Bone mineral density was performed on a [employer] Discovery Densitometer. Based on machine cross-calibration [...] by the International Society of Clinical Densitometry. [id number] Gail Wyatt MD IM DXA PROCEDURES F inal Result * Hepatitis panel, acute (12/22/2018 1:58 PM WINK CUTTER OPERATOR) Hep A IgM NON-REACTIVE NON-REAC TIVE [facility] [place] Comment [facility] [place] Comment: WE RECEIVED YOUR HANDWRITTEN TEST ORDER AND PERFORMED AN ACUTE HEPATITIS PANEL. IF THIS IS NOT WHAT YOU INTENDED TO ORDER, PLEASE CONTACT YOUR LOCAL OUTREACH NURSE IMMEDIATELY SO THAT WE CAN ADJUST OUR [...] INTENDED TO ORDER, PLEASE CONTACT YOUR LOCAL OUTREACH NURSE IMMEDIATELY SO THAT WE CAN ADJUST OUR BILLING APPROPRIATELY. YOU MAY ALSO INQUIRE ABOUT ALTERNATIVE OR ADDITIONAL TESTING. Hep B core IgM NON-REACTIVE NON-REAC TIVE [facility] [place] [facility] [place] Comment: WE RECEIVED YOUR HANDWRITTEN TEST ORDER AND PERFORMED AN ACUTE HEPATITIS PANEL. IF THIS IS NOT WHAT YOU INTENDED TO ORDER, PLEASE CONTACT YOUR LOCAL OUTREACH NURSE IMMEDIATELY SO THAT WE CAN ADJUST OUR [...] INTENDED TO ORDER, PLEASE CONTACT YOUR LOCAL OUTREACH NURSE IMMEDIATELY SO THAT WE CAN ADJUST OUR BILLING APPROPRIATELY. YOU MAY ALSO INQUIRE ABOUT ALTERNATIVE OR ADDITIONAL TESTING. 12/22/2018 1:58 PM WINK CUTTER OPERATOR 12/22/2018 2:01 PM WINK CUTTER OPERATOR Narrative Resulting Agency Comment Performing Organization Information: Site ID: [id number] Name: [employer] Address: [address] [place] [address] Director: Amandeep Sáurez D.O., MPH Antony Brennan MD LAB MICROBIOLOGY - GENERAL OR DERABLES Final Result Performing Organization Address City/State/[facility] Co de Phone Number [facility] [facility] [place] [facility] [place] from Last 3 Months or Most Recently Relevant to Health Maintenance Insurance [facility] MEDICARE ADVANTAGE [facility] MEDIC[facility] Address: [address] [address] [place] [address] MEDICARE ADVANTAGE [facility] MEDICARE Address: [address] [address] [place] [address] Care Teams Emulsion Operator Relationship Specialty Start Date End Date Lobito Gonzalez DO [address] [facility] [address] [place] [address] PCP - General Internal Medicine 03/09/25 Gail Wyatt MD [address] [place] [address] Medical Oncologist/Line Locator Medical Oncology 07/23/22
--- OUTSIDE RECORDS SUMMARY | 2025-03-24 14:20 | XMS_ITS | Encounter Summary ---
Author Organization [facility] Address [address] [place] [address] Care Team Providers Care Stevedore Dock Name Role Phone Rod Buckner PA-C Primary Care Provide r Encounter Details Date Type Department Care Team (Latest Contact Info) Description 08/13/2008 Outpatient Historical [facility] NE[facility] PSYCHOLOGY Stella Rutherford, PhD Dept. of Neuropsychology [address] [place] [address] Multiple Sclerosis (CMS/HCC) Social History Tobacco Use Types Packs/Day Years Used Date Smoking Tobacco: Never Assessed Comments Unknown Sex and Gender Information Value Date Recorded Sex Assigned at Not on file Legal Sex Female 5:09 AM BRIM CUTTER Gender Identity Not on file Sexual Orientation Not on file documented as of this encounter Plan of Treatment Not on file documented as of this encounter Visit Diagnoses Diagnosis Multiple sclerosis (CMS/HCC) Multiple sclerosis documented in this encounter Care Teams Stevedore Dock Relationship Specialty Start Date End Date Rod Buckner PA-C PCP - General Physician Concrete Swimming Pool Installer 10/05/20 documented as of this encounter
--- OUTSIDE RECORDS SUMMARY | 2025-03-24 14:20 | XMS_ITS | Encounter Summary ---
Author Organization [employer] Address [address] [place] [address] Care Team Providers Care Back Tender Pulp Drier Name Role Phone Rod Buckner PA-C Primary Care Provide r Encounter Details Date Type Department Care Team (Late st Contact Info) Description 05/03/2002 Outpatient Historical Division of Neurology [address] [address] Armida Mendez MD [address] [facility] [address] [place] [address] Social History Tobacco Use Types Packs/Day Years Used Date Smoking Tobacco: Never Assessed Comments Unknown Sex and Gender Information Value Date Recorded Sex Assigned at Not on file Legal Sex Female 5:09 AM DISTILLATION OPERATOR HELPER Gender Identity Not on file Sexual Orientation Not on file documented as of this encounter Plan of Treatment Not on file documented as of this encounter Visit Diagnoses Not on filedocumented in this encounter Care Teams Back Tender Pulp Drier Relationship Specialty Start Date End Date Rod Buckner PA-C PCP - General Physician Explosives Engineer 10/05/20 documented as of this encounter
--- OUTSIDE RECORDS SUMMARY | 2025-03-24 14:20 | XMS_ITS | Encounter Summary ---
Author Organization [employer] Address [address] [place] [address] Care Team Providers Care Medical Supervisor Name Role Phone Rod Buckner PA-C [...] on file Legal Sex Female 5:09 AM JIG GRINDER Gender Identity Not on file Sexual Orientation Not on file documented as of this encounter Plan of Treatment Not on file documented as of this encounter Visit Diagnoses Diagnosis Other musculoskeletal symptoms referable to limbs(729.89)- Primary Other musculoskeletal symptoms referable to limbs documented in this encounter Care Teams Medical Supervisor Relationship Specialty Start Date End Date Rod Buckner PA-C PCP - General Physician Concrete Fence Builder 10/05/20 documented as of this encounter
--- OUTSIDE RECORDS SUMMARY | 2025-03-24 14:20 | XMS_ITS | Encounter Summary ---
Author Organization [employer] Address [address] [place] [address] Care Team Providers Care Municipal Services Manager Name Role Phone Rod Buckner PA-C Primary Care Provide r Encounter Details Date Type Department Care Team (Late st Contact Info) Description 01/10/2003 Outpatient Historical Division of Neurology [address] [address] Armida Mendez MD [address] [facility] [address] [place] [address] Social History Tobacco Use Types Packs/Day Years Used Date Smoking Tobacco: Never Assessed Comments Unknown Sex and Gender Information Value Date Recorded Sex Assigned at Not on file Legal Sex Female 5:09 AM VICTIM ADVOCATE Gender Identity Not on file Sexual Orientation Not on file documented as of this encounter Plan of Treatment Not on file documented as of this encounter Visit Diagnoses Not on filedocumented in this encounter Care Teams Municipal Services Manager Relationship Specialty Start Date End Date Rod Buckner PA-C PCP - General Physician General Labor 10/05/20 documented as of this encounter
--- OUTSIDE RECORDS SUMMARY | 2025-03-24 14:20 | XMS_ITS | Encounter Summary ---
Author Organization [email or web address] Address [address] [place] [address] Care Team Providers Care Group Leader Name Role Phone Rod Buckner PA-C Primary Care Provide r Encounter Details Date Type Department Care Team (Late st Contact Info) Description 09/27/2007 Outpatient Historical [facility] [address] [facility] [address] [address] Armida Mendez MD [address] [address] [place] [phone] Social History Tobacco Use Types Packs/Day Years Used Date Smoking Tobacco: Never Assessed Comments Unknown Sex and Gender Information Value Date Recorded Sex Assigned at Not on file Legal Sex Female 5:09 AM OCULAR CARE TECHNICIAN Gender Identity Not on file Sexual Orientation Not on file documented as of this encounter Plan of Treatment Not on file documented as of this encounter Visit Diagnoses Not on filedocumented in this encounter Care Teams Group Leader Relationship Specialty Start Date End Date Rod Buckner PA-C PCP - General Physician Quality Control Lead 10/05/20 documented as of this encounter
--- OUTSIDE RECORDS SUMMARY | 2025-03-24 14:20 | XMS_ITS | Encounter Summary ---
Author Organization [facility] Address [address] [place] [address] Care Team Providers Care Channel Marketing Specialist Name Role Phone Rod Buckner PA-C Primary Care Provide r Encounter Details Date Type Department Care Team (Latest Contact Info) Description 07/12/2008 Outpatient Historical [facility] NE[facility] PSYCHOLOGY Stella Rutherford, PhD Dept. of Neuropsychology [address] [place] [address] Multiple Sclerosis (CMS/HCC) Social History Tobacco Use Types Packs/Day Years Used Date Smoking Tobacco: Never Assessed Comments Unknown Sex and Gender Information Value Date Recorded Sex Assigned at Not on file Legal Sex Female 5:09 AM TEXTILE SUPERVISOR Gender Identity Not on file Sexual Orientation Not on file documented as of this encounter Plan of Treatment Not on file documented as of this encounter Visit Diagnoses Diagnosis Multiple sclerosis (CMS/HCC) Multiple sclerosis documented in this encounter Care Teams Channel Marketing Specialist Relationship Specialty Start Date End Date Rod Buckner PA-C PCP - General Physician Tar Boiler 10/05/20 documented as of this encounter
--- OUTSIDE RECORDS SUMMARY | 2025-03-24 14:20 | XMS_ITS | Encounter Summary ---
Author Organization [facility] Address [address] [place] [address] Care Team Providers Care Charcoal Unloader Name Role Phone Rod Buckner PA-C Primary Care Provide r Encounter Details Date Type Department Care Team (Late st Contact Info) Description 05/24/2002 Outpatient Historical HIS MRI DEPT Armida Mendez MD [address] [facility] [address] [place] [phone] MULTIPLE SCLEROSIS (CMS/HCC) (Primary Dx) Social History Tobacco Use Types Packs/Day Years Used Date Smoking Tobacco: Never Assessed Comments Unknown Sex and Gender Information Value Date Recorded Sex Assigned at Not on file Legal Sex Female 5:09 AM WORKERS' COMPENSATION CLAIMS SUPERVISOR Gender Identity Not on file Sexual Orientation Not on file documented as of this encounter Plan of Treatment Not on file documented as of this encounter Visit Diagnoses Diagnosis Multiple sclerosis (CMS/HCC)- Primary Multiple sclerosis documented in this encounter Care Teams Charcoal Unloader Relationship Specialty Start Date End Date Rod Buckner PA-C PCP - General Physician Dispatcher Service 10/05/20 documented as of this encounter
--- OUTSIDE RECORDS SUMMARY | 2025-03-24 14:20 | XMS_ITS | Encounter Summary ---
Author Organization [employer] Address [address] [place] [address] Care Team Providers Care Aoc Director Intelligence Officer Name Role Phone Rod Buckner PA-C Primary Care Provide r Encounter Details Date Type Department Care Team (Late st Contact Info) Description 02/08/2004 Outpatient Historical Division of Neurology [address] [address] Armida Mendez MD [address] [facility] [address] [place] [address] Social History Tobacco Use Types Packs/Day Years Used Date Smoking Tobacco: Never Assessed Comments Unknown Sex and Gender Information Value Date Recorded Sex Assigned at Not on file Legal Sex Female 5:09 AM MYCOLOGY TEACHER Gender Identity Not on file Sexual Orientation Not on file documented as of this encounter Plan of Treatment Not on file documented as of this encounter Visit Diagnoses Not on filedocumented in this encounter Care Teams Aoc Director Intelligence Officer Relationship Specialty Start Date End Date Rod Buckner PA-C PCP - General Physician Retail Department Supervisor 10/05/20 documented as of this encounter
--- OUTSIDE RECORDS SUMMARY | 2025-03-24 14:20 | XMS_ITS | Encounter Summary ---
Author Organization [facility] Address [address] [place] [address] Care Team Providers Care Application Internship Name Role Phone Rod Buckner PA-C Primary Care Provide r Encounter Details Date Type Department Care Team (Late st Contact Info) Description 01/11/2009 Outpatient Historical HIS MRI DEPT Armida Hubbard MD [address] [facility] [address] [place] [address] Social History Tobacco Use Types Packs/Day Years Used Date Smoking Tobacco: Never Assessed Comments Unknown Sex and Gender Information Value Date Recorded Sex Assigned at Not on file Legal Sex Female 5:09 AM BUSINESS SYSTEMS ADMINISTRATOR Gender Identity Not on file Sexual Orientation Not on file documented as of this encounter Plan of Treatment Not on file documented as of this encounter Procedures Procedure Name Priority Date/Time Associated Diagnosis Comments MRI BRAIN W WO CONTRAST Timed Study 01/11/2009 8:44 AM BUSINESS SYSTEMS ADMINISTRATOR POC CREATININE Routine 01/11/2009 8:01 AM BUSINESS SYSTEMS ADMINISTRATOR XR SKULL LESS THAN 4 VW Timed Study 01/11/2009 7:42 AM BUSINESS SYSTEMS ADMINISTRATOR documented in this encounter Results * MRI BRAIN W WO CONTRAST (01/11/2009 8:44 AM BUSINESS SYSTEMS ADMINISTRATOR) Anatomical Region Laterality Modality Head Other 01/11/2009 8:44 AM BUSINESS SYSTEMS ADMINISTRATOR Narrative 01/11/2009 4:40 PM BUSINESS SYSTEMS ADMINISTRATOR [address] [address] [place], [place] [address] Admit Date: 01/11/2009 EUGENIA PINZON Sex: F Admit Prov: ARMIDA HUBBARD Date: 1960 Primary Care Prov: NICKO GARCIA CMRN: [id number] [id number] IM[facility]ING SERVICES Ordering Prov: N/A Accession Number: [id number] Interpretation MRI BRAIN WITHOUT AND WITH IV [...] SMM Procedure Note Claude Gonzalez - 01/11/2009 [address] [place] [address] [place], [place] [address] Admit Date: 01/11/2009 EUGENIA PINZON Sex: F Admit Prov: ARMIDA HUBBARD Date: 1960 Primary Care Prov: NICKO GARCIA CMRN: [id number] [facility] [id number] IMAGING SERVICES Ordering Prov: N/A Interpretation MRI [...] CLAUDE GONZALEZ 01/11/2009 16:38 Transcribed: 01/11/2009 14:19 [facility] Armida Hubbard MD MR ORDERABLES Final Result * (ABNORMAL) POC CREATININE (01/11/2009 8:01 AM BUSINESS SYSTEMS ADMINISTRATOR) CREATININE POC 1.0 0.6 - 1.3 mg/dL [facility] Comment: The calculation for the estimated GFR on the i-STAT POC instrument has been changed to correspond to the IDMS-traceable MDRD Study, upon the recommendation of the pocket machine operator of the i-STAT instrument. The change was effective in our laboratory 11/06/2008. The impact of this change to the estimated GFR is minimal. This calculation is used by the main laboratory methodology also. GFR, >60 >=60 mL/min/1.7 sq meter [facility] GFR 59(L) >=60 mL/min/1.7 sq meter [facility] Capillary blood specimen (specimen) 01/11/2009 8:01 AM BUSINESS SYSTEMS ADMINISTRATOR 01/11/2009 8:01 AM BUSINESS SYSTEMS ADMINISTRATOR us Armida Hubbard MD POINT OF CARE TESTING Edited INTERFACE SYSTEM Refer to clinic/hospital department [facility] CLIA# [id number] [address] [place] [address] * XR SKULL < 4 VW (01/11/2009 7:42 AM BUSINESS SYSTEMS ADMINISTRATOR) Anatomical Region Laterality Modality Head Other 01/11/2009 7:42 AM BUSINESS SYSTEMS ADMINISTRATOR Narrative 01/11/2009 3:14 PM BUSINESS SYSTEMS ADMINISTRATOR [facility] [address] [place], [place] [address] Admit Date: 01/11/2009 EUGENIA PINZON Sex: F Admit Prov: ARMIDA HUBBARD Date: 1960 Primary Care Prov: NICKO GARCIA CMRN: [id number] [facility] [id number] IMAGING SERVICES Ordering Prov: N/A Accession Number: [id number] Interpretation SKULL 2 VIEWS FOR INTRAOCULAR METAL [...] Procedure Note Andreea Hook MD - 01/11/2009 [address] [place], [place] [address] Admit Date: 01/11/2009 EUGENIA PINZON Sex: F Admit Prov: ARMIDA HUBBARD Date: 1960 Primary Care Prov: NICKO GARCIA CMRN: [id number] [facility] [id number] IMAGING SERVICES Ordering Prov: N/A Interpretation SKULL [...] on filedocumented in this encounter Care Teams Application Internship Relationship Specialty Start Date End Date Rdo Buckner PA-C PCP - General Physician Ruffling Hemmer Automatic 10/05/20 documented as of this encounter
--- OUTSIDE RECORDS SUMMARY | 2025-03-24 14:20 | XMS_ITS | Encounter Summary ---
Author Organization [facility] Address [address] [address] Care Team Providers Care Social Services Aide Name Role Phone Lottie Chin Unavailable Unavailable Rod Buckner PA-C Primary Care Provide r Zuly Miller MD Unavailable [phone] Ayan Orozco APRN-SWEEP MOLDER Primary Care Provider Reason for Visit * Reason Onset Date Comments Med Question 12/13/2018 Encounter Details Date Type Department Care Team (Late st Contact Info) Description 12/13/2018 Telephone [facility] General Internal Medicine [address] [address] Martha Clark MD [address] OF [facility] INTERNAL [place] [phone] Med Question Social History Tobacco Use Types Packs/Day Years Used Date Smoking Tobacco: Former Cigarettes 4 20 0 11/30/1970 - 11/30/1990 Smokeless Tobacco: Never Alcohol Use Standard Drinks/Week Comments No 0 (1 standard drink = 0.6 oz pur e alcohol) Comments No Sex and Gender Information Value Date Recorded Sex Assigned at Not on file Legal Sex Female 12:42 PM FUR PULLER Gender Identity Not on file Sexual Orientation [...] least a month d/t using [employer] PULLER documented in this encounter Plan of Treatment Upcoming Encounters Date Type Department Care Team (Late st Contact Info) Description 04/12/2025 9:30 AM CDT Office Visit [facility] Urology [address] [place] [address], [place] [address] Ni Thapa, DO [address] OF UROLOGIC [place] [address] 05/17/2025 10:[address] [facility] DIAGNOSTIC RAD OP 1201 [place] [address] Lizet Contreras, INSPECTOR REPAIRER SANDSTONE-SWEEP MOLDER [address] [place] [place] [address] 05/31/2025 9:00 AM CDT Office Visit [facility] - GI 1225 [facility], [place] [address] Isai Leon MD 1225 [place] [address] 08/16/2025 10:[address] [facility] 365[address] [place] [address] [place] [address] [facility] [address] [place] [address] 08/16/2025 10:40 AM CDT Office Visit [facility] - Hematology/Oncology 365[address] [place] [address] Zuly Miller MD 3665 [facility] 3 [place] [address] 08/21/2025 11:30 AM CDT Office Visit [facility] - General Surgery [address] [place] [address] Bebe Faulkner MD [address] [facility] [address] [place] [address] documented as of this encounter Goals Goal Patient Goal Type Associated Problems Recent Progress Patient-Stated? Author Safety General On track( 024 2:13 PM FUR PULLER) Ml Serra, KIERA Note: Expected end date: Ongoing Interventions: Your nurse will assess your risk for falls/injury each visit Use appropriate and safe transfer methods Medication Management General On track( 024 2:13 PM FUR PULLER) Ml Serra, RN Note: Expected end date: Ongoing Interventions: Take all medications as prescribed Let your doctor know right away about any changes in your medications documented as of this encounter Visit Diagnoses Not on filedocumented in this encounter Care Teams Social Services Aide Relationship Specialty Start Date End Date Rod Buckner PA-C 68[address] [facility] [address] [place] [address] PCP - General 02/18/19 02/21/25 Ayan Orozco APRN-SWEEP MOLDER [address] [place] [address] PCP - General Nurse Practitioner 02/22/25 Lottie Chin Distribution Dispatcher Psychiatry 09/08/18 03/22/19 Zuly Miller MD 3665 [facility] 3 [place] [address] Hematology and Oncology 02/17/24 documented as of this encounter
--- OUTSIDE RECORDS SUMMARY | 2025-03-24 14:20 | XMS_ITS | Encounter Summary ---
Author Organization [facility] Address [address] [place] [address] Care Team Providers Care Salesperson Automobiles Name Role Phone Rod Buckner PA-C Primary [...] on file Legal Sex Female 5:09 AM DATA WAREHOUSE CONSULTANT Gender Identity Not on file Sexual Orientation Not on file documented as of this encounter Plan of Treatment Not on file documented as of this encounter Visit Diagnoses Diagnosis Other dyspnea and respiratory abnormality- Primary documented in this encounter Care Teams Salesperson Automobiles Relationship Specialty Start Date End Date Rod Buckner PA-C PCP - General Physician Used Car [employer] 10/05/20 documented as of this encounter
--- OUTSIDE RECORDS SUMMARY | 2025-03-24 14:20 | XMS_ITS | Encounter Summary ---
Author Organization [facility] Address [address] [place] [address] Care Team Providers Care Fulling Mill Operator Name Role Phone Rod Buckner PA-C Primary Care Provide r Zuly Miller MD Unavailable [phone] Ayan Orozco DAY HABILITATION SUPERVISOR-PERFORMANCE ARCHITECT Primary Care Provider Encounter Details Date Type Department Care Team (Late st Contact Info) Description 05/22/2022 Patient Outreach [facility] ENDOSCOPY 1201 [place] [phone] Shanice Hernandez, RN Social History Tobacco Use [...] on file Legal Sex Female 12:42 PM COSMETICS SUPERVISOR Gender Identity Not on file Sexual [...] Office Visit [facility] - Urology [address] [place] [address], [place] [address] Ni Thapa, [address] [place] [address] 05/17/2025 10:00 AM CDT Appointment [facility] DIAGNOSTIC RAD OP 1201 [place] [address] Lizet Contreras, DAY HABILITATION SUPERVISOR-PERFORMANCE ARCHITECT [address] [place] [address] 05/31/2025 9:00 AM CDT Office Visit [facility]ician Group - GI 1225 [facility], [place] [address] Isai Leon MD 1225 [place] [address] 08/16/2025 10:00 AM CDT Appointment [facility] 3655 [place] [address] [place] [address] [facility] [address] [place] [address] 08/16/2025 10:40 AM CDT Office Visit [facility] - Hematology/Oncology [address] [place] [address] Zuly Miller MD 3665 [facility] 3 [place] [address] 08/21/2025 11:30 AM CDT Office Visit [facility] - General Surgery [address] [place] [address] Bebe Faulkner MD [address] [facility] [address] [place] [address] documented as of this encounter Goals Goal Patient Goal Type Associated Problems Recent Progress Patient-Stated? Author Safety General On track( 024 2:13 PM COSMETICS SUPERVISOR) Ml Serra, RN Note: Expected end date: Ongoing Interventions: Your nurse will assess your risk for falls/injury each visit Use appropriate and safe transfer methods Medication Management General On track( 024 2:13 PM COSMETICS SUPERVISOR) Ml Serra, RN Note: Expected end date: Ongoing Interventions: Take all medications as prescribed Let your doctor know right away about any changes in your medications documented as of this encounter Visit Diagnoses Not on filedocumented in this encounter Care Teams Fulling Mill Operator Relationship Specialty Start Date End Date Rod Buckner PA-C [address] [place] [address] PCP - General 02/18/19 02/21/25 Ayan Orozco APRN-PERFORMANCE ARCHITECT [address] [place] [address] PCP - General Nurse Practitioner 02/22/25 Zuly Miller MD 2266 [facility] 3 [place] [address] Hematology and Oncology 02/17/24 documented as of this encounter
--- OUTSIDE RECORDS SUMMARY | 2025-03-24 14:20 | XMS_ITS | Encounter Summary ---
Author Organization [facility] Address [address] [place] [address] Care Team Providers Care Childhood Development Teacher Name Role Phone Rod Buckner PA-C Primary Care Provide r Zuly Miller MD Unavailable [phone] Ayan Orozco COMPUTER TECHNOLOGY INSTRUCTOR-NUTRITION COORDINATOR Primary Care Provider Encounter Details Date Type Department Care Team (Late st Contact Info) Description 01/15/2023 Lab Requisition [facility] Care DermPath Lab [address] [facility], [facility] [place] [address] Dario Pérez MD [facility]6 [place] [address] Social History Tobacco Use Types [...] Visit [facility]rology [address] [facility], [place] [address] Ni Thapa DO 1225 [facility] 2L [place] [address] 05/17/2025 10:00 AM CDT Appointment [facility] DIAGNOSTIC RAD OP 1201 [place] [address] Lizet Contreras, COMPUTER TECHNOLOGY INSTRUCTOR-NUTRITION COORDINATOR [address] [place] [address] 05/31/2025 9:00 AM CDT Office Visit [facility]ician Group - GI 1225 [facility], [place] [address] Isai Leon MD 1225 [place] [address] 08/16/2025 10:00 AM CDT Appointment [facility] 365[address] [place], [place] [phone] [place] [address] [facility] [address] [place] [address] 08/16/2025 10:40 AM CDT Office Visit [facility] - Hematology/Oncology 365[address] [place] [address] Zuly Miller MD 3665 [facility] 3 [place], [place] [address] 08/21/2025 11:30 AM CDT Office Visit [facility] - General Surgery [address] [place] [address] Bebe Faulkner MD [address] [facility] [address] [place] [address] documented as of this encounter Goals Goal Patient Goal Type Associated Problems Recent Progress Patient-Stated? Author Safety General On track( 024 2:13 PM ACCOUNTS RECEIVABLE ASSISTANT) Ml Serra, RN Note: Expected end date: Ongoing Interventions: Your nurse will assess your risk for falls/injury each visit Use appropriate and safe transfer methods Medication Management General On track( 024 2:13 PM ACCOUNTS RECEIVABLE ASSISTANT) Ml Serra, KIERA Note: Expected end date: Ongoing Interventions: Take all medications as prescribed Let your doctor know right away about any changes in your medications documented as of this encounter Procedures Procedure Name Priority Date/Time Associated Diagnosis Comments DERMATOPATHOLOGY Routine 01/15/2023 12:0 0 AM ACCOUNTS RECEIVABLE ASSISTANT documented in this encounter Results * DERMATOPATHOLOGY (01/15/2023 12:00 AM ACCOUNTS RECEIVABLE ASSISTANT) Case Report Dermatopathology Report Case: [id number] Authorizing Provider: Dario Pérez MD Collected: 01/15/2023 12:00 AM Ordering Location: [facility] DermPath Lab Received: 01/15/2023 04:51 PM Pathologist: Goldie Choudhary MD Specimen: Skin, left thumb 3 11:02 AM [facility] DERMATOPATHOLOGY LABORATORY Final Diagnosis Specimen A. SKIN, left thumb: [place] (B07.8) 3 11:02 AM [facility] DERMATOPATHOLOGY LABORATORY Clinical History Patch/plaque eczema, contact, Reena, [facility], [place] 3 11:02 AM [facility] DERMATOPATHOLOGY LABORATORY Gross Description Specimen A: Received is one formalin filled container labeled with the patient's name and designated left thumb. The specimen consists of a shave biopsy measuring 8x4x1 mm. Jar 0. 3 11:02 AM [facility] DERMATOPATHOLOGY LABORATORY Microscopic Description Specimen A. SKIN, left thumb: There is gently papillated epidermal hyperplasia, hypergranulosis, and laminated hyperorthokeratosis . 3 11:02 AM [facility] DERMATOPATHOLOGY LABORATORY Disclaimer An external and internal positive and negative controls are appropriate for the histochemical, immunohistochemical and immunofluorescence stain(s) in this case (if any), except where stated explicitly. The performance characteristics of the stain(s) cited in this report were developed and its performance characteristic determined by the Dermatopathology Laboratory at [facility], directed by Dr. Ced Salazar. These tests need not be, and therefore are not, approved by the [place] Food and Drug Administration. The tests are used for clinical purposes. Billing Codes Specimen Charges Stain Charges 49330 1 3 11:02 AM [facility] DERMATOPATHOLOGY LABORATORY Embedded Images 3 11:02 AM [facility] DERMATOPATHOLOGY LABORATORY Pathology/Cytolog y TISSUE SPECIMEN FROM SKIN / Unknown 01/15/2023 01/15/2023 4:51 PM ACCOUNTS RECEIVABLE ASSISTANT Dario Pérez MD LAB - PATHOLOGY/CYTOLOGY ORDERAB LES Final Result DERMATOPATHOLOGY LABORATORY [facility] - Department of Dermatology [facility] Medicine [address] [place] [address], [address] Floor [address] [phone] documented in this encounter Visit Diagnoses Not on filedocumented in this encounter Care Teams Childhood Development Teacher Relationship Specialty Start Date End Date Rod Buckner PA-C [address] [place] [address] PCP - General 02/18/19 02/21/25 Ayan Orozco, GERI-NUTRITION COORDINATOR [address] [place] [address] PCP - General Nurse Practitioner 02/22/25 Zuly Miller MD 1572 [facility] 3 [place] [address] Hematology and Oncology 02/17/24 documented as of this encounter
--- OUTSIDE RECORDS SUMMARY | 2025-03-24 14:20 | XMS_ITS | Encounter Summary ---
Author Organization [employer] Address [address] [place] [address] Care Team Providers Care Ux Interaction Designer Name Role Phone Rod Buckner PA-C Primary Care Provide r Encounter Details Date Type Department Care Team (Late st Contact Info) Description 08/22/2005 Outpatient Historical Division of Neurology [address] [address] Armida Mendez MD [address] [facility] [address] [place] [address] Social History Tobacco Use Types Packs/Day Years Used Date Smoking Tobacco: Never Assessed Comments Unknown Sex and Gender Information Value Date Recorded Sex Assigned at Not on file Legal Sex Female 5:09 AM SENIOR NETWORK SECURITY ENGINEER Gender Identity Not on file Sexual Orientation Not on file documented as of this encounter Plan of Treatment Not on file documented as of this encounter Visit Diagnoses Not on filedocumented in this encounter Care Teams Ux Interaction Designer Relationship Specialty Start Date End Date Rod Buckner PA-C PCP - General Physician Imaging Tech 10/05/20 documented as of this encounter
--- OUTSIDE RECORDS SUMMARY | 2025-03-24 14:20 | XMS_ITS | Encounter Summary ---
Author Organization [facility] Address [address] [place] [address] Care Team Providers Care Marble Coper Name Role Phone Rod Buckner PA-C Primary Care Provide r Encounter Details Date Type Department Care Team (Late st Contact Info) Description 05/11/2007 Outpatient Historical Division of Neurology [address] [address] Armida Mendez MD [address] [facility] [address] [place] [address] Social History Tobacco Use Types Packs/Day Years Used Date Smoking Tobacco: Never Assessed Comments Unknown Sex and Gender Information Value Date Recorded Sex Assigned at Not on file Legal Sex Female 5:09 AM OBSTETRICS/GYNECOLOGY NURSE Gender Identity Not on file Sexual Orientation Not on file documented as of this encounter Plan of Treatment Not on file documented as of this encounter Visit Diagnoses Not on filedocumented in this encounter Care Teams Marble Coper Relationship Specialty Start Date End Date Rod Buckner PA-C PCP - General Physician News Copy Editor 10/05/20 documented as of this encounter
--- OUTSIDE RECORDS SUMMARY | 2025-03-24 14:21 | XMS_ITS | Encounter Summary ---
Author Organization [facility] Address [address] [place] [address] Care Team Providers Care Gum Machine Operator Name Role Phone Rod Buckner PA-C Primary Care Provide r Zuly Miller MD Unavailable [phone] Ayan Orozco PAYROLL PROFESSIONAL-ESCALATOR INSTALLER Primary Care Provider Encounter Details Date Type Department Care Team (Late st Contact Info) Description 06/25/2020 Telephone [facility] Plastic Surgery 3660 [place] [address] Nick Rojas MD [address] [place] [address] Social History Tobacco Use Types Packs/Day Years Used Date Smoking Tobacco: Former Cigarettes 4 20 0 11/30/1970 - 11/30/1990 Smokeless Tobacco: Never Alcohol Use Standard Drinks/Week Comments No 0 (1 standard drink = 0.6 oz pur e alcohol) Comments No Sex and Gender Information Value Date Recorded Sex Assigned at Not on file Legal Sex Female 12:42 PM HOT TOP LINER HELPER Gender Identity Not on file Sexual [...] 06/25/2020 11:37 AM CDT Per Eveline at [facility], cpt codes: 77675-04, 88855-31, 90659, 93527, and [address]604 do not require prior authorization. Patient is scheduled for this as a combo surgery with Dr. Rojas and Dr. Roy on 07/06/2020. Dr. Roy's office is going to reach out to the patient regarding her surgery instructions and COVID testing information. Viki Quiñones [phone] documented in this encounter Plan of Treatment Upcoming Encounters Date Type Department Care Team (Late st Contact Info) Description 04/12/2025 9:30 AM CDT Office Visit [facility] - Urology 12[address] [facility], [place] [address] Ni Thapa, [address] [place] [address] 2L [place] [address] 05/17/2025 10:00 AM CDT Appointment [facility] DIAGNOSTIC RAD OP 1201 [place] [address] Diane Lizet, PAYROLL PROFESSIONAL-ESCALATOR INSTALLER [address] [place] [address] 05/31/2025 9:00 AM CDT Office Visit [facility] Physician Group - GI 12[address] [facility], [place] [address] Isai Leon MD 1225 [place] [address] 08/16/2025 10:00 AM CDT Appointment [facility] INF[facility]ION CENTER 365[address] [place] [address] [place] [address] [facility] [address] [place] [address] 08/16/2025 10:40 AM CDT Office Visit [facility] Group - Hematology/Oncology 365[address] [place] [address] Zuly Miller MD 3665 [facility]3] 3 [place] [address] 08/21/2025 11:30 AM CDT Office Visit [facility] - General Surgery [address] [place] [address] Bebe Faulkner MD [address] [facility] [address] [place] [address] documented as of this encounter Goals Goal Patient Goal Type Associated Problems Recent Progress Patient-Stated? Author Safety General On track( 024 2:13 PM HOT TOP LINER HELPER) Ml Serra, RN Note: Expected end date: Ongoing Interventions: Your nurse will assess your risk for falls/injury each visit Use appropriate and safe transfer methods Medication Management General On track( 024 2:13 PM HOT TOP LINER HELPER) Ml Serra, RN Note: Expected end date: Ongoing Interventions: Take all medications as prescribed Let your doctor know right away about any changes in your medications documented as of this encounter Visit Diagnoses Not on filedocumented in this encounter Care Teams Gum Machine Operator Relationship Specialty Start Date End Date Rod Buckner PA-C [address] [place] [address] PCP - General 02/18/19 02/21/25 Ayan Orozco APRN-ESCALATOR INSTALLER [address] [place] [address] PCP - General Nurse Practitioner 02/22/25 Zuly Miller MD [address] [address] Hematology and Oncology 02/17/24 documented as of this encounter
--- OUTSIDE RECORDS SUMMARY | 2025-03-24 14:21 | XMS_ITS | Continuity of Care Document ---
Author Organization [facility] Address [address] [place] [address] [address] [place] [address] Phone Care Team Providers Care Security Escort Name Role Phone [facility] [employer] Unavailable Unavail able Porfirio Piedra Unavailable Unavailable Advance Directives Directive Yes / No Effective Date File Name No Information Encounters Encounter Description Practice Location Reason(s) For Visit Diagnoses Date Provider Providers Copied on Encounter [facility], [address] [place] [address] [address], [place], [place], [id number], [place] tel:[phone] [facility] No Information [facility] [facility] [address] [facility], [address], [place], [place], [id number] , [place]. tel:[phone] Referring Provider: Lee New, [address] [place] [address] [address], [place], [address]. tel:[phone] sulting Provider: Porfirio Piedra, [address] [place] [address], [place], [address]. tel:[phone] Family History Family Member Type Diagnosis Age [...]
--- OUTSIDE RECORDS SUMMARY | 2025-03-24 14:21 | XMS_ITS ---
Author Organization [facility] Address [address] [place] [address] Care Team Providers Care Record Keeper Name Role Phone Zuly Miller MD Unavailable [phone] Ayan Orozco APRN-COMPONENT DESIGN ENGINEER Primary Care Provider Active Problems * This [...] (DCIS), cN0, cM0, G2, ER: Not Assessed, CA: Not Assessed, HER2: Not Assessed) - Signed by Meghana Zapata MD on 09/29/2021 Pathologic stage from 09/29/2021:Stage 0(pTis (DCIS), cN0, cM0, G2, ER: Not Assessed, CA: Not Assessed, HER2: Not Assessed) - Signed [...] from 07/18/2020:Stage IA(cT1b, cN0, cM0, G1, ER+, CA+, HER2-) - Signed by Meghana Zapata MD on 09/29/2021 Pathologic stage from 07/18/2020:Stage IA(pT1b, pN0(sn), cM0, G1, ER+, CA+, HER2- ) - Signed by Meghana Zapata MD on 09/29/2021 Overview (09/29/2021): Left, upper outer, 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 - Preliminary Celi score 1 (tub 1/nuc 1/zaynab 1). - ER positive, CA positive, HER-2 negative. Date of diagnosis: 06/22/20 Age of diagnosis: 60 Tumor Information Cancer Staging Ductal carcinoma in situ (DCIS) of right breast Staging form: Breast, AJCC 8th Edition - Clinical: No stage assigned - Unsigned - Pathologic stage from 07/18/2020: Stage 0 (pTis (DCIS), cN0, cM0, ER: Not Assessed, CA: Not Assessed, HER2: Not Assessed) - Signed by Jennifer Roy MD on 07/18/2020 Malignant neoplasm of upper-outer quadrant of left breast in female, estrogen receptor positive Staging form: Breast, AJCC 8th Edition - Clinical stage from 07/18/2020: Stage IA (cT1b, cN0, cM0, G1, ER+, CA+, HER2-) - Signed by Jennifer Roy MD on 07/18/2020 - Pathologic stage from 07/18/2020: Stage IA (pT1b, pN0(sn), cM0, G1, ER+, CA+, HER2-) - Signed by Jennifer Roy MD on 07/18/2020 Surgery Information Description: Bilateral TMs, left SLNB and bilateral immediate breast reconstruction with local tissue rearrangement an inferior dermal flaps Date: 07/06/20 Surgeon/Facility Name: Jennifer Roy MD and Nick Rojas MD / [facility] Adjuvant Treatment Recommendations: Medical Oncology referral Initial Imaging Mammogram: 06/22/20; [facility]; Irregular mass with distortion in [...] fertility -Pain that may be chronic or snf -Difficulty with speech or swallowing -Emotional effects of physical changes Cancer Surveillance Schedule You will be seen more frequently the earlier you are in your surveillance plan. Every patient will have an individualized follow up schedule based on recommendations from national cancer organizations and your specific post- treatment course. Follow up with Location How often Radiation Oncology [facility] Clinical visit every 4-6 months for 5 yrs, then every [address] Pruitt's recommendations [facility] You have had bilateral mastectomies Reasons to call: New lesions or mass Chest pain New feelings of sadness or being overwhelmed Unintended weight loss Cough that does not go away Any side effects or questions of care Your follow up schedule is listed below Future Appointments Date Time Provider Department Center 10/08/2020 12:30 PM Nona Alfonso PA-C [id number] AFF [facility] 02/21/2021 10:00 AM Arlin Pruitt MD [id number] [facility] S 03/01/2021 9:30 AM Janeth Titus MD [id number] [facility] Contact Information Medical Oncologist Arlin Pruitt MD Surgeon Jennifer Roy MD / Bebe Faulkner MD Social Work Dietitian Pastoral Care [facility] Hospital Scheduling Primary Care Provider Rod Buckner PA-C [phone] Recommended cancer screenings Colonoscopy: every 10 years [...] few extra steps. Important Resources [facility] [employer] cancer.org Association of Cancer Online Resources acor.org Caring Bridge caringbridge.[email or web address] CancerCare cancercare.org [facility] livestrong.org National Cancer [place] cancer.gov Cancer Survivors Network csn.cancer.org National Coalition for Cancer Survivorship canceradvocacy.org [place] Society of Clinical Oncologists cancer.net Cancer Support [facility] www.[email or web address] Radiation Therapy Questions/Answers www.rtanswers.org Resolved Problems Problem Noted Date Diagnosed Date Resolved Date History of esophagogastroduodenoscopy (EGD) 01/12/2025 01/12/2025 Functional diarrhea 01/11/2020 04/24/20 21
--- OUTSIDE RECORDS SUMMARY | 2025-03-24 14:21 | XMS_ITS | Clinical Summary ---
Author Organization [facility] Address [address] [place] [phone] Phone Care Team Providers Care Wheel Polisher Name Role Phone Rod Buckner PA-C Primary Care Provide r Allergies Active Allergy Reactions Criticality Noted Date Comments Adhesive Tape-Silicones Unknown 03/08/2012 Amphetamine Aspartate Unknown Low 06/12/2015 Bacitracin Unknown Low 02/11/2019 Other reaction(s): Unknown Other reaction(s): Unknown [place] Oil Unknown 03/08/2012 Cefuroxime Axetil Unknown 03/08/2012 [...] 06/12/2015 Other reaction(s): Unknown Other reaction(s): Unknown Xnaptvqt-Btgqekhop-Aizfj stepan Rash Medium 01/28/2017 Nitrate Analogues Unknown [...] lump Take 200 mcg by mouth daily early education teacher. Active terbutaline (BRETHINE) 5 mg Oral tabletIndications [...] Vega MD Referring Provider: Carissa Plummer MD [address] [place], [place] [address] [address] Other: Problem Noted Date Diagnosed Date Hormone [...] on file Legal Sex Female 5:09 AM MONOTYPE CASTER Gender Identity Not on file Sexual Orientation [...] ACCESS/TRUE BLUE P[employer] Care Teams Wheel Polisher Relationship Specialty Start Date End Date Rod Buckner PA-C PCP - General Physician Machine Stripper 10/05/20
[2025-03-24 15:32] LABS: Basophils Absolute Auto 0.1 K/mm3 (0.0-0.1); Basophils Percent Auto 0.7 % (0.2-1.2); Eosinophils Absolute Auto 0.3 K/mm3 (0-0.3); Eosinophils Percent Auto 3.2 % (0-4.4); Hematocrit 45.8 % (37.0-47.0); Hemoglobin 14.4 g/dL (12.0-15.0); Immature Granulocyte Absolute 0.05 K/mm3 (0.00-0.031); Immature Granulocyte Percent A 0.6 % (0-0.5); Lymphocytes Absolute Auto 1.97 K/mm3 (0.9-3.2); Lymphocytes Percent Auto 22.6 % (18.3-44.2); Mean Corpuscular HGB Conc 31.4 g/dl (32-36); Mean Corpuscular Volume 95.4 fl (80-100); Mean Platelet Volume 10.6 fl (7.4-10.4); Monocytes Absolute Auto 0.8 K/mm3 (0.1-0.6); Monocytes Percent Auto 8.8 % (2.6-8.5); Neutrophils Absolute Auto 5.6 K/mm3 (1.3-6.7); Neutrophils Percent Auto 64.1 % (45.5-73.1); Platelet Count Result 228 k/mm3 (150-375); Red Cell Distribution Width 15.8 % (11.5-14.5); White Blood Count 8.7 K/mm3 (4.5-10.0)
[2025-03-24 15:44] LABS: Alanine Aminotransferase 33 U/L (6-35); Albumin Level 4.3 g/dL (3.5-5.1); Alkaline Phosphatase 95 U/L (38-126); Anion Gap 7 mmol/L (4-12); Aspartate Amino Transferase 21 U/L (14-36); Bilirubin,Total 0.5 mg/dL (0.2-1.3); Blood Urea Nitrogen 11 mg/dL (7-17); Calcium 10.1 mg/dL (8.4-10.2); Carbon Dioxide 29 mmol/L (22-30); Chloride 105 mmol/L (98-107); Estimated CRCL calculation 66 ml/min; Estimated Glomerular Filt Rate > 60; Glucose 113 mg/dL (65-110); Potassium 4.8 mmol/L (3.4-5.0); Sodium 141 mmol/L (137-145)
[2025-03-24 15:45] LABS: INR 0.9; Prothrombin Time 12.8 Seconds (11.1-14.7)
[2025-03-24 15:46] LABS: Partial Thromboplastin Time 29.6 Seconds (22.3-36.8)
[2025-03-24 15:59] LABS: NT Pro B Type Natriuretic Pept 27 pg/mL (19.9-100); Troponin I < 0.012 ng/mL (0.000-0.034)
[2025-03-24 15:59] LABS: Add Urine Microscopic? YES; Appearance Urine Clear (Clear); Bacteria Urine None Seen /hpf; Bilirubin Urine Negative (Negative); Blood Urine Trace (Negative); Color Urine Yellow (Yellow); Glucose Urine UA Negative (Negative); Ketones Urine Negative (Negative); Leukocyte Esterase Ur 3+ LEU/UL (Negative); Nitrate Urine Negative (Negative); Non Pathogenic Casts 0-2; Protein Urine Negative (Negative); RBC Urine 0-2 /hpf (0-2); Specific Grav Ur 1.015 (1.001-1.035); Squamous Epithelial Cell Urine None Seen /hpf (Few); Urobilinogen Urine 0.2 mg/dL (<2.0); WBC Urine >100 /hpf (0-3)
--- NOTE | 2025-03-24 16:22 | ECG_ITS ---
Test Date: 2025-03-24 14:18:05 Measurements Intervals Erhard Rate: 76 P: 27 TX: 134 QRS: 69 QRSD: 101 T: 66 QT: 364 QTc: 410 Interpretive Statements SINUS RHYTHM EARLY PRECORDIAL R/S TRANSITION BORDERLINE ECG No previous ECG available for comparison Electronically Signed On 03-24-2025 18:59:20 CDT by Cole Freedman D.O.
--- NOTE | 2025-03-24 17:08 | ECG_ITS ---
Test Date: 2025-03-24 17:08:51 Measurements Intervals [place] Rate: 80 P: 36 OR: 144 QRS: 74 QRSD: 93 T: 67 QT: 357 QTc: 412 Interpretive Statements SINUS RHYTHM EARLY PRECORDIAL R/S TRANSITION BORDERLINE ECG Compared to ECG 03/24/2025 14:18:05 No significant changes Electronically Signed On 03-25-2025 08:16:04 CDT by Cole Freedman D.O.
--- NOTE | 2025-03-24 18:20 | ADMGEN ---
This patient, Eugenia Pinzon, was admitted to Medical Room 340-01. Patient/family oriented to hospital policies and general routines including ID bracelet, bed and alarms, visiting hours, pain management, procedures, bathroom and other care routines, personal items, smoking policy, room service/diet, and visiting hours. Information on how to activate the Rapid Response Team has been discussed. Patient/Family are encouraged to report perceived risks to care and to ask questions if they do not understand what they are told or what they should do.
--- NOTE | 2025-03-24 21:55 | P.HP_ITS ---
H&P: HPI History of Present Illness Date/Time: 03/24/25 21:55 Chief Complaint: Shortness of Breath Narrative: 64 y/o F with PMH of multiple sclerosis, hypothyroidism, anxiety, chronic bronchitis, HLD, asthma, hypertension, and FALGUNI (does not tolerate) presents here with shortness of breath. The patient presents here from home for further evaluation of shortness of breath on 03/24/2025. She reports this started around October of 2024. She reports this has been worked up extensively through her PCP. She describes the shortness of breath as occurring with exertion and now conversational. It is accompanied by intermittent sputum production and continues to cough (but has been less) and chest pain. She reports the chest pain has been intermittent for the last few weeks and has only been occurring when the shortness of breath is severe. Describes chest pain, pressure, midsternal, nonradiating, and intermittent. She denies nausea, vomiting, diarrhea, fever, or chills. She has a respiratory history significant for chronic bronchitis, asthma, former smoker (cessation 30 years ago). She follows with Brittaney GUERRA for her pulmonary care, next available appt was not until June. Of note, she reports she had ?surgery ?performed on her back yesterday at skin lesion excised and sent for pathology. Patient is additionally reporting 1 day of burning with urination. She denies abdominal pain. Initial VS at presentation: 97.3? F, HR 82, R 22, 123/67, and 100% on RA. ED workup showed: No leukocytosis, no anemia, normal coags, no significant electrolyte derangements, creatinine 0.84 and GFR >60, glucose 113, BNP 27, UA suggestive of UTI. Chest CTA showed no PE or other acute cardiopulmonary disease, mild emphysema with sub segmental air trapping related to associated small airway disease. EKG showed sinus rhythm, rate 76, early precordial R/S transition. Review of Systems Review of Systems: All systems reviewed & are unremarkable except as noted in HPI and below [facility] Past Medical History Medical History (Updated 03/24/25 @ 22:26 by Elisa Doss, ACIDIZER) Vitamin D deficiency Osteopenia Diabetes Kidney stones DVT (deep venous thrombosis) Myocardial infarction Migraine headache Osteoarthritis Invasive ductal carcinoma of breast S/p bilateral mastectomy Hyperlipidemia BMI 39.0-39.9,adult BMI 40.0-44.9, adult Hypokalemia Anxiety Chronic bronchitis with acute exacerbation Hypothyroidism Multiple sclerosis Hypokalemia Asthma Hypertension Surgical History Surgical History (Updated 03/24/25 @ 22:14 by Elisa Doss APRN) H/O bilateral mastectomy H/O arthroscopy of shoulder H/O nasal septoplasty History of hysterectomy H/O breast biopsy History of endoscopic sinus surgery H/O colonoscopy History of appendectomy Family History Family History Mother Family history of lung cancer Family history of malignant neoplasm of breast in first degree relative Father Family history of lung cancer Family history of migraine headaches Other Diabetes mellitus Family history of heart disease in male family member before age 55 Family history of kidney disease Social History Social History Smoking packs per day: 2 Smoking cigarettes per day: 40.0 Years smoked: 20 Smoking pack-years: 40.00 Smoking status: Former smoker Second hand tobacco smoke exposure: No Alcohol intake: former Substance use: never Substance use type: does not use Do You Feel Safe in your Home?: Yes Lack of Transportation: No Lack of Food: Never True Current Housing: I Have Housing Concerned About Future Housing: No Difficulty Paying Gas/Electric Bills: No Difficulty Paying for Meds: No Currently Unemployed: YES Education: Bachelor's Degree Difficulty w/ Childcare or Family Care: No Living arrangements: with family 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/Education: 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 Gender identity (if verbalized by the patient): Female Spiritual care concerns: No Meds Home Medications and Allergies Home Medications ?Medication ?Instructions ?Recorded ?Confirmed ?Type aspirin 81 mg tablet,delayed 81 mg PO DAILY 12/15/19 03/24/25 History release (Adult Low Dose Aspirin) biotin 5 mg capsule 5 mg PO DAILY 12/15/19 03/24/25 History galcanezumab-gnlm 120 mg/mL 120 mg subcut MONTHLY 12/15/19 03/24/25 History subcutaneous pen injector (Emgality Pen) glatiramer 20 mg/mL subcutaneous 20 mg subcut DAILY 12/15/19 03/24/25 History syringe (Copaxone) glucosamine-chondroitin 500 mg-400 1 cap PO TID 08/27/20 03/24/25 History mg capsule simethicone 125 mg chewable tablet 250 mg PO TID 08/27/20 03/24/25 History (Gas-X Extra Strength) calcium carbonate (Tums) 1,200 mg PO TID PRN Abdominal Pain 03/05/21 03/24/25 History cranberry fruit 400 mg capsule 4,000 mg PO TID 03/05/21 03/24/25 History baclofen 10 mg tablet 30 mg PO QID muscle spasm 08/07/21 03/24/25 History desipramine 10 mg tablet 15 mg PO QPM 08/07/21 03/24/25 History fluticasone propionate 50 1 spray intranasal Q12H 05/19/22 03/24/25 History mcg/actuation nasal spray,suspension (Flonase Allergy Relief) acetaminophen 500 mg tablet 500 mg PO Q6H PRN Pain 07/28/22 03/24/25 History (Tylenol Extra Strength) fluoride (sodium) 1.1 % dental gel 1 applic dental HS 07/28/22 03/24/25 History (PreviDent) omega 5-sbg-yhs-fish oil 1,000 mg 1 cap PO TID 08/19/22 03/24/25 History (120 mg-180 mg) capsule (Fish Oil) peak flow meter (Peak Air Peak #1 ea 09/16/22 03/24/25 Rx Flow Meter) tiotropium 2.5 mcg-olodaterol 2.5 1 puff inhalation BID 06/09/23 03/24/25 History mcg/actuation mist for inhalation (Stiolto Respimat) exemestane 25 mg tablet 25 mg PO DAILY 07/27/23 03/24/25 History cholecalciferol (vitamin D3) 25 25 mcg PO DAILY #100 caps 12/07/23 03/24/25 Rx mcg (1,000 unit) capsule (Vitamin D3) amantadine HCl 100 mg capsule See Rx Instructions .Route 08/30/24 03/24/25 Rx .COMPLEX #180 caps montelukast 10 mg tablet 10 mg PO DAILY #100 tabs 10/17/24 03/24/25 Rx (Singulair) pravastatin 40 mg tablet 40 mg PO DAILY #100 tabs 10/17/24 03/24/25 Rx donepezil 10 mg tablet 10 mg PO DAILY #90 tabs 11/08/24 03/24/25 Rx furosemide 40 mg tablet See Rx Instructions .Route 11/09/24 03/24/25 Rx .COMPLEX #180 tabs ergocalciferol (vitamin D2) 1,250 See Rx Instructions .Route 11/18/24 03/24/25 Rx mcg (50,000 unit) capsule (Vitamin .COMPLEX #13 caps D2) diltiazem HCl 120 mg 120 mg PO DAILY #100 caps 11/24/24 03/24/25 Rx capsule,extended release 24 hr tamsulosin 0.4 mg capsule See Rx Instructions .Route 12/09/24 03/24/25 Rx .COMPLEX #90 caps furosemide 20 mg tablet 20 mg PO BID #180 tabs 12/30/24 03/24/25 Rx potassium chloride 20 mEq/15 mL See Rx Instructions .Route 01/12/25 03/24/25 Rx oral liquid .COMPLEX #20,339 mL albuterol sulfate 90 mcg/actuation 2 puff inhalation QID PRN 02/05/25 03/24/25 Rx aerosol inhaler (Ventolin HFA) Shortness Of Breath #25.5 grams albuterol sulfate 90 mcg/actuation 2 inh inhalation .q12 02/10/25 03/24/25 History aerosol inhaler (Ventolin HFA) levothyroxine 175 mcg tablet 175 mcg PO DAILY 02/10/25 03/24/25 History (Levo-T) esomeprazole magnesium 40 mg 40 mg PO Q12H 03/24/25 03/24/25 History capsule,delayed release evening primrose oil-linoleic 1 cap PO DAILY 03/24/25 03/24/25 History acid-gamolenic acid 1,000 mg capsule ([place] Oil) famotidine 20 mg tablet (Acid 20 mg PO DAILY 03/24/25 03/24/25 History Controller) hyoscyamine sulfate 0.125 mg See Rx Instructions .Route .COMPLEX 03/24/25 03/24/25 History sublingual tablet simethicone 80 mg chewable tablet 80 mg PO TID 03/24/25 03/24/25 History (Gas Relief (simethicone)) sucralfate 100 mg/mL oral 20 ml PO DIRECTED 03/24/25 03/24/25 History suspension tiotropium 2.5 mcg-olodaterol 2.5 1 puff inhalation .q12hr 03/24/25 03/24/25 History mcg/actuation mist for inhalation (Stiolto Respimat) Allergies Allergy/AdvReac Type Severity Reaction Status Date / Time adhesive tape Allergy Mild Unknown Verified 03/24/25 18:44 amphetamine (From Adderall) Allergy Mild Other Verified 03/24/25 18:44 armodafinil (From Nuvigil) Allergy Mild Unknown Verified 03/24/25 18:44 aspartame (From Nutrasweet Allergy Mild Headache Verified 03/24/25 18:44 Aspartame) cefuroxime (From Ceftin) Allergy Mild Unknown Verified 03/24/25 18:44 dextroamphetamine (From Allergy Mild Other Verified 03/24/25 18:44 Adderall) gabapentin (From Neurontin) Allergy Mild Unknown Verified 03/24/25 18:44 latex Allergy Mild Unknown Verified 03/24/25 18:44 liver extract Allergy Mild Other Verified 02/24/25 07:38 meperidine (From Demerol) Allergy Mild Unknown Verified 03/24/25 18:44 metoclopramide (From Reglan) Allergy Mild Unknown Verified 03/24/25 18:44 metronidazole (From Flagyl) Allergy Mild Unknown Verified 03/24/25 18:44 pentazocine (From Talwin) Allergy Mild Unknown Verified 03/24/25 18:44 silver nitrate Allergy Mild Unknown Verified 03/24/25 18:44 adhesive Allergy Unknown Unknown Verified 03/24/25 18:44 castor oil Allergy Unknown Unknown Verified 03/24/25 18:44 coconut Allergy Unknown Other Verified 03/24/25 18:44 ergot alkaloids Allergy Unknown Unknown Verified 03/24/25 18:44 erythromycin base Allergy Unknown Unknown Verified 03/24/25 18:44 mustard Allergy Unknown Other Verified 03/24/25 18:44 neomycin Allergy Unknown Unknown Verified 03/24/25 18:44 nitrofurantoin Allergy Unknown Unknown Verified 03/24/25 18:44 nystatin Allergy Unknown Unknown Verified 03/24/25 18:44 oxcarbazepine Allergy Unknown Hives / Verified 03/24/25 18:44 Red Face Penicillins Allergy Unknown Unknown Verified 03/24/25 18:44 polymyxin B Allergy Unknown polymycin Verified 03/24/25 18:44 eye drops spinach Allergy Unknown Other Verified 03/24/25 18:44 bacitracin Allergy Unknown Verified 03/24/25 18:44 nalbuphine (From Nubain) Allergy Unknown Verified 03/24/25 18:44 Vital Signs Vital Signs - 24 hr 03/24/25 14:06 03/24/25 15:15 03/24/25 15:15 Temperature 97.3 F L Pulse Rate 82 73 Respiratory Rate 22 H 14 Blood Pressure 123/67 Pulse Oximetry 100 99 100 Oxygen Delivery Room Air Room Air 03/24/25 15:31 03/24/25 16:36 03/24/25 16:47 Temperature Pulse Rate 71 85 82 Respiratory Rate 14 18 22 H Blood Pressure 135/71 157/99 H 149/77 H Pulse Oximetry 100 100 Oxygen Delivery 03/24/25 17:02 03/24/25 17:17 03/24/25 20:00 Temperature Pulse Rate 81 76 96 Respiratory Rate 22 H 20 Blood Pressure 145/67 H 155/69 H Pulse Oximetry 100 96 Oxygen Delivery 03/24/25 21:46 Temperature 97.5 F L Pulse Rate 79 Respiratory Rate 18 Blood Pressure 144/80 H Pulse Oximetry 97 Oxygen Delivery Exam Const: General: comfortable and no acute distress Other: , female, obese body habitus, nontoxic appearance HENMT: Face/Nose/Sinus: Normal nares present Mouth: Yes moist mucous memb ranes Eyes: General: appearance normal, both eyes and all related structures Sclera: sclerae normal Pupils: Equal, round and reactive pupils present EOM: EOMs intact bilaterally Resp: Other: Intermittent expiratory wheeze, primarily in the upper lungs bilaterally. No crackles. + conversational dyspnea and moderate tachypnea post-coughing episode. Cardio: Rate: regular rate Rhythm: regular rhythm Other: S1-S2 present without murmur, rub, ectopy GI: Other: Abdomen soft, nondistended, nontender. Normoactive bowel sounds in all quadrants. Skin: General skin exam: normal color and no rashes or lesions noted Wounds: no wounds Neuro: Speech: normal speech Motor exam (neuro): 5/5 motor strength present throughout Sensory Exam: normal sensation Other: A&O x4 Extrem: General: normal to inspection Psych: Mental Status: mental status grossly normal Affect: normal affect Other: Good insight and judgment, pleasant H&P: Results Labs Labs: Short CBC 03/24/25 Range/Units 15:12 WBC 8.7 (4.5-10.0) K/mm3 Hgb 14.4 (12.0-15.0) g/dL Hct 45.8 (37.0-47.0) % Plt Count 228 (150-375) k/mm3 BMP 03/24/25 15:12 Sodium 141 Potassium 4.8 Chloride 105 Carbon Dioxide 29 BUN 11 Creatinine 0.84 Glucose 113 H Calcium 10.1 Cardiac Enzymes 03/24/25 Range/Units 15:12 Troponin I < 0.012 (0.000-0.034) ng/mL Liver Function 03/24/25 Range/Units 15:12 Total Bilirubin 0.5 (0.2-1.3) mg/dL AST 21 (14-36) U/L ALT 33 (6-35) U/L Alkaline Phosphatase 95 (38-126) U/L Albumin 4.3 (3.5-5.1) g/dL Urine 03/24/25 Range/Units 15:46 Urine Color Yellow (Yellow) Urine Appearance Clear (Clear) Urine pH 6.0 (5.0-9.0) Ur Specific [place] 1.015 (1.001-1.035) Urine Protein Negative (Negative) mg/dL Urine Glucose (UA) Negative (Negative) mg/dL Assessment and Plan Assessment and plan (1) Hypoxia: Code(s): R09.02 - Hypoxemia Status: Acute Assessment and Plan: Chest CTA: 1. No pulmonary embolism or other acute cardiopulmonary disease. 2. Mild emphysema with subsegmental air trapping related to associated small airway disease. Maintains greater than 92% at rest, however became hypoxic with ambulation - 82%, then able to come back up into the low 90s. History of asthma and chronic bronchitis. Imaging demonstrating mild emphysema and subsegmental air trapping. Will substitute patient's albuterol for DuoNeb scheduled. BNP within normal limits Check viral PCR No dysrhythmia or anemia. Home O2 evaluation ordered. Previously required, however in 2023 she passed her 6 minute walk test. Suspicion patient now has emphysema component to her asthma. Will exchanged albuterol for DuoNeb. Low suspicion for CHF as her BNP is within normal limits and no evidence of volume overload on exam or imaging. Low suspicion for pneumonia, no leukocytosis or consolidation on imaging. (2) Asthma-chronic obstructive pulmonary disease overlap syndrome: Code(s): J44.89 - Other specified chronic obstructive pulmonary disease Status: Acute Assessment and Plan: Exchanged albuterol for DuoNeb, scheduled. Continue Stiolto 1 puff b.i.d. Pulmonology consulted, available via phone tomorrow (Brittaney GUERRA). Patient unable to follow up with her office until June. Patient concerned about taking inhaler with inhaled corticosteroid as she frequently developed thrush with oral prednisone. Supply spacer, observed patient taking rescue inhaler, inadequate delivery of medication due to form. Has a spacer available at home and is aware this was no t the correct technique, however due to the level of shortness of breath she was unable to tolerate creating a seal (3) UTI (urinary tract infection): Qualifiers: Hematuria presence: without hematuria Urinary tract infection type: acute cystitis Qualified Code(s): N30.00 - Acute cystitis without hematuria Code(s): N39.0 - Urinary tract infection, site not specified Status: Acute Assessment and Plan: UA consistent with UTI. Previous micro reviewed. Patient grew E coli on 02/10/2025 that was resistant to Cipro and Levaquin. Patient started on Septra b.i.d. p.o. due to allergy history and most recent resistances. Patient reports she has tolerated this medication poor. (4) Sleep apnea: Qualifiers: Sleep apnea type: unspecified type Qualified Code(s): G47.30 - Sleep apnea, unspecified Code(s): G47.30 - Sleep apnea, unspecified Status: Chronic Assessment and Plan: Does not tolerate. States she has bought CPAP machines before (5) and she would continually acquire an infection from the mask despite proper disinfection. Plan Diet: Heart healthy GI Prophylaxis: Not currently indicated DVT Prophylaxis: SCDs IV fluids: None Lines/Tubes: Peripheral IV Code Status: Full code Quality VTE Prophylaxis VTE prophylaxis: mechanical ordered Hospitalist [facility] Advance Care Plan I have confirmed that the patient's Advanced Care Plan is present, code status is documented, or surrogate decision maker is listed in patient medical record.: Yes Medication Reconciliation I have utilized all available resources to obtain, update and review the patients current medications (includes all prescriptions, OTC, herbals, cannabis, and nutritional supplements).: Yes
[2025-03-24] MEDS: FUROSEMIDE 20 MG TABLET PO (22:48)
[2025-03-24] MEDS: FUROSEMIDE 40 MG TABLET PO (22:48)
[2025-03-24] MEDS: SULFAMETHOXAZOLE/TRIMETHOPRIM 800/160 MG DS TABLET 1 TAB PO (23:24)
[2025-03-24] MEDS: AMANTADINE HCL 100 MG CAPSULE BY MOUTH (23:24)
[2025-03-24] MEDS: BACLOFEN 10 MG TABLET 30 MG PO (23:24)
[2025-03-24] MEDS: TAMSULOSIN HCL 0.4 MG CAPSULE PO (23:24)
[2025-03-24] MEDS: MONTELUKAST SODIUM 10 MG TABLET PO (23:25)
[2025-03-24] MEDS: PANTOPRAZOLE 40 MG TABLET PO (23:25)
[2025-03-24] MEDS: SUCRALFATE SUSP 100 MG/ML 10 ML UDC 2000 MG PO (23:27)
[2025-03-24] MEDS: PRAVASTATIN SODIUM 20 MG TABLET 40 MG PO (23:30)
[2025-03-24] MEDS: DESIPRAMINE HCL 10 MG TABLET 15 MG PO (23:31)
[2025-03-25] VITALS (11 sets, daily range): BP systolic 136–144; BP diastolic 69–75; PULSE 79–99; RESP 18; TEMP 36.4–37; O2SAT 94–97
[2025-03-25 00:29] LABS: Influenza A QL RT-PCR Negative (Negative); Influenza B QL RT-PCR Negative (Negative); RSV RNA, RT-PCR Negative (Negative); SARS-CoV-2 RNA PCR Negative (Negative)
[2025-03-25] MEDS: IPRATROPIUM 0.5 MG/ALBUTEROL SULFATE 2.5 MG AMPUL.NEB 3 ML INHALATION ×3 (02:41→14:04)
[2025-03-25 05:20] LABS: Basophils Absolute Auto 0.1 K/mm3 (0.0-0.1); Basophils Percent Auto 0.7 % (0.2-1.2); Eosinophils Absolute Auto 0.3 K/mm3 (0-0.3); Eosinophils Percent Auto 3.8 % (0-4.4); Hematocrit 46.3 % (37.0-47.0); Hemoglobin 14.7 g/dL (12.0-15.0); Immature Granulocyte Absolute 0.04 K/mm3 (0.00-0.031); Immature Granulocyte Percent A 0.5 % (0-0.5); Lymphocytes Percent Auto 23.7 % (18.3-44.2); Mean Corpuscular HGB Conc 31.7 g/dl (32-36); Mean Corpuscular Hemoglobin 30.1 pg (26-34); Mean Corpuscular Volume 94.7 fl (80-100); Mean Platelet Volume 10.9 fl (7.4-10.4); Monocytes Absolute Auto 0.7 K/mm3 (0.1-0.6); Monocytes Percent Auto 9.7 % (2.6-8.5); Neutrophils Absolute Auto 4.7 K/mm3 (1.3-6.7); Neutrophils Percent Auto 61.6 % (45.5-73.1); Platelet Count Result 212 k/mm3 (150-375); Red Blood Count 4.89 M/mm3 (4.2-5.4); Red Cell Distribution Width 15.7 % (11.5-14.5); White Blood Count 7.6 K/mm3 (4.5-10.0)
[2025-03-25 05:32] LABS: Alanine Aminotransferase 32 U/L (6-35); Albumin Level 4.5 g/dL (3.5-5.1); Alkaline Phosphatase 102 U/L (38-126); Anion Gap 11 mmol/L (4-12); Aspartate Amino Transferase 21 U/L (14-36); Bilirubin,Total 0.5 mg/dL (0.2-1.3); Blood Urea Nitrogen 9 mg/dL (7-17); Calcium 9.5 mg/dL (8.4-10.2); Carbon Dioxide 30 mmol/L (22-30); Chloride 101 mmol/L (98-107); Estimated CRCL calculation 66 ml/min; Estimated Glomerular Filt Rate > 60; Glucose 101 mg/dL (65-110); Potassium 3.9 mmol/L (3.4-5.0); Sodium 142 mmol/L (137-145)
[2025-03-25] MEDS: LEVOTHYROXINE SODIUM 25 MCG TABLET PO (06:47)
[2025-03-25] MEDS: LEVOTHYROXINE SODIUM 150 MCG TABLET PO (06:47)
[2025-03-25] MEDS: UMECLIDINIUM/VILANTEROL 62.5-25 MCG ELLIPTA 1 PUFF INHALATION (07:45)
[2025-03-25] MEDS: SIMETHICONE 80 MG TAB.CHEW PO ×2 (09:17→12:30)
[2025-03-25] MEDS: FUROSEMIDE 20 MG TABLET PO (09:17)
[2025-03-25] MEDS: BACLOFEN 10 MG TABLET 30 MG PO ×2 (09:18→12:31)
[2025-03-25] MEDS: FAMOTIDINE 20 MG TABLET PO (09:18)
[2025-03-25] MEDS: FUROSEMIDE 40 MG TABLET PO (09:18)
[2025-03-25] MEDS: dilTIAZem HCL CD 120 MG CAP.24HR PO (09:18)
[2025-03-25] MEDS: SULFAMETHOXAZOLE/TRIMETHOPRIM 800/160 MG DS TABLET 1 TAB PO (09:18)
[2025-03-25] MEDS: CHOLECALCIFEROL 1,000 UNITS TABLET 1000 UNITS PO (09:19)
[2025-03-25] MEDS: ASPIRIN 81 MG ENTERIC TABLET PO (09:19)
[2025-03-25] MEDS: PANTOPRAZOLE 40 MG TABLET PO (09:19)
[2025-03-25] MEDS: OMEGA 3 POLYUNSAT FATTY ACIDS 1 GM CAP PO ×2 (09:19→12:30)
[2025-03-25] MEDS: DONEPEZIL HCL 10 MG TABLET PO (09:19)
[2025-03-25] MEDS: FLUTICASONE PROPIONATE 0.05% NA SPR 16 GM BTL (*BKC) 1 SPRAY NASAL (09:20)
[2025-03-25] MEDS: PETROLATUM OINTMENT 5 GM PACKET 1 APPLIC TOPICAL (10:28)
[2025-03-25] MEDS: AMANTADINE HCL 100 MG CAPSULE BY MOUTH (10:28)
--- NOTE | 2025-03-25 12:12 | P.PNIM_ITS ---
Progress Note: A&P Assessment and Plan (1) Hypoxia: Code(s): R09.02 - Hypoxemia Status: Acute Assessment and Plan: Chest CTA: 1. No pulmonary embolism or other acute cardiopulmonary disease. 2. Mild emphysema with subsegmental air trapping related to associated small airway disease. Maintains greater than 92% at rest, however became hypoxic with ambulation - 82%, then able to come back up into the low 90s. History of asthma and chronic bronchitis. Imaging demonstrating mild emphysema and subsegmental air trapping. Will substitute patient's albuterol for DuoNeb scheduled. BNP within normal limits Flu, RSV, covid negative No dysrhythmia or anemia Home O2 evaluation cancelled as patient is ambulating effectively on room air on observation. Suspicion patient now has emphysema component to her asthma. Will exchanged albuterol for DuoNeb. Low suspicion for CHF as her BNP is within normal limits and no evidence of volume overload on exam or imaging. Low suspicion for pneumonia, no leukocytosis or consolidation on imaging. (2) Asthma-chronic obstructive pulmonary disease overlap syndrome: Code(s): J44.89 - Other specified chronic obstructive pulmonary disease Status: Acute Assessment and Plan: - No acute cardiopulmonary disease seen on chest CTA, Mild emphysema with subsegmental air trapping related to associated small airway disease. - Exchanged albuterol for DuoNeb, scheduled. - Continue Anoro Ellipta 1 puff b.i.d. - Pulmonology consulted. Patient unable to follow up with her office until June. - Patient concerned about taking inhaler with inhaled corticosteroid as she frequently developed thrush with oral prednisone. - Supply spacer, observed patient taking rescue inhaler, inadequate delivery of medication due to form. Has a spacer available at home and is aware this was not the correct technique, however due to the level of shortness of breath she was unable to tolerate creating a seal - Current treatment of DuoNeb and Anoro Ellipta to be continued inpatient - Tolerating room air with ambulation - Recommend pulmonology follow-up outpatient for optimization (3) UTI (urinary tract infection): Qualifiers: Hematuria presence: without hematuria Urinary tract infection type: acute cystitis Qualified Code(s): N30.00 - Acute cystitis without hematuria Code(s): N39.0 - Urinary tract infection, site not specified Status: Acute Assessment and Plan: - UA consistent with UTI. - Previous micro reviewed. Patient grew E coli on 02/10/2025 that was resistant to Cipro and Levaquin. - Patient started on Septra b.i.d. p.o. due to allergy history and most recent resistances. Patient reports she has tolerated this medication prior - 03/25 burning symptoms remain, no fever or chills, WBC WNL, vital signs stable, continue tx (4) Sleep apnea: Qualifiers: Sleep apnea type: unspecified type Qualified Code(s): G47.30 - Sleep apnea, unspecified Code(s): G47.30 - Sleep apnea, unspecified Status: Chronic Assessment and Plan: - Does not tolerate CPAP. States she has bought CPAP machines before (5) and she would continually acquire an infection from the mask despite proper disinfection. (5) Chronic diarrhea: Code(s): K52.9 - Noninfective gastroenteritis and colitis, unspecified Status: Acute Assessment and Plan: - Persistent diarrhea described for the last 30 years, occurring 5-15 times a day per patient - Sees Janeth Foreman at [facility] for GI, multiple treatments attempted but utilize PRN management when traveling, tolerates well - Negative for new onset abdominal pain, nausea, vomiting, vital signs and WBC WNL. Hgb 14.7 - Testing stool for CDiff given recent extensive history of antibiotics - awaiting results - Recommend GI follow-up outpatient (6) Chest pain: Qualifiers: Chest pain type: unspecified Qualified Code(s): R07.9 - Chest pain, u nspecified Code(s): R07.9 - Chest pain, unspecified Status: Acute Assessment and Plan: - Intermittent chest pain associated with severe dyspnea - Chronic and seen in the past for the issue - EKG negative x2 on presentation, troponin negative, BNP negative - No acute distress, benign physical exam - Low suspicion of ischemic causes of chest pain Plan Diet: Heart healthy GI Prophylaxis: Not currently indicated DVT Prophylaxis: SCDs IV fluids: None Lines/Tubes: Peripheral IV Code Status: Full code Subjective Date/time seen: 03/25/25 12:12 Interval history: CC: Shortness of breath HPI: Patient is a 64-year-old female with history of multiple sclerosis, hypoth yroidism, anxiety, chronic bronchitis, HLD, htn, asthma, and FALGUNI (no toleration of c-pap) presents here with shortness of breath. Beginning around Leandro of last year shortness of breath has progressively worsened and is now conversational. Accompanied by intermittent sputum, cough, and chest pain. Chest pain is midsternal and has been intermittent, reportedly relieved with nitroglycerin in the past. Does not radiate, no diaphoresis, no nausea, no reproducibility with palpation. Patient was seen and examined. States she is better post treatment, but awoke coughing and struggling to breathe. Currently having some difficulty breathing, but manages conversation well. Mentions recent steroid taper and and azithromycin starting 02/24 via primary care when she presented with shortness of breath but symptoms persisted. Worried about medications from home regarding management of chronic conditions. Also described urinary burning for 2 days now and reports history of frequent UTIs. Also describes a chronic diarrhea shes had for 30 years, including 5-15 bowel movements a day, that she sees GI for with little relief. Negative for abdominal pain, nausea, vomiting, fever, chills, headache, or new onset dizziness/fatigue/paraesthesias. Review of Systems Review of Systems: All systems reviewed & are unremarkable except as noted in HPI and below Exam Narrative: APPEARANCE: Well appearing, no pain, no distress, well-nourished. HEAD: normocephalic, atraumatic. ENT: EOMI, conjunctivae clear. Moist mucus membranes. NECK: Supple. No adenopathy, no masses. RESPIRATORY: Airway patent, respirations nonlabored. Clear to auscultation bilaterally, no rales, rhonchi, wheezing. CARDIOVASCULAR: Regular rate and rhythm ABDOMINAL: Soft, nontender, nondistended, normal bowel sounds MUSCULOSKELETAL: Moves all extremities. Strength/ROM intact, No edema NEURO: Alert. No difficulties with speech. SKIN: Warm, dry. Normal Color Objective Data Vital Signs Vital Signs: Vital Signs - 24 hr 03/24/25 14:06 03/24/25 15:15 03/24/25 15:15 Temperature 97.3 F L Pulse Rate 82 73 Respiratory Rate 22 H 14 Blood Pressure 123/67 Pulse Oximetry 100 99 100 Oxygen Delivery Room Air Room Air 03/24/25 15:31 03/24/25 16:36 03/24/25 16:47 Temperature Pulse Rate 71 85 82 Respiratory Rate 14 18 22 H Blood Pressure 135/71 157/99 H 149/77 H Pulse Oximetry 100 100 Oxygen Delivery 03/24/25 17:02 03/24/25 17:17 03/24/25 20:00 Temperature Pulse Rate 81 76 96 Respiratory Rate 22 H 20 Blood Pressure 145/67 H 155/69 H Pulse Oximetry 100 96 Oxygen Delivery 03/24/25 21:46 03/25/25 00:00 03/25/25 02:30 Temperature 97.5 F L Pulse Rate 79 98 Respiratory Rate 18 Blood Pressure 144/80 H Pulse Oximetry 97 97 Oxygen Delivery Room Air 03/25/25 02:43 03/25/25 02:55 03/25/25 04:00 Temperature Pulse Rate 92 93 79 Respiratory Rate 18 18 Blood Pressure Pulse Oximetry Oxygen Delivery 03/25/25 05:23 03/25/25 07:46 03/25/25 07:46 Temperature 98.6 F Pulse Rate 81 85 Respiratory Rate 18 18 Blood Pressure 136/75 Pulse Oximetry 96 97 Oxygen Delivery Room Air 03/25/25 08:00 Temperature Pulse Rate 92 Respiratory Rate 18 Blood Pressure Pulse Oximetry Oxygen Delivery Intake/Output Intake/Output: Intake & Output 03/22/25 03/23/25 03/24/25 03/25/25 23:59 23:59 23:59 23:59 Intake Total 860 Balance 860 Meds/Results Medications: Active Medications Generic Name Dose Route Start Last Admin Trade Name Freq PRN Reason Stop Dose Admin Acetaminophen 500 mg 03/24/25 22:02 Acetaminophen 500 Mg Tablet PO Q6H PRN Pain Albuterol/Ipratropium 3 ml 03/25/25 02:00 03/25/25 07:45 Ipratropium 0.5 Mg/Albuterol Sulfate 2.5 Mg Ampul.Neb 3 Ml INHALATION 3 ml Q6HRT UJDSON Administration Amantadine HCl 100 mg 03/24/25 22:30 03/25/25 10:28 Amantadine Hcl 100 Mg Capsule BY MOUTH 100 mg Q12HR JUDSON Administration Aspirin 81 mg 03/25/25 09:00 03/25/25 09:19 Aspirin 81 Mg Enteric Tablet PO 81 mg DAILY JUDSON Administration Baclofen 30 mg 03/24/25 22:35 03/25/25 09:18 Baclofen 10 Mg Tablet PO 30 mg QID JUDSON Administration Calcium Carbonate 400 mg 03/25/25 01:12 Calcium Carbonate (Tums) 500 Mg (200 Mg Elemental) PO TID PRN Abdominal Pain Desipramine HCl 15 mg 03/24/25 22:35 03/24/25 23:31 Desipramine Hcl 10 Mg Tablet PO 15 mg QPM JUDSON Administration Diltiazem HCl 120 mg 03/25/25 09:00 03/25/25 09:18 Diltiazem Hcl Cd 120 Mg Cap.24hr PO 120 mg DAILY JUDSON Administration Donepezil HCl 10 mg 03/25/25 09:00 03/25/25 09:19 Donepezil Hcl 10 Mg Tablet PO 10 mg DAILY JUDSON Administration Emollient Ointment 1 applic 03/25/25 09:00 03/25/25 10:28 Petrolatum Ointment 5 Gm Packet TOPICAL 1 applic DAILY JUDSON Administration Ergocalciferol 50,000 units 03/31/25 09:00 Ergocalciferol 50,000 Units Capsule PO WEEKLY JUDSON Famotidine 20 mg 03/25/25 09:00 03/25/25 09:18 Famotidine 20 Mg Tablet PO 20 mg DAILY JUDSON Administration Fish Oil 1 gm 03/25/25 09:00 03/25/25 09:19 Buckeye 3 Polyunsat Fatty Acids 1 Gm Cap PO 1 gm TID JUDSON Administration Fluticasone Propionate 1 spray 03/24/25 22:05 03/25/25 09:20 Fluticasone Propionate 0.05% Na Spr 16 Gm Btl (*Bkc) NASAL 1 spray Q12HR JUDSON Administration Furosemide 20 mg 03/24/25 22:35 03/25/25 09:17 Furosemide 20 Mg Tablet PO 20 mg BID JUDSON Administration Furosemide 40 mg 03/24/25 22:05 03/25/25 09:18 Furosemide 40 Mg Tablet PO 40 mg BID JUDSON Administration Hyoscyamine 0.125 mg 03/24/25 22:05 Hyoscyamine Sulfate 0.125 Mg Tablet PO QID PRN ESOPHAGEAL SPASMS Levothyroxine Sodium 150 mcg 03/25/25 06:30 03/25/25 06:47 Levothyroxine Sodium 150 Mcg Tablet PO 150 mcg DAILY@0630 JUDSON Administration Levothyroxine Sodium 25 mcg 03/25/25 06:30 03/25/25 06:47 Levothyroxine Sodium 25 Mcg Tablet PO 25 mcg DAILY@0630 [facility] Administration Miscellaneous Information 1 each 03/24/25 00:01 03/25/25 10:56 Glatiramer [Copaxone] 20 Mg/Ml Syringe Is Nonformulary, Please Send To Pharmacy For Jonnie XX 04/23/25 00:00 Not Given CLARIFY JUDSON Montelukast Sodium 10 mg 03/24/25 22:35 03/24/25 23:25 Montelukast Sodium 10 Mg Tablet PO 10 mg QPM JUDSON Administration Non-Formulary Medication 20 mg 03/25/25 09:00 Glatiramer [Copaxone] SUB-Q 04/24/25 08:59 DAILY JUDSON Pantoprazole Sodium 40 mg 03/24/25 22:40 03/25/25 09:19 Pantoprazole 40 Mg Tablet PO 40 mg Q12HR JUDSON Administration Potassium Chloride 60 meq 03/25/25 09:00 Potassium Chloride 20 Meq Packet (For Liquid) PO DIRECTED JUDSON Pravastatin Sodium 40 mg 03/24/25 22:35 03/24/25 23:30 Pravastatin Sodium 20 Mg Tablet PO 40 mg QPM JUDSON Administration Simethicone 80 mg 03/25/25 09:00 03/25/25 09:17 Simethicone 80 Mg Tab.Chew PO 80 mg TID JUDSON Administration Simethicone 250 mg 03/25/25 09:00 Simethicone 125 Mg Chew Tab PO TID JUDSON Sucralfate 2,000 mg 03/24/25 06:30 03/24/25 23:57 Sucralfate Susp 100 Mg/Ml 10 Ml Udc PO Not Given ACHS JUDSON Tamsulosin HCl 0.4 mg 03/24/25 22:40 03/24/25 23:24 Tamsulosin Hcl 0.4 Mg Capsule PO 0.4 mg QPM JUDSON Administration Trimethoprim/Sulfamethoxazole 1 tab 03/24/25 22:35 03/25/25 09:18 Sulfamethoxazole/Trimethoprim 800/160 Mg Ds Tablet PO 04/01/25 22:34 1 tab Q12HR JUDSON Administration Umeclidinium/Vilanterol 1 puff 03/25/25 08:00 03/25/25 07:45 Umeclidinium/Vilanterol 62.5-25 Mcg Ellipta INHALATION 1 puff DAILYRT JUDSON Administration Vitamin D 1,000 units 03/25/25 09:00 03/25/25 09:19 Cholecalciferol 1,000 Units Tablet PO 1,000 units DAILY JUDSON Administration Radiology Results: ITS Impressions Chest CTA 03/24/25 16:26 IMPRESSION: 1. No pulmonary embolism or other acute cardiopulmonary disease. 2. Mild emphysema with subsegmental air trapping related to associated small airway disease. Labs Labs: Laboratory Results - last 24 hr 03/24/25 03/24/25 03/24/25 15:12 15:46 23:47 WBC 8.7 RBC 4.80 Hgb 14.4 Hct 45.8 MCV 95.4 MCH 30.0 MCHC 31.4 L RDW 15.8 H Plt Count 228 MPV 10.6 H Immature Gran % (Auto) 0.6 H Neut % (Auto) 64.1 Lymph % (Auto) 22.6 Sampson % (Auto) 8.8 H Eos % (Auto) 3.2 Baso % (Auto) 0.7 Lymph # (Auto) 1.97 Sampson # (Auto) 0.8 H Eos # (Auto) 0.3 Baso # (Auto) 0.1 Abs Immat Gran (auto) 0.05 H Absolute Neuts (auto) 5.6 Absolute Nucleated RBC 0.000 Nucleated RBC % 0.0 PT 12.8 INR 0.9 APTT 29.6 Sodium 141 Potassium 4.8 Chloride 105 Carbon Dioxide 29 Anion Gap 7 BUN 11 Creatinine 0.84 Estim Creat Clear Calc 66 Estimated GFR > 60 Glucose 113 H Calcium 10.1 Total Bilirubin 0.5 AST 21 ALT 33 Alkaline Phosphatase 95 Troponin I < 0.012 NT-Pro-B Natriuret Pep 27 Total Protein 7.0 Albumin 4.3 Urine Color Yellow Urine Appearance Clear Urine pH 6.0 Ur Specific [place] 1.015 Urine Protein Negative Urine Glucose (UA) Negative Urine Ketones Negative Ur Blood (Man) Trace Urine Nitrate Negative Urine Bilirubin Negative Urine Urobilinogen 0.2 Leukocyte Esterase Rfl 3+ H Urine RBC 0-2 Urine WBC >100 H Ur Squamous Epith Cells None seen Urine Bacteria None seen Urine Casts 0-2 Influenza A (RT-PCR) Negative Influenza B (RT-PCR) Negative RSV (RT-PCR) Negative SARS-CoV-2 RNA (RT-PCR) Negative 03/25/25 04:33 WBC 7.6 RBC 4.89 Hgb 14.7 Hct 46.3 MCV 94.7 MCH 30.1 MCHC 31.7 L RDW 15.7 H Plt Count 212 MPV 10.9 H Immature Gran % (Auto) 0.5 Neut % (Auto) 61.6 Lymph % (Auto) 23.7 Sampson % (Auto) 9.7 H Eos % (Auto) 3.8 Baso % (Auto) 0.7 Lymph # (Auto) 1.80 Sampson # (Auto) 0.7 H Eos # (Auto) 0.3 Baso # (Auto) 0.1 Abs Immat Gran (auto) 0.04 H Absolute Neuts (auto) 4.7 Absolute Nucleated RBC 0.000 Nucleated RBC % 0.0 PT INR APTT Sodium 142 Potassium 3.9 Chloride 101 Carbon Dioxide 30 Anion Gap 11 BUN 9 Creatinine 0.83 Estim Creat Clear Calc 66 Estimated GFR > 60 Glucose 101 Calcium 9.5 Total Bilirubin 0.5 AST 21 ALT 32 Alkaline Phosphatase 102 Troponin I NT-Pro-B Natriuret Pep Total Protein 8.0 Albumin 4.5 Urine Color Urine Appearance Urine pH Ur Specific [place] Urine Protein Urine Glucose (UA) Urine Ketones Ur Blood (Man) Urine Nitrate Urine Bilirubin Urine Urobilinogen Leukocyte Esterase Rfl Urine RBC Urine WBC Ur Squamous Epith Cells Urine Bacteria Urine Casts Influenza A (RT-PCR) Influenza B (RT-PCR) RSV (RT-PCR) SARS-CoV-2 RNA (RT-PCR) Quality VTE Prophylaxis VTE prophylaxis: mechanical ordered
--- NOTE | 2025-03-25 13:41 | PHAR ---
The patient's home med of Glatiramer 20mg/ml has been verified.
--- NOTE | 2025-03-25 15:51 | P.DS_ITS ---
DS: Admitting Diagnosis Discharge Date 03/25/2025 Admitting Diagnosis Hypoxia Asthma-chronic obstructive pulmonary disease overlap syndrome UTI DS: Discharge Diagnosis Discharge Diagnosis (1) Hypoxia: Code(s): R09.02 - Hypoxemia Status: Acute (2) Asthma-chronic obstructive pulmonary disease overlap syndrome: Code(s): J44.89 - Other specified chronic obstructive pulmonary disease Status: Acute (3) UTI (urinary tract infection): Qualifiers: Hematuria presence: without hematuria Urinary tract infection type: acute cystitis Qualified Code(s): N30.00 - Acute cystitis without hematuria Code(s): N39.0 - Urinary tract infection, site not specified Status: Acute (4) Sleep apnea: Qualifiers: Sleep apnea type: unspecified type Qualified Code(s): G47.30 - Sleep apnea, unspecified Code(s): G47.30 - Sleep apnea, unspecified Status: Chronic DS: Summary Hospital Course Reason for hospitalization: Shortness of Breath Hospital Course: 64 y/o F with PMH of multiple sclerosis, hypothyroidism, anxiety, chronic bronchitis, HLD, asthma, hypertension, and FALGUNI (does not tolerate) presents here with shortness of breath. The patient presents here from home for further evaluation of shortness of breath on 03/24/2025. She reports this started around October of 2024. She reports this has been worked up extensively through her PCP. She describes the shortness of breath as occurring with exertion and now conversational. It is accompanied by intermittent sputum production and continues to cough (but has been less) and chest pain. She reports the chest pain has been intermittent for the last few weeks and has only been occurring when the shortness of breath is severe. Describes chest pain, pressure, midsternal, nonradiating, and intermittent. She denies nausea, vomiting, diarrhea, fever, or chills. She has a respiratory history significant for chronic bronchitis, asthma, former smoker (cessation 30 years ago). She follows with Brittaney GUERRA for her pulmonary care, next available appt was not until June. Of note, she reports she had ?surgery ?performed on her back yesterday at skin lesion excised and sent for pathology. Patient is additionally reporting 1 day of burning with urination. She denies abdominal pain. Initial VS at presentation: 97.3? F, HR 82, R 22, 123/67, and 100% on RA. ED workup showed: No leukocytosis, no anemia, normal coags, no significant electrolyte derangements, creatinine 0.84 and GFR >60, glucose 113, BNP 27, UA suggestive of UTI. Chest CTA showed no PE or other acute cardiopulmonary disease, mild emphysema with sub segmental air trapping related to associated small airway disease. EKG showed sinus rhythm, rate 76, early precordial R/S transition. Chest CTA showed no pulmonary embolism or other acute cardiopulmonary disease, mild emphysema with subsegmental air trapping related to associated small airway disease. She has continued to maintain greater than 92% O2 saturation at rest and with ambulation. She has been able to ambulate throughout her room with O2 saturation dropping below 94%. She has a history of asthma and chronic bronc hitis with imaging demonstrating mild emphysema and subsegment clear trapping, given these findings she may benefit from adjusting her albuterol for a DuoNeb. We will adjust this upon discharge. BNP is within normal limits, flu RSV and COVID viral panel negative. EKG showed sinus rhythm and early precordial R/S transition, no significant changes from previous EKG. The patient expressed chest pain but this appears to be chronic issue, as she has been seen by clinical services assistant after going to the ER for similar issue within this past month. Troponin negative, chest x-ray negative for any acute findings. Patient has a history of requiring esophageal dilation through GI. At this time patient states that this pain did not feel any different than chest pain she has experienced in the past year. Pulmonology was consulted but this was canceled as patient demonstrated appropriate O2% saturation with ambulation and response to breathing treatments. I spoke with Dr. Quispe as the patient had an appointment scheduled in June this year, and Dr. Quispe felt as though it was appropriate to see the patient at an earlier date and instructed the patient to follow up with her office in the outpatient setting regarding her visit. Urinalysis showed white blood cell and 3+leukocyte esterase, but patient was afebrile with no leukocytosis and stable vital signs. Will continue Septra for UTI as urine culture still pending at this time. Patient a long list of allergies and medications she takes, symptom presentation likely has an underlying psychiatric component. Patient seen multiple specialists for chronic constipation for the past 30 years, as well as multiple pulmonologists and cardiologists. Will recommend patient follow-up with her primary care physician closely regarding her polypharmacy and possible psychologist referral. Patient is amenable to this plan and feels comfortable for discharge at this time. Blood work is otherwise stable and vital signs are within normal limits. No concern for any acute concerns at this time. Plan for discharge home. Status at Discharge Functional status at discharge: independent ambulation Overall status at discharge: patient is back to baseline Time Spent with Patient Time attestation: Total time spent providing and/or coordinating discharge services: 45 Exam Const: General: comfortable and no acute distress Other: , female, obese body habitus, nontoxic appearance HENMT: Face/Nose/Sinus: Normal nares present Mouth: Yes moist mucous membranes Eyes: General: appearance normal, both eyes and all related structures Sclera: sclerae normal Pupils: Equal, round and reactive pupils present EOM: EOMs intact bilaterally Resp: Other: No wheezing, primarily in the upper lungs bilaterally. No crackles. + conversational dyspnea and moderate tachypnea post-coughing episode. Cardio: Rate: regular rate Rhythm: regular rhythm Other: S1-S2 present without murmur, rub, ectopy GI: Other: Abdomen soft, nondistended, nontender. Normoactive bowel sounds in all quadrants. Skin: General skin exam: normal color and no rashes or lesions noted Wo unds: no wounds Neuro: Cranial nerves: Yes Equal, round and reactive pupils present Speech: normal speech Motor exam (neuro): 5/5 motor strength present throughout Sensory Exam: normal sensation Other: A&O x4 Extrem: General: normal to inspection Psych: Mental Status: mental status grossly normal Affect: normal affect Other: Good insight and judgment, pleasant DS: Data Data Completed and Pending Pending studies at discharge: Stool culture Toxigenic C Diff Labs on day of discharge: Labs from last 24 hours 03/25/25 03/25/25 03/24/25 15:13 04:33 23:47 WBC 7.6 RBC 4.89 Hgb 14.7 Hct 46.3 MCV 94.7 MCH 30.1 MCHC 31.7 L RDW 15.7 H Plt Count 212 MPV 10.9 H Immature Gran % (Auto) 0.5 Neut % (Auto) 61.6 Lymph % (Auto) 23.7 Crawford % (Auto) 9.7 H Eos % (Auto) 3.8 Baso % (Auto) 0.7 Lymph # (Auto) 1.80 Crawford # (Auto) 0.7 H Eos # (Auto) 0.3 Baso # (Auto) 0.1 Abs Immat Gran (auto) 0.04 H Absolute Neuts (auto) 4.7 Absolute Nucleated RBC 0.000 Nucleated RBC % 0.0 Sodium 142 Potassium 3.9 Chloride 101 Carbon Dioxide 30 Anion Gap 11 BUN 9 Creatinine 0.83 Estim Creat Clear Calc 66 Estimated GFR > 60 Glucose 101 Calcium 9.5 Total Bilirubin 0.5 AST 21 ALT 32 Alkaline Phosphatase 102 Troponin I NT-Pro-B Natriuret Pep Total Protein 8.0 Albumin 4.5 Urine Color Urine Appearance Urine pH Ur Specific [place] Urine Protein Urine Glucose (UA) Urine Ketones Ur Blood (Man) Urine Nitrate Urine Bilirubin Urine Urobilinogen Leukocyte Esterase Rfl Urine RBC Urine WBC Ur Squamous Epith Cells Urine Bacteria Urine Casts C. difficile (PCR) Pending Influenza A (RT-PCR) Negative Influenza B (RT-PCR) Negative RSV (RT-PCR) Negative SARS-CoV-2 RNA (RT-PCR) Negative 03/24/25 03/24/25 15:46 15:12 WBC RBC Hgb Hct MCV MCH MCHC RDW Plt Count MPV Immature Gran % (Auto) Neut % (Auto) Lymph % (Auto) [place] % (Auto) Eos % (Auto) Baso % (Auto) Lymph # (Auto) [place] # (Auto) Eos # (Auto) Baso # (Auto) Abs Immat Gran (auto) Absolute Neuts (auto) Absolute Nucleated RBC Nucleated RBC % Sodium Potassium Chloride Carbon Dioxide Anion Gap BUN Creatinine Estim Creat Clear Calc Estimated GFR Glucose Calcium Total Bilirubin AST ALT Alkaline Phosphatase Troponin I < 0.012 NT-Pro-B Natriuret Pep 27 Total Protein Albumin Urine Color Yellow Urine Appearance Clear Urine pH 6.0 Ur Specific [place] 1.015 Urine Protein Negative Urine Glucose (UA) Negative Urine Ketones Negative Ur Blood (Man) Trace Urine Nitrate Negative Urine Bilirubin Negative Urine Urobilinogen 0.2 Leukocyte Esterase Rfl 3+ H Urine RBC 0-2 Urine WBC >100 H Ur Squamous Epith Cells None seen Urine Bacteria None seen Urine Casts 0-2 C. difficile (PCR) Influenza A (RT-PCR) Influenza B (RT-PCR) RSV (RT-PCR) SARS-CoV-2 RNA (RT-PCR) Discharge Plan Discharge Attending physician on discharge: Thomas De La Cruz Consulting providers: Armida Quispe Discharging Clinician: Thomas De La Cruz Anticipated Discharge Date/Time: 03/25/25 15:31 Patient Disposition: Home Activity: as tolerated Diet: as tolerated Discharge Instructions: Discharge disposition: Stable Take medications as prescribed. You are instructed to hold taking your albuterol and starting using a DuoNeb You have pending results at the time of your discharge. You will receive a call regarding these results if any changes need to be made regarding your me dications. Monitor blood pressures Take caution while standing, rising, or moving Change positions slowly taking a break between each position change If you standing feel dizzy sit back down and take a break Encouraged to continue with yearly vaccinations Return to the emergency department if he developed sudden shortness of breath, chest pain, nausea, vomiting, upset stomach or intractable diarrhea Return to the emergency department if you develop fever greater than 101.5 Follow-up with the primary care physician within 1-2 weeks Follow up with your Gastroenterology Dr as soon as possible for further evaluation of your symptoms. Thank you for [facility] for your healthcare needs Patient Instructions: Antibiotic Form Patient Language: Malian Stand Alone Forms: General Discharge Information Follow-up/Referrals: Armida Quispe MD [Physician] - Lobito Gonzalez DO [Primary Care Provider] - Discharge Medications: New ipratropium-albuterol 20-100 mcg/actuation mist 1 puff inhalation QID Qty: 4 0RF Rx Instructions: space evenly during waking hours sulfamethoxazole-trimethoprim 800-160 mg tablet 1 tablet PO Q12H 5 Days Qty: 10 0RF Continued Stiolto Respimat 2.5-2.5 mcg/actuation mist 1 puff INHALATION BID levothyroxine [Levo-T] 175 mcg tablet 175 mcg PO DAILY fluticasone propionate [Flonase Allergy Relief] 50 mcg/actuation spray,suspension 1 spray intranasal Q12H Rx Instructions: administer into each nostril omega [id number] oil [Fish Oil] 1,000 mg (120 mg-180 mg) capsule 1 cap PO TID (DME) Peak Air Peak Flow Meter Device See Rx Instructions .Route Qty: 1 1RF Rx Instructions: As directed exemestane 25 mg tablet 25 mg PO DAILY Rx Instructions: must administer after a meal baclofen 10 mg tablet 30 mg PO QID furosemide 20 mg tablet 20 mg PO BID Qty: 180 3RF Rx Instructions: This is in addition to her her furosemide 40mg bid acetaminophen [Tylenol Extra Strength] 500 mg Tablet 500 mg PO Q6H PRN (Reason: Pain) fluoride (sodium) [PreviDent] 1.1 % Gel 1 applic DENTAL HS esomeprazole magnesium 40 mg capsule,delayed release(DR/EC) 40 mg PO Q12H sucralfate 100 mg/mL suspension 20 ml PO DIRECTED Rx Instructions: takes 5 times daily before liquid K [place] Oil 1,000 mg capsule 1 cap PO DAILY Patient Comments: takes with exemestane Rx Instructions: administer with a meal hyoscyamine sulfate 0.125 mg tablet, sublingual See Rx Instructions .ROUTE .COMPLEX Rx Instructions: TAKE 1 TABLET BY MOUTH 4 TIMES A DAY NEEDED FOR esophagaeal spasms famotidine [Acid Controller] 20 mg tablet 20 mg PO DAILY glatiramer [Copaxone] 20 mg/mL syringe 20 mg SUB-Q DAILY aspirin [Adult Low Dose Aspirin] 81 mg tablet,delayed release (DR/EC) 81 mg PO DAILY biotin 5 mg capsule 5 mg PO DAILY Emgality Pen 120 mg/mL pen injector 120 mg SUB-Q MONTHLY glucosamine-chondroitin 500-400 mg capsule 1 cap PO TID Rx Instructions: give with meal/snack simethicone [Gas-X Extra Strength] 125 mg tablet,chewable 250 mg PO TID calcium carbonate [Tums] 200 mg calcium (500 mg) tablet,chewable 1,200 mg PO TID PRN (Reason: Abdominal Pain) desipramine 10 mg tablet 15 mg PO QPM Rx Instructions: 1.5 tables sublingual for esophageal spasms cholecalciferol (vitamin D3) [Vitamin D3] 25 mcg (1,000 unit) capsule 25 mcg PO DAILY Qty: 100 1RF amantadine HCl 100 mg capsule See Rx Instructions .ROUTE .COMPLEX Qty: 180 3RF Dose Instruction: TAKE 1 CAPSULE BY MOUTH TWICE DAILY Rx Instructions: TAKE 1 CAPSULE BY MOUTH TWICE DAILY montelukast [Singulair] 10 mg tablet 10 mg PO DAILY Qty: 100 2RF pravastatin 40 mg tablet 40 mg PO DAILY Qty: 100 2RF donepezil 10 mg tablet 10 mg PO DAILY Qty: 90 1RF furosemide 40 mg tablet See Rx Instructions .ROUTE .COMPLEX Qty: 180 3RF Dose Instruction: TAKE 1 TABLET BY MOUTH TWICE DAILY Rx Instructions: TAKE 1 TABLET BY MOUTH TWICE DAILY ergocalciferol (vitamin D2) [Vitamin D2] 1,250 mcg (50,000 unit) capsule See Rx Instructions .ROUTE .COMPLEX Qty: 13 3RF Dose Instruction: TAKE 1 CAPSULE BY MOUTH WEEKLY ON FRIDAYS Rx Instructions: TAKE 1 CAPSULE BY MOUTH WEEKLY ON FRIDAYS diltiazem HCl 120 mg capsule,extended release 24hr 120 mg PO DAILY Qty: 100 2RF tamsulosin 0.4 mg capsule See Rx Instructions .ROUTE .COMPLEX Qty: 90 3RF Dose Instruction: TAKE 1 CAPSULE BY MOUTH DAILY Rx Instructions: TAKE 1 CAPSULE BY MOUTH DAILY potassium chloride 20 mEq/15 mL liquid See Rx Instructions .ROUTE .COMPLEX Qty: 66054 3RF Dose Instruction: DILUTE 45 ML (60 MEQ) IN AT LEAST 4 OUNCES OF WATER OR JUICE AND DRINK BY MOUTH 5 TIMES DAILY Rx Instructions: DILUTE 45 ML (60 MEQ) IN AT LEAST 4 OUNCES OF WATER OR JUICE AND DRINK BY MOUTH 7 TIMES DAILY Discontinued albuterol sulfate [Ventolin HFA] 90 mcg/actuation HFA aerosol inhaler 2 inh inhalation .q12 Stiolto Respimat 2.5-2.5 mcg/actuation mist 1 puff inhalation .q12hr simethicone [Gas Relief (simethicone)] 80 mg tablet,chewable 80 mg PO TID Rx Instructions: after meals cranberry fruit 400 mg capsule 4,000 mg PO TID Rx Instructions: 2 cap TID albuterol sulfate [Ventolin HFA] 90 mcg/actuation HFA aerosol inhaler 2 puff INHALATION QID PRN (Reason: Shortness Of Breath) Qty: 25.5 0RF Date of admission: 03/24/25 16:51 Primary Care Provider: Lobito Gonzalez Admitting Provider: Gildardo Kamara Attending physician on admission: Thomas De La Cruz Condition: Stable Quality VTE Prophylaxis VTE prophylaxis: mechanical ordered
[2025-03-25 21:30] LABS: Toxigenic C. Diff NEGATIVE (NEGATIVE)
== END 2025-03-25 16:41 | disposition home or self-care (01) ==
LOC: ANHED 16:51 → ANH3MED 17:19
PROVIDERS: Registered Nurse; Student in an Organized Health Care Education/Training Program; Admitting Provider Internal Medicine; Emergency Provider Emergency Medicine; PCP Internal Medicine; Visit Provider Physician Assistant
DX: R09.02 Hypoxemia (principal); J44.89 Other specified chronic obstructive pulmonary disease; N30.00 Acute cystitis without hematuria; G47.33 Obstructive sleep apnea (adult) (pediatric); K52.9 Noninfective gastroenteritis and colitis, unspecified; R07.9 Chest pain, unspecified; E03.9 Hypothyroidism, unspecified; E78.00 Pure hypercholesterolemia, unspecified; G35 Multiple sclerosis; I10 Essential (primary) hypertension; F41.9 Anxiety disorder, unspecified; E11.9 Type 2 diabetes mellitus without complications; I25.2 Old myocardial infarction; G43.909 Migraine, unspecified, not intractable, without status migrainosus; E55.9 Vitamin D deficiency, unspecified; M85.80 Other specified disorders of bone density and structure, unspecified site; M19.90 Unspecified osteoarthritis, unspecified site; Z20.822 Contact with and (suspected) exposure to COVID-19; Z79.51 Long term (current) use of inhaled steroids; Z79.82 Long term (current) use of aspirin; Z79.2 Long term (current) use of antibiotics; Z79.899 Other long term (current) drug therapy; Z86.718 Personal history of other venous thrombosis and embolism; Z87.891 Personal history of nicotine dependence; Z85.3 Personal history of malignant neoplasm of breast; Z90.13 Acquired absence of bilateral breasts and nipples
CPT/HCPCS: 36415; 71275; 80053; 81001; 83880; 84484; 85025; 85610; 85730; 87086; 87186; 87493; 87637; 93005; 94640; 99285; A9270; G0378; Q9967

== ENCOUNTER 2025-05-07 11:54 | Emergency (ER) | payer MEDICARE, SELFPAY ==
--- NOTE | 2025-05-07 11:58 | ED.SKABFB ---
HPI - Skin/Abscess/Foreign Bdy General Chief complaint: Skin/Abscess/Foreign Body Stated complaint: hives Source: patient Mode of arrival: ambulatory Limitations: no limitations History of Present Illness HPI narrative: 64-year-old male presented for complaint of red itchy rash to under arms and lower abdomen buttocks. Onset yesterday morning. Endorses she has been on sulfa antibiotic for 2 days, for UTI. Has applied baby powder to the site. Denies lip, tongue, or throat swelling, shortness of breath or wheezing. Denies changes to soap, detergent, lotion, or any other exposures. No one else in the house or any contacts with similar symptoms. Related Data Home Medications ?Medication ?Instructions ?Recorded ?Confirmed ?Last Taken ?Type aspirin 81 mg tablet,delayed 81 mg PO DAILY 12/15/19 04/05/25 Unknown History release (Adult Low Dose Aspirin) biotin 5 mg capsule 5 mg PO DAILY 12/15/19 04/05/25 Unknown History glatiramer 20 mg/mL subcutaneous 20 mg subcut DAILY 12/15/19 04/05/25 Unknown History syringe (Copaxone) glucosamine-chondroitin 500 mg-400 1 cap PO TID 08/27/20 04/05/25 Unknown History mg capsule simethicone 125 mg chewable tablet 250 mg PO TID 08/27/20 04/05/25 Unknown History (Gas-X Extra Strength) calcium carbonate (Tums) 1,200 mg PO TID PRN Abdominal Pain 03/05/21 04/05/25 Unknown History desipramine 10 mg tablet 15 mg PO QPM 08/07/21 04/05/25 Unknown History fluticasone propionate 50 1 spray intranasal Q12H 05/19/22 04/05/25 Unknown History mcg/actuation nasal spray,suspension (Flonase Allergy Relief) acetaminophen 500 mg tablet 500 mg PO Q6H PRN Pain 07/28/22 04/05/25 Unknown History (Tylenol Extra Strength) fluoride (sodium) 1.1 % dental gel 1 applic dental HS 07/28/22 04/05/25 Unknown History (PreviDent) omega 9-czt-zxj-fish oil 1,000 mg 1 cap PO TID 08/19/22 04/05/25 Unknown History (120 mg-180 mg) capsule (Fish Oil) exemestane 25 mg tablet 25 mg PO DAILY 07/27/23 04/05/25 Unknown History levothyroxine 175 mcg tablet 175 mcg PO DAILY 02/10/25 04/05/25 Unknown History (Levo-T) esomeprazole magnesium 40 mg 40 mg PO Q12H 03/24/25 04/05/25 Unknown History capsule,delayed release evening primrose oil-linoleic 1 cap PO DAILY 03/24/25 04/05/25 Unknown History acid-gamolenic acid 1,000 mg capsule ([place] Oil) famotidine 20 mg tablet (Acid 20 mg PO DAILY 03/24/25 04/05/25 Unknown History Controller) hyoscyamine sulfate 0.125 mg See Rx Instructions .Route .COMPLEX 03/24/25 04/05/25 Unknown History sublingual tablet sucralfate 100 mg/mL oral 20 ml PO DIRECTED 03/24/25 04/05/25 Unknown History suspension albuterol sulfate 2.5 mg/3 mL mg 05/07/25 Unknown History (0.083 %) solution for nebulization fezolinetant 45 mg tablet ([place]) mg PO 05/07/25 Unknown History galcanezumab-gnlm 120 mg/mL mg subcut 05/07/25 Unknown History subcutaneous syringe (Emgality) nitroglycerin 0.4 mg sublingual mg 05/07/25 Unknown History tablet omeprazole 40 mg capsule,delayed mg 05/07/25 Unknown History release tiotropium 2.5 mcg-olodaterol 2.5 inhalation 05/07/25 Unknown History mcg/actuation mist for inhalation (Stiolto Respimat) Allergies Allergy/AdvReac Type Severity Reaction Status Date / Time adhesive tape Allergy Mild Unknown Verified 03/30/25 11:13 amphetamine (From Adderall) Allergy Mild Other Verified 03/30/25 11:13 armodafinil (From Nuvigil) Allergy Mild Unknown Verified 03/30/25 11:13 aspartame (From Nutrasweet Allergy Mild Headache Verified 03/30/25 11:13 Aspartame) cefuroxime (From Ceftin) Allergy Mild Unknown Verified 03/30/25 11:13 dextroamphetamine (From Allergy Mild Other Verified 03/30/25 11:13 Adderall) gabapentin (From Neurontin) Allergy Mild Unknown Verified 03/30/25 11:13 latex Allergy Mild Unknown Verified 03/30/25 11:13 liver extract Allergy Mild Other Verified 03/30/25 11:13 meperidine (From Demerol) Allergy Mild Unknown Verified 03/30/25 11:13 metoclopramide (From Reglan) Allergy Mild Unknown Verified 03/30/25 11:13 metronidazole (From Flagyl) Allergy Mild Unknown Verified 03/30/25 11:13 pentazocine (From Talwin) Allergy Mild Unknown Verified 03/30/25 11:13 silver nitrate Allergy Mild Unknown Verified 03/30/25 11:13 adhesive Allergy Unknown Unknown Verified 03/30/25 11:13 castor oil Allergy Unknown Unknown Verified 03/30/25 11:13 coconut Allergy Unknown Other Verified 03/30/25 11:13 ergot alkaloids Allergy Unknown Unknown Verified 03/30/25 11:13 erythromycin base Allergy Unknown Unknown Verified 03/30/25 11:13 mustard Allergy Unknown Other Verified 03/30/25 11:13 neomycin Allergy Unknown Unknown Verified 03/30/25 11:13 nitrofurantoin Allergy Unknown Unknown Verified 03/30/25 11:13 nystatin Allergy Unknown Unknown Verified 03/30/25 11:13 oxcarbazepine Allergy Unknown Hives / Verified 03/30/25 11:13 Red Face Penicillins Allergy Unknown Unknown Verified 03/30/25 11:13 polymyxin B Allergy Unknown polymycin Verified 03/30/25 11:13 eye drops spinach Allergy Unknown Other Verified 03/30/25 11:13 bacitracin Allergy Unknown Verified 03/30/25 11:13 nalbuphine (From Nubain) Allergy Unknown Verified 03/30/25 11:13 Review of Systems Review of Systems: CONSTITUTIONAL: Denies body aches, fever, chills, or sweats. EYES: Denies visual changes, redness, or discharge. ENT: Denies rhinorrhea, congestion CARDIOVASCULAR: Denies chest pain, palpitations, or edema. RESPIRATORY: Denies cough or dyspnea. GASTROINTESTINAL: Denies abdominal pain, nausea, vomiting, or diarrhea. SKIN: per HPI MUSCULOSKELETAL: Denies back pain, joint pain, or myalgia. NEUROLOGIC: Denies headache, numbness, tingling, or weakness. [facility] Past Medical History Medical History (Updated 05/07/25 @ 12:26 by Nona Wilcox, GERI) Dyspnea Vitamin D deficiency Osteopenia Diabetes Kidney stones DVT (deep venous thrombosis) Myocardial infarction Migraine headache Osteoarthritis Invasive ductal carcinoma of breast S/p bilateral mastectomy Hyperlipidemia BMI 39.0-39.9,adult BMI 40.0-44.9, adult Hypokalemia Anxiety Chronic bronchitis with acute exacerbation Hypothyroidism Multiple sclerosis Hypokalemia Asthma Hypertension Surgical History Surgical History (Reviewed 04/05/25 @ 14:01 by Tanya Jefferson, [facility]) H/O bilateral mastectomy H/O arthroscopy of shoulder H/O nasal septoplasty History of hysterectomy H/O breast biopsy History of endoscopic sinus surgery H/O colonoscopy History of appendectomy Family History Family History (Reviewed 04/05/25 @ 14:01 by Tanya Jefferson, [facility]) Mother Family history of lung cancer Family history of malignant neoplasm of breast in first degree relative Father Family history of lung cancer Family history of migraine headaches Other Diabetes mellitus Family history of heart disease in male family member before age 55 Family history of kidney disease Social History Social History (Reviewed 04/05/25 @ 14:01 by Tanya Jefferson, [facility]) Smoking packs per day: 2 Smoking cigarettes per day: 40.0 Years smoked: 20 Smoking pack-years: 40.00 Smoking status: Former smoker Second hand tobacco smoke exposure: No Alcohol intake: former Substance use: never Substance use type: does not use Do You Feel Safe in your Home?: Yes Lack of Transportation: No Lack of Food: Never True Current Housing: I Have Housing Concerned About Future Housing: No Difficulty Paying Gas/Electric Bills: No Difficulty Paying for Meds: No Currently Unemployed: YES Education: Bachelor's Degree Difficulty w/ Childcare or Family Care: No Living arrangements: with family 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 Please see nursing chart for further information. There is no relevant family history pertinent to the presenting complaint Exam Narrative: GENERAL: Well-appearing HEAD: Normocephalic, atraumatic. EYES: conjunctivae clear, and EOMI. ENT: Mucous membranes moist. Oropharynx without edema, erythema or lesions. NECK: Supple. No lymphadenopathy CHEST: Clear to auscultation. HEART: Regular rate and rhythm. SKIN: Warm, dry. Scattered round erythematous raised lesions to bilateral axilla, lower abdominal fold extending into the labia, and bilateral buttocks. No lesions noted to chest, back or extremities. NEURO: Alert and oriented x3. Course Course Emergency Course: Patient is aware of diagnosis, understands and agrees to treatment plan. Anticipatory guidance given. Patient agrees to follow-up as directed and is aware of reasons to seek care at the emergency department. Portions of this record may have been created with voice recognition software Level of Care: Express Care Visit Vital Signs Vital signs: Reviewed MDM - Skin/Abscess/Foreign Bdy MDM Narrative Medical decision making narrative: Discussed physical exam findings, rash is most c/w yeast. Reviewed RX. However she is advised to hold the sulfa abx until consulting with Dr Gonzalez. Advised supportive measures and signs/symptoms to go to the ER. Pt is appropriate for outpt treatment and f/u. Differential Diagnosis Differential diagnosis: Likely abscess of skin or subcutaneous tissue, viral exanthem, dermatophytosis, urticaria, herpes zoster, cellulitis, eczema, insect bites, impetigo and contact dermatitis Discharge Plan Discharge Clinical Impression: Dermatitis Patient Disposition: Home Condition: Stable Instructions: Antibiotic Form, Skin Yeast Infection (ED) Additional Instructions: Take medication as directed Wash the area with gentle soap and water only. Dry fully. Use powder such as Desenex to reduce moisture on the skin Avoid scratching when possible to prevent worsening of the condition and disruption of the skin that could lead to bacterial infection To relieve itching, place a cool washcloth or some ice over the area that itches, rather than scratching For now, stop the sulfa antibiotic and discuss with PCP Follow up with primary care provider Go to the ER for worsening symptoms or concerns Patient Language: British Prescriptions: New fluconazole 150 mg tablet 150 mg PO WEEKLY 28 Days Qty: 4 0RF No Action levothyroxine [Levo-T] 175 mcg tablet 175 mcg PO DAILY albuterol sulfate 2.5 mg /3 mL (0.083 %) solution for nebulization fluticasone propionate [Flonase Allergy Relief] 50 mcg/actuation spray,suspension 1 spray intranasal Q12H Rx Instructions: administer into each nostril omega 3-mgd-led-fish oil [Fish Oil] 1,000 mg (120 mg-180 mg) capsule 1 cap PO TID (DME) Peak Air Peak Flow Meter Device See Rx Instructions .Route Qty: 1 1RF Rx Instructions: As directed exemestane 25 mg tablet 25 mg PO DAILY Rx Instructions: must administer after a meal fluticasone propionate 110 mcg/actuation HFA aerosol inhaler 1 puff inhalation Q12H Qty: 12 2RF Rx Instructions: Rinse mouth after each use. furosemide 20 mg tablet 20 mg PO BID Qty: 180 3RF Rx Instructions: This is in addition to her her furosemide 40mg bid acetaminophen [Tylenol Extra Strength] 500 mg Tablet 500 mg PO Q6H PRN (Reason: Pain) fluoride (sodium) [PreviDent] 1.1 % Gel 1 applic DENTAL HS esomeprazole magnesium 40 mg capsule,delayed release(DR/EC) 40 mg PO Q12H sucralfate 100 mg/mL suspension 20 ml PO DIRECTED Rx Instructions: takes 5 times daily before liquid K [place] Oil 1,000 mg capsule 1 cap PO DAILY Patient Comments: takes with exemestane Rx Instructions: administer with a meal hyoscyamine sulfate 0.125 mg tablet, sublingual See Rx Instructions .ROUTE .COMPLEX Rx Instructions: TAKE 1 TABLET BY MOUTH 4 TIMES A DAY NEEDED FOR esophagaeal spasms famotidine [Acid Controller] 20 mg tablet 20 mg PO DAILY ipratropium-albuterol 20-100 mcg/actuation mist 1 puff inhalation QID Qty: 4 0RF Rx Instructions: space evenly during waking hours glatiramer [Copaxone] 20 mg/mL syringe 20 mg SUB-Q DAILY aspirin [Adult Low Dose Aspirin] 81 mg tablet,delayed release (DR/EC) 81 mg PO DAILY biotin 5 mg capsule 5 mg PO DAILY glucosamine-chondroitin 500-400 mg capsule 1 cap PO TID Rx Instructions: give with meal/snack simethicone [Gas-X Extra Strength] 125 mg tablet,chewable 250 mg PO TID calcium carbonate [Tums] 200 mg calcium (500 mg) tablet,chewable 1,200 mg PO TID PRN (Reason: Abdominal Pain) desipramine 10 mg tablet 15 mg PO QPM Rx Instructions: 1.5 tables sublingual for esophageal spasms cholecalciferol (vitamin D3) [Vitamin D3] 25 mcg (1,000 unit) capsule 25 mcg PO DAILY Qty: 100 1RF amantadine HCl 100 mg capsule See Rx Instructions .ROUTE .COMPLEX Qty: 180 3RF Dose Instruction: TAKE 1 CAPSULE BY MOUTH TWICE DAILY Rx Instructions: TAKE 1 CAPSULE BY MOUTH TWICE DAILY montelukast [Singulair] 10 mg tablet 10 mg PO DAILY Qty: 100 2RF pravastatin 40 mg tablet 40 mg PO DAILY Qty: 100 2RF donepezil 10 mg tablet 10 mg PO DAILY Qty: 90 1RF furosemide 40 mg tablet See Rx Instructions .ROUTE .COMPLEX Qty: 180 3RF Dose Instruction: TAKE 1 TABLET BY MOUTH TWICE DAILY Rx Instructions: TAKE 1 TABLET BY MOUTH TWICE DAILY ergocalciferol (vitamin D2) [Vitamin D2] 1,250 mcg (50,000 unit) capsule See Rx Instructions .ROUTE .COMPLEX Qty: 13 3RF Dose Instruction: TAKE 1 CAPSULE BY MOUTH WEEKLY ON FRIDAYS Rx Instructions: TAKE 1 CAPSULE BY MOUTH WEEKLY ON FRIDAYS diltiazem HCl 120 mg capsule,extended release 24hr 120 mg PO DAILY Qty: 100 2RF tamsulosin 0.4 mg capsule See Rx Instructions .ROUTE .COMPLEX Qty: 90 3RF Dose Instruction: TAKE 1 CAPSULE BY MOUTH DAILY Rx Instructions: TAKE 1 CAPSULE BY MOUTH DAILY potassium chloride 20 mEq/15 mL liquid See Rx Instructions .ROUTE .COMPLEX Qty: 83697 3RF Dose Instruction: DILUTE 45 ML (60 MEQ) IN AT LEAST 4 OUNCES OF WATER OR JUICE AND DRINK BY MOUTH 5 TIMES DAILY Rx Instructions: DILUTE 45 ML (60 MEQ) IN AT LEAST 4 OUNCES OF WATER OR JUICE AND DRINK BY MOUTH 7 TIMES DAILY prednisone 10 mg tablet See Rx Instructions .ROUTE .COMPLEX Qty: 75 0RF Dose Instruction: PLEASE SEE ATTACHED FOR DETAILED DIRECTIONS Rx Instructions: 6 po daily x 3 days, then 5 daily x 3 days, then 4 daily x 4 days, then 3 daily x 4 days, then 2 daily x 4 days, then 1 daily x 4 days, then 1/2 daily x 4 days. albuterol sulfate [Ventolin HFA] 90 mcg/actuation HFA aerosol inhaler 2 puff INHALATION QID PRN (Reason: Shortness Of Breath) Qty: 25.5 4RF sulfamethoxazole-trimethoprim 800-160 mg tablet 1 tablet PO Q12H 5 Days Qty: 10 0RF sumatriptan succinate 6 mg/0.5 mL pen injector See Rx Instructions .ROUTE .COMPLEX Qty: 18 3RF Dose Instruction: INJECT 6 MG (0.5 ML) UNDER THE SKIN ONCE, MAY REPEAT DOSE ONCE IN 1 HOUR IF NOT RELIEVED Rx Instructions: INJECT 6 MG (0.5 ML) UNDER THE SKIN ONCE, MAY REPEAT DOSE ONCE IN 1 HOUR IF NOT RELIEVED Follow-up/Referrals: Lobito Gonzalez, [Primary Care Provider] -
[2025-05-07 12:05] VITALS: BP 136/82; PULSE 86; RESP 16; TEMP 36.6; O2SAT 96
== END 2025-05-07 12:35 | disposition home or self-care (01) ==
PROVIDERS: Emergency Provider Nurse Practitioner Family; PCP Internal Medicine
DX: L30.9 Dermatitis, unspecified (principal); Z87.891 Personal history of nicotine dependence; E11.9 Type 2 diabetes mellitus without complications; I25.2 Old myocardial infarction; M19.90 Unspecified osteoarthritis, unspecified site; M85.80 Other specified disorders of bone density and structure, unspecified site; E78.5 Hyperlipidemia, unspecified; E03.9 Hypothyroidism, unspecified; G35 Multiple sclerosis; I10 Essential (primary) hypertension; J45.909 Unspecified asthma, uncomplicated; Z86.718 Personal history of other venous thrombosis and embolism; Z85.3 Personal history of malignant neoplasm of breast; Z90.13 Acquired absence of bilateral breasts and nipples; Z79.82 Long term (current) use of aspirin
CPT/HCPCS: 99213; G0463

== ENCOUNTER 2025-06-11 10:51 | Emergency (ER) | payer MEDICARE, SELFPAY ==
[2025-06-11 11:06] VITALS: BP 148/84; PULSE 90; RESP 16; TEMP 36.5; O2SAT 97
[2025-06-11 11:50] LABS: EDSTREPNEGPOS1 Positive (Negative)
--- NOTE | 2025-06-11 12:23 | ED_ITS ---
HPI - General Adult General Chief complaint: Skin/Abscess/Foreign Body Stated complaint: SWOLLEN LIP/SORE THROAT Time Seen by Provider: 06/11/25 12:00 Source: patient and RN notes reviewed Mode of arrival: ambulatory Limitations: no limitations History of Present Illness HPI narrative: Patient presents today complaining of swelling to the right upper lip, sore throat, and swelling to the left neck. All symptoms noted when she woke up this morning at 6:00. Patient believe she may have been bitten on the lip by an insect. Denies fever, shortness of breath, difficulty swallowing, chest pain, upper respiratory symptoms. Patient recently restarted some clotrimazole troches for thrush from steroid inhalers, but she has used them many times before without issue. She denies any other new products or medications. History of MS, asthma, migraines. Related Data Home Medications ?Medication ?Instructions ?Recorded ?Confirmed ?Last Taken ?Type aspirin 81 mg tablet,delayed 81 mg PO DAILY 12/15/19 05/08/25 Unknown History release (Adult Low Dose Aspirin) biotin 5 mg capsule 5 mg PO DAILY 12/15/19 05/08/25 Unknown History glatiramer 20 mg/mL subcutaneous 20 mg subcut DAILY 12/15/19 05/08/25 Unknown History syringe (Copaxone) glucosamine-chondroitin 500 mg-400 1 cap PO TID 08/27/20 05/08/25 Unknown History mg capsule simethicone 125 mg chewable tablet 250 mg PO TID 08/27/20 05/08/25 Unknown History (Gas-X Extra Strength) calcium carbonate (Tums) 1,200 mg PO TID PRN Abdominal Pain 03/05/21 05/08/25 Un known History desipramine 10 mg tablet 15 mg PO QPM 08/07/21 05/08/25 Unknown History fluticasone propionate 50 1 spray intranasal Q12H 05/19/22 05/08/25 Unknown History mcg/actuation nasal spray,suspension (Flonase Allergy Relief) fluoride (sodium) 1.1 % dental gel 1 applic dental HS 07/28/22 05/08/25 Unknown History (PreviDent) omega 8-kbm-ekp-fish oil 1,000 mg 1 cap PO TID 08/19/22 05/08/25 Unknown History (120 mg-180 mg) capsule (Fish Oil) exemestane 25 mg tablet 25 mg PO DAILY 07/27/23 05/08/25 Unknown History levothyroxine 175 mcg tablet 175 mcg PO DAILY 02/10/25 05/08/25 Unknown History (Levo-T) evening primrose oil-linoleic 1 cap PO DAILY 03/24/25 05/08/25 Unknown History acid-gamolenic acid 1,000 mg capsule (Cecil Oil) famotidine 20 mg tablet (Acid 20 mg PO DAILY 03/24/25 05/08/25 Unknown History Controller) hyoscyamine sulfate 0.125 mg See Rx Instructions .Route .COMPLEX 03/24/25 05/08/25 Unknown History sublingual tablet sucralfate 100 mg/mL oral 20 ml PO DIRECTED 03/24/25 05/08/25 Unknown History suspension galcanezumab-gnlm 120 mg/mL mg subcut 05/07/25 05/08/25 Unknown History subcutaneous syringe (Emgality) nitroglycerin 0.4 mg sublingual mg 05/07/25 05/08/25 Unknown History tablet tiotropium 2.5 mcg-olodaterol 2.5 inhalation 05/07/25 05/08/25 Unknown History mcg/actuation mist for inhalation (Stiolto Respimat) Allergies Allergy/AdvReac Type Severity Reaction Status Date / Time Sulfa (Sulfonamide Allergy Intermediate Itching Verified 06/11/25 11:10 Antibiotics) adhesive tape Allergy Mild Unknown Verified 06/11/25 11:10 amphetamine (From Adderall) Allergy Mild Other Verified 06/11/25 11:10 armodafinil (From Nuvigil) Allergy Mild Unknown Verified 06/11/25 11:10 aspartame (From Nutrasweet Allergy Mild Headache Verified 06/11/25 11:10 Aspartame) cefuroxime (From Ceftin) Allergy Mild Unknown Verified 06/11/25 11:10 dextroamphetamine (From Allergy Mild Other Verified 06/11/25 11:10 Adderall) gabapentin (From Neurontin) Allergy Mild Unknown Verified 06/11/25 11:10 latex Allergy Mild Unknown Verified 06/11/25 11:10 liver extract Allergy Mild Other Verified 06/11/25 11:10 meperidine (From Demerol) Allergy Mild Unknown Verified 06/11/25 11:10 metoclopramide (From Reglan) Allergy Mild Unknown Verified 06/11/25 11:10 metronidazole (From Flagyl) Allergy Mild Unknown Verified 06/11/25 11:10 pentazocine (From Talwin) Allergy Mild Unknown Verified 06/11/25 11:10 silver nitrate Allergy Mild Unknown Verified 06/11/25 11:10 adhesive Allergy Unknown Unknown Verified 06/11/25 11:10 castor oil Allergy Unknown Unknown Verified 06/11/25 11:10 coconut Allergy Unknown Other Verified 06/11/25 11:10 ergot alkaloids Allergy Unknown Unknown Verified 06/11/25 11:10 erythromycin base Allergy Unknown Unknown Verified 06/11/25 11:10 mustard Allergy Unknown Other Verified 06/11/25 11:10 neomycin Allergy Unknown Unknown Verified 06/11/25 11:10 nitrofurantoin Allergy Unknown Unknown Verified 06/11/25 11:10 nystatin Allergy Unknown Unknown Verified 06/11/25 11:10 oxcarbazepine Allergy Unknown Hives / Verified 06/11/25 11:10 Red Face Penicillins Allergy Unknown Unknown Verified 06/11/25 11:10 polymyxin B Allergy Unknown polymycin Verified 06/11/25 11:10 eye drops spinach Allergy Unknown Other Verified 06/11/25 11:10 bacitracin Allergy Unknown Verified 06/11/25 11:10 nalbuphine (From Nubain) Allergy Unknown Verified 06/11/25 11:10 PMFSH Past Medical History Medical History Morbid obesity Dyspnea Vitamin D deficiency Osteopenia Diabetes Kidney stones DVT (deep venous thrombosis) Myocardial infarction Migraine headache Osteoarthritis Invasive ductal carcinoma of breast S/p bilateral mastectomy Hyperlipidemia BMI 39.0-39.9,adult BMI 40.0-44.9, adult Hypokalemia Anxiety Chronic bronchitis with acute exacerbation Hypothyroidism Multiple sclerosis Hypokalemia Asthma Hypertension Surgical History Surgical History H/O bilateral mastectomy H/O arthroscopy of shoulder H/O nasal septoplasty History of hysterectomy H/O breast biopsy History of endoscopic sinus surgery H/O colonoscopy History of appendectomy Family History Family History Mother Family history of lung cancer Family history of malignant neoplasm of breast in first degree relative Father Family history of lung cancer Family history of migraine headaches Other Diabetes mellitus Family history of heart disease in male family member before age 55 Family history of kidney disease Social History Social History (Reviewed 06/11/25 @ 12:27 by Ching Gutierrez, [facility], ) Smoking packs per day: 2 Smoking cigarettes per day: 40.0 Years smoked: 20 Smoking pack-years: 40.00 Smoking status: Former smoker Second hand tobacco smoke exposure: No Alcohol intake: former Substance use: never Substance use type: does not use Do You Feel Safe in your Home?: Yes Lack of Transportation: No Lack of Food: Never True Current Housing: I Have Housing Concerned About Future Housing: No Difficulty Paying Gas/Electric Bills: No Difficulty Paying for Meds: No Currently Unemployed: YES Education: Bachelor's Degree Difficulty w/ Childcare or Family Care: No Living arrangements: with family 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 Please see nursing chart for further information. There is no relevant family history pertinent to the presenting complaint Exam Narrative: GENERAL: Chronically ill-appearing, well-nourished, and in no acute distress. HEAD: Normocephalic, atraumatic. EYES: EOMI. No redness or drainage. Conjunctivae normal. ENT: Mucous membranes pink and moist. Nares clear. Throat mildly erythematous without edema or exudate. Uvula midline. Patient has a small white ulceration on the inner aspect of her right upper lip. Scant amount of swelling over the exterior the lip. No erythema or drainage noted. No area of consistent with insect bite noted. NECK: Normal AROM. Supple. No lymphadenopathy. No obvious external swelling. Tenderness along the left anterior cervical chain. CHEST: No respiratory distress. Clear to auscultation. HEART: Regular rate and rhythm. No murmur appreciated. EXTREMITIES: Normal range of motion. No edema. SKIN: Warm, dry, no rash. Capillary refill normal. Normal skin turgor. NEURO: No focal deficits. Alert and oriented x3. Gait steady with walker. PSYCH: Normal affect. No signs of depression or anxiety. Course Course Level of Care: Express Care Visit Vital Signs Vital signs: Vital Signs Temperature 97.7 F 06/11/25 11:06 Pulse Rate 90 06/11/25 11:06 Respiratory Rate 16 06/11/25 11:06 Blood Pressure 148/84 H 06/11/25 11:06 Pulse Oximetry 97 06/11/25 11:06 Temperature 97.7 F 06/11/25 11:06 Pulse Rate 90 06/11/25 11:06 Respiratory Rate 16 06/11/25 11:06 Blood Pressure 148/84 H 06/11/25 11:06 Pulse Oximetry 97 06/11/25 11:06 Reviewed Medical Decision Making MDM Narrative Medical decision making narrative: 64-year-old chronically ill female patient with history of multiple sclerosis, asthma, hypertension, migraines, presents with sore throat, swollen lip that was present upon waking up this morning. Lesion on a inside of lip appears to be possibly traumatic. Throat is mildly erythematous and rapid strep is positive. She will be treated with course of azithromycin due to multiple drug allergies. Patient has taken azithromycin several times in the past and tolerates it well. She has some tenderness on the left anterior cervical chain with no obvious swelling or erythema to the neck. Patient is speaking in complete sentences, swallowing well. Evaluation of patient's lungs is unremarkable. Recommend PCP follow-up if symptoms persist after finishing the antibiotics. Anticipatory guidance given. Differential Diagnosis Differential Diagnosis: Lymphadenopathy, strep throat, pharyngitis, insect bite, lip trauma Vital Signs Vital Signs: Vital Signs Temperature 97.7 F 06/11/25 11:06 Pulse Rate 90 06/11/25 11:06 Respiratory Rate 16 06/11/25 11:06 Blood Pressure 148/84 H 06/11/25 11:06 Pulse Oximetry 97 06/11/25 11:06 Temperature 97.7 F 06/11/25 11:06 Pulse Rate 90 06/11/25 11:06 Respiratory Rate 16 06/11/25 11:06 Blood Pressure 148/84 H 06/11/25 11:06 Pulse Oximetry 97 06/11/25 11:06 Lab Data Lab results reviewed: Yes I reviewed the patient's lab results. Labs: Lab Results 06/11/25 Range/Units 11:48 POC Grp A Strep Screen Positive (Negative) Critical Care Time Critical Care Time Critical Care Time: No Discharge Plan Discharge Clinical Impression: Strep throat Patient Disposition: Home Condition: Stable Instructions: Antibiotic Form, Strep Throat (DC) Additional Instructions: You have tested positive for strep throat. Please take the azithromycin as prescribed until gone. You will be contagious for 24 hours after starting the medication. Take Tylenol or Ibuprofen for pain or fever, if able. Rest and stay hydrated. Follow up with your PCP in 3 days if symptoms are not improving. Go to the ER immediately if you develop worsening symptoms such as shortness of breath, difficulty swallowing. Your blood pressure was elevated above 120/80 today at Urgent Care. This puts you above the threshold for follow up. Please schedule a followup visit with your personal physician as soon as possible, for further evaluation and treatment. Even blood pressure exceeding 120/80 may indicate pre-hypertension. Patient Language: Ugandan Prescriptions: New azithromycin 500 mg tablet 500 mg PO DAILY 5 Days Qty: 5 0RF No Action levothyroxine [Levo-T] 175 mcg tablet 175 mcg PO DAILY fluconazole 150 mg tablet 150 mg PO WEEKLY 28 Days Qty: 4 0RF nitroglycerin 0.4 mg tablet, sublingual Stiolto Respimat 2.5-2.5 mcg/actuation mist INHALATION Emgality Syringe 120 mg/mL syringe SUBCUT fluticasone propionate [Flonase Allergy Relief] 50 mcg/actuation spray,suspension 1 spray intranasal Q12H Rx Instructions: administer into each nostril omega 4-ros-cya-fish oil [Fish Oil] 1,000 mg (120 mg-180 mg) capsule 1 cap PO TID exemestane 25 mg tablet 25 mg PO DAILY Rx Instructions: must administer after a meal furosemide 20 mg tablet 20 mg PO BID Qty: 180 3RF Rx Instructions: This is in addition to her her furosemide 40mg bid fluoride (sodium) [PreviDent] 1.1 % Gel 1 applic DENTAL HS sucralfate 100 mg/mL suspension 20 ml PO DIRECTED Rx Instructions: takes 5 times daily before liquid K Cecil Oil 1,000 mg capsule 1 cap PO DAILY Patient Comments: takes with exemestane Rx Instructions: administer with a meal hyoscyamine sulfate 0.125 mg tablet, sublingual See Rx Instructions .ROUTE .COMPLEX Rx Instructions: TAKE 1 TABLET BY MOUTH 4 TIMES A DAY NEEDED FOR esophagaeal spasms famotidine [Acid Controller] 20 mg tablet 20 mg PO DAILY ipratropium-albuterol 20-100 mcg/actuation mist 1 puff inhalation QID Qty: 4 0RF Rx Instructions: space evenly during waking hours glatiramer [Copaxone] 20 mg/mL syringe 20 mg SUB-Q DAILY aspirin [Adult Low Dose Aspirin] 81 mg tablet,delayed release (DR/EC) 81 mg PO DAILY biotin 5 mg capsule 5 mg PO DAILY glucosamine-chondroitin 500-400 mg capsule 1 cap PO TID Rx Instructions: give with meal/snack simethicone [Gas-X Extra Strength] 125 mg tablet,chewable 250 mg PO TID calcium carbonate [Tums] 200 mg calcium (500 mg) tablet,chewable 1,200 mg PO TID PRN (Reason: Abdominal Pain) desipramine 10 mg tablet 15 mg PO QPM Rx Instructions: 1.5 tables sublingual for esophageal spasms cholecalciferol (vitamin D3) [Vitamin D3] 25 mcg (1,000 unit) capsule 25 mcg PO DAILY Qty: 100 1RF amantadine HCl 100 mg capsule See Rx Instructions .ROUTE .COMPLEX Qty: 180 3RF Dose Instruction: TAKE 1 CAPSULE BY MOUTH TWICE DAILY Rx Instructions: TAKE 1 CAPSULE BY MOUTH TWICE DAILY montelukast [Singulair] 10 mg tablet 10 mg PO DAILY Qty: 100 2RF pravastatin 40 mg tablet 40 mg PO DAILY Qty: 100 2RF furosemide 40 mg tablet See Rx Instructions .ROUTE .COMPLEX Qty: 180 3RF Dose Instruction: TAKE 1 TABLET BY MOUTH TWICE DAILY Rx Instructions: TAKE 1 TABLET BY MOUTH TWICE DAILY ergocalciferol (vitamin D2) [Vitamin D2] 1,250 mcg (50,000 unit) capsule See Rx Instructions .ROUTE .COMPLEX Qty: 13 3RF Dose Instruction: TAKE 1 CAPSULE BY MOUTH WEEKLY ON FRIDAYS Rx Instructions: TAKE 1 CAPSULE BY MOUTH WEEKLY ON FRIDAYS diltiazem HCl 120 mg capsule,extended release 24hr 120 mg PO DAILY Qty: 100 2RF tamsulosin 0.4 mg capsule See Rx Instructions .ROUTE .COMPLEX Qty: 90 3RF Dose Instruction: TAKE 1 CAPSULE BY MOUTH DAILY Rx Instructions: TAKE 1 CAPSULE BY MOUTH DAILY potassium chloride 20 mEq/15 mL liquid See Rx Instructions .ROUTE .COMPLEX Qty: 44382 3RF Dose Instruction: DILUTE 45 ML (60 MEQ) IN AT LEAST 4 OUNCES OF WATER OR JUICE AND DRINK BY MOUTH 5 TIMES DAILY Rx Instructions: DILUTE 45 ML (60 MEQ) IN AT LEAST 4 OUNCES OF WATER OR JUICE AND DRINK BY MOUTH 7 TIMES DAILY albuterol sulfate [Ventolin HFA] 90 mcg/actuation HFA aerosol inhaler 2 puff INHALATION QID PRN (Reason: Shortness Of Breath) Qty: 25.5 4RF sumatriptan succinate 6 mg/0.5 mL pen injector See Rx Instructions .ROUTE .COMPLEX Qty: 18 3RF Dose Instruction: INJECT 6 MG (0.5 ML) UNDER THE SKIN ONCE, MAY REPEAT DOSE ONCE IN 1 HOUR IF NOT RELIEVED Rx Instructions: INJECT 6 MG (0.5 ML) UNDER THE SKIN ONCE, MAY REPEAT DOSE ONCE IN 1 HOUR IF NOT RELIEVED cyproheptadine 4 mg tablet 4 mg PO Q4H PRN (Reason: itching) Qty: 40 0RF prednisone 5 mg tablet 5 mg PO DIRECTED Qty: 21 0RF Rx Instructions: Six po today, decreasing dose by one daily until gone. (DME) Peak Air Peak Flow Meter Device See Rx Instructions .Route Qty: 1 1RF Rx Instructions: As directed Mounjaro 2.5 mg/0.5 mL pen injector 2.5 mg subcut WEEKLY Qty: 2 0RF Rx Instructions: for 4 weeks donepezil 10 mg tablet 10 mg PO DAILY Qty: 90 3RF clotrimazole 10 mg noe 10 mg mucous membrane .5x daily Qty: 25 1RF fluticasone propionate 110 mcg/actuation HFA aerosol inhaler 1 puff inhalation Q12H Qty: 12 2RF Rx Instructions: Rinse mouth after each use. ciprofloxacin HCl [Cipro] 250 mg tablet 250 mg PO Q12H Qty: 14 0RF Rx Instructions: Hold donepezil while on this medication esomeprazole magnesium 40 mg capsule,delayed release(DR/EC) 40 mg PO Q12H Qty: 180 2RF Follow-up/Referrals: Lobito Gonzalez DO [Primary Care Provider] - Time of Disposition: 11:59
== END 2025-06-11 12:02 | disposition home or self-care (01) ==
PROVIDERS: Emergency Provider Nurse Practitioner; PCP Internal Medicine
DX: J02.0 Streptococcal pharyngitis (principal); E11.9 Type 2 diabetes mellitus without complications; Z79.85 Long-term (current) use of injectable non-insulin antidiabetic drugs; M85.80 Other specified disorders of bone density and structure, unspecified site; I25.2 Old myocardial infarction; Z86.718 Personal history of other venous thrombosis and embolism; E78.5 Hyperlipidemia, unspecified; E03.9 Hypothyroidism, unspecified; G35 Multiple sclerosis; I10 Essential (primary) hypertension; J45.909 Unspecified asthma, uncomplicated; E55.9 Vitamin D deficiency, unspecified; E66.01 Morbid (severe) obesity due to excess calories; Z68.41 Body mass index [BMI] 40.0-44.9, adult; Z87.891 Personal history of nicotine dependence; Z79.82 Long term (current) use of aspirin; Z90.13 Acquired absence of bilateral breasts and nipples
CPT/HCPCS: 87880; 99213; G0463